=== PATIENT | female | born 1955 | race Caucasian/White ===

== ENCOUNTER 2017-09-29 14:19 | Emergency (ER) | payer MEDICARE, MEDICAID, SELFPAY ==
[2017-09-29 14:20] VITALS: BP 158/109; PULSE 110; RESP 26; TEMP 36.3; O2SAT 96; BMI 26.9
[2017-09-29 14:25] VITALS: O2SAT 93
--- NOTE | 2017-09-29 14:42 | RAD_ITS ---
STUDY: X-RAY CHEST REASON FOR EXAM: Female, 61 years old. 3 day history of worsening shortness of breath and fever and chills. TECHNIQUE: PA and lateral views of the chest. COMPARISON: None. FINDINGS: EKG electrodes are seen. Increased markings are seen in the right lower lobe suggestive of a right lower lobe infiltrate superimposed on scarring. Hyperinflation. There is no demonstrated pleural abnormality. Normal size heart. Normal mediastinum and magui. Normal visualized pulmonary arteries. There is atherosclerotic calcification of the aortic arch with tortuosity. There are diffuse degenerative changes of the visualized thoracic spine. Normal visualized ribs, clavicles, and shoulders. There is no demonstrated abnormality of the visualized soft tissue structures of the upper abdomen. RAD/Chest PA and Lateral IMPRESSION: Increased markings in the right lower lobe suggestive of early right lower lobe infiltrate superimposed on bibasilar scarring. Electronically Signed: Wilfred De La Cruz MD at 15:29 EST Tel [phone], Service support ,
--- NOTE | 2017-09-29 14:42 | EKG12_ITS ---
Test Reason : SOB Blood Pressure : / mmHG Vent. Rate : 099 BPM Atrial Rate : 099 BPM P-R Int : 130 ms QRS Dur : 076 ms QT Int : 320 ms P-R-T Axes : 066 057 056 degrees QTc Int : 410 ms Normal sinus rhythm Normal ECG Confirmed by DUKE POWERS, ROBE ([id number]), deputy editor in chief CLINT WISDOM ([id number]) on 10/03/2017 3:16:02 PM Referred By: JOSE DE JESUS Confirmed By:ROBE WALL MD
[2017-09-29] MEDS: 0.9% Normal Saline 1,000 ML 999 ML IV (14:51)
[2017-09-29 14:52] VITALS: PULSE 126; RESP 24
[2017-09-29] MEDS: Ipratropium/Albuterol Sulfate 3 ML AMPUL.NEB INHALATION (14:52)
[2017-09-29] MEDS: MethylPREDNISolone 125 MG/2 ML Vial IV (14:52)
[2017-09-29 14:59] LABS: Absolute Lymphocyte Count 0.54 X10^3/ul (0.83-4.51); Absolute Neutrophil Count 10.5 X10^3/uL (2.0-7.7); Basophil# 0.02 X10^3/uL; Basophil% 0.2 % (0-1); Differential Indicated SCAN CRITERIA MET; Hematocrit 49.5 % (37-47); Hemoglobin 17.3 g/dl (12.0-15.0); Lymphocyte # 0.54 X10^3/ul (4.0); Lymphocyte % 4.6 % (19-41); Mean Corp Hgb Conc 34.9 g/gl (32-36); Mean Corpuscular Hgb 31.1 pg (27.0-32.0); Mean Platelet Vol. 8.6 fl (6.2-12.0); Monocyte# 0.67 X10^3/uL; Monocyte% 5.7 % (0-10); Neutrophil # 10.53 X10^3/uL (2.7-7.7); Neutrophil % 89.2 % (47-70); POSITIVE COUNT NO; POSITIVE DIFFERENTIAL YES; POSITIVE MORPHOLOGY NO; Platelet Count 221 K/mm3 (150-450); RBC Distribution Width CV 14.9 % (11.6-14.6); RBC Distribution Width SD 48.7 fl (35.1-43.9); Red Blood Count 5.56 M/mm3 (4.2-5.4); White Blood Count 11.8 K/mm3 (4.4-11.0)
[2017-09-29 15:01] LABS: Anion Gap 10 (5-15); BUN 15 mg/dL (7-18); BUN/Creat Ratio 23.4 RATIO (10-20); Calcium,Total 8.5 mg/dL (8.5-10.1); Chloride 97 mmol/L (98-107); Creatinine, Serum 0.64 mg/dL (0.55-1.02); EST Glomerular Filtration Rate 99 mL/min (>60); Est Glom Filt Rate - Afr Amer 120 mL/min (>60); Estimated Creatinine Clearance 74.43 ml/min; Glucose 110 mg/dL (70-110); Sodium Level 131 mmol/L (136-145)
[2017-09-29 15:09] LABS: Lactic Acid 1.2 mmol/L (0.4-2.0)
[2017-09-29 15:13] LABS: Differential Comment SCANNED
--- NOTE | 2017-09-29 16:11 | ED.VISSUMM ---
- ER Visit Summary Date of Service: 09/29/17 Chief Complaint: Cough and shortness of breath History of Present Illness: The patient is a 61 F with no local primary care physician. She reports his cough and shortness of breath began 3 days ago. She reports her shortness of breath is mild at this time, but is severe at worst. Is worsened by walking or coughing. She reports that she has not had her inhaler for the past 3 weeks. She does smoke a pack per day. Patient complains of subjective fever and chills. She reports that she has constant chest tightness for the past 3 days. Physical Examination: Vitals: Stable. Afebrile. General: Well-nourished and well-developed. Head: Normocephalic atraumatic. Neck: Supple, no lymphadenopathy. No JVD. Nontender. Cardiovascular: Regular rate and rhythm. No murmurs. Respiratory: No respiratory distress. Moderate wheezing bilaterally with mildly decreased air movement. Abdominal: Soft, nontender, nondistended, normal bowel sounds. No guarding, rebound, or peritoneal signs. Back: Nontender. Extremities: Nontender, no edema. Skin: Normal color, no rash. Neurologic: Alert and oriented ?3. Cranial nerves II through XII are intact. Normal strength and sensation. Psych: Normal affect. Test Results: EKG is sinus at 99 with no acute changes. Chest x-ray shows an early right lower lobe infiltrate. CBC is marked for white count 11.8, H&H is 17.3 and 49.5, segmented neutrophils 89, monocytes of 5. Chem-7 is more for sodium 131 chloride of 97. Lactic acid is normal. Emergency Department Course and Treatment: She was treated albuterol and Atrovent aerosols. She was given Solu-Medrol IV. On repeat exam she feels much improved and would like to go home. Treatment Plan: She has a pneumonia severity index of 53 making her class II. She is treated with Levaquin here. She will be discharged with Levaquin, albuterol, and prednisone. Instructed follow-up Dr. Mas in 3-5 days for another exam. Return to the emergency department for any worsening symptoms. Disposition: To home in improved and stable condition. Impression: 1. Pneumonia, community-acquired. 2. COPD. This note was generated with [employer]moreation software. It may contain incorrect words, spelling, and punctuation that were not noted in review of the chart prior to signing ED Disposition - Plan for ED Patient: Disposition: Home or Assisted Living Chief Complaint: Shortness of Breath Instructions: ED Pneumonia Adult Prescriptions: Albuterol Inhaler [Ventolin Hfa] 1 - 2 puff INHALATION Q4H PRN PRN #1 inhaler PRN Reason: Wheezing Levofloxacin [Levaquin] 750 mg PO DAILY #7 tablet Prednisone 10 mg PO DAILY #63 tablet
[2017-09-29] MEDS: levoFLOXacin 750 MG Tablet PO (16:29)
[2017-09-29 16:30] VITALS: BP 152/92; PULSE 99; RESP 18; O2SAT 93
== END 2017-09-29 16:35 | disposition home or self-care (01) ==
PROVIDERS: Emergency Provider Emergency Medicine; Family Provider Nurse Practitioner Family; PCP Nurse Practitioner Family
DX: J44.0 Chronic obstructive pulmonary disease with (acute) lower respiratory infection (principal); J18.9 Pneumonia, unspecified organism; I10 Essential (primary) hypertension; R19.7 Diarrhea, unspecified; F43.10 Post-traumatic stress disorder, unspecified; X58.XXXA Exposure to other specified factors, initial encounter; Y93.9 Activity, unspecified; Y92.9 Unspecified place or not applicable; Y99.9 Unspecified external cause status; F17.200 Nicotine dependence, unspecified, uncomplicated; Z79.899 Other long term (current) drug therapy
CPT/HCPCS: 36415; 71046; 80048; 83605; 85025; 87040; 93005; 94640; 96361; 96374; 99285

== ENCOUNTER 2018-11-22 08:53 | Emergency (ER) | payer MEDICARE, SELFPAY ==
[2018-11-22 08:53] VITALS: BP 166/112; PULSE 93; RESP 26; TEMP 37; O2SAT 92; BMI 32.0
--- NOTE | 2018-11-22 09:03 | EKG12_ITS ---
Test Reason : Blood Pressure : / mmHG Vent. Rate : 080 BPM Atrial Rate : 080 BPM P-R Int : 144 ms QRS Dur : 082 ms QT Int : 384 ms P-R-T Axes : 071 049 026 degrees QTc Int : 442 ms Normal sinus rhythm Normal ECG Confirmed by ROBE WALL MD ([id number]), research editor KINGS SAAVEDRA ([id number]) on 11/23/2018 1:09:27 PM Referred By: ADAM Confirmed By:ROBE WALL MD
--- NOTE | 2018-11-22 09:06 | ED.VISSUMM ---
- ER Visit Summary Date of Service: 11/22/18 Chief Complaint: Shortness of breath History of Present Illness: The patient is a 63 F with history of COPD. She uses inhalers at home. She is not on home oxygen. Patient reports a one-week history of increasing shortness of breath, wheezing, and cough. She denies fever. She states she is using her inhalers more than normal. She has not been on steroids for her breathing since she had pneumonia last year. Physical Examination: Blood pressure is 166/112, temperature 98.6, heart rate 93, respiratory rate 26, pulse ox 92% on room air. Patient sitting upright in bed she is slightly tachypneic. She is able to speak full sentences. Head neck examination otherwise unremarkable. Heart is regular rate and rhythm. Lung sounds with tight expiratory wheezes throughout. Abdomen is soft nontender. Test Results: CBC significant for hemoglobin concentrated at 17.1. Chemistry studies normal. EKG is sinus 80 with no sign of acute ischemia. Portable chest x-ray shows hyperinflation with no acute abnormality. Emergency Department Course and Treatment: Patient was given Solu-Medrol along with DuoNeb and 2 albuterol treatments. On repeat evaluation she feels much improved. Respiratory rate is 18 and pulse ox is 100% on room air. Patient be treated with a course of Zithromax as well as prednisone at home. Test results are discussed with her and she will continue her albuterol as well. Treatment Plan: [] Disposition: Discharge Impression: COPD exacerbation This note was generated with [employer] dictation software. It may contain incorrect words, spelling, and punctuation that were not noted in review of the chart prior to signing ED Disposition - Plan for ED Patient: Referrals: Margarito Acevedo, CIRCLE SAW OPERATOR-C [NON-STAFF] -
--- NOTE | 2018-11-22 09:10 | RAD_ITS ---
STUDY: X-RAY CHEST REASON FOR EXAM: Female, 63 years old. 3 day history of shortness of breath. TECHNIQUE: Single AP portable view of the chest. COMPARISON: Comparison is made with prior study dated September 29, 2017. FINDINGS: EKG electrodes are seen. Hyperinflation. Mild increased linear markings at the lung bases suggestive of a mild scarring. No acute infiltrate is seen. Decreased bronchovascular markings in the upper lobes suggestive of emphysematous changes. There is no demonstrated pleural abnormality. Normal size heart. Normal mediastinum and magui. Normal visualized pulmonary arteries. There is atherosclerotic tortuosity of the aortic arch and descending thoracic aorta. There are degenerative changes of the visualized thoracic spine. Normal visualized ribs, clavicles, and shoulders. There is no demonstrated abnormality of the visualized soft tissue structures of the upper abdomen. RAD/Chest 1 View (Portable) IMPRESSION: Hyperinflation. No acute abnormality is seen. Electronically Signed: Wilfred De La Cruz, at 9:43 EDT , Service support ,
[2018-11-22 09:32] VITALS: PULSE 69; RESP 20
[2018-11-22 09:32] LABS: Absolute Lymphocyte Count 1.28 X10^3/ul (0.83-4.51); Absolute Neutrophil Count 4.4 X10^3/uL (2.0-7.7); Basophil# 0.03 X10^3/uL; Basophil% 0.5 % (0-1); Eosinophil# 0.22 X10^3/uL; Eosinophils% 3.4 % (0-5); Hematocrit 52.4 % (37-47); Hemoglobin 17.1 g/dl (12.0-15.0); Lymphocyte # 1.28 X10^3/ul (4.0); Mean Corp Hgb Conc 32.6 g/gl (32-36); Mean Corpuscular Hgb 28.2 pg (27.0-32.0); Mean Corpuscular Volume 86.3 fL (81-99); Mean Platelet Vol. 8.5 fl (6.2-12.0); Monocyte# 0.44 X10^3/uL; Monocyte% 6.9 % (0-10); Neutrophil # 4.41 X10^3/uL (2.7-7.7); Neutrophil % 68.9 % (47-70); Platelet Count 259 K/mm3 (150-450); RBC Distribution Width CV 15.3 % (11.6-14.6); Red Blood Count 6.07 M/mm3 (4.2-5.4); White Blood Count 6.4 K/mm3 (4.4-11.0)
[2018-11-22] MEDS: Albuterol 2.5 MG/3 ML VIAL.NEB. INHALATION ×2 (09:32)
[2018-11-22] MEDS: Ipratropium/Albuterol Sulfate 3 ML AMPUL.NEB INHALATION (09:32)
[2018-11-22 09:33] VITALS: TEMP 37; O2SAT 97
[2018-11-22 09:33] LABS: POSITIVE COUNT NO; POSITIVE DIFFERENTIAL NO; POSITIVE MORPHOLOGY NO
[2018-11-22 09:48] LABS: Anion Gap 9 (5-15); BUN 10 mg/dL (7-18); BUN/Creat Ratio 11.9 RATIO (10-20); Calcium,Total 9.1 mg/dL (8.5-10.1); Chloride 103 mmol/L (98-107); Creatinine, Serum 0.84 mg/dL (0.55-1.02); EST Glomerular Filtration Rate 72 mL/min (>60); Est Glom Filt Rate - Afr Amer 88 mL/min (>60); Estimated Creatinine Clearance 52.81 ml/min; Glucose 106 mg/dL (74-106); Potassium 3.8 mmol/L (3.5-5.1); Sodium Level 140 mmol/L (136-145)
[2018-11-22] MEDS: MethylPREDNISolone 125 MG/2 ML Vial IV (09:53)
[2018-11-22] MEDS: 0.9% Normal Saline 1,000 ML 150 ML IV (09:54)
[2018-11-22 10:14] VITALS: BP 160/80; PULSE 82; RESP 18; TEMP 36.5; O2SAT 97; O2SAT 99
--- NOTE | 2018-11-22 11:00 | ED.DEP ---
ED Disposition - Plan for ED Patient: Disposition: Home or Assisted Living Instructions: ED COPD Flare Prescriptions: Azithromycin [Zithromax] 250 mg PO DAILY #4 tablet Prednisone 10 mg PO UD #33 tablet Referrals: Margarito Acevedo NP-C [NON-STAFF] - 1 Week
[2018-11-22 11:34] VITALS: BP 152/86; PULSE 74; RESP 18; TEMP 36.2; O2SAT 97
[2018-11-22] MEDS: Azithromycin 250 MG Tablet 500 MG PO (11:36)
== END 2018-11-22 11:37 | disposition home or self-care (01) ==
PROVIDERS: Emergency Provider Emergency Medicine; Family Provider Family Medicine; PCP Family Medicine
DX: J44.1 Chronic obstructive pulmonary disease with (acute) exacerbation (principal); I10 Essential (primary) hypertension; Z72.0 Tobacco use; Z87.01 Personal history of pneumonia (recurrent); Z79.899 Other long term (current) drug therapy
CPT/HCPCS: 71045; 80048; 85025; 93005; 94640; 96361; 96374; 99285; J7030

== ENCOUNTER → 2019-06-18 08:33 | Outpatient (CLI) | payer MEDICARE, SELFPAY ==
--- NOTE | 2019-06-18 08:37 | RAD_ITS ---
STUDY: X-RAY - LUMBAR SPINE REASON FOR EXAM: Female, 63 years old. Low back pain TECHNIQUE: 3 view(s) of the lumbar spine were obtained. COMPARISON: None FINDINGS: Normal lumbar lordosis. There is no substantial scoliosis. There is a 5 mm anterolisthesis of L4 on L5, otherwise normal alignment of the vertebrae. No compression fractures. Moderate loss of disc height at L2-L3. Mild loss of disc height at L3-L4 and L4-L5. Multilevel facet joint degenerative disease. There is atherosclerotic calcification of the abdominal aorta without a demonstrated aneurysm. There is a right sacral stimulator. RAD/Lumbar Spine 2 or 3 Views IMPRESSION: No acute abnormality. Multilevel degenerative changes. Electronically Signed: Festus Durham MD at 22:26 EDT , Service support ,
--- NOTE | 2019-06-18 08:40 | RAD_ITS ---
STUDY: X-RAY - PELVIS AND BILATERAL HIPS REASON FOR EXAM: Female, 63 years old. Hip pain. TECHNIQUE: AP view of the pelvis.? 2 views of the right hip, and 2 views of the left hip were obtained. COMPARISON: None. FINDINGS: There is a non-specific bowel gas pattern. There is a right sacral stimulator. There is cortical sclerosis and osteophyte formation of the sacroiliac joint consistent with degenerative osteoarthritic changes. Normal bilateral superior and inferior pubic rami. Normal pubic symphysis. Normal bilateral ischial tuberosities. Normal visualized right femoral head. Normal right acetabulum. Normal right hip joint. Normal visualized left femoral head. Normal left acetabulum. Normal left hip joint. RAD/Hips B/L min 2 views w/ Pelvis IMPRESSION: Normal bilateral hips. No acute fractures or dislocations. Probable bilateral sacroiliac joint degenerative changes. Electronically Signed: Festus Durham MD at 22:42 EDT , Service support ,
== END ==
PROVIDERS: Family Provider Family Medicine; PCP Family Medicine; Referring Provider Anesthesiology Pain Medicine; Visit Provider Anesthesiology Pain Medicine
DX: M54.9 Dorsalgia, unspecified (principal); M25.559 Pain in unspecified hip
CPT/HCPCS: 72100; 73521

== ENCOUNTER → 2019-07-23 15:54 | Outpatient (CLI) | payer MEDICARE, SELFPAY ==
[2019-07-23 17:45] LABS: Amphetamine Urine VISTA NEGATIVE (<1000 ng/mL); Barbiturate Urine VISTA NEGATIVE (< 200 ng/mL); Benzodiazepine Urine VISTA NEGATIVE (< 200 ng/mL); Cocaine Urine VISTA NEGATIVE (< 300 ng/mL); Ecstacy Urine VISTA NEGATIVE (< 500 ng/mL); Methadone Urine VISTA NEGATIVE (< 300 ng/mL); PCP Urine VISTA NEGATIVE (< 25 ng/mL); THC Urine VISTA POSITIVE (< 50 ng/mL); Vista UDS pH Range 6
== END ==
PROVIDERS: Family Provider Family Medicine; PCP Family Medicine; Referring Provider Anesthesiology Pain Medicine; Visit Provider Anesthesiology Pain Medicine
DX: F11.20 Opioid dependence, uncomplicated (principal)
CPT/HCPCS: 80307

== ENCOUNTER → 2019-10-19 15:26 | Outpatient (CLI) | payer MEDICARE, MEDICAID, SELFPAY ==
--- NOTE | 2019-10-19 15:35 | CT_ITS ---
STUDY: CT LUMBAR SPINE WITHOUT CONTRAST REASON FOR EXAM: Female, 64 years old. Back pain and leg pain RADIATION DOSAGE (If Supplied By Facility): CTDIvol = ( 18.46 ) mGy, DLP = ( 536.36 ) mGycm TECHNIQUE: CT of the lumbar spine was performed without contrast. Sagittal and coronal images were reconstructed. Individualized dose optimization techniques were used for this CT. COMPARISON: None FINDINGS: Examination is moderately limited due to suboptimal technique related to suboptimally low radiation dose. Protocol modifications were not performed to allow for patient''s large body habitus. Osseous structures are diagnostic. Assessment of soft tissues is limited. Evaluation of canal contents is nondiagnostic as they cannot be resolved. Some diagnostic information is available. There is minor levoscoliosis of the lumbar spine with preserved lateral alignment. Vertebral bodies are intact without destructive lesions. There is grade 1 degenerative anterolisthesis of L4 on L5, less than 2 mm. Mineralization is normal. Paraspinous soft tissues and SI joints are normal. There is a right sacral stimulation wire. There is probable mild to moderate spondylotic thecal sac stenosis at L2-L3. There is probable severe thecal sac stenosis at L3-L4, L4-L5. There are probably moderate right L3-L4 and L4-L5 foraminal stenoses. CT/Spine Lumbar without Contrast IMPRESSION: 1. Technically limited exam, see above for description. If definitive treatment, such as surgery, is contemplated a repeat diagnostic examination is advised. 2. Probable severe thecal sac stenosis at L3-L4 and L4-L5. Electronically Signed: Carlos A Conner, at 16:43 EST Tel , Service support ,
== END ==
PROVIDERS: PCP Family Medicine; Referring Provider Anesthesiology Pain Medicine; Visit Provider Anesthesiology Pain Medicine
DX: M54.9 Dorsalgia, unspecified (principal); M79.606 Pain in leg, unspecified
CPT/HCPCS: 72131

== ENCOUNTER 2020-03-12 16:31 | Emergency (ER) | payer MEDICARE, MEDICAID, SELFPAY ==
[2020-03-12 16:31] VITALS: BP 120/73; PULSE 69; RESP 16; TEMP 36.3
[2020-03-12 16:32] VITALS: BP 120/73; PULSE 69; RESP 16; TEMP 36.3; BMI 28.9
--- NOTE | 2020-03-12 16:50 | ED.VIS.GEN ---
History of Present Illness Chief Complaint: Lower Extremity Injury Informant: Patient Onset: Today Current Severity: Moderate Maximum Severity: Moderate Narrative: Patient present secondary left ankle injury. She was coming down some steps, missed the last step and rolled her ankle causing her to fall to the ground. She is abrasions to her left knee. She states whenever she tries to weight-bear it feels like hot knives shooting up from her ankle. She denies any other injury. - Past Medical History (1) Hypertension Status: Chronic (2) COPD (chronic obstructive pulmonary disease) Status: Chronic (3) PTSD (post-traumatic stress disorder) Status: Chronic Past Medical History - Allergies and Home Meds Allergies/Adverse Reactions: Allergies Sulfa (Sulfonamide Antibiotics) Adverse Reaction (Verified 11/22/18 08:55) Nausea Primary Care Physician: Octaviano Adkins MD [Primary Care Provider] - Prior records reviewed: Yes Smoking Status: Former smoker Review of Systems General: Denies: Chills, Fever Eyes: Denies: Visual changes - bilaterally ENT: Denies: Bilateral ear pain Cardiovascular: Denies: Chest pain Respiratory: Denies: Dyspnea, Cough Gastrointestinal: Denies: Abdominal pain, Nausea, Vomiting, Diarrhea Genitourinary: Denies: Dysuria Musculoskeletal: Reports: Swelling, Extremity Pain. Denies: Neck pain, Back pain Skin: Reports: Abrasions Hematologic: Denies: Easy bruising, Easy bleeding Allergy: Denies: Uticaria Physical Exam Vital Signs/Narrative: Vital Signs Temp Pulse Resp BP 03/12/20 16:32 97.4 F L 69 16 120/73 03/12/20 16:31 97.4 F L 69 16 120/73 Inital Vital Signs reviewed: Yes General: Well nourished, Well developed Head: Normocephalic ENT: Moist mucous membranes Neck: Supple Cardiovascular: Regular rate, Regular rhythm Respiratory: No distress, CTA bilaterally Abdomen: Soft, Nontender Extremities: - - Lateral malleolar tenderness to palpation. Significant edema. No tenderness over the foot itself. No tenderness of the proximal fibula. Skin: - - Abrasion noted to the anterior knee without bony tenderness to this area. Neurological: Alert, Oriented x3 Psychological: Normal affect Diagnostic/Tx/Re-eval Impressions Ankle X-Ray 03/12/20 17:08 IMPRESSION: Possible nondisplaced fracture through the tip of the lateral malleolus. No other suspicion of fractures. Electronically Signed: Festus Durham MD at 17:34 EDT , Service support , 03/12/20 17:08 Ankle min 3 Views [RAD] Stat - Medical Decision Making Patient was given naproxen here. Ankle was iced and elevated. There is a possible nondisplaced fracture through the distal lateral malleolus. This was reviewed with the patient. Should be given a walking boot and crutches. She is referred to orthopedics for follow-up. ED Disposition - Plan for ED Patient: Disposition: Home or Assisted Living Diagnosis: Ankle fracture, lateral malleolus, closed Instructions: ED Ankle Fracture Prescriptions: Hydrocodone Bitart/Apap 5-325 [[place] 5MG-325MG] 1 tablet PO Q6H PRN PRN 3 Days #10 tablet PRN Reason: Pain Transmission Status: Sent to [facility] #30 Referrals: Berta Jackson DO [STAFF PHYSICIAN] - 5-7 Days
--- NOTE | 2020-03-12 17:08 | RAD_ITS ---
STUDY: X-RAY - LEFT ANKLE REASON FOR EXAM: Female, 64 years old. LEFT ANKLE PAIN AFTER FALL TECHNIQUE: 3 view(s) of the ankle. COMPARISON: None. FINDINGS: Possible nondisplaced fracture through the tip of the lateral malleolus. No other suspicion of fractures. No dislocations. Normal visualized distal tibia . Normal tibiotalar articulation and ankle mortise. Normal visualized talus and calcaneus. The visualized subtalar, talonavicular, calcaneocuboid and tarsal articulations are normal. Prominent lateral soft tissue swelling. RAD/Ankle min 3 Views IMPRESSION: Possible nondisplaced fracture through the tip of the lateral malleolus. No other suspicion of fractures. Electronically Signed: Festus Durham MD at 17:34 EDT , Service support ,
[2020-03-12] MEDS: Naproxen 500 MG Tablet PO (17:28)
[2020-03-12 18:36] VITALS: BP 122/71; PULSE 78; RESP 15; O2SAT 99
== END 2020-03-12 18:36 | disposition home or self-care (01) ==
PROVIDERS: Emergency Provider Emergency Medicine; PCP Family Medicine
DX: S82.65XA Nondisplaced fracture of lateral malleolus of left fibula, initial encounter for closed fracture (principal); S80.212A Abrasion, left knee, initial encounter; W10.9XXA Fall (on) (from) unspecified stairs and steps, initial encounter; Y93.9 Activity, unspecified; Y92.9 Unspecified place or not applicable; Y99.9 Unspecified external cause status; J44.9 Chronic obstructive pulmonary disease, unspecified; I10 Essential (primary) hypertension; F43.10 Post-traumatic stress disorder, unspecified; Z79.899 Other long term (current) drug therapy; Z87.891 Personal history of nicotine dependence
CPT/HCPCS: 73610; 99284

== ENCOUNTER 2020-03-28 17:02 | Emergency (ER) | payer MEDICARE, MEDICAID, SELFPAY ==
[2020-03-14 12:53] VITALS: BMI 28.9
[2020-03-28] VITALS (8 sets, daily range): BP systolic 118–135; BP diastolic 75–101; PULSE 83–112; RESP 13–22; TEMP 36.8–38.7; O2SAT 91–98; BMI 28.9
--- NOTE | 2020-03-28 17:21 | EKG12_ITS ---
Test Reason : ILLNESS Blood Pressure : / mmHG Vent. Rate : 101 BPM Atrial Rate : 101 BPM P-R Int : 140 ms QRS Dur : 082 ms QT Int : 330 ms P-R-T Axes : 056 031 049 degrees QTc Int : 427 ms Sinus tachycardia Otherwise normal ECG Confirmed by DUKE POWERS, ROBE ([id number]), editor publications KINGS SAAVEDRA ([id number]) on 04/01/2020 8:41:21 AM Referred By: CHEVY Confirmed By:ROBE WALL MD
[2020-03-28] MEDS: 0.9% Normal Saline 1,000 ML 250 ML IV (18:12)
[2020-03-28] MEDS: Ceftriaxone 1 GM/50 ML BAG IV (18:12)
--- NOTE | 2020-03-28 18:13 | ED.DCSUM_ITS ---
History of Present Illness Chief Complaint: Fever Informant: Patient, Family Onset: Today Context: Sudden Onset Timing: Continuous Quality: Documented temperature 101.0 ?F Location: Home Current Severity: Mild Maximum Severity: Mild Worsened by: Nothing Relieved by: Nothing Associated Symptoms: Frequency and urgency Narrative: Patient is a 64-year-old woman who presents with documented fever to 101.0 ?F. Patient's also complaining of frequency and urgency. She had a urinary tract infection 6 months ago. She denies headache, visual, ocular auditory symptoms. She reports runny nose due to chronic allergies. She denies any auditory or ear symptoms. She denies sore throat. She denies change in taste or smell. She denies cough or shortness of breath. She denies chest discomfort. She does report nausea without vomiting or diarrhea. She denies flank pain. She denies skin lesion or rash. She denies orthostatic symptoms. He denies allergy to penicillin or cephalosporin. Prior similar symptoms: Yes Recent Illness/Hospitalization: No - Past Medical History (1) COPD (chronic obstructive pulmonary disease) Status: Chronic (2) Hypertension Status: Chronic (3) PTSD (post-traumatic stress disorder) Status: Chronic Past Medical History - Allergies and Home Meds Allergies/Adverse Reactions: Allergies Sulfa (Sulfonamide Antibiotics) Adverse Reaction (Verified 03/28/20 17:02) Nausea Primary Care Physician: Octaviano Adkins MD [Primary Care Provider] - Prior records reviewed: Yes - Urinary tract infection 6 months ago Surgical History: noncontributory Lives: With Family Smoking Status: Former smoker Alcohol: None Drugs: None Review of Systems General: Reports: Chills, Fever, Malaise. Denies: Subjective, Sweats, Weight loss Eyes: Denies: Visual changes - bilaterally ENT: Reports: Rhinorrhea. Denies: Bilateral ear pain, Sore throat Cardiovascular: Denies: Chest pain, Palpitations Respiratory: Denies: Dyspnea, Cough, Dyspnea on exertion Gastrointestinal: Reports: Nausea. Denies: Abdominal pain, Vomiting, Diarrhea Genitourinary: Reports: Frequency. Denies: Dysuria, Hematuria Musculoskeletal: Denies: Myalgias, Arthralgias, Neck pain, Back pain, Swelling, Extremity Pain Skin: Denies: Rash, Wounds Neurological: Denies: Headache, Weakness, Parasthesia, Numbness, -, - Endocrine: Denies: Polyuria, Polydipsia Hematologic: Denies: Easy bruising, Easy bleeding Physical Exam Vital Signs/Narrative: Vital Signs Temp Pulse Resp BP Pulse Ox 03/28/20 17:51 101.6 F H 99 13 128/95 H 94 03/28/20 17:36 91 03/28/20 17:15 110 H 22 H 118/92 H 94 03/28/20 17:03 100.7 F H 112 H 18 135/101 H 92 Inital Vital Signs reviewed: Yes General: Well nourished, Well developed, No Acute Distress Head: Normocephalic, Atraumatic Eyes: Perrl, EOMI. Negative for: Pale conjunctiva, Scleral icterus ENT: Moist mucous membranes, No rhinorrhea, TM's clear Neck: Supple, Nontender, No lymphadenopathy, No JVD Cardiovascular: Regular rhythm, No murmurs, Normal S1, Normal S2, Tachycardia Respiratory: No distress, CTA bilaterally, Chest nontender, - - Patient is tachypneic and breathing greater than 20 times a minute not 18 is documented Abdomen: Soft, Nontender, Nondistended, Normal bowel sounds, No masses Rectal: Deferred Back: Nontender, Normal Inspection. Negative for: CVA tenderness Extremities: Nontender, No edema Skin: Normal color, No rash Neurological: Alert, Oriented x3, Cranial nerves II-XII grossly intact, Normal Strength, Normal Sensation, Normal DTR Psychological: Normal affect, Normal Mood Diagnostic/Tx/Re-eval Laboratory Results 03/28/20 03/28/20 03/28/20 17:48 17:48 17:48 WBC 16.6 H RBC 4.71 Hgb 13.2 Hct 39.3 MCV 83.4 MCH 28.0 MCHC 33.6 RDW Std Deviation 43.4 RDW Coeff of Ronny 14.2 Plt Count 338 MPV 8.6 Immature Gran % (Auto) 1.400 H Neut % (Auto) 84.5 H Lymph % (Auto) 6.3 L [place] % (Auto) 7.1 Eos % (Auto) 0.4 Baso % (Auto) 0.3 Absolute Neuts (auto) 14.0 H Absolute Lymphs (auto) 1.04 Nucleated RBC % 0 PT 13.8 INR 1.1 APTT 32.2 Sodium 131 L Potassium 4.5 Chloride 99 Carbon Dioxide 28.0 Anion Gap 4 L BUN 13 Creatinine 0.87 Estim Creat Clear Calc 50.31 Est GFR (MDRD) Af Amer 84 Est GFR (MDRD) Non-Af 69 BUN/Creatinine Ratio 14.9 Glucose 108 H Lactic Acid Calcium 9.1 Total Bilirubin 0.80 AST 44 H ALT 35 Alkaline Phosphatase 127 H Total Protein 7.6 Albumin 2.7 L Globulin 4.9 H Albumin/Globulin Ratio 0.6 L Urine Color Urine Clarity Urine pH Ur Specific [place] Urine Protein Urine Glucose (UA) Urine Ketones Urine Occult Blood Urine Nitrite Urine Bilirubin Urine Urobilinogen Ur Leukocyte Esterase Urine RBC Urine WBC Ur Squamous Epith Cells Urine Bacteria Urine Mucus 03/28/20 03/28/20 17:48 18:14 WBC RBC Hgb Hct MCV MCH MCHC RDW Std Deviation RDW Coeff of Ronny Plt Count MPV Immature Gran % (Auto) Neut % (Auto) Lymph % (Auto) [place] % (Auto) Eos % (Auto) Baso % (Auto) Absolute Neuts (auto) Absolute Lymphs (auto) Nucleated RBC % PT INR APTT Sodium Potassium Chloride Carbon Dioxide Anion Gap BUN Creatinine Estim Creat Clear Calc Est GFR (MDRD) Af Amer Est GFR (MDRD) Non-Af BUN/Creatinine Ratio Glucose Lactic Acid 0.8 Calcium Total Bilirubin AST ALT Alkaline Phosphatase Total Protein Albumin Globulin Albumin/Globulin Ratio Urine Color YELLOW Urine Clarity Turbid Urine pH 5.0 Ur Specific [place] 1.015 Urine Protein 100 H Urine Glucose (UA) Normal Urine Ketones 5 H Urine Occult Blood 250 H Urine Nitrite Positive H Urine Bilirubin Negative Urine Urobilinogen Normal Ur Leukocyte Esterase 500 H Urine RBC 10-25 SEEN Urine WBC >100 SEEN Ur Squamous Epith Cells 5-10 SEEN Urine Bacteria 3+ Urine Mucus 0 SEEN Does have sepsis. There is no evidence of severe sepsis. Patient states she feels well enough to go home. Patient does not meet criteria for full admission. Will discharge with prescription for antibiotics. She was given specific instructions to return. - EKG Initial EKG Interpretation: Sinus Tachycardia - Sinus tachycardia with a ventricular rate of 101. DE interval 140 ms. QRS duration 82 ms. QT duration 330 ms. [place] normal. The only abnormality is sinus tachycardia. - Medical Decision Making Patient with fever and urinary symptoms. Sepsis work-up was initiated to de termine if she does have a urinary tract infection. If urine is unremarkable will obtain chest x-ray and test for COVID. She did receive 1 g of Rocephin IV piggyback. ED Disposition - Plan for ED Patient: Disposition: Home or Assisted Living Diagnosis: Urinary tract infection, Sepsis, Sinus tachycardia by electrocardiogram Instructions: ED CYSTITIS Female Adult Prescriptions: Cephalexin [Keflex] 500 mg PO Q6 #30 cap Transmission Status: Pending to [facility] #30 Referrals: Octaviano Adkins MD [Primary Care Provider] - 3-5 Days
[2020-03-28 18:23] LABS: Mucous, Urine 0 SEEN /hpf (<or=2+)
[2020-03-28 18:23] LABS: Absolute Lymphocyte Count 1.04 X10^3/uL (0.83-4.51); Basophil# 0.05 X10^3/uL; Basophil% 0.3 % (0-1); Eosinophil# 0.06 X10^3/uL; Eosinophils% 0.4 % (0-5); Hematocrit 39.3 % (37-47); Hemoglobin 13.2 g/dL (12.0-15.0); Lymphocyte # 1.04 X10^3/ul (4.0); Lymphocyte % 6.3 % (19-41); Mean Corp Hgb Conc 33.6 g/dL (32-36); Mean Corpuscular Volume 83.4 fL (81-99); Mean Platelet Vol. 8.6 fl (6.2-12.0); Monocyte# 1.18 X10^3/uL; Monocyte% 7.1 % (0-10); NRBC Flagged by Analyzer 0 % (0-5); Neutrophil # 14.03 X10^3/uL (2.7-7.7); Neutrophil % 84.5 % (47-70); Platelet Count 338 K/mm3 (150-450); RBC Distribution Width CV 14.2 % (11.6-14.6); RBC Distribution Width SD 43.4 fl (35.1-43.9); Red Blood Count 4.71 M/mm3 (4.2-5.4); White Blood Count 16.6 K/mm3 (4.4-11.0)
[2020-03-28 18:24] LABS: ALB/GLOB Ratio 0.6 RATIO (0.9-2.4); AST(SGOT) 44 U/L (15-37); Alanine Aminotransfer ALT/SGPT 35 U/L (13-56); Albumin, Serum 2.7 g/dL (3.2-5.0); Alkaline Phosphatase 127 U/L (45-117); Anion Gap 4 (5-15); BUN 13 mg/dL (7-18); BUN/Creat Ratio 14.9 RATIO (10-20); Calcium,Total 9.1 mg/dL (8.5-10.1); Chloride 99 mmol/L (98-107); Creatinine, Serum 0.87 mg/dL (0.55-1.02); EST Glomerular Filtration Rate 69 mL/min (>60); Est Glom Filt Rate - Afr Amer 84 mL/min (>60); Estimated Creatinine Clearance 50.31 ml/min; Globulin 4.9 g/dL (2.2-4.2); Glucose 108 mg/dL (74-106); Potassium 4.5 mmol/L (3.5-5.1); Protein, Total 7.6 g/dL (6.4-8.2); Sodium Level 131 mmol/L (136-145)
[2020-03-28 18:27] LABS: Lactic Acid 0.8 mmol/L (0.4-1.9)
[2020-03-28 18:32] LABS: International Normalized Ratio 1.1; Prothrombin Time (Protime)PT. 13.8 SECONDS (11.7-14.9)
[2020-03-28 18:33] LABS: Partial Thromboplast Time 32.2 Seconds (24.1-36.2)
[2020-03-28 18:54] LABS: Glucose, Dipstick Normal (Normal); Ketone-Dipstick 5 mg/dl (Negative); Leukocyte Esterase-Dipstick 500 /ul (Negative); Nitrite-Dipstick Positive (Negative); Occult Blood-Urine 250 /ul (Negative); Protein-Dipstick 100 mg/dl (Negative); Specific Gravity, Urine 1.015 (1.002-1.030); Urine Bilirubin Dipstick Negative (Negative); Urine Urobilinogen Normal (Normal)
[2020-03-28 19:12] LABS: Color, Urine YELLOW (Yellow); Urine Clarity Turbid (Clear)
[2020-03-28 19:21] LABS: White Blood Cells >100 SEEN /hpf (0-5)
[2020-03-28 19:22] LABS: Bacteria 3+ /hpf (None Seen); Red Blood Cells-Urine 10-25 SEEN /hpf (0-5); Squamous Epithelial Cells - UA 5-10 SEEN /hpf (5-10)
[2020-03-28] MEDS: Acetaminophen 500 MG Tablet 1000 MG PO (19:22)
== END 2020-03-28 20:23 | disposition home or self-care (01) ==
PROVIDERS: Emergency Provider Emergency Medicine; PCP Family Medicine
DX: A41.9 Sepsis, unspecified organism (principal); N39.0 Urinary tract infection, site not specified; J44.9 Chronic obstructive pulmonary disease, unspecified; I10 Essential (primary) hypertension; F43.10 Post-traumatic stress disorder, unspecified; Z79.899 Other long term (current) drug therapy; Z87.891 Personal history of nicotine dependence; Z87.440 Personal history of urinary (tract) infections; Z88.2 Allergy status to sulfonamides
CPT/HCPCS: 80053; 81001; 83605; 85025; 85610; 85730; 87040; 87077; 87086; 87088; 87186; 93005; 96361; 96365; 99284; J7030

== ENCOUNTER → 2020-04-11 13:08 | Outpatient (CLI) | payer MEDICARE, MEDICAID, SELFPAY ==
[2020-03-28 17:03] VITALS: BMI 28.9
--- NOTE | 2020-04-11 13:10 | RAD_ITS ---
STUDY: X-RAY - LEFT ANKLE REASON FOR EXAM: Female, 64 years old. 1 MONTH FX F/U, PAIN TECHNIQUE: 3 view(s) of the ankle. COMPARISON: Prior study of 03/12/2020 FINDINGS: Normal visualized distal tibia and fibula. There has been interval healing of previously noted nondisplaced transverse lateral malleolar fracture seen previously. Normal tibiotalar articulation and ankle mortise. Normal visualized talus and calcaneus. The visualized subtalar, talonavicular, calcaneocuboid and tarsal articulations are normal. The soft tissue structures are unremarkable. RAD/Ankle min 3 Views IMPRESSION: Interval healing of previously noted nondisplaced lateral malleolar fracture. Electronically Signed: Cedrick Sandy MD at 16:54 EDT , Service support ,
== END ==
PROVIDERS: PCP Family Medicine; Referring Provider Physician Assistant; Visit Provider Physician Assistant
DX: S82.65XA Nondisplaced fracture of lateral malleolus of left fibula, initial encounter for closed fracture (principal); X58.XXXA Exposure to other specified factors, initial encounter; Y93.9 Activity, unspecified; Y92.9 Unspecified place or not applicable; Y99.9 Unspecified external cause status
CPT/HCPCS: 73610

== ENCOUNTER 2020-09-13 18:53 | Inpatient (IN) | payer MEDICARE, MEDICAID, SELFPAY ==
[2020-04-11 13:10] VITALS: BMI 28.9
[2020-09-13] VITALS (8 sets, daily range): BP systolic 86–113; BP diastolic 58–79; PULSE 72–110; RESP 15–24; TEMP 35.6–36.7; O2SAT 90–99; BMI 32.0
--- NOTE | 2020-09-13 19:07 | EKG12_ITS ---
Test Reason : SOB Blood Pressure : / mmHG Vent. Rate : 100 BPM Atrial Rate : 100 BPM P-R Int : 128 ms QRS Dur : 076 ms QT Int : 324 ms P-R-T Axes : 063 049 026 degrees QTc Int : 417 ms Normal sinus rhythm Nonspecific ST abnormality Abnormal ECG Confirmed by DUKE POWERS, ROBE ([id number]), technical editor CLINT WISDOM ([id number]) on 09/17/2020 6:51:45 AM Referred By: ADAM Confirmed By:ROBE WALL MD
--- NOTE | 2020-09-13 19:09 | ED.DCSUM_ITS ---
History of Present Illness Chief Complaint: Weakness Detail of Chief Complaint: Weak, dizzy, short of breath, sweats Informant: Patient Onset: Weeks Context: Gradual Onset Current Severity: Moderate Maximum Severity: Moderate Narrative: Patient presents secondary to shortness of breath, weakness, dizziness. Patient states that she has had shortness of breath and weakness for the past 3 weeks. She has been seen by her PCP twice. She was first placed on antibiotic and steroid taper as she does have a history of COPD. She reported no improvement when she went back she was placed on a 28-day steroid taper. She is still on this currently. Patient states she is just not getting any better. Tonight she had a temperature up to 100.0 and did take ibuprofen prior to arrival. She states that she has sweats tonight. - Past Medical History (1) COPD (chronic obstructive pulmonary disease) Status: Chronic (2) Hypertension Status: Chronic (3) PTSD (post-traumatic stress disorder) Status: Chronic Past Medical History - Allergies and Home Meds Allergies/Adverse Reactions: Allergies Sulfa (Sulfonamide Antibiotics) Adverse Reaction (Verified 09/13/20 18:53) Nausea Primary Care Physician: Octaviano Adkins MD [Primary Care Provider] - Prior records reviewed: Yes Surgical History: noncontributory Smoking Status: Former smoker Review of Systems General: Reports: Fever, Sweats Eyes: Denies: Visual changes - bilaterally ENT: Denies: Bilateral ear pain Cardiovascular: Denies: Chest pain Respiratory: Reports: Dyspnea, Cough, Sputum Gastrointestinal: Denies: Abdominal pain, Vomiting, Diarrhea Genitourinary: Denies: Dysuria Musculoskeletal: Denies: Swelling, Extremity Pain Skin: Denies: Rash Neurological: Reports: Weakness. Denies: Headache Hematologic: Denies: Easy bruising, Easy bleeding Allergy: Denies: Uticaria Physical Exam Vital Signs/Narrative: Vital Signs Temp Pulse Resp BP Pulse Ox 09/13/20 18:54 96.0 F L 110 H 24 H 111/69 94 Inital Vital Signs reviewed: Yes General: Well nourished, Well developed Head: Normocephalic Neck: Supple Cardiovascular: Regular rate, Regular rhythm Respiratory: No distress, Decreased Air Movement, - - Mild tachypnea Abdomen: Soft, Nontender, Hypoactive bowel sounds Extremities: Nontender, No edema Skin: Normal color Neurological: Alert, Oriented x3 Psychological: Normal affect Diagnostic/Tx/Re-eval Chest X-Ray - ED: 1 View, Read by ED Physician, Normal, Heart, Lungs, Mediastinum Impressions Chest X-Ray 09/13/20 19:50 IMPRESSION: No acute findings. Electronically Signed: Christin Jhaveri MD at 20:26 EST Tel , Service support , Chest CTA 09/13/20 20:22 IMPRESSION: 1. No pulmonary embolism or arterial dissection. 2. COPD. Electronically Signed: Christin Jhaveri MD at 21:53 EST Tel , Service support , 09/13/20 19:50 Chest 1 View (Portable) [RAD] Stat 09/13/20 20:22 CTA Chest W/WO Contrast [CT] Stat Laboratory Results 09/13/20 09/13/20 09/13/20 19:20 19:25 19:25 WBC 21.9 H RBC 5.91 H Hgb 16.2 H Hct 47.8 H MCV 80.9 L MCH 27.4 MCHC 33.9 RDW Std Deviation 47.6 H RDW Coeff of Ronny 17.2 H Plt Count 323 MPV 8.2 Immature Gran % (Auto) 1.900 H Neut % (Auto) 92.5 H Lymph % (Auto) 2.1 L [place] % (Auto) 3.0 Eos % (Auto) 0.1 Baso % (Auto) 0.4 Absolute Neuts (auto) 20.3 H Absolute Lymphs (auto) 0.46 L Nucleated RBC % 0 D-Dimer Quant (PE/DVT) 1.44 H* Sodium Potassium Chloride Carbon Dioxide Anion Gap BUN Creatinine Estim Creat Clear Calc Est GFR (MDRD) Af Amer Est GFR (MDRD) Non-Af BUN/Creatinine Ratio Glucose Lactic Acid Calcium Troponin I Urine Color Urine Clarity Urine pH Ur Specific [place] Urine Protein Urine Glucose (UA) Urine Ketones Urine Occult Blood Urine Nitrite Urine Bilirubin Urine Urobilinogen Ur Leukocyte Esterase Urine RBC Urine WBC Ur Squamous Epith Cells Urine Bacteria Urine Mucus COVID-19 ([facility]) Not Detected 0109/13/20 09/13/20 19:25 19:25 21:45 WBC RBC Hgb Hct MCV MCH MCHC RDW Std Deviation RDW Coeff of Ronny Plt Count MPV Immature Gran % (Auto) Neut % (Auto) Lymph % (Auto) [place] % (Auto) Eos % (Auto) Baso % (Auto) Absolute Neuts (auto) Absolute Lymphs (auto) Nucleated RBC % D-Dimer Quant (PE/DVT) Sodium 130 L Potassium 4.0 Chloride 99 Carbon Dioxide 24.0 Anion Gap 7 BUN 28 H Creatinine 1.40 H Estim Creat Clear Calc 31.26 Est GFR (MDRD) Af Amer 48 L Est GFR (MDRD) Non-Af 40 L BUN/Creatinine Ratio 20.0 Glucose 151 H Lactic Acid 1.3 Calcium 9.5 Troponin I < 0.015 Urine Color Yellow Urine Clarity Clear Urine pH 5.0 Ur Specific [place] 1.010 Urine Protein 30 H Urine Glucose (UA) Normal Urine Ketones Negative Urine Occult Blood 150 H Urine Nitrite Positive H Urine Bilirubin Negative Urine Urobilinogen Normal Ur Leukocyte Esterase 25 H Urine RBC 0-5 SEEN Urine WBC 5-10 SEEN Ur Squamous Epith Cells 0-5 SEEN Urine Bacteria 1+ Urine Mucus 0 SEEN COVID-19 ([facility]) - EKG Initial EKG Interpretation: Sinus Rhythm - Sinus at 100 bpm with no significant ST change. - Medical Decision Making Patient was given a DuoNeb treatment. Nursing staff did advise that the patient's O2 sat was between 89 and 90% on room air and she was placed on 2 L nasal cannula. They also note the patient's blood pressure did drop into the high 80s systolic. She is currently receiving IV fluids and most recent pressure was 103 systolic. Patient states she does feel improved with oxygen in place. Chest x-ray is unremarkable. Blood work is significant for elevated white count, however she has been on steroids for the last 3 weeks as well. Lactic acid is normal. D-dimer is elevated however CTA does not reveal evidence of PE. Covid PCR is negative. Urinalysis does return with sign of infection. Urine culture will be sent and she is given a dose of IV Rocephin. Patient be admitted for further treatment. ED Disposition - Plan for ED Patient: Disposition: Acute Care Hospital [facility] Diagnosis: Sepsis, UTI (urinary tract infection), COPD exacerbation Referrals: Octaviano Adkins MD [Primary Care Provider] -
[2020-09-13] MEDS: Ipratropium/Albuterol Sulfate 3 ML AMPUL.NEB INHALATION (19:29)
[2020-09-13 19:37] LABS: Absolute Lymphocyte Count 0.46 X10^3/uL (0.83-4.51); Absolute Neutrophil Count 20.3 X10^3/uL (2.0-7.7); Basophil# 0.08 X10^3/uL; Basophil% 0.4 % (0-1); Eosinophil# 0.03 X10^3/uL; Eosinophils% 0.1 % (0-5); Hematocrit 47.8 % (37-47); Hemoglobin 16.2 g/dL (12.0-15.0); Lymphocyte # 0.46 X10^3/ul (4.0); Lymphocyte % 2.1 % (19-41); Mean Corp Hgb Conc 33.9 g/dL (32-36); Mean Corpuscular Hgb 27.4 pg (27.0-32.0); Mean Corpuscular Volume 80.9 fL (81-99); Mean Platelet Vol. 8.2 fl (6.2-12.0); Monocyte# 0.66 X10^3/uL; NRBC Flagged by Analyzer 0 % (0-5); Neutrophil # 20.27 X10^3/uL (2.7-7.7); Neutrophil % 92.5 % (47-70); POSITIVE DIFFERENTIAL YES; Platelet Count 323 K/mm3 (150-450); RBC Distribution Width CV 17.2 % (11.6-14.6); RBC Distribution Width SD 47.6 fl (35.1-43.9); Red Blood Count 5.91 M/mm3 (4.2-5.4); White Blood Count 21.9 K/mm3 (4.4-11.0)
[2020-09-13 19:49] LABS: D-Dimer Quantitative (DVT/PE) 1.44 FEU/ug/m (0.27-0.49); Differential Indicated SCAN CRITERIA MET
--- NOTE | 2020-09-13 19:50 | RAD_ITS ---
STUDY: X-RAY CHEST REASON FOR EXAM: Female, 64 years old. SOB, WEAKNESS, DIZZINESS. TECHNIQUE: Single AP portable view of the chest. COMPARISON: 11/22/2018. FINDINGS: No pleural effusion, vascular congestion or acute pulmonary inflammatory change. Mild chronic interstitial fibrosis. Normal size heart. Normal mediastinum and magui. Normal visualized pulmonary arteries. Normal visualized aortic arch and descending thoracic aorta. Normal visualized thoracic spine. Normal visualized ribs, clavicles, and shoulders. There is no demonstrated abnormality of the visualized soft tissue structures of the upper abdomen. RAD/Chest 1 View (Portable) IMPRESSION: No acute findings. Electronically Signed: Christin Jhaveri MD at 20:26 EST Tel , Service support ,
[2020-09-13 20:19] LABS: Anion Gap 7 (5-15); BUN 28 mg/dL (7-18); Calcium,Total 9.5 mg/dL (8.5-10.1); Chloride 99 mmol/L (98-107); EST Glomerular Filtration Rate 40 mL/min (>60); Est Glom Filt Rate - Afr Amer 48 mL/min (>60); Estimated Creatinine Clearance 31.26 ml/min; Glucose 151 mg/dL (74-106); Lactic Acid 1.3 mmol/L (0.4-1.9); Sodium Level 130 mmol/L (136-145)
--- NOTE | 2020-09-13 20:21 | ED.RN ---
PT'S BP 88/58, O2% 89-90% ROOM AIR. PATIENT PLACED ON 2L O2 VIA NC. DR. ADAM DOE.
--- NOTE | 2020-09-13 20:22 | CT_ITS ---
STUDY: CTA CHEST REASON FOR EXAM: Female, 64 years old. SOB/WEAK/DIZZY. Hx of COPD, emphysema and HTN RADIATION DOSAGE (If Supplied By Facility): CTDIvol = ( 10.74 ) mGy, DLP = ( 393.35 ) mGycm TECHNIQUE: The examination was performed with the intravenous administration of IV 75mL [id number]-370. Post-processing of the angiographic images was performed, with multiplanar reformation and 3D reconstruction. Individualized dose optimization techniques were used for this CT. COMPARISON: None. FINDINGS: The heart and pericardium are normal. The aorta is normal in caliber. No aneurysm or dissection. There is no mediastinal mass or adenopathy. There is no hilar or axillary adenopathy. There is no evidence of pulmonary embolus. There is no pleural effusion. There is no pulmonary consolidation. Moderate centrilobular emphysema. Visualized abdomen is unremarkable. There is no osseous abnormality. CT/CTA Chest W/WO Contrast IMPRESSION: 1. No pulmonary embolism or arterial dissection. 2. COPD. Electronically Signed: Christin Jhaveri MD at 21:53 EST Tel , Service support ,
[2020-09-13] MEDS: 0.9% Normal Saline 1,000 ML 999 ML IV ×2 (20:32→22:05)
[2020-09-13 21:52] LABS: Mucous, Urine 0 SEEN /hpf (<or=2+)
[2020-09-13 22:11] LABS: Color, Urine Yellow (Yellow); Glucose, Dipstick Normal (Normal); Ketone-Dipstick Negative (Negative); Leukocyte Esterase-Dipstick 25 /ul (Negative); Nitrite-Dipstick Positive (Negative); Occult Blood-Urine 150 /ul (Negative); Protein-Dipstick 30 mg/dl (Negative); Urine Bilirubin Dipstick Negative (Negative); Urine Clarity Clear (Clear); Urine Urobilinogen Normal (Normal)
[2020-09-13 22:18] LABS: White Blood Cells 5-10 SEEN /hpf (0-5)
[2020-09-13 22:19] LABS: Bacteria 1+ /hpf (None Seen); Red Blood Cells-Urine 0-5 SEEN /hpf (0-5); Squamous Epithelial Cells - UA 0-5 SEEN /hpf (5-10)
--- NOTE | 2020-09-13 22:38 | HP.PCM_ITS ---
Problem List (1) Hypertension Status: Chronic (2) COPD (chronic obstructive pulmonary disease) Status: Chronic (3) PTSD (post-traumatic stress disorder) Status: Chronic (4) Sepsis Status: Acute (5) UTI (urinary tract infection) Status: Acute (6) COPD exacerbation Status: Chronic History of Present Illness Date of Admission: 09/13/20 Chief Complaint: light headedness The patient is a 64 year old F with a significant history of PTSD; and COPD who presents to the emergency department with a 2-week history of lightheadedness. Associated with her symptoms is shortness of breath and fatigue. Patient has been on two of steroids with the last steroid prescribed for a 28days taper. Reportedly she saw Dr. Adkins her PCP and was told that she has lung infection. She has completed a course of antibiotics. At the emergency department her Covid PCR was negative. Past Medical History Past Medical History (Chronic Problems): Chronic Problems Hypertension (Chronic) COPD (chronic obstructive pulmonary disease) (Chronic) PTSD (post-traumatic stress disorder) (Chronic) COPD exacerbation (Chronic) Allergies Sulfa (Sulfonamide Antibiotics) Adverse Reaction (Verified 09/13/20 18:53) Nausea Home Medications: Ambulatory Orders Medication Instructions Recorded Albuterol Inhaler [Ventolin Hfa] 1 - 2 puff INHALATION Q4H PRN PRN 09/29/17 #1 inhaler Aripiprazole [Abilify] 15 mg PO DAILY 09/29/17 Prazosin HCl [Minipress] 1 mg PO DAILY 09/29/17 Sertraline HCl [Zoloft] 100 mg PO DAILY 09/29/17 busPIRone [Buspar] 1 mg PO Q6H 09/13/20 Surgical History: - - Multiple D&Cs; ; hysterectomy Smoking Status: Former smoker - She quit smoking cigarettes about 3 weeks ago. - *Family History Maternal History Items: Cancer Paternal History Items: Heart Disease, - - Clotting disorder Review of Systems Constitutional: Reports: Weakness, Fatigue. Denies: Chills, Fever, Weight Change HEENT: Denies: Head Aches, Sinus Congestion, Sinus Drainage Cardiovascular: Denies: Chest Pain, Palpitations Respiratory: Reports: Shortness of Breath. Denies: Cough, Shortness of breath at rest, Sputum production Gastrointestinal: Denies: Abdominal Pain, Nausea, Vomiting Genitourinary: Denies: Dysuria Musculoskeletal: Denies: Joint Pain, Joint Tenderness Skin: Denies: Rash, Wounds Neurological: Denies: Numbness, Tingling, Focal weakness Psychiatric: Denies: Anxiety, Depression, Homicidal Ideations, Suicidal Ideations Hematologic/ Lymphatic: Denies: Easy Bruising, Easy Bleeding VTE Information - Inpt Only VTE Present on Admission: No VTE Mechan Device Prophylaxis: None VTE Pharm Prophylaxis ordered?: Yes Patient Problems: Active and Suspected Problems Sepsis (Acute) UTI (urinary tract infection) (Acute) - Physical Exam Vitals/I&O's: Vital Signs Temp Pulse Resp BP Pulse Ox 98.0 F 78 16 103/59 L 96 09/13/20 22:08 09/13/20 22:08 09/13/20 22:08 09/13/20 22:08 09/13/20 22:08 Oxygen Flow Rate (L/min) 2 Oxygen Delivery Method Nasal Cannula Weight: 79.379 kg Body Mass Index (BMI) 32.0 Intake and Output for Last 24 Hours 09/11/20 09/12/20 09/13/20 23:59 23:59 23:59 Intake Total 1000 / 1000 Balance 1000 / 1000 General: Alert, Oriented x3, Cooperative HEENT: Atraumatic, PERRLA, EOMI, Normocephalic Neck: Supple, No JVD, Negative Carotid Bruits Lungs: Rhonchi, Wheezes Cardiovascular: Regular rate, Normal S1, Normal S2, No murmurs Abdomen: Bowel Sounds Present, Soft, Non Tender Extremities: No edema, Capillary Refill Less than 3 Seconds Skin: No rashes, No breakdown Musculoskeletal: No Tenderness to Palpation of Joints or Extremities Neurological: Cranial nerves II-XII grossly intact Psych/Mental Status: Normal Affect, Appropriate Laboratory Results 09/13/20 19:20: COVID-19 ([facility]) Not Detected 09/13/20 19:25: WBC 21.9 H, RBC 5.91 H, Hgb 16.2 H, Hct 47.8 H, MCV 80.9 L, MCH 27.4, MCHC 33.9, RDW Std Deviation 47.6 H, RDW Coeff of Ronny 17.2 H, Plt Count 323, MPV 8.2, Immature Gran % (Auto) 1.900 H, Neut % (Auto) 92.5 H, Lymph % (Auto) 2.1 L, [place] % (Auto) 3.0, Eos % (Auto) 0.1, Baso % (Auto) 0.4, Absolute Neuts (auto) 20.3 H, Absolute Lymphs (auto) 0.46 L, Nucleated RBC % 0 09/13/20 19:25: D-Dimer Quant (PE/DVT) 1.44 H* 09/13/20 19:25: Sodium 130 L, Potassium 4.0, Chloride 99, Carbon Dioxide 24.0, Anion Gap 7, BUN 28 H, Creatinine 1.40 H, Estim Creat Clear Calc 31.26, Est GFR (MDRD) Af Amer 48 L, Est GFR (MDRD) Non-Af 40 L, BUN/Creatinine Ratio 20.0, Glucose 151 H, Calcium 9.5, Troponin I < 0.015 09/13/20 19:25: Lactic Acid 1.3 09/13/20 21:45: Urine Color Yellow, Urine Clarity Clear, Urine pH 5.0, Ur Specific [place] 1.010, Urine Protein 30 H, Urine Glucose (UA) Normal, Urine Ketones Negative, Urine Occult Blood 150 H, Urine Nitrite Positive H, Urine Bilirubin Negative, Urine Urobilinogen Normal, Ur Leukocyte Esterase 25 H, Urine RBC 0-5 SEEN, Urine WBC 5-10 SEEN, Ur Squamous Epith Cells 0-5 SEEN, Urine Bacteria 1+, Urine Mucus 0 SEEN Current Medications Ceftriaxone Sodium (Rocephin) 1 gm in 50 mls @ 100 mls/hr IV X1 ONE Stop: 09/13/20 22:50 Assessment/Plan All Active Problems Sepsis (Acute) UTI (urinary tract infection) (Acute) The patient is a 64 year old F with a significant history of PTSD; COPD who presents emergency department with a 2-week history of lightheadedness; shortness of breath and fatigue; and found to have hypotension; leukocytosis and abnormal urinalysis as well as elevation of creatinine above her baseline. Severe sepsis. White count on presentation was 21.9. But this could secondary to demargination from steroid use. Also noted to have bandemia with immature granulocyte of 1.9%.D-dimer was positive but follow-up chest CT a did not show any pulmonary embolism or acute dissection. Likewise chest x-ray did not show any acute findings. Patient initially with blood pressure of 111/69 but later found to have hypotension requiring normal saline bolus. Review of medical department labs showed abnormal urinalysis. Although patient's urinalysis is abnormal patient denies urinary symptoms. With hypotension will treat as severe sepsis. Received ceftriaxone emergency department. Ceftriaxone continued. Urine culture and blood culture was obtained emergency department follow. Lactic acid is 1.3. Blood culture urine culture was obtained in the emergency department; follow. Acute cystitis Treatment as an severe sepsis. Shortness of breath and lightheadedness We will get an echocardiogram. FADUMO On presentation was 1.40 baseline creatinine is less than 1. BUN over creatinine is 20. Received IV fluid bolus at emergency department. Continue patient on gentle IV hydration. Trend BMP. Hyponatremia Sodium of 130 likely secondary to hypovolemia. IV hydration as above Trend BMP. COPD Patient with moderate rhonchi and wheezes. Unclear whether she is in the exacerbation. On home prednisone. Will start patient on prednisone 40 mg daily. See DuoNeb at emergency department. Will start patient on scheduled DuoNeb. As needed albuterol continued. DVT prophylaxis Subcutaneous Lovenox Inpatient E&M: [id number] Init Hosp L3
[2020-09-13] MEDS: Ceftriaxone 1 GM/50 ML BAG IV (22:45)
--- NOTE | 2020-09-13 23:38 | ECHOD_ITS ---
Version 2 Reason For Study: DYSPNEA/SOB Procedure This was a 2D Doppler, Color Flow transthoracic echocardiogram. The study was technically difficult. PT was uncomfortable and SOB. Exam performed portable in patient room. Left Ventricle Normal LV size. Left ventricular systolic function is normal. The estimated ejection fraction is 60 %. Stage 2 diastolic dysfunction. No regional wall motion abnormalities noted. Right Ventricle Normal RV size. Normal systolic function. Atria Normal left atrium. Normal right atrium. Mitral Valve Normal mitral valve. Tricuspid Valve Normal tricuspid valve. Aortic Valve Trisinus/trileaflet aortic valve. Mild (1+) aortic valve insufficiency. Great Vessels Normal aortic root. The pulmonary artery is normal size. Normal inferior vena cava. Pericardium/Pleural No pericardial effusion. MMode/2D Measurements & Calculations LVIDd: 4.7 cm IVSd: 0.99 cm Ao root diam: 3.2 cm LVIDs: 3.1 cm LVPWd: 0.87 cm RVDd: 2.7 cm FS: 33.8 % LAV(MOD-bp): 36.0 ml LA A4 area: 13.2 cm2 LA dimension(2D): 3.4 cm LAV(MOD-bp) Indexed: 20.0 ml/m2 LAV(MOD-sp2): 38.1 ml LAV(MOD-sp4): 33.6 ml RA A4 area: 12.6 cm2 Time Measurements MV dec time: 0.19 sec Doppler Measurements & Calculations MV E max josé miguel: 102.6 cm/sec Lat Peak E' José Miguel: 9.1 cm/sec Med Peak E' José Miguel: 10.4 cm/sec MV A max josé miguel: 79.4 cm/sec E/E' lat: 11.2 E/E' med: 9.8 MV E/A: 1.3 Ao V2 max: 165.6 cm/sec AI max josé miguel: 368.6 cm/sec LV V1 max: 122.8 cm/sec Ao max P.0 mmHg AI max P.3 mmHg LV V1 max P.0 mmHg Ao V2 mean: 113.2 cm/sec AI dec slope: 201.6 cm/sec2 LV V1 mean P.8 mmHg Ao mean P.8 mmHg AI P1/2t: 535.4 msec LV V1 mean: 92.9 cm/sec Ao V2 VTI: 28.4 cm LV V1 VTI: 24.2 cm PA V2 max: 95.7 cm/sec Interpretation Summary Normal LV size. Left ventricular systolic function is normal. The estimated ejection fraction is 60 %. Mild (1+) aortic valve insufficiency. Stage 2 diastolic dysfunction. Ordering Physician: Chang De Souza Referring Physician: Octaviano Adkins Performed By: Gwendolyn Holt, RDCS, RVT
--- NOTE | 2020-09-13 23:55 | PCS.PANDOC ---
PANDEMIC DOCUMENTATION INITIATED: Date: 09/13/20 Time: 23:55
[2020-09-14] VITALS (16 sets, daily range): BP systolic 98–143; BP diastolic 54–71; PULSE 69–103; RESP 16–22; TEMP 36.5–38.1; O2SAT 91–98; BMI 30.9
[2020-09-14] MEDS: 0.9% Normal Saline 1,000 ML 100 ML IV ×3 (00:20→20:36)
[2020-09-14] MEDS: busPIRone 5 MG Tablet 10 MG PO ×3 (05:00→17:28)
[2020-09-14] MEDS: Ipratropium/Albuterol Sulfate 3 ML AMPUL.NEB INHALATION ×3 (07:11→20:01)
[2020-09-14 07:34] LABS: Absolute Lymphocyte Count 0.66 X10^3/uL (0.83-4.51); Absolute Neutrophil Count 15.2 X10^3/uL (2.0-7.7); Basophil# 0.02 X10^3/uL; Basophil% 0.1 % (0-1); Eosinophil# 0.01 X10^3/uL; Eosinophils% 0.1 % (0-5); Hemoglobin 14.6 g/dL (12.0-15.0); Lymphocyte # 0.66 X10^3/ul (4.0); Lymphocyte % 3.9 % (19-41); Mean Corp Hgb Conc 31.7 g/dL (32-36); Mean Corpuscular Hgb 26.4 pg (27.0-32.0); Mean Corpuscular Volume 83.3 fL (81-99); Mean Platelet Vol. 8.2 fl (6.2-12.0); Monocyte# 0.98 X10^3/uL; Monocyte% 5.7 % (0-10); NRBC Flagged by Analyzer 0 % (0-5); Neutrophil # 15.24 X10^3/uL (2.7-7.7); Neutrophil % 89.1 % (47-70); Platelet Count 271 K/mm3 (150-450); RBC Distribution Width CV 16.6 % (11.6-14.6); RBC Distribution Width SD 50.5 fl (35.1-43.9); Red Blood Count 5.52 M/mm3 (4.2-5.4); White Blood Count 17.1 K/mm3 (4.4-11.0)
[2020-09-14 07:54] LABS: Anion Gap 6 (5-15); BUN 20 mg/dL (7-18); BUN/Creat Ratio 16.8 RATIO (10-20); Calcium,Total 8.4 mg/dL (8.5-10.1); Chloride 104 mmol/L (98-107); Creatinine, Serum 1.19 mg/dL (0.55-1.02); EST Glomerular Filtration Rate 48 mL/min (>60); Est Glom Filt Rate - Afr Amer 58 mL/min (>60); Estimated Creatinine Clearance 36.78 ml/min; Glucose 102 mg/dL (74-106); Potassium 4.6 mmol/L (3.5-5.1); Sodium Level 136 mmol/L (136-145)
[2020-09-14] MEDS: Acetaminophen 325 MG Tablet 650 MG PO (07:55)
[2020-09-14] MEDS: predniSONE 20 MG Tablet 40 MG PO (07:56)
[2020-09-14] MEDS: Sertraline 100 MG Tablet PO (10:35)
[2020-09-14] MEDS: Doxazosin 1 MG Tablet PO (10:35)
[2020-09-14] MEDS: Enoxaparin 40 MG/0.4 ML Syringe SC (10:35)
[2020-09-14] MEDS: ARIPiprazole 10 MG Tablet 15 MG PO (10:35)
[2020-09-14] MEDS: Ceftriaxone 1 GM/50 ML BAG IV ×2 (10:43→21:22)
--- NOTE | 2020-09-14 13:00 | PN_ITS ---
<[facility] ATTENDANT - Last Filed: 09/14/20 13:17> Patient Problems: Active and Suspected Problems Sepsis (Acute) UTI (urinary tract infection) (Acute) Subjective: Patient seen and examined. Reports improvement in fever, chills. Denies urinary symptoms. States shortness of breath has improved. - Physical Exam Vitals/I&O's: Vital Signs Temp Pulse Resp BP Pulse Ox 98.6 F 80 21 H 102/64 96 09/14/20 10:35 09/14/20 11:28 09/14/20 11:28 09/14/20 10:36 09/14/20 11:28 Oxygen Flow Rate (L/min) 2 Oxygen Delivery Method Nasal Cannula Weight: 169 lb 1.513 oz Body Mass Index (BMI) 30.9 Intake and Output for Last 24 Hours 09/12/20 09/13/20 09/14/20 23:59 23:59 23:59 Intake Total 2049 1036.67 / 1036.67 Balance 2049 1036.67 / 1036.67 General: Alert, Oriented x3, Cooperative HEENT: Atraumatic, PERRLA, EOMI, Normocephalic Neck: Supple, No JVD, Negative Carotid Bruits Lungs: Clear to auscultation, Diminished Cardiovascular: Regular Rhythm, No murmurs, Tachycardic Abdomen: Bowel Sounds Present, Soft, Non Tender Extremities: No clubbing, No cyanosis, No edema, Capillary Refill Less than 3 Seconds Skin: No rashes, No breakdown Musculoskeletal: No Tenderness to Palpation of Joints or Extremities Neurological: Cranial nerves II-XII grossly intact, Neuro grossly intact Psych/Mental Status: Normal Affect, Appropriate Microbiology Past 72 Hours 09/13/20 19:25 Blood Culture (Wb) - Anticubital Left Blood Culture - Preliminary Laboratory Results 09/13/20 19:20: COVID-19 ([facility]) Not Detected 09/13/20 19:25: WBC 21.9 H, RBC 5.91 H, Hgb 16.2 H, Hct 47.8 H, MCV 80.9 L, MCH 27.4, MCHC 33.9, RDW Std Deviation 47.6 H, RDW Coeff of Ronny 17.2 H, Plt Count 323, MPV 8.2, Immature Gran % (Auto) 1.900 H, Neut % (Auto) 92.5 H, Lymph % (Auto) 2.1 L, [place] % (Auto) 3.0, Eos % (Auto) 0.1, Baso % (Auto) 0.4, Absolute Neuts (auto) 20.3 H, Absolute Lymphs (auto) 0.46 L, Nucleated RBC % 0 09/13/20 19:25: D-Dimer Quant (PE/DVT) 1.44 H* 09/13/20 19:25: Sodium 130 L, Potassium 4.0, Chloride 99, Carbon Dioxide 24.0, Anion Gap 7, BUN 28 H, Creatinine 1.40 H, Estim Creat Clear Calc 31.26, Est GFR (MDRD) Af Amer 48 L, Est GFR (MDRD) Non-Af 40 L, BUN/Creatinine Ratio 20.0, Glucose 151 H, Calcium 9.5, Troponin I < 0.015 09/13/20 19:25: Lactic Acid 1.3 09/13/20 21:45: Urine Color Yellow, Urine Clarity Clear, Urine pH 5.0, Ur Specific [place] 1.010, Urine Protein 30 H, Urine Glucose (UA) Normal, Urine Ketones Negative, Urine Occult Blood 150 H, Urine Nitrite Positive H, Urine Bilirubin Negative, Urine Urobilinogen Normal, Ur Leukocyte Esterase 25 H, Urine RBC 0-5 SEEN, Urine WBC 5-10 SEEN, Ur Squamous Epith Cells 0-5 SEEN, Urine Bacteria 1+, Urine Mucus 0 SEEN 09/14/20 07:15: WBC 17.1 H, RBC 5.52 H, Hgb 14.6, Hct 46.0, MCV 83.3, MCH 26.4 L , MCHC 31.7 L D, RDW Std Deviation 50.5 H, RDW Coeff of Ronny 16.6 H, Plt Count 271, MPV 8.2, Immature Gran % (Auto) 1.100 H, Neut % (Auto) 89.1 H, Lymph % (Auto) 3.9 L, [place] % (Auto) 5.7, Eos % (Auto) 0.1, Baso % (Auto) 0.1, Absolute Neuts (auto) 15.2 H, Absolute Lymphs (auto) 0.66 L, Nucleated RBC % 0 09/14/20 07:15: Sodium 136, Potassium 4.6, Chloride 104, Carbon Dioxide 26.0, Anion Gap 6, BUN 20 H, Creatinine 1.19 H, Estim Creat Clear Calc 36.78, Est GFR (MDRD) Af Amer 58 L, Est GFR (MDRD) Non-Af 48 L, BUN/Creatinine Ratio 16.8, Glucose 102, Calcium 8.4 L Current Medications Acetaminophen (Acetaminophen 325 Mg Tablet) 650 mg PO Q6H PRN PRN PRN Reason: Pain Score 1-10/Temp > 100.7 F Last Admin: 09/14/20 07:55 Dose: 650 mg Documented by: Albuterol/Ipratropium (Ipratropium/Albuterol Sulfate 3 Ml Ampul.Neb) 3 ml INHALATION Q6HWA.RT [facility] Last Admin: 09/14/20 11:28 Dose: 3 ml Documented by: Aripiprazole (Aripiprazole 10 Mg Tablet) 15 mg PO DAILY [facility] Last Admin: 09/14/20 10:35 Dose: 15 mg Documented by: Buspirone HCl (Buspirone 5 Mg Tablet) 10 mg PO Q6 [facility] Last Admin: 09/14/20 05:00 Dose: 10 mg Documented by: Doxazosin Mesylate (Doxazosin 1 Mg Tablet) 1 mg PO DAILY [facility] Last Admin: 09/14/20 10:35 Dose: 1 mg Documented by: Enoxaparin Sodium (Enoxaparin 40 Mg/0.4 Ml Syringe) 40 mg SC DAILY [facility] Last Admin: 09/14/20 10:35 Dose: 40 mg Documented by: Sodium Chloride () 250 mls @ 15 mls/hr IV .[id number] PRN PRN Reason: Saline Flush Sodium Chloride () 250 mls @ 15 mls/hr IV .[id number] PRN PRN Reason: Additional IVPB Infusion Sodium Chloride () 1,000 mls @ 100 mls/hr IV .Q10H [facility] Last Infusion: 09/14/20 11:13 Dose: 100 mls/hr Documented by: Ceftriaxone Sodium (Rocephin) 1 gm in 50 mls @ 100 mls/hr IV Q12 [facility] Last Infusion: 09/14/20 11:13 Dose: Infused Documented by: Melatonin (Melatonin 3 Mg Tablet) 3 mg PO QHS PRN PRN PRN Reason: INSOMNIA Ondansetron HCl (Ondansetron 4 Mg/2 Ml Vial) 4 mg IV Q8H PRN PRN PRN Reason: NAUSEA/VOMITING Prednisone (Prednisone 20 Mg Tablet) 40 mg PO DAILY@0800 [facility] Last Admin: 09/14/20 07:56 Dose: 40 mg Documented by: Senna/Docusate Sodium (Senna/Docusate Sodium 1 Tablet) 2 tablet PO BID PRN PRN PRN Reason: Constipation Sertraline HCl (Sertraline 100 Mg Tablet) 100 mg PO DAILY [facility] Last Admin: 09/14/20 10:35 Dose: 100 mg Documented by: Sodium Chloride (0.9% Saline Lock 10 Ml Syringe) 10 - 40 ml IV UD PRN PRN Reason: SALINE FLUSH Medical Necessity - Tobacco Use Smoking Status: Former smoker Assessment/Plan All Active Problems Sepsis (Acute) UTI (urinary tract infection) (Acute) 1. Severe sepsis secondary to acute cystitis with associated GNR bacteremia-IV Rocephin. Urine culture pending. 1 out of 2 blood cultures growing GNR. Leukocytosis improving. Fever improved. Follow final cultures. 2. Acute kidney injury-improved with IV fluids, trend BMP. 3. Hypovolemic hyponatremia-resolved with IV fluids. 4. COPD with mild exacerbation-on prednisone 40 mg daily. Albuterol DuoNeb aerosols. Patient has not been documented to be hypoxic however on 2 L nasal cannula. Continue supplemental oxygen to maintain O2 at or above 90%, wean as tolerated. Ambulatory pulse ox prior to discharge. Echocardiogram ordered as well for further evaluation of ongoing shortness of breath. 5. Anxiety/depression/PTSD-on Abilify, BuSpar, Zoloft. 6. Hypertension-on prazosin. DVT prophylaxis-Lovenox subcu This patient was seen by CHRISSIE Valdovinos under the supervision of Dr. Cobb. <Saad Cobb - Last Filed: 09/14/20 13:26> - Physical Exam Vitals/I&O's: Vital Signs Temp Pulse Resp BP Pulse Ox 98.6 F 80 21 H 102/64 96 09/14/20 10:35 09/14/20 11:28 09/14/20 11:28 09/14/20 10:36 09/14/20 11:28 Oxygen Flow Rate (L/min) 2 Oxygen Delivery Method Nasal Cannula Weight: 76.7 kg Body Mass Index (BMI) 30.9 Intake and Output for Last 24 Hours 09/12/20 09/13/20 09/14/20 23:59 23:59 23:59 Intake Total 2049 1036.67 / 1036.67 Balance 2049 1036.67 / 1036.67 Microbiology Past 72 Hours 09/13/20 19:25 Blood Culture (Wb) - Anticubital Left Blood Culture - Preliminary Laboratory Results 09/13/20 19:20: COVID-19 ([facility]) Not Detected 09/13/20 19:25: WBC 21.9 H, RBC 5.91 H, Hgb 16.2 H, Hct 47.8 H, MCV 80.9 L, MCH 27.4, MCHC 33.9, RDW Std Deviation 47.6 H, RDW Coeff of Ronny 17.2 H, Plt Count 323, MPV 8.2, Immature Gran % (Auto) 1.900 H, Neut % (Auto) 92.5 H, Lymph % (Auto) 2.1 L, [place] % (Auto) 3.0, Eos % (Auto) 0.1, Baso % (Auto) 0.4, Absolute Neuts (auto) 20.3 H, Absolute Lymphs (auto) 0.46 L, Nucleated RBC % 0 09/13/20 19:25: D-Dimer Quant (PE/DVT) 1.44 H* 09/13/20 19:25: Sodium 130 L, Potassium 4.0, Chloride 99, Carbon Dioxide 24.0, Anion Gap 7, BUN 28 H, Creatinine 1.40 H, Estim Creat Clear Calc 31.26, Est GFR (MDRD) Af Amer 48 L, Est GFR (MDRD) Non-Af 40 L, BUN/Creatinine Ratio 20.0, Glucose 151 H, Calcium 9.5, Troponin I < 0.015 09/13/20 19:25: Lactic Acid 1.3 09/13/20 21:45: Urine Color Yellow, Urine Clarity Clear, Urine pH 5.0, Ur Specific [place] 1.010, Urine Protein 30 H, Urine Glucose (UA) Normal, Urine Ketones Negative, Urine Occult Blood 150 H, Urine Nitrite Positive H, Urine Bilirubin Negative, Urine Urobilinogen Normal, Ur Leukocyte Esterase 25 H, Urine RBC 0-5 SEEN, Urine WBC 5-10 SEEN, Ur Squamous Epith Cells 0-5 SEEN, Urine Bacteria 1+, Urine Mucus 0 SEEN 09/14/20 07:15: WBC 17.1 H, RBC 5.52 H, Hgb 14.6, Hct 46.0, MCV 83.3, MCH 26.4 L , MCHC 31.7 L D, RDW Std Deviation 50.5 H, RDW Coeff of Ronny 16.6 H, Plt Count 271, MPV 8.2, Immature Gran % (Auto) 1.100 H, Neut % (Auto) 89.1 H, Lymph % (Auto) 3.9 L, [place] % (Auto) 5.7, Eos % (Auto) 0.1, Baso % (Auto) 0.1, Absolute Neuts (auto) 15.2 H, Absolute Lymphs (auto) 0.66 L, Nucleated RBC % 0 09/14/20 07:15: Sodium 136, Potassium 4.6, Chloride 104, Carbon Dioxide 26.0, Anion Gap 6, BUN 20 H, Creatinine 1.19 H, Estim Creat Clear Calc 36.78, Est GFR (MDRD) Af Amer 58 L, Est GFR (MDRD) Non-Af 48 L, BUN/Creatinine Ratio 16.8, Glucose 102, Calcium 8.4 L Current Medications Acetaminophen (Acetaminophen 325 Mg Tablet) 650 mg PO Q6H PRN PRN PRN Reason: Pain Score 1-10/Temp > 100.7 F Last Admin: 09/14/20 07:55 Dose: 650 mg Documented by: Albuterol/Ipratropium (Ipratropium/Albuterol Sulfate 3 Ml Ampul.Neb) 3 ml INHALATION Q6HWA.RT [facility] Last Admin: 09/14/20 11:28 Dose: 3 ml Documented by: Aripiprazole (Aripiprazole 10 Mg Tablet) 15 mg PO DAILY [facility] Last Admin: 09/14/20 10:35 Dose: 15 mg Documented by: Buspirone HCl (Buspirone 5 Mg Tablet) 10 mg PO Q6 [facility] Last Admin: 09/14/20 05:00 Dose: 10 mg Documented by: Doxazosin Mesylate (Doxazosin 1 Mg Tablet) 1 mg PO DAILY [facility] Last Admin: 09/14/20 10:35 Dose: 1 mg Documented by: Enoxaparin Sodium (Enoxaparin 40 Mg/0.4 Ml Syringe) 40 mg SC DAILY [facility] Last Admin: 09/14/20 10:35 Dose: 40 mg Documented by: Sodium Chloride () 250 mls @ 15 mls/hr IV .[id number] PRN PRN Reason: Saline Flush Sodium Chloride () 250 mls @ 15 mls/hr IV .[id number] PRN PRN Reason: Additional IVPB Infusion Sodium Chloride () 1,000 mls @ 100 mls/hr IV .Q10H [facility] Last Infusion: 09/14/20 11:13 Dose: 100 mls/hr Documented by: Ceftriaxone Sodium (Rocephin) 1 gm in 50 mls @ 100 mls/hr IV Q12 [facility] Last Infusion: 09/14/20 11:13 Dose: Infused Documented by: Melatonin (Melatonin 3 Mg Tablet) 3 mg PO QHS PRN PRN PRN Reason: INSOMNIA Ondansetron HCl (Ondansetron 4 Mg/2 Ml Vial) 4 mg IV Q8H PRN PRN PRN Reason: NAUSEA/VOMITING Prednisone (Prednisone 20 Mg Tablet) 40 mg PO DAILY@0800 [facility] Last Admin: 09/14/20 07:56 Dose: 40 mg Documented by: Senna/Docusate Sodium (Senna/Docusate Sodium 1 Tablet) 2 tablet PO BID PRN PRN PRN Reason: Constipation Sertraline HCl (Sertraline 100 Mg Tablet) 100 mg PO DAILY [facility] Last Admin: 09/14/20 10:35 Dose: 100 mg Documented by: Sodium Chloride (0.9% Saline Lock 10 Ml Syringe) 10 - 40 ml IV UD PRN PRN Reason: SALINE FLUSH Assessment/Plan This patient was seen in conjunction with CHRISSIE Valdovinos . I have independently interviewed and examined the patient and reviewed pertinent historical, laboratory, and other data. Please refer to CHRISSIE Valdovinos note for details of this patient's presentation, findings, and recommendations. I have reviewed CHRISSIE Valdovinos note and concur with documented findings. In brief, patient is a 64-year-old lady admitted with progressive generalized weakness. An assessment of severe sepsis secondary to acute cystitis made admitted to a monitored bed for further management. Blood cultures obtained on admission so far positive for gram-negative rods final identification and sensitivities pending Physical Examination: GENERAL: cooperative HEENT: Atraumatic; EYES; Anicteric, Normal Conjunctiva NECK; supple, normal thyroid, RESPIRATORY: Diminished to auscultation CARDIOVASCULAR: Regular S1 S2, GI: soft, normoactive bowel sounds, : No Renal angle tenderness; EXTREMITIES: No edema, no clubbing, MUSCULOSKELETAL: no muscle waisting NEURO: Awake; no lateralizing signs. SKIN: No Rash PSYCH; Flat affect Assessment: 1. Severe sepsis 2. Acute cystitis 3. Gram-negative bacteremia 4. Acute kidney injury 5. Hypovolemic hyponatremia 6. COPD 7. Depression with anxiety 8. PTSD 10. Essential hypertension 11. DVT prophylaxis Recommendations: 1. I have discussed the results of my overview and impressions with the patient 2. Options for management were reviewed Inpatient E&M: [id number] [facility] Hosp L3
[2020-09-14] MEDS: Albuterol 2.5 MG/3 ML VIAL.NEB. INHALATION (13:58)
[2020-09-15] VITALS (12 sets, daily range): BP systolic 118–138; BP diastolic 72–83; PULSE 77–93; RESP 15–20; TEMP 36.2–36.6; O2SAT 94–98
[2020-09-15] MEDS: busPIRone 5 MG Tablet 10 MG PO ×5 (00:06→23:46)
[2020-09-15] MEDS: 0.9% Normal Saline 1,000 ML 100 ML IV (06:07)
[2020-09-15 06:39] LABS: Hematocrit 38.3 % (37-47); Hemoglobin 12.8 g/dL (12.0-15.0); Mean Corp Hgb Conc 33.4 g/dL (32-36); Mean Corpuscular Hgb 27.2 pg (27.0-32.0); Mean Corpuscular Volume 81.5 fL (81-99); Mean Platelet Vol. 8.3 fl (6.2-12.0); Platelet Count 263 K/mm3 (150-450); RBC Distribution Width CV 16.2 % (11.6-14.6); RBC Distribution Width SD 48.2 fl (35.1-43.9); White Blood Count 14.1 K/mm3 (4.4-11.0)
[2020-09-15 07:00] LABS: BUN 16 mg/dL (7-18); Creatinine, Serum 0.69 mg/dL (0.55-1.02); Estimated Creatinine Clearance 43.77 ml/min; Glucose 87 mg/dL (74-106)
[2020-09-15 07:01] LABS: Anion Gap 4 (5-15); BUN/Creat Ratio 23.2 RATIO (10-20); Calcium,Total 8.1 mg/dL (8.5-10.1); Chloride 106 mmol/L (98-107); EST Glomerular Filtration Rate 90 mL/min (>60); Est Glom Filt Rate - Afr Amer 109 mL/min (>60); Potassium 3.6 mmol/L (3.5-5.1); Sodium Level 136 mmol/L (136-145)
[2020-09-15] MEDS: Ipratropium/Albuterol Sulfate 3 ML AMPUL.NEB INHALATION ×2 (07:06→19:13)
--- NOTE | 2020-09-15 08:26 | PCM.PROGNOTE ---
Patient Problems: Active and Suspected Problems Sepsis (Acute) UTI (urinary tract infection) (Acute) Subjective: Chief complaint: Follow-up after admission for sepsis secondary to acute cystitis and bacteremia. Patient seen and examined. No acute events overnight. Today, she denies any significant complaints. Denied fever or chills. Denied urinary symptoms. She is afebrile, blood pressure and heart rate are stable, pulse ox is 95% on 2 L. - Physical Exam Vitals/I&O's: Vital Signs Temp Pulse Resp BP Pulse Ox 97.8 F 86 15 130/79 H 94 09/15/20 03:15 09/15/20 07:06 09/15/20 07:06 09/15/20 03:15 09/15/20 07:06 Oxygen Flow Rate (L/min) 2 Oxygen Delivery Method Nasal Cannula Weight: 169 lb 1.513 oz Body Mass Index (BMI) 30.9 Intake and Output for Last 24 Hours 09/13/20 09/14/20 09/15/20 23:59 23:59 23:59 Intake Total 2049 2865.00 / 3115.00 1120 / 1120 Balance 2049 2865.00 / 3115.00 1120 / 1120 General: Alert, Oriented x3, Cooperative, No apparent distress HEENT: Atraumatic, PERRLA, EOMI, Normocephalic Oral: Moist Mucosa, No Gingival or Mucosal Lesions/ Ulcerations Neck: Supple, No JVD, Negative Carotid Bruits, Trachea Midline, Thyroid Normal Size and Texture Lungs: Clear to auscultation, Normal air movement, No rhonchi, No wheeze, No rales, Diminished Cardiovascular: Regular rate, Regular Rhythm, Normal S1, Normal S2, PMI Normal Abdomen: Bowel Sounds Present, Soft, Non Tender, Non-Distended, No Hepato-splenomegaly Extremities: No clubbing, No cyanosis, No edema Skin: No rashes, No breakdown Lymphatic: No Cervical, Supraclavicular, or Inguinal Adenopathy Neurological: Cranial nerves II-XII grossly intact, Motor Exam 5/5 strength throughout Psych/Mental Status: Normal Affect, Appropriate, Alert and oriented to time, place, person, mood and affect Microbiology Past 72 Hours 09/13/20 19:25 Blood Culture (Wb) - Anticubital Left Blood Culture - Preliminary Gram negative nehemiah Laboratory Results 09/15/20 06:20: WBC 14.1 H, RBC 4.70, Hgb 12.8, Hct 38.3, MCV 81.5, MCH 27.2, MCHC 33.4 D, RDW Std Deviation 48.2 H, RDW Coeff of Ronny 16.2 H, Plt Count 263, MPV 8.3 09/15/20 06:20: Sodium 136, Potassium 3.6, Chloride 106, Carbon Dioxide 26.0, Anion Gap 4 L, BUN 16, Creatinine 0.69, Estim Creat Clear Calc 43.77, Est GFR (MDRD) Af Amer 109, Est GFR (MDRD) Non-Af 90, BUN/Creatinine Ratio 23.2 H, Glucose 87, Calcium 8.1 L Microbiology 09/13/20 19:25 Blood Culture (Wb) - Anticubital Left Blood Culture - Preliminary Gram negative nehemiah Current Medications Acetaminophen (Acetaminophen 325 Mg Tablet) 650 mg PO Q6H PRN PRN PRN Reason: Pain Score 1-10/Temp > 100.7 F Last Admin: 09/14/20 07:55 Dose: 650 mg Documented by: Albuterol Sulfate (Albuterol 2.5 Mg/3 Ml Vial.Neb.) 2.5 mg INHALATION Q2H PRN PRN PRN Reason: SOB &/OR WHEEZING Last Admin: 09/14/20 13:58 Dose: 2.5 mg Documented by: Albuterol/Ipratropium (Ipratropium/Albuterol Sulfate 3 Ml Ampul.Neb) 3 ml INHALATION Q6HWA.RT REPLACED BY [facility] Last Admin: 09/15/20 07:06 Dose: 3 ml Documented by: Aripiprazole (Aripiprazole 10 Mg Tablet) 15 mg PO DAILY REPLACED BY [facility] Last Admin: 09/14/20 10:35 Dose: 15 mg Documented by: Buspirone HCl (Buspirone 5 Mg Tablet) 10 mg PO Q6 REPLACED BY [facility] Last Admin: 09/15/20 06:04 Dose: 10 mg Documented by: Doxazosin Mesylate (Doxazosin 1 Mg Tablet) 1 mg PO DAILY REPLACED BY [facility] Last Admin: 09/14/20 10:35 Dose: 1 mg Documented by: Enoxaparin Sodium (Enoxaparin 40 Mg/0.4 Ml Syringe) 40 mg SC DAILY REPLACED BY [facility] Last Admin: 09/14/20 10:35 Dose: 40 mg Documented by: Sodium Chloride () 250 mls @ 15 mls/hr IV .[id number] PRN PRN Reason: Saline Flush Sodium Chloride () 250 mls @ 15 mls/hr IV .[id number] PRN PRN Reason: Additional IVPB Infusion Ceftriaxone Sodium (Rocephin) 1 gm in 50 mls @ 100 mls/hr IV Q12 REPLACED BY [facility] Last Infusion: 09/14/20 22:36 Dose: Infused Documented by: Melatonin (Melatonin 3 Mg Tablet) 3 mg PO QHS PRN PRN PRN Reason: INSOMNIA Ondansetron HCl (Ondansetron 4 Mg/2 Ml Vial) 4 mg IV Q8H PRN PRN PRN Reason: NAUSEA/VOMITING Prednisone (Prednisone 20 Mg Tablet) 40 mg PO DAILY@0800 REPLACED BY [facility] Last Admin: 09/14/20 07:56 Dose: 40 mg Documented by: Senna/Docusate Sodium (Senna/Docusate Sodium 1 Tablet) 2 tablet PO BID PRN PRN PRN Reason: Constipation Sertraline HCl (Sertraline 100 Mg Tablet) 100 mg PO DAILY REPLACED BY [facility] Last Admin: 09/14/20 10:35 Dose: 100 mg Documented by: Sodium Chloride (0.9% Saline Lock 10 Ml Syringe) 10 - 40 ml IV UD PRN PRN Reason: SALINE FLUSH Medical Necessity - Tobacco Use Smoking Status: Former smoker Assessment/Plan All Active Problems Sepsis (Acute) UTI (urinary tract infection) (Acute) This is a 64 years old female patient presented to the emergency room because of weakness, dizziness and sweats, found to have acute cystitis with severe sepsis and also found to have gram-negative bacteremia and acute kidney injury. #1 acute cystitis/severe sepsis: She is on IV Rocephin. Her vitals has been stable, afebrile overnight. WBC is trending down. Blood culture revealed gram-negative rods, final is pending. Urine cultures pending. Plan to continue same treatment. #2 gram-negative bacteremia: Probable source is the UTI. She is on IV Rocephin as above. Blood culture reviewed. Plan for repeat blood culture today. #3 acute kidney injury/hyponatremia: Due to infection and sepsis. Baseline kidney function is normal. She has been on IV fluids. Admission creatinine was 1.4, it is 0.69 today, improved. Sodium is back to normal. #4 mild COPD exacerbation: She is on p.o. prednisone, DuoNeb every 6 hours and albuterol as needed. She is feeling better, she is on 2 L of oxygen. Plan to continue same treatment, wean off oxygen as tolerated. #5 hypertension: Blood pressure stable, continue Cardura. #6 anxiety/depression/PTSD: Stable, continue Abilify, BuSpar and Zoloft. #7 DVT prophylaxis: Subcu Lovenox. This note was generated with [employer] dictation software. It may contain incorrect words, spelling, and punctuation that were not noted in checking the note before signing. Inpatient E&M: [id number] Subs Hosp L2
[2020-09-15] MEDS: Ceftriaxone 1 GM/50 ML BAG IV ×2 (10:13→21:07)
[2020-09-15] MEDS: Doxazosin 1 MG Tablet PO (10:16)
[2020-09-15] MEDS: ARIPiprazole 10 MG Tablet 15 MG PO (10:16)
[2020-09-15] MEDS: predniSONE 20 MG Tablet 40 MG PO (10:16)
[2020-09-15] MEDS: Sertraline 100 MG Tablet PO (10:16)
[2020-09-15] MEDS: Enoxaparin 40 MG/0.4 ML Syringe SC (10:18)
--- NOTE | 2020-09-15 10:47 | CASEMGMT ---
SYDNI VALDIVIA assessment: Face to Face with patient for initial transition planning/care coordination assessment. SYDNI VALDIVIA introduced self and role at [facility], pt voices understanding and consents to assessment at this time. Pt is lying in bed in no distress at this time. Pt is A/Ox4 at this time and answers all questions appropriately at this time. Care providers, pharmacy, and demographics verified at this time. Presentation: SOB, weakness, dizziness, currently being treated for 'a lung infection' by PCP Admitting dx: Severe sepsis PCP: Jed Specialists: Pt states no current specialists. Preferred [facility]acy: [facility] Insurance: [employer] Prescription Benefit: [employer] Living Will/HPOA: Pt states does not have LW/HPOA and declines AD info at this time. Pt states I already have all that at home, I just need to do it. LNOK: Kayleen Maguire, friend Living Arrangements: Pt states lives alone in 1 story apartment and states no concerns at home at this time. Pt states is independent with ADL's. Transportation: Pt states her friend, Kayleen, drives and states no transportation concerns at this time. DME/HHC: Pt states has grab bars and a shower chair and states no need for any further DME at this time. Pt states no hx of HHC or SNF in the past. Pt states no concerns with going home at time of discharge. Pt states is disabled. Pt states quit smoking cigarettes about 3 weeks ago and does not drink ETOH. Pt states no further concerns/needs at this time. CM to follow PT/OT evals, home oxygen need, and for any further discharge planning/needs. Advised pt to ask for CM if any further questions/concerns/needs arise, voices understanding. Pt Goal: Home Plan: Home [place] SYDNI VALDIVIA
[2020-09-15] MEDS: 0.9% Saline Lock 10 ML Syringe IV (21:08)
[2020-09-16] VITALS (8 sets, daily range): BP systolic 127–141; BP diastolic 86–89; PULSE 65–84; RESP 16–19; TEMP 36.4–36.8; O2SAT 92–95
[2020-09-16] MEDS: busPIRone 5 MG Tablet 10 MG PO (05:06)
[2020-09-16 06:38] LABS: Absolute Lymphocyte Count 2.13 X10^3/uL (0.83-4.51); Absolute Neutrophil Count 9.4 X10^3/uL (2.0-7.7); Basophil# 0.04 X10^3/uL; Basophil% 0.3 % (0-1); Eosinophil# 0.15 X10^3/uL; Eosinophils% 1.2 % (0-5); Hematocrit 40.9 % (37-47); Hemoglobin 13.6 g/dL (12.0-15.0); Lymphocyte # 2.13 X10^3/ul (4.0); Lymphocyte % 16.7 % (19-41); Mean Corp Hgb Conc 33.3 g/dL (32-36); Mean Corpuscular Hgb 26.8 pg (27.0-32.0); Mean Corpuscular Volume 80.7 fL (81-99); Mean Platelet Vol. 8.1 fl (6.2-12.0); Monocyte# 0.83 X10^3/uL; Monocyte% 6.5 % (0-10); NRBC Flagged by Analyzer 0 % (0-5); Neutrophil # 9.42 X10^3/uL (2.7-7.7); Neutrophil % 73.8 % (47-70); Platelet Count 310 K/mm3 (150-450); RBC Distribution Width CV 16.2 % (11.6-14.6); RBC Distribution Width SD 47.4 fl (35.1-43.9); Red Blood Count 5.07 M/mm3 (4.2-5.4); White Blood Count 12.8 K/mm3 (4.4-11.0)
[2020-09-16] MEDS: Ipratropium/Albuterol Sulfate 3 ML AMPUL.NEB INHALATION (07:10)
[2020-09-16] MEDS: Doxazosin 1 MG Tablet PO (10:03)
[2020-09-16] MEDS: ARIPiprazole 10 MG Tablet 15 MG PO (10:03)
[2020-09-16] MEDS: Enoxaparin 40 MG/0.4 ML Syringe SC (10:03)
[2020-09-16] MEDS: Sertraline 100 MG Tablet PO (10:03)
[2020-09-16] MEDS: predniSONE 20 MG Tablet 40 MG PO (10:03)
[2020-09-16] MEDS: Ceftriaxone 1 GM/50 ML BAG IV (10:07)
[2020-09-16] MEDS: 0.9% Saline Lock 10 ML Syringe IV (10:10)
--- NOTE | 2020-09-16 11:07 | DCINST_ITS ---
- Discharge Diagnoses Current Active Problems: Current Active and Chronic Problems Hypertension (Chronic) COPD (chronic obstructive pulmonary disease) (Chronic) PTSD (post-traumatic stress disorder) (Chronic) Sepsis (Acute) UTI (urinary tract infection) (Acute) COPD exacerbation (Chronic) You will use the following diet at home:: Regular Your food should be the consistency of: Regular Discharge Activity: Return to Normal Activity Weight Bearing Status: Weight bearing as tolerated Call your doctor if you observe: Fever of 101 or Higher, Shortness of breath, Dizziness, Fainting spells, Chest pain, Increased palpitations (irregular heartbeat), Uncontrolled pain Allergies/Adverse Reactions: Allergies Sulfa (Sulfonamide Antibiotics) Adverse Reaction (Verified 09/13/20 18:53) Nausea Medications to take at Discharge Albuterol Inhaler [Ventolin Hfa] 1 - 2 puff INHALATION Q4H PRN PRN #1 inhaler 09/29/17 Aripiprazole [Abilify] 15 mg PO DAILY 09/29/17 Prazosin HCl [Minipress] 1 mg PO DAILY 09/29/17 Sertraline HCl [Zoloft] 100 mg PO DAILY 09/29/17 busPIRone [Buspar] 1 mg PO Q6H 09/13/20 Cephalexin [Keflex] 500 mg PO Q8 #21 cap 09/16/20 Prednisone 30 mg PO DAILY #18 tab 09/16/20 The following prescriptions were given: Cephalexin [Keflex] 500 mg PO Q8 #21 cap Transmission Status: Pending to [facility] Prednisone 30 mg PO DAILY #18 tab Transmission Status: Pending to [facility] Primary Care Physician: Octaviano Adkins MD [Primary Care Provider] - Please follow up with your Primary Care Physician in: 1 week. Test Results: Test results from this visit will be discussed in further detail at your follow-up appointment, if applicable. Please Follow Up With: Octaviano Adkins MD
--- NOTE | 2020-09-16 11:22 | CASEMGMT ---
This RN CM to room to discuss discharge plan with pt at this time. Pt is up in room ad bert at this time and states no need for any further therapy at this time. Pt does request list of [facility] PCP's as she would like someone associated with [facility] at this time. Pt provided with list of [facility][1] PCP's per request at this time. Pt voices no further questions/concerns/needs at this time. [place] SYDNI CM
--- NOTE | 2020-09-16 11:24 | DS.PCM_ITS ---
Discharge Date and Diagnosis - Problem List Patient Problems: Active and Suspected Problems Sepsis (Acute) UTI (urinary tract infection) (Acute) Date of Admission: 09/13/20 Date of Discharge: 09/16/20 - Primary Discharge Diagnosis Acute Problems: Active Problems #1 E. coli acute cystitis. #2 severe sepsis. #3 E. coli bacteremia. #4 acute kidney injury/hyponatremia. #5 mild COPD exacerbation. - Secondary Discharge Diagnosis Chronic Problems: Chronic Problems Hypertension (Chronic) COPD (chronic obstructive pulmonary disease) (Chronic) PTSD (post-traumatic stress disorder) (Chronic) COPD exacerbation (Chronic) Hospital Course and Treatment Imaging Results: Clinical Impression(s) from Imaging Studies Chest X-Ray 09/13/20 19:50 IMPRESSION: No acute findings. Electronically Signed: Christin Jhaveri MD at 20:26 EST Tel , Service support , Chest CTA 09/13/20 20:22 IMPRESSION: 1. No pulmonary embolism or arterial dissection. 2. COPD. Electronically Signed: Christin Jhaveri MD at 21:53 EST Tel , Service support , Operations: None Procedures: None Summary of Care Provided: Patient seen and examined on the day of discharge and appeared to be stable to be discharged home. She felt significantly better, has been off oxygen, no more shortness of breath or cough. She has been afebrile, vital signs are stable. This is a 64 years old female patient presented to the emergency room because of weakness, dizziness and sweats, found to have acute cystitis with severe sepsis and also found to have E. coli bacteremia, mild COPD exacerbation and acute kidney injury. #1 E. coli acute cystitis/severe sepsis: Treated with IV Rocephin. She did have significant leukocytosis, was tachycardic and tachypneic and had spikes of low-grade fever as well. She was treated with IV Rocephin and IV fluids. WBC significantly dropped down almost back to normal. Patient remained afebrile for more than 24 hours. Urine culture revealed presumptive E. coli, was pansensitive. 1 bottle of blood culture revealed E. coli bacteremia. Patient discharged home in a stable condition, discharged on Keflex 500 mg p.o. every 8 hours for 7 days of treatment to complete total of 10 days of treatment. #2 E. coli bacteremia: Attributed to E. coli acute cystitis. Treated with IV Rocephin as above. Blood culture revealed E. coli. Repeat blood culture was pending at the time of discharge. Patient was discharged on Keflex to complete total of 10 days of treatment as above. #3 acute kidney injury/hyponatremia: Due to infection and sepsis. Baseline kidney function is normal. Treated with IV fluids. Both serum sodium and kidney function returned back to normal. #4 mild COPD exacerbation: Treated with p.o. prednisone, DuoNeb every 6 hours and albuterol as needed. Chest x-ray showed no acute findings. Patient did require some oxygen of up to 2 L. Symptoms improved and she was able to come off oxygen. Patient discharged on short taper of prednisone and continued on her home inhalers. #5 hypertension: Blood pressure stable, continued on Cardura. #6 anxiety/depression/PTSD: Stable, continued on Abilify, BuSpar and Zoloft. Patient discharged home in a stable condition, discharged on Keflex 500 mg p.o. 3 times daily for 7 days of treatment to complete total of 10 days of treatment for acute cystitis and bacteremia, discharged on short taper of prednisone for mild COPD exacerbation, continued on her other previous home medications, recommended from with PCP in 1 week. This note was generated with [employer] dictation software. It may contain incorrect words, spelling, and punctuation that were not noted in checking the note before signing. Patient Problems: Active and Suspected Problems Sepsis (Acute) UTI (urinary tract infection) (Acute) - Physical Exam Vitals/I&O's: Vital Signs Temp Pulse Resp BP Pulse Ox 97.6 F L 84 16 127/89 H 92 09/16/20 10:09/16/20 10:09/16/20 10:09/16/20 10:09/16/20 10:01 Oxygen Flow Rate (L/min) 2 Oxygen Delivery Method Room Air Weight: 169 lb 1.513 oz Body Mass Index (BMI) 30.9 Intake and Output for Last 24 Hours 09/14/20 09/15/20 09/16/20 23:59 23:59 23:59 Intake Total 2865.00 / 3115.00 2451.67 / 2451.67 175 / 175 Balance 2865.00 / 3115.00 2451.67 / 2451.67 175 / 175 General: Alert, Oriented x3, Cooperative, No apparent distress HEENT: Atraumatic, PERRLA, EOMI, Normocephalic Oral: Moist Mucosa, No Gingival or Mucosal Lesions/ Ulcerations Neck: Supple, No JVD, Negative Carotid Bruits, Trachea Midline, Thyroid Normal Size and Texture Lungs: Clear to auscultation, Normal air movement, No rhonchi, No wheeze, No rales Cardiovascular: Regular rate, Regular Rhythm, Normal S1, Normal S2, PMI Normal Abdomen: Bowel Sounds Present, Soft, Non Tender, Non-Distended, No Hepato- splenomegaly Extremities: No clubbing, No cyanosis, No edema Skin: No rashes, No breakdown Lymphatic: No Cervical, Supraclavicular, or Inguinal Adenopathy Neurological: Cranial nerves II-XII grossly intact, Neuro grossly intact Psych/Mental Status: Normal Affect, Appropriate Microbiology Past 72 Hours 09/13/20 19:27 Blood Culture (Wb) - Left Wrist Blood Culture - Preliminary No growth in 48 hours. 09/13/20 19:25 Blood Culture (Wb) - Anticubital Left Blood Culture - Preliminary Escherichia coli 09/13/20 21:45 Urine Catheter - Catheter Urine Culture - Final Presumptive E. coli Laboratory Results 09/16/20 06:20: WBC 12.8 H, RBC 5.07, Hgb 13.6, Hct 40.9, MCV 80.7 L, MCH 26.8 L , MCHC 33.3, RDW Std Deviation 47.4 H, RDW Coeff of Ronny 16.2 H, Plt Count 310, MPV 8.1, Immature Gran % (Auto) 1.500 H, Neut % (Auto) 73.8 H, Lymph % (Auto) 16.7 L, [place] % (Auto) 6.5, Eos % (Auto) 1.2, Baso % (Auto) 0.3, Absolute Neuts (auto) 9.4 H, Absolute Lymphs (auto) 2.13, Nucleated RBC % 0 Current Medications Acetaminophen (Acetaminophen 325 Mg Tablet) 650 mg PO Q6H PRN PRN PRN Reason: Pain Score 1-10/Temp > 100.7 F Last Admin: 09/14/20 07:55 Dose: 650 mg Documented by: Albuterol Sulfate (Albuterol 2.5 Mg/3 Ml Vial.Neb.) 2.5 mg INHALATION Q2H PRN PRN PRN Reason: SOB &/OR WHEEZING Last Admin: 09/14/20 13:58 Dose: 2.5 mg Documented by: Albuterol/Ipratropium (Ipratropium/Albuterol Sulfate 3 Ml Ampul.Neb) 3 ml INHALATION Q6HWA.RT [facility] Last Admin: 09/16/20 07:10 Dose: 3 ml Documented by: Aripiprazole (Aripiprazole 10 Mg Tablet) 15 mg PO DAILY [facility] Last Admin: 09/16/20 10:03 Dose: 15 mg Documented by: Buspirone HCl (Buspirone 5 Mg Tablet) 10 mg PO Q6 [facility] Last Admin: 09/16/20 05:06 Dose: 10 mg Documented by: Doxazosin Mesylate (Doxazosin 1 Mg Tablet) 1 mg PO DAILY [facility] Last Admin: 09/16/20 10:03 Dose: 1 mg Documented by: Enoxaparin Sodium (Enoxaparin 40 Mg/0.4 Ml Syringe) 40 mg SC DAILY [facility] Last Admin: 09/16/20 10:03 Dose: 40 mg Documented by: Sodium Chloride () 250 mls @ 15 mls/hr IV .[id number] PRN PRN Reason: Saline Flush Sodium Chloride () 250 mls @ 15 mls/hr IV .[id number] PRN PRN Reason: Additional IVPB Infusion Ceftriaxone Sodium (Rocephin) 1 gm in 50 mls @ 100 mls/hr IV Q12 [facility] Last Infusion: 09/16/20 10:56 Dose: Infused Documented by: Melatonin (Melatonin 3 Mg Tablet) 3 mg PO QHS PRN PRN PRN Reason: INSOMNIA Ondansetron HCl (Ondansetron 4 Mg/2 Ml Vial) 4 mg IV Q8H PRN PRN PRN Reason: NAUSEA/VOMITING Prednisone (Prednisone 20 Mg Tablet) 40 mg PO DAILY@0800 [facility] Last Admin: 09/16/20 10:03 Dose: 40 mg Documented by: Senna/Docusate Sodium (Senna/Docusate Sodium 1 Tablet) 2 tablet PO BID PRN PRN PRN Reason: Constipation Sertraline HCl (Sertraline 100 Mg Tablet) 100 mg PO DAILY [facility] Last Admin: 09/16/20 10:03 Dose: 100 mg Documented by: Sodium Chloride (0.9% Saline Lock 10 Ml Syringe) 10 - 40 ml IV UD PRN PRN Reason: SALINE FLUSH Last Admin: 09/16/20 10:10 Dose: 10 ml Documented by: Discharge Activity: Return to Normal Activity Weight Bearing Status: Weight bearing as tolerated Call your doctor if you observe: Fever of 101 or Higher, Shortness of breath, Dizziness, Fainting spells, Chest pain, Increased palpitations (irregular heartbeat), Uncontrolled pain Home Medications: Medications to take at Discharge Albuterol Inhaler [Ventolin Hfa] 1 - 2 puff INHALATION Q4H PRN PRN #1 inhaler 09/29/17 Aripiprazole [Abilify] 15 mg PO DAILY 09/29/17 Prazosin HCl [Minipress] 1 mg PO DAILY 09/29/17 Sertraline HCl [Zoloft] 100 mg PO DAILY 09/29/17 busPIRone [Buspar] 1 mg PO Q6H 09/13/20 Cephalexin [Keflex] 500 mg PO Q8 #21 cap 09/16/20 Prednisone 30 mg PO DAILY #18 tab 09/16/20 Following Prescriptions Were Given to Patient: Cephalexin [Keflex] 500 mg PO Q8 #21 cap Transmission Status: Received by [facility] Prednisone 30 mg PO DAILY #18 tab Transmission Status: Received by [facility] Primary Care Physician: Octaviano Adkins MD [Primary Care Provider] - Please follow up with your Primary Care Physician in: 1 week. Please Follow Up With: Octaviano Adkins MD Disposition: Home Minutes spent on discharge:: 32 Patient Condition:: Stable Medical Necessity - Tobacco Use Smoking Status: Former smoker Meaningful Use Info Meaningful Use Diagnoses (Choose all that apply): None applicable Inpatient E&M: 88114 Disch Hosp
--- NOTE | 2020-09-17 13:59 | CASEMGMT ---
RN CM Discharge F/U Phone Call LACE: 12 Strata: 3 Discharge date: 09/16/20 Call date: 09/17/20 Call time: 1400 Attempted to reach pt without success at this time, message left for pt to call this RN CM back if/when able. [place] RN CM Admission dx: Severe sepsis
== END 2020-09-16 12:01 | disposition home or self-care (01) | DRG 872 ==
LOC: ED 22:24 → PCU 22:54
PROVIDERS: Nurse Practitioner Family; Admitting Provider Hospitalist; Emergency Provider Emergency Medicine; PCP Family Medicine; Visit Provider Hospitalist
DX: A41.51 Sepsis due to Escherichia coli [E. coli] (principal); R65.20 Severe sepsis without septic shock; N30.00 Acute cystitis without hematuria; N17.9 Acute kidney failure, unspecified; J44.1 Chronic obstructive pulmonary disease with (acute) exacerbation; E86.1 Hypovolemia; E87.1 Hypo-osmolality and hyponatremia; B96.20 Unspecified Escherichia coli [E. coli] as the cause of diseases classified elsewhere; Z20.822 Contact with and (suspected) exposure to COVID-19; I10 Essential (primary) hypertension; F32.9 Major depressive disorder, single episode, unspecified; F41.9 Anxiety disorder, unspecified; F43.12 Post-traumatic stress disorder, chronic; X58.XXXA Exposure to other specified factors, initial encounter; Y93.9 Activity, unspecified; Y92.9 Unspecified place or not applicable; Y99.9 Unspecified external cause status; Z79.899 Other long term (current) drug therapy; Z87.891 Personal history of nicotine dependence
CPT/HCPCS: 36415; 71045; 71275; 80048; 81001; 83605; 84484; 85025; 85027; 85379; 87040; 87077; 87086; 87088; 87186; 87635; 93005; 93306; 94640; 99285; J7030; P9612; Q9967; A4216; U0002

== ENCOUNTER → 2020-10-02 13:55 | Outpatient (CLI) | payer MEDICARE, MEDICAID, SELFPAY ==
[2020-09-23 13:32] VITALS: BMI 32.6
--- NOTE | 2020-10-02 13:57 | CT_ITS ---
STUDY: CT ABDOMEN AND PELVIS WITH CONTRAST REASON FOR EXAM: Female, 64 years old. RECURRENT UTI/E COLI SEPSIS RADIATION DOSAGE (If Supplied By Facility): CTDIvol = ( 13.05 ) mGy, DLP = ( 897.60 ) mGycm TECHNIQUE: Transaxial images were obtained from the dome of the diaphragm to the symphysis pubis with oral contrast. Oral and amp; IV Readi-CAT and amp; 100mL Isovue-300 was administered. Sagittal and coronal images were reconstructed. Individualized dose optimization techniques were used for this CT. COMPARISON: None. FINDINGS: Minimal increased linear markings are seen in the medial aspect of the right middle lobe. The visualized portions of the heart are within normal limits. Normal liver. Normal gallbladder and extrahepatic biliary system. Normal spleen. Normal pancreas. Normal bilateral adrenal glands. Normal right kidney. There is fullness of the left renal pelvis most likely representing an extrarenal pelvis. Normal visualized stomach. Normal small intestine. Normal colon. The appendix is visualized and appears normal. There is diffuse atherosclerotic calcification of the abdominal aorta, without a demonstrated aneurysm. Normal inferior vena cava. Normal retroperitoneum. The urinary bladder is empty at the time of the examination. There is absence of the uterus consistent with a prior hysterectomy. Normal abdominal wall. Normal osseous structures. CT/Abdomen/Pelvis WITH Contrast IMPRESSION: Minimal fullness of the left renal pelvis suggestive of an extrarenal pelvis Electronically Signed: Wilfred De La Cruz MD at 15:05 EST , Service support ,
--- NOTE | 2020-10-02 13:57 | US_ITS ---
STUDY: RENAL ULTRASOUND - COMPLETE REASON FOR EXAM: Female, 64 years old. Recurring uti''s TECHNIQUE: Ultrasound evaluation of the kidneys was performed with real-time and static hood-scale imaging. COMPARISON: None. FINDINGS: RIGHT KIDNEY: Normal location of the right kidney, which is normal in size. The right kidney measures 10.2 cm x 5.4 cm x 4.2 cm. There is a normal cortex of the right kidney. The renal cortex measures 1.2 cm. There is no right renal mass or cyst. There are no right renal calculi. There is no right hydronephrosis. DISTAL RIGHT URETER: There is non-visualization of the distal right ureter. There is no demonstrated right ureterovesical junction calculus. There is a visualized right ureteral jet. LEFT KIDNEY: Normal location of the left kidney, which is normal in size. The left kidney measures 10 cm x 3.9 cm x 3.5 cm. There is a normal cortex of the left kidney. The renal cortex measures 1.0 cm. There is no left renal mass or cyst. There are no left renal calculi. There is an extra-renal pelvis of the left kidney. There is no distention of the renal calyces. DISTAL LEFT URETER: There is non-visualization of the distal left ureter. There is no demonstrated left ureterovesical junction calculus. There is a visualized left ureteral jet. BLADDER: The distended urinary bladder has a volume of 65 ml. Low level echoes are seen along the dependent portion of the urinary bladder. US/Kidney and Bladder IMPRESSION: Normal ultrasound of the kidneys and urinary bladder. Electronically Signed: Wilfred De La Cruz MD at 15:02 EST , Service support ,
== END ==
PROVIDERS: PCP Internal Medicine; Referring Provider Internal Medicine; Visit Provider Internal Medicine
DX: A41.51 Sepsis due to Escherichia coli [E. coli] (principal); N39.0 Urinary tract infection, site not specified
CPT/HCPCS: 74177; 76770; Q9967

== ENCOUNTER 2020-11-04 16:09 | Outpatient (RCR) | payer MEDICARE, MEDICAID, SELFPAY ==
[2020-10-17 08:12] VITALS: BMI 32.6
[2020-11-04] MEDS: COVID-19 VACC, MRNA(PFIZER)/PF 30 MCG/0.3 ML SYRINGE IM (09:29)
[2020-11-25] MEDS: COVID-19 VACC, MRNA(PFIZER)/PF 30 MCG/0.3 ML SYRINGE IM (09:10)
== END 2021-02-03 23:59 ==
LOC: IMMUN 16:09
PROVIDERS: PCP Internal Medicine; Visit Provider Family Medicine
DX: Z23 Encounter for immunization (principal)
CPT/HCPCS: 0001A; 0002A; 91300

== ENCOUNTER 2021-01-06 09:25 | Observation (INO) | payer MEDICARE, MEDICAID, SELFPAY ==
[2021-01-05 15:00] VITALS: BMI 32.6
[2021-01-06] VITALS (14 sets, daily range): BP systolic 117–137; BP diastolic 71–81; PULSE 67–87; RESP 17–24; TEMP 36.4–37.1; O2SAT 89–98; BMI 33.6; BMI 30.4
--- NOTE | 2021-01-06 09:39 | EKG12_ITS ---
Test Reason : SOB Blood Pressure : / mmHG Vent. Rate : 075 BPM Atrial Rate : 075 BPM P-R Int : 148 ms QRS Dur : 084 ms QT Int : 402 ms P-R-T Axes : 061 050 020 degrees QTc Int : 448 ms Sinus rhythm with occasional Premature ventricular complexes Low voltage QRS (Limb Leads) Confirmed by MARYANNE POWERS, NURIA ([id number]), scientific publications editor KINGS SAAVEDRA ([id number]) on 01/08/2021 1:54:47 PM Referred By: DUNIA Confirmed By:NURIA MADDEN MD
--- NOTE | 2021-01-06 09:41 | EX.ED.DYSGE1 ---
HPI History of Present Illness Chief Complaint: Shortness of Breath Informant: patient Narrative Narrative: 65-year-old female with a history of COPD presents to the emergency department for the evaluation of shortness of breath. She states that she went saw her primary care physician yesterday Dr. Velazquez. An EKG and chest x-ray was ordered and that is why she came to the hospital today. However she notes that she is significantly more dyspneic today than yesterday.The patient states that about 1 month ago her shortness of breath worsened. She notes it particularly worse with exertion. When that happens she gets a tightness around her chest. Her symptoms dissipate with rest. She has cut back significantly on her smoking. No reported fevers. She notes a cough but no sputum production.She denies any prior history of stress test or heart catheterization. [facility] Medical History Anxiety and depression Arthritis COPD (chronic obstructive pulmonary disease) Cough due to bronchospasm Dyspnea on exertion GERD (gastroesophageal reflux disease) Hypertension Kidney stones PTSD (post-traumatic stress disorder) Home Medications albuterol sulfate 1 - 2 puff INHALATION Q4H PRN PRN #1 inhaler 09/29/17 [Rx Last Taken Unknown] aripiprazole 15 mg PO DAILY 09/29/17 [History Last Taken Unknown] prazosin 1 mg PO DAILY 09/29/17 [History Last Taken Unknown] buspirone 1 mg PO Q6H 09/13/20 [History Last Taken Unknown] lisinopril 20 mg-hydrochlorothiazide 25 mg tablet 1 tab PO DAILY 09/23/20 [History Last Taken Unknown] omeprazole 20 mg tablet,delayed release 20 mg PO DAILY 09/23/20 [History Last Taken Unknown] ascorbate calcium (vitamin C) 500 mg tablet 500 mg PO DAILY #1 tab 10/14/20 [Rx Last Taken Unknown] sertraline 100 mg tablet 200 mg PO DAILY tab 10/23/20 [History Last Taken Unknown] levofloxacin 500 mg tablet 500 mg PO DAILY #7 tab 01/05/21 [Rx Last Taken Unknown] prednisone 10 mg tablet 10 mg PO DAILY #21 tab 01/05/21 [Rx Last Taken Unknown] fluticasone propion-salmeterol [Advair HFA] 2 puff INHALATION BID 01/06/21 [History Last Taken Unknown] Allergy/AdvReac Type Severity Reaction Status Date / Time Sulfa (Sulfonamide AdvReac Nausea Verified 01/06/21 09:28 Antibiotics) Family History Mother Diabetes Hypertension Breast cancer Father Heart disease Hypertension Myocardial infarction, Onset Age: 46 Surgical History History of History of D&C History of hand surgery History of hysterectomy Social History Smoking Status: Former smoker quit date: 01/03/21 Tobacco: How many years used: 36 alcohol intake: never substance use type: does not use what type of physical activity do you participate in: none ROS ROS ED Constitutional Constitutional ED: Denies chills or weight loss Eyes Eyes: Denies change in vision or diplopia ENT ENT ED: Denies ear pain, rhinorrhea or sore throat Cardiovascular Cardiovascular: Reports chest pain; Denies orthopnea, palpitations or racing heartbeat Respiratory/Chest Respiratory/Chest: Reports cough, dyspnea and dyspnea on exertion; Denies orthopnea Gastrointestinal Gastrointestinal: Denies abdominal pain, diarrhea, nausea or vomiting Genitourinary Genitourinary ED: Denies dysuria, hematuria or urinary frequency Musculoskeletal Musculoskeletal: Denies arthralgias or myalgias Integumentary Denies abscess or rash Neurologic Neurologic: Denies headache(s) or weakness Psychiatric Psychiatric: Denies anxiety, depression, suicidal ideation or suicidal thoughts Endocrine Endocrinology: Denies polydipsia, polyphagia or polyuria Allergic/Immunologic Allergic/Immunologic ED: Denies mouth swelling, tongue swelling or urticaria EXAM Physical Exam Const Vital Signs: 01/06/21 09:26 01/06/21 09:47 01/06/21 09:48 Temperature 98.3 F Temperature Source Temporal Pulse Rate 74 Respiratory Rate 24 H Respiratory Effort Respiratory Depth Respiratory Pattern Blood Pressure 137/81 H Blood Pressure Mean 99 Pulse Ox 91 89 97 Oxygen Delivery Method Room Air Room Air Nasal Cannula Oxygen Flow Rate (L/min) 2 01/06/21 10:08 01/06/21 10:37 01/06/21 10:41 Temperature 98.3 F Temperature Source Temporal Pulse Rate 68 68 Respiratory Rate 21 H 19 H Respiratory Effort Short of Breath Respiratory Depth Normal Respiratory Pattern Normal Blood Pressure 128/73 H Blood Pressure Mean 91 Pulse Ox 96 91 Oxygen Delivery Method Nasal Cannula Nasal Cannula Nasal Cannula Oxygen Flow Rate (L/min) 1 2 2 01/06/21 10:55 01/06/21 11:46 Temperature Temperature Source Pulse Rate 70 87 Respiratory Rate 22 H 20 H Respiratory Effort Short of Breath Labored Respiratory Depth Respiratory Pattern Blood Pressure Blood Pressure Mean Pulse Ox 92 Oxygen Delivery Method Nasal Cannula Oxygen Flow Rate (L/min) 1 Positive well nourished and well developed General Appearance ED: well developed HEENT Reports normocephalic, head/scalp atraumatic and moist mucous membranes Eyes PERRL and EOMs intact bilaterally Neck no lymphadenopathy, supple and no JVD Resp Resp Narrative: Patient is tachypneic. Ambulating from the doorway to the bed the patient is 86% on room air. There is scattered rhonchi and wheeze. She feels better leaning forward. Cardio regular rate, regular rhythm and no murmurs GI normal to inspection, nondistended, normoactive bowel sounds and non-tender Palpation: soft Back/Spine no CVA tenderness and normal ROM Extremity normal to inspection General Extremety ED: Negative for edema General Extremity: Negative for edema Neuro oriented x3 and CN's II-XII intact bilaterally Sensorium / Orientation: alert Motor Exam: strength 5/5 throughout Psych mental status grossly normal Mood & Affect: Negative for depressed or tearful Skin no rashes or lesions noted and no wounds MDM MDM MDM Narrative Medical decision making narrative: Patient received breathing treatments and Solu-Medrol. Chest x-ray shows no definitive infiltrate CTA does not demonstrate infiltrate or pulmonary embolism. Troponin negative. Patient now has wheezing extensively while I listen to her. Though she is resting much more comfortably. I think the patient could benefit from inpatient stay and optimization of medical therapy. Lab Data Attestation: I reviewed the patient's lab results. Labs: Laboratory Results - last 24 hr 01/06/21 01/06/21 01/06/21 10:15 10:15 10:15 WBC 9.6 RBC 6.32 H Hgb 17.0 H Hct 51.8 H MCV 82.0 MCH 26.9 L MCHC 32.8 RDW Std Deviation 47.2 H RDW Coeff of Ronny 16.7 H Plt Count 309 MPV 8.0 Immature Gran % (Auto) 0.600 Neut % (Auto) 81.1 H Lymph % (Auto) 9.7 L [place] % (Auto) 5.8 Eos % (Auto) 2.4 Baso % (Auto) 0.4 Absolute Neuts (auto) 7.8 H Absolute Lymphs (auto) 0.93 Nucleated RBC % 0 PT 11.9 INR 0.9 APTT 26.1 D-Dimer Quant (PE/DVT) 1.20 H* Sodium 132 L Potassium 3.5 Chloride 98 Carbon Dioxide 31.0 Anion Gap 3 L BUN 12 Creatinine 0.71 Estim Creat Clear Calc 47.14 Est GFR (MDRD) Af Amer 105 Est GFR (MDRD) Non-Af 87 BUN/Creatinine Ratio 16.8 Glucose 111 H Lactic Acid Calcium 9.7 Total Bilirubin 0.30 AST 10 L ALT 14 Alkaline Phosphatase 124 H Troponin I < 0.015 B-Natriuretic Peptide Total Protein 7.5 Albumin 3.4 Globulin 4.1 Albumin/Globulin Ratio 0.8 L 01/06/21 01/06/21 10:15 10:15 WBC RBC Hgb Hct MCV MCH MCHC RDW Std Deviation RDW Coeff of Ronny Plt Count MPV Immature Gran % (Auto) Neut % (Auto) Lymph % (Auto) [place] % (Auto) Eos % (Auto) Baso % (Auto) Absolute Neuts (auto) Absolute Lymphs (auto) Nucleated RBC % PT INR APTT D-Dimer Quant (PE/DVT) Sodium Potassium Chloride Carbon Dioxide Anion Gap BUN Creatinine Estim Creat Clear Calc Est GFR (MDRD) Af Amer Est GFR (MDRD) Non-Af BUN/Creatinine Ratio Glucose Lactic Acid 1.0 Calcium Total Bilirubin AST ALT Alkaline Phosphatase Troponin I B-Natriuretic Peptide 13.5 Total Protein Albumin Globulin Albumin/Globulin Ratio Radiography Diagnostic Testing: Radiology Impression Chest X-Ray 01/06/21 10:45 IMPRESSION: Mild increased markings at the lung bases suggest some mild basilar scarring. There has been no change. Electronically Signed: Wilfred De La Cruz MD at 10:59 EDT , Service support , Chest CTA 01/06/21 11:35 IMPRESSION: No evidence of pulmonary embolism. Stable mild linear scarring at the lung bases. Focal area of scarring and/or atelectasis along the anterior medial aspect of the right middle lobe. Emphysematous changes. Electronically Signed: Wilfred De La Cruz MD at 11:55 EDT , Service support , EKG Initial EKG: Attestation: I personally reviewed and interpreted this EKG as follows: Comments: EKG demonstrates a sinus rhythm at a rate of 75 with PVC noted. Discharge Plan Dx/Rx/DC Orders Clinical Impression: Acute exacerbation of chronic obstructive pulmonary disease, Acute on chronic respiratory failure with hypoxemia Disposition Disposition: Acute Care Hospital [facility]
[2021-01-06] MEDS: Albuterol 2.5 MG/3 ML VIAL.NEB. INHALATION ×3 (10:04→11:44)
[2021-01-06] MEDS: Ipratropium/Albuterol Sulfate 3 ML AMPUL.NEB INHALATION ×3 (10:04→22:19)
[2021-01-06] MEDS: MethylPREDNISolone 125 MG/2 ML Vial IV (10:19)
[2021-01-06 10:29] LABS: Absolute Lymphocyte Count 0.93 X10^3/uL (0.83-4.51); Absolute Neutrophil Count 7.8 X10^3/uL (2.0-7.7); Basophil# 0.04 X10^3/uL; Basophil% 0.4 % (0-1); Eosinophil# 0.23 X10^3/uL; Eosinophils% 2.4 % (0-5); Hematocrit 51.8 % (37-47); Lymphocyte # 0.93 X10^3/ul (0.83-4.51); Lymphocyte % 9.7 % (19-41); Mean Corp Hgb Conc 32.8 g/dL (32-36); Mean Corpuscular Hgb 26.9 pg (27.0-32.0); Monocyte# 0.56 X10^3/uL; Monocyte% 5.8 % (0-10); NRBC Flagged by Analyzer 0 % (0-5); Neutrophil # 7.77 X10^3/uL (2.7-7.7); Neutrophil % 81.1 % (47-70); Platelet Count 309 K/mm3 (150-450); RBC Distribution Width CV 16.7 % (11.6-14.6); RBC Distribution Width SD 47.2 fl (35.1-43.9); Red Blood Count 6.32 M/mm3 (4.2-5.4); White Blood Count 9.6 K/mm3 (4.4-11.0)
[2021-01-06 10:36] LABS: International Normalized Ratio 0.9; Prothrombin Time (Protime)PT. 11.9 SECONDS (11.7-14.9)
[2021-01-06 10:37] LABS: Partial Thromboplast Time 26.1 Seconds (24.1-36.2)
--- NOTE | 2021-01-06 10:42 | ED.RN ---
Lab called D-Dimer of 1.20. Dr romano
--- NOTE | 2021-01-06 10:45 | RAD_ITS ---
STUDY: X-RAY CHEST REASON FOR EXAM: Female, 65 years old. Dyspnea TECHNIQUE: Single AP portable view of the chest. COMPARISON: Comparison is made with prior study dated 09/13/2020. FINDINGS: EKG electrode are seen. Mild increased markings at the lung bases more prominent on the left side suggestive of linear scarring. There is no demonstrated pleural abnormality. Normal size heart. Normal mediastinum and magui. Normal visualized pulmonary arteries. There is atherosclerotic calcification of the aortic arch with tortuosity. There are diffuse degenerative changes of the visualized thoracic spine. Normal visualized ribs, clavicles, and shoulders. There is no demonstrated abnormality of the visualized soft tissue structures of the upper abdomen. RAD/Chest 1 View (Portable) IMPRESSION: Mild increased markings at the lung bases suggest some mild basilar scarring. There has been no change. Electronically Signed: Wilfred De La Cruz MD at 10:59 EDT , Service support ,
[2021-01-06 10:47] LABS: ALB/GLOB Ratio 0.8 RATIO (0.9-2.4); AST(SGOT) 10 U/L (15-37); Alanine Aminotransfer ALT/SGPT 14 U/L (13-56); Albumin, Serum 3.4 g/dL (3.2-5.0); Alkaline Phosphatase 124 U/L (45-117); Anion Gap 3 (5-15); BUN 12 mg/dL (7-18); BUN/Creat Ratio 16.8 RATIO (10-20); Calcium,Total 9.7 mg/dL (8.5-10.1); Chloride 98 mmol/L (98-107); Creatinine, Serum 0.71 mg/dL (0.55-1.02); EST Glomerular Filtration Rate 87 mL/min (>60); Est Glom Filt Rate - Afr Amer 105 mL/min (>60); Estimated Creatinine Clearance 47.14 ml/min; Globulin 4.1 g/dL (2.2-4.2); Glucose 111 mg/dL (74-106); Potassium 3.5 mmol/L (3.5-5.1); Protein, Total 7.5 g/dL (6.4-8.2); Sodium Level 132 mmol/L (136-145)
[2021-01-06 10:48] LABS: BNP,B-Type NATRIURETIC PEPTIDE 13.5 pg/mL (0-100)
--- NOTE | 2021-01-06 11:35 | CT_ITS ---
STUDY: CTA CHEST REASON FOR EXAM: Female, 65 years old. Dyspnea high pre test probability RADIATION DOSAGE (If Supplied By Facility): CTDIvol = ( 10.52 ) mGy, DLP = ( 375.90 ) mGycm TECHNIQUE: The examination was performed with the intravenous administration of IV 100mL Isovue-370. Post-processing of the angiographic images was performed, with multiplanar reformation and 3D reconstruction. Individualized dose optimization techniques were used for this CT. COMPARISON: Comparison is made with prior study dated 09/13/2020. FINDINGS: Normal enhancement of the main pulmonary artery and right and left pulmonary arteries. Normal enhancement of the bilateral peripheral pulmonary arteries. There is no demonstrated pulmonary embolism. Normal thoracic aorta and visualized great vessels. There is no demonstrated aortic dissection. Normal heart and pericardium. Normal mediastinum. Normal hilar regions. Normal visualized trachea and bronchi. Hyperinflation Emphysematous changes with centrilobular emphysema in the upper lobes. There is a 2.8 signed by 1.5 cm linear density along the anterior medial aspect of the right middle lobe. This may represent either a focal area of scarring or atelectasis. Increased linear markings at the lung bases likely more pronounced on the left side suggestive of a bibasilar scarring. Normal pleura. Normal chest wall structures. There are degenerative changes of thoracic spine. Normal visualized upper abdomen. CT/CTA Chest W/WO Contrast IMPRESSION: No evidence of pulmonary embolism. Stable mild linear scarring at the lung bases. Focal area of scarring and/or atelectasis along the anterior medial aspect of the right middle lobe. Emphysematous changes. Electronically Signed: Wilfred De La Cruz MD at 11:55 EDT , Service support ,
--- NOTE | 2021-01-06 12:51 | PCM.HP.STD ---
[facility] - [facility] Date of Admission: 01/06/21 Chief Complaint: Progressive shortness of breath ongoing for 2-4 weeks [facility] Narrative MAX TOM, is a 65 F who presents shortness of breath ongoing for 2 weeks. Patient admits to quitting smoking a couple of days ago. She had complained of progressive shortness of breath that was ongoing for 2 to 4 weeks. Shortness of breath was worse with exertion and resolved rest. She had associated chest tightness. She admits to having a cough productive of clear sputum she had difficulty completing her activities of basic living. Patient saw her primary care doctor on 01/05/21. Intact visit she was referred to the hospital for an EKG and chest x-ray. Was having the testing done in the office, she complained of shortness of breath. He denied any fever or chills or any sick contact. She is vaccinated, received both vaccines. [facility] Medical History Anxiety and depression Arthritis COPD (chronic obstructive pulmonary disease) Cough due to bronchospasm Dyspnea on exertion GERD (gastroesophageal reflux disease) Hypertension Kidney stones PTSD (post-traumatic stress disorder) Home Medications albuterol sulfate 1 - 2 puff INHALATION Q4H PRN PRN #1 inhaler 09/29/17 [Rx Last Taken 01/05/21] prazosin 1 mg PO DAILY 09/29/17 [History Last Taken 01/05/21] buspirone 1 mg PO Q6H 09/13/20 [History Last Taken 01/05/21] lisinopril 20 mg-hydrochlorothiazide 25 mg tablet 1 tab PO DAILY 09/23/20 [History Last Taken 01/05/21] ascorbate calcium (vitamin C) 500 mg tablet 500 mg PO DAILY #1 tab 10/14/20 [Rx Last Taken 01/05/21] sertraline 100 mg tablet 200 mg PO DAILY tab 10/23/20 [History Last Taken 01/05/21] amlodipine 5 mg PO DAILY 01/06/21 [History Last Taken Unknown] aripiprazole 20 mg PO DAILY 01/06/21 [History Last Taken 01/05/21] budesonide-formoterol [Symbicort] 1 - 2 puff INHALATION DAILY 01/06/21 [History Last Taken Unknown] bupropion HCl 150 mg PO DAILY 01/06/21 [History Last Taken Unknown] esomeprazole magnesium 20 mg PO DAILY 01/06/21 [History Last Taken 01/05/21] fluticasone propion-salmeterol [Advair HFA] 2 puff INHALATION BID 01/06/21 [History Last Taken 01/05/21] prazosin 2 mg PO DAILY 01/06/21 [History Last Taken Unknown] Allergy/AdvReac Type Severity Reaction Status Date / Time Sulfa (Sulfonamide AdvReac Nausea Verified 01/06/21 09:28 Antibiotics) Family History Mother Diabetes Hypertension Breast cancer Father Heart disease Hypertension Myocardial infarction, Onset Age: 46 Surgical History History of History of D&C History of hand surgery History of hysterectomy Social History Smoking Status: Former smoker quit date: 01/03/21 Tobacco: How many years used: 36 alcohol intake: never substance use type: does not use what type of physical activity do you participate in: none ROS ROS Narrative Constitutional: Reports: Malaise, Weakness, Fatigue. Denies: Anorexia, Chills, Fever, Night Sweats, Weight Change Eyes: Denies: Blurred vision, Cataracts, Conjunctivae Inflammation, Pain, Redness, Vision Change HEENT: Denies: Difficulty Hearing, Difficulty Swallowing, Head Aches, Hearing Changes, Sinus Congestion, Sinus Drainage Cardiovascular: Denies: Chest Pain, Orthopnea, Palpitations Respiratory: admits to Cough, Shortness of breath at rest, Sputum production Gastrointestinal: Denies: Abdominal Pain, Nausea, Vomiting Genitourinary: Denies: Dysuria Musculoskeletal: Denies: Joint Pain, Joint stiffness, Joint swelling, Joint Tenderness Skin: Denies: Rash, Wounds Neurological: Denies: Numbness, Tingling, Focal weakness Vital Signs Vital Signs Vital Signs: 01/06/21 09:26 01/06/21 09:47 01/06/21 09:48 Temperature 98.3 F Temperature Source Temporal Pulse Rate 74 Respiratory Rate 24 H Respiratory Effort Respiratory Depth Respiratory Pattern Blood Pressure 137/81 H Blood Pressure Mean 99 Pulse Ox 91 89 97 Oxygen Delivery Method Room Air Room Air Nasal Cannula Oxygen Flow Rate (L/min) 2 01/06/21 10:08 01/06/21 10:37 01/06/21 10:41 Temperature 98.3 F Temperature Source Temporal Pulse Rate 68 68 Respiratory Rate 21 H 19 H Respiratory Effort Short of Breath Respiratory Depth Normal Respiratory Pattern Normal Blood Pressure 128/73 H Blood Pressure Mean 91 Pulse Ox 96 91 Oxygen Delivery Method Nasal Cannula Nasal Cannula Nasal Cannula Oxygen Flow Rate (L/min) 1 2 2 01/06/21 10:55 01/06/21 11:46 Temperature Temperature Source Pulse Rate 70 87 Respiratory Rate 22 H 20 H Respiratory Effort Short of Breath Labored Respiratory Depth Respiratory Pattern Blood Pressure Blood Pressure Mean Pulse Ox 92 Oxygen Delivery Method Nasal Cannula Oxygen Flow Rate (L/min) 1 Physical Exam Narrative Physical exam: General: Alert, Oriented x3, Cooperative, No apparent distress, Well developed, HEENT: Atraumatic Oral: Moist Mucosa Neck: Supple Lungs: Clear to auscultation Cardiovascular: HS I+II, regular, no murmurs Abdomen: Bowel Sounds Present, Soft, Non Tender Extremities: No edema Skin: No rashes, No breakdown Neurological: Grossly intact Psych/Mental Status: Appropriate Lab / Micro Data Result Diagrams: 01/06/21 10:15 01/06/21 10:15 Labs: Laboratory Results - last 24 hr 01/06/21 01/06/21 01/06/21 10:15 10:15 10:15 WBC 9.6 RBC 6.32 H Hgb 17.0 H Hct 51.8 H MCV 82.0 MCH 26.9 L MCHC 32.8 RDW Std Deviation 47.2 H RDW Coeff of Ronny 16.7 H Plt Count 309 MPV 8.0 Immature Gran % (Auto) 0.600 Neut % (Auto) 81.1 H Lymph % (Auto) 9.7 L [place] % (Auto) 5.8 Eos % (Auto) 2.4 Baso % (Auto) 0.4 Absolute Neuts (auto) 7.8 H Absolute Lymphs (auto) 0.93 Nucleated RBC % 0 PT 11.9 INR 0.9 APTT 26.1 D-Dimer Quant (PE/DVT) 1.20 H* Sodium 132 L Potassium 3.5 Chloride 98 Carbon Dioxide 31.0 Anion Gap 3 L BUN 12 Creatinine 0.71 Estim Creat Clear Calc 47.14 Est GFR (MDRD) Af Amer 105 Est GFR (MDRD) Non-Af 87 BUN/Creatinine Ratio 16.8 Glucose 111 H Lactic Acid Calcium 9.7 Total Bilirubin 0.30 AST 10 L ALT 14 Alkaline Phosphatase 124 H Troponin I < 0.015 B-Natriuretic Peptide Total Protein 7.5 Albumin 3.4 Globulin 4.1 Albumin/Globulin Ratio 0.8 L 01/06/21 01/06/21 10:15 10:15 WBC RBC Hgb Hct MCV MCH MCHC RDW Std Deviation RDW Coeff of Ronny Plt Count MPV Immature Gran % (Auto) Neut % (Auto) Lymph % (Auto) [place] % (Auto) Eos % (Auto) Baso % (Auto) Absolute Neuts (auto) Absolute Lymphs (auto) Nucleated RBC % PT INR APTT D-Dimer Quant (PE/DVT) Sodium Potassium Chloride Carbon Dioxide Anion Gap BUN Creatinine Estim Creat Clear Calc Est GFR (MDRD) Af Amer Est GFR (MDRD) Non-Af BUN/Creatinine Ratio Glucose Lactic Acid 1.0 Calcium Total Bilirubin AST ALT Alkaline Phosphatase Troponin I B-Natriuretic Peptide 13.5 Total Protein Albumin Globulin Albumin/Globulin Ratio Micro: Microbiology 01/06/21 10:22 SARS-CoV-2 Antigen (Rapid) - Final Nasal Secretion Radiology Impression Chest X-Ray 01/06/21 10:45 IMPRESSION: Mild increased markings at the lung bases suggest some mild basilar scarring. There has been no change. Electronically Signed: Wilfred De La Cruz MD at 10:59 EDT , Service support , Chest CTA 01/06/21 11:35 IMPRESSION: No evidence of pulmonary embolism. Stable mild linear scarring at the lung bases. Focal area of scarring and/or atelectasis along the anterior medial aspect of the right middle lobe. Emphysematous changes. Electronically Signed: Wilfred De La Cruz MD at 11:55 EDT , Service support , Assessment & Plan Assessment/Plan (1) Acute exacerbation of chronic obstructive pulmonary disease: (2) Hypoxia: PLAN: 1. Acute COPD exacerbation patient with underlying COPD, not on oxygen at home. Currently on 3 L of oxygen Chest x-ray and CTA of the chest showed no acute cardiopulmonary abnormality Patient has wheezes on exam Respiratory panel Breathing treatments, IV Solu-Medrol Continue to wean off oxygen 2. Rest of chronic medical conditions including hypertension, anxiety/depression/bipolar, history of recurrent UTIs all remained stable Home medications continued Visit Charges Inpatient E&M: 86525 Init Hosp L3
--- NOTE | 2021-01-06 13:21 | NURSING ---
MED SURG OBS NAUMAH COPD EXAC
[2021-01-06] MEDS: 0.9% Saline Lock 10 ML Syringe IV ×2 (16:52→21:32)
[2021-01-06] MEDS: busPIRone 5 MG Tablet 10 MG PO ×2 (19:21→23:36)
[2021-01-07] VITALS (10 sets, daily range): BP systolic 109–127; BP diastolic 69–80; PULSE 71–95; RESP 12–20; TEMP 36.6–36.8; O2SAT 93–96
[2021-01-07] MEDS: Ipratropium/Albuterol Sulfate 3 ML AMPUL.NEB INHALATION ×6 (02:42→23:40)
[2021-01-07] MEDS: busPIRone 5 MG Tablet 10 MG PO ×3 (05:33→17:54)
[2021-01-07] MEDS: 0.9% Saline Lock 10 ML Syringe IV ×2 (05:34→13:24)
[2021-01-07 05:47] LABS: Absolute Lymphocyte Count 0.48 X10^3/uL (0.83-4.51); Absolute Neutrophil Count 7.8 X10^3/uL (2.0-7.7); Basophil# 0.01 X10^3/uL; Basophil% 0.1 % (0-1); Hematocrit 50.5 % (37-47); Hemoglobin 15.9 g/dL (12.0-15.0); Lymphocyte # 0.48 X10^3/ul (0.83-4.51); Lymphocyte % 5.5 % (19-41); Mean Corp Hgb Conc 31.5 g/dL (32-36); Mean Corpuscular Volume 82.5 fL (81-99); Mean Platelet Vol. 8.2 fl (6.2-12.0); Monocyte# 0.34 X10^3/uL; Monocyte% 3.9 % (0-10); NRBC Flagged by Analyzer 0 % (0-5); Neutrophil # 7.76 X10^3/uL (2.7-7.7); Neutrophil % 89.6 % (47-70); POSITIVE DIFFERENTIAL YES; Platelet Count 298 K/mm3 (150-450); RBC Distribution Width CV 16.4 % (11.6-14.6); RBC Distribution Width SD 47.6 fl (35.1-43.9); Red Blood Count 6.12 M/mm3 (4.2-5.4); White Blood Count 8.7 K/mm3 (4.4-11.0)
[2021-01-07 05:55] LABS: Differential Indicated SCAN CRITERIA MET
[2021-01-07 06:15] LABS: ALB/GLOB Ratio 0.8 RATIO (0.9-2.4); AST(SGOT) 19 U/L (15-37); Alanine Aminotransfer ALT/SGPT 13 U/L (13-56); Albumin, Serum 3.2 g/dL (3.2-5.0); Alkaline Phosphatase 114 U/L (45-117); Anion Gap 8 (5-15); BUN 20 mg/dL (7-18); BUN/Creat Ratio 25.3 RATIO (10-20); Calcium,Total 9.1 mg/dL (8.5-10.1); Chloride 97 mmol/L (98-107); Creatinine, Serum 0.79 mg/dL (0.55-1.02); EST Glomerular Filtration Rate 77 mL/min (>60); Est Glom Filt Rate - Afr Amer 93 mL/min (>60); Estimated Creatinine Clearance 43.18 ml/min; Globulin 4.1 g/dL (2.2-4.2); Glucose 141 mg/dL (74-106); Potassium 3.9 mmol/L (3.5-5.1); Protein, Total 7.3 g/dL (6.4-8.2); Sodium Level 133 mmol/L (136-145)
[2021-01-07 06:37] LABS: Differential Comment SCANNED
[2021-01-07] MEDS: Sertraline 100 MG Tablet 200 MG PO (08:26)
[2021-01-07] MEDS: Ascorbic Acid 500 MG Tablet PO (08:26)
[2021-01-07] MEDS: Pantoprazole Sodium 20 MG Tablet PO (08:26)
[2021-01-07] MEDS: Lisinopril 20 MG Tablet PO (08:26)
[2021-01-07] MEDS: hydroCHLOROthiazide 25 MG Tablet PO (08:26)
[2021-01-07] MEDS: Doxazosin 1 MG Tablet PO (08:27)
[2021-01-07] MEDS: ARIPiprazole 5 MG Tablet 15 MG PO (08:27)
[2021-01-07] MEDS: Enoxaparin 40 MG/0.4 ML Syringe SC (08:27)
--- NOTE | 2021-01-07 11:33 | PCM.PN.HOSP ---
Subjective Subjective Patient was seen and examined. She feels improved for complaints of nasal congestion and wheezes. No fevers. No acute events overnight. Objective Data Objective Data Vital Signs: Vital Signs Temp Pulse Resp BP Pulse Ox 97.9 F 95 12 125/72 H 93 01/07/21 08:30 01/07/21 11:12 01/07/21 11:12 01/07/21 08:30 01/07/21 08:30 Oxygen Flow Rate (L/min) 3 Oxygen Delivery Method Nasal Cannula Weight: 75.5 kg Body Mass Index (BMI) 30.4 Intake & Output: Intake and Output for Last 24 Hours 01/05/21 01/06/21 01/07/21 23:59 23:59 23:59 Intake Total 500 / 500 Balance 500 / 500 Lab / Micro Data Result Diagrams: 01/07/21 05:34 01/07/21 05:34 Labs: Laboratory Results - last 24 hr 01/07/21 01/07/21 05:34 05:34 WBC 8.7 RBC 6.12 H Hgb 15.9 H Hct 50.5 H MCV 82.5 MCH 26.0 L MCHC 31.5 L RDW Std Deviation 47.6 H RDW Coeff of Ronny 16.4 H Plt Count 298 MPV 8.2 Immature Gran % (Auto) 0.900 Neut % (Auto) 89.6 H Lymph % (Auto) 5.5 L [place] % (Auto) 3.9 Eos % (Auto) 0.0 Baso % (Auto) 0.1 Absolute Neuts (auto) 7.8 H Absolute Lymphs (auto) 0.48 L Nucleated RBC % 0 Differential Comment SCANNED Sodium 133 L Potassium 3.9 Chloride 97 L Carbon Dioxide 28.0 Anion Gap 8 BUN 20 H Creatinine 0.79 Estim Creat Clear Calc 43.18 Est GFR (MDRD) Af Amer 93 Est GFR (MDRD) Non-Af 77 BUN/Creatinine Ratio 25.3 H Glucose 141 H Calcium 9.1 Total Bilirubin 0.30 AST 19 ALT 13 Alkaline Phosphatase 114 Total Protein 7.3 Albumin 3.2 Globulin 4.1 Albumin/Globulin Ratio 0.8 L Micro: Microbiology 01/06/21 14:08 Mucosa - Nasopharyngeal Respiratory Panel (PCR) - Final 01/06/21 10:22 Nasal Secretion SARS-CoV-2 Antigen (Rapid) - Final Radiography Diagnostic Testing: Radiology Impression Chest CTA 01/06/21 11:35 IMPRESSION: No evidence of pulmonary embolism. Stable mild linear scarring at the lung bases. Focal area of scarring and/or atelectasis along the anterior medial aspect of the right middle lobe. Emphysematous changes. Electronically Signed: Wilfred De La Cruz MD at 11:55 EDT , Service support , Physical Exam Narrative Physical exam: General: Alert, Oriented x3, Cooperative, appears unwell, Well developed, remains on 3 L of oxygen HEENT: Atraumatic Oral: Moist Mucosa Neck: Supple Lungs: Diminished, scattered wheezes Cardiovascular: HS I+II, regular, no murmurs Abdomen: Bowel Sounds Present, Soft, Non Tender Extremities: No edema Skin: No rashes, No breakdown Neurological: Grossly intact Psych/Mental Status: Appropriate Assessment & Plan Assessment/Plan (1) Acute exacerbation of chronic obstructive pulmonary disease: (2) Hypoxia: PLAN: 1. Acute COPD exacerbation with hypoxia, very minimal improvement Patient with underlying COPD, not on oxygen at home. Remains on 3 L of oxygen Chest x-ray and CTA of the chest showed no acute cardiopulmonary abnormality COVID-19 rapid antigen negative, Respiratory panel unremarkable Continue on breathing treatments, IV Solu-Medrol Continue to wean off oxygen 2. Rest of chronic medical conditions including hypertension, anxiety/depression/bipolar, history of recurrent UTIs all remained stable. Continue rest of home medications Visit Charges Inpatient E&M: 80464 [facility] Hosp L2
--- NOTE | 2021-01-07 11:50 | CASEMGMT ---
Addendum entered by Denis Andres 01/07/21 16:31: 1150: Discussed CCN with pt and given Rac card w/contact info. Pt voices interest in CCN and agreeable to referral. Order placed. VM left w/Chato @ CCN re: referral. Addendum entered by Denis Andres 01/07/21 16:31: 1150: [employer]OPE[employer] form explained re: Observation status for treatment of acute COPD exacerbation. Explained hospitalization will be paid per her insurance policy for Outpatient billing and condition will continue to be evaluated for Inpt necessity. Also let pt know that [facility] sends paper in the billing packet with their phone number if questions arise. Discussed Pharmacy section of LOPEZ form and self administered medication guideline. Pt verbalizes understanding and does not have further questions. Form signed, copy made and placed in chart, and original given to pt. Original Note: RN CM BOATBUILDER SUPERVISOR CM to room to meet with patient for initial transition planning/care coordination assessment. RN SHEA introduced self and role at [facility]. Pt voices understanding and consents to assessment at this time. Pt sitting up in recliner chair in no distress at this time. Pt is A/O at this time and answers all questions appropriately. Care providers, pharmacy, and demographics verified/updated at this time. PCP: Dr Bragg Specialists: none Preferred Pharmacy: [facility] Insurance: [employer] Prescription Benefit: Yes Living Will/HPOA: does not have LW or HCPOA . Interested in more information and would like to talk with SW to complete paperwork. SW, Esperanza Mitch, notified. Pt states she would like to list her friend, Kayleen, as her POA, and possibly a niece as alternative POA. LNOK: States she has a sister, but her sister has cancer and she is not doing well. Pt's only listed contact is her friend, Kayleen. Living Arrangements: Lives alone in one-story apt. No steps to enter. Independent w/ADL's and IADL's, but pt states it is getting difficult to go grocery shopping and and manage home tasks. Pt inquired about getting an aide for assistance in the home w/these tasks. She was made aware SW can come in to talk w/her re: same and she voices appreciation. Transportation: FriendKayleen DME: [facility] has the following DME: shower chair, rails/grab bars, hand held shower, medical alert button. Pt does not have home O2. Pt aware she may need O2 @ discharge. She denies need for other DME. Pt was provided with list of DME providers consistent with the patient's preferred geographic region, medical needs, and insurance network. [facility] . HHC/SNF: No history of either. Pt denies need for HHC. Pt wishes to return home and [facility] has no concerns with going home at time of discharge. CM to follow for home oxygen needs and any further discharge planning/needs. Pt voices no further concerns/needs at this time. Advised pt to ask for CM if any further questions/concerns/needs arise. Voices understanding. PLAN: Home PT/OT evals pending. CM to follow for any Home O2 needs @ discharge. SW to see for AD and info on Passport/Direction Home. Jacquelyn SENIOR RN CM
--- NOTE | 2021-01-07 15:21 | CASEMGMT ---
Social Work SW met with pt and introduced self and role of SW. Pt requesting to complete advance directives. SW assisted pt in completing Living Kevin and HCPOA naming her friend Kayleen Maguire. Copy placed in chart and original given to pt. Pt requesting assistance in the home. SW provided written information on the Passport program and explained available services through [facility]. Pt would like a referral to be made. Phone call to [facility] and referral made for Passport program. Information will be forwarded to the [facility] Program and they will contact pt directly for assessment once she returns home. Pt made aware. TAVON Martin
--- NOTE | 2021-01-07 15:27 | CHAPLAIN ---
Type of Pastoral Visit _x__ Initial Visit ___ Follow-up Visit ___ On-call Visit ___ General Patient Visit ___ Spiritual Assessment ___ Family Conference ___ Bereavement ___ Rapid Response ___ Code Blue ___ Other (describe below) Pastoral Care Referral From _x__ Patient ___ Family ___ Nurse ___ Physician ___ Archaeology Professor ___ Backup Operator ___ Other (describe below) Sacrament/Intervention _x__ Active listening ___ Anointing ___ Caodaism ___ Bereavement ___ Communion _x__ Iliana exploration ___ _x__ Life review _x__ Prayer ___ Reconciliation ___ Sacrament of Sick _x__ Supportive presence ___ Wedding ___ Other (describe below) Pastoral Comments patient seeks spiritual care support and prayer
[2021-01-08] VITALS (10 sets, daily range): BP systolic 121–137; BP diastolic 74–83; PULSE 74–91; RESP 17–22; TEMP 36.5–36.8; O2SAT 86–97
[2021-01-08] MEDS: busPIRone 5 MG Tablet 10 MG PO ×3 (00:30→12:10)
[2021-01-08] MEDS: Ipratropium/Albuterol Sulfate 3 ML AMPUL.NEB INHALATION ×3 (03:01→11:57)
[2021-01-08] MEDS: 0.9% Saline Lock 10 ML Syringe IV (06:53)
[2021-01-08] MEDS: Ascorbic Acid 500 MG Tablet PO (07:46)
[2021-01-08] MEDS: Pantoprazole Sodium 20 MG Tablet PO (09:32)
[2021-01-08] MEDS: hydroCHLOROthiazide 25 MG Tablet PO (09:32)
[2021-01-08] MEDS: Lisinopril 20 MG Tablet PO (09:32)
[2021-01-08] MEDS: ARIPiprazole 5 MG Tablet 15 MG PO (09:32)
[2021-01-08] MEDS: Doxazosin 1 MG Tablet PO (09:32)
[2021-01-08] MEDS: Sertraline 100 MG Tablet 200 MG PO (09:33)
[2021-01-08] MEDS: Enoxaparin 40 MG/0.4 ML Syringe SC (09:33)
--- NOTE | 2021-01-08 09:47 | NURSING ---
AMBULATED ON ROOM AIR - 86%, ADDED OXYGEN, SATS SLOWLY CAME UP TO 90%. SAT AT EDGE OF BED TO RECOVER & TOOK SEVERAL MINUTES TO COME UP TO 93% ON 3L/NC OXYGEN.
--- NOTE | 2021-01-08 11:10 | CASEMGMT ---
Addendum entered by Denis Andres 01/08/21 13:39: Pt inquiring about portable concentrator. SYDNI VALDIVIA informed her to f/u with PCP re: this. Original Note: SYDNI VALDIVIA NOTE: Ambulatory pulse ox has been completed. Pt qualifies for Home O2 @ 3 L/M w/exertion. Script for O2 obtained from Dr Mccallum and faxed to [facility]. TC to Aleshia @ [facility] and she was made aware pt will need O2 delivered to her room prior to discharge today. Jacquelyn SENIOR RN CM
--- NOTE | 2021-01-08 12:21 | PCM.DC ---
Discharge Instructions Diet Discharge Diet: 2000 mg Sodium Diet Activity Discharge Activity: Return to Normal Activity Follow Up Care Test Results: Test results from this visit will be discussed in further detail at your follow-up appointment, if applicable. Discharge Plan Admission Admit Date/Time: 01/06/21 12:51 Primary Reason for Your Visit: Acute COPD exacerbation Attending Provider: Salome Mccallum Primary Care Provider: Rosa Bragg Consulting Providers: Neil Durham ; Jorje Yao ; Ginetet Arreguin NP Instructions Patient Instructions: Care for COPD, COPD: Using Inhalers Additional Instructions / Restrictions: Complete your prednisone taper. Continue to keep yourself hydrated. Follow-up with your primary care doctor within 1 to 2 weeks. You have been discharged on oxygen. You are strongly advised to avoid smoking was on oxygen. Discharge Orders/Prescriptions Prescriptions: Continued lisinopril-hydrochlorothiazide 20-25 mg tablet 1 tab PO DAILY RF: 0 prazosin 1 MG capsule 1 mg PO DAILY RF: 0 albuterol sulfate 1 INHALER inhaler 1 - 2 puff INHALATION Q4H PRN PRN (Reason: Wheezing) Qty: 1 RF: 0 sertraline 100 mg tablet 200 mg PO DAILY RF: 0 buspirone 5 MG tablet 1 mg PO Q6H RF: 0 Advair HFA 115-21 mcg/actuation HFA aerosol inhaler 2 puff inhalation BID RF: 0 amlodipine 5 mg tablet 5 mg PO DAILY RF: 0 prazosin 2 mg capsule 2 mg PO DAILY RF: 0 esomeprazole magnesium 20 mg capsule,delayed release(DR/EC) 20 mg PO DAILY RF: 0 aripiprazole 20 mg tablet 20 mg PO DAILY RF: 0 bupropion HCl 150 mg tablet extended release 24 hr 150 mg PO DAILY RF: 0 budesonide-formoterol [Symbicort] 80-4.5 mcg/actuation HFA aerosol inhaler 1 - 2 puff INHALATION DAILY RF: 0 ascorbate calcium (vitamin C) 500 mg tablet 500 mg PO DAILY Qty: 1 RF: 0 Referrals / Follow Up: Rosa Bragg MD [Primary Care Provider] - Ginette Arreguin NP, PEG-C [Nurse Practitioner] - Within 2 Weeks Disposition Disposition (needs filled in before D/C Order can be placed): Home, self care
--- NOTE | 2021-01-08 13:41 | CON.PCM.CC_ITS ---
Assessment & Plan Assessment/Plan (1) Acute exacerbation of chronic obstructive pulmonary disease: (2) Hypoxia: (3) GERD (gastroesophageal reflux disease): (4) Anxiety and depression: (5) PTSD (post-traumatic stress disorder): PLAN: RECOMMENDATIONS: 1. Continue bronchodilators on discharge 2. Supplemental oxygen as indicated on discharge. Wean prednisone over the next 12 to 14 days 3. Follow-up with nurse practitioner 2 weeks after discharge 4. Education on proper use of supplemental oxygen 5. Encouraged smoking cessation. IMPRESSIONS: 1. Acute hypoxic respiratory failure secondary to presumed COPD exacerbation Patient with extensive emphysematous changes noted on CT scan of the chest. Patient also had significantly elevated hemoglobin on presentation. This is suggestive the patient may have had an oxygen requirement previously that was not recognized. Patient appears to have responded appropriately to c urrent therapy. Transition to prednisone therapy and weaning over the next 12 to 14 days would be appropriate. Patient needs to see nurse practitioner in our office in 2 weeks. Pulmonary function test, walking oximetry and possible sleep work-up will be indicated. Patient was educated on the necessity of smoking cessation and the proper use of supplemental oxygen. Patient's baseline inhalers can be used until she follows up as an outpatient. 2. Hypertension/anxiety/depression/bipolar disorder/recurrent UTIs/obesity/advanced age Complicates care, management, recovery and prognosis. Patient is currently living independently. Okay to continue with baseline medications from my perspective. HPI Consult Data Date of Consult: 01/08/21 HPI Narrative HPI Narrative: MAX TOM is a 65-year-old female who presented to [facility] on 01/06/2021 secondary to progressive shortness of breath. King smith had reportedly been seen by her PCP on the day prior to presentation and had an EKG and chest x-ray. Patient reported that she had significantly decompensated over the last 24 hours and came to the ER for evaluation. Patient had been worsening from shortness of breath standpoint for approximately a month prior to seeing her PCP. Patient stated this was worse with exertion and improved with resting. Patient had reported a tightness around her chest. Patient did have a cough but no sputum was reported. In the ER, patient was afebrile, but tachypneic at 24 breaths/min. Patient was noted to be 91% on room air. Patient required 2 L to maintain appropriate saturations. Laboratory work-up showed a leukocytosis of 9.6 with hemoglobin of 17, slightly elevated D-dimer at 1.2 and relatively normal CMP. Given elevated D-dimer, a CTA of the chest was obtained showing no acute PE. Patient was admitted to the floor for further evaluation. Over the last 3 days, patient reports that she has improved from a respiratory standpoint. The hospitalist is concerned that the patient will require close follow-up with pulmonary, so a consult was obtained. Patient states that she lives alone. Patient has not required supplemental oxygen previously. Patient does have an extensive smoking history and states I am done smoking now. Patient denies any history of PE or DVT. Patient denies ever seeing a animal doctor or having pulmonary function test previously. Review of systems otherwise negative from a constitutional, HEENT, respiratory, cardiovascular, GI, genitourinary, musculoskeletal, skin, neurologic, psychiatric and hematologic system unless stated above. [facility] Medical History Anxiety and depression Arthritis COPD (chronic obstructive pulmonary disease) Cough due to bronchospasm Dyspnea on exertion GERD (gastroesophageal reflux disease) Hypertension Kidney stones PTSD (post-traumatic stress disorder) Home Medications albuterol sulfate 1 - 2 puff INHALATION Q4H PRN PRN #1 inhaler 09/29/17 [Rx Last Taken 01/05/21] prazosin 1 mg PO DAILY 09/29/17 [History Last Taken 01/05/21] buspirone 1 mg PO Q6H 09/13/20 [History Last Taken 01/05/21] lisinopril 20 mg-hydrochlorothiazide 25 mg tablet 1 tab PO DAILY 09/23/20 [History Last Taken 01/05/21] ascorbate calcium (vitamin C) 500 mg tablet 500 mg PO DAILY #1 tab 10/14/20 [Rx Last Taken 01/05/21] sertraline 100 mg tablet 200 mg PO DAILY tab 10/23/20 [History Last Taken 01/05/21] Advair HFA 2 puff INHALATION BID 01/06/21 [History Last Taken 01/05/21] amlodipine 5 mg PO DAILY 01/06/21 [History Last Taken Unknown] aripiprazole 20 mg PO DAILY 01/06/21 [History Last Taken 01/05/21] budesonide-formoterol [Symbicort] 1 - 2 puff INHALATION DAILY 01/06/21 [History Last Taken Unknown] bupropion HCl 150 mg PO DAILY 01/06/21 [History Last Taken Unknown] esomeprazole magnesium 20 mg PO DAILY 01/06/21 [History Last Taken 01/05/21] prazosin 2 mg PO DAILY 01/06/21 [History Last Taken Unknown] prednisone 10 mg PO DAILY #30 tab 01/08/21 [Rx Last Taken Unknown] Allergy/AdvReac Type Severity Reaction Status Date / Time Sulfa (Sulfonamide AdvReac Nausea Verified 01/06/21 09:28 Antibiotics) Family History Mother Diabetes Hypertension Breast cancer Father Heart disease Hypertension Myocardial infarction, Onset Age: 46 Surgical History History of History of D&C History of hand surgery History of hysterectomy Social History Smoking Status: Former smoker quit date: 01/03/21 Tobacco: How many years used: 36 alcohol intake: never substance use type: does not use what type of physical activity do you participate in: none ROS ROS Narrative See HPI Physical Exam Const alert and oriented x3 General Appearance: cooperative HEENT normocephalic Head and Scalp: atraumatic Eyes PERRL and EOMs intact bilaterally Neck supple, no JVD and no carotid bruits Resp Effort and Inspection: able to speak in complete sentences, symmetric chest movement and audible wheezes Auscultation: wheezes expiratory wheezes and throughout; Negative for rales, rhonchi, egophony or rub present Cardio regular rate and no murmurs Rate: regular rate Heart Sounds: S1 normal and S2 normal; Negative for gallop, murmur or rub Peripheral Pulses: pulses 2+ throughout GI normal to inspection, nondistended, normoactive bowel sounds and soft to palpation Extremity normal capillary refill General Extremity: Negative for edema Skin no rashes or lesions noted Neuro CN's II-XII intact bilaterally Psych cooperative and affect normal Lab / Micro Data Result Diagrams: 01/07/21 05:34 01/07/21 05:34 Micro: Microbiology 01/06/21 10:15 Blood Culture - Preliminary Blood Culture (Wb) #2 - Left Forearm No growth in 48 hours. 01/06/21 10:32 Blood Culture - Preliminary Blood Culture (Wb) - Anticubital Right No growth in 48 hours. Charges/Coding Visit Charges Inpatient E&M: 49542 Init Hosp L2
--- NOTE | 2021-01-08 14:36 | PHA.DC.MR ---
Pharmacy Service has performed discharge medication reconciliation for this patient. Dc counseling paperwork prepared, but pt had already left by the time pharmacy came to pt's room. Medication reconciliation was completed. Home Medications albuterol sulfate 1 - 2 puff INHALATION Q4H PRN PRN #1 inhaler 09/29/17 prazosin 1 mg PO DAILY 09/29/17 buspirone 1 mg PO Q6H 09/13/20 lisinopril 20 mg-hydrochlorothiazide 25 mg tablet 1 tab PO DAILY 09/23/20 ascorbate calcium (vitamin C) 500 mg tablet 500 mg PO DAILY #1 tab 10/14/20 sertraline 100 mg tablet 200 mg PO DAILY tab 10/23/20 Advair HFA 2 puff INHALATION BID 01/06/21 amlodipine 5 mg PO DAILY 01/06/21 aripiprazole 20 mg PO DAILY 01/06/21 budesonide-formoterol [Symbicort] 1 - 2 puff INHALATION DAILY 01/06/21 bupropion HCl 150 mg PO DAILY 01/06/21 esomeprazole magnesium 20 mg PO DAILY 01/06/21 prazosin 2 mg PO DAILY 01/06/21 prednisone 10 mg PO DAILY #30 tab 01/08/21 The patient's discharge medication list was reviewed for discrepancies and discrepancies were resolved.
--- NOTE | 2021-01-08 15:13 | CASEMGMT ---
SYDNI VALDIVIA NOTE: Discharge instructions faxed to Laly Amado at [phone] at this time. Jacquelyn SENIOR RN, CM
--- NOTE | 2021-01-08 17:17 | DS.PCM_ITS ---
Providers Date of Admission: 01/06/21 Date of Discharge: 01/08/21 Primary Care Physician: Dr. Rosa Bragg MD Consultations 01/08/21 11:57 Consult: [employer] Equipment [employer] / Pulmonary Medicine Routine Consulting Provider: Pulmonary Medicine matthew [place] Reason for Consult: COPD exacerbation EMERGENT Consult: Yes MD Notified: Yes Date Notified:: 01/08/21 Time Notified: 11:58 Method of Notification: Verbal Method of Consult:: In-Person Reason For Visit: ACUTE COPD EXACERBATION Diagnosis Discharge Diagnosis (1) Acute exacerbation of chronic obstructive pulmonary disease: Status: Chronic Code(s): J44.1 - Chronic obstructive pulmonary disease with (acute) exacerbation (2) Hypoxia: Status: Acute Code(s): R09.02 - Hypoxemia (3) GERD (gastroesophageal reflux disease): Status: Chronic Code(s): K21.9 - Gastro-esophageal reflux disease without esophagitis (4) Anxiety and depression: Status: Chronic Code(s): F41.9 - Anxiety disorder, unspecified; F32.9 - Major depressive disorder, single episode, unspecified (5) PTSD (post-traumatic stress disorder): Status: Chronic Code(s): F43.10 - Post-traumatic stress disorder, unspecified Medications at Discharge Home Medications albuterol sulfate 1 - 2 puff INHALATION Q4H PRN PRN #1 inhaler 09/29/17 prazosin 1 mg PO DAILY 09/29/17 buspirone 1 mg PO Q6H 09/13/20 lisinopril 20 mg-hydrochlorothiazide 25 mg tablet 1 tab PO DAILY 09/23/20 ascorbate calcium (vitamin C) 500 mg tablet 500 mg PO DAILY #1 tab 10/14/20 sertraline 100 mg tablet 200 mg PO DAILY tab 10/23/20 Advair HFA 2 puff INHALATION BID 01/06/21 amlodipine 5 mg PO DAILY 01/06/21 aripiprazole 20 mg PO DAILY 01/06/21 budesonide-formoterol [Symbicort] 1 - 2 puff INHALATION DAILY 01/06/21 bupropion HCl 150 mg PO DAILY 01/06/21 esomeprazole magnesium 20 mg PO DAILY 01/06/21 prazosin 2 mg PO DAILY 01/06/21 prednisone 10 mg PO DAILY #30 tab 01/08/21 Hospital Course Operations None Procedures None Summary of Care Provided Minutes Spent on Discharge: 45 Hospital Course: 65-year-old female with past medical history of COPD, not on oxygen who presented with shortness of breath ongoing for more than 2 weeks. Patient was recently seen in the primary care office 2 days before admission and was recommended to have an EKG and chest x-ray. Whilst in the hospital having the testing done, patient was noted to be progressively short of breath. She was seen in the emergency room. She had received her Covid vaccines in October. Her rapid Covid antigen test was negative. Chest x-ray and CTA of the chest were negative for acute PE or infiltrates. Patient was found to be hypoxic requiring use of oxygen. She was admitted to the [facility] floor and managed as acute COPD exacerbation. Patient continued to improve. She was kept on breathing treatments, IV Solu-Medrol. Pulmonology was consulted in this admission. Patient did qualify for discharge with oxygen. She will follow up with pulmonology in the outpatient. Physical Exam Narrative General: Alert, Oriented x3, Cooperative, appears unwell, Well developed, remains on 3 L of oxygen HEENT: Atraumatic Oral: Moist Mucosa Neck: Supple Lungs: Diminished, scattered wheezes Cardiovascular: HS I+II, regular, no murmurs Abdomen: Bowel Sounds Present, Soft, Non Tender Extremities: No edema Skin: No rashes, No breakdown Neurological: Grossly intact Psych/Mental Status: Appropriate ABG / Lab / Microbiology Data Result Diagrams: 01/07/21 05:34 01/07/21 05:34 Microbiology: Microbiology 01/06/21 10:15 Blood Culture - Preliminary Blood Culture (Wb) #2 - Left Forearm No growth in 48 hours. 01/06/21 10:32 Blood Culture - Preliminary Blood Culture (Wb) - Anticubital Right No growth in 48 hours. Microbiology 01/06/21 10:15 Blood Culture (Wb) #2 - Left Forearm Blood Culture - Preliminary No growth in 48 hours. 01/06/21 10:32 Blood Culture (Wb) - Anticubital Right Blood Culture - Preliminary No growth in 48 hours. 01/06/21 14:08 Mucosa - Nasopharyngeal Respiratory Panel (PCR) - Final 01/06/21 10:22 Nasal Secretion SARS-CoV-2 Antigen (Rapid) - Final D/C Instructions Discharge Diet: 2000 mg Sodium Diet Discharge Activity: Return to Normal Activity Meaningful Use Info Meaningful Use Diagnoses (Choose all that apply): None applicable Discharge Plan Admission Admit Date/Time: 01/06/21 12:51 Primary Reason for Your Visit: Acute COPD exacerbation Attending Provider: Salome Mccallum Primary Care Provider: Rosa Bragg Consulting Providers: Neil Durham ; Jorje Yao ; Ginette Arreguin NP Instructions Patient Instructions: Care for COPD, COPD: Using Inhalers Additional Instructions / Restrictions: Complete your prednisone taper. Continue to keep yourself hydrated. Follow-up with your primary care doctor within 1 to 2 weeks. You have been discharged on oxygen. You are strongly advised to avoid smoking was on oxygen. Discharge Orders/Prescriptions Prescriptions: New prednisone 10 mg tablet 10 mg PO DAILY Qty: 30 RF: 0 Continued lisinopril-hydrochlorothiazide 20-25 mg tablet 1 tab PO DAILY RF: 0 prazosin 1 MG capsule 1 mg PO DAILY RF: 0 albuterol sulfate 1 INHALER inhaler 1 - 2 puff INHALATION Q4H PRN PRN (Reason: Wheezing) Qty: 1 RF: 0 sertraline 100 mg tablet 200 mg PO DAILY RF: 0 buspirone 5 MG tablet 1 mg PO Q6H RF: 0 Advair HFA 115-21 mcg/actuation HFA aerosol inhaler 2 puff inhalation BID RF: 0 amlodipine 5 mg tablet 5 mg PO DAILY RF: 0 prazosin 2 mg capsule 2 mg PO DAILY RF: 0 esomeprazole magnesium 20 mg capsule,delayed release(DR/EC) 20 mg PO DAILY RF: 0 aripiprazole 20 mg tablet 20 mg PO DAILY RF: 0 bupropion HCl 150 mg tablet extended release 24 hr 150 mg PO DAILY RF: 0 budesonide-formoterol [Symbicort] 80-4.5 mcg/actuation HFA aerosol inhaler 1 - 2 puff INHALATION DAILY RF: 0 ascorbate calcium (vitamin C) 500 mg tablet 500 mg PO DAILY Qty: 1 RF: 0 Referrals / Follow Up: Rosa Bragg MD [Primary Care Provider] - Ginette Arreguin NP, PEG-C [Nurse Practitioner] - Within 2 Weeks Disposition Disposition (needs filled in before D/C Order can be placed): Home, self care Visit Charges Inpatient E&M: 52824 Disch Hosp
== END 2021-01-08 14:19 | disposition home or self-care (01) ==
LOC: ED 12:47 → MS3 14:10
PROVIDERS: Admitting Provider Internal Medicine; Emergency Provider Emergency Medicine; PCP Internal Medicine; Visit Provider Internal Medicine
DX: J44.1 Chronic obstructive pulmonary disease with (acute) exacerbation (principal); K21.9 Gastro-esophageal reflux disease without esophagitis; J96.01 Acute respiratory failure with hypoxia; F43.10 Post-traumatic stress disorder, unspecified; M19.90 Unspecified osteoarthritis, unspecified site; I10 Essential (primary) hypertension; Z79.899 Other long term (current) drug therapy; Z79.51 Long term (current) use of inhaled steroids; Z87.891 Personal history of nicotine dependence; F31.9 Bipolar disorder, unspecified
CPT/HCPCS: 36415; 71045; 71275; 80053; 83605; 83880; 84484; 85025; 85379; 85610; 85730; 87040; 87426; 87633; 93005; 94640; 97110; 97166; 97535; 97802; 99251; 99285; Q9967; A4216; G0463

== ENCOUNTER 2021-01-09 03:59 | Inpatient (IN) | payer MEDICARE, MEDICAID, SELFPAY ==
[2021-01-06 15:50] VITALS: BMI 30.4
[2021-01-09] VITALS (21 sets, daily range): BP systolic 94–158; BP diastolic 50–108; PULSE 65–90; RESP 16–36; TEMP 35.8–37.1; O2SAT 88–100; BMI 33.0; BMI 30.3
--- NOTE | 2021-01-09 04:30 | EDS_ITS ---
HPI <Dr. Andry Fernandez MD - Last Filed: 01/09/21 08:09> History of Present Illness Informant: patient Onset/Context/Timing Onset: Hours (1-2) Context: sudden and sleep Timing: Continuous Quality: Positive for Wheezing (and tight) Current Severity: Mild Maximum Severity: Severe Associated Symptoms Chest Pain: Positive for Tightness Narrative Narrative: Patient has a history of COPD, she was just an inpatient in the hospital for 2 days for a flareup and discharged yesterday, she woke up in the middle of the night short of breath again with the same symptoms that she had when she was admitted. Chest tightness, wheezing, shortness of breath. She received oxygen for home use when she was discharged. She does not know of any heart problems or sleep apnea that she knows of. She received a duo nebulizer treatment on the way here by EMS which helped a lot. She last took prednisone yesterday afternoon before leaving the hospital, she has not yet received her prescription for it. She states it is supposed to be mail ordered. [facility] <Dr. Andry Fernandez MD - Last Filed: 01/09/21 08:09> [facility] Medical History Anxiety and depression Arthritis COPD (chronic obstructive pulmonary disease) Cough due to bronchospasm Dyspnea on exertion GERD (gastroesophageal reflux disease) Hypertension Kidney stones PTSD (post-traumatic stress disorder) Home Medications albuterol sulfate 1 - 2 puff INHALATION Q4H PRN PRN #1 inhaler 09/29/17 [Rx Last Taken 01/08/21] prazosin 1 mg PO DAILY 09/29/17 [History Last Taken 01/08/21] buspirone 10 mg PO Q6H 09/13/20 [History Last Taken 01/08/21] lisinopril 20 mg-hydrochlorothiazide 25 mg tablet 1 tab PO DAILY 09/23/20 [History Last Taken 01/08/21] ascorbate calcium (vitamin C) 500 mg tablet 500 mg PO DAILY #1 tab 10/14/20 [Rx Last Taken 01/08/21] sertraline 100 mg tablet 200 mg PO DAILY tab 10/23/20 [History Last Taken 01/08/21] Advair HFA 2 puff INHALATION BID 01/06/21 [History Last Taken 01/08/21] amlodipine 5 mg PO DAILY 01/06/21 [History Last Taken 01/08/21] aripiprazole 20 mg PO DAILY 01/06/21 [History Last Taken 01/08/21] budesonide-formoterol [Symbicort] 1 - 2 puff INHALATION DAILY 01/06/21 [History Last Taken 01/08/21] bupropion HCl 150 mg PO DAILY 01/06/21 [History Last Taken 01/08/21] esomeprazole magnesium 20 mg PO DAILY 01/06/21 [History Last Taken 01/08/21] prazosin 2 mg PO QHS 01/06/21 [History Last Taken 01/08/21] prednisone 10 mg PO DAILY #30 tab 01/08/21 [Rx Last Taken 01/08/21] Allergy/AdvReac Type Severity Reaction Status Date / Time Sulfa (Sulfonamide AdvReac Nausea Verified 01/09/21 04:00 Antibiotics) Family History Mother Diabetes Hypertension Breast cancer Father Heart disease Hypertension Myocardial infarction, Onset Age: 46 Surgical History History of History of D&C History of hand surgery History of hysterectomy Social History Smoking Status: Former smoker quit date: 01/03/21 Tobacco: How many years used: 36 alcohol intake: never substance use type: does not use what type of physical activity do you participate in: none ROS <Dr. Andry Fernandez MD - Last Filed: 01/09/21 08:09> ROS ED Constitutional Constitutional ED: Denies chills or fever(s) Eyes Eyes: Denies change in vision or diplopia ENT ENT ED: Denies rhinorrhea or sore throat Cardiovascular Cardiovascular: Denies palpitations Respiratory/Chest Respiratory/Chest: Reports cough and dyspnea Gastrointestinal Gastrointestinal: Denies abdominal pain, diarrhea, nausea or vomiting Genitourinary Genitourinary ED: Denies dysuria or hematuria Musculoskeletal Musculoskeletal: Denies back pain or neck pain Integumentary Denies abscess or rash Neurologic Neurologic: Denies headache(s), paresthesias or weakness Psychiatric Psychiatric: Denies anxiety or suicidal thoughts EXAM <Dr. Andry Fernandez MD - Last Filed: 01/09/21 08:09> Physical Exam Const Vital Signs: 01/09/21 04:00 01/09/21 04:07 01/09/21 04:15 Temperature 96.5 F L Temperature Source Temporal Pulse Rate 75 Respiratory Rate 36 H Respiratory Effort Labored Respiratory Depth Shallow Respiratory Pattern Tachypnea Blood Pressure 128/87 H Blood Pressure Mean 100 Pulse Ox 100 Oxygen Delivery Method Non-Rebreather Oxygen Flow Rate (L/min) 01/09/21 04:57 01/09/21 05:00 01/09/21 06:12 Temperature Temperature Source Pulse Rate 72 73 78 Respiratory Rate 20 H 20 H 18 Respiratory Effort Respiratory Depth Respiratory Pattern Tachypnea Blood Pressure 120/84 H 115/73 Blood Pressure Mean 96 87 Pulse Ox 91 96 Oxygen Delivery Method Nasal Cannula Oxygen Flow Rate (L/min) 6 01/09/21 06:57 01/09/21 07:19 Temperature Temperature Source Pulse Rate 73 81 Respiratory Rate 20 H 17 Respiratory Effort Respiratory Depth Respiratory Pattern Blood Pressure 158/108 H Blood Pressure Mean 124 Pulse Ox 88 91 Oxygen Delivery Method Nasal Cannula Nasal Cannula Oxygen Flow Rate (L/min) 3 4 Positive well nourished, well developed and obese General Appearance ED: well developed and NAD Nutritional Appearance: obese HEENT Reports moist mucous membranes normocephalic and atraumatic Eyes PERRL and EOMs intact bilaterally Neck full ROM, no lymphadenopathy, supple and no JVD Resp Resp Narrative: Tachypneic but not in respiratory distress Auscultation: wheezes expiratory wheezes and throughout Cardio regular rate, regular rhythm and no murmurs GI non-tender and non-distended Auscultation: normoactive bowel sounds Palpation: soft Back/Spine no CVA tenderness General Back: other FROM Extremity normal to inspection General Extremety ED: Negative for edema, pulses abnormal or tenderness General Extremity: Negative for edema or pulses abnormal Neuro oriented x3, CN's II-XII intact bilaterally and no sensory deficits noted Sensorium / Orientation: awake and alert Motor Exam: strength 5/5 throughout Skin no rashes or lesions noted and no wounds <Dr. Salome Mccallum MD - Last Filed: 01/09/21 12:21> Physical Exam Const Vital Signs: 01/09/21 04:00 01/09/21 04:07 01/09/21 04:15 Temperature 96.5 F L Temperature Source Temporal Pulse Rate 75 Respiratory Rate 36 H Respiratory Effort Labored Respiratory Depth Shallow Respiratory Pattern Tachypnea Blood Pressure 128/87 H Blood Pressure Mean 100 Pulse Ox 100 Oxygen Delivery Method Non-Rebreather Oxygen Flow Rate (L/min) 01/09/21 04:57 01/09/21 05:00 01/09/21 06:12 Temperature Temperature Source Pulse Rate 72 73 78 Respiratory Rate 20 H 20 H 18 Respiratory Effort Respiratory Depth Respiratory Pattern Tachypnea Blood Pressure 120/84 H 115/73 Blood Pressure Mean 96 87 Pulse Ox 91 96 Oxygen Delivery Method Nasal Cannula Oxygen Flow Rate (L/min) 6 01/09/21 06:57 01/09/21 07:19 Temperature Temperature Source Pulse Rate 73 81 Respiratory Rate 20 H 17 Respiratory Effort Respiratory Depth Respiratory Pattern Blood Pressure 158/108 H Blood Pressure Mean 124 Pulse Ox 88 91 Oxygen Delivery Method Nasal Cannula Nasal Cannula Oxygen Flow Rate (L/min) 3 4 MDM <Dr. Andry Fernandez MD - Last Filed: 01/09/21 08:09> [facility] MDM Narrative Medical decision making narrative: Patient is feeling much better after a couple more albuterol treatments. She is not hypoxic on her home oxygen. We ambulated her and she did okay without hypoxemia. I gave her a dose of prednisone here for the coming day, and we talked about using the inhalers that she has at home when she starts to get wheezy; tonight when this occurred, she tried none of her home treatments prior to calling EMS. She was given more treatments here which did help some, but she remained at 87-88% on her home 3 L nasal cannula, we had to turn her up to 5 L in order to get her into the 90s. She is still very wheezy. I have concerns about sending her home on 5L and having this much dyspnea with very little exertion, so hospitalist consulted to evaluate for readmission. Lab Data Attestation: I reviewed the patient's lab results. Labs: Laboratory Results - last 24 hr 01/09/21 01/09/21 07:33 07:33 WBC 11.9 H RBC 5.91 H Hgb 15.6 H Hct 49.7 H MCV 84.1 MCH 26.4 L MCHC 31.4 L RDW Std Deviation 49.3 H RDW Coeff of Ronny 16.0 H Plt Count 267 MPV 8.0 Immature Gran % (Auto) 0.400 Neut % (Auto) 74.8 H Lymph % (Auto) 15.3 L Refugio % (Auto) 8.5 Eos % (Auto) 0.7 Baso % (Auto) 0.3 Absolute Neuts (auto) 8.9 H Absolute Lymphs (auto) 1.82 Nucleated RBC % 0 Sodium 134 L Potassium 4.0 Chloride 99 Carbon Dioxide 35.0 H Anion Gap 0 L BUN 19 H Creatinine 0.83 Estim Creat Clear Calc 52.02 Est GFR (MDRD) Af Amer 88 Est GFR (MDRD) Non-Af 73 BUN/Creatinine Ratio 22.9 H Glucose 97 Calcium 9.0 Troponin I 0.100 H Radiography Chest X-Ray - ED: 1 View, Read by ED Physician, No Acute Disease and Chronic Changes Diagnostic Testing: Radiology Impression Chest X-Ray 01/09/21 04:48 IMPRESSION: Hypoinflated lungs with subtle interstitial prominence in the lung bases Electronically Signed: Zeb Mcclellan DO at 5:09 EDT Tel , Service support , EKG Initial EKG: Attestation: I personally reviewed and interpreted this EKG as follows: Interpretation: Sinus Rhythm and No Acute Injury Pattern (normal EKG) Prior EKG tracings: available for review Prior: Unchanged <Dr. Salome Mccallum MD - Last Filed: 01/09/21 12:21> [facility] Lab Data Labs: Laboratory Results - last 24 hr 01/09/21 01/09/21 07:33 07:33 WBC 11.9 H RBC 5.91 H Hgb 15.6 H Hct 49.7 H MCV 84.1 MCH 26.4 L MCHC 31.4 L RDW Std Deviation 49.3 H RDW Coeff of Ronny 16.0 H Plt Count 267 MPV 8.0 Immature Gran % (Auto) 0.400 Neut % (Auto) 74.8 H Lymph % (Auto) 15.3 L Refugio % (Auto) 8.5 Eos % (Auto) 0.7 Baso % (Auto) 0.3 Absolute Neuts (auto) 8.9 H Absolute Lymphs (auto) 1.82 Nucleated RBC % 0 Sodium 134 L Potassium 4.0 Chloride 99 Carbon Dioxide 35.0 H Anion Gap 0 L BUN 19 H Creatinine 0.83 Estim Creat Clear Calc 52.02 Est GFR (MDRD) Af Amer 88 Est GFR (MDRD) Non-Af 73 BUN/Creatinine Ratio 22.9 H Glucose 97 Calcium 9.0 Troponin I 0.100 H Radiography Diagnostic Testing: Radiology Impression Chest X-Ray 01/09/21 04:48 IMPRESSION: Hypoinflated lungs with subtle interstitial prominence in the lung bases Electronically Signed: Zeb Mcclellan DO at 5:09 EDT Tel , Service support , Discharge Plan Dx/Rx/DC Orders Clinical Impression: COPD exacerbation, Acute on chronic respiratory failure with hypoxemia Disposition Disposition: Acute Care Hospital [facility] Discharge Date/Time: 01/09/21 07:57
--- NOTE | 2021-01-09 04:48 | RAD_ITS ---
STUDY: X-RAY CHEST REASON FOR EXAM: Female, 65 years old. sob, hx of COPD. TECHNIQUE: Single AP portable view of the chest. COMPARISON: 01/06/2021 FINDINGS: Lungs are hypoinflated with subtle interstitial prominence in the lung bases. Subtle pulmonary edema cannot be excluded. There is no demonstrated pleural abnormality. Normal size heart. Normal mediastinum and magui. Normal visualized pulmonary arteries. Normal visualized aortic arch and descending thoracic aorta. Normal visualized thoracic spine. Normal visualized ribs, clavicles, and shoulders. There is no demonstrated abnormality of the visualized soft tissue structures of the upper abdomen. RAD/Chest 1 View (Portable) IMPRESSION: Hypoinflated lungs with subtle interstitial prominence in the lung bases Electronically Signed: Zeb Mcclellan DO at 5:09 EDT Tel , Service support ,
[2021-01-09] MEDS: Albuterol 2.5 MG/3 ML VIAL.NEB. INHALATION ×3 (04:54→06:55)
[2021-01-09] MEDS: predniSONE 20 MG Tablet 40 MG PO (06:41)
--- NOTE | 2021-01-09 06:52 | ED.RN ---
md made aware that the pt's pulse ox was 87-88%.order for rt treatments.
--- NOTE | 2021-01-09 07:19 | EKG12_ITS ---
Test Reason : SOB Blood Pressure : / mmHG Vent. Rate : 064 BPM Atrial Rate : 064 BPM P-R Int : 136 ms QRS Dur : 082 ms QT Int : 384 ms P-R-T Axes : 066 050 034 degrees QTc Int : 396 ms Normal sinus rhythm Normal ECG Confirmed by MARYANNE POWERS, NURIA ([id number]), story editor KINGS SAAVEDRA ([id number]) on 01/12/2021 2:56:45 PM Referred By: NAJMA Confirmed By:NURIA MADDEN MD
--- NOTE | 2021-01-09 07:20 | HP.PCM.HOS_ITS ---
HPI - General General Date of Admission: 01/09/21 Chief Complaint: Progressive SOB HPI Narrative MAX TOM, is a 65 F who presents progressive shortness of breath. She was discharged yesterday on 2 L of oxygen. She stated that she woke up this morning unable to breathe. She did not go back to smoking. She denied doing anything new. In the emergency department, she required 5 L of oxygen and appeared to be in mild distress. [facility] Medical History Anxiety and depression Arthritis COPD (chronic obstructive pulmonary disease) Cough due to bronchospasm Dyspnea on exertion GERD (gastroesophageal reflux disease) Hypertension Kidney stones PTSD (post-traumatic stress disorder) Home Medications albuterol sulfate 1 - 2 puff INHALATION Q4H PRN PRN #1 inhaler 09/29/17 [Rx Last Taken 01/08/21] prazosin 1 mg PO DAILY 09/29/17 [History Last Taken 01/08/21] buspirone 10 mg PO Q6H 09/13/20 [History Last Taken 01/08/21] lisinopril 20 mg-hydrochlorothiazide 25 mg tablet 1 tab PO DAILY 09/23/20 [History Last Taken 01/08/21] ascorbate calcium (vitamin C) 500 mg tablet 500 mg PO DAILY #1 tab 10/14/20 [Rx Last Taken 01/08/21] sertraline 100 mg tablet 200 mg PO DAILY tab 10/23/20 [History Last Taken 0 01/08/21] Advair HFA 2 puff INHALATION BID 01/06/21 [History Last Taken 01/08/21] amlodipine 5 mg PO DAILY 01/06/21 [History Last Taken 01/08/21] aripiprazole 20 mg PO DAILY 01/06/21 [History Last Taken 01/08/21] budesonide-formoterol [Symbicort] 1 - 2 puff INHALATION DAILY 01/06/21 [History Last Taken 01/08/21] bupropion HCl 150 mg PO DAILY 01/06/21 [History Last Taken 01/08/21] esomeprazole magnesium 20 mg PO DAILY 01/06/21 [History Last Taken 01/08/21] prazosin 2 mg PO QHS 01/06/21 [History Last Taken 01/08/21] prednisone 10 mg PO DAILY #30 tab 01/08/21 [Rx Last Taken 01/08/21] Allergy/AdvReac Type Severity Reaction Status Date / Time Sulfa (Sulfonamide AdvReac Nausea Verified 01/09/21 04:00 Antibiotics) Family History Mother Diabetes Hypertension Breast cancer Father Heart disease Hypertension Myocardial infarction, Onset Age: 46 Surgical History History of History of D&C History of hand surgery History of hysterectomy Social History Smoking Status: Former smoker quit date: 01/03/21 Tobacco: How many years used: 36 alcohol intake: never substance use type: does not use what type of physical activity do you participate in: none ROS Constitutional Constitutional: Denies chills or fever(s) Eyes Eyes: Denies change in vision or diplopia ENT HEENT: Denies rhinorrhea or sore throat Cardiovascular Cardiovascular: Denies palpitations Respiratory/Chest Respiratory/Chest: Reports cough and dyspnea Gastrointestinal Gastrointestinal: Denies abdominal pain, diarrhea, nausea or vomiting Genitourinary Genitourinary: Denies dysuria or hematuria Musculoskeletal Musculoskeletal: Denies back pain or neck pain Integumentary Integumentary: Denies rash Neurologic Neurologic: Denies headache(s), paresthesias or weakness Psychiatric Psychiatric: Denies anxiety or suicidal thoughts Vital Signs Vital Signs Vital Signs: 01/09/21 04:00 01/09/21 04:07 01/09/21 04:15 Temperature 96.5 F L Temperature Source Temporal Pulse Rate 75 Respiratory Rate 36 H Respiratory Effort Labored Respiratory Depth Shallow Respiratory Pattern Tachypnea Blood Pressure 128/87 H Blood Pressure Mean 100 Pulse Ox 100 Oxygen Delivery Method Non-Rebreather Oxygen Flow Rate (L/min) 01/09/21 04:57 01/09/21 05:00 01/09/21 06:12 Temperature Temperature Source Pulse Rate 72 73 78 Respiratory Rate 20 H 20 H 18 Respiratory Effort Respiratory Depth Respiratory Pattern Tachypnea Blood Pressure 120/84 H 115/73 Blood Pressure Mean 96 87 Pulse Ox 91 96 Oxygen Delivery Method Nasal Cannula Oxygen Flow Rate (L/min) 6 01/09/21 06:57 Temperature Temperature Source Pulse Rate 73 Respiratory Rate 20 H Respiratory Effort Respiratory Depth Respiratory Pattern Blood Pressure Blood Pressure Mean Pulse Ox 88 Oxygen Delivery Method Nasal Cannula Oxygen Flow Rate (L/min) 3 Physical Exam Narrative General: Alert, Oriented x3, Cooperative, No apparent distress, Well developed, HEENT: Atraumatic Oral: Moist Mucosa Neck: Supple Lungs: Clear to auscultation Cardiovascular: HS I+II, regular, no murmurs Abdomen: Bowel Sounds Present, Soft, Non Tender Extremities: No edema Skin: No rashes, No breakdown Neurological: Grossly intact Psych/Mental Status: Appropriate Lab / Micro Data Result Diagrams: 01/09/21 07:33 01/09/21 07:33 Radiology Impression Chest X-Ray 01/09/21 04:48 IMPRESSION: Hypoinflated lungs with subtle interstitial prominence in the lung bases Electronically Signed: Zeb Mcclellan DO at 5:09 EDT Tel , Service support , Assessment & Plan Assessment/Plan (1) COPD exacerbation: (2) Hypoxia: PLAN: 1. Acute COPD exacerbation, persistent History of COPD, discharge on 3 L of oxygen Chest x-ray and CTA of the chest showed no acute cardiopulmonary abnormality Continue on Breathing treatments, IV Solu-Medrol, add IV azithromycin Continue to wean off oxygen 2. Rest of chronic medical conditions including hypertension, anxiety/depression/bipolar, history of recurrent UTIs all remained stable. Home medications continued Visit Charges Inpatient E&M: 35824 Init Hosp L2
[2021-01-09 07:41] LABS: Absolute Lymphocyte Count 1.82 X10^3/uL (0.83-4.51); Absolute Neutrophil Count 8.9 X10^3/uL (2.0-7.7); Basophil# 0.03 X10^3/uL; Basophil% 0.3 % (0-1); Eosinophil# 0.08 X10^3/uL; Eosinophils% 0.7 % (0-5); Hematocrit 49.7 % (37-47); Hemoglobin 15.6 g/dL (12.0-15.0); Lymphocyte # 1.82 X10^3/ul (0.83-4.51); Lymphocyte % 15.3 % (19-41); Mean Corp Hgb Conc 31.4 g/dL (32-36); Mean Corpuscular Hgb 26.4 pg (27.0-32.0); Mean Corpuscular Volume 84.1 fL (81-99); Monocyte# 1.01 X10^3/uL; Monocyte% 8.5 % (0-10); NRBC Flagged by Analyzer 0 % (0-5); Neutrophil # 8.94 X10^3/uL (2.7-7.7); Neutrophil % 74.8 % (47-70); Platelet Count 267 K/mm3 (150-450); RBC Distribution Width SD 49.3 fl (35.1-43.9); Red Blood Count 5.91 M/mm3 (4.2-5.4); White Blood Count 11.9 K/mm3 (4.4-11.0)
[2021-01-09 08:00] LABS: Anion Gap 0 (5-15); BUN 19 mg/dL (7-18); BUN/Creat Ratio 22.9 RATIO (10-20); Chloride 99 mmol/L (98-107); Creatinine, Serum 0.83 mg/dL (0.55-1.02); EST Glomerular Filtration Rate 73 mL/min (>60); Est Glom Filt Rate - Afr Amer 88 mL/min (>60); Estimated Creatinine Clearance 52.02 ml/min; Glucose 97 mg/dL (74-106); Sodium Level 134 mmol/L (136-145)
[2021-01-09] MEDS: ARIPiprazole 10 MG Tablet 20 MG PO (09:50)
[2021-01-09] MEDS: busPIRone 5 MG Tablet 10 MG PO ×2 (09:50→16:59)
[2021-01-09] MEDS: amLODIPine 5 MG Tablet PO (09:50)
[2021-01-09] MEDS: Sertraline 100 MG Tablet 200 MG PO (09:50)
[2021-01-09] MEDS: buPROPion (XL) 150 MG TABLET.XL PO (09:50)
[2021-01-09] MEDS: Pantoprazole Sodium 20 MG Tablet PO (09:50)
[2021-01-09] MEDS: Doxazosin 1 MG Tablet PO (09:59)
[2021-01-09] MEDS: hydroCHLOROthiazide 25 MG Tablet PO (09:59)
[2021-01-09] MEDS: Lisinopril 20 MG Tablet PO (09:59)
[2021-01-09] MEDS: Ipratropium/Albuterol Sulfate 3 ML AMPUL.NEB INHALATION ×4 (11:11→22:41)
--- NOTE | 2021-01-09 13:18 | CASEMGMT ---
SYDNI VALDIVIA NOTE: Pt w/Hx COPD and was just OBS admission from 01/06-01/08/21 w/acute exac of COPD. Pt was discharged home 01/08/21 on O2 @ 3 L/M w/exertion only and a referral to [facility] was made. Pt lives alone and friend, Kayleen, is primary support person, who provides transportation and helps her as needed. See SYDNI Barrios CM, assessment on 01/07/21. Pt returned to [facility] ED on 01/09/21 w/SOB and admitted w/COPD exac and hypoxic resp failure. SYDNI VALDIVIA to room at this time to talk w/pt. Pt states Dasga did deliver the concentrator and portable tanks to her home yesterday. She states she wishes to return home @ discharge and denies having any concerns w/going home @ d/c. She denies need for HHC. She states she attempted to make a f/u appt w/Dr Bragg yesterday but had dificulty getting through and states would appreciate if f/u appt with him could be made for her prior to discharge. PCU hospital secretary made aware. Call placed to [facility] VALDIV[facility] and spoke w/Ingris @ [phone]. She was made aware pt has been re-admitted to [facility]. Discharge instructions and summary to be faxed to her @ discharge to [phone] per her request. Pt qualifies for Palliative referral for COPD and is oxygen dependent. Dr Mccallum made aware pt qualifies for referral but is not agreeable to referral at this time. Chato from [facility] notified that pt has been re-admitted to [facility]. D/C plan: Home Pt may qualify for more than current home O2 of 3 L/M w/exertion. If pt needs O2 continuously or more than 3 L/M w/exertion, new script for O2 to be faxed to [facility]. Green sheet placed on pt's Pt states she thinks her friend, Kayleen, can bring in portable O2 tank for her @ discharge to go home on, but she is not sure. If Kayleen is unable to bring in pt's portable O2 tank, then [facility] will need notified for need of delivery of O2 tank to pt's room prior to discharge. Jacquelyn SENIOR RN, CM
[2021-01-09] MEDS: 0.9% Saline Lock 10 ML Syringe IV ×2 (14:10→20:40)
--- NOTE | 2021-01-09 16:16 | ECHOCS_ITS ---
Reason For Study: SOB Procedure This was a 2D Doppler, Color Flow transthoracic echocardiogram. The study was technically difficult. Contrast injection was performed. Exam performed portable in patient room. Left Ventricle Normal left ventricle. The estimated ejection fraction is EF calculated 73% %. Right Ventricle Normal right ventricle. The right ventricular wall motion is normal. Atria Normal left atrium. Normal right atrium. Mitral Valve The mitral valve is structurally normal. No prolapse or stenosis seen. Trivial mitral valve insufficiency. Tricuspid Valve Normal tricuspid valve. No tricuspid valve insufficiency. Aortic Valve Normal aortic valve. Mild (1+) eccentric aortic valve insufficiency. Pulmonic Valve The pulmonic valve is not well visualized. Great Vessels Normal aortic root. Pericardium/Pleural No pericardial effusion. Medication Diluted definity 3ml given slow IV push to enhance endocardial definition. MMode/2D Measurements & Calculations LVIDd: 4.8 cm IVSd: 1.1 cm Ao root diam: 3.7 cm LVIDs: 3.2 cm LVPWd: 1.0 cm RVDd: 3.8 cm FS: 33.5 % LAV(MOD-bp): 41.8 ml LVAd ap4: 26.2 cm2 LVAd ap2: 21.3 cm2 LAV(MOD-bp) Indexed: 23.7 ml/m2 LVLd ap4: 6.8 cm LVLd ap2: 6.4 cm LAV(MOD-sp2): 38.6 ml EDV(MOD-sp4): 82.3 ml EDV(MOD-sp2): 62.0 ml LAV(MOD-sp4): 41.9 ml EDV(sp4-el): 85.6 ml EDV(sp2-el): 62.9 ml LVAs ap4: 11.7 cm2 LVLs ap4: 5.1 cm ESV(MOD-sp4): 22.7 ml ESV(sp4-el): 22.8 ml EF(MOD-sp4): 72.4 % EF(sp4-el): 73.4 % SV(MOD-sp4): 59.6 ml SV(sp4-el): 62.8 ml LA A4 area: 15.5 cm2 LA dimension(2D): 3.7 cm RA A4 area: 12.5 cm2 Time Measurements MV dec time: 0.20 sec Doppler Measurements & Calculations MV E max josé miguel: 85.0 cm/sec Lat Peak E' José Miguel: 7.0 cm/sec Med Peak E' José Miguel: 6.5 cm/sec MV A max josé miguel: 67.6 cm/sec E/E' lat: 12.1 E/E' med: 13.0 MV E/A: 1.3 Ao V2 max: 151.6 cm/sec AI max josé miguel: 363.2 cm/sec LV V1 max: 110.6 cm/sec Ao max P.2 mmHg AI max P.8 mmHg LV V1 max P.9 mmHg AI dec slope: 172.5 cm/sec2 AI P1/2t: 616.5 msec PA V2 max: 100.0 cm/sec TR max josé miguel: 307.9 cm/sec TR max P.8 mmHg ECHO/Echo Complete W/ Contrast Interpretation Summary The estimated ejection fraction is EF calculated 73% %. MIld AR Ordering Physician: Salome Mccallum Referring Physician: DALTON DONATO Performed By: Ernestina Walker, DALJIT, RVT
[2021-01-09 16:30] LABS: Bedside Glucose 154 mg/dL (70-110)
[2021-01-09] MEDS: Insulin Lispro 100 UNIT/ML INSULN.PEN SC (16:59)
[2021-01-09] MEDS: Doxazosin 1 MG Tablet 1.5 MG PO (20:39)
[2021-01-09 22:11] LABS: Bedside Glucose 130 mg/dL (70-110)
[2021-01-10] VITALS (17 sets, daily range): BP systolic 96–123; BP diastolic 62–75; PULSE 66–93; RESP 17–26; TEMP 36.4–36.9; O2SAT 88–95
[2021-01-10] MEDS: busPIRone 5 MG Tablet 10 MG PO ×5 (00:29→23:49)
[2021-01-10] MEDS: Ipratropium/Albuterol Sulfate 3 ML AMPUL.NEB INHALATION ×6 (02:56→23:20)
[2021-01-10 05:51] LABS: Absolute Lymphocyte Count 0.79 X10^3/uL (0.83-4.51); Absolute Neutrophil Count 12.4 X10^3/uL (2.0-7.7); Basophil# 0.01 X10^3/uL; Basophil% 0.1 % (0-1); Eosinophil# 0.02 X10^3/uL; Eosinophils% 0.1 % (0-5); Hematocrit 49.3 % (37-47); Lymphocyte # 0.79 X10^3/ul (0.83-4.51); Lymphocyte % 5.7 % (19-41); Mean Corp Hgb Conc 32.5 g/dL (32-36); Mean Corpuscular Hgb 26.8 pg (27.0-32.0); Mean Corpuscular Volume 82.7 fL (81-99); Mean Platelet Vol. 8.4 fl (6.2-12.0); Monocyte# 0.65 X10^3/uL; Monocyte% 4.7 % (0-10); NRBC Flagged by Analyzer 0 % (0-5); Neutrophil # 12.41 X10^3/uL (2.7-7.7); Platelet Count 285 K/mm3 (150-450); RBC Distribution Width CV 16.6 % (11.6-14.6); Red Blood Count 5.96 M/mm3 (4.2-5.4); White Blood Count 13.9 K/mm3 (4.4-11.0)
[2021-01-10] MEDS: 0.9% Saline Lock 10 ML Syringe IV ×4 (06:28→20:47)
[2021-01-10 06:30] LABS: Bedside Glucose 128 mg/dL (70-110)
[2021-01-10 06:36] LABS: ALB/GLOB Ratio 0.9 RATIO (0.9-2.4); AST(SGOT) 47 U/L (15-37); Alanine Aminotransfer ALT/SGPT 61 U/L (13-56); Albumin, Serum 3.1 g/dL (3.2-5.0); Alkaline Phosphatase 106 U/L (45-117); Anion Gap 5 (5-15); BUN 27 mg/dL (7-18); BUN/Creat Ratio 34.3 RATIO (10-20); Calcium,Total 9.3 mg/dL (8.5-10.1); Chloride 97 mmol/L (98-107); Creatinine, Serum 0.79 mg/dL (0.55-1.02); EST Glomerular Filtration Rate 77 mL/min (>60); Est Glom Filt Rate - Afr Amer 94 mL/min (>60); Estimated Creatinine Clearance 43.18 ml/min; Globulin 3.6 g/dL (2.2-4.2); Glucose 121 mg/dL (74-106); Potassium 4.5 mmol/L (3.5-5.1); Protein, Total 6.7 g/dL (6.4-8.2); Sodium Level 133 mmol/L (136-145)
[2021-01-10] MEDS: Pantoprazole Sodium 20 MG Tablet PO (09:37)
[2021-01-10] MEDS: Enoxaparin 40 MG/0.4 ML Syringe SC (09:37)
[2021-01-10] MEDS: ARIPiprazole 10 MG Tablet 20 MG PO (09:37)
[2021-01-10] MEDS: Doxazosin 1 MG Tablet PO (09:37)
[2021-01-10] MEDS: Sertraline 100 MG Tablet 200 MG PO (09:37)
[2021-01-10] MEDS: Lisinopril 20 MG Tablet PO (09:38)
[2021-01-10] MEDS: hydroCHLOROthiazide 25 MG Tablet PO (09:38)
[2021-01-10] MEDS: amLODIPine 5 MG Tablet PO (09:38)
[2021-01-10] MEDS: Insulin Lispro 100 UNIT/ML INSULN.PEN SC ×3 (11:32→20:47)
[2021-01-10 12:00] LABS: Bedside Glucose 168 mg/dL (70-110)
[2021-01-10] MEDS: buPROPion (XL) 150 MG TABLET.XL PO (13:40)
--- NOTE | 2021-01-10 13:56 | PN.HOSP_ITS ---
Subjective Subjective Patient was seen and examined. She is still wheezy. Remains on 5 L of oxygen. Objective Data Objective Data Vital Signs: Vital Signs Temp Pulse Resp BP Pulse Ox 97.9 F 93 26 H 115/75 93 01/10/21 09:32 01/10/21 12:16 01/10/21 11:12 01/10/21 09:32 01/10/21 09:32 Oxygen Flow Rate (L/min) 5 Oxygen Delivery Method Nasal Cannula Weight: 75.2 kg Body Mass Index (BMI) 30.3 Intake & Output: Intake and Output for Last 24 Hours 01/08/21 01/09/21 01/10/21 23:59 23:59 23:59 Intake Total 575 / 575 1255 / 1255 Output Total 300 / 300 700 / 700 Balance 275 / 275 555 / 555 Lab / Micro Data Result Diagrams: 01/10/21 05:14 01/10/21 05:14 Labs: Laboratory Results - last 24 hr 01/09/21 01/09/21 01/09/21 16:18 16:33 19:41 WBC RBC Hgb Hct MCV MCH MCHC RDW Std Deviation RDW Coeff of Ronny Plt Count MPV Immature Gran % (Auto) Neut % (Auto) Lymph % (Auto) Knott % (Auto) Eos % (Auto) Baso % (Auto) Absolute Neuts (auto) Absolute Lymphs (auto) Nucleated RBC % Sodium Potassium Chloride Carbon Dioxide Anion Gap BUN Creatinine Estim Creat Clear Calc Est GFR (MDRD) Af Amer Est GFR (MDRD) Non-Af BUN/Creatinine Ratio Glucose Calcium Total Bilirubin AST ALT Alkaline Phosphatase Troponin I 0.054 H 0.021 Total Protein Albumin Globulin Albumin/Globulin Ratio POC Glucose 154 H 01/09/21 01/09/21 01/10/21 20:31 21:55 05:14 WBC 13.9 H RBC 5.96 H Hgb 16.0 H Hct 49.3 H MCV 82.7 MCH 26.8 L MCHC 32.5 RDW Std Deviation 48.0 H RDW Coeff of Ronny 16.6 H Plt Count 285 MPV 8.4 Immature Gran % (Auto) 0.400 Neut % (Auto) 89.0 H Lymph % (Auto) 5.7 L Knott % (Auto) 4.7 Eos % (Auto) 0.1 Baso % (Auto) 0.1 Absolute Neuts (auto) 12.4 H Absolute Lymphs (auto) 0.79 L Nucleated RBC % 0 Sodium Potassium Chloride Carbon Dioxide Anion Gap BUN Creatinine Estim Creat Clear Calc Est GFR (MDRD) Af Amer Est GFR (MDRD) Non-Af BUN/Creatinine Ratio Glucose Calcium Total Bilirubin AST ALT Alkaline Phosphatase Troponin I 0.024 Total Protein Albumin Globulin Albumin/Globulin Ratio POC Glucose 130 H 01/10/21 01/10/21 01/10/21 05:14 06:24 11:30 WBC RBC Hgb Hct MCV MCH MCHC RDW Std Deviation RDW Coeff of Ronny Plt Count MPV Immature Gran % (Auto) Neut % (Auto) Lymph % (Auto) Knott % (Auto) Eos % (Auto) Baso % (Auto) Absolute Neuts (auto) Absolute Lymphs (auto) Nucleated RBC % Sodium 133 L Potassium 4.5 Chloride 97 L Carbon Dioxide 31.0 Anion Gap 5 BUN 27 H Creatinine 0.79 Estim Creat Clear Calc 43.18 Est GFR (MDRD) Af Amer 94 Est GFR (MDRD) Non-Af 77 BUN/Creatinine Ratio 34.3 H Glucose 121 H Calcium 9.3 Total Bilirubin 0.20 AST 47 H ALT 61 H Alkaline Phosphatase 106 Troponin I Total Protein 6.7 Albumin 3.1 L Globulin 3.6 Albumin/Globulin Ratio 0.9 POC Glucose 128 H 168 H Radiography Diagnostic Testing: Radiology Impression Echocardiogram 01/09/21 16:16 Interpretation Summary The estimated ejection fraction is EF calculated 73% %. MIld AR Ordering Physician: Salome Mccallum Referring Physician: DALTON DONATO Performed By: Ernestina Walker, RDCS, RVT Physical Exam Narrative General: Alert, Oriented x3, Cooperative, No apparent distress, Well developed, HEENT: Atraumatic Oral: Moist Mucosa Neck: Supple Lungs: Diminished, wheezes ++ Cardiovascular: HS I+II, regular, no murmurs Abdomen: Bowel Sounds Present, Soft, Non Tender Extremities: No edema Skin: No rashes, No breakdown Neurological: Grossly intact Psych/Mental Status: Appropriate Assessment & Plan Assessment/Plan (1) COPD exacerbation: (2) Hypoxia: PLAN: 1. Acute COPD exacerbation, persistent, currently on 5 L of oxygen History of COPD, recently discharged on 3 L of oxygen Chest x-ray and CTA of the chest showed no acute cardiopulmonary abnormality Continue on Breathing treatments, IV Solu-Medrol, IV azithromycin Continue to wean off oxygen 2. Rest of chronic medical conditions including hypertension, anxiety/depression/bipolar, history of recurrent UTIs all remained stable. Home medications continued Visit Charges Inpatient E&M: 10735 Subs Hosp L2
[2021-01-10 17:15] LABS: Bedside Glucose 200 mg/dL (70-110)
[2021-01-10] MEDS: guaiFENesin 1,200 MG Tablet 1200 MG PO (18:06)
[2021-01-10] MEDS: Doxazosin 1 MG Tablet 1.5 MG PO (20:46)
[2021-01-10 21:11] LABS: Bedside Glucose 179 mg/dL (70-110)
[2021-01-11] VITALS (16 sets, daily range): BP systolic 105–115; BP diastolic 48–73; PULSE 65–91; RESP 16–20; TEMP 36.2–36.7; O2SAT 94–96
[2021-01-11] MEDS: Ipratropium/Albuterol Sulfate 3 ML AMPUL.NEB INHALATION ×6 (03:00→23:34)
[2021-01-11] MEDS: busPIRone 5 MG Tablet 10 MG PO ×4 (05:31→23:25)
[2021-01-11] MEDS: 0.9% Saline Lock 10 ML Syringe IV ×2 (05:31→09:32)
[2021-01-11] MEDS: Insulin Lispro 100 UNIT/ML INSULN.PEN SC ×2 (06:42→21:05)
[2021-01-11 06:51] LABS: Bedside Glucose 156 mg/dL (70-110)
[2021-01-11] MEDS: ARIPiprazole 10 MG Tablet 20 MG PO (09:24)
[2021-01-11] MEDS: Doxazosin 1 MG Tablet PO (09:25)
[2021-01-11] MEDS: hydroCHLOROthiazide 25 MG Tablet PO (09:26)
[2021-01-11] MEDS: Enoxaparin 40 MG/0.4 ML Syringe SC (09:27)
[2021-01-11] MEDS: guaiFENesin 1,200 MG Tablet 1200 MG PO ×2 (09:27→21:04)
[2021-01-11] MEDS: amLODIPine 5 MG Tablet PO (09:27)
[2021-01-11] MEDS: Pantoprazole Sodium 20 MG Tablet PO (09:27)
[2021-01-11] MEDS: Lisinopril 20 MG Tablet PO (09:28)
[2021-01-11] MEDS: Sertraline 100 MG Tablet 200 MG PO (09:28)
[2021-01-11] MEDS: buPROPion (XL) 150 MG TABLET.XL PO (09:28)
[2021-01-11 13:00] LABS: Bedside Glucose 133 mg/dL (70-110)
--- NOTE | 2021-01-11 13:31 | PN.HOSP_ITS ---
Subjective Subjective Patient was seen and examined. Complains of congestion. Still wheezing. Objective Data Objective Data Vital Signs: Vital Signs Temp Pulse Resp BP Pulse Ox 97.5 F L 85 16 105/60 94 01/11/21 09:12 01/11/21 09:12 01/11/21 09:12 01/11/21 09:12 01/11/21 09:12 Oxygen Flow Rate (L/min) 4 Oxygen Delivery Method Nasal Cannula Weight: 75.2 kg Body Mass Index (BMI) 30.3 Intake & Output: Intake and Output for Last 24 Hours 01/09/21 01/10/21 01/11/21 23:59 23:59 23:59 Intake Total 575 / 575 1655 / 1705 540 / 540 Output Total 300 / 300 1250 / 1450 700 / 700 Balance 275 / 275 405 / 255 -160 / -160 Lab / Micro Data Result Diagrams: 01/10/21 05:14 01/10/21 05:14 Labs: Laboratory Results - last 24 hr 01/10/21 01/10/21 01/11/21 16:57 20:43 06:42 POC Glucose 200 H 179 H 156 H 01/11/21 11:27 POC Glucose 133 H Physical Exam Narrative General: Alert, Oriented x3, Cooperative, No apparent distress, Well developed, HEENT: Atraumatic Oral: Moist Mucosa Neck: Supple Lungs: Diminished, wheezes ++ Cardiovascular: HS I+II, regular, no murmurs Abdomen: Bowel Sounds Present, Soft, Non Tender Extremities: No edema Skin: No rashes, No breakdown Neurological: Grossly intact Psych/Mental Status: Appropriate Assessment & Plan Assessment/Plan (1) COPD exacerbation: (2) Hypoxia: PLAN: 68-year-old female with past medical history of COPD, not on oxygen at home, recently admitted on 01/06/21 with acute COPD exacerbation. She was found to be requiring oxygen was discharged on 3 L of oxygen. Patient return b ack in 24 hours. 1. Acute COPD exacerbation, persistent, currently on 4-5 L of oxygen History of COPD, recently discharged on 3 L of oxygen Chest x-ray and CTA of the chest showed no acute cardiopulmonary abnormality Continue on Breathing treatments, IV Solu-Medrol, IV azithromycin Would add loratadine daily Continue to wean off oxygen 2. Rest of chronic medical conditions including hypertension, anxiety/depression/bipolar, history of recurrent UTIs all remained stable. Home medications continued Visit Charges Inpatient E&M: 07416 Subs Hosp L2
[2021-01-11] MEDS: Loratadine 10 MG Tablet PO (15:16)
[2021-01-11 17:26] LABS: Bedside Glucose 142 mg/dL (70-110)
[2021-01-11] MEDS: Doxazosin 1 MG Tablet 1.5 MG PO (21:04)
[2021-01-11 21:41] LABS: Bedside Glucose 154 mg/dL (70-110)
[2021-01-12 03:31] VITALS: PULSE 68
[2021-01-12 03:58] VITALS: BP 101/69; PULSE 64; RESP 18; TEMP 36.8; O2SAT 96
[2021-01-12 04:40] LABS: Absolute Lymphocyte Count 0.69 X10^3/uL (0.83-4.51); Absolute Neutrophil Count 12.5 X10^3/uL (2.0-7.7); Basophil# 0.02 X10^3/uL; Basophil% 0.1 % (0-1); Hemoglobin 16.3 g/dL (12.0-15.0); Lymphocyte # 0.69 X10^3/ul (0.83-4.51); Mean Corpuscular Volume 81.5 fL (81-99); Mean Platelet Vol. 8.5 fl (6.2-12.0); Monocyte# 0.51 X10^3/uL; Monocyte% 3.7 % (0-10); NRBC Flagged by Analyzer 0 % (0-5); Neutrophil # 12.51 X10^3/uL (2.7-7.7); Neutrophil % 90.7 % (47-70); Platelet Count 268 K/mm3 (150-450); RBC Distribution Width CV 16.7 % (11.6-14.6); RBC Distribution Width SD 47.8 fl (35.1-43.9); Red Blood Count 6.26 M/mm3 (4.2-5.4); White Blood Count 13.8 K/mm3 (4.4-11.0)
[2021-01-12 05:00] LABS: ALB/GLOB Ratio 0.8 RATIO (0.9-2.4); AST(SGOT) 16 U/L (15-37); Alanine Aminotransfer ALT/SGPT 50 U/L (13-56); Albumin, Serum 3.2 g/dL (3.2-5.0); Alkaline Phosphatase 99 U/L (45-117); Anion Gap 5 (5-15); BUN 26 mg/dL (7-18); BUN/Creat Ratio 30.8 RATIO (10-20); Chloride 91 mmol/L (98-107); Creatinine, Serum 0.84 mg/dL (0.55-1.02); EST Glomerular Filtration Rate 72 mL/min (>60); Est Glom Filt Rate - Afr Amer 87 mL/min (>60); Globulin 3.8 g/dL (2.2-4.2); Glucose 135 mg/dL (74-106); Potassium 4.9 mmol/L (3.5-5.1); Sodium Level 131 mmol/L (136-145)
[2021-01-12] MEDS: busPIRone 5 MG Tablet 10 MG PO (06:30)
[2021-01-12 06:50] LABS: Bedside Glucose 123 mg/dL (70-110)
[2021-01-12 07:00] VITALS: PULSE 67
[2021-01-12] MEDS: ARIPiprazole 10 MG Tablet 20 MG PO (09:28)
[2021-01-12] MEDS: Sertraline 100 MG Tablet 200 MG PO (09:29)
[2021-01-12] MEDS: buPROPion (XL) 150 MG TABLET.XL PO (09:29)
[2021-01-12] MEDS: Pantoprazole Sodium 20 MG Tablet PO (09:29)
[2021-01-12] MEDS: Lisinopril 20 MG Tablet PO (09:29)
[2021-01-12] MEDS: Doxazosin 1 MG Tablet PO (09:30)
[2021-01-12] MEDS: hydroCHLOROthiazide 25 MG Tablet PO (09:30)
[2021-01-12] MEDS: guaiFENesin 1,200 MG Tablet 1200 MG PO (09:30)
[2021-01-12] MEDS: Loratadine 10 MG Tablet PO (09:31)
[2021-01-12] MEDS: Enoxaparin 40 MG/0.4 ML Syringe SC (09:31)
[2021-01-12] MEDS: amLODIPine 5 MG Tablet PO (09:33)
[2021-01-12] MEDS: 0.9% Saline Lock 10 ML Syringe IV (09:34)
--- NOTE | 2021-01-12 09:37 | PCM.DC ---
Discharge Instructions Diet Discharge Diet: No restrictions Activity Discharge Activity: Return to Normal Activity Follow Up Care Test Results: Test results from this visit will be discussed in further detail at your follow-up appointment, if applicable. Discharge Plan Admission Admit Date/Time: 01/09/21 12:55 Primary Reason for Your Visit: COPD Attending Provider: Saad Cobb Primary Care Provider: Rosa Bragg Instructions Patient Instructions: ED COPD Flare Discharge Orders/Prescriptions Prescriptions: New Mucus Relief ER 1,200 mg Tablet Extended Release 12hr 1,200 mg PO BID Qty: 14 RF: 0 Continued lisinopril-hydrochlorothiazide 20-25 mg tablet 1 tab PO DAILY RF: 0 prazosin 1 MG capsule 1 mg PO DAILY RF: 0 albuterol sulfate 1 INHALER inhaler 1 - 2 puff INHALATION Q4H PRN PRN (Reason: Wheezing) Qty: 1 RF: 0 sertraline 100 mg tablet 200 mg PO DAILY RF: 0 buspirone 5 MG tablet 10 mg PO Q6H RF: 0 Advair HFA 115-21 mcg/actuation HFA aerosol inhaler 2 puff inhalation BID RF: 0 amlodipine 5 mg tablet 5 mg PO DAILY RF: 0 prazosin 2 mg capsule 2 mg PO QHS RF: 0 esomeprazole magnesium 20 mg capsule,delayed release(DR/EC) 20 mg PO DAILY RF: 0 aripiprazole 20 mg tablet 20 mg PO DAILY RF: 0 bupropion HCl 150 mg tablet extended release 24 hr 150 mg PO DAILY RF: 0 budesonide-formoterol [Symbicort] 80-4.5 mcg/actuation HFA aerosol inhaler 1 - 2 puff INHALATION DAILY RF: 0 prednisone 10 mg tablet 10 mg PO DAILY Qty: 30 RF: 0 ascorbate calcium (vitamin C) 500 mg tablet 500 mg PO DAILY Qty: 1 RF: 0 Referrals / Follow Up: Neil Durham MD [STAFF PHYSICIAN] - 3-5 Days Rosa Bragg MD [Primary Care Provider] - In 1 Week Disposition Disposition (needs filled in before D/C Order can be placed): Home, self care
[2021-01-12 09:41] VITALS: BP 121/70; PULSE 76; RESP 18; TEMP 36.6; O2SAT 95
--- NOTE | 2021-01-12 09:45 | PCM.DC.SUM ---
Providers Date of Admission: 01/09/21 Primary Care Physician: Dr. Rosa Bragg MD Reason For Visit: COPD EXAC., HYPOXIC RESP FAILURE Diagnosis Discharge Diagnosis (1) COPD exacerbation: Status: Chronic Code(s): J44.1 - Chronic obstructive pulmonary disease with (acute) exacerbation (2) Hypoxia: Status: Acute Code(s): R09.02 - Hypoxemia Medications at Discharge Home Medications albuterol sulfate 1 - 2 puff INHALATION Q4H PRN PRN #1 inhaler 09/29/17 prazosin 1 mg PO DAILY 09/29/17 buspirone 10 mg PO Q6H 09/13/20 lisinopril 20 mg-hydrochlorothiazide 25 mg tablet 1 tab PO DAILY 09/23/20 ascorbate calcium (vitamin C) 500 mg tablet 500 mg PO DAILY #1 tab 10/14/20 sertraline 100 mg tablet 200 mg PO DAILY tab 10/23/20 Advair HFA 2 puff INHALATION BID 01/06/21 amlodipine 5 mg PO DAILY 01/06/21 aripiprazole 20 mg PO DAILY 01/06/21 budesonide-formoterol [Symbicort] 1 - 2 puff INHALATION DAILY 01/06/21 bupropion HCl 150 mg PO DAILY 01/06/21 esomeprazole magnesium 20 mg PO DAILY 01/06/21 prazosin 2 mg PO QHS 01/06/21 guaifenesin [Mucus Relief ER] 1,200 mg PO BID #14 tab 01/12/21 prednisone 10 mg PO DAILY #30 tab 01/12/21 Hospital Course Summary of Care Provided Minutes Spent on Discharge: 35 Hospital Course: Patient is a 65-year-old lady with past medical history segment for COPD admitted with progressive shortness of breath and assessment of COPD with acute exacerbation was made. 1. Assessment COPD exacerbation ?Patient was admitted to regular nursing floor managed with systemic steroids, bronchodilator treatment as well as antibiotic therapy with Zithromax. Patient condition did improve. Was discharged 3 days after her admission on her baseline home oxygen 2. Acute on chronic hypoxic respiratory failure ?Secondary to COPD patient is on baseline home oxygen did continue 3. Hypertension - Blood pressure controlled, home medications continued with dose adjustment as needed 4. GERD ?Patient on PPI did continue 5. Depression ?Patient is on SSRI did continue Physical Exam Narrative GENERAL: cooperative HEENT: Atraumatic; EYES; Anicteric, Normal Conjunctiva NECK; supple, normal thyroid, RESPIRATORY: Diminished to auscultation CARDIOVASCULAR: Regular S1 S2, NEURO: Awake; no lateralizing signs. SKIN: No Rash PSYCH; Flat affect ABG / Lab / Microbiology Data Result Diagrams: 01/12/21 04:25 01/12/21 04:25 Laboratory: Laboratory Results - last 24 hr 01/11/21 01/11/21 01/11/21 11:27 17:13 21:01 WBC RBC Hgb Hct MCV MCH MCHC RDW Std Deviation RDW Coeff of Ronny Plt Count MPV Immature Gran % (Auto) Neut % (Auto) Lymph % (Auto) Scurry % (Auto) Eos % (Auto) Baso % (Auto) Absolute Neuts (auto) Absolute Lymphs (auto) Nucleated RBC % Sodium Potassium Chloride Carbon Dioxide Anion Gap BUN Creatinine Estim Creat Clear Calc Est GFR (MDRD) Af Amer Est GFR (MDRD) Non-Af BUN/Creatinine Ratio Glucose Calcium Total Bilirubin AST ALT Alkaline Phosphatase Total Protein Albumin Globulin Albumin/Globulin Ratio POC Glucose 133 H 142 H 154 H 01/12/21 01/12/21 01/12/21 04:25 04:25 06:30 WBC 13.8 H RBC 6.26 H Hgb 16.3 H Hct 51.0 H MCV 81.5 MCH 26.0 L MCHC 32.0 RDW Std Deviation 47.8 H RDW Coeff of Ronny 16.7 H Plt Count 268 MPV 8.5 Immature Gran % (Auto) 0.500 Neut % (Auto) 90.7 H Lymph % (Auto) 5.0 L Scurry % (Auto) 3.7 Eos % (Auto) 0.0 Baso % (Auto) 0.1 Absolute Neuts (auto) 12.5 H Absolute Lymphs (auto) 0.69 L Nucleated RBC % 0 Sodium 131 L Potassium 4.9 Chloride 91 L Carbon Dioxide 35.0 H Anion Gap 5 BUN 26 H Creatinine 0.84 Estim Creat Clear Calc 51.40 Est GFR (MDRD) Af Amer 87 Est GFR (MDRD) Non-Af 72 BUN/Creatinine Ratio 30.8 H Glucose 135 H Calcium 10.0 Total Bilirubin 0.30 AST 16 ALT 50 Alkaline Phosphatase 99 Total Protein 7.0 Albumin 3.2 Globulin 3.8 Albumin/Globulin Ratio 0.8 L POC Glucose 123 H D/C Instructions Discharge Diet: No restrictions Discharge Activity: Return to Normal Activity Meaningful Use Info Meaningful Use Diagnoses (Choose all that apply): None applicable Discharge Plan Admission Admit Date/Time: 01/09/21 12:55 Primary Reason for Your Visit: COPD Attending Provider: Saad Cobb Primary Care Provider: Rosa Bragg Instructions Patient Instructions: ED COPD Flare Discharge Orders/Prescriptions Prescriptions: New Mucus Relief ER 1,200 mg Tablet Extended Release 12hr 1,200 mg PO BID Qty: 14 RF: 0 Continued lisinopril-hydrochlorothiazide 20-25 mg tablet 1 tab PO DAILY RF: 0 prazosin 1 MG capsule 1 mg PO DAILY RF: 0 albuterol sulfate 1 INHALER inhaler 1 - 2 puff INHALATION Q4H PRN PRN (Reason: Wheezing) Qty: 1 RF: 0 sertraline 100 mg tablet 200 mg PO DAILY RF: 0 buspirone 5 MG tablet 10 mg PO Q6H RF: 0 Advair HFA 115-21 mcg/actuation HFA aerosol inhaler 2 puff inhalation BID RF: 0 amlodipine 5 mg tablet 5 mg PO DAILY RF: 0 prazosin 2 mg capsule 2 mg PO QHS RF: 0 esomeprazole magnesium 20 mg capsule,delayed release(DR/EC) 20 mg PO DAILY RF: 0 aripiprazole 20 mg tablet 20 mg PO DAILY RF: 0 bupropion HCl 150 mg tablet extended release 24 hr 150 mg PO DAILY RF: 0 budesonide-formoterol [Symbicort] 80-4.5 mcg/actuation HFA aerosol inhaler 1 - 2 puff INHALATION DAILY RF: 0 prednisone 10 mg tablet 10 mg PO DAILY Qty: 30 RF: 0 ascorbate calcium (vitamin C) 500 mg tablet 500 mg PO DAILY Qty: 1 RF: 0 Referrals / Follow Up: Neil Durham MD [STAFF PHYSICIAN] - 3-5 Days Rosa Bragg MD [Primary Care Provider] - In 1 Week Disposition Disposition (needs filled in before D/C Order can be placed): Home, self care Visit Charges Inpatient E&M: 25909 Disch Hosp
--- NOTE | 2021-01-12 10:18 | PHA.DC.MC ---
Pharmacy Service has performed discharge medication reconciliation and counseling for this patient. 1. GUAIFENESIN 1200MG PO BID The patient's discharge medication list was reviewed for discrepancies and discrepancies were resolved. Home Medications albuterol sulfate 1 - 2 puff INHALATION Q4H PRN PRN #1 inhaler 09/29/17 prazosin 1 mg PO DAILY 09/29/17 buspirone 10 mg PO Q6H 09/13/20 lisinopril 20 mg-hydrochlorothiazide 25 mg tablet 1 tab PO DAILY 09/23/20 ascorbate calcium (vitamin C) 500 mg tablet 500 mg PO DAILY #1 tab 10/14/20 sertraline 100 mg tablet 200 mg PO DAILY tab 10/23/20 Advair HFA 2 puff INHALATION BID 01/06/21 amlodipine 5 mg PO DAILY 01/06/21 aripiprazole 20 mg PO DAILY 01/06/21 budesonide-formoterol [Symbicort] 1 - 2 puff INHALATION DAILY 01/06/21 bupropion HCl 150 mg PO DAILY 01/06/21 esomeprazole magnesium 20 mg PO DAILY 01/06/21 prazosin 2 mg PO QHS 01/06/21 guaifenesin [Mucus Relief ER] 1,200 mg PO BID #14 tab 01/12/21 prednisone 10 mg PO DAILY #30 tab 01/12/21 The patient was counseled on the following discharge medications and changes in medications for homegoing were reviewed. The Reason for Use, instructions for use, and potential side effects were reviewed for all new medications. The patient's questions regarding all of their medications were answered. The patient was able to verbally demonstrate an understanding of their discharge medications. Patient counseled by director of student services
[2021-01-12 10:33] VITALS: O2SAT 84; O2SAT 87; O2SAT 89; O2SAT 92; O2SAT 94
[2021-01-12 10:36] VITALS: PULSE 82; RESP 24; O2SAT 96
[2021-01-12] MEDS: Ipratropium/Albuterol Sulfate 3 ML AMPUL.NEB INHALATION (10:36)
--- NOTE | 2021-01-12 11:07 | CASEMGMT ---
RN CM in to pt room. Pt aware that she will need O2 continuous now. She states Kayleen will bring in her portable O2 to go home with. She is aware that CCN will follow up with her once home. Chato in [facility] made aware. Faxed [employer] the updated O2 script. Confirmed receipt with [facility]. Faxed DC instructions and summary to [facility] case supervisor.
[2021-01-12 11:30] LABS: Bedside Glucose 145 mg/dL (70-110)
--- NOTE | 2021-01-13 15:08 | CASEMGMT ---
SYDNI VALDIVIA Discharge Follow-up Phone Call: JUVENAL: 12 Strata: 3 Call Date: 01/13/21 Discharge Date: 01/12/21 Time of Call: 1505 Duration: 3min Admitting Diagnosis: Acute COPD SYDNI VALDIVIA completed follow-up phone call after recent hospitalization. Patient states she is doing well and the CCN has been out to see patient. Patient states she was able to fill prescriptions without any issues. Patient has follow-up appts scheduled. Patient had no further questions or concerns at this time.
== END 2021-01-12 13:25 | disposition home or self-care (01) | DRG 190 ==
LOC: ED 07:11 → PCU 07:48
PROVIDERS: Admitting Provider Internal Medicine; Emergency Provider Emergency Medicine; PCP Internal Medicine; Visit Provider Internal Medicine
DX: J44.1 Chronic obstructive pulmonary disease with (acute) exacerbation (principal); J96.21 Acute and chronic respiratory failure with hypoxia; I10 Essential (primary) hypertension; M19.90 Unspecified osteoarthritis, unspecified site; K21.9 Gastro-esophageal reflux disease without esophagitis; F43.10 Post-traumatic stress disorder, unspecified; F31.9 Bipolar disorder, unspecified; Z79.51 Long term (current) use of inhaled steroids; Z79.899 Other long term (current) drug therapy; Z87.891 Personal history of nicotine dependence
CPT/HCPCS: 36415; 71045; 71275; 80048; 80053; 82962; 83605; 83880; 84484; 85025; 85379; 85610; 85730; 87040; 87426; 87633; 93005; 93306; 94640; 94667; 96372; 96374; 96376; 97110; 97166; 97535; 97802; 99218; 99251; 99285; Q9957; Q9967; A4216; C8929; G0378; G0463

== ENCOUNTER → 2021-02-03 11:02 | Outpatient (CLI) | payer MEDICARE, MEDICAID, SELFPAY ==
[2021-01-16 11:07] VITALS: BMI 31.2
[2021-01-19 13:12] VITALS: BMI 31.2
[2021-02-03 11:47] VITALS: PULSE 100; PULSE 79; PULSE 85; PULSE 94; PULSE 96; PULSE 99; O2SAT 92; O2SAT 93; O2SAT 98
--- NOTE | 2021-02-03 11:51 | CPS ---
Pt was placed on 3 lpm pulse dose with her own tank at 1 minute. Remainder of walk on 3 lpm pulse dose.
--- NOTE | 2021-02-03 14:27 | PCM.PSN.6M ---
PSN 6 Minute Walk Test 6 Minute Walk Test 6 Minute Walk Test: 6 Minute Walk Test PSN:6-Minute Walk Test Start: 02/03/21 11:47 Freq: Status: Active Protocol: [id number] Document 02/03/21 11:47 [facility] (Rec: 02/03/21 11:54 [facility] [id number]) 6 Minute Walk Test Date Performed 02/03/21 Time Performed 11:15 Height 5 ft 2 in Weight: 78.925 kg Weight in Pounds 174.[address]: Dr Yao Assistive device used: Walker Pre-test Oxygen Delivery Method Room Air Pulse Ox (%) 93 Pulse Rate (60-100 beats/min) 79 Dyspnea Aj Scale (0-10) 0.5 Exertion Aj Scale (6-20) 6 1st minute Oxygen Delivery Method Room Air Pulse Ox (%) 98 Pulse Rate (60-100 beats/min) 96 Dyspnea Aj Scale (0-10) 0.5 Reported Symptoms Increased Work of Breathing 2nd minute Oxygen Flow Rate (L/min) (L/min) 3 Oxygen Delivery Method Nasal Cannula Pulse Ox (%) 93 Pulse Rate (60-100 beats/min) 94 3rd minute Oxygen Flow Rate (L/min) (L/min) 3 Oxygen Delivery Method Nasal Cannula Pulse Ox (%) 92 Pulse Rate (60-100 beats/min) 96 4th minute Oxygen Flow Rate (L/min) (L/min) 3 Oxygen Delivery Method Nasal Cannula Pulse Ox (%) 92 Pulse Rate (60-100 beats/min) 96 5th minute Oxygen Flow Rate (L/min) (L/min) 3 Oxygen Delivery Method Nasal Cannula Pulse Ox (%) 92 Pulse Rate (60-100 beats/min) 100 6th minute Oxygen Flow Rate (L/min) (L/min) 3 Oxygen Delivery Method Nasal Cannula Pulse Ox (%) 93 Pulse Rate (60-100 beats/min) 99 Dyspnea Aj Scale (0-10) 2 Exertion Aj Scale (6-20) 11 Post-test Oxygen Flow Rate (L/min) (L/min) 3 Oxygen Delivery Method Nasal Cannula Pulse Ox (%) 93 Pulse Rate (60-100 beats/min) 85 Full Laps Walked 12 Partial Lap, Number of Tiles Walked 32 Total Distance Walked (ft) 740 02/03/21 11:51 Cardiopulmonary Services by Chio Myles Pt was placed on 3 lpm pulse dose with her own tank at 1 minute. Remainder of walk on 3 lpm pulse dose. Initialized on 02/03/21 11:51 - END OF NOTE Interpretation Interpretation: The patient was noted to be 93% on room air, but desaturated in the first minute to 88% requiring placement of 3 L nasal cannula. Saturations improved to 98% the patient was able to finish her walk. In total, the patient ambulated 740 feet over the course of 6 minutes on room air with the assistance of a walker. Recommendations Recommendations: The patient requires no supplemental oxygen at rest, but should be using 3 L pulse dose with ambulation.
== END ==
PROVIDERS: PCP Internal Medicine; Referring Provider Internal Medicine Critical Care Medicine; Visit Provider Internal Medicine Critical Care Medicine
DX: J44.9 Chronic obstructive pulmonary disease, unspecified (principal); F17.211 Nicotine dependence, cigarettes, in remission
CPT/HCPCS: 94618

== ENCOUNTER → 2021-02-25 09:56 | Outpatient (CLI) | payer MEDICARE, MEDICAID, SELFPAY ==
[2021-01-16 11:07] VITALS: BMI 31.2
[2021-01-19 13:12] VITALS: BMI 31.2
--- NOTE | 2021-02-26 10:04 | PFT ---
INTRODUCTION: The patient is a 65-year-old female that presents for pulmonary function studies secondary to a diagnosis of tobacco dependency. Respiratory therapy reports good patient effort. Bronchodilators were used during testing. INTERPRETATION: Forced expiration spirometry demonstrates the presence of a moderately severe large airways obstructive ventilatory defect. There was no significant response to aerosolized bronchodilators. Spirograms are of good quality but do not plateau indicating slow emptying of the lungs. Body plethysmography was performed and revealed a decreased TLC to 3.31 L, 75% of predicted, indicative of a mild restrictive ventilatory impairment. Diffusing capacity by single breath CO is reduced at 38% of predicted. IMPRESSION: Irreversible moderately severe mixed ventilatory defect with symmetric reduction in diffusing capacity.
== END ==
PROVIDERS: PCP Internal Medicine; Referring Provider Internal Medicine Critical Care Medicine; Visit Provider Internal Medicine Critical Care Medicine
DX: J44.9 Chronic obstructive pulmonary disease, unspecified (principal); F17.211 Nicotine dependence, cigarettes, in remission
CPT/HCPCS: 94060; 94726; 94729

== ENCOUNTER → 2021-03-16 10:46 | Outpatient (CLI) | payer MEDICARE, MEDICAID, SELFPAY ==
[2021-02-27 14:19] VITALS: BMI 31.2
--- NOTE | 2021-03-16 10:49 | RAD_ITS ---
STUDY: X-RAY - LUMBAR SPINE REASON FOR EXAM: Female, 65 years old. Low back pain TECHNIQUE: 3 view(s) of the lumbar spine were obtained. COMPARISON: None FINDINGS: Normal lumbar lordosis. There is a mild levoscoliosis of the lumbar spine. Minimal anterior listhesis of L4 on L5. Mild anterior listhesis of the L2-L3 level. There is multi-level degenerative disc disease with multi-level disc space narrowing. Facet joint osteoarthritis. An InterStim device is seen in the right hemipelvis. RAD/Lumbar Spine 2 or 3 Views IMPRESSION: Degenerative changes of the spine, as detailed above. Electronically Signed: Wilfred De La Cruz MD at 11:12 EDT , Service support ,
== END ==
PROVIDERS: PCP Internal Medicine; Referring Provider Physician Assistant; Visit Provider Physician Assistant
DX: M54.5 Low back pain (principal); G89.29 Other chronic pain; M54.2 Cervicalgia
CPT/HCPCS: 72100

== ENCOUNTER → 2021-05-18 11:45 | Outpatient (CLI) | payer MEDICARE, MEDICAID, SELFPAY ==
--- NOTE | 2021-05-18 11:48 | CT_ITS ---
STUDY: CT LUMBAR SPINE WITH INTRATHECAL CONTRAST (LUMBAR CT MYELOGRAM) REASON FOR EXAM: Female, [address] myelogram RADIATION DOSAGE (If Supplied By Facility): CTDIvol = ( 18.57 ) mGy, DLP = ( 469.94 ) mGycm TECHNIQUE: Transaxial images were obtained from the L1 vertebra through the S1 vertebrae, following intrathecal administration of 10 ml of ISOVUE-M 200 contrast material, performed by Dr. Dorothy POWERS. Please refer to this physicians technical notes for procedural details. Coronal and sagittal reconstructions were obtained. Individualized dose optimization techniques were used for this CT. COMPARISON: Comparison is made with prior myelogram done earlier today as well as prior CT scan lumbar spine dated 10/19/2019. FINDINGS: Normal lumbar lordosis. There is no substantial scoliosis. Normal vertebrae of the lumbar spine. There is dependent layering of contrast material in the distal thecal sac. The conus medullaris terminates in a normal position at the L1-L2 level. There is no demonstrated cauda equina nerve root abnormality or intraspinal mass. L1-2: Normal endplates. Normal disc height and morphology. Normal bilateral facet joints. Normal central canal and bilateral lateral recesses. Normal bilateral intervertebral neural foramina. L2-3: Marked degree of disc space narrowing and disc degeneration. Moderate degree of central canal stenosis due to central disc bulge. There is evidence of facet joint osteoarthritis and hypertrophy and hypertrophy of the ligamentum flavum. Mild degree of central canal stenosis and bilateral neural foraminal stenosis. L3-4: Mild degree of disc space narrowing. Moderate degree of central canal stenosis due to central diffuse posterior disc bulge as well as hypertrophy of the ligamenta flava and facet joint. No significant neural foraminal stenosis is seen. L4-5: Minimal degree of anterior listhesis of L4 on L5. Marked degree of disc space narrowing and disc degeneration. Moderate to marked degree of central canal stenosis due to a combination of the diffuse posterior disc bulge and hypertrophy of the ligamenta flava and anterior listhesis. L5-S1: Normal endplates. Normal disc height and morphology. Normal bilateral facet joints. Normal central canal and bilateral lateral recesses. Normal bilateral intervertebral neural foramina. Normal visualized sacroiliac joints. Normal visualized paraspinous soft tissue structures. CT/Spine Lumbar WITH Contrast IMPRESSION: Multiple areas of spinal stenosis as described. Electronically Signed: Wilfred De La Cruz MD at 14:45 EDT , Service support ,
[2021-05-18 12:30] VITALS: BP 124/85; PULSE 57; RESP 18; TEMP 37; O2SAT 96; BMI 32.5
--- NOTE | 2021-05-18 12:50 | RAD_ITS ---
PROCEDURE: LUMBAR MYELOGRAM DATE OF EXAMINATION: 05/18/2021. INDICATION: Female, 65 years old. Low back pain. PHYSICIAN: Wilfred De La Cruz M.D. CONSENT: The patient''s history and physical findings were reviewed. The lumbar myelogram procedure was discussed with the patient including possible complications such as infection and bleeding as well as benefits prior to signing a consent. SEDATION: Local anesthesia with 3 mL of 1% lidocaine was used. FLUOROSCOPY TIME (if supplied): (1:29) minutes/seconds Injection Information: 10 cc''s of M2 100 Number of images obtained: 5 TECHNIQUE: Digital fluoroscopy was used to identify a safe approach for the lumbar myelogram. The back was prepped and draped in usual fashion. Local anesthesia was utilized. Under fluoroscopic guidance a 22-gauge spinal needle was inserted into the spinal canal at the L3-L4 level. Clear spinal fluid was seen. 10 mL of Isovue 200 M was injected into the spinal canal. Multilevel disc space narrowing and multilevel marked degree of spinal stenosis. A CT scan will follow. RAD/Lumbar Myelogram IMPRESSION: Lumbar myelogram demonstrating multilevel extradural defects and spinal stenosis. The patient tolerated the procedure well. A CT scan will follow. Electronically Signed: Wilfred De La Cruz MD at 15:20 EDT , Service support ,
[2021-05-18] MEDS: Lidocaine 2% (5ml sdv) 5 ML VIAL.MPF INFILT (12:53)
[2021-05-18 14:11] VITALS: BP 143/93; PULSE 84; RESP 18; O2SAT 97
== END | disposition home or self-care (01) ==
PROVIDERS: PCP Internal Medicine; Referring Provider Orthopaedic Surgery; Visit Provider Orthopaedic Surgery
DX: M48.061 Spinal stenosis, lumbar region without neurogenic claudication (principal)
CPT/HCPCS: 62304; 72132; Q9965

== ENCOUNTER 2021-05-23 15:48 | Inpatient (IN) | payer MEDICARE, MEDICAID, SELFPAY ==
[2021-05-23] VITALS (9 sets, daily range): BP systolic 133–177; BP diastolic 78–88; PULSE 81–97; RESP 18–24; TEMP 36.6–37.1; O2SAT 91–98; BMI 32.5; BMI 30.9
--- NOTE | 2021-05-23 16:13 | EKG12_ITS ---
Test Reason : SOB Blood Pressure : / mmHG Vent. Rate : 098 BPM Atrial Rate : 098 BPM P-R Int : 140 ms QRS Dur : 076 ms QT Int : 326 ms P-R-T Axes : 073 060 058 degrees QTc Int : 416 ms Normal sinus rhythm Low voltage QRS (Limb Leads) Confirmed by MARYANNE POWERS, NURIA ([id number]), book editor KINGS SAAVEDRA ([id number]) on 05/25/2021 1:23:30 PM Referred By: Jake Arce Confirmed By:NURIA MADDEN MD
--- NOTE | 2021-05-23 16:14 | EDS_ITS ---
HPI History of Present Illness Chief Complaint: Shortness of Breath Informant: patient Narrative Narrative: 65-year-old female presenting with shortness of breath which started yesterday. She complains of shortness of breath and cough. Shortness of breath is worsened with exertion. She complains of chest tightness. She has a history of COPD and wears 3 L home O2 oxygen. She is vaccinated for Covid. She denies sick contacts. Prior similar symptoms: Yes PFSH PFS Medical History Anxiety and depression Arthritis COPD (chronic obstructive pulmonary disease) Cough due to bronchospasm Degenerative lumbar spinal stenosis Dyspnea on exertion GERD (gastroesophageal reflux disease) Hypertension Kidney stones Oral thrush PTSD (post-traumatic stress disorder) Home Medications albuterol sulfate 1 - 2 puff INHALATION Q4H PRN PRN #1 inhaler 09/29/17 [Rx Last Taken 01/08/21] prazosin 1 mg PO DAILY 09/29/17 [History Last Taken 01/08/21] lisinopril 20 mg-hydrochlorothiazide 25 mg tablet 1 tab PO DAILY 09/23/20 [History Last Taken 01/08/21] sertraline 100 mg tablet 200 mg PO DAILY tab 10/23/20 [History Last Taken 01/08/21] amlodipine 5 mg PO DAILY 01/06/21 [History Last Taken 01/08/21] aripiprazole 20 mg PO DAILY 01/06/21 [History Last Taken 01/08/21] esomeprazole magnesium 20 mg PO DAILY 01/06/21 [History Last Taken 01/08/21] prazosin 2 mg PO QHS 01/06/21 [History Last Taken 01/08/21] Pulse oximeter #1 ea 02/05/21 [Rx Last Taken Unknown] blood pressure monitor #1 ea 02/05/21 [Rx Last Taken Unknown] walker #1 ea 03/24/21 [Rx Last Taken Unknown] azelastine-fluticasone 137 mcg-50 mcg/spray nasal spray 1 spray INTRANASAL BID #23 g 05/05/21 [Rx Last Taken Unknown] bupropion HCl 150 mg 24 hr tablet, extended release 300 mg PO DAILY tab 05/05/21 [History Last Taken Unknown] fluticasone propionate 115 mcg-salmeterol 21 mcg/actuation HFA inhaler 2 inh INHALATION BID #12 g 05/05/21 [Rx Last Taken Unknown] Allergy/AdvReac Type Severity Reaction Status Date / Time Sulfa (Sulfonamide AdvReac Nausea Verified 05/05/21 08:49 Antibiotics) Family History Mother Diabetes Hypertension Breast cancer Father Heart disease Hypertension Myocardial infarction, Onset Age: 46 Surgical History History of History of D&C History of hand surgery History of hysterectomy Social History Smoking Status: Former smoker quit date: 01/03/21 Tobacco: How many years used: 36 alcohol intake: never substance use type: does not use what type of physical activity do you participate in: none ROS ROS ED Constitutional Constitutional ED: Denies fever(s) Eyes Eyes: Denies change in vision ENT ENT ED: Denies rhinorrhea or sore throat Cardiovascular Cardiovascular: Denies chest pain or palpitations Respiratory/Chest Respiratory/Chest: Reports cough, dyspnea and dyspnea on exertion Gastrointestinal Gastrointestinal: Denies abdominal pain, diarrhea, nausea or vomiting Genitourinary Genitourinary ED: Denies dysuria Musculoskeletal Musculoskeletal: Denies myalgias Integumentary Denies rash Neurologic Neurologic: Denies headache(s) Psychiatric Psychiatric: Denies suicidal thoughts EXAM Physical Exam Const Vital Signs: 05/23/21 15:48 05/23/21 16:33 05/23/21 16:40 Temperature 98 F Temperature Source Temporal Pulse Rate 97 Respiratory Rate 24 H Respiratory Effort Short of Breath Respiratory Depth Normal Respiratory Pattern Blood Pressure 177/78 H Blood Pressure Mean 111 Pulse Ox 91 Oxygen Delivery Method Nasal Cannula Nasal Cannula Oxygen Flow Rate (L/min) 3 3 05/23/21 17:19 05/23/21 18:08 Temperature Temperature Source Pulse Rate 89 92 Respiratory Rate 21 H 24 H Respiratory Effort Respiratory Depth Respiratory Pattern Tachypnea Blood Pressure 133/84 H Blood Pressure Mean 100 Pulse Ox 95 Oxygen Delivery Method Nasal Cannula Oxygen Flow Rate (L/min) 3 Positive well nourished and well developed General Appearance ED: well developed HEENT Reports normocephalic and head/scalp atraumatic Eyes PERRL and EOMs intact bilaterally Neck supple General: Negative for tenderness Chest Wall inspection of chest normal Resp Auscultation: wheezes and diminished lung sounds Cardio regular rate and regular rhythm GI non-tender and non-distended Palpation: soft; Negative for guarding or rebound tenderness present no CVA tenderness Extremity normal to inspection General Extremety ED: Negative for edema General Extremity: Negative for edema Neuro oriented x3 Sensorium / Orientation: alert Psych mental status grossly normal MDM MDM MDM Narrative Medical decision making narrative: Patient was given albuterol, Atrovent aerosols. Covid is negative. Chest x-ray read by myself and radiologist shows no acute process. EKG is sinus rhythm rate of 98 with no acute ischemic changes. On reevaluation patient has some improvement of her symptoms, she continues to have wheezing bilaterally. With ambulation her pulse ox drops to 85% on 3 L. She was given Solu-Medrol IV. Discussed with hospitalist for admission. Lab Data Attestation: I reviewed the patient's lab results. Labs: Laboratory Results - last 24 hr 05/23/21 05/23/21 16:27 16:27 WBC 11.8 H RBC 6.02 H Hgb 17.3 H Hct 52.9 H MCV 87.9 MCH 28.7 MCHC 32.7 RDW Std Deviation 47.9 H RDW Coeff of Ronny 14.8 H Plt Count 328 MPV 8.2 Immature Gran % (Auto) 0.400 Neut % (Auto) 84.7 H Lymph % (Auto) 7.6 L [place] % (Auto) 5.8 Eos % (Auto) 1.2 Baso % (Auto) 0.3 Absolute Neuts (auto) 10.0 H Absolute Lymphs (auto) 0.90 Nucleated RBC % 0 Sodium 132 L Potassium 3.7 Chloride 99 Carbon Dioxide 27.0 Anion Gap 6 BUN 14 Creatinine 0.88 Estim Creat Clear Calc 49.06 Est GFR (MDRD) Af Amer 82 Est GFR (MDRD) Non-Af 68 BUN/Creatinine Ratio 15.9 Glucose 103 Calcium 9.8 Troponin I High Sens 9 Radiography Chest X-Ray - ED: 1 View, Read by ED Physician and Read by Radiologist Diagnostic Testing: Radiology Impression Chest X-Ray 05/23/21 16:36 IMPRESSION: Stable, nonacute portable x-ray examination of the chest. Electronically Signed: Rocky Medrano MD (Brooks) at 17:02 EDT , Service support , EKG Initial EKG: Attestation: I personally reviewed and interpreted this EKG as follows: Interpretation: Sinus Rhythm and No Acute Injury Pattern Discharge Plan Dx/Rx/DC Orders Clinical Impression: COPD exacerbation Disposition Disposition: Acute Care Hospital [facility]
--- NOTE | 2021-05-23 16:36 | RAD_ITS ---
STUDY: X-RAY CHEST REASON FOR EXAM: Female, 65 years old. sob TECHNIQUE: AP COMPARISON: 01/09/2021 FINDINGS: EKG leads project over the chest. There are interstitial fibrotic changes of the lungs. No airspace consolidation. There is no demonstrated pleural abnormality. Normal size heart. Normal mediastinum and magui. Normal visualized pulmonary arteries. There is atherosclerotic calcification of the aortic arch with tortuosity. No acute bony process. There is no demonstrated abnormality of the visualized soft tissue structures of the upper abdomen. RAD/Chest 1 View (Portable) IMPRESSION: Stable, nonacute portable x-ray examination of the chest. Electronically Signed: Rocky Medrano MD (Brooks) at 17:02 EDT , Service support ,
[2021-05-23 16:38] LABS: Basophil# 0.03 X10^3/uL; Basophil% 0.3 % (0-1); Eosinophil# 0.14 X10^3/uL; Eosinophils% 1.2 % (0-5); Hematocrit 52.9 % (37-47); Hemoglobin 17.3 g/dL (12.0-15.0); Lymphocyte % 7.6 % (19-41); Mean Corp Hgb Conc 32.7 g/dL (32-36); Mean Corpuscular Hgb 28.7 pg (27.0-32.0); Mean Corpuscular Volume 87.9 fL (81-99); Mean Platelet Vol. 8.2 fl (6.2-12.0); Monocyte# 0.68 X10^3/uL; Monocyte% 5.8 % (0-10); NRBC Flagged by Analyzer 0 % (0-5); Neutrophil # 9.98 X10^3/uL (2.7-7.7); Neutrophil % 84.7 % (47-70); Platelet Count 328 K/mm3 (150-450); RBC Distribution Width CV 14.8 % (11.6-14.6); RBC Distribution Width SD 47.9 fl (35.1-43.9); Red Blood Count 6.02 M/mm3 (4.2-5.4); White Blood Count 11.8 K/mm3 (4.4-11.0)
[2021-05-23] MEDS: Ipratropium/Albuterol Sulfate 3 ML AMPUL.NEB INHALATION ×2 (16:55→22:15)
[2021-05-23] MEDS: Albuterol 2.5 MG/3 ML VIAL.NEB. INHALATION ×3 (16:55)
[2021-05-23 17:08] LABS: Anion Gap 6 (5-15); BUN 14 mg/dL (7-18); BUN/Creat Ratio 15.9 RATIO (10-20); Calcium,Total 9.8 mg/dL (8.5-10.1); Chloride 99 mmol/L (98-107); Creatinine, Serum 0.88 mg/dL (0.55-1.02); EST Glomerular Filtration Rate 68 mL/min (>60); Est Glom Filt Rate - Afr Amer 82 mL/min (>60); Estimated Creatinine Clearance 49.06 ml/min; Glucose 103 mg/dL (74-106); Potassium 3.7 mmol/L (3.5-5.1); Sodium Level 132 mmol/L (136-145); Troponin-I HS 9 pg/mL (3.0-54.0)
[2021-05-23] MEDS: MethylPREDNISolone 125 MG/2 ML Vial IV (18:33)
--- NOTE | 2021-05-23 18:43 | PCM.HP.STD ---
HPI - General General Date of Admission: 05/23/21 HPI Narrative MAX TOM, is a 65 F with multiple comorbidities including COPD on 3 L of home oxygen came to ER with shortness of breath wheezing for 1 week. Her symptoms really got worse for past 2 days along with severe cough, chest tightness and wheezing. Denies radiation of the chest tightness or pressure. Denies fever or chills. Troponin high-sensitivity negative. Chest x-ray shows nonacute. Twelve-lead EKG shows normal sinus rhythm at [address]-T changes suggestive of ischemia. Previous EKG of December 2020 shows normal sinus rhythm similar. Patient did not had improvement with IV Solu-Medrol and bronchodilator therefore admitted The patient is vaccinated with Pfizer in the month of December. [facility] Medical History Anxiety and depression Arthritis COPD (chronic obstructive pulmonary disease) Cough due to bronchospasm Degenerative lumbar spinal stenosis Dyspnea on exertion GERD (gastroesophageal reflux disease) Hypertension Kidney stones Oral thrush PTSD (post-traumatic stress disorder) Home Medications albuterol sulfate 1 - 2 puff INHALATION Q4H PRN PRN #1 inhaler 09/29/17 [Rx Last Taken 01/08/21] prazosin 1 mg PO DAILY 09/29/17 [History Last Taken 01/08/21] lisinopril 20 mg-hydrochlorothiazide 25 mg tablet 1 tab PO DAILY 09/23/20 [History Last Taken 01/08/21] sertraline 100 mg tablet 200 mg PO DAILY tab 10/23/20 [History Last Taken 01/08/21] amlodipine 5 mg PO DAILY 01/06/21 [History Last Taken 01/08/21] aripiprazole 20 mg PO DAILY 01/06/21 [History Last Taken 01/08/21] esomeprazole magnesium 20 mg PO DAILY 01/06/21 [History Last Taken 01/08/21] prazosin 2 mg PO QHS 01/06/21 [History Last Taken 01/08/21] Pulse oximeter #1 ea 02/05/21 [Rx Last Taken Unknown] blood pressure monitor #1 ea 02/05/21 [Rx Last Taken Unknown] walker #1 ea 03/24/21 [Rx Last Taken Unknown] azelastine-fluticasone 137 mcg-50 mcg/spray nasal spray 1 spray INTRANASAL BID #23 g 05/05/21 [Rx Last Taken Unknown] bupropion HCl 150 mg 24 hr tablet, extended release 300 mg PO DAILY tab 05/05/21 [History Last Taken Unknown] fluticasone propionate 115 mcg-salmeterol 21 mcg/actuation HFA inhaler 2 inh INHALATION BID #12 g 05/05/21 [Rx Last Taken Unknown] Allergy/AdvReac Type Severity Reaction Status Date / Time Sulfa (Sulfonamide AdvReac Nausea Verified 05/05/21 08:49 Antibiotics) Family History Mother Diabetes Hypertension Breast cancer Father Heart disease Hypertension Myocardial infarction, Onset Age: 46 Surgical History History of History of D&C History of hand surgery History of hysterectomy Social History Smoking Status: Former smoker quit date: 01/03/21 Tobacco: How many years used: 36 alcohol intake: never substance use type: does not use what type of physical activity do you participate in: none ROS ROS Narrative Constitutional: Reports fatigue and weakness, shortness of breath and cough HEENT: Reports systems reviewed and no addt'l complaints, except as documented Respiratory/Chest: As mentioned in HPI. Has chronic heart murmur Gastrointestinal: Denies coffee ground emesis, hematemesis or vomiting Genitourinary: Denies burning urination or new urinary tract symptoms Musculoskeletal: Reports joint pain and limited range of motion Neurologic: Denies seizure-like activity skin: No ulcer. No rash Endocrinology: Reports systems reviewed and no addt'l complaints, except as documented Hematologic/Lymphatic: Reports systems reviewed and no addt'l complaints, except as documented Psychiatric: PTSD, anxiety Rest 12 ROS are negative except as mentioned in HPI Vital Signs Vital Signs Vital Signs: 05/23/21 15:48 05/23/21 16:33 05/23/21 16:40 Temperature 98 F Temperature Source Temporal Pulse Rate 97 Respiratory Rate 24 H Respiratory Effort Short of Breath Respiratory Depth Normal Respiratory Pattern Blood Pressure 177/78 H Blood Pressure Mean 111 Pulse Ox 91 Oxygen Delivery Method Nasal Cannula Nasal Cannula Oxygen Flow Rate (L/min) 3 3 05/23/21 17:19 05/23/21 18:08 05/23/21 18:32 Temperature 98.7 F Temperature Source Temporal Pulse Rate 89 92 87 Respiratory Rate 21 H 24 H 18 Respiratory Effort Respiratory Depth Respiratory Pattern Tachypnea Blood Pressure 133/84 H 147/86 H Blood Pressure Mean 100 106 Pulse Ox 95 95 Oxygen Delivery Method Nasal Cannula Nasal Cannula Oxygen Flow Rate (L/min) 3 3 Weight Weight: 178 lb Body Mass Index (BMI) 32.5 Physical Exam Narrative General: Alert, Oriented x3, Cooperative, short of breath HEENT: Atraumatic, PERRLA, EOMI, Normocephalic Oral: No Gingival or Mucosal Lesions/ Ulcerations Neck: Supple, No JVD, Negative Carotid Bruits Lungs: Air entry diminished in bilateral lung bases. Bilateral coarse wheezing and bronchial breath sound. Cardiovascular: Sinus rhythm, normal S1, Normal S2, LLSB systolic murmur Abdomen: Bowel Sounds Present, Soft, Non Tender, Non-Distended : No renal angle tenderness. No suprapubic tenderness. Extremities: No edema, Capillary Refill Less than 3 Seconds Skin: No rashes, No breakdown Musculoskeletal: No Tenderness to Palpation of Joints or Extremities Neurological: Cranial nerves II-XII grossly intact, DTR 2+/4 and Symmetrical, Neuro grossly intact Psych/Mental Status: Appropriate. Results Lab / Micro Data Result Diagrams: 05/23/21 16:27 05/23/21 16:27 Labs: Laboratory Results - last 24 hr 05/23/21 16:27: WBC 11.8 H, RBC 6.02 H, Hgb 17.3 H, Hct 52.9 H, MCV 87.9, MCH 28.7, MCHC 32.7, RDW Std Deviation 47.9 H, RDW Coeff of Ronny 14.8 H, Plt Count 328, MPV 8.2, Immature Gran % (Auto) 0.400, Neut % (Auto) 84.7 H, Lymph % (Auto) 7.6 L, [place] % (Auto) 5.8, Eos % (Auto) 1.2, Baso % (Auto) 0.3, Absolute Neuts (auto) 10.0 H, Absolute Lymphs (auto) 0.90, Nucleated RBC % 0 05/23/21 16:27: Sodium 132 L, Potassium 3.7, Chloride 99, Carbon Dioxide 27.0, Anion Gap 6, BUN 14, Creatinine 0.88, Estim Creat Clear Calc 49.06, Est GFR (MDRD) Af Amer 82, Est GFR (MDRD) Non-Af 68, BUN/Creatinine Ratio 15.9, Glucose 103, Calcium 9.8, Troponin I High Sens 9 Micro: Microbiology 05/23/21 16:20 Nasal Secretion SARS-CoV-2 Antigen (Rapid) - Final Radiology Impression Chest X-Ray 05/23/21 16:36 IMPRESSION: Stable, nonacute portable x-ray examination of the chest. Electronically Signed: Rocky Medrano MD (Brooks) at 17:02 EDT , Service support , Assessment & Plan Assessment/Plan (1) COPD exacerbation: PLAN: 1. COPD exacerbation: Patient is admitted on MedSur on telemetry. Started on DuoNeb bronchodilator, IV Solu-Medrol, Mucinex, incentive spirometry, chest physiotherapy. COVID-19 rapid antigen negative. Sputum culture and respiratory panel ordered. Chest x-ray no acute infiltrates. Patient had last pulmonary clinic visit in May 05, 2021. She is on Advair and oxygen 3 L/min at home. Last PFT on February 26, 2021 shows a reversible moderately severe mixed ventilatory defect with symmetrical reduction in DLCO 38% of predicted. TLC 75% of predicted, indicating mild restrictive ventilatory impairment. She was last admitted in December 2020 for COPD exacerbation 2. Chronic hypoxic respiratory failure: She is still on 3 L but she is very short of breath and dyspneic 3. Hypertension: Blood pressure is controlled. Home medications continued with holding parameters. 4. GERD: On PPI 5. Depression: Patient on omeprazole bupropion VTE prophylaxis: Lovenox 40 subcu daily Living will/advanced directive/end of life care: Patient does not have living will or advanced directive. After discussion of benefits/risks procedures involved with full code, DNR CC arrest and DNR CC, the patient patient is very certain for no intubation, ventilator or CPR. DNR CCA with no intubation Patient does not want artificial life support including intubation, tube feed, ventilator and/chest compression, central venous catheter, vasopressor and DC shock if needed Total time spent in [id number] encounter in discussion of advanced directive 16 minutes. Charges/Coding Visit Charges Inpatient E&M: 15381 Init Hosp L3 Procedures Hospitalists Procedures: 55452 Advncd Care Plan 30 Min
[2021-05-23 18:59] LABS: Magnesium 1.7 mg/dL (1.6-2.6)
[2021-05-23] MEDS: 0.9% Normal Saline 1,000 ML 100 ML IV (21:32)
[2021-05-23] MEDS: Enoxaparin 40 MG/0.4 ML Syringe SC (21:32)
[2021-05-23] MEDS: guaiFENesin/D-Methorphan TAB.SR.12H 1 TABLET PO (21:33)
[2021-05-23] MEDS: Doxazosin 1 MG Tablet 1.5 MG PO (21:33)
[2021-05-23] MEDS: Doxycycline 100 MG CAPSULE PO (21:33)
[2021-05-24 02:25] VITALS: BP 118/85; PULSE 64; RESP 20; TEMP 36.6; O2SAT 96
[2021-05-24] MEDS: Ipratropium/Albuterol Sulfate 3 ML AMPUL.NEB INHALATION ×2 (03:19→07:51)
[2021-05-24 03:22] VITALS: PULSE 95; RESP 18
[2021-05-24 06:51] LABS: Absolute Lymphocyte Count 0.33 X10^3/uL (0.83-4.51); Absolute Neutrophil Count 7.8 X10^3/uL (2.0-7.7); Basophil# 0.02 X10^3/uL; Basophil% 0.2 % (0-1); Hematocrit 50.7 % (37-47); Hemoglobin 16.2 g/dL (12.0-15.0); Lymphocyte # 0.33 X10^3/ul (0.83-4.51); Mean Corpuscular Hgb 28.1 pg (27.0-32.0); Mean Platelet Vol. 8.3 fl (6.2-12.0); Monocyte# 0.06 X10^3/uL; Monocyte% 0.7 % (0-10); NRBC Flagged by Analyzer 0 % (0-5); Neutrophil # 7.84 X10^3/uL (2.7-7.7); Neutrophil % 94.5 % (47-70); POSITIVE DIFFERENTIAL YES; Platelet Count 265 K/mm3 (150-450); RBC Distribution Width CV 14.6 % (11.6-14.6); RBC Distribution Width SD 46.7 fl (35.1-43.9); Red Blood Count 5.76 M/mm3 (4.2-5.4); White Blood Count 8.3 K/mm3 (4.4-11.0)
[2021-05-24 07:04] LABS: Differential Indicated SCAN CRITERIA MET
[2021-05-24 07:22] LABS: Anion Gap 7 (5-15); BUN 16 mg/dL (7-18); BUN/Creat Ratio 19.6 RATIO (10-20); Calcium,Total 8.8 mg/dL (8.5-10.1); Chloride 98 mmol/L (98-107); Creatinine, Serum 0.82 mg/dL (0.55-1.02); EST Glomerular Filtration Rate 74 mL/min (>60); Est Glom Filt Rate - Afr Amer 90 mL/min (>60); Estimated Creatinine Clearance 52.65 ml/min; Glucose 169 mg/dL (74-106); Sodium Level 133 mmol/L (136-145)
--- NOTE | 2021-05-24 07:30 | PN.HOSP_ITS ---
Subjective Subjective Patient is a 65-year-old lady with underlying history of COPD admitted with progressive shortness of b Objective Data Objective Data Vital Signs: Vital Signs Temp Pulse Resp BP Pulse Ox 97.9 F 95 18 118/85 H 96 05/24/21 02:25 05/24/21 03:22 05/24/21 03:22 05/24/21 02:25 05/24/21 02:25 Oxygen Flow Rate (L/min) 3 Oxygen Delivery Method Nasal Cannula Weight: 76.8 kg Body Mass Index (BMI) 30.9 Lab / Micro Data Result Diagrams: 05/24/21 06:30 05/24/21 06:30 Labs: Laboratory Results - last 24 hr 05/23/21 16:27: WBC 11.8 H, RBC 6.02 H, Hgb 17.3 H, Hct 52.9 H, MCV 87.9, MCH 28.7, MCHC 32.7, RDW Std Deviation 47.9 H, RDW Coeff of Ronny 14.8 H, Plt Count 328, MPV 8.2, Immature Gran % (Auto) 0.400, Neut % (Auto) 84.7 H, Lymph % (Auto) 7.6 L, [place] % (Auto) 5.8, Eos % (Auto) 1.2, Baso % (Auto) 0.3, Absolute Neuts (auto) 10.0 H, Absolute Lymphs (auto) 0.90, Nucleated RBC % 0 05/23/21 16:27: Sodium 132 L, Potassium 3.7, Chloride 99, Carbon Dioxide 27.0, Anion Gap 6, BUN 14, Creatinine 0.88, Estim Creat Clear Calc 49.06, Est GFR (MDRD) Af Amer 82, Est GFR (MDRD) Non-Af 68, BUN/Creatinine Ratio 15.9, Glucose 103, Calcium 9.8, Troponin I High Sens 9 05/23/21 18:04: Magnesium 1.7 05/24/21 06:30: WBC 8.3, RBC 5.76 H, Hgb 16.2 H, Hct 50.7 H, MCV 88.0, MCH 28.1, MCHC 32.0, RDW Std Deviation 46.7 H, RDW Coeff of Ronny 14.6, Plt Count 265, MPV 8.3, Immature Gran % (Auto) 0.600, Neut % (Auto) 94.5 H, Lymph % (Auto) 4.0 L, [place] % (Auto) 0.7, Eos % (Auto) 0.0, Baso % (Auto) 0.2, Absolute Neuts (auto) 7.8 H, Absolute Lymphs (auto) 0.33 L, Nucleated RBC % 0 05/24/21 06:30: Sodium 133 L, Potassium 4.0, Chloride 98, Carbon Dioxide 28.0, Anion Gap 7, BUN 16, Creatinine 0.82, Estim Creat Clear Calc 52.65, Est GFR (MDRD) Af Amer 90, Est GFR (MDRD) Non-Af 74, BUN/Creatinine Ratio 19.6, Glucose 169 H, Calcium 8.8 Micro: Microbiology 05/23/21 22:30 Mucosa - Nasopharyngeal Respiratory Panel (PCR) - Final 05/23/21 16:20 Nasal Secretion SARS-CoV-2 Antigen (Rapid) - Final Radiography Diagnostic Testing: Radiology Impression Chest X-Ray 05/23/21 16:36 IMPRESSION: Stable, nonacute portable x-ray examination of the chest. Electronically Signed: Rocky Medrano MD (Brooks) at 17:02 EDT , Service support , Physical Exam Narrative GENERAL: cooperative HEENT: Atraumatic; EYES; Anicteric, Normal Conjunctiva NECK; supple, normal thyroid, RESPIRATORY: Diminished to auscultation CARDIOVASCULAR: Regular S1 S2, GI: soft, normoactive bowel sounds, : No Renal angle tenderness; EXTREMITIES: No edema, no clubbing, MUSCULOSKELETAL: no muscle waisting NEURO: Awake; no lateralizing signs. SKIN: No Rash PSYCH; Flat affect Assessment & Plan Assessment/Plan (1) COPD exacerbation: PLAN: Patient is a 65-year-old lady with underlying history of COPD admitted with progressive shortness of breath 1. Acute COPD exacerbation ?Admitted to regular nursing floor managed with supplemental oxygen, bronchodilator treatments and systemic steroids 2. Chronic hypoxic respiratory failure ?Patient is on baseline home oxygen 3. Hypertension - Blood pressure controlled, home medications continued with dose adjustment as needed 4. GERD ?On PPI 5. DVT prophylaxis ?SC Lovenox
[2021-05-24] MEDS: guaiFENesin/D-Methorphan TAB.SR.12H 1 TABLET PO (07:41)
[2021-05-24] MEDS: Enoxaparin 40 MG/0.4 ML Syringe SC (07:41)
[2021-05-24] MEDS: Doxazosin 1 MG Tablet PO (07:41)
[2021-05-24] MEDS: buPROPion (XL) 300 MG TABLET.XL PO (07:41)
[2021-05-24] MEDS: Lisinopril 20 MG Tablet PO (07:42)
[2021-05-24] MEDS: ARIPiprazole 10 MG Tablet 20 MG PO (07:42)
[2021-05-24] MEDS: Doxycycline 100 MG CAPSULE PO (07:42)
[2021-05-24] MEDS: Pantoprazole Sodium 20 MG Tablet PO (07:42)
[2021-05-24] MEDS: Sertraline 100 MG Tablet 200 MG PO (07:43)
[2021-05-24] MEDS: hydroCHLOROthiazide 25 MG Tablet PO (07:44)
[2021-05-24] MEDS: amLODIPine 5 MG Tablet PO (07:44)
[2021-05-24 07:51] VITALS: PULSE 93; RESP 18; O2SAT 90
[2021-05-24 08:27] VITALS: BP 105/60; PULSE 78; RESP 20; TEMP 36.5; O2SAT 96
--- NOTE | 2021-05-24 08:47 | DS.PCM_ITS ---
Providers Date of Admission: 05/23/21 Primary Care Physician: Dr. Rosa Bragg MD Reason For Visit: COPD EXACERBATION Diagnosis Discharge Diagnosis (1) COPD exacerbation: Status: Chronic Code(s): J44.1 - Chronic obstructive pulmonary disease with (acute) exacerbation Medications at Discharge Home Medications albuterol sulfate 1 - 2 puff INHALATION Q4H PRN PRN #1 inhaler 09/29/17 prazosin 1 mg PO DAILY 09/29/17 lisinopril 20 mg-hydrochlorothiazide 25 mg tablet 1 tab PO DAILY 09/23/20 sertraline 100 mg tablet 200 mg PO DAILY tab 10/23/20 amlodipine 5 mg PO DAILY 01/06/21 aripiprazole 20 mg PO DAILY 01/06/21 esomeprazole magnesium 20 mg PO DAILY 01/06/21 prazosin 2 mg PO QHS 01/06/21 Pulse oximeter #1 ea 02/05/21 blood pressure monitor #1 ea 02/05/21 walker #1 ea 03/24/21 azelastine-fluticasone 137 mcg-50 mcg/spray nasal spray 1 spray INTRANASAL BID #23 g 05/05/21 bupropion HCl 150 mg 24 hr tablet, extended release 300 mg PO DAILY tab 05/05/21 fluticasone propionate 115 mcg-salmeterol 21 mcg/actuation HFA inhaler 2 inh INHALATION BID #12 g 05/05/21 azithromycin [Zithromax] 500 mg PO DAILY 3 Days #3 tab 05/24/21 prednisone 40 mg PO DAILY #10 tab 05/24/21 Hospital Course Summary of Care Provided Minutes Spent on Discharge: 35 Hospital Course: Patient is a 65-year-old lady with underlying history of COPD admitted with progressive shortness of breath 1. Acute COPD exacerbation ?Admitted to regular nursing floor managed with supplemental oxygen, bronchodilator treatments and systemic steroids 2. Chronic hypoxic respiratory failure ?Patient is on baseline home oxygen 3. Hypertension - Blood pressure controlled, home medications continued with dose adjustment as needed 4. GERD ?On PPI 5. DVT prophylaxis ?SC Lovenox Physical Exam Narrative GENERAL: cooperative HEENT: Atraumatic; EYES; Anicteric, Normal Conjunctiva NECK; supple, normal thyroid, RESPIRATORY: Diminished to auscultation with occasional wheezes CARDIOVASCULAR: Regular S1 S2, GI: soft, normoactive bowel sounds, : No Renal angle tenderness; EXTREMITIES: No edema, no clubbing, MUSCULOSKELETAL: no muscle waisting NEURO: Awake; no lateralizing signs. SKIN: No Rash PSYCH; Flat affect Weight / BMI Weight Weight: 76.8 kg Body Mass Index (BMI) 30.9 ABG / Lab / Microbiology Data Result Diagrams: 05/24/21 06:30 05/24/21 06:30 Laboratory: Laboratory Results - last 24 hr 05/23/21 16:27: WBC 11.8 H, RBC 6.02 H, Hgb 17.3 H, Hct 52.9 H, MCV 87.9, MCH 28.7, MCHC 32.7, RDW Std Deviation 47.9 H, RDW Coeff of Ronny 14.8 H, Plt Count 328, MPV 8.2, Immature Gran % (Auto) 0.400, Neut % (Auto) 84.7 H, Lymph % (Auto) 7.6 L, [place] % (Auto) 5.8, Eos % (Auto) 1.2, Baso % (Auto) 0.3, Absolute Neuts (auto) 10.0 H, Absolute Lymphs (auto) 0.90, Nucleated RBC % 0 05/23/21 16:27: Sodium 132 L, Potassium 3.7, Chloride 99, Carbon Dioxide 27.0, Anion Gap 6, BUN 14, Creatinine 0.88, Estim Creat Clear Calc 49.06, Est GFR (MDRD) Af Amer 82, Est GFR (MDRD) Non-Af 68, BUN/Creatinine Ratio 15.9, Glucose 103, Calcium 9.8, Troponin I High Sens 9 05/23/21 18:04: Magnesium 1.7 05/24/21 06:30: WBC 8.3, RBC 5.76 H, Hgb 16.2 H, Hct 50.7 H, MCV 88.0, MCH 28.1, MCHC 32.0, RDW Std Deviation 46.7 H, RDW Coeff of Ronny 14.6, Plt Count 265, MPV 8.3, Immature Gran % (Auto) 0.600, Neut % (Auto) 94.5 H, Lymph % (Auto) 4.0 L, [place] % (Auto) 0.7, Eos % (Auto) 0.0, Baso % (Auto) 0.2, Absolute Neuts (auto) 7.8 H, Absolute Lymphs (auto) 0.33 L, Nucleated RBC % 0 05/24/21 06:30: Sodium 133 L, Potassium 4.0, Chloride 98, Carbon Dioxide 28.0, Anion Gap 7, BUN 16, Creatinine 0.82, Estim Creat Clear Calc 52.65, Est GFR (MDRD) Af Amer 90, Est GFR (MDRD) Non-Af 74, BUN/Creatinine Ratio 19.6, Glucose 169 H, Calcium 8.8 Microbiology: Microbiology 05/23/21 22:30 Mucosa - Nasopharyngeal Respiratory Panel (PCR) - Final 05/23/21 16:20 Nasal Secretion SARS-CoV-2 Antigen (Rapid) - Final Radiography Diagnostic Testing: Radiology Impression Chest X-Ray 05/23/21 16:36 IMPRESSION: Stable, nonacute portable x-ray examination of the chest. Electronically Signed: Rocky Medrano MD ([place]) at 17:02 EDT , Service support , D/C Instructions Discharge Diet: No restrictions Discharge Activity: Return to Normal Activity Call your doctor if you observe: Fever of 101 or Higher, Shortness of breath, Fainting spells and Chest pain Meaningful Use Info Meaningful Use Diagnoses (Choose all that apply): None applicable Discharge Plan Admission Admit Date/Time: 05/23/21 18:24 Attending Provider: Saad Cobb Primary Care Provider: Rosa Bragg Instructions Patient Instructions: Discharge Instructions: COPD Discharge Orders/Prescriptions Prescriptions: New prednisone 20 mg tablet 40 mg PO DAILY Qty: 10 RF: 0 azithromycin [Zithromax] 500 mg tablet 500 mg PO DAILY 3 Days Qty: 3 RF: 0 Continued lisinopril-hydrochlorothiazide 20-25 mg tablet 1 tab PO DAILY RF: 0 azelastine-fluticasone 137-50 mcg/spray spray,non-aerosol 1 spray intranasal BID Qty: 23 RF: 6 Advair HFA 115-21 mcg/actuation HFA aerosol inhaler 2 inh inhalation BID Qty: 12 RF: 6 prazosin 1 MG capsule 1 mg PO DAILY RF: 0 albuterol sulfate 1 INHALER inhaler 1 - 2 puff INHALATION Q4H PRN PRN (Reason: Wheezing) Qty: 1 RF: 0 sertraline 100 mg tablet 200 mg PO DAILY RF: 0 amlodipine 5 mg tablet 5 mg PO DAILY RF: 0 prazosin 2 mg capsule 2 mg PO QHS RF: 0 esomeprazole magnesium 20 mg capsule,delayed release(DR/EC) 20 mg PO DAILY RF: 0 aripiprazole 20 mg tablet 20 mg PO DAILY RF: 0 bupropion HCl 150 mg tablet extended release 24 hr 300 mg PO DAILY RF: 0 (DME) blood pressure monitor [Blood Pressure Kit] Kit See Rx Instructions .ROUTE .MEDSUPPLY Qty: 1 RF: 0 (DME) Pulse oximeter See Rx Instructions .Route .MEDSUPPLY Qty: 1 RF: 0 (DME) Ultra-Light Rollator Misc See Rx Instructions .ROUTE .MEDSUPPLY Qty: 1 RF: 0 Referrals / Follow Up: Rosa Bragg MD [Primary Care Provider] - In 1 Week Disposition Disposition (needs filled in before D/C Order can be placed): Home, Self Care Charges/Coding Visit Charges Inpatient E&M: [id number] Disch Hosp
--- NOTE | 2021-05-24 09:33 | PCM.DC ---
Discharge Instructions Diet Discharge Diet: No restrictions Dressing / Incision Call your doctor if you observe: Fever of 101 or Higher, Shortness of breath, Fainting spells and Chest pain Follow Up Care Test Results: Test results from this visit will be discussed in further detail at your follow-up appointment, if applicable. Discharge Plan Admission Admit Date/Time: 05/23/21 18:24 Attending Provider: Saad Cobb Primary Care Provider: Rosa Bragg Instructions Patient Instructions: Discharge Instructions: COPD Discharge Orders/Prescriptions Prescriptions: New prednisone 20 mg tablet 40 mg PO DAILY Qty: 10 RF: 0 azithromycin [Zithromax] 500 mg tablet 500 mg PO DAILY 3 Days Qty: 3 RF: 0 Continued lisinopril-hydrochlorothiazide 20-25 mg tablet 1 tab PO DAILY RF: 0 azelastine-fluticasone 137-50 mcg/spray spray,non-aerosol 1 spray intranasal BID Qty: 23 RF: 6 Advair HFA 115-21 mcg/actuation HFA aerosol inhaler 2 inh inhalation BID Qty: 12 RF: 6 prazosin 1 MG capsule 1 mg PO DAILY RF: 0 albuterol sulfate 1 INHALER inhaler 1 - 2 puff INHALATION Q4H PRN PRN (Reason: Wheezing) Qty: 1 RF: 0 sertraline 100 mg tablet 200 mg PO DAILY RF: 0 amlodipine 5 mg tablet 5 mg PO DAILY RF: 0 prazosin 2 mg capsule 2 mg PO QHS RF: 0 esomeprazole magnesium 20 mg capsule,delayed release(DR/EC) 20 mg PO DAILY RF: 0 aripiprazole 20 mg tablet 20 mg PO DAILY RF: 0 bupropion HCl 150 mg tablet extended release 24 hr 300 mg PO DAILY RF: 0 (DME) blood pressure monitor [Blood Pressure Kit] Kit See Rx Instructions .ROUTE .MEDSUPPLY Qty: 1 RF: 0 (DME) Pulse oximeter See Rx Instructions .Route .MEDSUPPLY Qty: 1 RF: 0 (DME) Ultra-Light Rollator Misc See Rx Instructions .ROUTE .MEDSUPPLY Qty: 1 RF: 0 Referrals / Follow Up: Rosa Bragg MD [Primary Care Provider] - In 1 Week Disposition Disposition (needs filled in before D/C Order can be placed): Home, Self Care
--- NOTE | 2021-05-25 14:42 | CASEMGMT ---
SYDNI VALDIVIA Discharge Follow-up Phone Call: JUVENAL: Korey Strata: 3 Call Date: 05/25/21 Discharge Date: 05/24/21 Time of Call: 1442 Duration: 3 min Admitting Diagnosis: COPD Exacerbation SYDNI VALDIVIA completed follow-up phone call after recent hospitalization. Patient states she is doing ok but having some SOB with ambulation. Patient states that her medications were delivered today and that she has taken them. Patient states she as call PCP office 3 times to schedule follow. SYDNI VALDIVIA encouraged patient to leave message with PCP for follow-up. Patient voiced understanding and had no further questions or concerns.
== END 2021-05-24 10:13 | disposition home or self-care (01) | DRG 191 ==
LOC: ED 18:49 → MS2 18:50
PROVIDERS: Admitting Provider Internal Medicine; Emergency Provider Emergency Medicine; PCP Internal Medicine; Referring Provider Internal Medicine; Visit Provider Internal Medicine
DX: J44.1 Chronic obstructive pulmonary disease with (acute) exacerbation (principal); J96.11 Chronic respiratory failure with hypoxia; Z20.822 Contact with and (suspected) exposure to COVID-19; I10 Essential (primary) hypertension; M19.90 Unspecified osteoarthritis, unspecified site; M48.061 Spinal stenosis, lumbar region without neurogenic claudication; K21.9 Gastro-esophageal reflux disease without esophagitis; F43.10 Post-traumatic stress disorder, unspecified; F32.9 Major depressive disorder, single episode, unspecified; F41.9 Anxiety disorder, unspecified; Z79.899 Other long term (current) drug therapy; Z87.891 Personal history of nicotine dependence
CPT/HCPCS: 36415; 71045; 80048; 83735; 84484; 85025; 87070; 87205; 87426; 87633; 93005; 94640; 94667; 94668; 99285; J7030; A4216

== ENCOUNTER 2021-11-09 21:57 | Outpatient (CLI) | payer MEDICARE, MEDICAID, SELFPAY | END 2021-11-09 23:59 | disposition home or self-care (01) | PROVIDERS: PCP Internal Medicine; Visit Provider Internal Medicine | DX: G47.30 Sleep apnea, unspecified (principal); I10 Essential (primary) hypertension; R06.83 Snoring | CPT/HCPCS: 95810 ==

== ENCOUNTER 2021-11-12 07:57 | Outpatient (CLI) | payer MEDICARE, MEDICAID, SELFPAY ==
[2021-11-12 12:09] LABS: Absolute Lymphocyte Count 1.53 X10^3/uL (0.83-4.51); Absolute Neutrophil Count 10.9 X10^3/uL (2.0-7.7); Basophil# 0.05 X10^3/uL; Basophil% 0.4 % (0-1); Eosinophil# 0.36 X10^3/uL; Eosinophils% 2.6 % (0-5); Hemoglobin 13.4 g/dL (12.0-15.0); Lymphocyte # 1.53 X10^3/ul (0.83-4.51); Lymphocyte % 11.2 % (19-41); Mean Corp Hgb Conc 31.9 g/dL (32-36); Mean Corpuscular Volume 87.7 fL (81-99); Mean Platelet Vol. 8.3 fl (6.2-12.0); Monocyte# 0.66 X10^3/uL; Monocyte% 4.8 % (0-10); NRBC Flagged by Analyzer 0 % (0-5); Neutrophil # 10.89 X10^3/uL (2.7-7.7); Platelet Count 334 K/mm3 (150-450); RBC Distribution Width CV 14.6 % (11.6-14.6); RBC Distribution Width SD 46.8 fl (35.1-43.9); Red Blood Count 4.79 M/mm3 (4.2-5.4); White Blood Count 13.6 K/mm3 (4.4-11.0)
[2021-11-12 12:37] LABS: Vitamin D,25 Hydroxy 12.6 ng/mL
[2021-11-12 12:55] LABS: AST(SGOT) 19 U/L (15-37); Alanine Aminotransfer ALT/SGPT 30 U/L (13-56); Albumin, Serum 3.8 g/dL (3.2-5.0); Alkaline Phosphatase 140 U/L (45-117); Anion Gap 9 (5-15); BUN 23 mg/dL (7-18); BUN/Creat Ratio 21.5 RATIO (10-20); Calcium,Total 9.7 mg/dL (8.5-10.1); Chloride 101 mmol/L (98-107); Cholesterol 208 mg/dL (200); Creatinine, Serum 1.07 mg/dL (0.55-1.02); EST Glomerular Filtration Rate 54 mL/min (>60); Est Glom Filt Rate - Afr Amer 66 mL/min (>60); Glucose 98 mg/dL (74-106); High Density Lipoprotein 95 mg/dL; Potassium 4.5 mmol/L (3.5-5.1); Protein, Total 7.8 g/dL (6.4-8.2); Sodium Level 134 mmol/L (136-145); Thyroid Stim Hormone (TSH) 4.62 uIU/mL (0.358-3.74); Triglycerides 72 mg/dL; Very Low Density Lipoprotein 14 mg/dL (5-40)
[2021-11-12 13:39] LABS: Free T3 2.5 pg/mL (2.18-3.98); T4 Free Direct 1.05 ng/dL (0.76-1.46)
== END 2021-11-12 23:59 | disposition home or self-care (01) ==
LOC: BIMLAB 07:59
PROVIDERS: PCP Internal Medicine; Referring Provider Internal Medicine; Visit Provider Internal Medicine
DX: E55.9 Vitamin D deficiency, unspecified (principal); J43.9 Emphysema, unspecified; J96.11 Chronic respiratory failure with hypoxia; M48.061 Spinal stenosis, lumbar region without neurogenic claudication; K21.9 Gastro-esophageal reflux disease without esophagitis; I10 Essential (primary) hypertension; F41.9 Anxiety disorder, unspecified; F32.9 Major depressive disorder, single episode, unspecified; R79.89 Other specified abnormal findings of blood chemistry; G47.30 Sleep apnea, unspecified
CPT/HCPCS: 36415; 80053; 80061; 82306; 83735; 84439; 84443; 84481; 85025

== ENCOUNTER 2021-12-07 13:46 | Outpatient (CLI) | payer MEDICARE, MEDICAID, SELFPAY ==
--- NOTE | 2021-12-07 14:50 | RAD_ITS ---
STUDY: X-RAY CHEST REASON FOR EXAM: Female, 66 years old. COPD. Chest pain. TECHNIQUE: Frontal and lateral views of the chest. COMPARISON: 05/23/2021. FINDINGS: Stable mild hyperinflation. Atelectasis/scarring at the left base unchanged. There is no demonstrated pleural abnormality. Normal size heart. Normal mediastinum and magui. Normal visualized pulmonary arteries. Aortic tortuosity with calcification unchanged. Stable diffuse mild thoracic spondylosis. Normal visualized ribs, clavicles, and shoulders. There is no demonstrated abnormality of the visualized soft tissue structures of the upper abdomen. RAD/Chest PA and Lateral IMPRESSION: Stable hyperexpansion with no acute or active cardiopulmonary disease. Electronically Signed: Jose Manuel Kaur MD at 10:25 EDT ,
--- NOTE | 2021-12-10 12:33 | EKG12_ITS ---
Test Reason : ROUTINE Blood Pressure : / mmHG Vent. Rate : 085 BPM Atrial Rate : 085 BPM P-R Int : 146 ms QRS Dur : 090 ms QT Int : 358 ms P-R-T Axes : 070 057 071 degrees QTc Int : 426 ms Normal sinus rhythm Septal infarct , age undetermined Abnormal ECG Confirmed by DUKE POWERS, ROBE ([id number]), editor department KINGS SAAVEDRA ([id number]) on 12/10/2021 12:41:36 PM Referred By: JOO Confirmed By:ROBE WALL MD
== END 2021-12-07 23:59 | disposition home or self-care (01) ==
PROVIDERS: PCP Internal Medicine; Visit Provider Physician Assistant
DX: R07.9 Chest pain, unspecified (principal); J43.9 Emphysema, unspecified
CPT/HCPCS: 71046; 93005

== ENCOUNTER 2022-01-03 14:35 | Emergency (ER) | payer MEDICARE, MEDICAID, SELFPAY ==
[2022-01-03 14:37] VITALS: BP 136/86; PULSE 91; RESP 20; TEMP 35.8; O2SAT 89; BMI 33.8
--- NOTE | 2022-01-03 15:40 | RAD_ITS ---
STUDY: X-RAY - LUMBAR SPINE REASON FOR EXAM: Female, 66 years old. back pain TECHNIQUE: 3 view(s) of the lumbar spine were obtained. COMPARISON: 03/16/2021 FINDINGS: Normal lumbar lordosis. There is a levoscoliosis of the lumbar spine. Grade 1 spondylolisthesis L4-L5. There is diffuse demineralization with multi-level endplate spondylosis. There is multi-level degenerative disc disease with multi-level disc space narrowing. There is no demonstrated fracture. Moderate multilevel facet arthropathy. There is atherosclerotic calcification of the abdominal aorta without a demonstrated aneurysm. Neurostimulator device overlies the sacrum. RAD/Lumbar Spine 2 or 3 Views IMPRESSION: Multilevel degenerative disc disease and facet arthropathy. Electronically Signed: Rocky Medrano MD (Brooks) at 16:45 EDT ,
--- NOTE | 2022-01-03 15:42 | ED.VIS.BACK ---
HPI History of Present Illness Chief Complaint: Back Narrative Narrative: 66-year-old female with acute on chronic back pain. Patient states she sees Dr. Vazquez and Dr. Vu. She states that she has had some cortisone injections with pain management but these do not seem to be effective. She saw Dr. Vu on Tuesday who started her on [place]. He apparently called pain management to arrange a follow-up appointment for tomorrow. Patient states that she was doing okay until last night when she started to have acute pain in her lower back. She states this radiates down the back of her legs bilaterally. She denies any new trauma and this occurred when she was laying in bed. She states she has chronic urinary incontinence and she sees urology for this. There is no new component to it. She is having bowel movements. No saddle anesthesia. She did state that Dr. Vu does not want to do surgery on her back due to her COPD. She states she was told that she would never come off the ventilator. [facility] Medical History Anxiety and depression Arthritis COPD (chronic obstructive pulmonary disease) Cough due to bronchospasm Degenerative lumbar spinal stenosis Dyspnea on exertion GERD (gastroesophageal reflux disease) Hypertension Kidney stones Oral thrush PTSD (post-traumatic stress disorder) Home Medications prazosin 1 mg PO DAILY 09/29/17 [History Last Taken 01/08/21] lisinopril 20 mg-hydrochlorothiazide 25 mg tablet 1 tab PO DAILY 09/23/20 [History Last Taken 01/08/21] sertraline 100 mg tablet 200 mg PO DAILY tab 10/23/20 [History Last Taken 01/08/21] amlodipine 5 mg PO DAILY 01/06/21 [History Last Taken 01/08/21] aripiprazole 20 mg PO DAILY 01/06/21 [History Last Taken 01/08/21] esomeprazole magnesium 20 mg PO DAILY 01/06/21 [History Last Taken 01/08/21] prazosin 2 mg PO QHS 01/06/21 [History Last Taken 01/08/21] Pulse oximeter #1 ea 02/05/21 [Rx Last Taken Unknown] blood pressure monitor #1 ea 02/05/21 [Rx Last Taken Unknown] walker #1 ea 03/24/21 [Rx Last Taken Unknown] azelastine-fluticasone 137 mcg-50 mcg/spray nasal spray 1 spray INTRANASAL BID #23 g 05/05/21 [Rx Last Taken Unknown] bupropion HCl 150 mg 24 hr tablet, extended release 300 mg PO DAILY tab 05/05/21 [History Last Taken Unknown] hydrocodone-acetaminophen 5-325mg 5mg-325mg 1 tab PO BID PRN 07/16/21 [History Last Taken Unknown] meloxicam 15 mg tablet 7.5 mg PO DAILY tab 07/16/21 [History Last Taken Unknown] albuterol sulfate 90 mcg/actuation aerosol inhaler 1 - 2 puff INHALATION Q4H PRN PRN #1 inhaler 11/20/21 [Rx Last Taken Unknown] budesonide 160 mcg-glycopyr 9 mcg-formot 4.8 mcg/actuation HFA inhaler 2 inh INHALATION BID 12/07/21 [History Last Taken Unknown] guaifenesin 600 mg tablet, extended release 12 hr 600 mg PO BID 12/07/21 [History Last Taken Unknown] prednisone 10 mg tablet 10 mg PO DAILY #21 tab 12/09/21 [Rx Last Taken Unknown] hydrocodone-acetaminophen 5-325mg 5mg-325mg 1 tab PO Q6H PRN 15 Days #60 tab 01/01/22 [Rx Last Taken Unknown] Allergy/AdvReac Type Severity Reaction Status Date / Time Sulfa (Sulfonamide AdvReac Nausea Verified 01/03/22 14:37 Antibiotics) Family History Mother Diabetes Hypertension Breast cancer Father Heart disease Hypertension Myocardial infarction, Onset Age: 46 Surgical History History of History of D&C History of hand surgery History of hysterectomy Social History Smoking Status: Former smoker quit date: 01/03/21 Tobacco: How many years used: 36 alcohol intake: never substance use type: does not use what type of physical activity do you participate in: none EXAM Physical Exam Const Vital Signs: 01/03/22 14:37 Temperature 96.5 F L Temperature Source Temporal Pulse Rate 91 Respiratory Rate 20 H Blood Pressure 136/86 H Blood Pressure Mean 102 Pulse Ox 89 Oxygen Delivery Method Room Air Positive well nourished and obese General Appearance ED: NAD; Negative for pallor Nutritional Appearance: obese HEENT Reports moist mucous membranes Negative for trauma Eyes PERRL and EOMs intact bilaterally Cardio regular rate and regular rhythm GI normal to inspection, nondistended, normoactive bowel sounds Back/Spine Back/Spine Narrative: Generalized tenderness over the bilateral lumbar paraspinal musculature including the midline. No obvious deformity. Neuro oriented x3 Sensorium / Orientation: alert Motor Exam: strength 5/5 throughout Psych mental status grossly normal Skin no rashes or lesions noted General Skin Exam: Negative for jaundice or pallor MDM MDM MDM Narrative Medical decision making narrative: Patient with acute on chronic back pain. Patient was medicated with Toradol, morphine, Lidoderm patch. I will obtain images of the lumbar spine. No signs of cauda equina syndrome or infectious etiology. Patient pain is improved on reevaluation at 1700. X-ray of the lumbar spine on my interpretation shows degenerative changes without acute fracture or acute pathology. Radiologist agree. Patient has appointment for pain management tomorrow. She is encouraged to make this follow-up. I believe she safe for discharge at this time. Impression: 1. Acute exacerbation of chronic back pain Radiography Diagnostic Testing: Clinical Impression(s) from Imaging Studies Lumbar Spine X-Ray 01/03/22 15:40 IMPRESSION: Multilevel degenerative disc disease and facet arthropathy. Electronically Signed: Rocky Medrano MD (Brooks) at 16:45 EDT Reading Location ID and State: [facility] / [place] , Service support , Discharge Plan Triage Chief Complaint: Back ED Provider: Bill Longo Dx/Rx/DC Orders Prescriptions: No Action lisinopril-hydrochlorothiazide 20-25 mg tablet 1 tab PO DAILY RF: 0 meloxicam 15 mg tablet 7.5 mg PO DAILY RF: 0 hydrocodone-acetaminophen 5-325 mg tablet 1 tab PO BID PRNRF: 0 azelastine-fluticasone 137-50 mcg/spray spray,non-aerosol 1 spray intranasal BID Qty: 23 RF: 6 guaifenesin [Mucinex] 600 mg tablet extended release 12hr 600 mg PO BID RF: 0 Breztri Aerosphere 160-9-4.8 mcg/actuation HFA aerosol inhaler 2 inh inhalation BID RF: 0 hydrocodone-acetaminophen 5-325 mg tablet 1 tab PO Q6H PRN (Reason: pain) 15 Days Qty: 60 RF: 0 prazosin 1 MG capsule 1 mg PO DAILY RF: 0 sertraline 100 mg tablet 200 mg PO DAILY RF: 0 amlodipine 5 mg tablet 5 mg PO DAILY RF: 0 prazosin 2 mg capsule 2 mg PO QHS RF: 0 esomeprazole magnesium 20 mg capsule,delayed release(DR/EC) 20 mg PO DAILY RF: 0 aripiprazole 20 mg tablet 20 mg PO DAILY RF: 0 bupropion HCl 150 mg tablet extended release 24 hr 300 mg PO DAILY RF: 0 (DME) blood pressure monitor [Blood Pressure Kit] Kit See Rx Instructions .ROUTE .MEDSUPPLY Qty: 1 RF: 0 (DME) Pulse oximeter See Rx Instructions .Route .MEDSUPPLY Qty: 1 RF: 0 (DME) Ultra-Light Rollator Misc See Rx Instructions .ROUTE .MEDSUPPLY Qty: 1 RF: 0 albuterol sulfate 90 mcg/actuation HFA aerosol inhaler 1 - 2 puff INHALATION Q4H PRN PRN (Reason: Wheezing) Qty: 1 RF: 0 prednisone 10 mg tablet 10 mg PO DAILY Qty: 21 RF: 0 Primary Care Provider: Rosa Bragg
[2022-01-03] MEDS: Lidocaine 5% Patch 1 PATCH TOPICAL (15:49)
[2022-01-03] MEDS: Ketorolac 15 MG/ML Vial IM (15:49)
[2022-01-03] MEDS: Morphine 4 MG/ML Syringe IM (15:49)
[2022-01-03 17:04] VITALS: BP 141/85
== END 2022-01-03 17:08 | disposition home or self-care (01) ==
PROVIDERS: Emergency Provider Student in an Organized Health Care Education/Training Program; PCP Internal Medicine; Visit Provider Student in an Organized Health Care Education/Training Program
DX: M54.9 Dorsalgia, unspecified (principal); J44.9 Chronic obstructive pulmonary disease, unspecified; G89.29 Other chronic pain; I10 Essential (primary) hypertension; R32 Unspecified urinary incontinence; Z79.52 Long term (current) use of systemic steroids; Z87.891 Personal history of nicotine dependence
CPT/HCPCS: 72100; 96372; 99282

== ENCOUNTER → 2022-01-05 | Outpatient (CLI) | payer MEDICARE, MEDICAID, SELFPAY ==
--- NOTE | 2022-01-05 14:41 | ECHOD_ITS ---
Reason For Study: CHEST PAIN Procedure This was a 2D Doppler, Color Flow transthoracic echocardiogram. The study was technically difficult. Exam performed in department. Left Ventricle Normal LV size. Left ventricular systolic function is normal. The estimated ejection fraction is 70 %. No evidence for diastolic dysfunction. No regional wall motion abnormalities noted. Right Ventricle Normal RV size. Normal systolic function. Atria Normal left atrium. Normal right atrium. No doppler evidence for ASD. Mitral Valve There is no mitral annular calcification. Normal mitral valve. The mitral valve chordae are thickened and/or calcified. Trivial mitral valve insufficiency. Tricuspid Valve Normal tricuspid valve. Trivial tricuspid valve insufficiency. Right ventricular systolic pressure estimated to be 31 mmHg. Aortic Valve Trisinus/trileaflet aortic valve. Mild focal aortic valve thickening. Trivial aortic valve insufficiency. Pulmonic Valve The pulmonic valve is not well visualized. Great Vessels Normal sized aortic root. Pericardium/Pleural No pericardial effusion. MMode/2D Measurements & Calculations LVIDd: 4.0 cm IVSd: 1.0 cm Ao root diam: 3.1 cm LVIDs: 2.8 cm LVPWd: 1.0 cm RVDd: 2.8 cm FS: 30.5 % LAV(MOD-bp): 29.1 ml LVAd ap4: 25.8 cm2 SV(MOD-sp4): 47.2 ml LAV(MOD-bp) Indexed: 15.2 ml/m2 LVLd ap4: 7.0 cm LAV(MOD-sp2): 29.4 ml EDV(MOD-sp4): 76.3 ml LAV(MOD-sp4): 26.5 ml EDV(sp4-el): 80.7 ml LVAs ap4: 14.0 cm2 LVLs ap4: 5.7 cm ESV(MOD-sp4): 29.1 ml ESV(sp4-el): 29.4 ml EF(MOD-sp4): 61.9 % EF(sp4-el): 63.6 % SV(sp4-el): 51.3 ml LA A4 area: 11.8 cm2 LA dimension(2D): 2.9 cm RA A4 area: 11.1 cm2 Time Measurements MV dec time: 0.21 sec Doppler Measurements & Calculations MV E max josé miguel: 68.6 cm/sec Lat Peak E' José Miguel: 7.7 cm/sec Med Peak E' José Miguel: 6.9 cm/sec MV A max josé miguel: 97.3 cm/sec E/E' lat: 8.9 E/E' med: 10.0 MV E/A: 0.70 Ao V2 max: 163.4 cm/sec AI max josé miguel: 407.1 cm/sec LV V1 max: 124.7 cm/sec Ao max P.7 mmHg AI max P.3 mmHg LV V1 max P.2 mmHg AI dec slope: 174.4 cm/sec2 AI P1/2t: 683.8 msec PA V2 max: 96.9 cm/sec TR max josé miguel: 265.4 cm/sec TR max P.2 mmHg ECHO/Echo Complete Interpretation Summary The study was technically difficult. Left ventricular systolic function is normal. The estimated ejection fraction is 70 %. The mitral valve chordae are thickened and/or calcified. Trivial mitral valve insufficiency. Trivial tricuspid valve insufficiency. Mild focal aortic valve thickening. Trivial aortic valve insufficiency. Right ventricular systolic pressure estimated to be 31 mmHg. No evidence for diastolic dysfunction. Ordering Physician: Sultana Walker Referring Physician: DALTON DONATO Performed By: Ruma Pierre RDCS
== END | disposition home or self-care (01) ==
LOC: CVS 14:39
PROVIDERS: PCP Internal Medicine; Referring Provider Physician Assistant; Visit Provider Physician Assistant
DX: R07.9 Chest pain, unspecified (principal)
CPT/HCPCS: 93306

== ENCOUNTER 2022-02-17 12:00 | Outpatient (RCR) | payer MEDICARE, MEDICAID, SELFPAY ==
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
--- NOTE | 2022-02-23 12:52 | HP.PTDCSUM ---
It has been my pleasure to treat MAX PRIETOYMER referred by Dr. Chan Vazquez MD, with the diagnosis of Back Pain for a total of 6 visit(s). Discharge Date: Please see the following information for a summary of their discharge status. Subjective: Patient reports that the pain medication cream is helping a lot- she is not taking any pills. She still can't stand or walk very far- if she goes to [facility] she needs to take a cart. She has pain when sitting in jehovah's witness due to the shape of the pew. Back and RLE Pain Intensity (Out of 10): 3 % Improvement: 0 Objective/Function: Posture: poor- FH, RS- can correct to neutral with verbal and tactile cues but is unable to maintain and reports significant low back and right leg pain. Gait: poor posture- slow blaise and requires 60 seconds to obtain upright posture prior to first steps- uses rollator and 3L of O2 . HR/TR: unable standing due to pain but can perform seated. S ROM: Lumbar: flexion: hands to knees, Extn: neutral, SB: WFL bilateral Rot: diminished by 50% bilaterally- all with significant pains. Strength: Core: poor Hip: Left: 4-/5, Right: 4/5, Knee: 4/5, Ankle:5/5. Goal 1:: Patient will be I with HEP and progression Goal 2:: Patient will maintain proper posture t/o tx session to demo increased core s/s Goal 3:: Patient will report no radicular s/s down either LE Goal 4:: Patient will report 80% improvement. Plan: 02/23/22: Discharge to home exercise program-printed off all exercises for sitting and standing. Focus on LE and core strength/stabilization and functional mobility. HEP Given IE: postural correction and moving more (every commercial)! If there are questions or concerns regarding this patient's physical therapy, please feel free to call me at [phone]. Thank you for the referral of this patient. Sincerely, Madelyn Ward, DPT Balance/Gait/Functional tests - Balance/Special Test Scores Oswestry Low Back Score: 24
== END 2022-02-17 19:00 | disposition home or self-care (01) ==
LOC: PT 12:00
PROVIDERS: PCP Internal Medicine; Referring Provider Anesthesiology Pain Medicine; Visit Provider Anesthesiology Pain Medicine
DX: M54.9 Dorsalgia, unspecified (principal)
CPT/HCPCS: 97110; 97162; 97530

== ENCOUNTER → 2022-05-25 | Outpatient (CLI) | payer MEDICARE, MEDICAID, SELFPAY ==
--- NOTE | 2022-05-25 13:57 | CT_ITS ---
STUDY: LOW DOSE CT LUNG CANCER SCREENING REASON FOR EXAM: Female, 66 years old. Lung cancer screening -- 80 pk yr hx;current smoker;asymptomatic RADIATION DOSAGE (If Supplied By Facility): CTDIvol = ( 4.02 ) mGy, DLP = ( 120.84 ) mGycm TECHNIQUE: No contrast was administered. Low dose technique was utilized (average mAS-38 and kVp 120). 1.25 mm axial source images with a slice interval of 1.25-mm were reconstructed in lung windows. 2.5 mm axial source images with a slice interval of 2.5-mm were reconstructed in lung windows. 5.0 mm axial source images with a slice interval of 5.0-mm were reconstructed in soft tissue windows. COMPARISON: Comparison is made with prior examination dated 01/06/2021. NODULES: No suspicious nodules are seen. Emphysema: Hyperinflation. Emphysematous changes worse in the upper lobes. Scarring at the lung bases more prominent at the right lung base. There is a 1.9 cm pleural-based bleb in the peripheral lateral aspect of the left lower lobe. Increased linear markings in the anterior aspect of the right lower lobe suggestive of scarring. Endobronchial lesion: None Aorta: Atherosclerotic plaque formation of the aortic arch. CORONARY ARTERIES: Coronary artery calcification is seen. Heart: Unremarkable. Pulmonary artery: Unremarkable. Mediastinal nodes: Benign appearing mediastinal lymph nodes. Other chest and abdominal findings: CT/Low Dose CT Lung Screening IMPRESSION: Lung-RADS category 2 - Continue annual screening with LDCT in 12 months. IMPORTANT NOTES FOR USE: ACR Lung-RADS Version 1.1 Assessment Categories Release Date: 2018 Category: Coded 0-4 bases on nodule(s) with highest degree of suspicion. Negative screen is defined as categories 1 and 2; a positive screen is defined as categories 3 and 4. Category 3 and 4A nodules that are unchanged on interval CT should be coded as category 2, and individuals returned to screening in 12 months. Category 4X: Category 3 or 4 nodules with additional imaging findings that increase the suspicion of lung cancer, such as spiculation, GGN that doubles in size in 1 year, enlarged lymph notes, etc. Category Modifiers: S (significant finding unrelated to lung cancer) Electronically Signed: Wilfred De La Cruz MD at 14:30 EDT ,
== END | disposition home or self-care (01) ==
LOC: CT 13:55
PROVIDERS: PCP Internal Medicine; Referring Provider Nurse Practitioner Family; Visit Provider Nurse Practitioner Family
DX: Z87.891 Personal history of nicotine dependence (principal)
CPT/HCPCS: 71271

== ENCOUNTER → 2022-07-15 | Outpatient (CLI) | payer MEDICARE, MEDICAID, SELFPAY ==
[2022-07-15 12:18] LABS: Absolute Lymphocyte Count 1.18 X10^3/uL (0.83-4.51); Absolute Neutrophil Count 9.2 X10^3/uL (2.0-7.7); Basophil# 0.04 X10^3/uL; Basophil% 0.3 % (0-1); Eosinophil# 0.34 X10^3/uL; Hematocrit 43.2 % (37-47); Hemoglobin 13.7 g/dL (12.0-15.0); Lymphocyte # 1.18 X10^3/ul (0.83-4.51); Lymphocyte % 10.3 % (19-41); Mean Corp Hgb Conc 31.7 g/dL (32-36); Mean Corpuscular Hgb 27.8 pg (27.0-32.0); Mean Corpuscular Volume 87.6 fL (81-99); Mean Platelet Vol. 8.8 fl (6.2-12.0); Monocyte# 0.65 X10^3/uL; Monocyte% 5.7 % (0-10); NRBC Flagged by Analyzer 0 % (0-5); Neutrophil # 9.17 X10^3/uL (2.7-7.7); Neutrophil % 79.9 % (47-70); Platelet Count 295 K/mm3 (150-450); RBC Distribution Width CV 15.9 % (11.6-14.6); RBC Distribution Width SD 50.6 fl (35.1-43.9); Red Blood Count 4.93 M/mm3 (4.2-5.4); White Blood Count 11.5 K/mm3 (4.4-11.0)
[2022-07-15 12:38] LABS: Vitamin D,25 Hydroxy 18.8 ng/mL
[2022-07-15 12:55] LABS: ALB/GLOB Ratio 0.8 RATIO (0.9-2.4); AST(SGOT) 20 U/L (15-37); Alanine Aminotransfer ALT/SGPT 26 U/L (13-56); Albumin, Serum 3.3 g/dL (3.2-5.0); Alkaline Phosphatase 111 U/L (45-117); Anion Gap 6 (5-15); BUN 17 mg/dL (7-18); BUN/Creat Ratio 20.8 RATIO (10-20); Calcium,Total 9.6 mg/dL (8.5-10.1); Chloride 97 mmol/L (98-107); Creatinine, Serum 0.82 mg/dL (0.55-1.02); EST Glomerular Filtration Rate 74 mL/min (>60); Est Glom Filt Rate - Afr Amer 89 mL/min (>60); Free T3 2.1 pg/mL (2.18-3.98); Glucose 101 mg/dL (74-106); Potassium 3.8 mmol/L (3.5-5.1); Protein, Total 7.3 g/dL (6.4-8.2); Sodium Level 137 mmol/L (136-145); T4 Free Direct 0.94 ng/dL (0.76-1.46); Thyroid Stim Hormone (TSH) 2.03 uIU/mL (0.358-3.74)
== END | disposition home or self-care (01) ==
LOC: MTLAB 10:05
PROVIDERS: PCP Internal Medicine; Referring Provider Internal Medicine; Visit Provider Internal Medicine
DX: N39.0 Urinary tract infection, site not specified (principal); E55.9 Vitamin D deficiency, unspecified; R79.89 Other specified abnormal findings of blood chemistry; M48.061 Spinal stenosis, lumbar region without neurogenic claudication; F41.9 Anxiety disorder, unspecified; F32.9 Major depressive disorder, single episode, unspecified; I10 Essential (primary) hypertension
CPT/HCPCS: 36415; 80053; 82306; 84439; 84443; 84481; 85025; 87077; 87086; 87088; 87186

== ENCOUNTER → 2022-10-21 | Outpatient (CLI) | payer MEDICARE, MEDICAID, SELFPAY | END | disposition home or self-care (01) | LOC: MTLAB 14:48 | PROVIDERS: PCP Internal Medicine; Referring Provider Urology; Visit Provider Urology | DX: N39.0 Urinary tract infection, site not specified (principal) | CPT/HCPCS: 87077; 87086; 87088; 87186 ==

== ENCOUNTER 2022-10-26 10:20 | Emergency (ER) | payer MEDICARE, MEDICAID, SELFPAY ==
[2022-10-26 10:20] VITALS: BP 159/81; PULSE 86; RESP 18; TEMP 35.7; O2SAT 93
[2022-10-26 11:30] LABS: Absolute Neutrophil Count 8.9 X10^3/uL (2.0-7.7); Basophil# 0.07 X10^3/uL; Basophil% 0.6 % (0-1); Eosinophil# 0.23 X10^3/uL; Hematocrit 40.7 % (37-47); Hemoglobin 12.6 g/dL (12.0-15.0); Lymphocyte % 12.4 % (19-41); Mean Corpuscular Hgb 27.1 pg (27.0-32.0); Mean Corpuscular Volume 87.5 fL (81-99); Mean Platelet Vol. 8.6 fl (6.2-12.0); Monocyte# 0.63 X10^3/uL; Monocyte% 5.6 % (0-10); NRBC Flagged by Analyzer 0 % (0-5); Neutrophil # 8.91 X10^3/uL (2.7-7.7); Neutrophil % 78.6 % (47-70); Platelet Count 278 K/mm3 (150-450); RBC Distribution Width CV 14.6 % (11.6-14.6); RBC Distribution Width SD 46.7 fl (35.1-43.9); Red Blood Count 4.65 M/mm3 (4.2-5.4); White Blood Count 11.3 K/mm3 (4.4-11.0)
[2022-10-26 11:42] LABS: Anion Gap 7 (5-15); BUN 17 mg/dL (7-18); Calcium,Total 9.2 mg/dL (8.5-10.1); Chloride 103 mmol/L (98-107); EST Glomerular Filtration Rate 58 mL/min (>60); Est Glom Filt Rate - Afr Amer 71 mL/min (>60); Glucose 127 mg/dL (74-106); Potassium 3.9 mmol/L (3.5-5.1); Sodium Level 139 mmol/L (136-145)
--- NOTE | 2022-10-26 12:00 | RAD_ITS ---
EXAM: XR CHEST, 1 VIEW CLINICAL INDICATION: SOB TECHNIQUE: Frontal view of the chest. This report was created using [employer] report generation technology. COMPARISON: XR Chest dated 12/07/2021 FINDINGS: LUNGS AND PLEURAL SPACES: Interstitial thickening of the lungs again noted suggestive of chronic inflammatory process. No pneumothorax. No effusion. HEART: Normal heart size. MEDIASTINUM: No mediastinal or hilar mass. BONES/JOINTS: No acute abnormality. SOFT TISSUES: Normal. RAD/Chest 1 View (Portable) IMPRESSION: Chronic interstitial lung disease. Electronically Signed: Tello Saldana MD at 12:29 EST ,
--- NOTE | 2022-10-26 12:46 | EKG12_ITS ---
Test Reason : SOB Blood Pressure : / mmHG Vent. Rate : 071 BPM Atrial Rate : 071 BPM P-R Int : 146 ms QRS Dur : 080 ms QT Int : 390 ms P-R-T Axes : 052 018 045 degrees QTc Int : 423 ms Normal sinus rhythm Normal ECG Confirmed by MARYANNE POWERS, NURIA ([id number]), news videotape editor KINGS SAAVEDRA ([id number]) on 10/28/2022 9:44:13 AM Referred By: Confirmed By:NURIA MADDEN MD
[2022-10-26] MEDS: Ipratropium/Albuterol Sulfate 3 ML AMPUL.NEB INHALATION (12:54)
[2022-10-26 12:55] VITALS: PULSE 77; RESP 16
[2022-10-26 12:59] VITALS: O2SAT 99
[2022-10-26 13:04] VITALS: BP 167/95; PULSE 72; RESP 18; TEMP 36.5; O2SAT 97; O2SAT 99; BMI 40.6
[2022-10-26 13:09] VITALS: BP 167/95; PULSE 71; O2SAT 99
--- NOTE | 2022-10-26 14:39 | EDS_ITS ---
HPI History of Present Illness Chief Complaint: Shortness of Breath Informant: patient Onset/Context/Timing Onset: Yesterday Context: gradual Timing: Continuous Quality: Positive for - (Tightness, burning) Worsened by: Nothing Relieved by: Nothing Associated Symptoms cough and clear sputum; Negative for rhinorrhea, post nasal drip, ear pain, fever, sore throat, chills or sweats Chest Pain: Positive for None Narrative Narrative: Patient presents with shortness of breath that has been getting worse since yesterday. Patient states it is gradually getting worse. Patient describes it as tightness and burning. Patient states nothing makes it worse and nothing makes it better. Patient states she has had a cough with some clear sputum. Patient denies any chest pain. Patient denies any fevers or chills. Patient states she checked her pulse oximeter this morning and noted it was 86% on her normal oxygen. Patient denies any recent travel or recent surgery. Patient denies any history of blood clots or cancer of any kind. Patient denies any hemoptysis. PE Risk Factors: Negative for Cancer, OCP + Smoking + > 35, Prior DVT or PE, Recent immobilization, Recent surgery or Recent travel [facility] Medical History Anxiety and depression Arthritis COPD (chronic obstructive pulmonary disease) Cough due to bronchospasm Degenerative lumbar spinal stenosis Dyspnea on exertion Encounter for screening for malignant neoplasm of lung in current smoker with 30 pack year history or greater GERD (gastroesophageal reflux disease) Hypertension Kidney stones Oral thrush PTSD (post-traumatic stress disorder) Tobacco use disorder, continuous Home Medications prazosin 1 mg capsule 1 mg PO DAILY blood pressure 09/29/17 [History Last Taken 01/08/21] sertraline 100 mg tablet 200 mg PO DAILY depression 10/23/20 [History Last Taken 01/08/21] aripiprazole 20 mg tablet 20 mg PO DAILY mood 01/06/21 [History Last Taken 01/08/21] prazosin 2 mg capsule 2 mg PO QHS blood pressure 01/06/21 [History Last Taken 01/08/21] Pulse oximeter #1 ea 02/05/21 [Rx Last Taken Unknown] blood pressure monitor (Blood Pressure Kit) #1 ea 02/05/21 [Rx Last Taken Unknown] walker (Ultra-Light Rollator misc) #1 ea 03/24/21 [Rx Last Taken Unknown] bupropion HCl 150 mg 24 hr tablet, extended release 300 mg PO DAILY mood 05/05/21 [History Last Taken Unknown] albuterol sulfate 90 mcg/actuation aerosol inhaler 1 - 2 puff inhalation Q4H PRN PRN Wheezing ##1 11/20/21 [Rx Last Taken Unknown] budesonide 160 mcg-glycopyr 9 mcg-formot 4.8 mcg/actuation HFA inhaler (Breztri Aerosphere) 2 inh inhalation BID 12/07/21 [History Last Taken Unknown] guaifenesin 600 mg tablet, extended release 12 hr (Mucinex) 600 mg PO BID 12/07/21 [History Last Taken Unknown] amlodipine 5 mg tablet 5 mg PO DAILY blood pressure #90 tabs 01/14/22 [Rx Last Taken Unknown] azelastine-fluticasone 137 mcg-50 mcg/spray nasal spray 1 spray intranasal BID #23 grams 01/26/22 [Rx Last Taken Unknown] underpads (Bed Underpads) #40 ea 02/16/22 [Rx Last Taken Unknown] celecoxib 200 mg capsule 200 mg PO DAILY #60 caps 06/28/22 [Rx Last Taken Unknown] nicotine 7 mg/24 hr daily transdermal patch 1 patch transdermal Q24H #14 ea 07/08/22 [Rx Last Taken Unknown] vibegron 75 mg tablet (Gemtesa) 75 mg PO DAILY 07/14/22 [History Last Taken Unknown] cholecalciferol (vitamin D3) 25 mcg (1,000 unit) capsule 25 mcg PO DAILY 07/15/22 [History Last Taken Unknown] esomeprazole magnesium 20 mg capsule,delayed release 20 mg PO DAILY gerd #90 caps 08/12/22 [Rx Last Taken Unknown] lisinopril 20 mg-hydrochlorothiazide 25 mg tablet 1 tab PO DAILY blood pressure #90 tabs 08/12/22 [Rx Last Taken Unknown] prednisone 20 mg tablet 60 mg PO DAILY #15 TABLETS 10/26/22 [Rx Last Taken Unknown] Allergy/AdvReac Type Severity Reaction Status Date / Time Sulfa (Sulfonamide AdvReac Nausea Verified 10/26/22 10:22 Antibiotics) Family History Mother Diabetes Hypertension Breast cancer Father Heart disease Hypertension Myocardial infarction, Onset Age: 46 Surgical History History of History of D&C History of hand surgery History of hysterectomy Social History Smoking Status: Current every day smoker tobacco type: cigarettes Tobacco: How many years used: 36 alcohol intake: never substance use type: does not use what type of physical activity do you participate in: none ROS ROS ED Constitutional Constitutional ED: Denies chills or fever(s) Eyes Eyes: Denies blurry vision or change in vision ENT ENT ED: Denies rhinorrhea or sore throat Cardiovascular Cardiovascular: Denies chest pain or palpitations Respiratory/Chest Respiratory/Chest: Reports cough and dyspnea Gastrointestinal Gastrointestinal: Denies nausea or vomiting Genitourinary Genitourinary ED: Denies dysuria or hematuria Musculoskeletal Musculoskeletal: Denies back pain or neck pain Integumentary Denies abscess or rash Neurologic Neurologic: Denies headache(s) or weakness Allergic/Immunologic Allergic/Immunologic ED: Denies mouth swelling or urticaria EXAM Physical Exam Const Vital Signs: 10/26/22 10:20 10/26/22 12:55 10/26/22 12:59 Temperature 96.3 F L Temperature Source Temporal Pulse Rate 86 77 Respiratory Rate 18 16 Respiratory Effort Blood Pressure 159/81 H Blood Pressure Mean 107 Pulse Ox 93 99 Oxygen Delivery Method Nasal Cannula Nasal Cannula Oxygen Flow Rate (L/min) 3 3 10/26/22 13:04 10/26/22 13:04 10/26/22 13:04 Temperature 97.7 F L Temperature Source Temporal Pulse Rate 72 Respiratory Rate 18 18 Respiratory Effort Blood Pressure 167/95 H Blood Pressure Mean 119 Pulse Ox 97 99 Oxygen Delivery Method Nasal Cannula Nasal Cannula Nasal Cannula Oxygen Flow Rate (L/min) 3 3 3 10/26/22 13:09 10/26/22 13:09 Temperature Temperature Source Pulse Rate 71 Respiratory Rate Respiratory Effort Normal Non-Labored Blood Pressure 167/95 H Blood Pressure Mean 119 Pulse Ox Oxygen Delivery Method Nasal Cannula Oxygen Flow Rate (L/min) 3 Positive well nourished, well developed and obese General Appearance ED: well developed and NAD Nutritional Appearance: obese HEENT Reports moist mucous membranes Neck supple and no JVD Resp normal respiratory effort Auscultation: wheezes Cardio regular rate and regular rhythm GI normal to inspection, nondistended, normoactive bowel sounds and non-tender Palpation: soft Extremity normal to inspection General Extremety ED: Negative for edema or tenderness General Extremity: Negative for edema Neuro oriented x3, CN's II-XII intact bilaterally and no sensory deficits noted Sensorium / Orientation: alert Motor Exam: strength 5/5 throughout Psych mental status grossly normal Skin no rashes or lesions noted MDM MDM MDM Narrative Medical decision making narrative: Differential diagnosis includes pneumonia, COPD exacerbation, viral infection, COVID infection, influenza infection, pneumothorax, cardiac ischemia, cardiac dysrhythmia, and congestive heart failure. EKG will be obtained to assess for cardiac ischemia and cardiac dysrhythmia. Chest x-ray will be obtained to assess for pneumonia, pneumothorax, and congestive heart failure. CBC will be obtained to assess for leukocytosis and anemia. Basic metabolic profile will be obtained to assess for electrolyte abnormality and renal function. COVID-19 rapid antigen was obtained to assess for COVID infection. Influenza A and influenza B antigens will be obtained to assess for influenza infection. Lab Data Attestation: I reviewed the patient's lab results. Lab results narrative: CBC was reviewed and showed a slight leukocytosis of 11.3 but was otherwise within normal limits. Basic metabolic profile was reviewed and was within normal limits. COVID-19 rapid antigen was reviewed and was negative. Influenza A and influenza B rapid antigens were reviewed and were negative. Labs: Laboratory Results - last 24 hr 10/26/22 10/26/22 11:24 11:24 WBC 11.3 H RBC 4.65 Hgb 12.6 Hct 40.7 MCV 87.5 MCH 27.1 MCHC 31.0 L RDW Std Deviation 46.7 H RDW Coeff of Ronny 14.6 Plt Count 278 MPV 8.6 Immature Gran % (Auto) 0.800 Neut % (Auto) 78.6 H Lymph % (Auto) 12.4 L [place] % (Auto) 5.6 Eos % (Auto) 2.0 Baso % (Auto) 0.6 Absolute Neuts (auto) 8.9 H Absolute Lymphs (auto) 1.40 Nucleated RBC % 0 Sodium 139 Potassium 3.9 Chloride 103 Carbon Dioxide 29.0 Anion Gap 7 BUN 17 Creatinine 1.00 Est GFR (MDRD) Af Amer 71 Est GFR (MDRD) Non-Af 58 L BUN/Creatinine Ratio 17.0 Glucose 127 H Calcium 9.2 Radiography Chest X-Ray - ED: 1 View, Read by ED Physician, Read by Radiologist and Chronic Changes Diagnostic Testing: Clinical Impression(s) from Imaging Studies Chest X-Ray 10/26/22 12:00 IMPRESSION: Chronic interstitial lung disease. Electronically Signed: Tello Saldana MD at 12:29 EST , Portable 1 view chest x-ray was obtained. On my independent interpretation, lung ng show chronic changes. There is normal cardiac silhouette. Bony thorax is normal. There is no acute process noted. Radiologist also inte rpreted the x-ray and agrees. EKG Initial EKG: Attestation: I personally reviewed and interpreted this EKG as follows: Interpretation: Sinus Rhythm (71) and No Acute Injury Pattern Comments: EKG was obtained. On my independent interpretation, it showed a normal sinus rhythm with a rate of 71. WA interval, QRS interval, and QTc intervals were all normal. [place] was normal. There are no acute ST or T wave changes. Prior EKG tracings: available for review Prior: Unchanged (12/07/2021) Treatment and Re-Evaluation Narrative: Patient was given a DuoNeb aerosol here. Patient feels better and wants to go home. Patient was given a dose of prednisone here. Patient was given a prescription for prednisone. Patient will be ambulated her normal oxygen at 3 L nasal cannula. If she is able to maintain her oxygen saturations ambulating on her normal oxygen, I feel safe discharging her home. Patient was instructed to follow-up with her primary care physician in 5 to 7 days. Patient understood and was agreeable with the plan. All questions were answered. Discharge Plan Triage Chief Complaint: Shortness of Breath ED Provider: Kevin Gates Dx/Rx/DC Orders Clinical Impression: COPD exacerbation, Morbid obesity with BMI of 40.0-44.9, adult Instructions: ED COPD Flare Prescriptions: New prednisone 20 mg tablet 60 mg PO DAILY Qty: 15 0RF No Action azelastine-fluticasone 137-50 mcg/spray spray,non-aerosol 1 spray intranasal BID Qty: 23 6RF Rx Instructions: administer into each nostril guaifenesin [Mucinex] 600 mg tablet extended release 12hr 600 mg PO BID Breztri Aerosphere 160-9-4.8 mcg/actuation HFA aerosol inhaler 2 inh inhalation BID Gemtesa 75 mg tablet 75 mg PO DAILY cholecalciferol (vitamin D3) 25 mcg (1,000 unit) capsule 25 mcg PO DAILY prazosin 1 MG capsule 1 mg PO DAILY sertraline 100 mg tablet 200 mg PO DAILY prazosin 2 mg capsule 2 mg PO QHS aripiprazole 20 mg tablet 20 mg PO DAILY bupropion HCl 150 mg tablet extended release 24 hr 300 mg PO DAILY (DME) blood pressure monitor [Blood Pressure Kit] Kit See Rx Instructions .ROUTE .MEDSUPPLY Qty: 1 0RF Rx Instructions: Check daily and as needed (DME) Pulse oximeter See Rx Instructions .Route .MEDSUPPLY Qty: 1 0RF Rx Instructions: Monitor daily or as needed (DME) Ultra-Light Rollator Misc See Rx Instructions .ROUTE .MEDSUPPLY Qty: 1 0RF Rx Instructions: As directed albuterol sulfate 90 mcg/actuation HFA aerosol inhaler 1 - 2 puff INHALATION Q4H PRN PRN (Reason: Wheezing) Qty: 1 0RF amlodipine 5 mg tablet 5 mg PO DAILY Qty: 90 3RF (DME) underpads [Bed Underpads] Pad See Rx Instructions .Route Qty: 40 6RF Rx Instructions: R32. celecoxib 200 mg capsule 200 mg PO DAILY Qty: 60 0RF nicotine 7 mg/24 hr patch 24 hour 1 patch transdermal Q24H Qty: 14 1RF esomeprazole magnesium 20 mg capsule,delayed release(DR/EC) 20 mg PO DAILY Qty: 90 3RF lisinopril-hydrochlorothiazide 20-25 mg tablet 1 tab PO DAILY Qty: 90 3RF Primary Care Provider: Rosa Bragg Referrals: Rosa Bragg MD [Primary Care Provider] - 3-5 Days Disposition Disposition: Home, Self Care
[2022-10-26 14:49] VITALS: O2SAT 97
--- NOTE | 2022-10-26 15:43 | ED.RN ---
pt left without PO med or discharge paperwork. attempted to call pt and left voicemail about perception at her pharmacy.
== END 2022-10-26 15:51 | disposition home or self-care (01) ==
PROVIDERS: Emergency Provider Emergency Medicine; PCP Internal Medicine; Visit Provider Emergency Medicine
DX: J44.1 Chronic obstructive pulmonary disease with (acute) exacerbation (principal); E66.01 Morbid (severe) obesity due to excess calories; I10 Essential (primary) hypertension; F17.210 Nicotine dependence, cigarettes, uncomplicated; Z79.52 Long term (current) use of systemic steroids; Z20.822 Contact with and (suspected) exposure to COVID-19
CPT/HCPCS: 71045; 80048; 85025; 87428; 93005; 94640; 94760; 99283; A4216

== ENCOUNTER 2022-11-27 02:53 | Emergency (ER) | payer MEDICARE, MEDICAID, SELFPAY ==
[2022-11-27 02:57] VITALS: BP 170/82; PULSE 91; RESP 18; TEMP 37.3; O2SAT 97
[2022-11-27 03:01] VITALS: BMI 37.7
[2022-11-27 03:03] VITALS: BP 170/82; PULSE 94; RESP 18; TEMP 37.3; O2SAT 97
--- NOTE | 2022-11-27 03:28 | EKG12_ITS ---
Test Reason : DYSRHYTHMIA Blood Pressure : / mmHG Vent. Rate : 093 BPM Atrial Rate : 093 BPM P-R Int : 130 ms QRS Dur : 082 ms QT Int : 350 ms P-R-T Axes : 046 019 050 degrees QTc Int : 435 ms Normal sinus rhythm Septal infarct , age undetermined Abnormal ECG Confirmed by ANSELMO POWERS, CHINO ([id number]), linux administrator NOAH CHAPA ([id number]) on 11/29/2022 11:12:13 AM Referred By: ALEKSANDR Confirmed By:RAVI BRIONES MD
[2022-11-27 03:36] VITALS: PULSE 97; RESP 26; O2SAT 94
[2022-11-27] MEDS: Ipratropium/Albuterol Sulfate 3 ML AMPUL.NEB INHALATION (03:36)
[2022-11-27] MEDS: dexAMETHasone 10 MG/ML Vial IV (03:38)
[2022-11-27 03:43] LABS: Hematocrit 42.3 % (37-47); Hemoglobin 13.5 g/dL (12.0-15.0); Mean Corp Hgb Conc 31.9 g/dL (32-36); Mean Corpuscular Hgb 26.7 pg (27.0-32.0); Mean Corpuscular Volume 83.8 fL (81-99); Mean Platelet Vol. 8.4 fl (6.2-12.0); POSITIVE COUNT YES; POSITIVE MORPHOLOGY YES; Platelet Count 278 K/mm3 (150-450); RBC Distribution Width CV 15.2 % (11.6-14.6); RBC Distribution Width SD 45.9 fl (35.1-43.9); Red Blood Count 5.05 M/mm3 (4.2-5.4); White Blood Count 12.6 K/mm3 (4.4-11.0)
[2022-11-27 03:44] LABS: Differential Indicated MANUAL DIFF
[2022-11-27 04:01] LABS: Anion Gap 5 (5-15); BUN 17 mg/dL (7-18); BUN/Creat Ratio 17.3 RATIO (10-20); Calcium,Total 8.7 mg/dL (8.5-10.1); Chloride 94 mmol/L (98-107); Creatinine, Serum 0.98 mg/dL (0.55-1.02); EST Glomerular Filtration Rate 60 mL/min (>60); Est Glom Filt Rate - Afr Amer 72 mL/min (>60); Estimated Creatinine Clearance 42.85 ml/min; Glucose 141 mg/dL (74-106); Magnesium 1.8 mg/dL (1.6-2.6); Potassium 3.7 mmol/L (3.5-5.1); Sodium Level 131 mmol/L (136-145); Troponin-I HS 16 pg/mL (3.0-54.0)
[2022-11-27 04:16] LABS: Lymphocyte 7 % (19-41); Metamyelocyte 3 % (0-1); Monocyte 6 % (0-10); Neutrophil-Band 8 % (0-5); Neutrophil-Segmented 76 % (47-70); Platelet Estimate ADEQUATE (ADEQ); Total Cells Counted 100 (MANUAL DIFF)
[2022-11-27 04:17] LABS: Absolute Lymphocyte Count 0.88 X10^3/uL (0.83-4.51); Absolute Neutrophil Count 10.6 X10^3/uL (2.0-7.7); Lymphocyte # 0.88 X10^3/ul (0.83-4.51); Neutrophil # 10.57 X10^3/uL (2.7-7.7); Red Cell Morphology NORM C+C NORMAL (NORM C&C)
--- NOTE | 2022-11-27 04:20 | RAD_ITS ---
INDICATION: cough EXAMINATION/TECHNIQUE: X-RAY - XR Chest 1 View COMPARISON: None. FINDINGS: LUNGS AND PLEURAL SPACES: Interstitial thickening of the lungs again noted suggestive of chronic inflammatory process. No pneumothorax. No effusion. HEART: Normal heart size. MEDIASTINUM: No mediastinal or hilar mass. BONES/JOINTS: No acute abnormality. SOFT TISSUES: Normal. RAD/Chest 1 View (Portable) IMPRESSION: Chronic interstitial lung disease. Electronically Signed: Radha Pathak MD at 4:42 EDT ,
[2022-11-27 05:25] VITALS: BP 129/83; PULSE 89; RESP 18; O2SAT 96
--- NOTE | 2022-11-27 05:34 | EDS_ITS ---
HPI History of Present Illness Chief Complaint: Shortness of Breath Narrative Narrative: Patient is a 67-year-old female with history of hypertension and COPD. She wears 3 L of nasal cannula oxygen 21/03. She states that she began feeling ill roughly 5 days ago and then 2 days after feeling ill took a COVID test which was positive. Patient states that she is currently on Paxlovid. She states that this evening she had increased shortness of breath which concerned her especially with her recent COVID diagnosis and therefore called EMS to bring her in for evaluation [facility] Medical History Anxiety and depression Arthritis COPD (chronic obstructive pulmonary disease) Cough due to bronchospasm Degenerative lumbar spinal stenosis Dyspnea on exertion Encounter for screening for malignant neoplasm of lung in current smoker with 30 pack year history or greater GERD (gastroesophageal reflux disease) Hypertension Kidney stones Oral thrush PTSD (post-traumatic stress disorder) Tobacco use disorder, continuous Home Medications prazosin 1 mg capsule 1 mg PO DAILY blood pressure 09/29/17 [History Last Taken 01/08/21] sertraline 100 mg tablet 200 mg PO DAILY depression 10/23/20 [History Last Taken 01/08/21] aripiprazole 20 mg tablet 20 mg PO DAILY mood 01/06/21 [History Last Taken 01/08/21] prazosin 2 mg capsule 2 mg PO QHS blood pressure 01/06/21 [History Last Taken 01/08/21] Pulse oximeter #1 ea 02/05/21 [Rx Last Taken Unknown] blood pressure monitor (Blood Pressure Kit) #1 ea 02/05/21 [Rx Last Taken Unknown] deepak (Ultra-Light Rollator [facility] [place]) #1 ea 03/24/21 [Rx Last Taken Unknown] bupropion HCl 150 mg 24 hr tablet, extended release 300 mg PO DAILY mood 05/05/21 [History Last Taken Unknown] albuterol sulfate 90 mcg/actuation aerosol inhaler 1 - 2 puff inhalation Q4H PRN PRN Wheezing ##1 11/20/21 [Rx Last Taken Unknown] budesonide 160 mcg-glycopyr 9 mcg-formot 4.8 mcg/actuation HFA inhaler (Breztri Aerosphere) 2 inh inhalation BID 12/07/21 [History Last Taken Unknown] guaifenesin 600 mg tablet, extended release 12 hr (Mucinex) 600 mg PO BID 12/07/21 [History Last Taken Unknown] amlodipine 5 mg tablet 5 mg PO DAILY blood pressure #90 tabs 01/14/22 [Rx Last Taken Unknown] azelastine-fluticasone 137 mcg-50 mcg/spray nasal spray 1 spray intranasal BID #23 grams 01/26/22 [Rx Last Taken Unknown] underpads (Bed Underpads) #40 ea 02/16/22 [Rx Last Taken Unknown] celecoxib 200 mg capsule 200 mg PO DAILY #60 caps 06/28/22 [Rx Last Taken Unknown] nicotine 7 mg/24 hr daily transdermal patch 1 patch transdermal Q24H #14 ea 07/08/22 [Rx Last Taken Unknown] vibegron 75 mg tablet (Gemtesa) 75 mg PO DAILY 07/14/22 [History Last Taken Unknown] cholecalciferol (vitamin D3) 25 mcg (1,000 unit) capsule 25 mcg PO DAILY 07/15/22 [History Last Taken Unknown] esomeprazole magnesium 20 mg capsule,delayed release 20 mg PO DAILY gerd #90 caps 08/12/22 [Rx Last Taken Unknown] lisinopril 20 mg-hydrochlorothiazide 25 mg tablet 1 tab PO DAILY blood pressure #90 tabs 08/12/22 [Rx Last Taken Unknown] prednisone 20 mg tablet 60 mg PO DAILY #15 TABLETS 10/26/22 [Rx Last Taken Unknown] nirmatrelvir 300 mg (150 mg x2)-ritonavir 100 mg tablet,dose pack(EUA) (Paxlovid) See Rx Instructions PO .COMPLEX #30 tabs 11/25/22 [Rx Last Taken Unknown] Allergy/AdvReac Type Severity Reaction Status Date / Time prednisone AdvReac Other Verified 11/27/22 03:02 Sulfa (Sulfonamide AdvReac Nausea Verified 10/26/22 10:22 Antibiotics) Family History Mother Diabetes Hypertension Breast cancer Father Heart disease Hypertension Myocardial infarction, Onset Age: 46 Surgical History History of History of D&C History of hand surgery History of hysterectomy Social History Smoking Status: Current every day smoker tobacco type: cigarettes Tobacco: How many years used: 36 alcohol intake: never substance use type: does not use what type of physical activity do you participate in: none ROS ROS ED Constitutional Constitutional ED: Denies chills or fever(s) ENT ENT ED: Reports rhinorrhea; Denies sore throat Cardiovascular Cardiovascular: Denies chest pain Respiratory/Chest Respiratory/Chest: Reports cough and dyspnea Gastrointestinal Gastrointestinal: Denies abdominal pain, diarrhea, nausea or vomiting Genitourinary Genitourinary ED: Denies dysuria Musculoskeletal Musculoskeletal: Reports myalgias Integumentary Denies rash Neurologic Neurologic: Reports headache(s) and weakness Psychiatric Psychiatric: Reports anxiety Hematologic/Lymphatic Hematologic/Lymphatic: Denies easy bleeding or easy bruising EXAM Physical Exam Const Vital Signs: 11/27/22 05:25 Pulse Rate 89 Respiratory Rate 18 Blood Pressure 129/83 H Blood Pressure Mean 98 Pulse Ox 96 Oxygen Delivery Method Venturi Mask Oxygen Flow Rate (L/min) 3 Positive well nourished, well developed and obese General Appearance ED: well developed Nutritional Appearance: obese HEENT HEENT Narrative: Nasal mucosa is hyperemic and boggy and there is cobblestoning the posterior pharynx consistent with sinus drainage without airway edema or compromise. No tongue or lip swelling noted Eyes PERRL and EOMs intact bilaterally Neck supple and no JVD Neck Narrative: No nuchal rigidity or meningeal signs present Chest Wall palpation of chest normal Chest Narrative: No bony deformity or crepitus Resp Resp Narrative: Patient is in mild respiratory distress with tachypnea and accessory muscle use. Breath sounds are diminished throughout with faint expiratory wheezing diffusely Cardio regular rate and regular rhythm Rate: other Other Details: Radial pulses are plus 2 out of 4 bilaterally are equal and symmetric GI normal to inspection, nondistended, normoactive bowel sounds, non-tender, non- distended and no masses GI Narrative: No voluntary guarding or rigidity no pulsatile mass or fluid wave Auscultation: normoactive bowel sounds Palpation: soft Extremity normal to inspection Extremity Narrative: No asymmetric edema no pitting edema negative Homans' sign bilaterally Neuro oriented x3 and CN's II-XII intact bilaterally Sensorium / Orientation: alert Psych Psych Narrative: Patient has a nervous/anxious affect Skin no rashes or lesions noted MDM MDM MDM Narrative Medical decision making narrative: Patient presented to the ER and is mild respiratory distress with tachypnea and accessory muscle use but was satting in the mid to high 90s on her normal 3 L. Secondary to her recent COVID diagnosis I did elect to perform a basic work-up. As her increased shortness of breath could be related to development of pneumonia pleural effusion congestive heart failure exacerbation anemia or COPD exacerbation or pneumothorax. Chest x-ray revealed chronic changes without acute infiltrate pneumothorax or pleural effusion and labs revealed no clinically significant findings. Patient was ambulated in the ER on her normal oxygen and her sats did not drop below 92%. Therefore at this time patient has not developed COVID-pneumonia she does not have need for blood transfusion she has no signs of congestive heart failure and she is not requiring a significant increase from her baseline oxygen and she is not desatting with ambulation and is therefore safe to return home and does not need placed in the hospital. This plan of care was discussed with patient and family and both are agreeable to it History & Record Review Discussion w/independent historian: EMS personnel, Patient and Family Lab Data Attestation: I reviewed the patient's lab results. Labs: Laboratory Results - last 24 hr 11/27/22 03:05 Absolute Neuts (auto) 10.6 H Absolute Lymphs (auto) 0.88 Total Counted 100 Neutrophils % (Manual) 76 H Band Neutrophils % 8 H Lymphocytes % (Manual) 7 L Monocytes % (Manual) 6 Metamyelocytes % 3 H Diff Path Review May foll Platelet Estimate ADEQUATE RBC Morphology NORM C+C Radiography Diagnostic Testing: Clinical Impression(s) from Imaging Studies Chest X-Ray 11/27/22 04:20 IMPRESSION: Chronic interstitial lung disease. Electronically Signed: Radha Pathak MD at 4:42 EDT , Chest x-ray as interpreted by the emergency medicine physician reveals chronic interstitial lung changes without acute infiltrate pneumothorax or pleural effusion Discharge Plan Triage Chief Complaint: Shortness of Breath ED Provider: Kris Napier Dx/Rx/DC Orders Clinical Impression: COVID-19, Hypertension, COPD (chronic obstructive pulmonary disease) Instructions: Coronavirus Disease 2019 (COVID-19): Caring for Yourself or Others Prescriptions: No Action azelastine-fluticasone 137-50 mcg/spray spray,non-aerosol 1 spray intranasal BID Qty: 23 6RF Rx Instructions: administer into each nostril guaifenesin [Mucinex] 600 mg tablet extended release 12hr 600 mg PO BID Alantri Aerosphere 160-9-4.8 mcg/actuation HFA aerosol inhaler 2 inh inhalation BID Gemtesa 75 mg tablet 75 mg PO DAILY cholecalciferol (vitamin D3) 25 mcg (1,000 unit) capsule 25 mcg PO DAILY prazosin 1 MG capsule 1 mg PO DAILY sertraline 100 mg tablet 200 mg PO DAILY prazosin 2 mg capsule 2 mg PO QHS aripiprazole 20 mg tablet 20 mg PO DAILY bupropion HCl 150 mg tablet extended release 24 hr 300 mg PO DAILY prednisone 20 mg tablet 60 mg PO DAILY Qty: 15 0RF (DME) blood pressure monitor [Blood Pressure Kit] Kit See Rx Instructions .ROUTE .MEDSUPPLY Qty: 1 0RF Rx Instructions: Check daily and as needed (DME) Pulse oximeter See Rx Instructions .Route .MEDSUPPLY Qty: 1 0RF Rx Instructions: Monitor daily or as needed (DME) Ultra-Light Rollator Misc See Rx Instructions .ROUTE .MEDSUPPLY Qty: 1 0RF Rx Instructions: As directed albuterol sulfate 90 mcg/actuation HFA aerosol inhaler 1 - 2 puff INHALATION Q4H PRN PRN (Reason: Wheezing) Qty: 1 0RF amlodipine 5 mg tablet 5 mg PO DAILY Qty: 90 3RF (DME) underpads [Bed Underpads] Pad See Rx Instructions .Route Qty: 40 6RF Rx Instructions: R32. celecoxib 200 mg capsule 200 mg PO DAILY Qty: 60 0RF nicotine 7 mg/24 hr patch 24 hour 1 patch transdermal Q24H Qty: 14 1RF esomeprazole magnesium 20 mg capsule,delayed release(DR/EC) 20 mg PO DAILY Qty: 90 3RF lisinopril-hydrochlorothiazide 20-25 mg tablet 1 tab PO DAILY Qty: 90 3RF Paxlovid (EUA) 300 mg (150 mg x 2)-100 mg tablets,dose pack See Rx Instructions PO .COMPLEX Qty: 30 0RF Rx Instructions: take TWO 150 mg tablets of nirmatrelvir with ONE 100 mg tablet of ritonavir twice daily for 5 days PO Primary Care Provider: Rosa Bragg Referrals: Rosa Bragg MD [Primary Care Provider] - Activity Restrictions/Additional Instructions: Please continue your Paxlovid and use your nebulizers as previously directed. It is okay to turn your oxygen up by a few liters from 3-5 or 6 if needed. However if you are requiring large amounts of oxygen above 10 L or your symptoms are worsening in any way please return for repeat evaluation. Disposition Disposition: Home, Self Care Discharge Date/Time: 11/27/22 05:54
[2022-11-29 13:07] LABS: Pathologist Review Reviewed
== END 2022-11-27 05:54 | disposition home or self-care (01) ==
PROVIDERS: Emergency Provider Emergency Medicine; PCP Internal Medicine; Visit Provider Emergency Medicine
DX: U07.1 COVID-19 (principal); J44.9 Chronic obstructive pulmonary disease, unspecified; I10 Essential (primary) hypertension; F17.210 Nicotine dependence, cigarettes, uncomplicated; Z99.81 Dependence on supplemental oxygen; R51.9 Headache, unspecified; E66.9 Obesity, unspecified
CPT/HCPCS: 71045; 80048; 83735; 83880; 84484; 85025; 93005; 94640; 96374; 99252; 99284; A4216; G0463

== ENCOUNTER 2023-02-11 19:01 | Emergency (ER) | payer MEDICARE, MEDICAID, SELFPAY ==
[2023-02-11 19:02] VITALS: BP 192/100; PULSE 85; RESP 16; TEMP 36.6; O2SAT 95
[2023-02-11 19:10] VITALS: BMI 40.9
--- NOTE | 2023-02-11 19:16 | EKG12_ITS ---
Test Reason : BACK Blood Pressure : / mmHG Vent. Rate : 078 BPM Atrial Rate : 078 BPM P-R Int : 150 ms QRS Dur : 084 ms QT Int : 376 ms P-R-T Axes : 063 025 056 degrees QTc Int : 428 ms Normal sinus rhythm Normal ECG Confirmed by ANSELMO POWERS, CHINO ([id number]), fashion editor KINGS SAAVEDRA ([id number]) on 02/14/2023 10:53:19 A M Referred By: Confirmed By:RAVI BRIONES MD
--- NOTE | 2023-02-11 19:19 | EDS_ITS ---
HPI <NITO Paige - Last Filed: 02/11/23 21:16> History of Present Illness Chief Complaint: Back Narrative Narrative: Patient presenting today with chronic back pain and left-sided chest pain. She reports that she has had spinal stenosis in her lumbar spine for the past several years and at one point was in pain management, however, she did not feel that the pain medication was working and was told that she is not a candidate for surgery so she stopped going to pain management. The pain has become more severe in her lower back. She denies any fever, chills, saddle paresthesia. She reports that she does have urinary incontinence and that is normal for her. This evening, she began to have left-sided sharp and constant chest pain that radiates to her left arm, prompting her to come in. She reports she no longer has the chest pain. She has a history of COPD and uses supplemental oxygen at baseline. She does not feel any more short of breath than usual. She denies any history of blood clots. [facility] <NITO Paige - Last Filed: 02/11/23 21:16> [facility] Medical History Anxiety and depression Arthritis COPD (chronic obstructive pulmonary disease) Cough due to bronchospasm Degenerative lumbar spinal stenosis Dyspnea on exertion Encounter for screening for malignant neoplasm of lung in current smoker with 30 pack year history or greater GERD (gastroesophageal reflux disease) Hypertension Kidney stones Oral thrush PTSD (post-traumatic stress disorder) Spinal stenosis Tobacco use disorder, continuous Home Medications prazosin 1 mg capsule 1 mg PO DAILY blood pressure 09/29/17 [History Last Taken 01/08/21] sertraline 100 mg tablet 200 mg PO DAILY depression 10/23/20 [History Last Taken 01/08/21] aripiprazole 20 mg tablet 20 mg PO DAILY mood 01/06/21 [History Last Taken 01/08/21] prazosin 2 mg capsule 2 mg PO QHS blood pressure 01/06/21 [History Last Taken 01/08/21] Pulse oximeter #1 ea 02/05/21 [Rx Last Taken Unknown] blood pressure monitor (Blood Pressure Kit) #1 ea 02/05/21 [Rx Last Taken Unknown] walker (Ultra-Light Rollator misc) #1 ea 07/27/21 [Rx Last Taken Unknown] bupropion HCl 150 mg 24 hr tablet, extended release 300 mg PO DAILY mood 05/05/21 [History Last Taken Unknown] budesonide 160 mcg-glycopyr 9 mcg-formot 4.8 mcg/actuation HFA inhaler (Breztri Aerosphere) 2 inh inhalation BID 12/07/21 [History Last Taken Unknown] amlodipine 5 mg tablet 5 mg PO DAILY blood pressure #90 tabs 01/14/22 [Rx Last Taken Unknown] azelastine-fluticasone 137 mcg-50 mcg/spray nasal spray 1 spray intranasal BID #23 grams 01/26/22 [Rx Last Taken Unknown] underpads (Bed Underpads) #40 ea 02/16/22 [Rx Last Taken Unknown] celecoxib 200 mg capsule 200 mg PO DAILY #60 caps 06/28/22 [Rx Last Taken Unknown] vibegron 75 mg tablet (Gemtesa) 75 mg PO DAILY 07/14/22 [History Last Taken Unknown] cholecalciferol (vitamin D3) 25 mcg (1,000 unit) capsule 25 mcg PO DAILY 07/15/22 [History Last Taken Unknown] esomeprazole magnesium 20 mg capsule,delayed release 20 mg PO DAILY gerd #90 caps 08/12/22 [Rx Last Taken Unknown] lisinopril 20 mg-hydrochlorothiazide 25 mg tablet 1 tab PO DAILY blood pressure #90 tabs 08/12/22 [Rx Last Taken Unknown] nebulizer inhalation 3XD 12/08/22 [History Last Taken Unknown] lidocaine 5 % patch and menthol 6 % gel topical kit See Rx Instructions topical .COMPLEX #1 ea 02/11/23 [Rx Last Taken Unknown] Allergy/AdvReac Type Severity Reaction Status Date / Time prednisone AdvReac Other Verified 02/11/23 19:02 Sulfa (Sulfonamide AdvReac Nausea Verified 02/11/23 19:02 Antibiotics) Family History Mother Diabetes Hypertension Breast cancer Father Heart disease Hypertension Myocardial infarction, Onset Age: 46 Surgical History History of History of D&C History of hand surgery History of hysterectomy Social History Smoking Status: Current every day smoker tobacco type: cigarettes Tobacco: How many years used: 36 alcohol intake: never substance use type: does not use what type of physical activity do you participate in: none ROS <NITO Paige - Last Filed: 02/11/23 21:16> ROS ED Constitutional Constitutional ED: Denies chills or fever(s) Cardiovascular Cardiovascular: Reports chest pain; Denies palpitations Respiratory/Chest Respiratory/Chest: Denies cough or dyspnea Gastrointestinal Gastrointestinal: Denies abdominal pain, nausea or vomiting Genitourinary Genitourinary ED: Denies dysuria, hematuria or urinary urgency Musculoskeletal Musculoskeletal: Reports back pain; Denies arthralgias or myalgias Integumentary Denies abscess, Abrasions or rash Neurologic Neurologic: Denies paresthesias or weakness EXAM <NITO Paige - Last Filed: 02/11/23 21:16> Physical Exam Const Vital Signs: 02/11/23 19:02 Temperature 97.8 F Temperature Source Temporal Pulse Rate 85 Respiratory Rate 16 Blood Pressure 192/100 H Blood Pressure Mean 130 Pulse Ox 95 Oxygen Delivery Method Nasal Cannula Positive well nourished, well developed and no apparent distress General Appearance ED: well developed HEENT Reports normocephalic and head/scalp atraumatic Mouth ED: Yes moist mucous membranes normal Eyes PERRL and EOMs intact bilaterally Neck full ROM and supple Chest Wall inspection of chest normal Resp normal respiratory effort and clear to auscultation bilaterally Cardio regular rate and regular rhythm GI soft to palpation, non-tender, non-distended and no masses Back/Spine normal ROM and normal to inspection Extremity normal to inspection and full ROM Neuro oriented x3, CN's II-XII intact bilaterally, moves all extremities, no focal motor deficits and no sensory deficits noted Sensorium / Orientation: awake and alert Motor Exam: strength 5/5 throughout Psych mental status grossly normal and thought process normal Skin no rashes or lesions noted and no wounds <Marcellus Hadley MD - Last Filed: 02/11/23 22:10> Physical Exam Const Vital Signs: 02/11/23 19:02 Temperature 97.8 F Temperature Source Temporal Pulse Rate 85 Respiratory Rate 16 Blood Pressure 192/100 H Blood Pressure Mean 130 Pulse Ox 95 Oxygen Delivery Method Nasal Cannula MDM <NITO Paige - Last Filed: 02/11/23 21:16> MDM MDM Narrative Medical decision making narrative: Patient presenting today due to an exacerbation of her chronic lower back pain and left-sided chest pain that started this evening. She denies any significant past cardiac history. History of COPD on supplemental O2 chronically. She is not feeling short of breath. Labs to be obtained for leukocytosis, anemia, electrolyte abnormality, ACS. EKG is normal sinus rhythm, initial troponin WNL. Chest x-ray negative for any acute cardiopulmonary findings she has been given a lidocaine patch and Toradol for her back. She reports that she was in pain management for her back pain but did not get any relief of her symptoms so she stopped going. On reexamination she reports her back pain has improved. I encouraged her to follow-up with her PCP as she may benefit from going to pain management again. She has been given return instructions and will be discharged home in stable condition. She is comfortable with plan. Lab Data Attestation: I reviewed the patient's lab results. Labs: Laboratory Results - last 24 hr 02/11/23 02/11/23 02/11/23 19:20 19:20 21:37 WBC 11.9 H RBC 5.33 Hgb 13.8 Hct 43.9 MCV 82.4 MCH 25.9 L MCHC 31.4 L RDW Std Deviation 44.8 H RDW Coeff of Ronny 15.1 H Plt Count 355 MPV 8.6 Immature Gran % (Auto) 0.600 Neut % (Auto) 75.3 H Lymph % (Auto) 14.7 L Baldwin % (Auto) 6.1 Eos % (Auto) 2.9 Baso % (Auto) 0.4 Absolute Neuts (auto) 9.0 H Absolute Lymphs (auto) 1.74 Nucleated RBC % 0 Sodium 135 L Potassium 3.9 Chloride 98 Carbon Dioxide 31.0 Anion Gap 6 BUN 13 Creatinine 0.92 Estim Creat Clear Calc 45.65 Est GFR (MDRD) Af Amer 78 Est GFR (MDRD) Non-Af 64 BUN/Creatinine Ratio 14.1 Glucose 120 H Calcium 10.0 Troponin I High Sens 12 13 Radiography X-Ray: Read by ED Physician and Read by Radiologist Diagnostic Testing: Clinical Impression(s) from Imaging Studies Chest X-Ray 02/11/23 19:50 IMPRESSION: Normal x-ray examination of the chest. Electronically Signed: Festus Durham MD at 20:07 EDT , EKG Initial EKG: Comments: 70 bpm, normal sinus rhythm, no ST elevation, no signs of cardiac ischemia, reviewed and interpreted by attending ED physician <Marcellus Hadley MD - Last Filed: 02/11/23 22:10> [facility] Narrative Medical decision making narrative: Patient presenting today due to an exacerbation of her chronic lower back pain and left-sided chest pain that started this evening. She denies any significant past cardiac history. History of COPD on supplemental O2 chronically. She is not feeling short of breath. Labs to be obtained for leukocytosis, anemia, electrolyte abnormality, ACS. EKG is normal sinus rhythm, initial troponin WNL. Chest x-ray negative for any acute cardiopulmonary findings she has been given a lidocaine patch and Toradol for her back. She reports that she was in pain management for her back pain but did not get any relief of her symptoms so she stopped going. On reexamination she reports her back pain has improved. I encouraged her to follow-up with her PCP as she may benefit from going to pain management again. She has been given return instructions and will be discharged home in stable condition. She is comfortable with plan. I have personally performed a face to face assessment of the patient and have reviewed the JOSÉ MIGUEL Note. I performed a substantive portion of the visit including all aspects of the following. My hollingsworth findings include: History is chronic back pain, chest pain with history of COPD Exam is afebrile. Vital signs noted. Regular rate and rhythm. Diminished breath sounds bilateral bases. Medical Decision Making I reviewed and interpreted her chest x-ray and see no evidence of acute process, I do not feel antibiotics are indicated. She was given medications for her back pain and feels improved. She states she is already seen pain management and a spine surgeon. Check delta troponins. I reviewed her laboratory work and her delta troponins are negative. Discharge. I interpreted her EKG as normal sinus rhythm without acute ST changes, no STEMI. Other additions or changes: [None] Lab Data Labs: Laboratory Results - last 24 hr 02/11/23 02/11/23 02/11/23 19:20 19:20 21:37 WBC 11.9 H RBC 5.33 Hgb 13.8 Hct 43.9 MCV 82.4 MCH 25.9 L MCHC 31.4 L RDW Std Deviation 44.8 H RDW Coeff of Ronny 15.1 H Plt Count 355 MPV 8.6 Immature Gran % (Auto) 0.600 Neut % (Auto) 75.3 H Lymph % (Auto) 14.7 L Baldwin % (Auto) 6.1 Eos % (Auto) 2.9 Baso % (Auto) 0.4 Absolute Neuts (auto) 9.0 H Absolute Lymphs (auto) 1.74 Nucleated RBC % 0 Sodium 135 L Potassium 3.9 Chloride 98 Carbon Dioxide 31.0 Anion Gap 6 BUN 13 Creatinine 0.92 Estim Creat Clear Calc 45.65 Est GFR (MDRD) Af Amer 78 Est GFR (MDRD) Non-Af 64 BUN/Creatinine Ratio 14.1 Glucose 120 H Calcium 10.0 Troponin I High Sens 12 13 Radiography Diagnostic Testing: Clinical Impression(s) from Imaging Studies Chest X-Ray 02/11/23 19:50 IMPRESSION: Normal x-ray examination of the chest. Electronically Signed: Festus Durham MD at 20:07 EDT , Discharge Plan Triage Chief Complaint: Back ED Midlevel Provider: Megha Live ED Provider: Marcellus Hadley Dx/Rx/DC Orders Clinical Impression: Acute exacerbation of chronic low back pain, Chest pain Instructions: ED Back Pain (Acute or Chronic), ED Chest Pain, Uncertain Cause Prescriptions: New lidocaine-menthol 5-6 % kit See Rx Instructions .ROUTE .COMPLEX Qty: 1 0RF Rx Instructions: apply LIDIOCAINE PATCH once a day/may leave on for up to 12 hrs; apply MENTHOL GEL 1 - 4 times/day as needed for pain. No Action azelastine-fluticasone 137-50 mcg/spray spray,non-aerosol 1 spray intranasal BID Qty: 23 6RF Rx Instructions: administer into each nostril Breztri Aerosphere 160-9-4.8 mcg/actuation HFA aerosol inhaler 2 inh inhalation BID nebulizer inhalation 3XD Gemtesa 75 mg tablet 75 mg PO DAILY cholecalciferol (vitamin D3) 25 mcg (1,000 unit) capsule 25 mcg PO DAILY prazosin 1 MG capsule 1 mg PO DAILY sertraline 100 mg tablet 200 mg PO DAILY prazosin 2 mg capsule 2 mg PO QHS aripiprazole 20 mg tablet 20 mg PO DAILY bupropion HCl 150 mg tablet extended release 24 hr 300 mg PO DAILY (DME) blood pressure monitor [Blood Pressure Kit] Kit See Rx Instructions .ROUTE .MEDSUPPLY Qty: 1 0RF Rx Instructions: Check daily and as needed (DME) Pulse oximeter See Rx Instructions .Route .MEDSUPPLY Qty: 1 0RF Rx Instructions: Monitor daily or as needed (DME) Ultra-Light Rollator Misc See Rx Instructions .ROUTE .MEDSUPPLY Qty: 1 0RF Rx Instructions: As directed amlodipine 5 mg tablet 5 mg PO DAILY Qty: 90 3RF (DME) underpads [Bed Underpads] Pad See Rx Instructions .Route Qty: 40 6RF Rx Instructions: R32. celecoxib 200 mg capsule 200 mg PO DAILY Qty: 60 0RF esomeprazole magnesium 20 mg capsule,delayed release(DR/EC) 20 mg PO DAILY Qty: 90 3RF lisinopril-hydrochlorothiazide 20-25 mg tablet 1 tab PO DAILY Qty: 90 3RF Primary Care Provider: Rosa Bragg Referrals: Rosa Bragg MD [Primary Care Provider] - 3-5 Days Activity Restrictions/Additional Instructions: Please follow-up with your PCP, please return for any worsening of symptoms. Disposition Disposition: Home, Self Care
[2023-02-11 19:39] LABS: Absolute Lymphocyte Count 1.74 X10^3/uL (0.83-4.51); Basophil# 0.05 X10^3/uL; Basophil% 0.4 % (0-1); Eosinophil# 0.34 X10^3/uL; Eosinophils% 2.9 % (0-5); Hematocrit 43.9 % (37-47); Hemoglobin 13.8 g/dL (12.0-15.0); Lymphocyte # 1.74 X10^3/ul (0.83-4.51); Lymphocyte % 14.7 % (19-41); Mean Corp Hgb Conc 31.4 g/dL (32-36); Mean Corpuscular Hgb 25.9 pg (27.0-32.0); Mean Corpuscular Volume 82.4 fL (81-99); Mean Platelet Vol. 8.6 fl (6.2-12.0); Monocyte# 0.72 X10^3/uL; Monocyte% 6.1 % (0-10); NRBC Flagged by Analyzer 0 % (0-5); Neutrophil # 8.95 X10^3/uL (2.7-7.7); Neutrophil % 75.3 % (47-70); Platelet Count 355 K/mm3 (150-450); RBC Distribution Width CV 15.1 % (11.6-14.6); RBC Distribution Width SD 44.8 fl (35.1-43.9); Red Blood Count 5.33 M/mm3 (4.2-5.4); White Blood Count 11.9 K/mm3 (4.4-11.0)
[2023-02-11] MEDS: Lidocaine 5% Patch 1 PATCH TOPICAL (19:47)
--- NOTE | 2023-02-11 19:50 | RAD_ITS ---
STUDY: X-RAY CHEST REASON FOR EXAM: Female, 67 years old. chest pain TECHNIQUE: Single AP portable view of the chest. COMPARISON: 11/27/2022. FINDINGS: The lungs are clear and expanded. There is no demonstrated pleural abnormality. Normal size heart. Normal mediastinum and magui. Normal visualized pulmonary arteries. Normal visualized aortic arch and descending thoracic aorta. Normal visualized thoracic spine. Normal visualized ribs, clavicles, and shoulders. There is no demonstrated abnormality of the visualized soft tissue structures of the upper abdomen. RAD/Chest 1 View (Portable) IMPRESSION: Normal x-ray examination of the chest. Electronically Signed: Festus Durham MD at 20:07 EDT ,
[2023-02-11 19:52] LABS: Anion Gap 6 (5-15); BUN 13 mg/dL (7-18); BUN/Creat Ratio 14.1 RATIO (10-20); Chloride 98 mmol/L (98-107); Creatinine, Serum 0.92 mg/dL (0.55-1.02); EST Glomerular Filtration Rate 64 mL/min (>60); Est Glom Filt Rate - Afr Amer 78 mL/min (>60); Estimated Creatinine Clearance 45.65 ml/min; Glucose 120 mg/dL (74-106); Potassium 3.9 mmol/L (3.5-5.1); Sodium Level 135 mmol/L (136-145); Troponin-I HS 12 pg/mL (3.0-54.0)
[2023-02-11] MEDS: Ketorolac 15 MG/ML Vial IV (21:22)
[2023-02-11 21:59] LABS: Troponin-I HS 13 pg/mL (3.0-54.0)
[2023-02-11 22:26] VITALS: BP 139/69; PULSE 78; RESP 17
== END 2023-02-11 22:45 | disposition home or self-care (01) ==
PROVIDERS: Physician Assistant; Emergency Provider Emergency Medicine; PCP Internal Medicine; Visit Provider Emergency Medicine
DX: M54.50 Low back pain, unspecified (principal); J44.9 Chronic obstructive pulmonary disease, unspecified; G89.29 Other chronic pain; M48.061 Spinal stenosis, lumbar region without neurogenic claudication; R07.9 Chest pain, unspecified; K21.9 Gastro-esophageal reflux disease without esophagitis; R32 Unspecified urinary incontinence; I10 Essential (primary) hypertension; F17.210 Nicotine dependence, cigarettes, uncomplicated; Z99.81 Dependence on supplemental oxygen; Z79.899 Other long term (current) drug therapy
CPT/HCPCS: 71045; 80048; 84484; 85025; 93005; 96374; 99283; A4216

== ENCOUNTER 2023-02-14 00:50 | Emergency (ER) | payer MEDICARE, MEDICAID, SELFPAY ==
[2023-02-14 00:51] VITALS: BP 192/107; PULSE 84; RESP 18; TEMP 36.6; O2SAT 96; BMI 40.6
[2023-02-14 01:08] VITALS: BP 169/89; PULSE 78
--- NOTE | 2023-02-14 01:10 | CT_ITS ---
EXAM: CT HEAD WITHOUT INTRAVENOUS CONTRAST CLINICAL INDICATION: headache headache TECHNIQUE: Multiple axial images were obtained of the head without intravenous contrast. This CT exam was performed using one or more of the following dose reduction techniques: automated exposure control, adjustment of the mA and/or kV according to patient size, and/or use of iterative reconstruction technique. RADIATION DOSE: CTDIvol = 44.99 mGy, DLP = 846.73 mGy-cm COMPARISON: No relevant prior studies available. FINDINGS: BRAIN AND EXTRA-AXIAL SPACES: There are microvascular changes in supratentorial white matter. No intra- or extra-axial hemorrhage. No evidence of acute infarct. No intracranial mass or mass effect. There is preservation of the figueredo/white matter interface. Posterior fossa structures are unremarkable. Ventricles are appropriate for age. No hydrocephalus. Basal cisterns are patent. BONES/JOINTS: Unremarkable. No discrete lytic or blastic abnormalities. VASCULATURE: There is mild atherosclerotic calcification of the vertebral and cavernous carotid arteries. SINUSES: Unremarkable as visualized. Clear. MASTOID AIR CELLS: Unremarkable. Clear. ORBITS: Visualized globes, extraocular muscles, optic nerves and retrobulbar fat appear unremarkable. CT/Brain/Head without Contrast IMPRESSION: 1. Mild chronic involutional changes of the brain. 2. No demonstrated acute intracranial process. Electronically Signed: Dhruv Bocanegra MD at 3:02 EDT Reading Location ID and State: [facility] / [place] , Service support ,
--- NOTE | 2023-02-14 01:15 | EDS_ITS ---
HPI History of Present Illness Chief Complaint: Hypertension Informant: patient Narrative Narrative: Presents by private vehicle after roommate checked her blood pressure this evening 212/125. She reported headache and nausea. No chest pains or shortness of breath. Chronic 3 L oxygen with COPD history. No vomiting or diarrhea. She states she has been compliant with her blood pressure medicines. Amlodipine 5 mg, lisinopril and hydrochlorothiazide. She takes prazosin 1 mg at night. She had 2 mg prazosin in her records for nighttime use she states she takes this for nightmares. She has not taken her nighttime prazosin. Of note seen 3 days ago in ED for back pain and blood pressure systolic 190s over 100. Previous blood pressure 150s to 160s systolic for which she states is more of her baseline. [facility] Medical History Anxiety and depression Arthritis COPD (chronic obstructive pulmonary disease) Cough due to bronchospasm Degenerative lumbar spinal stenosis Dyspnea on exertion Encounter for screening for malignant neoplasm of lung in current smoker with 30 pack year history or greater GERD (gastroesophageal reflux disease) Hypertension Kidney stones Oral thrush PTSD (post-traumatic stress disorder) Spinal stenosis Tobacco use disorder, continuous Home Medications prazosin 1 mg capsule 1 mg PO DAILY blood pressure 09/29/17 [History Last Taken 01/08/21] sertraline 100 mg tablet 200 mg PO DAILY depression 10/23/20 [History Last Taken 01/08/21] aripiprazole 20 mg tablet 20 mg PO DAILY mood 01/06/21 [History Last Taken 01/08/21] prazosin 2 mg capsule 2 mg PO QHS blood pressure 01/06/21 [History Last Taken 01/08/21] Pulse oximeter #1 ea 02/05/21 [Rx Last Taken Unknown] blood pressure monitor (Blood Pressure Kit) #1 ea 02/05/21 [Rx Last Taken Unknown] walker (Ultra-Light Rollator misc) #1 ea 03/24/21 [Rx Last Taken Unknown] bupropion HCl 150 mg 24 hr tablet, extended release 300 mg PO DAILY mood 05/05/21 [History Last Taken Unknown] budesonide 160 mcg-glycopyr 9 mcg-formot 4.8 mcg/actuation HFA inhaler (Breztri Aerosphere) 2 inh inhalation BID 12/07/21 [History Last Taken Unknown] amlodipine 5 mg tablet 5 mg PO DAILY blood pressure #90 tabs 01/14/22 [Rx Last Taken Unknown] azelastine-fluticasone 137 mcg-50 mcg/spray nasal spray 1 spray intranasal BID #23 grams 01/26/22 [Rx Last Taken Unknown] underpads (Bed Underpads) #40 ea 02/16/22 [Rx Last Taken Unknown] celecoxib 200 mg capsule 200 mg PO DAILY #60 caps 06/28/22 [Rx Last Taken Unknown] vibegron 75 mg tablet (Gemtesa) 75 mg PO DAILY 07/14/22 [History Last Taken Unknown] cholecalciferol (vitamin D3) 25 mcg (1,000 unit) capsule 25 mcg PO DAILY 07/15/22 [History Last Taken Unknown] esomeprazole magnesium 20 mg capsule,delayed release 20 mg PO DAILY gerd #90 caps 08/12/22 [Rx Last Taken Unknown] lisinopril 20 mg-hydrochlorothiazide 25 mg tablet 1 tab PO DAILY blood pressure #90 tabs 08/12/22 [Rx Last Taken Unknown] nebulizer inhalation 3XD 12/08/22 [History Last Taken Unknown] lidocaine 5 % patch and menthol 6 % gel topical kit See Rx Instructions topical .COMPLEX #1 ea 02/11/23 [Rx Last Taken Unknown] Allergy/AdvReac Type Severity Reaction Status Date / Time prednisone AdvReac Other Verified 02/14/23 00:54 Sulfa (Sulfonamide AdvReac Nausea Verified 02/14/23 00:54 Antibiotics) Family History Mother Diabetes Hypertension Breast cancer Father Heart disease Hypertension Myocardial infarction, Onset Age: 46 Surgical History History of History of D&C History of hand surgery History of hysterectomy Social History Smoking Status: Current every day smoker tobacco type: cigarettes Tobacco: How many years used: 36 alcohol intake: never substance use type: does not use what type of physical activity do you participate in: none ROS ROS ED Constitutional Constitutional ED: Denies chills, fever(s) or sweats Eyes Eyes: Denies change in vision ENT ENT ED: Denies dysphagia or sore throat Cardiovascular Cardiovascular: Denies chest pain, leg edema, palpitations or racing heartbeat Respiratory/Chest Respiratory/Chest: Denies cough, dyspnea or dyspnea on exertion Gastrointestinal Gastrointestinal: Reports nausea; Denies abdominal pain, diarrhea or vomiting Genitourinary Genitourinary ED: Denies dysuria, hematuria or urinary frequency Musculoskeletal Musculoskeletal: Denies back pain, extremity pain or neck pain Integumentary Denies rash or wounds Neurologic Neurologic: Reports headache(s); Denies paresthesias or weakness EXAM Physical Exam Const Vital Signs: 02/14/23 00:51 02/14/23 00:55 02/14/23 01:08 Temperature 97.8 F Temperature Source Temporal Pulse Rate 84 78 Respiratory Rate 18 Respiratory Pattern Normal Blood Pressure 192/107 H 169/89 H Blood Pressure Mean 135 115 Pulse Ox 96 Oxygen Delivery Method Nasal Cannula Oxygen Flow Rate (L/min) 3 02/14/23 01:30 02/14/23 02:46 02/14/23 03:06 Temperature Temperature Source Pulse Rate 76 73 73 Respiratory Rate 17 19 H 17 Respiratory Pattern Blood Pressure 169/89 H 174/85 H 169/89 H Blood Pressure Mean 115 114 Pulse Ox 96 95 95 Oxygen Delivery Method Nasal Cannula Nasal Cannula Oxygen Flow Rate (L/min) 3 3 Positive well nourished and well developed Constitutional Narrative: 3 L nasal cannula no respiratory distress. General Appearance ED: well developed and NAD HEENT Reports moist mucous membranes normocephalic and atraumatic Eyes PERRL, EOMs intact bilaterally and conjunctivae normal General Eye ED: Yes normal appearance of both eyes Neck no lymphadenopathy and supple Neck Narrative: No meningismus General: Negative for tenderness Chest Wall Chest: Negative for tenderness Resp normal respiratory effort and normal air movement Effort and Inspection: symmetric chest movement; Negative for respiratory distress Cardio regular rate, regular rhythm and no murmurs Peripheral Pulses: pulses 2+ throughout GI normal to inspection, nondistended, normoactive bowel sounds and non-tender Palpation: Negative for guarding or rebound tenderness present Back/Spine no CVA tenderness and no thoracic nor lumbar tenderness Extremity normal to inspection General Extremety ED: Negative for edema or tenderness General Extremity: Negative for edema Neuro oriented x3, CN's II-XII intact bilaterally and no sensory deficits noted Sensorium / Orientation: awake and alert Skin no rashes or lesions noted and no wounds MDM MDM MDM Narrative Medical decision making narrative: Interventions / MDM: Differential diagnosis: Accelerated hypertension, headache Diagnosis considered but do not suspect: No clinical aortic dissection symptoms or pulmonary edema symptoms. My EKG interpretation: N/A Imaging independently reviewed and interpreted by myself: CT brain: No acute process, no intracranial hemorrhage. External documents reviewed: N/A Test considered but not ordered:N/A ED course: Arrival blood pressure 192/107, during my eval she was 116/89 without any intervention. She reported mild headache however improving with nausea. CT scan be ordered, IV established we will check basic labs. Will give Zofran. Re-evaluation: 0205: Nausea improved still has headache. My review of CT scan negative. Will order Tylenol. Blood pressure 160/90 on reevaluation. More of her baseline. She for prazosin however not in the formulary. She will take when she goes home. Pending final read on CT at this time. Final read per radiology also negative for any acute process. Discharged with outpatient follow-up. Disposition discussed with patient/family/significant other: Patient Case discussed with consulting clinician: N/A Lab Data Attestation: I reviewed the patient's lab results. Labs: Laboratory Results - last 24 hr 02/14/23 02/14/23 01:25 01:25 WBC 9.9 RBC 4.98 Hgb 13.1 Hct 41.3 MCV 82.9 MCH 26.3 L MCHC 31.7 L RDW Std Deviation 45.8 H RDW Coeff of Ronny 15.2 H Plt Count 324 MPV 8.6 Immature Gran % (Auto) 0.600 Neut % (Auto) 75.1 H Lymph % (Auto) 14.7 L Payne % (Auto) 6.0 Eos % (Auto) 3.1 Baso % (Auto) 0.5 Absolute Neuts (auto) 7.4 Absolute Lymphs (auto) 1.46 Nucleated RBC % 0 Sodium 136 Potassium 3.8 Chloride 100 Carbon Dioxide 27.0 Anion Gap 9 BUN 15 Creatinine 0.94 Estim Creat Clear Calc 44.67 Est GFR (MDRD) Af Amer 76 Est GFR (MDRD) Non-Af 63 BUN/Creatinine Ratio 16.0 Glucose 132 H Calcium 10.3 H Radiography Diagnostic Testing: Clinical Impression(s) from Imaging Studies Brain CT 02/14/23 01:10 IMPRESSION: 1. Mild chronic involutional changes of the brain. 2. No demonstrated acute intracranial process. Electronically Signed: Dhruv Bocanegra MD at 3:02 EDT , Discharge Plan Triage Chief Complaint: Hypertension ED Provider: Juan Daniel Woo Dx/Rx/DC Orders Clinical Impression: Hypertension, COPD (chronic obstructive pulmonary disease), Headache Instructions: ED High Blood Pressure Hypertension Prescriptions: No Action azelastine-fluticasone 137-50 mcg/spray spray,non-aerosol 1 spray intranasal BID Qty: 23 6RF Rx Instructions: administer into each nostril Breztri Aerosphere 160-9-4.8 mcg/actuation HFA aerosol inhaler 2 inh inhalation BID nebulizer inhalation 3XD Gemtesa 75 mg tablet 75 mg PO DAILY cholecalciferol (vitamin D3) 25 mcg (1,000 unit) capsule 25 mcg PO DAILY prazosin 1 MG capsule 1 mg PO DAILY sertraline 100 mg tablet 200 mg PO DAILY prazosin 2 mg capsule 2 mg PO QHS aripiprazole 20 mg tablet 20 mg PO DAILY bupropion HCl 150 mg tablet extended release 24 hr 300 mg PO DAILY lidocaine-menthol 5-6 % kit See Rx Instructions .ROUTE .COMPLEX Qty: 1 0RF Rx Instructions: apply LIDIOCAINE PATCH once a day/may leave on for up to 12 hrs; apply MENTHOL GEL 1 - 4 times/day as needed for pain. (DME) blood pressure monitor [Blood Pressure Kit] Kit See Rx Instructions .ROUTE .MEDSUPPLY Qty: 1 0RF Rx Instructions: Check daily and as needed (DME) Pulse oximeter See Rx Instructions .Route .MEDSUPPLY Qty: 1 0RF Rx Instructions: Monitor daily or as needed (DME) Ultra-Light Rollator Misc See Rx Instructions .ROUTE .MEDSUPPLY Qty: 1 0RF Rx Instructions: As directed amlodipine 5 mg tablet 5 mg PO DAILY Qty: 90 3RF (DME) underpads [Bed Underpads] Pad See Rx Instructions .Route Qty: 40 6RF Rx Instructions: R32. celecoxib 200 mg capsule 200 mg PO DAILY Qty: 60 0RF esomeprazole magnesium 20 mg capsule,delayed release(DR/EC) 20 mg PO DAILY Qty: 90 3RF lisinopril-hydrochlorothiazide 20-25 mg tablet 1 tab PO DAILY Qty: 90 3RF Primary Care Provider: Rosa Bragg Referrals: Rosa Bragg MD [Primary Care Provider] - Activity Restrictions/Additional Instructions: Take your prazosin when you get home. Continue home medications. Blood pressure improved without any intervention. CT brain negative. Labs are stable. Disposition Disposition: Home, Self Care Discharge Date/Time: 02/14/23 03:26
[2023-02-14 01:30] VITALS: BP 169/89; PULSE 76; RESP 17; O2SAT 96
[2023-02-14] MEDS: Ondansetron 4 MG/2 ML Vial IV (01:30)
[2023-02-14 01:44] LABS: Absolute Lymphocyte Count 1.46 X10^3/uL (0.83-4.51); Absolute Neutrophil Count 7.4 X10^3/uL (2.0-7.7); Basophil# 0.05 X10^3/uL; Basophil% 0.5 % (0-1); Eosinophil# 0.31 X10^3/uL; Eosinophils% 3.1 % (0-5); Hematocrit 41.3 % (37-47); Hemoglobin 13.1 g/dL (12.0-15.0); Lymphocyte # 1.46 X10^3/ul (0.83-4.51); Lymphocyte % 14.7 % (19-41); Mean Corp Hgb Conc 31.7 g/dL (32-36); Mean Corpuscular Hgb 26.3 pg (27.0-32.0); Mean Corpuscular Volume 82.9 fL (81-99); Mean Platelet Vol. 8.6 fl (6.2-12.0); NRBC Flagged by Analyzer 0 % (0-5); Neutrophil # 7.44 X10^3/uL (2.7-7.7); Neutrophil % 75.1 % (47-70); Platelet Count 324 K/mm3 (150-450); RBC Distribution Width CV 15.2 % (11.6-14.6); RBC Distribution Width SD 45.8 fl (35.1-43.9); Red Blood Count 4.98 M/mm3 (4.2-5.4); White Blood Count 9.9 K/mm3 (4.4-11.0)
[2023-02-14 01:54] LABS: Anion Gap 9 (5-15); BUN 15 mg/dL (7-18); Calcium,Total 10.3 mg/dL (8.5-10.1); Chloride 100 mmol/L (98-107); Creatinine, Serum 0.94 mg/dL (0.55-1.02); EST Glomerular Filtration Rate 63 mL/min (>60); Est Glom Filt Rate - Afr Amer 76 mL/min (>60); Estimated Creatinine Clearance 44.67 ml/min; Glucose 132 mg/dL (74-106); Potassium 3.8 mmol/L (3.5-5.1); Sodium Level 136 mmol/L (136-145)
[2023-02-14] MEDS: Acetaminophen 500 MG Tablet 1000 MG PO (02:20)
[2023-02-14 02:46] VITALS: BP 174/85; PULSE 73; RESP 19; O2SAT 95
[2023-02-14 03:06] VITALS: BP 169/89; PULSE 73; RESP 17; O2SAT 95
== END 2023-02-14 03:26 | disposition home or self-care (01) ==
PROVIDERS: Emergency Provider Emergency Medicine; PCP Internal Medicine; Visit Provider Emergency Medicine
DX: I10 Essential (primary) hypertension (principal); J44.9 Chronic obstructive pulmonary disease, unspecified; R51.9 Headache, unspecified; F17.210 Nicotine dependence, cigarettes, uncomplicated; Z99.81 Dependence on supplemental oxygen; Z79.899 Other long term (current) drug therapy
CPT/HCPCS: 70450; 80048; 85025; 96374; 99284; A4216; J2405

== ENCOUNTER → 2023-02-21 | Outpatient (CLI) | payer MEDICARE, MEDICAID, SELFPAY ==
[2023-02-21 17:41] LABS: Amphetamine Urine VISTA NEGATIVE (<1000 ng/mL); Barbiturate Urine VISTA NEGATIVE (< 200 ng/mL); Benzodiazepine Urine VISTA NEGATIVE (< 200 ng/mL); Cocaine Urine VISTA NEGATIVE (< 300 ng/mL); Ecstacy Urine VISTA NEGATIVE (< 500 ng/mL); Methadone Urine VISTA NEGATIVE (< 300 ng/mL); PCP Urine VISTA NEGATIVE (< 25 ng/mL); THC Urine VISTA POSITIVE (< 50 ng/mL); Vista UDS pH Range 5
== END | disposition home or self-care (01) ==
LOC: LAB 16:29
PROVIDERS: PCP Internal Medicine; Referring Provider Anesthesiology Pain Medicine; Visit Provider Anesthesiology Pain Medicine
DX: F11.20 Opioid dependence, uncomplicated (principal)
CPT/HCPCS: 80307

== ENCOUNTER → 2023-03-24 | Outpatient (CLI) | payer MEDICARE, MEDICAID, SELFPAY ==
--- NOTE | 2023-03-24 09:55 | PR.HP_ITS ---
History of Present Illness General Arrival date:: 03/24/23 Arrival time:: 09:55 Date of Referral:: 02/03/23 Date of Evaluation: 03/24/23 Referring Physician: Dr. Grace Yao @ [facility] Primary Diagnosis: COPD Gold Classification III: severe History of Present Pulmonary Event mMRC Breathless Scale: When is the patient short of breath? Y/N Grade: Description of Breathlessness: 0 I only get breathless with strenuous exercise. 1 I get short of breath when hurrying on level ground or walking up a slight hill. 2 On level ground, I walk slower than people of the same age because of breathless, or have to stop for breath when walking at my own pace. y 3 I stop for breath after walking 100 yards or after a few minutes on level ground. y 4 I am too breathless to leave the house or I am breathless when dressing. Medications Home Medications prazosin 1 mg capsule 1 mg PO DAILY blood pressure 09/29/17 sertraline 100 mg tablet 200 mg PO DAILY depression 10/23/20 aripiprazole 20 mg tablet 20 mg PO DAILY mood 01/06/21 prazosin 2 mg capsule 2 mg PO QHS blood pressure 01/06/21 Pulse oximeter #1 ea 02/05/21 blood pressure monitor (Blood Pressure Kit) #1 ea 02/05/21 walker (Ultra-Light Rollator [facility] [place]) #1 ea 03/24/21 bupropion HCl 150 mg 24 hr tablet, extended release 300 mg PO DAILY mood 05/05/21 budesonide 160 mcg-glycopyr 9 mcg-formot 4.8 mcg/actuation HFA inhaler (Breztri Aerosphere) 2 inh inhalation BID 12/07/21 amlodipine 5 mg tablet 5 mg PO DAILY blood pressure #90 tabs 01/14/22 azelastine-fluticasone 137 mcg-50 mcg/spray nasal spray 1 spray intranasal BID #23 grams 01/26/22 underpads (Bed Underpads) #40 ea 02/16/22 celecoxib 200 mg capsule 200 mg PO DAILY #60 caps 06/28/22 vibegron 75 mg tablet (Gemtesa) 75 mg PO DAILY 07/14/22 cholecalciferol (vitamin D3) 25 mcg (1,000 unit) capsule 25 mcg PO DAILY 07/15/22 esomeprazole magnesium 20 mg capsule,delayed release 20 mg PO DAILY gerd #90 caps 08/12/22 lisinopril 20 mg-hydrochlorothiazide 25 mg tablet 1 tab PO DAILY blood pressure #90 tabs 08/12/22 nebulizer inhalation 3XD 12/08/22 lidocaine 5 % patch and menthol 6 % gel topical kit See Rx Instructions topical .COMPLEX #1 ea 02/11/23 budesonide 160 mcg-glycopyr 9 mcg-formot 4.8 mcg/actuation HFA inhaler (Breztri Aerosphere) 2 inh inhalation BID 03/24/23 prednisone 10 mg tablet 10 mg PO DAILY 03/24/23 Allergies Allergies prednisone Adverse Reaction (Verified 02/14/23 00:54) Other Sulfa (Sulfonamide Antibiotics) Adverse Reaction (Verified 02/14/23 00:54) Nausea Secretions Thick:: Yes Thin:: No Amount/Day:: 1 TSP Cough:: Yes AM: Yes Sleep Disorder Evaluation Hx of Sleep Apnea: No Do you snore loudly (louder than talking or can be heard through closed doors)?: Yes (Had sleep study completed and was negative) Do you often feel tired/ fatigued/ sleepy during daytime?: Yes Has anyone observed you stop breathing during sleep?: No History of Hypertension (for STOP score): Yes STOP Results: Positive Medical Utilization Medical Devices Do you use a peak flow meter at home?: No Do you use a spacer device with your inhalers?: No Medical Utilization Number of hospital visits in the last year?: 0 Number of emergency room visits in the last year?: 3 Do you see your physician on a regular schedule?: Yes How often?: PCP every 3 month; Pulmonary 3 months Advanced Directives Advanced Directives 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 Living Will: Yes Advance Directives Information Provided: No Advance Directives on File: Yes DNR Order?:: No MOLST See MOLST form: No Past Medical History Covid-19 Screening Physicial Symptoms Fever: No Unexplained muscle aches: No Current respiratory symptoms: Yes (shortness of breath due to COPD) Upper respiratory infections symptoms: No Gastro-intestinal symptoms: Yes (recently having periods of nausea from ulcer) [id number] symptoms: No Other Clinical Concerns Has tested positive for COVID-19 in last 30 days: No Date of testin03/24/23 (fully vaccinated) Exposure Risk Had contact w/person w/symptoms or Covid-19 (+) last 14 days: No Has High Risk Exposures ID'd by Health dept/Inf Control team: No Pertinent Comorbidities 65 years or older:: Yes Lives in Assisted Living facility:: No Has a chronic lung disease or moderate to severe asthma:: Yes Has a serious heart condition:: No Immunocompromised:: No Severely obese (Body Mass Index of 40 or higher):: No Diabetic:: No Has chronic kidney disease undergoing dialysis:: No Has liver disease:: No Medical History Medical History Anxiety and depression Arthritis COPD (chronic obstructive pulmonary disease) Cough due to bronchospasm Degenerative lumbar spinal stenosis Dyspnea on exertion Encounter for screening for malignant neoplasm of lung in current smoker with 30 pack year history or greater GERD (gastroesophageal reflux disease) Hypertension Kidney stones Oral thrush PTSD (post-traumatic stress disorder) Spinal stenosis Tobacco use disorder, continuous Surgical History Surgical History History of History of D&C History of hand surgery History of hysterectomy Significant Family History Family History Mother Diabetes Hypertension Breast cancer Father Heart disease Hypertension Myocardial infarction, Onset Age: 46 Current/ Previous Services Pulmonary Rehab:: No Social History Smoking History Smoking Status: Former smoker (quit 1 year ago) Hx Tobacco Use: Yes Hx Smoking Exposure: Yes Alcohol Use Alcohol Usage: No Substance Abuse Hx Substance Use: No Occupation Occupation (List type of work in comments):: Retired Hobbies, Recreation, Social Activities Hobbies: Other Recreational Activities: I am able to engage in a few activities Functioning ADL/IADL Current Ability Current Ability: Independent: Self-Care (e.g.,grooming, dressing, & bathing), Independent: Ambulation, Independent: Transfer and Independent: Household tasks (e.g., light meal prep, laundry, shopping) Pt Functioning Prior to Problem Prior Functioning: Self-Care (e.g.,grooming, dressing, & bathing): Independent, Ambulation: Independent, Transfer: Independent and Household tasks (e.g., light meal prep, laundry, shopping): Independent Social Environment Status Marital Status: Current Living Arrangements Living Environment:: Family Children How many children do you have?: 2 (1-) Do any of your children live nearby?: Yes (lives with daughter) Safety Do you feel safe in your surroundings?: Yes Review of Systems Review of Systems Review of Systems Respiratory: Reports Cough, SOB at Rest (when supine in bed.), SOB upon Exertion, Sputum production (thick productive cough in the morning, sometimes hard to cough up.), Wheezing, Appetite, Normal, Dizziness/Lightheadedness (lightheadedness form time to time), Fatigue and Sleep, Normal (sleeps a few hours at a time and awakens but is able to go back to sleep) Pain Is Patient Pain Free?: No Pain Location: none Pain Level: 0/10 Risk Factor Assessment Vital Signs Temperature: 97.9 F Pulse Rate: 120 Respiratory Rate: 18 Pulse Ox: 93 Blood Pressure: 144/90 Diabetes Nutrition Referral for Diabetes: No Obesity Height: 5 ft 1 in Weight:: 224 lb Weight in Pounds: 224.0 lbs Weight Source: Estimated by Patient Body Mass Index (BMI): 42.3 Nutritional Referral for Obesity: Yes Physical Activity Physical Inactivity: None Risk Stratification Risk Guidelines: Lowest Risk: Risk Factor for Smoking, Risk Factor for Dyslipidemia and Risk Factor for Diabetes and Highest Risk: Risk Factor for Obesity (40+), Risk Factor for Hypertension (144/90) and Risk Factor for Sedentary Lifestyle For Smoking Smoking Risk Guidelines For Dyslipidemia Dyslipidemia Risk Guidelines For Diabetes Mellitus Diabetes Risk Guidelines For Obesity/Overweight Obesity/Overweight Risk Guidelines For Hypertension Hypertension Risk Guidelines For Sedentary Lifestyle Sedentary Lifestyle Risk Guidelines For Depression Depression Risk Guidelines Motivation Motivation to Participate On a scale of 1 to 10, how prepared are you to commit to attending program?: 10 What do you see as barriers to successfully being able to complete the program?: none What do you see as the benefits of succesfully completing the program? In other words, what do you hope to get out of participating in the program?: increase walking, healthier Are there issues you are dealing with that will interfere with completing the program?: none (except scheduled doctors appointments) Do you have a spouse or signficant other, family or friends who will help support you to complete the program?: yes
--- NOTE | 2023-03-24 09:55 | PCM.PR.TP ---
General Information2 General Information Admitting Diagnosis: COPD GOLD III: severe Secondary Diagnosis: HTN, Obesity Gold Classification:: GOLD 3: Severe PFT FEV1:: 0.91 FVC:: 1.74 FEV1/FVC%:: 52 Personal Learning Style/Barriers Personal Learning Style:: Audio/Visual and Written Barriers to Learning: Vision impaired Stage of change r/t lifestyle modifications: Prepared Educational Classes [place]: Living with Chronic Lung Disease: Initial Assessment, Breathing Retraining: Initial Assessment, Exercise: Initial Assessment, Energy Conservation: Initial Assessment, Preventing infection: Initial Assessment, Nutrition: Initial Assessment (referral to [facility] program), Airway clearance: Initial Assessment (Acapella device instruction) and Oxygen therapy: Initial Assessment Education/Goals Individual Counseling: Initial Assessment: Overweight/Obesity ([facility] program) [place] Patient Goals: Increase muscle strength: Initial Assessment, Experience less dyspnea: Initial Assessment, Improve energy level: Initial Assessment, Participate in home exercise: Initial Assessment, Improve the ability to cope with ADLs: Initial Assessment and Improve my quality of life: Initial Assessment Exercise - Initial Assessment Visit Date of Eval: 03/24/23 Session Number:: 0 (Pre-program evaluation) Problem/Goals Problems: Deconditioning, No regular exercise, Knowledge deficit exercise guidelines and Knowledge deficit exercise safety Goals:: Aerobic exercise 30-60 mins x 12 weeks [36 sessions] Functional Capacity Test Number of feet walked: 260 Lowest SPO2 %: 88 O2 L/M: 3 (wears 3 liters 24/7 at home) Physician Prescribed Exercise Modalities: Treadmill, NuStep and SciFit Frequency (days/week): 3 Duration (Minutes):: 30-45 Intensity: 60-80% of age predicted maximum heart rate reserve Current METSs:: 2.0 Target HR:: 113 Resting Blood Pressure: 144/90 Minimum SpO2 with exercise: 93 EKG Type: sinus rhythm Plan Plan and Plan to Review:: Benefits of exercise, Core components of exercise, How to measure dyspnea level, How to monitor dyspnea level, Exercise intensity, Home exercise guidelines and Aj: 3-4/11-13 Nutrition/Wt Mgmt - Initial Visit Date of Eval: 03/24/23 Session Number:: 0 (Pre-program evaluation) Problems/Goals Problems: Overweight Weight Management Knowledge Deficit Management of:: Overweight Admit Height:: 5 ft 1 in Admit Weight:: 224 lb Admit BMI:: 42.3 Intervention Referral to dietitian:: Yes Will attend diet classes:: Yes Intervention/Plan: Instruct on ideal BMI & set weight loss goal w/patient, Assist pt to ID & incorporate diet changes for weight loss by S9, Refer to Struct[facility] Weight Loss program as appropriate and Encourage goal of using 250-300dcal per session for weight loss Plan Nutrition Plan: Yes: Review BMI or WC & identify target wt & strategies for wt control, Yes: Nutrition education class: and Yes: Weight control education class: Nutrition/Wt Mgmt - 30-Day Visit Session Number:: 0 (Pre-program evaluation) Weight Management Height: 5 ft 1 in Weight:: 224 lb BMI: 42.3 Nutrition/Wt Mgmt - 60-Day Visit Session Number:: 0 (Pre-program evaluation) Weight Management Height: 5 ft 1 in Weight:: 224 lb BMI: 42.3 Nutrition/Wt Mgmt - 90-Day Visit Session Number:: 0 (Pre-program evaluation) Weight Management Height: 5 ft 1 in Weight:: 224 lb BMI: 42.3 Nutrition/Wt Mgmt - Final Visit Session Number:: 0 (Pre-program evaluation) Weight Management Height: 5 ft 1 in Weight:: 224 lb BMI: 42.3 Psychosocial - Initial Assess Visit Date of Eval: 03/24/23 Session Number:: 0 (Pre-program evaluation) Psychosocial Test Tool Used:: Pulmonary QOL and PHQ-9 Questionnaire Referral to Behavioral Health PS - Interventions: Yes: Attend Stress Management Classes and No: Referral to Behavioral Health if PHQ-9 score >9: and No: Referral to [facility] Intervention/Plan: See List Interventions/Plan:: Assess stressors,coping strategies & signs of derpression on admission, Instruct/assist pt to develop coping & personal stress Mgt strategies, Instruct patient to recognize signs & symptoms of depression and Instruct patient to recog Psychosocial - 30-Day Visit Session Number:: 0 (Pre-program evaluation) Psychosocial Test Tool Used:: Pulmonary QOL and PHQ-9 Questionnaire Referral to Behavioral Health PS - Interventions: Yes: Attend Stress Management Classes and No: Referral to Behavioral Health if PHQ-9 score >9: and No: Referral to [facility] Plan Interventions/Plan:: Assess stressors,coping strategies & signs of derpression on admission, Instruct/assist pt to develop coping & personal stress Mgt strategies, Instruct patient to recognize signs & symptoms of depression and Instruct patient to recog Psychosocial - 60-Day Visit Session Number:: 0 (Pre-program evaluation) Psychosocial Test Tool Used:: Pulmonary QOL and PHQ-9 Questionnaire Referral to Behavioral Health PS - Interventions: Yes: Attend Stress Management Classes and No: Referral to Behavioral Health if PHQ-9 score >9: and No: Referral to [facility] Plan Interventions/Plan:: Assess stressors,coping strategies & signs of derpression on admission, Instruct/assist pt to develop coping & personal stress Mgt strategies, Instruct patient to recognize signs & symptoms of depression and Instruct patient to recog Psychosocial - 90-Day Visit Session Number:: 0 (Pre-program evaluation) Psychosocial Test Tool Used:: Pulmonary QOL and PHQ-9 Questionnaire Referral to Behavioral Health PS - Interventions: Yes: Attend Stress Management Classes and No: Referral to Behavioral Health if PHQ-9 score >9: and No: Referral to [facility] Plan Interventions/Plan:: Assess stressors,coping strategies & signs of derpression on admission, Instruct/assist pt to develop coping & personal stress Mgt strategies, Instruct patient to recognize signs & symptoms of depression and Instruct patient to recog Psychosocial - Final Assess Visit Session Number:: 0 (Pre-program evaluation) Psychosocial Test Tool Used:: Pulmonary QOL and PHQ-9 Questionnaire Referral to Behavioral Health PS - Interventions: Yes: Attend Stress Management Classes and No: Referral to Behavioral Health if PHQ-9 score >9: and No: Referral to [facility] Plan Interventions/Plan:: Assess stressors,coping strategies & signs of derpression on admission, Instruct/assist pt to develop coping & personal stress Mgt strategies, Instruct patient to recognize signs & symptoms of depression and Instruct patient to recog Oxygen & Oxygen Titration Init Visit Date of Eval: 03/24/23 Session Number:: 0 (Pre-program evaluation) Initial Assessment Oxygen on Admission: Continuous home use SpO2:: 93 Port O2:: 2 Patient Reports:: Prod cough daily <1 Tbsp Goal Oxygen & Oxygen Tritration Goals: Effective hypoxemia control and Uses O2 as Rx'd/safely Plans Plan: Monitor SpO2 rest & with exercise, Train appropriate O2 use at rest, Train appropriate O2 use with exercise and Train O2 safety & systems Reviewed prescribed medications:: Purpose, Schedule and Importance of compliance Instruct correct technique/timing & care:: MDI, DPI, Nebulizer and Return demo use of inhaler Bronchial Hygiene Plan: Controlled cough, Hydration, Hand hygiene and Signs/symptoms to report: Oxygen & Oxygen Titration 30D Visit Session Number:: 0 (Pre-program evaluation) Reassessment SpO2:: 93 Oxygen & Oxygen Titration 60D Visit Session Number:: 0 (Pre-program evaluation) Reassessment SpO2:: 93 Oxygen & Oxygen Titration 90D Visit Session Number:: 0 (Pre-program evaluation) Reassessment SpO2:: 93 Oxygen & Oxygen Titration MARGARET Visit Session Number:: 0 (Pre-program evaluation) Reassessment SpO2:: 93 Core Components - Initial Visit Date of Eval: 03/24/23 Session Number:: 0 (Pre-program evaluation) Hypertension Hypertension Diagnosis:: Hypertension ICD-10 I10 BP: 144/90 [place] [employer] Hypertension Guidelines Outcomes/Goals: Able to verbalize/achieve optimal blood pressure <130/80 Tobacco - Initial Assessment Tobacco Program Goals Stages of Change:: Action Do you use smokeless tobacco?: No Smoking Cessation Referral:: No Individual Education/Counseling:: No Education Schedule Given:: Yes Gave Education Materials For:: Pulmonary Disease, Risk Factors, Breathing Techniques, Medical Compliance, Pulmonary A&P, Exacerbation Signs & Symptoms and Stress & Relaxation Exacerbation Mgmt & Airway Clearance Problems:: Hypoxemia Hypoxemia Goals:: Hypoxemia managed, Port system and Using O2 as Rx's safely Bronchial Hygiene Problems:: Ineffective secretion clearance Goals: Pt demonstrates effective cough, effective secretion clearance. and Pt describes signs and symptoms of infection. Patient Reports:: Prod cough daily <1 Tbsp Plan: Monitor SpO2 rest & with exercise, Train appropriate O2 use at rest, Train appropriate O2 use with exercise and Train O2 safety & systems Instruct correct technique/timing & care:: MDI, DPI, Nebulizer and Return demo use of inhaler Bronchial Hygiene Plan: Controlled cough, Hydration, Hand hygiene and Signs/symptoms to report: Medication Medication Problems: Incorrect inahled Rx use, technique Interventions/plans: Review medication list w/patient every two weeks and Instruct importance of taking meds as ordered & assist problem solving Medication Goals: Correct technique/timing & care of MDI, DPI, nebulizer, and spacer. Medications: Yes: MDI, Yes: DPI and Yes: NEB and No: Spacer Reviewed prescribed medications:: Purpose, Schedule and Importance of compliance Diabetes Diabetes:: No Referral to dietitian:: Yes Referral to Diabetic Clinic:: No Will attend diet classes:: Yes Core Components - 30 DAYS Visit Session Number:: 0 (Pre-program evaluation) Hypertension Hypertension Diagnosis:: Hypertension ICD-10 I10 Resting Blood Pressure:: 144/90 [place] [employer] Hypertension Guidelines Outcomes/Goals: Able to verbalize/achieve optimal blood pressure <130/80 Tobacco - 30-Day Tobacco Program Goals Stages of Change:: Action Do you use smokeless tobacco?: No Smoking Cessation Referral:: No Education Schedule Given:: Yes Gave Education Materials For:: Pulmonary Disease, Risk Factors, Breathing Techniques, Medical Compliance, Pulmonary A&P, Exacerbation Signs & Symptoms and Stress & Relaxation Diabetes Diabetes:: No Core Components - 60 DAYS Visit Session Number:: 0 (Pre-program evaluation) Hypertension Hypertension Diagnosis:: Hypertension ICD-10 I10 Resting Blood Pressure:: 144/90 [place] [employer] Hypertension Guidelines Outcomes/Goals: Able to verbalize/achieve optimal blood pressure <130/80 Tobacco - 60-Day Tobacco Program Goals Stages of Change:: Action Do you use smokeless tobacco?: No Smoking Cessation Referral:: No Individual Education/Counseling:: No Education Schedule Given:: Yes Gave Education Materials For:: Pulmonary Disease, Risk Factors, Breathing Techniques, Medical Compliance, Pulmonary A&P, Exacerbation Signs & Symptoms and Stress & Relaxation Diabetes Diabetes:: No Core Components - 90 DAYS Visit Session Number:: 0 (Pre-program evaluation) Hypertension Hypertension Diagnosis:: Hypertension ICD-10 I10 Resting Blood Pressure:: 144/90 [place] [employer] Hypertension Guidelines Outcomes/Goals: Able to verbalize/achieve optimal blood pressure <130/80 Tobacco - 90-Day Tobacco Program Goals Stages of Change:: Action Do you use smokeless tobacco?: No Smoking Cessation Referral:: No Individual Education/Counseling:: No Education Schedule Given:: Yes Gave Education Materials For:: Pulmonary Disease, Risk Factors, Breathing Techniques, Medical Compliance, Pulmonary A&P, Exacerbation Signs & Symptoms and Stress & Relaxation Diabetes Diabetes:: No Core Components - Final Visit Session Number:: 0 (Pre-program evaluation) Hypertension Hypertension Diagnosis:: Hypertension ICD-10 I10 Resting Blood Pressure:: 144/90 [place] [employer] Hypertension Guidelines Outcomes/Goals: Able to verbalize/achieve optimal blood pressure <130/80 Tobacco - Final Tobacco Program Goals Stages of Change:: Action Do you use smokeless tobacco?: No Smoking Cessation Referral:: No Individual Education/Counseling:: No Education Schedule Given:: Yes Diabetes Diabetes:: No Patient Health Questionnaire PHQ-9 Screening Initial Assessment: 1. Little interest or pleasure in doing things: Not at all 2. Feeling down, depressed, or hopeless: Not at all 3. Trouble falling or staying asleep, or sleeping too much: Several days 4. Feeling tired or having little energy: Not at all 5. Poor appetite or overeating: Not at all 6. Feeling bad about yourself -- or that you are a failure or have let yourself or your family down: Not at all 7. Trouble concentrating on things, such as reading the newspaper or watching television: Not at all 8. Moving or speaking so slowly that other people could have noticed. Or the opposite - being so fidgety or restless that you have been moving around a lot more than usual: Not at all 9. Thoughts that you would be better off , or of hurting yourself in some way: Not at all How difficult have these problems made it for you to do your work, take care of things at home, or get along with other people?: Somewhat difficult Total Score: 1 Knowledge Questionaire (BCKQ) Information Information: [place] COPD Knowledge Questionnaire (BCKQ) This questionnaire is designed to find out what you know about your lung problem. It should be completed without help form anyone else. This usually takes between 10 and 20 minutes. Your answers will help us to find out what information you need to help you to understand and manage your lung condition. Octaviano the hughes which you think is the correct answer. Questions 1. In COPD: a. In COPD the word chronic means it is severe: False b. COPD can only be confirmed by breathing tests: False c. In COPD ther is usually gradual worsening over time: True d. In COPD oxygen levels in the blood are always low: False e. COPD is usually in people less than 40 years old: False 2. COPD: Jose Angel than 80% of COPD cases are caused by cigarette smoking: True b. COPD can be caused by occupational dust exposure: True c. Longstanding asthma can develop into COPD: True d. COPD is commonly an inherited disease: False e. Women are less vunerable to the effects of cigarette than men: False 3. The following symptoms are Common in COPD: a. Swelling of the ankles is common in COPD:: False b. Fatigue [tiredness] is common in COPD: True c. Wheezing is common in COPD: True d. Crushing chest pain is common in COPD: False e. Rapid weight loss is common in COPD: False 4. Breathlessness in COPD: a. Severe breathlessness prevents travel by air: False b. Breathlessness can be worsened by eating large meals: False c. Breathlessness means that your oxygen levels are low: True d. Breathlessness is a normal response to exercise: True e. Breathlessness is primarily caused by a narrowing of the bronchial tubes: True 5. Phlegm (sputum): a. Coughing phlegm is a common symptom in COPD: True b. Clearing phlegm is more difficult if you get dehydrated: True c. Bronchodilator inhalers can help clear phlegm: True d. Phlegm causes harm if swallowed: False e. Clearing phlegm can be assisted by breathing exercises: False 6. Chest infections / exacerbations: a. Chest infections often cause coughing of blood: False b. Chest infection phlegm usually becomes coloured (ylw/grn): True cExerbations (episodes of worsening) can occur in the absence of chest infection: True d. Chest infections are always accompanied by a high temperature: False e. Steroid tablets should be taken whenever there is an exacerbation: False 7. Excercise in COPD: aWalking excercises better than breathing to improve fitness: False b. Exercise should be avoided as it strains the lungs: False c. Exercise can help maintain your bone density: True d. Exercise helps relieve depression: True e. Exercise should be stopped if it makes you breathless: True 8. Smoking: a. Stopping smoking will reduce the risk of heart disease: True b. Stopping smoking will slow down further lung damage: True c. Stopping smoking is pointless as the damage is done: False d.Stopping smoking usually results in improved lung function: True eNicotine replacement therapy only available on prescription: False 9. Vaccination: a. A flu jab is recommended every year: True b. You can get flu from having a flu jab: False c. You can only have a flu jab if you are 65 or over: False d. A pneumonia jab protects against all forms of pneumonia: False e.You can have a pneumonia jab and a flu job on the same day: True 10. Inhaled bronchodilators: a. Bronchodilators act quickly (within 10 minutes): True b. Both short & long acting bronchodilators can be taken on the same day: True c. Spacers (volumatic,nebuhaler,serochamber)should be dried w/atowel after washing: False d. A spacer device increases the medication to the lungs: True e. Tremor may be a side effect of bronchodilators: True 11. Antibiotic treatment in COPD: a. To be effective, the course should last at least 10 days: False b. Excessive use of antibiotics can cause resistant bacteria (germs): True c. Antibiotics will clear all chest infections: False d. Antibiotic treatment is necessary for an exacerbation (worsening) however mild: False e. Seek advice if antibiotics cause severe diarrhoea: True 12. Steroid tablets given for COPD (eg Prednisolone): a. Steroid tablets help strengthen muscles: True b. Steroid tablets should be avoided if there is a chest infection: False c. The risk of long-term side effects due to steroids is less w/short courses then w/continous treatment: True dIndigestion is common side effect from using steroid tablet: False e. Steroid tablets can increase your appetite: True 13. Inhaled steroids (brown, red or orange): a. Inhaled steroids should be stopped if you are given steroid tablets: False bSteroid inhalers can be used for rapid relief breathlessnes: True c. Spacer devices reduce the risk of getting thrush in the mouth: False d.Steroid inhaler should be taken before your bronchodilator: False e. Inhaled steroids improve lung function in COPD: True COPD Knowledge Test Total Score:: 51 COPD Assessment Test [CAT] Questions Never cough = 0, Cough all the time = 5: 3 No phlegm = 0, Chest full of phlegm = 5: 3 No chest tightness = 0, Chest very tight = 5: 3 No breathless w/exertion = 0, Very breathless w/exertion = 5: 5 No limitations w/activity = 0, Very limited w/activity = 5: 3 Confident leaving home = 0, Not at all confident = 5: 3 Sleep soundly = 0, Don't sleep soundly = 5: 5 Lots of energy = 0, No energy at all = 5: 3 Total CAT score:: 28 Self-Efficacy 6-Item Scale Initial Assessment: We would like to know how confident you are in doing certain activities. Please select your confidence level for: Fatigue Select Number: 1 Physical Discomfort or Pain Select Number: 1 Emotional Distress Select Number: 5 Other Symptoms or Health Problems Select Number: 3 Different Tasks and Activities Select Number: 4 Medication Select Number: 10 Total Score:: 4 Nutrition Survey Nutrition Survey Instructions Scoring Instructions Nutrition Survey Initial: Have you lost >10 lbs over the past 2 months without trying?: No Are you following a special diet at home for diabetes, low fat, or low salt?: No Are you interested in meeting with a dietitian for help understanding your diet?: No Do you eat less than 3 meals a day?: No Do you eat fatty meats (morrell, sausage, ribs, etc), fried foods, desserts, large amounts of salad dressings, margarine, butter, or cheese most days?: Yes Do you have food allergies? [Enter types in comment field]: No Do you eat in restaurants more than 3 times a week?: No Do you season food with salt, seasoning salt, or garlic salt?: Yes Do you used canned, boxed, frozen meals, or soups, seasoning packets?: Yes Total Score:: 3
[2023-03-24 10:11] VITALS: BP 144/90; PULSE 120; RESP 18; TEMP 36.6; O2SAT 93; BMI 42.3
[2023-03-24 10:33] VITALS: BP 144/90; O2SAT 93; BMI 42.3
== END | disposition home or self-care (01) ==
LOC: PR 09:52
PROVIDERS: PCP Internal Medicine
DX: J44.9 Chronic obstructive pulmonary disease, unspecified (principal)

== ENCOUNTER 2023-03-28 11:28 | Outpatient (RCR) | payer MEDICARE, MEDICAID, SELFPAY ==
[2023-03-24 10:33] VITALS: BMI 42.3
== END 2023-03-28 23:59 ==
LOC: PR 11:28
PROVIDERS: PCP Internal Medicine
DX: J44.9 Chronic obstructive pulmonary disease, unspecified (principal)
CPT/HCPCS: 97150; 94626

== ENCOUNTER 2023-04-25 10:15 | Outpatient (RCR) | payer MEDICARE, MEDICAID, SELFPAY ==
[2023-03-24 10:33] VITALS: BMI 42.3
--- NOTE | 2023-04-18 07:24 | PCM.PR.TP ---
Exercise - Initial Assessment Visit Session Number:: 9 Physician Prescribed Exercise Current METSs:: 3.0 increase from 2.0 Target HR:: 113 (THRR 98-113) Current RPD:: 12-13 Maximum Exercise HR:: 116 Resting Blood Pressure: 144/86 (see [employer] [place] Monthly Report for KAYY trends) Minimum SpO2 with exercise: 92 (with 4 liters oxygen) EKG Type: NSR to sinus tach w/rare PAC. Nutrition/Wt Mgmt - Initial Visit Session Number:: 9 Weight Management Admit Height:: 5 ft 1 in Admit Weight:: 217 lb (Down from her previous starting weight of 224.) Admit BMI:: 41.0 Nutrition/Wt Mgmt - 30-Day Visit Date of Eval: 04/18/23 Session Number:: 9 Weight Management Height: 5 ft 1 in Weight:: 217 lb (Down from her previous starting weight of 224.) BMI: 41.0 Weight Goals Progress:: Progressing Nutrition/Wt Mgmt - 60-Day Visit Session Number:: 9 Weight Management Height: 5 ft 1 in Weight:: 217 lb (Down from her previous starting weight of 224.) BMI: 41.0 Nutrition/Wt Mgmt - 90-Day Visit Session Number:: 9 Weight Management Height: 5 ft 1 in Weight:: 217 lb (Down from her previous starting weight of 224.) BMI: 41.0 Nutrition/Wt Mgmt - Final Visit Session Number:: 9 Weight Management Height: 5 ft 1 in Weight:: 217 lb (Down from her previous starting weight of 224.) BMI: 41.0 Psychosocial - Initial Assess Visit Session Number:: 9 Problems/Goals History of Emotional Disorders: H/O Mental disease (History of PTSD) Psychosocial Goals: 1. Patient is free from overwhelming symtoms of depression (or anxiety, 2. Identifies personal stressors & states the strategies for managing, 3. Identifies activities to decrease isolation and/or symptoms of, 4. Improved psychosocial coping skills., 5. Verbalizes coping strategies. and 7. Improved Q.O.L. Psychosocial Test Tool Used:: PHQ-9 Questionnaire Referred to MD for counseling:: No Referral to Behavioral Health PS - Interventions: Yes: Attend Stress Management Classes and No: Referral to Behavioral Health if PHQ-9 score >9:, No: Referral to [facility] and No: Referral to Physician if PHQ-9 if score is 5-9: (Patient currently under treatment) Intervention/Plan: See List Interventions/Plan:: Assess stressors,coping strategies & signs of derpression on admission, Instruct/assist pt to develop coping & personal stress Mgt strategies, Instruct patient to recognize signs & symptoms of depression and Instruct patient to recog Comments:: Patient has had stress management and relaxation techniques education and is practicing relaxation-meditation at home. Psychosocial - 30-Day Visit Date of Eval: 04/18/23 Session Number:: 9 Problems/Goals History of Emotional Disorders: H/O Mental disease (History of PTSD) Psychosocial Goals: 1. Patient is free from overwhelming symtoms of depression (or anxiety, 2. Identifies personal stressors & states the strategies for managing, 3. Identifies activities to decrease isolation and/or symptoms of, 4. Improved psychosocial coping skills., 5. Verbalizes coping strategies. and 7. Improved Q.O.L. Psychosocial Test Tool Used:: PHQ-9 Questionnaire Referred to MD for counseling:: No Referral to Behavioral Health PS - Interventions: Yes: Attend Stress Management Classes and No: Referral to Behavioral Health if PHQ-9 score >9:, No: Referral to [facility] and No: Referral to Physician if PHQ-9 if score is 5-9: (Patient currently under treatment) Plan Interventions/Plan:: Assess stressors,coping strategies & signs of derpression on admission, Instruct/assist pt to develop coping & personal stress Mgt strategies, Instruct patient to recognize signs & symptoms of depression and Instruct patient to recog Comments:: Patient has had stress management and relaxation techniques education and is practicing relaxation-meditation at home. Psychosocial - 60-Day Visit Session Number:: 9 Problems/Goals History of Emotional Disorders: H/O Mental disease (History of PTSD) Psychosocial Goals: 1. Patient is free from overwhelming symtoms of depression (or anxiety, 2. Identifies personal stressors & states the strategies for managing, 3. Identifies activities to decrease isolation and/or symptoms of, 4. Improved psychosocial coping skills., 5. Verbalizes coping strategies. and 7. Improved Q.O.L. Psychosocial Test Tool Used:: PHQ-9 Questionnaire Referred to MD for counseling:: No Referral to Behavioral Health PS - Interventions: Yes: Attend Stress Management Classes and No: Referral to Behavioral Health if PHQ-9 score >9:, No: Referral to [facility] and No: Referral to Physician if PHQ-9 if score is 5-9: (Patient currently under treatment) Plan Interventions/Plan:: Assess stressors,coping strategies & signs of derpression on admission, Instruct/assist pt to develop coping & personal stress Mgt strategies, Instruct patient to recognize signs & symptoms of depression and Instruct patient to recog Comments:: Patient has had stress management and relaxation techniques education and is practicing relaxation-meditation at home. Psychosocial - 90-Day Visit Session Number:: 9 Problems/Goals History of Emotional Disorders: H/O Mental disease (History of PTSD) Psychosocial Goals: 1. Patient is free from overwhelming symtoms of depression (or anxiety, 2. Identifies personal stressors & states the strategies for managing, 3. Identifies activities to decrease isolation and/or symptoms of, 4. Improved psychosocial coping skills., 5. Verbalizes coping strategies. and 7. Improved Q.O.L. Psychosocial Test Tool Used:: PHQ-9 Questionnaire Referred to MD for counseling:: No Referral to Behavioral Health PS - Interventions: Yes: Attend Stress Management Classes and No: Referral to Behavioral Health if PHQ-9 score >9:, No: Referral to [facility] and No: Referral to Physician if PHQ-9 if score is 5-9: (Patient currently under treatment) Plan Interventions/Plan:: Assess stressors,coping strategies & signs of derpression on admission, Instruct/assist pt to develop coping & personal stress Mgt strategies, Instruct patient to recognize signs & symptoms of depression and Instruct patient to recog Comments:: Patient has had stress management and relaxation techniques education and is practicing relaxation-meditation at home. Psychosocial - Final Assess Visit Session Number:: 9 Problems/Goals History of Emotional Disorders: H/O Mental disease (History of PTSD) Psychosocial Goals: 1. Patient is free from overwhelming symtoms of depression (or anxiety, 2. Identifies personal stressors & states the strategies for managing, 3. Identifies activities to decrease isolation and/or symptoms of, 4. Improved psychosocial coping skills., 5. Verbalizes coping strategies. and 7. Improved Q.O.L. Psychosocial Test Tool Used:: PHQ-9 Questionnaire Referred to MD for counseling:: No Referral to Behavioral Health PS - Interventions: Yes: Attend Stress Management Classes and No: Referral to Behavioral Health if PHQ-9 score >9:, No: Referral to [facility] and No: Referral to Physician if PHQ-9 if score is 5-9: (Patient currently under treatment) Plan Interventions/Plan:: Assess stressors,coping strategies & signs of derpression on admission, Instruct/assist pt to develop coping & personal stress Mgt strategies, Instruct patient to recognize signs & symptoms of depression and Instruct patient to recog Comments:: Patient has had stress management and relaxation techniques education and is practicing relaxation-meditation at home. Oxygen & Oxygen Titration Init Visit Session Number:: 9 Initial Assessment SpO2:: 92 (with 4 liters oxygen) Oxygen & Oxygen Titration 30D Visit Date of Eval: 04/18/23 Session Number:: 9 Reassessment Reassessment- 30 Days: Demonstrate knowledge of O2 Rx at rest & w/exercise, Using O2 as Rx'd, Has home O2 as Rx'd and Uses port O2 as Rx'd Breath Sounds:: Diminished and Insp. & Exp. Wheezing SpO2:: 92 (with 4 liters oxygen) Oxygen & Oxygen Titration 60D Visit Date of Eval: 04/18/23 Session Number:: 9 Reassessment Breath Sounds:: Diminished and Insp. & Exp. Wheezing SpO2:: 92 (with 4 liters oxygen) Oxygen & Oxygen Titration 90D Visit Date of Eval: 04/18/23 Session Number:: 9 Reassessment Breath Sounds:: Diminished and Insp. & Exp. Wheezing SpO2:: 92 (with 4 liters oxygen) Oxygen & Oxygen Titration MARGARET Visit Date of Eval: 04/18/23 Session Number:: 9 Reassessment Breath Sounds:: Diminished and Insp. & Exp. Wheezing SpO2:: 92 (with 4 liters oxygen) Core Components - Initial Visit Session Number:: 9 Hypertension BP: 144/86 [place] Hypertension Guidelines Outcomes/Goals: Able to verbalize/achieve optimal blood pressure <130/80 Diabetes Diabetes:: No Heart Failure Documenting weight daily for CHF: No Core Components - 30 DAYS Visit Date of Eval: 04/18/23 Session Number:: 9 Hypertension Resting Blood Pressure:: 144/86 [place] [employer] Hypertension Guidelines Change in medication: No Outcomes/Goals: Able to verbalize/achieve optimal blood pressure <130/80 Interventions/plan: Instruct on optimal blood pressure, hypertension & medications and Instruct on effects of sodium, alcohol, stress, exercise &hypertension 30 day Reassessments:: Progressing Exacerbation Mgmt & Airway Clearance Reassessment: Demonstrates knowledge of O2 Rx at rest, Demonstrates knowledge of O2 Rx with exercise, Using O2 as prescribed, Has home O2 as prescribed and Uses port O2 as prescribed Bronchial Hygiene Plan: Yes: Pt demo correct for device (Patient instructed on SMI and PEP therapy devices), Yes: Pt demo correct for improved hydration and Yes: Pt demo correct for hand hygiene Medication Medication list reviewed:: Yes Taking medications 100% of the time:: Met Medication reassessment: No: Pt demonstrates correct technique timing for MDI, No: Pt demonstrates correct technique timing for DPI, No: Pt demonstrates correct technique timing for NEB and No: Pt demonstrates correct technique timing for spacer (Patient instructed & given a spacer device) Diabetes Diabetes:: No Heart Failure Documenting weight sonal: No Core Components - 60 DAYS Visit Session Number:: 9 Hypertension Resting Blood Pressure:: 144/86 [place] [employer] Hypertension Guidelines Change in medication: No Outcomes/Goals: Able to verbalize/achieve optimal blood pressure <130/80 Interventions/plan: Instruct on optimal blood pressure, hypertension & medications and Instruct on effects of sodium, alcohol, stress, exercise &hypertension 60 day Reassessments:: Progressing Exacerbation Mgmt & Airway Clearance Reassessment: Demonstrates knowledge of O2 Rx at rest, Demonstrates knowledge of O2 Rx with exercise, Using O2 as prescribed, Has home O2 as prescribed and Uses port O2 as prescribed Bronchial Hygiene Plan: Yes: Pt demo correct for device (Patient instructed on SMI and PEP therapy devices), Yes: Pt demo correct for improved hydration and Yes: Pt demo correct for hand hygiene Medication Taking medications 100% of the time:: Met Medication reassessment: No: Pt demonstrates correct technique timing for MDI, No: Pt demonstrates correct technique timing for DPI, No: Pt demonstrates correct technique timing for NEB and No: Pt demonstrates correct technique timing for spacer (Patient instructed & given a spacer device) Diabetes Diabetes:: No Heart Failure Documenting weight sonal: No Core Components - 90 DAYS Visit Session Number:: 9 Hypertension Resting Blood Pressure:: 144/86 [place] Hypertension Guidelines Outcomes/Goals: Able to verbalize/achieve optimal blood pressure <130/80 Interventions/plan: Instruct on optimal blood pressure, hypertension & medications and Instruct on effects of sodium, alcohol, stress, exercise &hypertension 90 day Reassessments:: Progressing Exacerbation Mgmt & Airway Clearance Bronchial Hygiene Plan: Yes: Pt demo correct for device (Patient instructed on SMI and PEP therapy devices), Yes: Pt demo correct for improved hydration and Yes: Pt demo correct for hand hygiene Medication Medication reassessment: No: Pt demonstrates correct technique timing for MDI, No: Pt demonstrates correct technique timing for DPI, No: Pt demonstrates correct technique timing for NEB and No: Pt demonstrates correct technique timing for spacer (Patient instructed & given a spacer device) Diabetes Diabetes:: No Core Components - Final Visit Session Number:: 9 Hypertension Resting Blood Pressure:: 144/86 [place] [employer] Hypertension Guidelines Outcomes/Goals: Able to verbalize/achieve optimal blood pressure <130/80 Exacerbation Mgmt & Airway Clearance Bronchial Hygiene Plan: Yes: Pt demo correct for device (Patient instructed on SMI and PEP therapy devices), Yes: Pt demo correct for improved hydration and Yes: Pt demo correct for hand hygiene Medication Medication reassessment: No: Pt demonstrates correct technique timing for MDI, No: Pt demonstrates correct technique timing for DPI, No: Pt demonstrates correct technique timing for NEB and No: Pt demonstrates correct technique timing for spacer (Patient instructed & given a spacer device) Diabetes Diabetes:: No Patient Health Questionnaire PHQ-9 Screening 30-Day Re-eval Assessment: 1. Little interest or pleasure in doing things: Not at all 2. Feeling down, depressed, or hopeless: Not at all 3. Trouble falling or staying asleep, or sleeping too much: Several days 4. Feeling tired or having little energy: Not at all 5. Poor appetite or overeating: Not at all 6. Feeling bad about yourself -- or that you are a failure or have let yourself or your family down: Not at all 7. Trouble concentrating on things, such as reading the newspaper or watching television: Not at all 8. Moving or speaking so slowly that other people could have noticed. Or the opposite - being so fidgety or restless that you have been moving around a lot more than usual: Not at all 9. Thoughts that you would be better off , or of hurting yourself in some way: Not at all How difficult have these problems made it for you to do your work, take care of things at home, or get along with other people?: Somewhat difficult Total Score: 1 Knowledge Questionaire (BCKQ) Information Information: [place] COPD Knowledge Questionnaire (BCKQ) This questionnaire is designed to find out what you know about your lung problem. It should be completed without help form anyone else. This usually takes between 10 and 20 minutes. Your answers will help us to find out what information you need to help you to understand and manage your lung condition. [place] [employer] [place] which you think is the correct answer. COPD Assessment Test [CAT] Questions Never cough = 0, Cough all the time = 5: 2 No phlegm = 0, Chest full of phlegm = 5: 2 No chest tightness = 0, Chest very tight = 5: 2 No limitations w/activity = 0, Very limited w/activity = 5: 3 Confident leaving home = 0, Not at all confident = 5: 3 Sleep soundly = 0, Don't sleep soundly = 5: 4 Lots of energy = 0, No energy at all = 5: 2 Self-Efficacy 6-Item Scale 30-Day Re-eval Assessment: We would like to know how confident you are in doing certain activities. Please select your confidence level for: Fatigue Select Number: 4 Physical Discomfort or Pain Select Number: 4 Emotional Distress Select Number: 7 Other Symptoms or Health Problems Select Number: 4 Different Tasks and Activities Select Number: 6 Medication Select Number: 10 Total Score:: 5 Nutrition Survey Nutrition Survey Instructions Scoring Instructions
[2023-04-18 07:37] VITALS: BP 144/86; O2SAT 92; BMI 41.0
== END 2023-04-28 23:59 ==
LOC: PR 10:15
PROVIDERS: PCP Internal Medicine
DX: J44.9 Chronic obstructive pulmonary disease, unspecified (principal)
CPT/HCPCS: 97150; 94626

== ENCOUNTER 2023-04-29 07:22 | Outpatient (RCR) | payer MEDICARE, MEDICAID, SELFPAY ==
[2023-04-18 07:37] VITALS: BMI 41.0
[2023-04-29 00:39] VITALS: BP 144/86; BMI 41.0
== END 2023-05-28 23:59 ==
LOC: PR 07:22
PROVIDERS: PCP Internal Medicine
DX: J44.9 Chronic obstructive pulmonary disease, unspecified (principal)
CPT/HCPCS: 97150; 94626

== ENCOUNTER → 2023-05-17 | Outpatient (CLI) | payer MEDICARE, MEDICAID, SELFPAY ==
[2023-04-18 07:37] VITALS: BMI 41.0
== END | disposition home or self-care (01) ==
LOC: LABSPEC 10:55
PROVIDERS: PCP Internal Medicine; Referring Provider Nurse Practitioner Family; Visit Provider Nurse Practitioner Family
DX: R53.83 Other fatigue (principal)
CPT/HCPCS: 84443

== ENCOUNTER → 2023-05-19 | Outpatient (CLI) | payer MEDICARE, MEDICAID, SELFPAY ==
[2023-04-18 07:37] VITALS: BMI 41.0
[2023-05-19 13:18] LABS: Absolute Lymphocyte Count 1.27 X10^3/uL (0.83-4.51); Absolute Neutrophil Count 8.3 X10^3/uL (2.0-7.7); Basophil# 0.06 X10^3/uL; Basophil% 0.6 % (0-1); Eosinophil# 0.33 X10^3/uL; Eosinophils% 3.1 % (0-5); Hematocrit 43.8 % (37-47); Hemoglobin 13.9 g/dL (12.0-15.0); Lymphocyte # 1.27 X10^3/ul (0.83-4.51); Mean Corp Hgb Conc 31.7 g/dL (32-36); Mean Corpuscular Hgb 25.9 pg (27.0-32.0); Mean Corpuscular Volume 81.7 fL (81-99); Mean Platelet Vol. 8.3 fl (6.2-12.0); Monocyte# 0.61 X10^3/uL; Monocyte% 5.7 % (0-10); NRBC Flagged by Analyzer 0 % (0-5); Neutrophil # 8.28 X10^3/uL (2.7-7.7); Neutrophil % 77.9 % (47-70); Platelet Count 303 K/mm3 (150-450); RBC Distribution Width SD 47.8 fl (35.1-43.9); Red Blood Count 5.36 M/mm3 (4.2-5.4); White Blood Count 10.6 K/mm3 (4.4-11.0)
[2023-05-19 13:19] LABS: Erythrocyte Sedimentation Rate 35 mm/hr (0-30)
[2023-05-19 13:43] LABS: Vitamin B12 381 pg/mL (211-911)
[2023-05-19 13:49] LABS: ALB/GLOB Ratio 0.9 RATIO (0.9-2.4); AST(SGOT) 21 U/L (15-37); Alanine Aminotransfer ALT/SGPT 34 U/L (13-56); Albumin, Serum 3.5 g/dL (3.2-5.0); Alkaline Phosphatase 138 U/L (45-117); Anion Gap 3 (5-15); BUN 23 mg/dL (7-18); BUN/Creat Ratio 22.3 RATIO (10-20); Calcium,Total 9.5 mg/dL (8.5-10.1); Chloride 98 mmol/L (98-107); Creatinine, Serum 1.03 mg/dL (0.55-1.02); EST Glomerular Filtration Rate 56 mL/min (>60); Est Glom Filt Rate - Afr Amer 68 mL/min (>60); Free T3 1.9 pg/mL (2.18-3.98); Globulin 3.7 g/dL (2.2-4.2); Glucose 111 mg/dL (74-106); Potassium 4.4 mmol/L (3.5-5.1); Protein, Total 7.2 g/dL (6.4-8.2); Sodium Level 132 mmol/L (136-145); T4 Free Direct 0.89 ng/dL (0.76-1.46); Thyroid Stim Hormone (TSH) 6.18 uIU/mL (0.358-3.74)
== END | disposition home or self-care (01) ==
LOC: LAB 12:33
PROVIDERS: PCP Internal Medicine; Referring Provider Internal Medicine; Visit Provider Internal Medicine
DX: R79.89 Other specified abnormal findings of blood chemistry (principal); R53.83 Other fatigue; I10 Essential (primary) hypertension; E55.9 Vitamin D deficiency, unspecified
CPT/HCPCS: 36415; 80053; 82306; 82607; 84439; 84443; 84481; 85025; 85652; 86140

== ENCOUNTER → 2023-05-20 | Outpatient (CLI) | payer MEDICARE, MEDICAID, SELFPAY ==
[2023-04-18 07:37] VITALS: BMI 41.0
--- NOTE | 2023-05-20 10:09 | US_ITS ---
INDICATION: Elevated alkaline phosphatase EXAMINATION: Ultrasound US Abdomen Limited (quadrant) TECHNIQUE: Rodriguez scale and color doppler imaging was performed of the right upper quadrant. COMPARISON: Hours CT abdomen and pelvis of 10/02/2020. FINDINGS: LIVER: There is marked increased echogenicity. The liver measures about 17.8 cm in length. The portal vein is patent with normal hepatopedal flow. No focal hepatic lesion. There is no free fluid. GALLBLADDER AND BILIARY TREE: Multiple gallstones are seen within the gallbladder. The gallbladder wall is not thickened. The proximal common bile duct measures 4, which is within normal limits for the patient''s age. Sonographic Arango''s sign: Negative. PANCREAS: No focal abnormality is demonstrated in the visualized portions of the pancreas. No pancreatic ductal dilatation. RIGHT KIDNEY: The right kidney measures 11.5 cm in length. The renal cortex measures 1.6 cm. No evidence of hydronephrosis. US/Gallbladder IMPRESSION: 1. Cholelithiasis. 2. Echogenic liver which may reflect fatty infiltration or hepatocellular disease. Electronically Signed: Luciano Corral MD at 11:53 EDT ,
== END | disposition home or self-care (01) ==
LOC: US 10:06
PROVIDERS: PCP Internal Medicine; Referring Provider Internal Medicine; Visit Provider Internal Medicine
DX: R74.8 Abnormal levels of other serum enzymes (principal)
CPT/HCPCS: 76705

== ENCOUNTER → 2023-05-30 | Outpatient (CLI) | payer MEDICARE, MEDICAID, SELFPAY ==
[2023-04-18 07:37] VITALS: BMI 41.0
--- NOTE | 2023-05-30 09:35 | NM_ITS ---
INDICATION: nausea, fatigue, cholelithiasis EXAMINATION: NUCLEAR MEDICINE HEPATOBILIARY SCAN - NM Hepatobiliary Imaging Quantitive TECHNIQUE: 5.4 mCi technetium 99m choletec was intravenously administered and static images were obtained. COMPARISON: Ultrasound 05/20/2023 FINDINGS: There is homogeneous uptake and excretion of the radiopharmaceutical by the liver. There is no abnormal hyperemia along the gallbladder fossa. Biliary activity is noted at 15 minutes. Bowel activity is noted at 30 minutes. Gallbladder activity is NOT seen at 2 hours. NM/Hepatobilliary Img w/Pharm Int IMPRESSION: Nonvisualization of the gallbladder at 2 hours suggesting acute cholecystitis/cystic duct obstruction. Electronically Signed: Rocky Medrano MD ([place]) at 13:08 EDT ,
== END | disposition home or self-care (01) ==
LOC: NM 09:35
PROVIDERS: PCP Internal Medicine; Referring Provider Internal Medicine; Visit Provider Internal Medicine
DX: R11.2 Nausea with vomiting, unspecified (principal)
CPT/HCPCS: 78227; A9537

== ENCOUNTER 2023-06-01 09:32 | Emergency (ER) | payer MEDICARE, MEDICAID, SELFPAY ==
[2023-04-18 07:37] VITALS: BMI 41.0
[2023-06-01 09:33] VITALS: BP 123/87; PULSE 118; RESP 16; TEMP 36.3; O2SAT 94; BMI 37.5
--- NOTE | 2023-06-01 09:47 | EKG12_ITS ---
Test Reason : Blood Pressure : / mmHG Vent. Rate : 088 BPM Atrial Rate : 088 BPM P-R Int : 144 ms QRS Dur : 076 ms QT Int : 358 ms P-R-T Axes : 040 015 049 degrees QTc Int : 433 ms Normal sinus rhythm Normal ECG Confirmed by DUKE POWERS, ROBE ([id number]), publishing editor NOAH CHAPA ([id number]) on 06/07/2023 7:02:39 AM Referred By: Confirmed By:ROBE WALL MD
--- NOTE | 2023-06-01 09:48 | EX.ED.DYSGE1 ---
HPI History of Present Illness Chief Complaint: Abd Pain Informant: patient Onset/Context/Timing Onset: Weeks Context: Gradual Onset Timing: Waxes and wanes Narrative Narrative: Patient presents secondary to blocked bile duct. Patient states she developed right-sided pain about a month ago and states a lot of her pain was actually in her right upper arm. She had some nausea. She had blood work done as well as a HIDA scan and right upper quadrant ultrasound. Right upper quadrant ultrasound was performed on 05/20/2023 and revealed cholelithiasis with no gallbladder wall thickening. HIDA scan was performed on 05/30/2023 and revealed nonvisualization of the gallbladder at 2 hours suggesting acute cholecystitis/cystic duct obstruction. Patient was to have an MRCP last night, however she has a bladder stimulator and this could not be performed. Patient reportedly called her PCP this morning and was advised to come to the emergency room. Patient has reportedly been referred to Dr. De Souza but has not yet seen him. [facility] Medical History Anxiety and depression Arthritis BMI 40.0-44.9, adult COPD (chronic obstructive pulmonary disease) Cough due to bronchospasm Degenerative lumbar spinal stenosis Dyspnea on exertion Encounter for screening for malignant neoplasm of lung in current smoker with 30 pack year history or greater GERD (gastroesophageal reflux disease) Hypertension Kidney stones Oral thrush PTSD (post-traumatic stress disorder) Spinal stenosis Tobacco use disorder, continuous Home Medications prazosin 1 mg capsule 1 mg PO DAILY blood pressure 09/29/17 [History Last Taken 01/08/21] sertraline 100 mg tablet 200 mg PO DAILY depression 10/23/20 [History Last Taken 01/08/21] aripiprazole 20 mg tablet 20 mg PO DAILY mood 01/06/21 [History Last Taken 01/08/21] prazosin 2 mg capsule 2 mg PO QHS blood pressure 01/06/21 [History Last Taken 01/08/21] Pulse oximeter #1 ea 02/05/21 [Rx Last Taken Unknown] blood pressure monitor (Blood Pressure Kit) #1 ea 02/05/21 [Rx Last Taken Unknown] walker (Ultra-Light Rollator misc) #1 ea 03/24/21 [Rx Last Taken Unknown] bupropion HCl 150 mg 24 hr tablet, extended release 300 mg PO DAILY mood 05/05/21 [History Last Taken Unknown] budesonide 160 mcg-glycopyr 9 mcg-formot 4.8 mcg/actuation HFA inhaler (Breztri Aerosphere) 2 inh inhalation BID 12/07/21 [History Last Taken Unknown] amlodipine 5 mg tablet 5 mg PO DAILY blood pressure #90 tabs 01/14/22 [Rx Last Taken Unknown] azelastine-fluticasone 137 mcg-50 mcg/spray nasal spray 1 spray intranasal BID #23 grams 01/26/22 [Rx Last Taken Unknown] underpads (Bed Underpads) #40 ea 02/16/22 [Rx Last Taken Unknown] celecoxib 200 mg capsule 200 mg PO DAILY #60 caps 06/28/22 [Rx Last Taken Unknown] vibegron 75 mg tablet (Gemtesa) 75 mg PO DAILY 07/14/22 [History Last Taken Unknown] esomeprazole magnesium 20 mg capsule,delayed release 20 mg PO DAILY gerd #90 caps 08/12/22 [Rx Last Taken Unknown] lisinopril 20 mg-hydrochlorothiazide 25 mg tablet 1 tab PO DAILY blood pressure #90 tabs 08/12/22 [Rx Last Taken Unknown] nebulizer inhalation 3XD 12/08/22 [History Last Taken Unknown] lidocaine 5 % patch and menthol 6 % gel topical kit See Rx Instructions topical .COMPLEX #1 ea 02/11/23 [Rx Last Taken Unknown] budesonide 160 mcg-glycopyr 9 mcg-formot 4.8 mcg/actuation HFA inhaler (Breztri Aerosphere) 2 inh inhalation BID 03/24/23 [History Last Taken Unknown] prednisone 10 mg tablet 10 mg PO DAILY 03/24/23 [History Last Taken Unknown] buprenorphine 5 mcg/hour weekly transdermal patch 1 patch transdermal QWEEK 05/19/23 [History Last Taken Unknown] cholecalciferol (vitamin D3) 1,250 mcg (50,000 unit) capsule 1,250 mcg PO QWEEK #12 caps 05/19/23 [Rx Last Taken Unknown] levothyroxine 50 mcg tablet 50 mcg PO DAILY #30 tabs 05/19/23 [Rx Last Taken Unknown] ondansetron 4 mg disintegrating tablet 4 mg PO Q8H PRN PRN Nausea #10 tabs 06/01/23 [Rx Last Taken Unknown] Allergy/AdvReac Type Severity Reaction Status Date / Time prednisone AdvReac Other Verified 06/01/23 09:34 Sulfa (Sulfonamide AdvReac Nausea Verified 06/01/23 09:34 Antibiotics) Family History Mother Diabetes Hypertension Breast cancer Father Heart disease Hypertension Myocardial infarction, Onset Age: 46 Surgical History History of History of D&C History of hand surgery History of hysterectomy Social History Smoking Status: Former smoker quit date: 01/03/21 Tobacco: How many years used: 36 alcohol intake: never substance use type: does not use what type of physical activity do you participate in: none ROS ROS ED Constitutional Constitutional ED: Denies chills or fever(s) Eyes Eyes: Denies change in vision ENT ENT ED: Denies rhinorrhea or sore throat Cardiovascular Cardiovascular: Denies chest pain or palpitations Respiratory/Chest Respiratory/Chest: Denies cough or dyspnea Gastrointestinal Gastrointestinal: Reports abdominal pain and nausea; Denies diarrhea or vomiting Genitourinary Genitourinary ED: Denies dysuria Musculoskeletal Musculoskeletal: Reports extremity pain; Denies back pain Integumentary Denies Abrasions or rash Neurologic Neurologic: Denies headache(s) or weakness Psychiatric Psychiatric: Denies anxiety or depression Allergic/Immunologic Allergic/Immunologic ED: Denies lip swelling or urticaria EXAM Physical Exam Const Vital Signs: 06/01/23 09:33 06/01/23 13:25 Temperature 97.4 F L Temperature Source Temporal Pulse Rate 118 H 80 Respiratory Rate 16 Blood Pressure 123/87 H 148/78 H Blood Pressure Mean 99 101 Pulse Ox 94 Oxygen Delivery Method Nasal Cannula Oxygen Flow Rate (L/min) 3 Positive well nourished and well developed General Appearance ED: well developed HEENT Reports normocephalic and head/scalp atraumatic Eyes PERRL and EOMs intact bilaterally Neck supple Chest Wall inspection of chest normal and palpation of chest normal Resp normal respiratory effort and clear to auscultation bilaterally Cardio regular rate and regular rhythm GI GI Narrative: Soft with mild right-sided tenderness. No guarding or rebound. Hypoactive bowel sounds. Palpation: soft Extremity normal to inspection Neuro oriented x3 and no sensory deficits noted Sensorium / Orientation: alert Motor Exam: strength 5/5 throughout Psych mental status grossly normal Skin no rashes or lesions noted MDM MDM MDM Narrative Medical decision making narrative: Patient had lab work last on May 19. Labwork will be repeated today to evaluate for leukocytosis, electrolyte derangement. Lab Data Attestation: I reviewed the patient's lab results. Labs: Laboratory Results - last 24 hr 06/01/23 10:04 WBC 9.2 RBC 5.18 Hgb 13.4 Hct 42.8 MCV 82.6 MCH 25.9 L MCHC 31.3 L RDW Std Deviation 48.1 H RDW Coeff of Ronny 15.9 H Plt Count 245 MPV 8.5 Immature Gran % (Auto) 0.800 Neut % (Auto) 82.4 H Lymph % (Auto) 8.6 L Taylor % (Auto) 5.0 Eos % (Auto) 2.8 Baso % (Auto) 0.4 Absolute Neuts (auto) 7.6 Absolute Lymphs (auto) 0.79 L Nucleated RBC % 0 Sodium 133 L Potassium 3.8 Chloride 102 Carbon Dioxide 26.0 Anion Gap 5 BUN 13 Creatinine 1.13 H Estim Creat Clear Calc 37.16 Est GFR (MDRD) Af Amer 61 Est GFR (MDRD) Non-Af 51 L BUN/Creatinine Ratio 11.5 Glucose 117 H Calcium 9.0 Total Bilirubin 0.30 Direct Bilirubin 0.12 AST 28 ALT 36 Alkaline Phosphatase 128 H Total Protein 7.1 Albumin 3.3 Globulin 3.8 Lipase 35 Radiography Diagnostic Testing: Clinical Impression(s) from Imaging Studies Abdomen/Pelvis CT 06/01/23 10:47 IMPRESSION: Moderate-sized umbilical hernia containing a portion of the transverse colon. Diffuse fatty infiltration of the liver. Electronically Signed: Wilfred De La Cruz MD at 11:30 EDT , Treatment and Re-Evaluation :: CBC was normal white count normal hemoglobin at 13.4. 82% neutrophils are noted. Chemistry studies significantly for a creatinine 1.13. Glucose is 117. LFTs reveal slightly elevated alk phos at 128, otherwise values normal. Lipase is normal at 35. Patient has had recent upper quadrant ultrasound as well as HIDA scan. I spoke with Dr. Ghosh, on-call for GI. He requested a CT scan with IV contrast. The scan reveals a periumbilical hernia, but normal-appearing gallbladder and ducts. This was reviewed with Dr. Ghosh. I will check and examine the patient. She has no tenderness over the umbilical hernia or in the right upper quadrant at this time. I spoke Dr. Hardwick, on-call for surgery. At this time it does not appear the patient needs to be taken urgently for a cholecystectomy as she is not having any pain. She will call the office for follow-up with either Dr. Hardwick or Dr. De Souza. I will send a prescription for Zofran to the pharmacy to help with her nausea. Return instructions are given. Discharge Plan Triage Chief Complaint: Abd Pain ED Provider: Sahara Montoya Dx/Rx/DC Orders Clinical Impression: Nausea Instructions: ED Vomiting (Adult) Prescriptions: New ondansetron 4 mg tablet,disintegrating 4 mg PO Q8H PRN PRN (Reason: Nausea) Qty: 10 0RF No Action azelastine-fluticasone 137-50 mcg/spray spray,non-aerosol 1 spray intranasal BID Qty: 23 6RF Rx Instructions: administer into each nostril Breztri Aerosphere 160-9-4.8 mcg/actuation HFA aerosol inhaler 2 inh inhalation BID nebulizer inhalation 3XD Gemtesa 75 mg tablet 75 mg PO DAILY buprenorphine 5 mcg/hour patch weekly 1 patch transdermal QWEEK cholecalciferol (vitamin D3) 1,250 mcg (50,000 unit) capsule 1,250 mcg PO QWEEK Qty: 12 3RF prazosin 1 MG capsule 1 mg PO DAILY sertraline 100 mg tablet 200 mg PO DAILY prazosin 2 mg capsule 2 mg PO QHS aripiprazole 20 mg tablet 20 mg PO DAILY bupropion HCl 150 mg tablet extended release 24 hr 300 mg PO DAILY prednisone 10 mg tablet 10 mg PO DAILY Breztri Aerosphere 160-9-4.8 mcg/actuation HFA aerosol inhaler 2 inh inhalation BID lidocaine-menthol 5-6 % kit See Rx Instructions .ROUTE .COMPLEX Qty: 1 0RF Rx Instructions: apply LIDIOCAINE PATCH once a day/may leave on for up to 12 hrs; apply MENTHOL GEL 1 - 4 times/day as needed for pain. (DME) blood pressure monitor [Blood Pressure Kit] Kit See Rx Instructions .ROUTE .MEDSUPPLY Qty: 1 0RF Rx Instructions: Check daily and as needed (DME) Pulse oximeter See Rx Instructions .Route .MEDSUPPLY Qty: 1 0RF Rx Instructions: Monitor daily or as needed (DME) Ultra-Light Rollator Misc See Rx Instructions .ROUTE .MEDSUPPLY Qty: 1 0RF Rx Instructions: As directed amlodipine 5 mg tablet 5 mg PO DAILY Qty: 90 3RF (DME) underpads [Bed Underpads] Pad See Rx Instructions .Route Qty: 40 6RF Rx Instructions: R32. celecoxib 200 mg capsule 200 mg PO DAILY Qty: 60 0RF esomeprazole magnesium 20 mg capsule,delayed release(DR/EC) 20 mg PO DAILY Qty: 90 3RF lisinopril-hydrochlorothiazide 20-25 mg tablet 1 tab PO DAILY Qty: 90 3RF levothyroxine 50 mcg tablet 50 mcg PO DAILY Qty: 30 2RF Primary Care Provider: Rosa Bragg Referrals: Jose De Souza MD [Med Staff - Active Staff] - As soon as possible Rosa Bragg MD [Primary Care Provider] - Disposition Disposition: Home, Self Care Discharge Date/Time: 06/01/23 13:26
[2023-06-01 10:15] LABS: Absolute Lymphocyte Count 0.79 X10^3/uL (0.83-4.51); Absolute Neutrophil Count 7.6 X10^3/uL (2.0-7.7); Basophil# 0.04 X10^3/uL; Basophil% 0.4 % (0-1); Eosinophil# 0.26 X10^3/uL; Eosinophils% 2.8 % (0-5); Hematocrit 42.8 % (37-47); Hemoglobin 13.4 g/dL (12.0-15.0); Lymphocyte # 0.79 X10^3/ul (0.83-4.51); Lymphocyte % 8.6 % (19-41); Mean Corp Hgb Conc 31.3 g/dL (32-36); Mean Corpuscular Hgb 25.9 pg (27.0-32.0); Mean Corpuscular Volume 82.6 fL (81-99); Mean Platelet Vol. 8.5 fl (6.2-12.0); Monocyte# 0.46 X10^3/uL; NRBC Flagged by Analyzer 0 % (0-5); Neutrophil # 7.56 X10^3/uL (2.7-7.7); Neutrophil % 82.4 % (47-70); Platelet Count 245 K/mm3 (150-450); RBC Distribution Width CV 15.9 % (11.6-14.6); RBC Distribution Width SD 48.1 fl (35.1-43.9); Red Blood Count 5.18 M/mm3 (4.2-5.4); White Blood Count 9.2 K/mm3 (4.4-11.0)
[2023-06-01 10:28] LABS: AST(SGOT) 28 U/L (15-37); Alanine Aminotransfer ALT/SGPT 36 U/L (13-56); Albumin, Serum 3.3 g/dL (3.2-5.0); Alkaline Phosphatase 128 U/L (45-117); Anion Gap 5 (5-15); BUN 13 mg/dL (7-18); BUN/Creat Ratio 11.5 RATIO (10-20); Bilirubin, Direct 0.12 mg/dL (0.00-0.30); Chloride 102 mmol/L (98-107); Creatinine, Serum 1.13 mg/dL (0.55-1.02); EST Glomerular Filtration Rate 51 mL/min (>60); Est Glom Filt Rate - Afr Amer 61 mL/min (>60); Estimated Creatinine Clearance 37.16 ml/min; Globulin 3.8 g/dL (2.2-4.2); Glucose 117 mg/dL (74-106); Lipase 35 U/L (13-75); Potassium 3.8 mmol/L (3.5-5.1); Protein, Total 7.1 g/dL (6.4-8.2); Sodium Level 133 mmol/L (136-145)
--- NOTE | 2023-06-01 10:47 | CT_ITS ---
STUDY: CT ABDOMEN AND PELVIS WITH CONTRAST REASON FOR EXAM: Female, 67 years old. RUQ pain. RADIATION DOSAGE (If Supplied By Facility): CTDIvol = ( 18.29 ) mGy, DLP = ( 1207.65 ) mGycm TECHNIQUE: Transaxial images were obtained from the dome of the diaphragm to the symphysis pubis without oral contrast. IV 100mL Isovue-300 was administered. Sagittal and coronal images were reconstructed. Individualized dose optimization techniques were used for this CT. COMPARISON: Comparison is made with prior study dated October 02, 2020. FINDINGS: Mild linear scarring at the lung bases. Coronary artery calcification. There is decreased attenuation of the liver consistent with steatosis. Normal gallbladder and extrahepatic biliary system. Normal spleen. Normal pancreas. Normal bilateral adrenal glands. Normal right kidney. Normal left kidney. Stable mild fullness of the left renal pelvis. Normal visualized stomach. Normal small intestine. There are scattered colonic diverticula consistent with diverticulosis. The appendix is visualized and appears normal. There is diffuse atherosclerotic calcification of the abdominal aorta and its major visceral branches, without a demonstrated aneurysm. Normal inferior vena cava. Normal retroperitoneum. Normal urinary bladder. There is absence of the uterus consistent with a prior hysterectomy. Moderate-sized umbilical hernia containing a portion of nondilated transverse colon. The neck of the hernia measures 6 cm. There are diffuse degenerative changes of the visualized lumbar spine. CT/Abdomen/Pelvis W IV Cont ONLY IMPRESSION: Moderate-sized umbilical hernia containing a portion of the transverse colon. Diffuse fatty infiltration of the liver. Electronically Signed: Wilfred De aL Cruz MD at 11:30 EDT ,
[2023-06-01 13:25] VITALS: BP 148/78; PULSE 80
== END 2023-06-01 13:26 | disposition home or self-care (01) ==
PROVIDERS: Emergency Provider Emergency Medicine; PCP Internal Medicine; Visit Provider Emergency Medicine
DX: R11.0 Nausea (principal); I10 Essential (primary) hypertension; Z79.899 Other long term (current) drug therapy; Z87.891 Personal history of nicotine dependence
CPT/HCPCS: 74177; 80048; 80076; 83690; 85025; 93005; 99283; Q9967; A4216

== ENCOUNTER 2023-06-05 14:27 | Emergency (ER) | payer MEDICARE, MEDICAID, SELFPAY ==
[2023-04-18 07:37] VITALS: BMI 41.0
[2023-06-05 14:28] VITALS: BP 175/105; PULSE 73; RESP 18; TEMP 36.2; O2SAT 99
--- NOTE | 2023-06-05 14:40 | EDS_ITS ---
HPI History of Present Illness Chief Complaint: Nausea/Vomiting Informant: patient Onset/Context/Timing Onset: Days Context: Gradual Onset Timing: Waxes and wanes Narrative Narrative: Presents secondary to continued nausea and vomiting. Patient was seen by myself in the ER last week. She had seen her primary care physician as an outpatient in late April secondary to right-sided pain, worse in her right upper arm as well as nausea. She was found to have gallstones on an ultrasound. She was then sent in for a HIDA scan in early May and they found abnormal findings concerning for cholecystitis/duct obstruction. When I saw the patient last week her lab work was unremarkable. She was not complaining of any pain but was having nausea. After discussion with surgery in GI a CT scan was performed that did not show any acute abnormalities. Patient was instructed to follow-up with surgery as an outpatient was given a prescription for Zofran. She presents back today stating that Zofran is not helping and she continues to have nausea and vomiting. She also reports some urinary incontinence. She is me she is on an antibiotic for UTI but does not remember the name. The last antibiotic I can find in the computer was filled on May 13 for a 5-day course of Keflex. [facility] Medical History Anxiety and depression Arthritis BMI 40.0-44.9, adult COPD (chronic obstructive pulmonary disease) Cough due to bronchospasm Degenerative lumbar spinal stenosis Dyspnea on exertion Encounter for screening for malignant neoplasm of lung in current smoker with 30 pack year history or greater GERD (gastroesophageal reflux disease) Hypertension Kidney stones Oral thrush PTSD (post-traumatic stress disorder) Spinal stenosis Tobacco use disorder, continuous Home Medications prazosin 1 mg capsule 1 mg PO DAILY blood pressure 09/29/17 [History Last Taken 01/08/21] sertraline 100 mg tablet 200 mg PO DAILY depression 10/23/20 [History Last Taken 01/08/21] aripiprazole 20 mg tablet 20 mg PO DAILY mood 01/06/21 [History Last Taken 01/08/21] prazosin 2 mg capsule 2 mg PO QHS blood pressure 01/06/21 [History Last Taken 01/08/21] Pulse oximeter #1 ea 02/05/21 [Rx Last Taken Unknown] blood pressure monitor (Blood Pressure Kit) #1 ea 02/05/21 [Rx Last Taken Unknown] walker (Ultra-Light Rollator misc) #1 ea 03/24/21 [Rx Last Taken Unknown] bupropion HCl 150 mg 24 hr tablet, extended release 300 mg PO DAILY mood 05/05/21 [History Last Taken Unknown] budesonide 160 mcg-glycopyr 9 mcg-formot 4.8 mcg/actuation HFA inhaler (Breztri Aerosphere) 2 inh inhalation BID 12/07/21 [History Last Taken Unknown] amlodipine 5 mg tablet 5 mg PO DAILY blood pressure #90 tabs 01/14/22 [Rx Last Taken Unknown] azelastine-fluticasone 137 mcg-50 mcg/spray nasal spray 1 spray intranasal BID #23 grams 01/26/22 [Rx Last Taken Unknown] underpads (Bed Underpads) #40 ea 02/16/22 [Rx Last Taken Unknown] celecoxib 200 mg capsule 200 mg PO DAILY #60 caps 06/28/22 [Rx Last Taken Unknown] vibegron 75 mg tablet (Gemtesa) 75 mg PO DAILY 07/14/22 [History Last Taken Unknown] esomeprazole magnesium 20 mg capsule,delayed release 20 mg PO DAILY gerd #90 caps 08/12/22 [Rx Last Taken Unknown] lisinopril 20 mg-hydrochlorothiazide 25 mg tablet 1 tab PO DAILY blood pressure #90 tabs 08/12/22 [Rx Last Taken Unknown] nebulizer inhalation 3XD 12/08/22 [History Last Taken Unknown] lidocaine 5 % patch and menthol 6 % gel topical kit See Rx Instructions topical .COMPLEX #1 ea 02/11/23 [Rx Last Taken Unknown] budesonide 160 mcg-glycopyr 9 mcg-formot 4.8 mcg/actuation HFA inhaler (Breztri Aerosphere) 2 inh inhalation BID 03/24/23 [History Last Taken Unknown] prednisone 10 mg tablet 10 mg PO DAILY 03/24/23 [History Last Taken Unknown] buprenorphine 5 mcg/hour weekly transdermal patch 1 patch transdermal QWEEK 05/19/23 [History Last Taken Unknown] cholecalciferol (vitamin D3) 1,250 mcg (50,000 unit) capsule 1,250 mcg PO QWEEK #12 caps 05/19/23 [Rx Last Taken Unknown] levothyroxine 50 mcg tablet 50 mcg PO DAILY #30 tabs 05/19/23 [Rx Last Taken Unknown] nitrofurantoin monohydrate/macrocrystals 100 mg capsule (Macrobid) 100 mg PO Q12H 5 days #10 caps 06/05/23 [Rx Last Taken Unknown] ondansetron 4 mg disintegrating tablet 4 mg PO Q8H PRN PRN Nausea #30 tabs 06/05/23 [Rx Last Taken Unknown] promethazine 25 mg tablet 25 mg PO TID PRN nausea and vomiting #14 tabs 06/05/23 [Rx Last Taken Unknown] Allergy/AdvReac Type Severity Reaction Status Date / Time prednisone AdvReac Other Verified 06/05/23 14:28 Sulfa (Sulfonamide AdvReac Nausea Verified 06/05/23 14:28 Antibiotics) Family History Mother Diabetes Hypertension Breast cancer Father Heart disease Hypertension Myocardial infarction, Onset Age: 46 Surgical History History of History of D&C History of hand surgery History of hysterectomy Social History Smoking Status: Former smoker quit date: 01/03/21 Tobacco: How many years used: 36 alcohol intake: never substance use type: does not use what type of physical activity do you participate in: none ROS ROS ED Constitutional Constitutional ED: Denies chills or fever(s) Eyes Eyes: Denies discharge from eye(s) ENT ENT ED: Denies discharge from eye(s), rhinorrhea or sore throat Cardiovascular Cardiovascular: Denies chest pain or palpitations Respiratory/Chest Respiratory/Chest: Denies cough or dyspnea Gastrointestinal Gastrointestinal: Reports abdominal pain, nausea and vomiting; Denies diarrhea Genitourinary Genitourinary ED: Denies dysuria Musculoskeletal Musculoskeletal: Denies back pain or extremity pain Integumentary Denies Abrasions or rash Neurologic Neurologic: Denies headache(s) or weakness Psychiatric Psychiatric: Denies anxiety or depression Allergic/Immunologic Allergic/Immunologic ED: Denies lip swelling or urticaria EXAM Physical Exam Const Vital Signs: 06/05/23 14:28 Temperature 97.2 F L Temperature Source Temporal Pulse Rate 73 Respiratory Rate 18 Blood Pressure 175/105 H Blood Pressure Mean 128 Pulse Ox 99 Oxygen Delivery Method Nasal Cannula Oxygen Flow Rate (L/min) 2 Positive well nourished and well developed General Appearance ED: well developed HEENT Reports normocephalic and head/scalp atraumatic Eyes PERRL and EOMs intact bilaterally Neck supple Chest Wall inspection of chest normal and palpation of chest normal Resp normal respiratory effort and clear to auscultation bilaterally Cardio regular rate and regular rhythm GI GI Narrative: Focal tenderness in the epigastrium. No tenderness in the right upper quadrant. Hypoactive but present bowel sounds are noted. Palpation: soft Extremity normal to inspection Neuro oriented x3 and no sensory deficits noted Sensorium / Orientation: alert Motor Exam: strength 5/5 throughout Psych mental status grossly normal Skin no rashes or lesions noted MDM MDM MDM Narrative Medical decision making narrative: Patient was given Phenergan for nausea. Lab work rechecked to evaluate any change in her LFTs. Urinalysis obtained to evaluate for infection/hematuria. Lab Data Attestation: I reviewed the patient's lab results. Labs: Laboratory Results - last 24 hr 06/05/23 06/05/23 15:05 15:55 WBC 8.6 RBC 5.38 Hgb 13.9 Hct 45.0 MCV 83.6 MCH 25.8 L MCHC 30.9 L RDW Std Deviation 49.0 H RDW Coeff of Ronny 16.2 H Plt Count 238 MPV 8.6 Immature Gran % (Auto) 0.700 Neut % (Auto) 74.1 H Lymph % (Auto) 15.8 L [place] % (Auto) 6.3 Eos % (Auto) 2.9 Baso % (Auto) 0.2 Absolute Neuts (auto) 6.4 Absolute Lymphs (auto) 1.36 Nucleated RBC % 0 Sodium 134 L Potassium 3.8 Chloride 100 Carbon Dioxide 29.0 Anion Gap 5 BUN 14 Creatinine 1.10 H Est GFR (MDRD) Af Amer 63 Est GFR (MDRD) Non-Af 52 L BUN/Creatinine Ratio 12.7 Glucose 122 H Calcium 8.7 Total Bilirubin 0.20 Direct Bilirubin 0.11 AST 23 ALT 36 Alkaline Phosphatase 136 H Total Protein 6.9 Albumin 3.4 Globulin 3.5 Lipase 56 Urine Color Yellow Urine Clarity Clear Urine pH 7.0 Ur Specific [place] 1.010 Urine Protein 15 H Urine Glucose (UA) Normal Urine Ketones Negative Urine Occult Blood 25 H Urine Nitrite Positive H Urine Bilirubin Negative Urine Urobilinogen Normal Ur Leukocyte Esterase 100 H Urine RBC 0 SEEN Urine WBC 5-10 SEEN Ur Squamous Epith Cells 0 SEEN Urine Bacteria 2+ Urine Mucus 0 SEEN Treatment and Re-Evaluation :: CBC reveals normal white count 8.6 with 74% neutrophils. Hemoglobin is 13.9. Chemistry studies reveal a sodium of 134 with a BUN of 14 and creatinine 1.10. Glucose is 122. LFTs normal other than an alk phos of 136. This is consistent with her prior values. Urinalysis does reveal infection with positive nitrites, 5-10 white cells, 2+ bacteria. Urine has been sent for culture. Patient will be given a dose of Rocephin. Patient tells me that she has a medicine at home that she can take whenever she feels like she is getting an infection. I talked to the pharmacy and they last filled a prescription for her on May 13 for a 5-day course of Keflex. Given that I do not know what antibiotic she has at home, she will be given a prescription for Macrobid as well as a prescription for Phenergan. She does report significant improvement in her nausea. Discharge Plan Triage Chief Complaint: Nausea/Vomiting ED Provider: Sahraa Montoya Dx/Rx/DC Orders Clinical Impression: UTI (urinary tract infection), Nausea Instructions: ED Cystitis Female Adult, ED Vomiting (Adult) Prescriptions: New nitrofurantoin monohyd/m-cryst [Macrobid] 100 mg capsule 100 mg PO Q12H 5 Days Qty: 10 0RF Rx Instructions: must administer with a meal/food promethazine 25 mg tablet 25 mg PO TID PRN (Reason: nausea and vomiting) Qty: 14 0RF No Action azelastine-fluticasone 137-50 mcg/spray spray,non-aerosol 1 spray intranasal BID Qty: 23 6RF Rx Instructions: administer into each nostril Breztri Aerosphere 160-9-4.8 mcg/actuation HFA aerosol inhaler 2 inh inhalation BID nebulizer inhalation 3XD Gemtesa 75 mg tablet 75 mg PO DAILY buprenorphine 5 mcg/hour patch weekly 1 patch transdermal QWEEK cholecalciferol (vitamin D3) 1,250 mcg (50,000 unit) capsule 1,250 mcg PO QWEEK Qty: 12 3RF prazosin 1 MG capsule 1 mg PO DAILY sertraline 100 mg tablet 200 mg PO DAILY prazosin 2 mg capsule 2 mg PO QHS aripiprazole 20 mg tablet 20 mg PO DAILY bupropion HCl 150 mg tablet extended release 24 hr 300 mg PO DAILY prednisone 10 mg tablet 10 mg PO DAILY Kait Aerosphere 160-9-4.8 mcg/actuation HFA aerosol inhaler 2 inh inhalation BID lidocaine-menthol 5-6 % kit See Rx Instructions .ROUTE .COMPLEX Qty: 1 0RF Rx Instructions: apply LIDIOCAINE PATCH once a day/may leave on for up to 12 hrs; apply MENTHOL GEL 1 - 4 times/day as needed for pain. (DME) blood pressure monitor [Blood Pressure Kit] Kit See Rx Instructions .ROUTE .MEDSUPPLY Qty: 1 0RF Rx Instructions: Check daily and as needed (DME) Pulse oximeter See Rx Instructions .Route .MEDSUPPLY Qty: 1 0RF Rx Instructions: Monitor daily or as needed (DME) Ultra-Light Rollator Misc See Rx Instructions .ROUTE .MEDSUPPLY Qty: 1 0RF Rx Instructions: As directed amlodipine 5 mg tablet 5 mg PO DAILY Qty: 90 3RF (DME) underpads [Bed Underpads] Pad See Rx Instructions .Route Qty: 40 6RF Rx Instructions: R32. celecoxib 200 mg capsule 200 mg PO DAILY Qty: 60 0RF esomeprazole magnesium 20 mg capsule,delayed release(DR/EC) 20 mg PO DAILY Qty: 90 3RF lisinopril-hydrochlorothiazide 20-25 mg tablet 1 tab PO DAILY Qty: 90 3RF levothyroxine 50 mcg tablet 50 mcg PO DAILY Qty: 30 2RF ondansetron 4 mg tablet,disintegrating 4 mg PO Q8H PRN PRN (Reason: Nausea) Qty: 30 0RF Primary Care Provider: Rosa Bragg Referrals: Zahra Smith MD [Med Staff - Active Staff] - 1-2 Weeks Rosa Bragg MD [Primary Care Provider] - Disposition Disposition: Home, Self Care
[2023-06-05 15:15] LABS: Absolute Lymphocyte Count 1.36 X10^3/uL (0.83-4.51); Absolute Neutrophil Count 6.4 X10^3/uL (2.0-7.7); Basophil# 0.02 X10^3/uL; Basophil% 0.2 % (0-1); Eosinophil# 0.25 X10^3/uL; Eosinophils% 2.9 % (0-5); Hemoglobin 13.9 g/dL (12.0-15.0); Lymphocyte # 1.36 X10^3/ul (0.83-4.51); Lymphocyte % 15.8 % (19-41); Mean Corp Hgb Conc 30.9 g/dL (32-36); Mean Corpuscular Hgb 25.8 pg (27.0-32.0); Mean Corpuscular Volume 83.6 fL (81-99); Mean Platelet Vol. 8.6 fl (6.2-12.0); Monocyte# 0.54 X10^3/uL; Monocyte% 6.3 % (0-10); NRBC Flagged by Analyzer 0 % (0-5); Neutrophil # 6.37 X10^3/uL (2.7-7.7); Neutrophil % 74.1 % (47-70); Platelet Count 238 K/mm3 (150-450); RBC Distribution Width CV 16.2 % (11.6-14.6); Red Blood Count 5.38 M/mm3 (4.2-5.4); White Blood Count 8.6 K/mm3 (4.4-11.0)
[2023-06-05] MEDS: proMETHazine 25 MG/ML Syringe 12.5 MG IM (15:21)
[2023-06-05 15:33] LABS: AST(SGOT) 23 U/L (15-37); Alanine Aminotransfer ALT/SGPT 36 U/L (13-56); Albumin, Serum 3.4 g/dL (3.2-5.0); Alkaline Phosphatase 136 U/L (45-117); Anion Gap 5 (5-15); BUN 14 mg/dL (7-18); BUN/Creat Ratio 12.7 RATIO (10-20); Bilirubin, Direct 0.11 mg/dL (0.00-0.30); Calcium,Total 8.7 mg/dL (8.5-10.1); Chloride 100 mmol/L (98-107); EST Glomerular Filtration Rate 52 mL/min (>60); Est Glom Filt Rate - Afr Amer 63 mL/min (>60); Globulin 3.5 g/dL (2.2-4.2); Glucose 122 mg/dL (74-106); Lipase 56 U/L (13-75); Potassium 3.8 mmol/L (3.5-5.1); Protein, Total 6.9 g/dL (6.4-8.2); Sodium Level 134 mmol/L (136-145)
[2023-06-05 15:58] LABS: Mucous, Urine 0 SEEN /hpf (<or=2+); Red Blood Cells-Urine 0 SEEN /hpf (0-5); Squamous Epithelial Cells - UA 0 SEEN /hpf (5-10)
[2023-06-05 16:27] VITALS: RESP 18
[2023-06-05 16:32] LABS: Color, Urine Yellow (Yellow); Glucose, Dipstick Normal (Normal); Ketone-Dipstick Negative (Negative); Leukocyte Esterase-Dipstick 100 /ul (Negative); Nitrite-Dipstick Positive (Negative); Occult Blood-Urine 25 /ul (Negative); Protein-Dipstick 15 mg/dl (Negative); Urine Bilirubin Dipstick Negative (Negative); Urine Clarity Clear (Clear); Urine Urobilinogen Normal (Normal)
[2023-06-05 16:39] LABS: Bacteria 2+ /hpf (None Seen); White Blood Cells 5-10 SEEN /hpf (0-5)
[2023-06-05] MEDS: Ceftriaxone 1 GM/50 ML BAG IV (17:02)
== END 2023-06-05 17:51 | disposition home or self-care (01) ==
PROVIDERS: Emergency Provider Emergency Medicine; PCP Internal Medicine; Visit Provider Emergency Medicine
DX: N39.0 Urinary tract infection, site not specified (principal); J44.9 Chronic obstructive pulmonary disease, unspecified; Z87.891 Personal history of nicotine dependence; I10 Essential (primary) hypertension
CPT/HCPCS: 80048; 80076; 81001; 83690; 85025; 87077; 87086; 87088; 87186; 96365; 96372; 99284; J7030; A4216

== ENCOUNTER 2023-06-25 19:53 | Emergency (ER) | payer MEDICARE, MEDICAID, SELFPAY ==
[2023-04-18 07:37] VITALS: BMI 41.0
[2023-06-25 19:55] VITALS: BP 104/68; BP 99/67; PULSE 68; PULSE 75; RESP 16; TEMP 36.6; O2SAT 96; O2SAT 97; BMI 40.2
--- NOTE | 2023-06-25 20:11 | EDS_ITS ---
[facility] <Dr. Elio James, DO - Last Filed: 06/25/23 22:05> History of Present Illness Chief Complaint: Other, Pain/Inj Detail of Chief Complaint: Not feeling well and syncope Informant: patient Narrative Narrative: Patient presents to the emergency department via EMS from home. Patient states that she has not been feeling well and has been ill for about a month. Patient states that she was diagnosed with gallstones at our hospital and a hernia and she has seen one of our local surgeons Dr. De Souza who referred her to another surgeon in [place]. Patient states that 3 days ago she was having pain in her arms and abdomen and went to [place] emergency department where she had another ultrasound and a CAT scan and was medicated for pain and ultimately discharged home and told to follow-up with her surgeon as she has an appointment on July 04. Tonight she has been having pain in her right upper arm. Patient states that she felt like she was going to have diarrhea as she has had diarrhea for about a week and so she went to the bathroom. While on the commode patient started feeling lightheaded and dizzy and sweaty and thinks she may have passed out for short time as she called for her housemate. Patient was helped off the commode and to the bedroom by her friend who then called EMS. Patient just feels generally weak. Per EMS she was hypotensive with systolic of 80s. Patient denies recent travel or antibiotic usage. She denies chest pain or shortness of breath. [facility] <Dr. Elio James, DO - Last Filed: 06/25/23 22:05> [facility] Medical History (Updated 06/26/23 @ 00:[address] Andry Fernandez MD) Anxiety and depression Arthritis BMI 40.0-44.9, adult COPD (chronic obstructive pulmonary disease) Cough due to bronchospasm Degenerative lumbar spinal stenosis Dyspnea on exertion Encounter for screening for malignant neoplasm of lung in current smoker with 30 pack year history or greater Gallstones GERD (gastroesophageal reflux disease) Hypertension Kidney stones Oral thrush PTSD (post-traumatic stress disorder) Spinal stenosis Tobacco use disorder, continuous Home Medications prazosin 1 mg capsule 1 mg PO DAILY blood pressure 09/29/17 [History Last Taken 01/08/21] sertraline 100 mg tablet 200 mg PO DAILY depression 10/23/20 [History Last Taken 01/08/21] aripiprazole 20 mg tablet 20 mg PO DAILY mood 01/06/21 [History Last Taken 01/08/21] prazosin 2 mg capsule 2 mg PO QHS blood pressure 01/06/21 [History Last Taken 01/08/21] Pulse oximeter #1 ea 02/05/21 [Rx Last Taken Unknown] blood pressure monitor (Blood Pressure Kit) #1 ea 02/05/21 [Rx Last Taken Unknown] deepak (Ultra-Light Rollator misc) #1 ea 03/24/21 [Rx Last Taken Unknown] bupropion HCl 150 mg 24 hr tablet, extended release 300 mg PO DAILY mood 05/05/21 [History Last Taken Unknown] budesonide 160 mcg-glycopyr 9 mcg-formot 4.8 mcg/actuation HFA inhaler (Breztri Aerosphere) 2 inh inhalation BID 12/07/21 [History Last Taken Unknown] amlodipine 5 mg tablet 5 mg PO DAILY blood pressure #90 tabs 01/14/22 [Rx Last Taken Unknown] azelastine-fluticasone 137 mcg-50 mcg/spray nasal spray 1 spray intranasal BID #23 grams 01/26/22 [Rx Last Taken Unknown] underpads (Bed Underpads) #40 ea 02/16/22 [Rx Last Taken Unknown] celecoxib 200 mg capsule 200 mg PO DAILY #60 caps 06/28/22 [Rx Last Taken Unknown] vibegron 75 mg tablet (Gemtesa) 75 mg PO DAILY 07/14/22 [History Last Taken Unknown] esomeprazole magnesium 20 mg capsule,delayed release 20 mg PO DAILY gerd #90 caps 08/12/22 [Rx Last Taken Unknown] lisinopril 20 mg-hydrochlorothiazide 25 mg tablet 1 tab PO DAILY blood pressure #90 tabs 08/12/22 [Rx Last Taken Unknown] nebulizer inhalation 3XD 12/08/22 [History Last Taken Unknown] lidocaine 5 % patch and menthol 6 % gel topical kit See Rx Instructions topical .COMPLEX #1 ea 02/11/23 [Rx Last Taken Unknown] budesonide 160 mcg-glycopyr 9 mcg-formot 4.8 mcg/actuation HFA inhaler (Breztri Aerosphere) 2 inh inhalation BID 03/24/23 [History Last Taken Unknown] prednisone 10 mg tablet 10 mg PO DAILY 03/24/23 [History Last Taken Unknown] buprenorphine 5 mcg/hour weekly transdermal patch 1 patch transdermal QWEEK 05/19/23 [History Last Taken Unknown] cholecalciferol (vitamin D3) 1,250 mcg (50,000 unit) capsule 1,250 mcg PO QWEEK #12 caps 05/19/23 [Rx Last Taken Unknown] levothyroxine 50 mcg tablet 50 mcg PO DAILY #30 tabs 05/19/23 [Rx Last Taken Unknown] nitrofurantoin monohydrate/macrocrystals 100 mg capsule (Macrobid) 100 mg PO Q12H 5 days #10 caps 06/05/23 [Rx Last Taken Unknown] ondansetron 4 mg disintegrating tablet 4 mg PO Q8H PRN PRN Nausea #30 tabs 06/05/23 [Rx Last Taken Unknown] promethazine 25 mg tablet 25 mg PO TID PRN nausea and vomiting #14 tabs 06/05/23 [Rx Last Taken Unknown] Allergy/AdvReac Type Severity Reaction Status Date / Time prednisone AdvReac Other Verified 06/25/23 20:01 Sulfa (Sulfonamide AdvReac Nausea Verified 06/25/23 20:01 Antibiotics) Family History Mother Diabetes Hypertension Breast cancer Father Heart disease Hypertension Myocardial infarction, Onset Age: 46 Surgical History History of History of D&C History of hand surgery History of hysterectomy Social History Smoking Status: Former smoker quit date: 01/03/21 Tobacco: How many years used: 36 alcohol intake: never substance use type: does not use what type of physical activity do you participate in: none ROS <Dr. Elio James, DO - Last Filed: 06/25/23 22:05> ROS ED Review of Systems ROS Unobtainable: other Constitutional Constitutional ED: Reports lethargy; Denies chills, fever(s), sweats or weight loss Eyes Eyes: Denies blurry vision, change in vision or diplopia ENT ENT ED: Denies rhinorrhea or sore throat Cardiovascular Cardiovascular: Denies chest pain, orthopnea or racing heartbeat Respiratory/Chest Respiratory/Chest: Denies cough, dyspnea, dyspnea on exertion, orthopnea or sputum Gastrointestinal Gastrointestinal: Reports abdominal pain and diarrhea; Denies nausea or vomiting Genitourinary Genitourinary ED: Denies dysuria, hematuria or urinary frequency Musculoskeletal Musculoskeletal: Denies arthralgias, back pain, myalgias or neck pain Integumentary Denies abscess, Abrasions or rash Neurologic Neurologic: Denies headache(s) or weakness Psychiatric Psychiatric: Denies anxiety, depression or suicidal thoughts Endocrine Endocrinology: Denies polydipsia, polyphagia or polyuria Hematologic/Lymphatic Hematologic/Lymphatic: Denies easy bleeding, easy bruising or lymphadenopathy Allergic/Immunologic Allergic/Immunologic ED: Denies mouth swelling, tongue swelling or urticaria EXAM <Dr. Elio James, DO - Last Filed: 06/25/23 22:05> Physical Exam Const Vital Signs: 06/25/23 19:55 06/25/23 19:55 06/25/23 22:07 Temperature 97.8 F Temperature Source Oral Pulse Rate 75 68 Pulse Rate [Lying] Pulse Rate [Sitting (for 1 minute prior to obtaining)] Pulse Rate [Standing (for 1 minute prior to obtaining)] Respiratory Rate 16 16 Respiratory Pattern Normal Blood Pressure 104/68 99/67 Blood Pressure [Lying] Blood Pressure [Sitting (for 1 minute prior to obtaining)] Blood Pressure [Standing (for 1 minute prior to obtaining)] Blood Pressure Mean 80 77 Blood Pressure Mean [Lying] Blood Pressure Mean [Sitting (for 1 minute prior to obtaining)] Blood Pressure Mean [Standing (for 1 minute prior to obtaining)] Pulse Ox 97 96 Oxygen Delivery Method Nasal Cannula Nasal Cannula Oxygen Flow Rate (L/min) 3 3 06/25/23 21:30 06/25/23 21:27 06/25/23 23:11 Temperature Temperature Source Pulse Rate 70 85 Pulse Rate [Lying] 79 Pulse Rate [Sitting (for 1 minute prior to obtaining)] 71 Pulse Rate [Standing (for 1 minute prior to obtaining)] 82 Respiratory Rate 20 H 18 Respiratory Pattern Blood Pressure 113/65 108/84 H Blood Pressure [Lying] 101/70 Blood Pressure [Sitting (for 1 minute prior to obtaining)] 104/54 L Blood Pressure [Standing (for 1 minute prior to obtaining)] 118/66 Blood Pressure Mean 81 92 Blood Pressure Mean [Lying] 80 Blood Pressure Mean [Sitting (for 1 minute prior to obtaining)] 70 Blood Pressure Mean [Standing (for 1 minute prior to obtaining)] 83 Pulse Ox 92 99 Oxygen Delivery Method Nasal Cannula Nasal Cannula Oxygen Flow Rate (L/min) 2 3 Positive well nourished and well developed General Appearance ED: well developed and NAD HEENT Reports TM's clear and moist mucous membranes normocephalic and atraumatic; Negative for trauma or tenderness Tympanic Membrane ED: Yes TM's clear Eyes PERRL and EOMs intact bilaterally General Eye ED: Negative for pale conjunctiva or scleral icterus Neck no lymphadenopathy, supple and no JVD General: Negative for tenderness Chest Wall inspection of chest normal and palpation of chest normal Chest: Negative for tenderness Resp normal respiratory effort and clear to auscultation bilaterally Effort and Inspection: Negative for respiratory distress or pain with movement Auscultation: Negative for rhonchi, wheezes or diminished lung sounds Cardio regular rate, regular rhythm, S1 normal heart sound, S2 normal heart sound and no murmurs Peripheral Pulses: pulses 2+ throughout GI normal to inspection, nondistended, normoactive bowel sounds, soft to palpation, non-distended and no masses GI Narrative: Patient morbidly obese. Mild diffuse tenderness. There is no rebound, rigidity, or penial signs. No mass palpated. Back/Spine no CVA tenderness and no thoracic nor lumbar tenderness Extremity normal to inspection General Extremety ED: Negative for edema General Extremity: Negative for edema Neuro oriented x3, CN's II-XII intact bilaterally, no sensory deficits noted and gait normal Sensorium / Orientation: awake, alert, oriented to person, oriented to place and oriented to time Motor Exam: strength 5/5 throughout and strength abnormal Psych mental status grossly normal Skin no rashes or lesions noted and no wounds <Dr. Andry Fernandez MD - Last Filed: 06/26/23 00:20> Physical Exam Const Vital Signs: 06/25/23 19:55 06/25/23 19:55 06/25/23 22:07 Temperature 97.8 F Temperature Source Oral Pulse Rate 75 68 Pulse Rate [Lying] Pulse Rate [Sitting (for 1 minute prior to obtaining)] Pulse Rate [Standing (for 1 minute prior to obtaining)] Respiratory Rate 16 16 Respiratory Pattern Normal Blood Pressure 104/68 99/67 Blood Pressure [Lying] Blood Pressure [Sitting (for 1 minute prior to obtaining)] Blood Pressure [Standing (for 1 minute prior to obtaining)] Blood Pressure Mean 80 77 Blood Pressure Mean [Lying] Blood Pressure Mean [Sitting (for 1 minute prior to obtaining)] Blood Pressure Mean [Standing (for 1 minute prior to obtaining)] Pulse Ox 97 96 Oxygen Delivery Method Nasal Cannula Nasal Cannula Oxygen Flow Rate (L/min) 3 3 06/25/23 21:30 06/25/23 21:27 06/25/23 23:11 Temperature Temperature Source Pulse Rate 70 85 Pulse Rate [Lying] 79 Pulse Rate [Sitting (for 1 minute prior to obtaining)] 71 Pulse Rate [Standing (for 1 minute prior to obtaining)] 82 Respiratory Rate 20 H 18 Respiratory Pattern Blood Pressure 113/65 108/84 H Blood Pressure [Lying] 101/70 Blood Pressure [Sitting (for 1 minute prior to obtaining)] 104/54 L Blood Pressure [Standing (for 1 minute prior to obtaining)] 118/66 Blood Pressure Mean 81 92 Blood Pressure Mean [Lying] 80 Blood Pressure Mean [Sitting (for 1 minute prior to obtaining)] 70 Blood Pressure Mean [Standing (for 1 minute prior to obtaining)] 83 Pulse Ox 92 99 Oxygen Delivery Method Nasal Cannula Nasal Cannula Oxygen Flow Rate (L/min) 2 3 [facility] <Dr. Elio James, DO - Last Filed: 06/25/23 22:05> [facility] Narrative Medical decision making narrative: Patient presents with complaint of feeling lightheaded and dizzy after being on commode. Patient also has been having abdominal pain and history of gallstones and a known hernia for which she is to follow-up with a surgeon. Had recent work-up in [place] and had CT scan and ultrasound 3 days ago that apparently warrant significant enough to warrant admission. Patient complaining of just feeling generally weak. IV line established. Patient was given a liter Sparkle fluid bolus. CBC with differential white count 9.6 with hemoglobin of 12 and platelet count of 209. Chemistries unremarkable. LFTs unremarkable. Lactate pending. Lipase normal at 42. Troponin was normal at 12. EKG obtained arrival showed a sinus rhythm with a rate of [address] changes. I did order a repeat CT scan of the abdomen pelvis this patient's blood pressures been somewhat soft at times dropping into the 90s systolic and per EMS she had a systolic in the 80s. She received a second liter of fluid. Urinalysis pending. Case turned over to evening physician awaiting urinalysis, CT results, and final disposition. Lab Data Attestation: I reviewed the patient's lab results. Labs: Laboratory Results - last 24 hr 06/25/23 06/25/23 06/25/23 20:32 21:50 22:00 WBC 9.6 RBC 4.52 Hgb 11.9 L Hct 38.3 MCV 84.7 MCH 26.3 L MCHC 31.1 L RDW Std Deviation 50.2 H RDW Coeff of Ronny 16.2 H Plt Count 209 MPV 8.7 Immature Gran % (Auto) 0.700 Neut % (Auto) 78.2 H Lymph % (Auto) 12.8 L Wilkes % (Auto) 6.1 Eos % (Auto) 1.9 Baso % (Auto) 0.3 Absolute Neuts (auto) 7.5 Absolute Lymphs (auto) 1.23 Nucleated RBC % 0 Sodium 137 Potassium 3.5 Chloride 108 H Carbon Dioxide 28.0 Anion Gap 1 L BUN 18 Creatinine 1.26 H Estim Creat Clear Calc 33.33 Est GFR (MDRD) Af Amer 54 L Est GFR (MDRD) Non-Af 45 L BUN/Creatinine Ratio 14.3 Glucose 105 Lactic Acid Cancelled 1.6 Calcium 8.5 Total Bilirubin 0.30 AST 27 ALT 38 Alkaline Phosphatase 108 Troponin I High Sens 12 Total Protein 6.1 L Albumin 2.8 L Globulin 3.3 Albumin/Globulin Ratio 0.8 L Lipase 42 Urine Color Yellow Urine Clarity Sl. Cloudy Urine pH 5.0 Ur Specific Gardiner 1.020 Urine Protein 15 H Urine Glucose (UA) Normal Urine Ketones 5 H Urine Occult Blood 10 H Urine Nitrite Positive H Urine Bilirubin 1 H Urine Urobilinogen 1 H Ur Leukocyte Esterase 25 H Urine RBC 0 SEEN Urine WBC 0-5 SEEN Ur Squamous Epith Cells 0-5 SEEN Urine Bacteria 1+ Hyaline Casts 10-25 SEEN Urine Mucus 0 SEEN Radiography Diagnostic Testing: Clinical Impression(s) from Imaging Studies Abdomen/Pelvis CT 06/25/23 21:47 IMPRESSION: 1. Similar findings. Supraumbilical hernia containing fat, vessels and a 6 cm segment of nonobstructed transverse colon. No evidence of strangulation. The hernia neck is measured at slightly larger. Similar hernia sac and contents. 2. Hypodense left adrenal nodule stable from December 2020, most consistent with benign adenoma. 3. Degenerative spine changes. Electronically Signed: Vilma Mcdonnell MD at 23:39 EDT , <Dr. Andry Fernandez MD - Last Filed: 06/26/23 00:20> [facility] Lab Data Labs: Laboratory Results - last 24 hr 06/25/23 06/25/23 06/25/23 20:32 21:50 22:00 WBC 9.6 RBC 4.52 Hgb 11.9 L Hct 38.3 MCV 84.7 MCH 26.3 L MCHC 31.1 L RDW Std Deviation 50.2 H RDW Coeff of Ronny 16.2 H Plt Count 209 MPV 8.7 Immature Gran % (Auto) 0.700 Neut % (Auto) 78.2 H Lymph % (Auto) 12.8 L Wilkes % (Auto) 6.1 Eos % (Auto) 1.9 Baso % (Auto) 0.3 Absolute Neuts (auto) 7.5 Absolute Lymphs (auto) 1.23 Nucleated RBC % 0 Sodium 137 Potassium 3.5 Chloride 108 H Carbon Dioxide 28.0 Anion Gap 1 L BUN 18 Creatinine 1.26 H Estim Creat Clear Calc 33.33 Est GFR (MDRD) Af Amer 54 L Est GFR (MDRD) Non-Af 45 L BUN/Creatinine Ratio 14.3 Glucose 105 Lactic Acid Cancelled 1.6 Calcium 8.5 Total Bilirubin 0.30 AST 27 ALT 38 Alkaline Phosphatase 108 Troponin I High Sens 12 Total Protein 6.1 L Albumin 2.8 L Globulin 3.3 Albumin/Globulin Ratio 0.8 L Lipase 42 Urine Color Yellow Urine Clarity Sl. Cloudy Urine pH 5.0 Ur Specific Gardiner 1.020 Urine Protein 15 H Urine Glucose (UA) Normal Urine Ketones 5 H Urine Occult Blood 10 H Urine Nitrite Positive H Urine Bilirubin 1 H Urine Urobilinogen 1 H Ur Leukocyte Esterase 25 H Urine RBC 0 SEEN Urine WBC 0-5 SEEN Ur Squamous Epith Cells 0-5 SEEN Urine Bacteria 1+ Hyaline Casts 10-25 SEEN Urine Mucus 0 SEEN Radiography Diagnostic Testing: Clinical Impression(s) from Imaging Studies Abdomen/Pelvis CT 06/25/23 21:47 IMPRESSION: 1. Similar findings. Supraumbilical hernia containing fat, vessels and a 6 cm segment of nonobstructed transverse colon. No evidence of strangulation. The hernia neck is measured at slightly larger. Similar hernia sac and contents. 2. Hypodense left adrenal nodule stable from December 2020, most consistent with benign adenoma. 3. Degenerative spine changes. Electronically Signed: Vilma Mcdonnell MD at 23:39 EDT Reading Location ID and State: [facility] / [place] Tel , Service support , Rhythm Strip Rhythm Strip: Sinus Rhythm Rate: 75 Ectopy: None EKG Initial EKG: Attestation: I personally reviewed and interpreted this EKG as follows: Interpretation: Sinus Rhythm, No Acute Injury Pattern and Non-Specific ST Changes Treatment and Re-Evaluation Comments:: Patient checked out to me. Urinalysis returns showing positive nitrite but she always has positive nitrite, and the rest of the urinalysis is normal in my interpretation of it given the fact that she has no urinary symptoms is that she has no acute urinary infection especially with the lack of pyuria/bacteria. Her lactate is within normal limits. Her blood pressure has remained stable and normal even with getting her up out of bed and ambulating her. I reviewed the CT images and the report which I agree with, basically shows that everything is stable and nothing new/acute. Patient is feeling well. I think based on the available history that she probably had a vasovagal episode associated with a large bowel movement and amount of diarrhea. Less likely to be severe dehydration that caused the transient hypotension. Patient is comfortable going home, we discussed reasons to return. Discharge Plan Triage Chief Complaint: Other, Pain/Inj ED Provider: Elio James Dx/Rx/DC Orders Clinical Impression: Near syncope, Diarrhea, Abdominal pain, Transient hypotension Instructions: ED Near-Fainting- Vagal Reaction Prescriptions: No Action azelastine-fluticasone 137-50 mcg/spray spray,non-aerosol 1 spray intranasal BID Qty: 23 6RF Rx Instructions: administer into each nostril Breztri Aerosphere 160-9-4.8 mcg/actuation HFA aerosol inhaler 2 inh inhalation BID nebulizer inhalation 3XD Gemtesa 75 mg tablet 75 mg PO DAILY buprenorphine 5 mcg/hour patch weekly 1 patch transdermal QWEEK cholecalciferol (vitamin D3) 1,250 mcg (50,000 unit) capsule 1,250 mcg PO QWEEK Qty: 12 3RF prazosin 1 MG capsule 1 mg PO DAILY sertraline 100 mg tablet 200 mg PO DAILY prazosin 2 mg capsule 2 mg PO QHS aripiprazole 20 mg tablet 20 mg PO DAILY bupropion HCl 150 mg tablet extended release 24 hr 300 mg PO DAILY prednisone 10 mg tablet 10 mg PO DAILY Breztri Aerosphere 160-9-4.8 mcg/actuation HFA aerosol inhaler 2 inh inhalation BID lidocaine-menthol 5-6 % kit See Rx Instructions .ROUTE .COMPLEX Qty: 1 0RF Rx Instructions: apply LIDIOCAINE PATCH once a day/may leave on for up to 12 hrs; apply MENTHOL GEL 1 - 4 times/day as needed for pain. nitrofurantoin monohyd/m-cryst [Macrobid] 100 mg capsule 100 mg PO Q12H 5 Days Qty: 10 0RF Rx Instructions: must administer with a meal/food promethazine 25 mg tablet 25 mg PO TID PRN (Reason: nausea and vomiting) Qty: 14 0RF (DME) blood pressure monitor [Blood Pressure Kit] Kit See Rx Instructions .ROUTE .MEDSUPPLY Qty: 1 0RF Rx Instructions: Check daily and as needed (DME) Pulse oximeter See Rx Instructions .Route .MEDSUPPLY Qty: 1 0RF Rx Instructions: Monitor daily or as needed (DME) Ultra-Light Rollator Misc See Rx Instructions .ROUTE .MEDSUPPLY Qty: 1 0RF Rx Instructions: As directed amlodipine 5 mg tablet 5 mg PO DAILY Qty: 90 3RF (DME) underpads [Bed Underpads] Pad See Rx Instructions .Route Qty: 40 6RF Rx Instructions: R32. celecoxib 200 mg capsule 200 mg PO DAILY Qty: 60 0RF esomeprazole magnesium 20 mg capsule,delayed release(DR/EC) 20 mg PO DAILY Qty: 90 3RF lisinopril-hydrochlorothiazide 20-25 mg tablet 1 tab PO DAILY Qty: 90 3RF levothyroxine 50 mcg tablet 50 mcg PO DAILY Qty: 30 2RF ondansetron 4 mg tablet,disintegrating 4 mg PO Q8H PRN PRN (Reason: Nausea) Qty: 30 0RF Primary Care Provider: Rosa Bragg Referrals: Rosa Bragg MD [Primary Care Provider] - As soon as possible Disposition Disposition: Home, Self Care
[2023-06-25 20:58] LABS: Absolute Lymphocyte Count 1.23 X10^3/uL (0.83-4.51); Absolute Neutrophil Count 7.5 X10^3/uL (2.0-7.7); Basophil# 0.03 X10^3/uL; Basophil% 0.3 % (0-1); Eosinophil# 0.18 X10^3/uL; Eosinophils% 1.9 % (0-5); Hematocrit 38.3 % (37-47); Hemoglobin 11.9 g/dL (12.0-15.0); Lymphocyte # 1.23 X10^3/ul (0.83-4.51); Lymphocyte % 12.8 % (19-41); Mean Corp Hgb Conc 31.1 g/dL (32-36); Mean Corpuscular Hgb 26.3 pg (27.0-32.0); Mean Corpuscular Volume 84.7 fL (81-99); Mean Platelet Vol. 8.7 fl (6.2-12.0); Monocyte# 0.58 X10^3/uL; Monocyte% 6.1 % (0-10); NRBC Flagged by Analyzer 0 % (0-5); Neutrophil # 7.49 X10^3/uL (2.7-7.7); Neutrophil % 78.2 % (47-70); Platelet Count 209 K/mm3 (150-450); RBC Distribution Width CV 16.2 % (11.6-14.6); RBC Distribution Width SD 50.2 fl (35.1-43.9); Red Blood Count 4.52 M/mm3 (4.2-5.4); White Blood Count 9.6 K/mm3 (4.4-11.0)
[2023-06-25 21:25] LABS: ALB/GLOB Ratio 0.8 RATIO (0.9-2.4); AST(SGOT) 27 U/L (15-37); Alanine Aminotransfer ALT/SGPT 38 U/L (13-56); Albumin, Serum 2.8 g/dL (3.2-5.0); Alkaline Phosphatase 108 U/L (45-117); Anion Gap 1 (5-15); BUN 18 mg/dL (7-18); BUN/Creat Ratio 14.3 RATIO (10-20); Calcium,Total 8.5 mg/dL (8.5-10.1); Chloride 108 mmol/L (98-107); Creatinine, Serum 1.26 mg/dL (0.55-1.02); EST Glomerular Filtration Rate 45 mL/min (>60); Est Glom Filt Rate - Afr Amer 54 mL/min (>60); Estimated Creatinine Clearance 33.33 ml/min; Globulin 3.3 g/dL (2.2-4.2); Glucose 105 mg/dL (74-106); Lipase 42 U/L (13-75); Potassium 3.5 mmol/L (3.5-5.1); Protein, Total 6.1 g/dL (6.4-8.2); Sodium Level 137 mmol/L (136-145); Troponin-I HS 12 pg/mL (3.0-54.0)
[2023-06-25 21:27] VITALS: BP 101/70; BP 104/54; BP 118/66; PULSE 71; PULSE 79; PULSE 82
[2023-06-25 21:30] VITALS: BP 113/65; PULSE 70; RESP 20; O2SAT 92
[2023-06-25] MEDS: 0.9% Normal Saline (1000mL) 1,000 ML 1000 ML IV (21:30)
--- NOTE | 2023-06-25 21:47 | CT_ITS ---
EXAM: CT ABDOMEN AND PELVIS WITH INTRAVENOUS CONTRAST CLINICAL INDICATION: abdominal pain TECHNIQUE: Helically acquired images were obtained of the abdomen and pelvis with intravenous contrast. This CT exam was performed using one or more of the following dose reduction techniques: automated exposure control, adjustment of the mA and/or kV according to patient size, and/or use of iterative reconstruction technique. CONTRAST: IV 100mL [id number]-370 RADIATION DOSE: CTDIvol = 23.64 mGy, DLP = 1249.85 mGy-cm. COMPARISON: June 01, 2023. FINDINGS: LOWER THORAX: Mild bands of atelectasis in the lung bases and small cyst again noted in the left juxtapleural lung. No cardiomegaly. No significant pericardial effusion. ABDOMEN: LIVER: The liver is upper limits of normal at 17.6 cm in length with mild low-attenuation fatty infiltrated appearance. GALLBLADDER AND BILE DUCTS: Mildly distended gallbladder, 4 cm transverse, but no obvious stones or wall thickening. No intra- or extrahepatic biliary ductal dilation. PANCREAS: Unremarkable. No focal cystic or solid mass. SPLEEN: Upper limits of normal spleen, 12 cm craniocaudal. ADRENALS: There is a small left hypodense adrenal nodule, Hounsfield units -19, roughly 1.4 cm x 1.2 cm, it was present on comparison to chest CTA January 06, 2021. KIDNEYS AND URETERS: Small nonobstructing stone again noted in the lower pole left kidney, and similar mildly prominent left renal pelvis. STOMACH AND BOWEL: Similar appearance of large supraumbilical hernia containing fat, vessels, and a short segment of transverse colon. The hernia is roughly 8 cm superior to the umbilicus. Hernia neck is slightly larger, roughly 2.6 cm craniocaudal and 4.8 cm transverse, it was 2.4 cm x 4.4 cm. The hernia sac is 7.6 cm x 5 cm, not significantly changed. There is a roughly 6 cm long segment of herniated transverse colon in the right hernia sac but only mildly distended more proximal transverse colon and there is stool and gas in the distal transverse colon, mild gas in the left colon and rectosigmoid. No focal inflammatory change. PELVIS: APPENDIX: Normal appendix is seen inferior to the cecum. BLADDER: Unremarkable. REPRODUCTIVE: Slight gas in the posterior vagina. Hysterectomy. ABDOMEN and PELVIS: INTRAPERITONEAL SPACE: Unremarkable. No ascites or other fluid collection. No free air. BONES/JOINTS: Moderate multilevel degenerative spine changes, fusion of T8-9, multilevel vacuum discs and disc space narrowing. Modic type endplate degenerative changes at L2-3. No evidence of significant spinal canal stenosis. No suspicious lytic or blastic abnormality. SOFT TISSUES: See above. VASCULATURE: Atherosclerotic calcifications of aortoiliac vessels and mild calcifications at the origins of the intra-abdominal vessels without high-grade stenosis. Tortuosity of the distal aorta, no roni aneurysm or dissection. LYMPH NODES: Unremarkable. No enlarged lymph nodes. CT/Abdomen/Pelvis W IV Cont ONLY IMPRESSION: 1. Similar findings. Supraumbilical hernia containing fat, vessels and a 6 cm segment of nonobstructed transverse colon. No evidence of strangulation. The hernia neck is measured at slightly larger. Similar hernia sac and contents. 2. Hypodense left adrenal nodule stable from December 2020, most consistent with benign adenoma. 3. Degenerative spine changes. Electronically Signed: Vilma Mcdonnell MD at 23:39 EDT ,
[2023-06-25 22:09] LABS: Mucous, Urine 0 SEEN /hpf (<or=2+); Red Blood Cells-Urine 0 SEEN /hpf (0-5)
[2023-06-25 22:17] LABS: Color, Urine Yellow (Yellow); Glucose, Dipstick Normal (Normal); Ketone-Dipstick 5 mg/dl (Negative); Leukocyte Esterase-Dipstick 25 /ul (Negative); Nitrite-Dipstick Positive (Negative); Occult Blood-Urine 10 /ul (Negative); Protein-Dipstick 15 mg/dl (Negative); Urine Clarity Sl. Cloudy (Clear); Urine Urobilinogen 1 mg/dl (Normal)
[2023-06-25 22:20] LABS: Urine Bilirubin Dipstick 1 mg/dL (Negative)
[2023-06-25 22:30] LABS: Squamous Epithelial Cells - UA 0-5 SEEN /hpf (5-10)
[2023-06-25] MEDS: 0.9% Normal Saline (1000mL) 1,000 ML 999 ML IV (22:30)
[2023-06-25 22:31] LABS: Bacteria 1+ /hpf (None Seen); White Blood Cells 0-5 SEEN /hpf (0-5)
[2023-06-25 22:32] LABS: Hyaline Cast 10-25 SEEN /lpf (0-5)
[2023-06-25 22:34] LABS: Lactic Acid 1.6 mmol/L (0.4-1.9)
[2023-06-25] MEDS: 0.9% Normal Saline (1000mL) 1,000 ML 150 ML IV (23:00)
[2023-06-25 23:11] VITALS: BP 108/84; PULSE 85; RESP 18; O2SAT 99
[2023-06-26 00:20] VITALS: BP 234/104; PULSE 81; O2SAT 96
== END 2023-06-26 00:31 | disposition home or self-care (01) ==
PROVIDERS: Emergency Provider Emergency Medicine; PCP Internal Medicine; Visit Provider Emergency Medicine
DX: R55 Syncope and collapse (principal); J44.9 Chronic obstructive pulmonary disease, unspecified; R10.9 Unspecified abdominal pain; Z87.891 Personal history of nicotine dependence; I10 Essential (primary) hypertension; M79.602 Pain in left arm; R19.7 Diarrhea, unspecified; M79.621 Pain in right upper arm; I95.89 Other hypotension
CPT/HCPCS: 74177; 80053; 81001; 83605; 83690; 84484; 85025; 87428; 93005; 96360; 96361; 99285; J7030; P9612; Q9967; A4216

== ENCOUNTER 2023-07-08 08:16 | Emergency (ER) | payer MEDICARE, MEDICAID, SELFPAY ==
[2023-04-18 07:37] VITALS: BMI 41.0
[2023-07-08 08:18] VITALS: BP 173/99; PULSE 90; RESP 26; TEMP 36.7; O2SAT 96; BMI 38.8
[2023-07-08 08:21] VITALS: BP 173/99; PULSE 86; RESP 24; TEMP 36.7; O2SAT 95
--- NOTE | 2023-07-08 08:28 | CT_ITS ---
STUDY: CT ABDOMEN AND PELVIS WITH CONTRAST REASON FOR EXAM: Female, 67 years old. Peritonitis. One month history of abdominal pain and nausea and vomiting. RADIATION DOSAGE (If Supplied By Facility): CTDIvol = ( 18.73 ) mGy, DLP = ( 1145.02 ) mGycm TECHNIQUE: Transaxial images were obtained from the dome of the diaphragm to the symphysis pubis without oral contrast. IV 100mL Isovue-370 was administered. Sagittal and coronal images were reconstructed. Individualized dose optimization techniques were used for this CT. COMPARISON: Comparison is made with prior study dated June 25, 2023. FINDINGS: Increased markings at the lung bases suggestive of bibasilar atelectasis and scarring. This has progressed slightly since prior study. Subpleural bleb is seen at the left lung base. The visualized portions of the heart are within normal limits. There is decreased attenuation of the liver consistent with steatosis. Normal gallbladder and extrahepatic biliary system. Normal spleen. Normal pancreas. Stable small left adrenal adenoma. Normal right kidney. Prominence of the left renal pelvis with no roni hydronephrosis. Stable punctate calcification in the lower pole calyx of the left kidney. There is a small hiatal hernia. Normal small intestine. Normal colon. The appendix is visualized and appears normal. There is diffuse atherosclerotic calcification of the abdominal aorta, without a demonstrated aneurysm. Normal inferior vena cava. Normal retroperitoneum. Normal urinary bladder. There is absence of the uterus consistent with a prior hysterectomy. Anterior ventral hernia containing nondilated transverse colon. The neck of the hernia measures 5.9 cm. There are degenerative changes of the visualized lumbar spine. CT/Abdomen/Pelvis W IV Cont ONLY IMPRESSION: Large anterior ventral hernia containing nondilated small bowel loop. Diffuse fatty infiltration of liver. Stable small left adrenal adenoma. Electronically Signed: Wilfred De La Cruz MD at 10:46 EST ,
--- NOTE | 2023-07-08 08:35 | EDS_ITS ---
HPI History of Present Illness Chief Complaint: Abd Pain Detail of Chief Complaint: Abdominal pain, hernia, dark black emesis and shortness of breath Informant: patient and EMS Onset/Context/Timing Onset: Today (Nausea and vomiting today) and Weeks (Abdominal pain for 3 to 4 weeks, worse today) Context: - (Not applicable) Timing: Continuous (Per patient abdominal pain has been constant x1 month.) Quality: Pain, crampy Location: Central abdomen Current Severity: Moderate Maximum Severity: Severe Worsened by: Movement, palpation Relieved by: Nothing Associated Symptoms Associated Symptoms: Nausea and vomiting x3 today. 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 Emesis is black in color per squad. She reports abdominal pain x1 month. She has a known ventral hernia. The pain has gotten worse. She states no one will operate on her. She is scheduled to see Dr. Yao to assess her lung function. She denies fever or chills. She denies night sweats. She does endorse exercise intolerance. Patient complains of central abdominal pain that has a colicky component. She has not had a bowel movement in 24 hours. She has had decreased p.o. intake. She does endorse thirst and dry mouth. She is not on an anticoagulant or antithrombotic. She denies headache, visual, ocular auditory symptoms. She denies chest pain, pressure or tightness. She does endorse shortness of breath with wheezing. She is on chronic oxygen. She denies leg pain, swelling discoloration. She denies history of VTE. Prior similar symptoms: No Recent Illness/Hospitalization: Yes (Lab work from the end of May was reviewed. Patient's creatinine is sli) [facility] Medical History Anxiety and depression Arthritis BMI 40.0-44.9, adult COPD (chronic obstructive pulmonary disease) Cough due to bronchospasm Degenerative lumbar spinal stenosis Dyspnea on exertion Encounter for screening for malignant neoplasm of lung in current smoker with 30 pack year history or greater Gallstones GERD (gastroesophageal reflux disease) Hypertension Kidney stones Oral thrush PTSD (post-traumatic stress disorder) Spinal stenosis Tobacco use disorder, continuous Home Medications prazosin 1 mg capsule 1 mg PO DAILY blood pressure 09/29/17 [History Last Taken 01/08/21] sertraline 100 mg tablet 200 mg PO DAILY depression 10/23/20 [History Last Taken 01/08/21] aripiprazole 20 mg tablet 20 mg PO DAILY mood 01/06/21 [History Last Taken 01/08/21] prazosin 2 mg capsule 2 mg PO QHS blood pressure 01/06/21 [History Last Taken 01/08/21] Pulse oximeter #1 ea 02/05/21 [Rx Last Taken Unknown] blood pressure monitor (Blood Pressure Kit) #1 ea 02/05/21 [Rx Last Taken Unknown] walker (Ultra-Light Rollator misc) #1 ea 03/24/21 [Rx Last Taken Unknown] bupropion HCl 150 mg 24 hr tablet, extended release 300 mg PO DAILY mood 05/05/21 [History Last Taken Unknown] budesonide 160 mcg-glycopyr 9 mcg-formot 4.8 mcg/actuation HFA inhaler (Breztri Aerosphere) 2 inh inhalation BID 12/07/21 [History Last Taken Unknown] amlodipine 5 mg tablet 5 mg PO DAILY blood pressure #90 tabs 01/14/22 [Rx Last Taken Unknown] azelastine-fluticasone 137 mcg-50 mcg/spray nasal spray 1 spray intranasal BID #23 grams 01/26/22 [Rx Last Taken Unknown] underpads (Bed Underpads) #40 ea 02/16/22 [Rx Last Taken Unknown] celecoxib 200 mg capsule 200 mg PO DAILY #60 caps 06/28/22 [Rx Last Taken Unknown] vibegron 75 mg tablet (Gemtesa) 75 mg PO DAILY 07/14/22 [History Last Taken Unknown] esomeprazole magnesium 20 mg capsule,delayed release 20 mg PO DAILY gerd #90 caps 08/12/22 [Rx Last Taken Unknown] lisinopril 20 mg-hydrochlorothiazide 25 mg tablet 1 tab PO DAILY blood pressure #90 tabs 08/12/22 [Rx Last Taken Unknown] nebulizer inhalation 3XD 12/08/22 [History Last Taken Unknown] lidocaine 5 % patch and menthol 6 % gel topical kit See Rx Instructions topical .COMPLEX #1 ea 02/11/23 [Rx Last Taken Unknown] budesonide 160 mcg-glycopyr 9 mcg-formot 4.8 mcg/actuation HFA inhaler (Breztri Aerosphere) 2 inh inhalation BID 03/24/23 [History Last Taken Unknown] prednisone 10 mg tablet 10 mg PO DAILY 03/24/23 [History Last Taken Unknown] buprenorphine 5 mcg/hour weekly transdermal patch 1 patch transdermal QWEEK 05/19/23 [History Last Taken Unknown] cholecalciferol (vitamin D3) 1,250 mcg (50,000 unit) capsule 1,250 mcg PO QWEEK #12 caps 05/19/23 [Rx Last Taken Unknown] levothyroxine 50 mcg tablet 50 mcg PO DAILY #30 tabs 05/19/23 [Rx Last Taken Unknown] nitrofurantoin monohydrate/macrocrystals 100 mg capsule (Macrobid) 100 mg PO Q12H 5 days #10 caps 06/05/23 [Rx Last Taken Unknown] ondansetron 4 mg disintegrating tablet 4 mg PO Q8H PRN PRN Nausea #30 tabs 06/05/23 [Rx Last Taken Unknown] promethazine 25 mg tablet 25 mg PO TID PRN nausea and vomiting #14 tabs 06/05/23 [Rx Last Taken Unknown] ondansetron 4 mg disintegrating tablet 4 mg PO Q8H PRN PRN Nausea #10 tabs 07/08/23 [Rx Last Taken Unknown] prednisone 20 mg tablet 60 mg (3 x 20 mg) PO DAILY #15 TABLETS 07/08/23 [Rx Last Taken Unknown] Allergy/AdvReac Type Severity Reaction Status Date / Time prednisone AdvReac Other Verified 07/08/23 08:21 Sulfa (Sulfonamide AdvReac Nausea Verified 07/08/23 08:21 Antibiotics) Family History Mother Diabetes Hypertension Breast cancer Father Heart disease Hypertension Myocardial infarction, Onset Age: 46 Surgical History History of History of D&C History of hand surgery History of hysterectomy Social History (Updated 07/08/23 @ 08:[address] Delfino Salmeron MD) household members: none Smoking Status: Former smoker quit date: 01/03/21 Tobacco: How many years used: 36 alcohol intake: never substance use type: does not use what type of physical activity do you participate in: none ROS ROS ED Constitutional Constitutional ED: Denies chills, fever(s), subjective, sweats or weight loss Eyes Eyes: Denies blurry vision or change in vision ENT ENT ED: Denies rhinorrhea or sore throat Cardiovascular Cardiovascular: Denies chest pain, orthopnea, palpitations, paroxysmal nocturnal dyspnea or racing heartbeat Respiratory/Chest Respiratory/Chest: Reports cough, dyspnea and dyspnea on exertion; Denies orthopnea or paroxysmal nocturnal dyspnea Gastrointestinal Gastrointestinal: Reports abdominal pain, nausea, vomiting and other Details: Hematemesis/black tarry emesis ; Denies constipation, diarrhea or melena Genitourinary Genitourinary ED: Reports other Details: Decreased urine output ; Denies dysuria, hematuria or urinary frequency Musculoskeletal Musculoskeletal: Denies arthralgias or myalgias Integumentary Denies rash Neurologic Neurologic: Reports weakness; Denies headache(s) or paresthesias Psychiatric Psychiatric: Reports anxiety Endocrine Endocrinology: Denies cold intolerance or heat intolerance Hematologic/Lymphatic Hematologic/Lymphatic: Reports systems reviewed and no addt'l complaints, except as documented and other Details: Patient has bruises on her forearm. She was unaware of these bruises. Allergic/Immunologic Allergic/Immunologic ED: Denies mouth swelling or tongue swelling EXAM Physical Exam Const Vital Signs: 07/08/23 08:18 07/08/23 08:21 07/08/23 09:00 Temperature 98.1 F 98.1 F Temperature Source Oral Oral Pulse Rate 90 86 Respiratory Rate 26 H 24 H Respiratory Pattern Blood Pressure 173/99 H 173/99 H Blood Pressure Mean 123 123 Pulse Ox 96 95 98 Oxygen Delivery Method Nasal Cannula Nasal Cannula Nasal Cannula Oxygen Flow Rate (L/min) 3 3 3 07/08/23 09:00 07/08/23 10:12 07/08/23 10:22 Temperature 100.1 F H Temperature Source Oral Pulse Rate 88 110 H 123 H Respiratory Rate 34 H 18 22 H Respiratory Pattern Tachypnea Blood Pressure 158/73 H 156/94 H Blood Pressure Mean 101 114 Pulse Ox 98 90 Oxygen Delivery Method Nasal Cannula Nasal Cannula Oxygen Flow Rate (L/min) 3 3 Positive well nourished, well developed, obese and unkempt Constitutional Narrative: Patient appears uncomfortable. Vital signs are noted for tachypnea, elevated blood pressure. She is saturating 95 to 96% on 3 L. She is on her baseline oxygen supplementation. General Appearance ED: unkempt, well developed and pallor; Negative for cyanotic, diaphoretic or NAD Nutritional Appearance: obese HEENT Reports dry mucous membranes Mouth ED: Yes dry mucous membranes Mouth: dry mucous membranes Chest Wall inspection of chest normal and palpation of chest normal Resp No normal respiratory effort and No clear to auscultation bilaterally Auscultation: wheezes expiratory wheezes and throughout Cardio regular rate, regular rhythm, S1 normal heart sound, S2 normal heart sound and no murmurs GI hepatosplenomegaly; Negative for normal to inspection, nondistended, normoactive bowel sounds, non-tender or non-distended GI Narrative: Patient has a significant ventral hernia. This was reduced with minimal effort. Took approximately 15 to 30 seconds. Patient did complain of pain. She does have percussion tenderness. Bowel sounds are markedly diminished. Back/Spine no CVA tenderness Back/Spine Narrative: Inspection of the back is remarkable for dry skin. There is no CVA tenderness. Extremity Extremity Narrative: There is bruising noted upper extremity. General Extremety ED: Yes other findings; Negative for tenderness General Extremity: other findings Neuro oriented x3, CN's II-XII intact bilaterally and no sensory deficits noted Sensorium / Orientation: alert Psych Appearance: unkempt Mood & Affect: depressed Skin no rashes or lesions noted and No skin turgor normal General Skin Exam: pallor; Negative for elasticity normal or jaundice MDM MDM MDM Narrative Medical decision making narrative: Concern patient may have a partial bowel obstruction with GI bleed. Since she has peritoneal findings will obtain CT of the abdomen with IV contrast. Lactate was obtained as well as CBC and comprehensive metabolic panel. Because patient has wheezing throughout with increased x-ray phase albuterol and DuoNeb were ordered. Patient was medicated with Reglan for her nausea since she received Zofran prior to presentation with no improvement. She also received IV morphine. Prior records were reviewed. Patient does have renal insufficiency. Will obtain BUN and creatinine prior to IV contrast. NG was placed to decompress as well as determine if she is still bleeding since squad and patient reported black tarry emesis. This also may be fecal matter due to a obstruction secondary to ventral hernia that was reduced. History & Record Review Additional record(s) reviewed:: Prior outpatient record, Prior ED visit and Prior labs Lab Data Attestation: I reviewed the patient's lab results. Lab results narrative: White count is elevated 16.8 thousand with shift. H&H is normal. This may represent infection. This also could be due to pain and stress reaction. In light of patient's medical problems concerned this may represent intra-abdominal infection. Lactate is normal at 1.7. CO2 is elevated at 33. Creatinine is slight elevated at 1.23 with a GFR of 46. Alkaline phosphatase is elevated 135. Alkaline phosphatase been elevated in the past. Labs: Laboratory Results - last 24 hr 07/08/23 07/08/23 08:25 08:37 WBC 16.8 H RBC 5.05 Hgb 13.1 Hct 42.4 MCV 84.0 MCH 25.9 L MCHC 30.9 L RDW Std Deviation 49.3 H RDW Coeff of Ronny 16.0 H Plt Count 253 MPV 8.6 Immature Gran % (Auto) 1.000 H Neut % (Auto) 88.6 H Lymph % (Auto) 3.6 L Giles % (Auto) 6.1 Eos % (Auto) 0.4 Baso % (Auto) 0.3 Absolute Neuts (auto) 14.9 H Absolute Lymphs (auto) 0.61 L Nucleated RBC % 0 Sodium 135 L Potassium 3.5 Chloride 97 L Carbon Dioxide 33.0 H Anion Gap 5 BUN 16 Creatinine 1.23 H Estim Creat Clear Calc 34.14 Est GFR (MDRD) Af Amer 56 L Est GFR (MDRD) Non-Af 46 L BUN/Creatinine Ratio 13.0 Glucose 151 H Lactic Acid 1.7 Calcium 9.3 Total Bilirubin 0.60 AST 35 ALT 37 Alkaline Phosphatase 135 H Total Protein 7.3 Albumin 3.0 L Globulin 4.3 H Albumin/Globulin Ratio 0.7 L Radiography Chest X-Ray - ED: 1 View (KUB was performed even that was not ordered. The nasogastric tube is noted to be in proper position. Suspected this was the case since patient had bilious return. This is infinitely reviewed and interpreted by me at11:38) Diagnostic Testing: Clinical Impression(s) from Imaging Studies Abdomen/Pelvis CT 07/08/23 08:28 IMPRESSION: Large anterior ventral hernia containing nondilated small bowel loop. Diffuse fatty infiltration of liver. Stable small left adrenal adenoma. Electronically Signed: Wilfred De La Cruz MD at 10:46 EST , KUB X-Ray 07/08/23 10:40 IMPRESSION: Large anterior ventral hernia containing nondilated small bowel loop. Diffuse fatty infiltration of liver. Stable small left adrenal adenoma. Electronically Signed: Wilfred De La Cruz MD at 10:46 EST , Treatment and Re-Evaluation :: NG was placed. Patient was noted to have bile. There is no blood or coffee- ground emesis. Patient was reassessed at 1122. There is no blood or coffee grounds or abnormal appearing gastric contents. There is bile. This would rule out an upper GI bleed. Plan is to discharge to home. She was instructed to keep her appoint with Dr. Yao. She was instructed that she needs to have her ventral hernia repaired. Furthermore, lungs were auscultated and there is no wheezing. Patient was discharged with burst of prednisone. Discharge Plan Triage Chief Complaint: Abd Pain ED Provider: Delfino Salmeron Dx/Rx/DC Orders Clinical Impression: Ventral hernia, recurrent, COPD exacerbation, Nausea & vomiting, Abdominal pain, Acute bronchospasm, Anxiety and depression, GERD (gastroesophageal reflux disease), Mixed obstructive and restrictive ventilatory defect, History of hypertension Instructions: ED COPD Flare, ED Hernia (Adult) Prescriptions: New prednisone 20 mg tablet 60 mg PO DAILY Qty: 15 0RF ondansetron [ondansetron] 4 mg tablet,disintegrating 4 mg PO Q8H PRN PRN (Reason: Nausea) Qty: 10 0RF No Action azelastine-fluticasone 137-50 mcg/spray spray,non-aerosol 1 spray intranasal BID Qty: 23 6RF Rx Instructions: administer into each nostril Breztri Aerosphere 160-9-4.8 mcg/actuation HFA aerosol inhaler 2 inh inhalation BID nebulizer inhalation 3XD Gemtesa 75 mg tablet 75 mg PO DAILY buprenorphine 5 mcg/hour patch weekly 1 patch transdermal QWEEK cholecalciferol (vitamin D3) 1,250 mcg (50,000 unit) capsule 1,250 mcg PO QWEEK Qty: 12 3RF prazosin 1 MG capsule 1 mg PO DAILY sertraline 100 mg tablet 200 mg PO DAILY prazosin 2 mg capsule 2 mg PO QHS aripiprazole 20 mg tablet 20 mg PO DAILY bupropion HCl 150 mg tablet extended release 24 hr 300 mg PO DAILY prednisone 10 mg tablet 10 mg PO DAILY Breztri Aerosphere 160-9-4.8 mcg/actuation HFA aerosol inhaler 2 inh inhalation BID lidocaine-menthol 5-6 % kit See Rx Instructions .ROUTE .COMPLEX Qty: 1 0RF Rx Instructions: apply LIDIOCAINE PATCH once a day/may leave on for up to 12 hrs; apply MEN THOL GEL 1 - 4 times/day as needed for pain. nitrofurantoin monohyd/m-cryst [Macrobid] 100 mg capsule 100 mg PO Q12H 5 Days Qty: 10 0RF Rx Instructions: must administer with a meal/food promethazine 25 mg tablet 25 mg PO TID PRN (Reason: nausea and vomiting) Qty: 14 0RF (DME) blood pressure monitor [Blood Pressure Kit] Kit See Rx Instructions .ROUTE .MEDSUPPLY Qty: 1 0RF Rx Instructions: Check daily and as needed (DME) Pulse oximeter See Rx Instructions .Route .MEDSUPPLY Qty: 1 0RF Rx Instructions: Monitor daily or as needed (DME) Ultra-Light Rollator Misc See Rx Instructions .ROUTE .MEDSUPPLY Qty: 1 0RF Rx Instructions: As directed amlodipine 5 mg tablet 5 mg PO DAILY Qty: 90 3RF (DME) underpads [Bed Underpads] Pad See Rx Instructions .Route Qty: 40 6RF Rx Instructions: R32. celecoxib 200 mg capsule 200 mg PO DAILY Qty: 60 0RF esomeprazole magnesium 20 mg capsule,delayed release(DR/EC) 20 mg PO DAILY Qty: 90 3RF lisinopril-hydrochlorothiazide 20-25 mg tablet 1 tab PO DAILY Qty: 90 3RF levothyroxine 50 mcg tablet 50 mcg PO DAILY Qty: 30 2RF ondansetron 4 mg tablet,disintegrating 4 mg PO Q8H PRN PRN (Reason: Nausea) Qty: 30 0RF Primary Care Provider: Care Physician,No Primary Referrals: Rosa Bragg MD [Med Staff - Traffic Operations Manager] - Disposition Disposition: Home, Self Care
[2023-07-08] MEDS: Morphine 4 MG/ML Syringe IV ×2 (08:38→09:46)
[2023-07-08] MEDS: Oxymetazoline 0.05% 1 SPRAY SPRAY.BTL 2 SPRAY NASAL (08:39)
[2023-07-08] MEDS: 0.9% Normal Saline (1000mL) 1,000 ML 1000 ML IV (08:40)
[2023-07-08 08:44] LABS: Absolute Lymphocyte Count 0.61 X10^3/uL (0.83-4.51); Absolute Neutrophil Count 14.9 X10^3/uL (2.0-7.7); Basophil# 0.05 X10^3/uL; Basophil% 0.3 % (0-1); Eosinophil# 0.06 X10^3/uL; Eosinophils% 0.4 % (0-5); Hematocrit 42.4 % (37-47); Hemoglobin 13.1 g/dL (12.0-15.0); Lymphocyte # 0.61 X10^3/ul (0.83-4.51); Lymphocyte % 3.6 % (19-41); Mean Corp Hgb Conc 30.9 g/dL (32-36); Mean Corpuscular Hgb 25.9 pg (27.0-32.0); Mean Platelet Vol. 8.6 fl (6.2-12.0); Monocyte# 1.03 X10^3/uL; Monocyte% 6.1 % (0-10); NRBC Flagged by Analyzer 0 % (0-5); Neutrophil # 14.88 X10^3/uL (2.7-7.7); Neutrophil % 88.6 % (47-70); Platelet Count 253 K/mm3 (150-450); RBC Distribution Width SD 49.3 fl (35.1-43.9); Red Blood Count 5.05 M/mm3 (4.2-5.4); White Blood Count 16.8 K/mm3 (4.4-11.0)
[2023-07-08] MEDS: Metoclopramide 10 MG/2 ML Vial 5 MG IV (08:49)
[2023-07-08] MEDS: Albuterol 2.5 MG/3 ML VIAL.NEB. INHALATION ×3 (08:58→09:04)
[2023-07-08] MEDS: Ipratropium/Albuterol Sulfate 3 ML AMPUL.NEB INHALATION (08:58)
[2023-07-08 09:00] VITALS: PULSE 88; RESP 34; O2SAT 98
[2023-07-08 09:11] LABS: ALB/GLOB Ratio 0.7 RATIO (0.9-2.4); AST(SGOT) 35 U/L (15-37); Alanine Aminotransfer ALT/SGPT 37 U/L (13-56); Alkaline Phosphatase 135 U/L (45-117); Anion Gap 5 (5-15); BUN 16 mg/dL (7-18); Calcium,Total 9.3 mg/dL (8.5-10.1); Chloride 97 mmol/L (98-107); Creatinine, Serum 1.23 mg/dL (0.55-1.02); EST Glomerular Filtration Rate 46 mL/min (>60); Est Glom Filt Rate - Afr Amer 56 mL/min (>60); Estimated Creatinine Clearance 34.14 ml/min; Globulin 4.3 g/dL (2.2-4.2); Glucose 151 mg/dL (74-106); Potassium 3.5 mmol/L (3.5-5.1); Protein, Total 7.3 g/dL (6.4-8.2); Sodium Level 135 mmol/L (136-145)
[2023-07-08 09:14] LABS: Lactic Acid 1.7 mmol/L (0.4-1.9)
[2023-07-08 10:12] VITALS: BP 158/73; PULSE 110; RESP 18; TEMP 37.8; O2SAT 98
[2023-07-08 10:22] VITALS: BP 156/94; PULSE 123; RESP 22; O2SAT 90
--- NOTE | 2023-07-08 10:40 | RAD_ITS ---
STUDY: X-RAY - ABDOMEN/PELVIS REASON FOR EXAM: Female, 67 years old. NG insertion TECHNIQUE: Single AP view of the abdomen / pelvis. COMPARISON: None. FINDINGS: The tip of the nasogastric tube is in the first portion of the duodenum. RAD/Abdomen Single View (Portable) IMPRESSION: The tip of the nasogastric tube is in the first portion of the duodenum. Electronically Signed: Wilfred De La Cruz MD at 11:36 EST ,
[2023-07-08 11:59] VITALS: PULSE 100; RESP 18; O2SAT 98
--- NOTE | 2023-07-08 12:00 | ED.RN ---
PT WEAR HOME O2 BUT IT IS NOT PRESENT UPOIN DISCHARGED.
--- NOTE | 2023-07-08 12:01 | ED.RN ---
PT WEAR HOME O2, NO PORTABLE OXYGEN PRESENT. PT REPORTS SHE WILL GO HOME WITHOUT IT DESPITE OFFERS TO WAIT FOR FAMILY TO BRING HOME O2. PT REFUSES TO WAIT AND WANTS TO LEAVE WITHOUT O2.
== END 2023-07-08 12:23 | disposition home or self-care (01) ==
PROVIDERS: Emergency Provider Emergency Medicine; Visit Provider Emergency Medicine
DX: J44.1 Chronic obstructive pulmonary disease with (acute) exacerbation (principal); N28.9 Disorder of kidney and ureter, unspecified; I10 Essential (primary) hypertension; F32.A Depression, unspecified; F41.9 Anxiety disorder, unspecified; K21.9 Gastro-esophageal reflux disease without esophagitis; J98.01 Acute bronchospasm; K43.9 Ventral hernia without obstruction or gangrene; Z87.891 Personal history of nicotine dependence; E66.9 Obesity, unspecified; Z99.81 Dependence on supplemental oxygen
CPT/HCPCS: 74018; 74177; 80053; 83605; 85025; 94640; 96361; 96374; 96375; 96376; 99285; J7030; Q9967; A4216

== ENCOUNTER 2023-07-29 10:02 | Emergency (ER) | payer MEDICARE, MEDICAID, SELFPAY ==
[2023-04-18 07:37] VITALS: BMI 41.0
[2023-07-29 10:04] VITALS: BP 91/61; PULSE 82; RESP 17; TEMP 36.6; O2SAT 94
[2023-07-29 10:10] VITALS: BP 91/61; PULSE 79; RESP 14; TEMP 36.6; O2SAT 94
[2023-07-29 10:25] VITALS: BP 102/69; PULSE 81; RESP 15; O2SAT 95
--- NOTE | 2023-07-29 10:39 | EDS_ITS ---
HPI HPI - GI History of Present Illness Chief Complaint: Abd Pain Informant: patient Abdominal Pain/Flank Pain Onset: Today Context: Gradual Onset Timing: Continuous Quality: Sharp Location: Epigastric, RUQ and LUQ Worsened by: Food Relieved by: Nothing Nausea/Vomiting/Emesis GI Symptom: Positive for Nausea and Vomiting Quality: Positive for Nonbilious; Negative for Blood streaks, Coffee ground or Hematemesis Diarrhea/Melena/Hematochezia GI Symptom: Negative for Diarrhea, Melena or Hematochezia Associated Symptoms Associated Symptoms: Negative for Dysuria, Frequency or Hematuria Narrative Narrative: Patient presents with abdominal pain that became worse today. Patient has a history of cholelithiasis and a ventral abdominal hernia. Patient is on palliative care for this. Patient states her pain became worse today. Patient states she cannot tolerate the oxycodone that was prescribed by palliative care because it makes her constipated. Patient admits to pain over the upper abdomen. Patient describes her pain as sharp. Patient states it is worse after eating. Patient admits to some nausea and vomiting. Patient denies any hematemesis or coffee-ground emesis. Patient denies any diarrhea, melena, or hematochezia. Patient denies any dysuria, frequency, or hematuria. Family states patient had a near syncopal episode this morning and was feeling somewhat confused at that time. Patient states her blood pressure was noted to be low at that time. [facility] Medical History Anxiety and depression Arthritis BMI 40.0-44.9, adult COPD (chronic obstructive pulmonary disease) Cough due to bronchospasm Degenerative lumbar spinal stenosis Dyspnea on exertion Encounter for screening for malignant neoplasm of lung in current smoker with 30 pack year history or greater Gallstones GERD (gastroesophageal reflux disease) Hypertension Kidney stones Oral thrush PTSD (post-traumatic stress disorder) Spinal stenosis Tobacco use disorder, continuous Home Medications prazosin 1 mg capsule 1 mg PO DAILY blood pressure 09/29/17 [History Last Taken 01/08/21] sertraline 100 mg tablet 200 mg PO DAILY depression 10/23/20 [History Last Taken 01/08/21] aripiprazole 20 mg tablet 20 mg PO DAILY mood 01/06/21 [History Last Taken 01/08/21] prazosin 2 mg capsule 2 mg PO QHS blood pressure 01/06/21 [History Last Taken 01/08/21] Pulse oximeter #1 ea 02/05/21 [Rx Last Taken Unknown] blood pressure monitor (Blood Pressure Kit) #1 ea 02/05/21 [Rx Last Taken Unknown] deepak (Ultra-Light Rollator misc) #1 ea 03/24/21 [Rx Last Taken Unknown] bupropion HCl 150 mg 24 hr tablet, extended release 300 mg PO DAILY mood 05/05/21 [History Last Taken Unknown] budesonide 160 mcg-glycopyr 9 mcg-formot 4.8 mcg/actuation HFA inhaler (Breztri Aerosphere) 2 inh inhalation BID 12/07/21 [History Last Taken Unknown] amlodipine 5 mg tablet 5 mg PO DAILY blood pressure #90 tabs 01/14/22 [Rx Last Taken Unknown] azelastine-fluticasone 137 mcg-50 mcg/spray nasal spray 1 spray intranasal BID #23 grams 01/26/22 [Rx Last Taken Unknown] underpads (Bed Underpads) #40 ea 02/16/22 [Rx Last Taken Unknown] celecoxib 200 mg capsule 200 mg PO DAILY #60 caps 06/28/22 [Rx Last Taken Unknown] vibegron 75 mg tablet (Gemtesa) 75 mg PO DAILY 07/14/22 [History Last Taken Unknown] esomeprazole magnesium 20 mg capsule,delayed release 20 mg PO DAILY gerd #90 caps 08/12/22 [Rx Last Taken Unknown] lisinopril 20 mg-hydrochlorothiazide 25 mg tablet 1 tab PO DAILY blood pressure #90 tabs 08/12/22 [Rx Last Taken Unknown] nebulizer inhalation 3XD 12/08/22 [History Last Taken Unknown] lidocaine 5 % patch and menthol 6 % gel topical kit See Rx Instructions topical .COMPLEX #1 ea 02/11/23 [Rx Last Taken Unknown] budesonide 160 mcg-glycopyr 9 mcg-formot 4.8 mcg/actuation HFA inhaler (Breztri Aerosphere) 2 inh inhalation BID 03/24/23 [History Last Taken Unknown] prednisone 10 mg tablet 10 mg PO DAILY 03/24/23 [History Last Taken Unknown] buprenorphine 5 mcg/hour weekly transdermal patch 1 patch transdermal QWEEK 05/19/23 [History Last Taken Unknown] cholecalciferol (vitamin D3) 1,250 mcg (50,000 unit) capsule 1,250 mcg PO QWEEK #12 caps 05/19/23 [Rx Last Taken Unknown] levothyroxine 50 mcg tablet 50 mcg PO DAILY #30 tabs 05/19/23 [Rx Last Taken Unknown] nitrofurantoin monohydrate/macrocrystals 100 mg capsule (Macrobid) 100 mg PO Q12H 5 days #10 caps 06/05/23 [Rx Last Taken Unknown] ondansetron 4 mg disintegrating tablet 4 mg PO Q8H PRN PRN Nausea #30 tabs 06/05/23 [Rx Last Taken Unknown] promethazine 25 mg tablet 25 mg PO TID PRN nausea and vomiting #14 tabs 06/05/23 [Rx Last Taken Unknown] ondansetron 4 mg disintegrating tablet 4 mg PO Q8H PRN PRN Nausea #10 tabs 07/08/23 [Rx Last Taken Unknown] prednisone 20 mg tablet 60 mg (3 x 20 mg) PO DAILY #15 TABLETS 07/08/23 [Rx Last Taken Unknown] sucralfate 1 gram tablet (Carafate) 1 g PO QACHS #30 tabs 07/11/23 [Rx Last Taken Unknown] food supplemt, lactose-reduced 0.04 gram-1.05 kcal/mL oral liquid (Ensure Original) See Rx Instructions PO .COMPLEX #5,688 mL 07/25/23 [Rx Last Taken Unknown] cephalexin 500 mg capsule 500 mg PO Q6 #12 CAPSULES 07/29/23 [Rx Last Taken Unknown] Allergy/AdvReac Type Severity Reaction Status Date / Time prednisone AdvReac Other Verified 07/29/23 10:08 Sulfa (Sulfonamide AdvReac Nausea Verified 07/29/23 10:08 Antibiotics) Family History Mother Diabetes Hypertension Breast cancer Father Heart disease Hypertension Myocardial infarction, Onset Age: 46 Surgical History History of History of D&C History of hand surgery History of hysterectomy Social History household members: none Smoking Status: Former smoker quit date: 01/03/21 Tobacco: How many years used: 36 alcohol intake: never substance use type: does not use what type of physical activity do you participate in: none ROS ROS ED Constitutional Constitutional ED: Reports sweats Eyes Eyes: Reports blurry vision ENT ENT ED: Denies rhinorrhea or sore throat Cardiovascular Cardiovascular: Denies chest pain or palpitations Respiratory/Chest Respiratory/Chest: Reports dyspnea; Denies cough Gastrointestinal Gastrointestinal: Reports abdominal pain, nausea and vomiting Genitourinary Genitourinary ED: Denies dysuria or hematuria Musculoskeletal Musculoskeletal: Reports neck pain; Denies back pain Integumentary Denies abscess or rash Neurologic Neurologic: Reports headache(s); Denies weakness Allergic/Immunologic Allergic/Immunologic ED: Denies mouth swelling or urticaria EXAM Physical Exam Const Vital Signs: 07/29/23 10:04 07/29/23 10:10 07/29/23 10:25 Temperature 97.8 F 97.8 F Temperature Source Oral Oral Pulse Rate 82 79 81 Respiratory Rate 17 14 15 Blood Pressure 91/61 91/61 102/69 Blood Pressure Mean 71 71 80 Pulse Ox 94 94 95 Oxygen Delivery Method Nasal Cannula Nasal Cannula Room Air Oxygen Flow Rate (L/min) 3 3 07/29/23 12:02 07/29/23 14:00 Temperature Temperature Source Pulse Rate 78 82 Respiratory Rate 17 16 Blood Pressure 129/68 H 116/85 H Blood Pressure Mean 88 95 Pulse Ox 96 96 Oxygen Delivery Method Nasal Cannula Nasal Cannula Oxygen Flow Rate (L/min) 2 2 Positive well nourished, well developed and obese General Appearance ED: well developed and NAD Nutritional Appearance: obese HEENT Reports moist mucous membranes Neck supple and no JVD Resp normal respiratory effort and clear to auscultation bilaterally Cardio regular rate and regular rhythm GI GI Narrative: Abdomen was somewhat distended. There is a ventral hernia noted. There is tenderness over this area. There is also diffuse tenderness. There is no rebound or guarding noted. Palpation: soft and tender epigastric, LLQ, RLQ, LUQ, RUQ, periumbilical and suprapubic; Negative for rebound tenderness present Extremity full ROM Neuro CN's II-XII intact bilaterally, moves all extremities and no sensory deficits noted Sensorium / Orientation: alert Motor Exam: strength 5/5 throughout Psych mental status grossly normal and thought process normal MDM MDM MDM Narrative Medical decision making narrative: Differential diagnosis includes cholecystitis, cholelithiasis, bowel obstruction, perforation, gastroenteritis, electrolyte abnormality, acute kidney injury, hepatic encephalopathy, intracranial bleeding, pancreatitis, cardiac dysrhythmia, and cardiac ischemia. EKG will be obtained to assess for cardiac dysrhythmia and cardiac ischemia. Acute abdominal x-rays will be obtained to assess for bowel obstruction and perforation. CBC will be obtained to assess for leukocytosis and anemia. Comprehensive metabolic profile will be obtained to assess for hepatic function, renal function, and electrolyte abnormality. Lipase will be obtained to assess for pancreatitis. Urinalysis will be obtained to assess for urinary tract infection and hematuria. High-sensitivity troponin will be obtained to assess for cardiac ischemia. CT scan of the brain will be obtained to assess for intracranial bleeding. Lab Data Attestation: I reviewed the patient's lab results. Lab results narrative: CBC was reviewed and was within normal limits. Comprehensive metabolic profile was reviewed and was essentially within normal limits. High-sensitivity troponin was reviewed and was normal at 10. Lipase was reviewed and was normal at 79. Urinalysis was reviewed. There are positive nitrites. Leukocyte esterase was 500. There are 25-50 white blood cells. There is 1+ bacteria. Labs: Laboratory Results - last 24 hr 07/29/23 07/29/23 10:57 11:59 WBC 6.8 RBC 4.57 Hgb 11.9 L Hct 38.1 MCV 83.4 MCH 26.0 L MCHC 31.2 L RDW Std Deviation 48.9 H RDW Coeff of Ronny 16.5 H Plt Count 278 MPV 8.6 Immature Gran % (Auto) 0.900 Neut % (Auto) 70.3 H Lymph % (Auto) 18.6 L Frio % (Auto) 6.7 Eos % (Auto) 3.1 Baso % (Auto) 0.4 Absolute Neuts (auto) 4.8 Absolute Lymphs (auto) 1.27 Nucleated RBC % 0 Sodium 140 Potassium 4.1 Chloride 107 Carbon Dioxide 25.0 Anion Gap 8 BUN 17 Creatinine 1.11 H Est GFR (MDRD) Af Amer 63 Est GFR (MDRD) Non-Af 52 L BUN/Creatinine Ratio 15.3 Glucose 158 H Calcium 9.4 Total Bilirubin 0.20 AST 33 ALT 46 Alkaline Phosphatase 118 H Troponin I High Sens 10 Total Protein 6.7 Albumin 2.9 L Globulin 3.8 Albumin/Globulin Ratio 0.8 L Lipase 79 H Urine Color Yellow Urine Clarity Sl. Cloudy Urine pH 5.0 Ur Specific [place] 1.020 Urine Protein 30 H Urine Glucose (UA) Normal Urine Ketones Negative Urine Occult Blood 25 H Urine Nitrite Positive H Urine Bilirubin Negative Urine Urobilinogen Normal Ur Leukocyte Esterase 500 H Urine RBC 0 SEEN Urine WBC 25-50 SEEN Ur Squamous Epith Cells 0 SEEN Urine Bacteria 1+ Urine Mucus 0 SEEN Radiography Diagnostic Testing: Clinical Impression(s) from Imaging Studies Acute Abdomen Series 07/29/23 11:25 IMPRESSION: Moderate amount of fecal material is seen in the colon. Electronically Signed: Wilfred De La Cruz MD at 12:07 EST , Acute abdominal x-rays were obtained. There are 6 views. On my independent interpretation, there is no evidence of obstruction or perforation. There is moderate amount of stool throughout the colon. Radiologist also interpreted the x-rays and agrees. EKG Initial EKG: Attestation: I personally reviewed and interpreted this EKG as follows: Interpretation: Sinus Rhythm (84) and No Acute Injury Pattern Comments: EKG was obtained. On my independent interpretation, it showed a normal sinus rhythm with a rate of 84. [place] interval, QRS interval, and QTc intervals were all normal. [place] was normal. There are no acute ST or T wave changes. Prior EKG tracings: available for review Prior: Unchanged (06/25/2023) Additional Tests and Interventions Additional Tests or Interventions: Urine culture was ordered. Treatment and Re-Evaluation :: Patient was given IV fluids, morphine, and Zofran. Patient requested Tylenol for headache. This was given. Patient was advised of her findings. Patient was given a soapsuds enema here. Patient had good results with this. Patient was feeling somewhat better on reevaluation. Patient was given a dose of Keflex here. Patient was given a prescription for Keflex. Patient was instructed to follow-up with her primary care physician in 3 to 5 days. Patient understood and was agreeable with the plan. All questions were answered. Discharge Plan Triage Chief Complaint: Abd Pain ED Provider: Kevin Gates Dx/Rx/DC Orders Clinical Impression: Urinary tract infection, Abdominal pain, Constipation Instructions: ED Constipation (Adult), ED Cystitis Female Adult Prescriptions: New cephalexin [cephalexin] 500 mg capsule 500 mg PO Q6 Qty: 12 0RF No Action azelastine-fluticasone 137-50 mcg/spray spray,non-aerosol 1 spray intranasal BID Qty: 23 6RF Rx Instructions: administer into each nostril Breztri Aerosphere 160-9-4.8 mcg/actuation HFA aerosol inhaler 2 inh inhalation BID nebulizer inhalation 3XD Gemtesa 75 mg tablet 75 mg PO DAILY buprenorphine 5 mcg/hour patch weekly 1 patch transdermal QWEEK cholecalciferol (vitamin D3) 1,250 mcg (50,000 unit) capsule 1,250 mcg PO QWEEK Qty: 12 3RF prazosin 1 MG capsule 1 mg PO DAILY sertraline 100 mg tablet 200 mg PO DAILY prazosin 2 mg capsule 2 mg PO QHS aripiprazole 20 mg tablet 20 mg PO DAILY bupropion HCl 150 mg tablet extended release 24 hr 300 mg PO DAILY prednisone 10 mg tablet 10 mg PO DAILY Breztri Aerosphere 160-9-4.8 mcg/actuation HFA aerosol inhaler 2 inh inhalation BID lidocaine-menthol 5-6 % kit See Rx Instructions .ROUTE .COMPLEX Qty: 1 0RF Rx Instructions: apply LIDIOCAINE PATCH once a day/may leave on for up to 12 hrs; apply MENTHOL GEL 1 - 4 times/day as needed for pain. nitrofurantoin monohyd/m-cryst [Macrobid] 100 mg capsule 100 mg PO Q12H 5 Days Qty: 10 0RF Rx Instructions: must administer with a meal/food promethazine 25 mg tablet 25 mg PO TID PRN (Reason: nausea and vomiting) Qty: 14 0RF prednisone 20 mg tablet 60 mg PO DAILY Qty: 15 0RF ondansetron [ondansetron] 4 mg tablet,disintegrating 4 mg PO Q8H PRN PRN (Reason: Nausea) Qty: 10 0RF (DME) blood pressure monitor [Blood Pressure Kit] Kit See Rx Instructions .ROUTE .MEDSUPPLY Qty: 1 0RF Rx Instructions: Check daily and as needed (DME) Pulse oximeter See Rx Instructions .Route .MEDSUPPLY Qty: 1 0RF Rx Instructions: Monitor daily or as needed (DME) Ultra-Light Rollator Misc See Rx Instructions .ROUTE .MEDSUPPLY Qty: 1 0RF Rx Instructions: As directed amlodipine 5 mg tablet 5 mg PO DAILY Qty: 90 3RF (DME) underpads [Bed Underpads] Pad See Rx Instructions .Route Qty: 40 6RF Rx Instructions: R32. celecoxib 200 mg capsule 200 mg PO DAILY Qty: 60 0RF esomeprazole magnesium 20 mg capsule,delayed release(DR/EC) 20 mg PO DAILY Qty: 90 3RF lisinopril-hydrochlorothiazide 20-25 mg tablet 1 tab PO DAILY Qty: 90 3RF levothyroxine 50 mcg tablet 50 mcg PO DAILY Qty: 30 2RF ondansetron 4 mg tablet,disintegrating 4 mg PO Q8H PRN PRN (Reason: Nausea) Qty: 30 0RF sucralfate [Carafate] 1 gram tablet 1 g PO QACHS Qty: 30 0RF Ensure Original 0.04-1.05 gram-kcal/mL liquid See Rx Instructions PO .COMPLEX Qty: 5688 5RF Rx Instructions: 1 can twice daily orally; Primary Care Provider: Rosa Bragg Referrals: Rosa Bragg MD [Primary Care Provider] - 3-5 Days Activity Restrictions/Additional Instructions: You may use kafu-gah-yelulum laxatives as needed for constipation. Disposition Disposition: Home, Self Care
--- NOTE | 2023-07-29 10:46 | EKG12_ITS ---
Test Reason : ABD PAIN Blood Pressure : / mmHG Vent. Rate : 084 BPM Atrial Rate : 084 BPM P-R Int : 146 ms QRS Dur : 076 ms QT Int : 382 ms P-R-T Axes : 051 025 061 degrees QTc Int : 451 ms Normal sinus rhythm Normal ECG Confirmed by DUKE POWERS, ROBE ([id number]), digital editor NOAH CHAPA ([id number]) on 08/01/2023 10:15:53 AM Referred By: Confirmed By:ROBE WALL MD
[2023-07-29] MEDS: Ondansetron 4 MG/2 ML Vial IV (11:07)
[2023-07-29] MEDS: 0.9% Normal Saline (1000mL) 1,000 ML 1000 ML IV (11:07)
[2023-07-29] MEDS: Morphine 4 MG/ML Syringe IV (11:07)
[2023-07-29 11:08] LABS: Absolute Lymphocyte Count 1.27 X10^3/uL (0.83-4.51); Absolute Neutrophil Count 4.8 X10^3/uL (2.0-7.7); Basophil# 0.03 X10^3/uL; Basophil% 0.4 % (0-1); Eosinophil# 0.21 X10^3/uL; Eosinophils% 3.1 % (0-5); Hematocrit 38.1 % (37-47); Hemoglobin 11.9 g/dL (12.0-15.0); Lymphocyte # 1.27 X10^3/ul (0.83-4.51); Lymphocyte % 18.6 % (19-41); Mean Corp Hgb Conc 31.2 g/dL (32-36); Mean Corpuscular Volume 83.4 fL (81-99); Mean Platelet Vol. 8.6 fl (6.2-12.0); Monocyte# 0.46 X10^3/uL; Monocyte% 6.7 % (0-10); NRBC Flagged by Analyzer 0 % (0-5); Neutrophil # 4.81 X10^3/uL (2.7-7.7); Neutrophil % 70.3 % (47-70); Platelet Count 278 K/mm3 (150-450); RBC Distribution Width CV 16.5 % (11.6-14.6); RBC Distribution Width SD 48.9 fl (35.1-43.9); Red Blood Count 4.57 M/mm3 (4.2-5.4); White Blood Count 6.8 K/mm3 (4.4-11.0)
--- NOTE | 2023-07-29 11:25 | RAD_ITS ---
STUDY: X-RAY - ACUTE ABDOMINAL SERIES REASON FOR EXAM: Female, 67 years old. Abdominal pain. History of gallstones. TECHNIQUE: Single view of the chest. Supine, and decubitus view(s) of the abdomen were obtained. COMPARISON: Comparison is made with prior study July 08, 2023. FINDINGS: EKG electrodes are seen. Stable mild increased markings at the lung bases suggest lumbar mild basilar scarring. Normal size heart. Normal mediastinum and magui. Normal visualized pulmonary arteries. There is atherosclerotic calcification of the aortic arch with tortuosity. There is a moderate amount of colonic fecal material. The soft tissue structures of the abdomen and pelvis are unremarkable. There are diffuse degenerative changes of the visualized lumbar spine. The electrode is seen overlying the right side of the bladder. RAD/Acute Abdomen Inc Chest IMPRESSION: Moderate amount of fecal material is seen in the colon. Electronically Signed: Wilfred De La Cruz MD at 12:07 EST ,
[2023-07-29 11:30] LABS: ALB/GLOB Ratio 0.8 RATIO (0.9-2.4); AST(SGOT) 33 U/L (15-37); Alanine Aminotransfer ALT/SGPT 46 U/L (13-56); Albumin, Serum 2.9 g/dL (3.2-5.0); Alkaline Phosphatase 118 U/L (45-117); Anion Gap 8 (5-15); BUN 17 mg/dL (7-18); BUN/Creat Ratio 15.3 RATIO (10-20); Calcium,Total 9.4 mg/dL (8.5-10.1); Chloride 107 mmol/L (98-107); Creatinine, Serum 1.11 mg/dL (0.55-1.02); EST Glomerular Filtration Rate 52 mL/min (>60); Est Glom Filt Rate - Afr Amer 63 mL/min (>60); Globulin 3.8 g/dL (2.2-4.2); Glucose 158 mg/dL (74-106); Lipase 79 U/L (13-75); Potassium 4.1 mmol/L (3.5-5.1); Protein, Total 6.7 g/dL (6.4-8.2); Sodium Level 140 mmol/L (136-145); Troponin-I HS 10 pg/mL (3.0-54.0)
[2023-07-29 12:02] VITALS: BP 129/68; PULSE 78; RESP 17; O2SAT 96
[2023-07-29 12:05] LABS: Mucous, Urine 0 SEEN /hpf (<or=2+); Red Blood Cells-Urine 0 SEEN /hpf (0-5); Squamous Epithelial Cells - UA 0 SEEN /hpf (5-10)
[2023-07-29 12:10] LABS: Color, Urine Yellow (Yellow); Glucose, Dipstick Normal (Normal); Ketone-Dipstick Negative (Negative); Leukocyte Esterase-Dipstick 500 /ul (Negative); Nitrite-Dipstick Positive (Negative); Occult Blood-Urine 25 /ul (Negative); Protein-Dipstick 30 mg/dl (Negative); Urine Bilirubin Dipstick Negative (Negative); Urine Clarity Sl. Cloudy (Clear); Urine Urobilinogen Normal (Normal)
[2023-07-29 12:19] LABS: Bacteria 1+ /hpf (None Seen); White Blood Cells 25-50 SEEN /hpf (0-5)
[2023-07-29] MEDS: Acetaminophen 500 MG Tablet 1000 MG PO (12:26)
[2023-07-29 14:00] VITALS: BP 116/85; PULSE 82; RESP 16; O2SAT 96
[2023-07-29] MEDS: Cephalexin 500 MG Capsule PO (15:21)
[2023-07-29 15:23] VITALS: BP 106/72; PULSE 80; RESP 18; O2SAT 96
== END 2023-07-29 15:33 | disposition home or self-care (01) ==
PROVIDERS: Emergency Provider Emergency Medicine; PCP Internal Medicine; Visit Provider Emergency Medicine
DX: N39.0 Urinary tract infection, site not specified (principal); J44.9 Chronic obstructive pulmonary disease, unspecified; K59.00 Constipation, unspecified; R11.2 Nausea with vomiting, unspecified; M54.2 Cervicalgia; I10 Essential (primary) hypertension; R06.00 Dyspnea, unspecified; K21.9 Gastro-esophageal reflux disease without esophagitis; R10.9 Unspecified abdominal pain; Z79.899 Other long term (current) drug therapy; Z87.891 Personal history of nicotine dependence
CPT/HCPCS: 74022; 80053; 81001; 83690; 84484; 85025; 93005; 96361; 96374; 96375; 99285; J2405

== ENCOUNTER 2023-09-06 10:22 | Emergency (ER) | payer MEDICARE, MEDICAID, SELFPAY ==
[2023-04-18 07:37] VITALS: BMI 41.0
[2023-09-06] VITALS (18 sets, daily range): BP systolic 135–147; BP diastolic 67–78; PULSE 68–75; RESP 7–17; TEMP 36.2; O2SAT 93–97; BMI 38.7; BMI 39.5
--- NOTE | 2023-09-06 10:36 | CT_ITS ---
INDICATION: Abdominal pain. EXAMINATION: CT ABDOMEN AND PELVIS WITHOUT CONTRAST - CT Abdomen And Pelvis W/O Contrast Injection TECHNIQUE: Helically acquired images were obtained of the abdomen and pelvis without oral or IV contrast. A radiation dose optimization technique was used for this scan. IV Contrast dosage and agent: None. Oral contrast: None. RADIATION DOSAGE (If Supplied By Facility): CTDIvol = ( 21.86 ) mGy, DLP = ( 983.00 ) mGycm COMPARISON: Prior study dated: 06/01/2023. FINDINGS: LOWER CHEST: Atelectatic changes or scarring in the lower lungs. No cardiomegaly or pericardial effusion. LIVER: Hepatic steatosis. No focal mass. GALLBLADDER AND BILIARY TREE: No calcified gallstones. No gallbladder distension or wall edema. No intra- or extrahepatic biliary ductal dilation. PANCREAS: No focal cystic or solid mass. SPLEEN: Normal size without focal cystic or solid mass. ADRENAL GLANDS: No nodules. KIDNEYS AND URETERS: Normal renal size and position. 4 mm nonobstructing stone in the lower pole of the left kidney. No evidence of hydronephrosis. PERITONEUM: No ascites or free air. No other fluid collection. BOWEL: No evidence of acute appendicitis. No stomach or bowel distension. No focal inflammatory change. LYMPH NODES: No enlarged mesenteric or retroperitoneal lymph nodes. VESSELS: Atherosclerotic calcifications of the abdominal aorta with tortuosity without evidence of aneurysm. URINARY BLADDER: Unremarkable. REPRODUCTIVE ORGANS: No pelvic masses. ABDOMINAL WALL: Ventral hernia containing part of the transverse colon without evidence of obstruction at this time with the neck measuring about 6 cm unchanged. BONES: Degenerative changes of the spine. CT/Abdomen/Pelvis without Cont IMPRESSION: 1. No focal acute inflammatory process. 2. Small nonobstructing stone in the left kidney without evidence of hydronephrosis. 3. Moderate size ventral hernia containing part of the transverse colon without evidence of obstruction at this time. 4. Hepatic steatosis. Electronically Signed: Luciano Corral MD at 11:48 EST ,
[2023-09-06] MEDS: Morphine 4 MG/ML Syringe IV ×3 (10:53→14:52)
[2023-09-06] MEDS: 0.9% Normal Saline (1000mL) 1,000 ML 150 ML IV (10:53)
[2023-09-06] MEDS: Ondansetron 4 MG/2 ML Vial IV (10:53)
[2023-09-06 11:00] LABS: Absolute Lymphocyte Count 1.23 X10^3/uL (0.83-4.51); Absolute Neutrophil Count 8.3 X10^3/uL (2.0-7.7); Basophil# 0.05 X10^3/uL; Basophil% 0.5 % (0-1); Eosinophil# 0.37 X10^3/uL; Eosinophils% 3.5 % (0-5); Hematocrit 42.6 % (37-47); Hemoglobin 13.7 g/dL (12.0-15.0); Lymphocyte # 1.23 X10^3/ul (0.83-4.51); Lymphocyte % 11.5 % (19-41); Mean Corp Hgb Conc 32.2 g/dL (32-36); Mean Corpuscular Hgb 27.1 pg (27.0-32.0); Mean Corpuscular Volume 84.2 fL (81-99); Mean Platelet Vol. 8.6 fl (6.2-12.0); Monocyte# 0.66 X10^3/uL; Monocyte% 6.2 % (0-10); NRBC Flagged by Analyzer 0 % (0-5); Neutrophil # 8.34 X10^3/uL (2.7-7.7); Neutrophil % 77.6 % (47-70); Platelet Count 323 K/mm3 (150-450); RBC Distribution Width CV 16.3 % (11.6-14.6); RBC Distribution Width SD 50.1 fl (35.1-43.9); Red Blood Count 5.06 M/mm3 (4.2-5.4); White Blood Count 10.7 K/mm3 (4.4-11.0)
[2023-09-06 11:11] LABS: International Normalized Ratio 0.9; Prothrombin Time (Protime)PT. 12.3 SECONDS (11.7-14.9)
[2023-09-06 11:12] LABS: Partial Thromboplast Time 29.2 Seconds (24.1-36.2)
--- NOTE | 2023-09-06 11:37 | ED.VIS.GI ---
HPI HPI - GI History of Present Illness Chief Complaint: Abd Pain Informant: patient Narrative Narrative: Presents by EMS from home worsening abdominal pain since yesterday. Known ventral hernia. History of COPD on chronic oxygen. No anticoagulants. She has seen local surgeon Dr. De Souza she states 2 months ago due to her COPD history referred up to [facility]. She states she saw Dr. Rivas a month ago, reported that she would not survive surgery. History of x 2 in the past. No attempted ventral hernia repair in the past. Denies vomiting. Prior similar symptoms: Yes PFSH PFSH Medical History Anxiety and depression Arthritis BMI 40.0-44.9, adult COPD (chronic obstructive pulmonary disease) Cough due to bronchospasm Degenerative lumbar spinal stenosis Dyspnea on exertion Encounter for screening for malignant neoplasm of lung in current smoker with 30 pack year history or greater Gallstones GERD (gastroesophageal reflux disease) Hypertension Kidney stones Oral thrush PTSD (post-traumatic stress disorder) Spinal stenosis Tobacco use disorder, continuous Home Medications prazosin 1 mg capsule 1 mg PO DAILY blood pressure 09/29/17 [History Last Taken 01/08/21] sertraline 100 mg tablet 200 mg PO DAILY depression 10/23/20 [History Last Taken 01/08/21] aripiprazole 20 mg tablet 20 mg PO DAILY mood 01/06/21 [History Last Taken 01/08/21] prazosin 2 mg capsule 2 mg PO QHS blood pressure 01/06/21 [History Last Taken 01/08/21] Pulse oximeter #1 ea 02/05/21 [Rx Last Taken Unknown] blood pressure monitor (Blood Pressure Kit) #1 ea 02/05/21 [Rx Last Taken Unknown] walker (Ultra-Light Rollator misc) #1 ea 03/24/21 [Rx Last Taken Unknown] bupropion HCl 150 mg 24 hr tablet, extended release 300 mg PO DAILY mood 05/05/21 [History Last Taken Unknown] budesonide 160 mcg-glycopyr 9 mcg-formot 4.8 mcg/actuation HFA inhaler (Breztri Aerosphere) 2 inh inhalation BID 12/07/21 [History Last Taken Unknown] amlodipine 5 mg tablet 5 mg PO DAILY blood pressure #90 tabs 01/14/22 [Rx Last Taken Unknown] azelastine 137 mcg-fluticasone 50 mcg/spray nasal spray 1 spray intranasal BID #23 grams 01/26/22 [Rx Last Taken Unknown] underpads (Bed Underpads) #40 ea 02/16/22 [Rx Last Taken Unknown] celecoxib 200 mg capsule 200 mg PO DAILY #60 caps 06/28/22 [Rx Last Taken Unknown] vibegron 75 mg tablet (Gemtesa) 75 mg PO DAILY 07/14/22 [History Last Taken Unknown] esomeprazole magnesium 20 mg capsule,delayed release 20 mg PO DAILY gerd #90 caps 08/12/22 [Rx Last Taken Unknown] lisinopril 20 mg-hydrochlorothiazide 25 mg tablet 1 tab PO DAILY blood pressure #90 tabs 08/12/22 [Rx Last Taken Unknown] nebulizer inhalation 3XD 12/08/22 [History Last Taken Unknown] lidocaine 5 % patch and menthol 6 % gel topical kit See Rx Instructions topical .COMPLEX #1 ea 02/11/23 [Rx Last Taken Unknown] budesonide 160 mcg-glycopyr 9 mcg-formot 4.8 mcg/actuation HFA inhaler (Breztri Aerosphere) 2 inh inhalation BID 03/24/23 [History Last Taken Unknown] prednisone 10 mg tablet 10 mg PO DAILY 03/24/23 [History Last Taken Unknown] buprenorphine 5 mcg/hour weekly transdermal patch 1 patch transdermal QWEEK 05/19/23 [History Last Taken Unknown] cholecalciferol (vitamin D3) 1,250 mcg (50,000 unit) capsule 1,250 mcg PO QWEEK #12 caps 05/19/23 [Rx Last Taken Unknown] nitrofurantoin monohydrate/macrocrystals 100 mg capsule (Macrobid) 100 mg PO Q12H 5 days #10 caps 06/05/23 [Rx Last Taken Unknown] promethazine 25 mg tablet 25 mg PO TID PRN nausea and vomiting #14 tabs 06/05/23 [Rx Last Taken Unknown] ondansetron 4 mg disintegrating tablet 4 mg PO Q8H PRN PRN Nausea #10 tabs 07/08/23 [Rx Last Taken Unknown] prednisone 20 mg tablet 60 mg (3 x 20 mg) PO DAILY #15 TABLETS 07/08/23 [Rx Last Taken Unknown] sucralfate 1 gram tablet (Carafate) 1 g PO QACHS #30 tabs 07/11/23 [Rx Last Taken Unknown] food supplemt, lactose-reduced 0.04 gram-1.05 kcal/mL oral liquid (Ensure Original) See Rx Instructions PO .COMPLEX #5,688 mL 07/25/23 [Rx Last Taken Unknown] cephalexin 500 mg capsule 500 mg PO Q6 #12 CAPSULES 07/29/23 [Rx Last Taken Unknown] levothyroxine 50 mcg tablet 50 mcg PO DAILY #30 tabs 08/09/23 [Rx Last Taken Unknown] ondansetron 4 mg disintegrating tablet 4 mg PO Q8H PRN PRN Nausea #30 tabs 08/09/23 [Rx Last Taken Unknown] Allergy/AdvReac Type Severity Reaction Status Date / Time prednisone AdvReac Other Verified 07/29/23 10:08 Sulfa (Sulfonamide AdvReac Nausea Verified 07/29/23 10:08 Antibiotics) Family History Mother Diabetes Hypertension Breast cancer Father Heart disease Hypertension Myocardial infarction, Onset Age: 46 Surgical History History of History of D&C History of hand surgery History of hysterectomy Social History household members: none Smoking Status: Former smoker quit date: 01/03/21 Tobacco: How many years used: 36 alcohol intake: never substance use type: does not use what type of physical activity do you participate in: none EXAM Physical Exam Const Vital Signs: 09/06/23 10:23 09/06/23 10:28 09/06/23 13:20 Temperature 97.2 F L 97.2 F L Temperature Source Temporal Temporal Pulse Rate 74 75 70 Respiratory Rate 17 14 9 L Blood Pressure 142/78 H 142/78 H Blood Pressure Mean 99 99 Pulse Ox 94 95 96 Oxygen Delivery Method Nasal Cannula Venturi Mask Oxygen Flow Rate (L/min) 3 3 MDM MDM MDM Narrative Medical decision making narrative: Interventions / MDM: Differential diagnosis: Ventral hernia, strangulated hernia, incarcerated hernia Diagnosis considered but do not suspect: N/A My EKG interpretation: N/A Imaging independently reviewed and interpreted by myself: CT abdomen pelvis without contrast: Ventral hernia Containing transverse colon without evidence obstruction, neck is measuring 6 cm unchanged. No stranding noted. External documents reviewed: N/A Test considered but not ordered:N/A ED course: Patient pain around ventral hernia site. No vomiting. IV established abdominal labs, lactic acid, CT scan. IV morphine for pain control. Labs are all stable including lactic acid which was 0.8. White count 10.7. Patient continued pain requiring additional morphine. I did discuss with on-call surgeon who knows her, states with reported high mortality risk with surgery, he recommended transfer to a tertiary center. Initially discussed with [facility] for which she seen as a referral, they have no current availabilities. 1430: I spoke with [facility] transfer, on-call surgeon Dr. Valencia, discussed patient's history and findings. He accepts the patient to the ER for surgery evaluation for further treatment management. Patient required additional morphine that was given. Vitals remained stable. Discussed transfer to [facility] with patient and family. Will await transport. Re-evaluation: Guarded Disposition discussed with patient/family/significant other: Patient Case discussed with consulting clinician: General surgery, Dr. De Souza, [facility] surgery, Dr. Valencia This note was generated with [employer] dictation software. It may contain incorrect words, spelling, and punctuation that were not noted in checking the note before signing. Lab Data Attestation: I reviewed the patient's lab results. Labs: Laboratory Results - last 24 hr 09/06/23 10:30 WBC 10.7 RBC 5.06 Hgb 13.7 Hct 42.6 MCV 84.2 MCH 27.1 MCHC 32.2 RDW Std Deviation 50.1 H RDW Coeff of Ronny 16.3 H Plt Count 323 MPV 8.6 Immature Gran % (Auto) 0.700 Neut % (Auto) 77.6 H Lymph % (Auto) 11.5 L Montague % (Auto) 6.2 Eos % (Auto) 3.5 Baso % (Auto) 0.5 Absolute Neuts (auto) 8.3 H Absolute Lymphs (auto) 1.23 Nucleated RBC % 0 PT 12.3 INR 0.9 APTT 29.2 Sodium 132 L Potassium 5.1 Chloride 99 Carbon Dioxide 30.0 Anion Gap 3 L BUN 33 H Creatinine 0.97 Estim Creat Clear Calc 43.29 Est GFR (MDRD) Af Amer 73 Est GFR (MDRD) Non-Af 60 BUN/Creatinine Ratio 34.0 H Glucose 118 H Lactic Acid 0.8 Calcium 10.7 H Total Bilirubin 0.30 AST 45 H ALT 60 H Alkaline Phosphatase 131 H Total Protein 7.9 Albumin 3.5 Globulin 4.4 H Albumin/Globulin Ratio 0.8 L Lipase 69 Radiography Diagnostic Testing: Clinical Impression(s) from Imaging Studies Abdomen/Pelvis CT 09/06/23 10:36 IMPRESSION: 1. No focal acute inflammatory process. 2. Small nonobstructing stone in the left kidney without evidence of hydronephrosis. 3. Moderate size ventral hernia containing part of the transverse colon without evidence of obstruction at this time. 4. Hepatic steatosis. Electronically Signed: Luciano Corral MD at 11:48 EST , Discharge Plan Triage Chief Complaint: Abd Pain ED Provider: Juan Daniel Woo Dx/Rx/DC Orders Clinical Impression: Strangulated hernia of abdominal wall, Ventral hernia without obstruction or gangrene Prescriptions: No Action azelastine-fluticasone 137-50 mcg/spray spray,non-aerosol 1 spray intranasal BID Qty: 23 6RF Rx Instructions: administer into each nostril Breztri Aerosphere 160-9-4.8 mcg/actuation HFA aerosol inhaler 2 inh inhalation BID nebulizer inhalation 3XD Gemtesa 75 mg tablet 75 mg PO DAILY buprenorphine 5 mcg/hour patch weekly 1 patch transdermal QWEEK cholecalciferol (vitamin D3) 1,250 mcg (50,000 unit) capsule 1,250 mcg PO QWEEK Qty: 12 3RF prazosin 1 MG capsule 1 mg PO DAILY sertraline 100 mg tablet 200 mg PO DAILY prazosin 2 mg capsule 2 mg PO QHS aripiprazole 20 mg tablet 20 mg PO DAILY bupropion HCl 150 mg tablet extended release 24 hr 300 mg PO DAILY prednisone 10 mg tablet 10 mg PO DAILY Breztri Aerosphere 160-9-4.8 mcg/actuation HFA aerosol inhaler 2 inh inhalation BID lidocaine-menthol 5-6 % kit See Rx Instructions .ROUTE .COMPLEX Qty: 1 0RF Rx Instructions: apply LIDIOCAINE PATCH once a day/may leave on for up to 12 hrs; apply MENTHOL GEL 1 - 4 times/day as needed for pain. nitrofurantoin monohyd/m-cryst [Macrobid] 100 mg capsule 100 mg PO Q12H 5 Days Qty: 10 0RF Rx Instructions: must administer with a meal/food promethazine 25 mg tablet 25 mg PO TID PRN (Reason: nausea and vomiting) Qty: 14 0RF prednisone 20 mg tablet 60 mg PO DAILY Qty: 15 0RF ondansetron [ondansetron] 4 mg tablet,disintegrating 4 mg PO Q8H PRN PRN (Reason: Nausea) Qty: 10 0RF cephalexin [cephalexin] 500 mg capsule 500 mg PO Q6 Qty: 12 0RF (DME) blood pressure monitor [Blood Pressure Kit] Kit See Rx Instructions .ROUTE .MEDSUPPLY Qty: 1 0RF Rx Instructions: Check daily and as needed (DME) Pulse oximeter See Rx Instructions .Route .MEDSUPPLY Qty: 1 0RF Rx Instructions: Monitor daily or as needed (DME) Ultra-Light Rollator Misc See Rx Instructions .ROUTE .MEDSUPPLY Qty: 1 0RF Rx Instructions: As directed amlodipine 5 mg tablet 5 mg PO DAILY Qty: 90 3RF (DME) underpads [Bed Underpads] Pad See Rx Instructions .Route Qty: 40 6RF Rx Instructions: R32. celecoxib 200 mg capsule 200 mg PO DAILY Qty: 60 0RF esomeprazole magnesium 20 mg capsule,delayed release(DR/EC) 20 mg PO DAILY Qty: 90 3RF lisinopril-hydrochlorothiazide 20-25 mg tablet 1 tab PO DAILY Qty: 90 3RF sucralfate [Carafate] 1 gram tablet 1 g PO QACHS Qty: 30 0RF Ensure Original 0.04-1.05 gram-kcal/mL liquid See Rx Instructions PO .COMPLEX Qty: 5688 5RF Rx Instructions: 1 can twice daily orally; levothyroxine 50 mcg tablet 50 mcg PO DAILY Qty: 30 2RF ondansetron 4 mg tablet,disintegrating 4 mg PO Q8H PRN PRN (Reason: Nausea) Qty: 30 0RF Primary Care Provider: Rosa Bragg Referrals: ROSALBA MARLEY [Other] Disposition Disposition: DC/Tx to Another Type of HCF
[2023-09-06 11:40] LABS: ALB/GLOB Ratio 0.8 RATIO (0.9-2.4); AST(SGOT) 45 U/L (15-37); Alanine Aminotransfer ALT/SGPT 60 U/L (13-56); Albumin, Serum 3.5 g/dL (3.2-5.0); Alkaline Phosphatase 131 U/L (45-117); Anion Gap 3 (5-15); BUN 33 mg/dL (7-18); Calcium,Total 10.7 mg/dL (8.5-10.1); Chloride 99 mmol/L (98-107); Creatinine, Serum 0.97 mg/dL (0.55-1.02); EST Glomerular Filtration Rate 60 mL/min (>60); Est Glom Filt Rate - Afr Amer 73 mL/min (>60); Estimated Creatinine Clearance 43.29 ml/min; Globulin 4.4 g/dL (2.2-4.2); Glucose 118 mg/dL (74-106); Lipase 69 U/L (13-75); Potassium 5.1 mmol/L (3.5-5.1); Protein, Total 7.9 g/dL (6.4-8.2); Sodium Level 132 mmol/L (136-145)
[2023-09-06 11:41] LABS: Lactic Acid 0.8 mmol/L (0.4-1.9)
== END 2023-09-06 16:48 | disposition other institution (70) ==
PROVIDERS: Emergency Provider Emergency Medicine; PCP Internal Medicine; Visit Provider Emergency Medicine
DX: K43.9 Ventral hernia without obstruction or gangrene (principal); J44.9 Chronic obstructive pulmonary disease, unspecified; Z87.891 Personal history of nicotine dependence; N20.0 Calculus of kidney; K76.0 Fatty (change of) liver, not elsewhere classified
CPT/HCPCS: 74176; 80053; 83605; 83690; 85025; 85610; 85730; 96361; 96374; 96375; 96376; 99284; J7030; A4216; J2405

== ENCOUNTER → 2023-10-17 | Outpatient (CLI) | payer MEDICARE, MEDICAID, SELFPAY ==
[2023-04-18 07:37] VITALS: BMI 41.0
[2023-10-17 10:31] LABS: Hematocrit 38.4 % (37-47); Hemoglobin 12.1 g/dL (12.0-15.0); Mean Corp Hgb Conc 31.5 g/dL (32-36); Mean Corpuscular Volume 82.6 fL (81-99); Mean Platelet Vol. 8.1 fl (6.2-12.0); Platelet Count 358 K/mm3 (150-450); RBC Distribution Width CV 15.5 % (11.6-14.6); RBC Distribution Width SD 46.8 fl (35.1-43.9); Red Blood Count 4.65 M/mm3 (4.2-5.4); White Blood Count 12.7 K/mm3 (4.4-11.0)
[2023-10-17 11:07] LABS: ALB/GLOB Ratio 0.7 RATIO (0.9-2.4); AST(SGOT) 26 U/L (15-37); Alanine Aminotransfer ALT/SGPT 26 U/L (13-56); Albumin, Serum 3.1 g/dL (3.2-5.0); Alkaline Phosphatase 148 U/L (45-117); Anion Gap 6 (5-15); BUN 11 mg/dL (7-18); BUN/Creat Ratio 11.2 RATIO (10-20); Chloride 101 mmol/L (98-107); Cholesterol 162 mg/dL (200); Creatinine, Serum 0.98 mg/dL (0.55-1.02); EST Glomerular Filtration Rate 60 mL/min (>60); Est Glom Filt Rate - Afr Amer 72 mL/min (>60); Free T3 2.3 pg/mL (2.18-3.98); Globulin 4.2 g/dL (2.2-4.2); Glucose 113 mg/dL (74-106); High Density Lipoprotein 61 mg/dL; Potassium 4.2 mmol/L (3.5-5.1); Protein, Total 7.3 g/dL (6.4-8.2); Sodium Level 133 mmol/L (136-145); T4 Free Direct 1.18 ng/dL (0.76-1.46); Thyroid Stim Hormone (TSH) 2.07 uIU/mL (0.358-3.74); Triglycerides 129 mg/dL; Very Low Density Lipoprotein 26 mg/dL (5-40)
== END | disposition home or self-care (01) ==
PROVIDERS: PCP Family Medicine; Referring Provider Family Medicine; Visit Provider Family Medicine
DX: I10 Essential (primary) hypertension (principal); E03.9 Hypothyroidism, unspecified; F43.10 Post-traumatic stress disorder, unspecified
CPT/HCPCS: 80053; 80061; 84439; 84443; 84481; 85027

== ENCOUNTER 2023-10-20 09:41 | Emergency (ER) | payer MEDICARE, MEDICAID, SELFPAY ==
[2023-04-18 07:37] VITALS: BMI 41.0
[2023-10-20 09:42] VITALS: BP 129/89; PULSE 97; RESP 18; TEMP 36.5; O2SAT 94
--- NOTE | 2023-10-20 10:20 | EDS_ITS ---
HPI History of Present Illness Chief Complaint: Wound Check Informant: patient Narrative Narrative: Patient presents secondary to wound dehiscence. She had abdominal surgery in August for gallbladder removal as well as hernia repair. Surgery was performed Dr. Valencia at [facility] in [place]. Patient states she went to get off the couch this morning and felt the lower aspect of her wound open. She had some mild bleeding. She is scheduled to see Dr. Valencia in 1 week. [facility] Medical History Anxiety and depression Arthritis BMI 40.0-44.9, adult COPD (chronic obstructive pulmonary disease) Cough due to bronchospasm Degenerative lumbar spinal stenosis Dyspnea on exertion Encounter for screening for malignant neoplasm of lung in current smoker with 30 pack year history or greater Gallstones GERD (gastroesophageal reflux disease) Hypertension Kidney stones Oral thrush PTSD (post-traumatic stress disorder) Spinal stenosis Tobacco use disorder, continuous Home Medications prazosin 1 mg capsule 1 mg PO DAILY blood pressure 09/29/17 [History Last Taken 01/08/21] sertraline 100 mg tablet 200 mg PO DAILY depression 10/23/20 [History Last Taken 01/08/21] aripiprazole 20 mg tablet 20 mg PO DAILY mood 01/06/21 [History Last Taken 01/08/21] prazosin 2 mg capsule 2 mg PO QHS blood pressure 01/06/21 [History Last Taken 01/08/21] Pulse oximeter #1 ea 02/05/21 [Rx Last Taken Unknown] blood pressure monitor (Blood Pressure Kit) #1 ea 02/05/21 [Rx Last Taken Unknown] walker (Ultra-Light Rollator [facility]) #1 ea 03/24/21 [Rx Last Taken Unknown] bupropion HCl 150 mg 24 hr tablet, extended release 300 mg PO DAILY mood 05/05/21 [History Last Taken Unknown] budesonide 160 mcg-glycopyr 9 mcg-formot 4.8 mcg/actuation HFA inhaler (Breztri Aerosphere) 2 inh inhalation BID 12/07/21 [History Last Taken Unknown] amlodipine 5 mg tablet 5 mg PO DAILY blood pressure #90 tabs 01/14/22 [Rx Last Taken Unknown] azelastine 137 mcg-fluticasone 50 mcg/spray nasal spray 1 spray intranasal BID #23 grams 01/26/22 [Rx Last Taken Unknown] underpads (Bed Underpads) #40 ea 02/16/22 [Rx Last Taken Unknown] celecoxib 200 mg capsule 200 mg PO DAILY #60 caps 06/28/22 [Rx Last Taken Unknown] vibegron 75 mg tablet (Gemtesa) 75 mg PO DAILY 07/14/22 [History Last Taken Unknown] esomeprazole magnesium 20 mg capsule,delayed release 20 mg PO DAILY gerd #90 caps 08/12/22 [Rx Last Taken Unknown] lisinopril 20 mg-hydrochlorothiazide 25 mg tablet 1 tab PO DAILY blood pressure #90 tabs 08/12/22 [Rx Last Taken Unknown] nebulizer inhalation 3XD 12/08/22 [History Last Taken Unknown] lidocaine 5 % patch and menthol 6 % gel topical kit See Rx Instructions topical .COMPLEX #1 ea 02/11/23 [Rx Last Taken Unknown] budesonide 160 mcg-glycopyr 9 mcg-formot 4.8 mcg/actuation HFA inhaler (Breztri [employer]) 2 inh inhalation BID 03/24/23 [History Last Taken Unknown] prednisone 10 mg tablet 10 mg PO DAILY 03/24/23 [History Last Taken Unknown] buprenorphine 5 mcg/hour weekly transdermal patch 1 patch transdermal QWEEK 05/19/23 [History Last Taken Unknown] cholecalciferol (vitamin D3) 1,250 mcg (50,000 unit) capsule 1,250 mcg PO QWEEK #12 caps 05/19/23 [Rx Last Taken Unknown] nitrofurantoin monohydrate/macrocrystals 100 mg capsule (Macrobid) 100 mg PO Q12H 5 days #10 caps 06/05/23 [Rx Last Taken Unknown] promethazine 25 mg tablet 25 mg PO TID PRN nausea and vomiting #14 tabs 06/05/23 [Rx Last Taken Unknown] ondansetron 4 mg disintegrating tablet 4 mg PO Q8H PRN PRN Nausea #10 tabs 07/08/23 [Rx Last Taken Unknown] prednisone 20 mg tablet 60 mg (3 x 20 mg) PO DAILY #15 TABLETS 07/08/23 [Rx Last Taken Unknown] sucralfate 1 gram tablet (Carafate) 1 g PO QACHS #30 tabs 07/11/23 [Rx Last Taken Unknown] food supplemt, lactose-reduced 0.04 gram-1.05 kcal/mL oral liquid (Ensure Original) See Rx Instructions PO .COMPLEX #5,688 mL 07/25/23 [Rx Last Taken Unknown] cephalexin 500 mg capsule 500 mg PO Q6 #12 CAPSULES 07/29/23 [Rx Last Taken Unknown] levothyroxine 50 mcg tablet 50 mcg PO DAILY #30 tabs 08/09/23 [Rx Last Taken Unknown] ondansetron 4 mg disintegrating tablet 4 mg PO Q8H PRN PRN Nausea #30 tabs 08/09/23 [Rx Last Taken Unknown] lorazepam 0.5 mg tablet 1 mg (2 x 0.5 mg) PO QHS PRN sleep #30 tabs 09/19/23 [Rx Last Taken Unknown] cephalexin 500 mg capsule 500 mg PO Q12 #14 CAPSULES 10/20/23 [Rx Last Taken Unknown] Allergy/AdvReac Type Severity Reaction Status Date / Time prednisone AdvReac Other Verified 10/20/23 09:45 Sulfa (Sulfonamide AdvReac Nausea Verified 10/20/23 09:45 Antibiotics) Family History Mother Diabetes Hypertension Breast cancer Father Heart disease Hypertension Myocardial infarction, Onset Age: 46 Surgical History History of History of D&C History of hand surgery History of hysterectomy Hx of cholecystectomy Hx of hernia repair Social History household members: none Smoking Status: Former smoker quit date: 01/03/21 Tobacco: How many years used: 36 alcohol intake: never substance use type: does not use what type of physical activity do you participate in: none ROS ROS ED Constitutional Constitutional ED: Denies chills or fever(s) Eyes Eyes: Denies discharge from eye(s) ENT ENT ED: Denies discharge from eye(s), rhinorrhea or sore throat Cardiovascular Cardiovascular: Denies chest pain or palpitations Respiratory/Chest Respiratory/Chest: Denies cough or dyspnea Gastrointestinal Gastrointestinal: Reports abdominal pain; Denies diarrhea, nausea or vomiting Genitourinary Genitourinary ED: Denies dysuria Musculoskeletal Musculoskeletal: Denies back pain or extremity pain Integumentary Denies Abrasions or rash Neurologic Neurologic: Denies headache(s) or weakness Psychiatric Psychiatric: Denies anxiety or depression Allergic/Immunologic Allergic/Immunologic ED: Denies lip swelling or urticaria EXAM Physical Exam Const Vital Signs: 10/20/23 09:42 Temperature 97.7 F L Temperature Source Temporal Pulse Rate 97 Respiratory Rate 18 Blood Pressure 129/89 H Blood Pressure Mean 102 Pulse Ox 94 Oxygen Delivery Method Room Air Positive well nourished and well developed General Appearance ED: well developed HEENT Reports moist mucous membranes Eyes EOMs intact bilaterally Chest Wall inspection of chest normal and palpation of chest normal Resp normal respiratory effort and clear to auscultation bilaterally Cardio regular rate and regular rhythm GI GI Narrative: Vertical abdominal incision well-healed, except for the lower 4 cm which are slightly dehisced. It does appear the internal sutures are still intact. No active bleeding at this time. Extremity normal to inspection Neuro oriented x3 and no sensory deficits noted Motor Exam: strength 5/5 throughout Psych mental status grossly normal MDM MDM MDM Narrative Medical decision making narrative: Wound will be cleansed and dressed. Abdominal binder will be provided. She will be covered with Keflex to help prevent infection. Daily wound care discussed and patient will follow-up with her surgeon next week as scheduled. Discharge Plan Triage Chief Complaint: Wound Check ED Provider: Sahara Montoya Dx/Rx/DC Orders Clinical Impression: Abdominal wound dehiscence Instructions: ED Post Op Wound Check, Bleeding, ED Wound Care Prescriptions: New cephalexin 500 mg capsule 500 mg PO Q12 Qty: 14 0RF No Action azelastine-fluticasone 137-50 mcg/spray spray,non-aerosol 1 spray intranasal BID Qty: 23 6RF Rx Instructions: administer into each nostril Breztri Aerosphere 160-9-4.8 mcg/actuation HFA aerosol inhaler 2 inh inhalation BID nebulizer inhalation 3XD Gemtesa 75 mg tablet 75 mg PO DAILY buprenorphine 5 mcg/hour patch weekly 1 patch transdermal QWEEK cholecalciferol (vitamin D3) 1,250 mcg (50,000 unit) capsule 1,250 mcg PO QWEEK Qty: 12 3RF prazosin 1 MG capsule 1 mg PO DAILY sertraline 100 mg tablet 200 mg PO DAILY prazosin 2 mg capsule 2 mg PO QHS aripiprazole 20 mg tablet 20 mg PO DAILY bupropion HCl 150 mg tablet extended release 24 hr 300 mg PO DAILY prednisone 10 mg tablet 10 mg PO DAILY Breztri Aerosphere 160-9-4.8 mcg/actuation HFA aerosol inhaler 2 inh inhalation BID lidocaine-menthol 5-6 % kit See Rx Instructions .ROUTE .COMPLEX Qty: 1 0RF Rx Instructions: apply LIDIOCAINE PATCH once a day/may leave on for up to 12 hrs; apply MENTHOL GEL 1 - 4 times/day as needed for pain. nitrofurantoin monohyd/m-cryst [Macrobid] 100 mg capsule 100 mg PO Q12H 5 Days Qty: 10 0RF Rx Instructions: must administer with a meal/food promethazine 25 mg tablet 25 mg PO TID PRN (Reason: nausea and vomiting) Qty: 14 0RF prednisone 20 mg tablet 60 mg PO DAILY Qty: 15 0RF ondansetron [ondansetron] 4 mg tablet,disintegrating 4 mg PO Q8H PRN PRN (Reason: Nausea) Qty: 10 0RF cephalexin [cephalexin] 500 mg capsule 500 mg PO Q6 Qty: 12 0RF (DME) blood pressure monitor [Blood Pressure Kit] Kit See Rx Instructions .ROUTE .MEDSUPPLY Qty: 1 0RF Rx Instructions: Check daily and as needed (DME) Pulse oximeter See Rx Instructions .Route .MEDSUPPLY Qty: 1 0RF Rx Instructions: Monitor daily or as needed (DME) Ultra-Light Rollator Misc See Rx Instructions .ROUTE .MEDSUPPLY Qty: 1 0RF Rx Instructions: As directed amlodipine 5 mg tablet 5 mg PO DAILY Qty: 90 3RF (DME) underpads [Bed Underpads] Pad See Rx Instructions .Route Qty: 40 6RF Rx Instructions: R32. celecoxib 200 mg capsule 200 mg PO DAILY Qty: 60 0RF esomeprazole magnesium 20 mg capsule,delayed release(DR/EC) 20 mg PO DAILY Qty: 90 3RF lisinopril-hydrochlorothiazide 20-25 mg tablet 1 tab PO DAILY Qty: 90 3RF sucralfate [Carafate] 1 gram tablet 1 g PO QACHS Qty: 30 0RF Ensure Original 0.04-1.05 gram-kcal/mL liquid See Rx Instructions PO .COMPLEX Qty: 5688 5RF Rx Instructions: 1 can twice daily orally; levothyroxine 50 mcg tablet 50 mcg PO DAILY Qty: 30 2RF ondansetron 4 mg tablet,disintegrating 4 mg PO Q8H PRN PRN (Reason: Nausea) Qty: 30 0RF lorazepam 0.5 mg tablet 1 mg PO QHS PRN (Reason: sleep) Qty: 30 0RF Primary Care Provider: Tre Weston Referrals: Tre Weston MD [Primary Care Provider] - Activity Restrictions/Additional Instructions: Follow-up with your surgeon next as scheduled. Gently clean the wound and replace the dressing daily. Wear the abdominal binder for extra support. Disposition Disposition: Home, Self Care
[2023-10-20] MEDS: Cephalexin 250 MG Capsule 500 MG PO (10:41)
== END 2023-10-20 10:54 | disposition home or self-care (01) ==
PROVIDERS: Emergency Provider Emergency Medicine; PCP Family Medicine; Visit Provider Emergency Medicine
DX: T81.31XA Disruption of external operation (surgical) wound, not elsewhere classified, initial encounter (principal); J44.9 Chronic obstructive pulmonary disease, unspecified; Y83.6 Removal of other organ (partial) (total) as the cause of abnormal reaction of the patient, or of later complication, without mention of misadventure at the time of the procedure; I10 Essential (primary) hypertension; Z79.899 Other long term (current) drug therapy; Z87.891 Personal history of nicotine dependence
CPT/HCPCS: 99282

== ENCOUNTER → 2023-11-08 | Outpatient (CLI) | payer MEDICARE, MEDICAID, SELFPAY ==
[2023-04-18 07:37] VITALS: BMI 41.0
--- NOTE | 2023-11-08 10:50 | RAD_ITS ---
EXAM: XR CERVICAL SPINE, 4 OR 5 VIEWS CLINICAL INDICATION: Neck pain TECHNIQUE: Frontal, lateral and bilateral oblique views of the cervical spine. COMPARISON: No relevant prior studies available. FINDINGS: VERTEBRAE: No acute fracture or subluxation. DISC SPACES: Multilevel disc space narrowing involving C3-C7 as well as multilevel facet arthropathy. SOFT TISSUES: Normal. No prevertebral soft tissue widening. VASCULATURE: Calcific plaquing of the right carotid artery noted. LUNG APICES: Clear. RAD/Cerv Spine 4 or 5 Views IMPRESSION: Prominent diffuse spondylosis. Electronically Signed: Tello Saldana MD at 10:06 EDT ,
== END | disposition home or self-care (01) ==
LOC: MTRAD 10:50
PROVIDERS: PCP Family Medicine; Referring Provider Family Medicine; Visit Provider Family Medicine
DX: M54.2 Cervicalgia (principal)
CPT/HCPCS: 72050

== ENCOUNTER 2023-11-23 15:27 | Emergency (ER) | payer MEDICARE, MEDICAID, SELFPAY ==
[2023-04-18 07:37] VITALS: BMI 41.0
[2023-11-23] VITALS (7 sets, daily range): BP systolic 116–133; BP diastolic 75–80; PULSE 97–110; RESP 14–26; TEMP 35.8–36.8; O2SAT 90–95; BMI 38.8
--- NOTE | 2023-11-23 15:41 | EKG12_ITS ---
Test Reason : SOB Blood Pressure : / mmHG Vent. Rate : 100 BPM Atrial Rate : 100 BPM P-R Int : 140 ms QRS Dur : 074 ms QT Int : 332 ms P-R-T Axes : 057 047 049 degrees QTc Int : 428 ms Normal sinus rhythm Nonspecific ST abnormality Abnormal ECG Confirmed by DUKE POWERS, ROBE ([id number]), photographic editor NOAH CHAPA ([id number]) on 11/24/2023 9:17:30 AM Referred By: MANA Confirmed By:ROBE WALL MD
[2023-11-23] MEDS: Ipratropium/Albuterol Sulfate 3 ML AMPUL.NEB INHALATION (15:50)
[2023-11-23] MEDS: Albuterol 2.5 MG/3 ML VIAL.NEB. INHALATION ×3 (15:51)
[2023-11-23] MEDS: MethylPREDNISolone 125 MG/2 ML Vial IV (15:53)
--- NOTE | 2023-11-23 15:53 | ED.VIS.DYS ---
HPI History of Present Illness Chief Complaint: Shortness of Breath Informant: patient Onset/Context/Timing Onset: Days (4 days) Narrative Narrative: Patient presents secondary to shortness of breath. She has a history of COPD and reports increased shortness of breath for the past 4 days. Increased cough with wheezing also noted. Nursing notes document that she was out of her portable oxygen. Patient states that she has her regular oxygen concentrator at home, but the portable tank was empty. They are delivering a new one tomorrow. She states she typically uses 2 L. She denies having fever. No significant chest pain. [facility] Medical History Anxiety and depression Arthritis BMI 40.0-44.9, adult COPD (chronic obstructive pulmonary disease) Cough due to bronchospasm Degenerative lumbar spinal stenosis Dyspnea on exertion Encounter for screening for malignant neoplasm of lung in current smoker with 30 pack year history or greater Gallstones GERD (gastroesophageal reflux disease) Hypertension Kidney stones Oral thrush PTSD (post-traumatic stress disorder) Spinal stenosis Tobacco use disorder, continuous Home Medications prazosin 1 mg capsule 1 mg PO DAILY blood pressure 09/29/17 [History Last Taken 01/08/21] sertraline 100 mg tablet 200 mg PO DAILY depression 10/23/20 [History Last Taken 01/08/21] aripiprazole 20 mg tablet 20 mg PO DAILY mood 01/06/21 [History Last Taken 01/08/21] prazosin 2 mg capsule 2 mg PO QHS blood pressure 01/06/21 [History Last Taken 01/08/21] Pulse oximeter #1 ea 02/05/21 [Rx Last Taken Unknown] blood pressure monitor (Blood Pressure Kit) #1 ea 02/05/21 [Rx Last Taken Unknown] walker (Ultra-Light Rollator misc) #1 ea 03/24/21 [Rx Last Taken Unknown] bupropion HCl 150 mg 24 hr tablet, extended release 300 mg PO DAILY mood 05/05/21 [History Last Taken Unknown] budesonide 160 mcg-glycopyr 9 mcg-formot 4.8 mcg/actuation HFA inhaler (Breztri Aerosphere) 2 inh inhalation BID 12/07/21 [History Last Taken Unknown] amlodipine 5 mg tablet 5 mg PO DAILY blood pressure #90 tabs 01/14/22 [Rx Last Taken Unknown] azelastine 137 mcg-fluticasone 50 mcg/spray nasal spray 1 spray intranasal BID #23 grams 01/26/22 [Rx Last Taken Unknown] underpads (Bed Underpads) #40 ea 02/16/22 [Rx Last Taken Unknown] celecoxib 200 mg capsule 200 mg PO DAILY #60 caps 06/28/22 [Rx Last Taken Unknown] vibegron 75 mg tablet (Gemtesa) 75 mg PO DAILY 07/14/22 [History Last Taken Unknown] esomeprazole magnesium 20 mg capsule,delayed release 20 mg PO DAILY gerd #90 caps 08/12/22 [Rx Last Taken Unknown] lisinopril 20 mg-hydrochlorothiazide 25 mg tablet 1 tab PO DAILY blood pressure #90 tabs 08/12/22 [Rx Last Taken Unknown] nebulizer inhalation 3XD 12/08/22 [History Last Taken Unknown] lidocaine 5 % patch and menthol 6 % gel topical kit See Rx Instructions topical .COMPLEX #1 ea 02/11/23 [Rx Last Taken Unknown] budesonide 160 mcg-glycopyr 9 mcg-formot 4.8 mcg/actuation HFA inhaler (Breztri Aerosphere) 2 inh inhalation BID 03/24/23 [History Last Taken Unknown] prednisone 10 mg tablet 10 mg PO DAILY 03/24/23 [History Last Taken Unknown] buprenorphine 5 mcg/hour weekly transdermal patch 1 patch transdermal QWEEK 05/19/23 [History Last Taken Unknown] cholecalciferol (vitamin D3) 1,250 mcg (50,000 unit) capsule 1,250 mcg PO QWEEK #12 caps 05/19/23 [Rx Last Taken Unknown] nitrofurantoin monohydrate/macrocrystals 100 mg capsule (Macrobid) 100 mg PO Q12H 5 days #10 caps 06/05/23 [Rx Last Taken Unknown] promethazine 25 mg tablet 25 mg PO TID PRN nausea and vomiting #14 tabs 06/05/23 [Rx Last Taken Unknown] ondansetron 4 mg disintegrating tablet 4 mg PO Q8H PRN PRN Nausea #10 tabs 07/08/23 [Rx Last Taken Unknown] prednisone 20 mg tablet 60 mg (3 x 20 mg) PO DAILY #15 TABLETS 07/08/23 [Rx Last Taken Unknown] sucralfate 1 gram tablet (Carafate) 1 g PO QACHS #30 tabs 07/11/23 [Rx Last Taken Unknown] food supplemt, lactose-reduced 0.04 gram-1.05 kcal/mL oral liquid (Ensure Original) See Rx Instructions PO .COMPLEX #5,688 mL 07/25/23 [Rx Last Taken Unknown] cephalexin 500 mg capsule 500 mg PO Q6 #12 CAPSULES 07/29/23 [Rx Last Taken Unknown] levothyroxine 50 mcg tablet 50 mcg PO DAILY #30 tabs 08/09/23 [Rx Last Taken Unknown] ondansetron 4 mg disintegrating tablet 4 mg PO Q8H PRN PRN Nausea #30 tabs 08/09/23 [Rx Last Taken Unknown] lorazepam 0.5 mg tablet 1 mg (2 x 0.5 mg) PO QHS PRN sleep #30 tabs 09/19/23 [Rx Last Taken Unknown] cephalexin 500 mg capsule 500 mg PO Q12 #14 CAPSULES 10/20/23 [Rx Last Taken Unknown] prednisone 20 mg tablet 40 mg (2 x 20 mg) PO DAILY #10 tabs 11/23/23 [Rx Last Taken Unknown] Allergy/AdvReac Type Severity Reaction Status Date / Time prednisone AdvReac Other Verified 11/23/23 15:58 Sulfa (Sulfonamide AdvReac Nausea Verified 11/23/23 15:58 Antibiotics) Family History Mother Diabetes Hypertension Breast cancer Father Heart disease Hypertension Myocardial infarction, Onset Age: 46 Surgical History History of History of D&C History of hand surgery History of hysterectomy Hx of cholecystectomy Hx of hernia repair Social History household members: none Smoking Status: Former smoker quit date: 01/03/21 Tobacco: How many years used: 36 alcohol intake: never substance use type: does not use what type of physical activity do you participate in: none ROS ROS ED Constitutional Constitutional ED: Denies chills or fever(s) Eyes Eyes: Denies discharge from eye(s) ENT ENT ED: Denies discharge from eye(s), rhinorrhea or sore throat Cardiovascular Cardiovascular: Denies chest pain or palpitations Respiratory/Chest Respiratory/Chest: Reports cough and dyspnea Gastrointestinal Gastrointestinal: Denies abdominal pain, nausea or vomiting Genitourinary Genitourinary ED: Denies dysuria Musculoskeletal Musculoskeletal: Denies back pain or extremity pain Integumentary Denies Abrasions or rash Neurologic Neurologic: Denies headache(s) or weakness Psychiatric Psychiatric: Denies anxiety or depression Allergic/Immunologic Allergic/Immunologic ED: Denies lip swelling or urticaria EXAM Physical Exam Const Vital Signs: 11/23/23 15:28 11/23/23 15:28 11/23/23 15:56 Temperature 96.5 F L Temperature Source Temporal Pulse Rate 104 H 104 H Respiratory Rate 26 H 26 H Respiratory Effort Short of Breath Labored Respiratory Pattern Tachypnea Blood Pressure 128/80 H 128/80 H Blood Pressure Mean 96 96 Pulse Ox 90 90 Oxygen Delivery Method Nasal Cannula Nasal Cannula Nasal Cannula Oxygen Flow Rate (L/min) 4 4 3.5 11/23/23 15:56 11/23/23 15:57 11/23/23 16:30 Temperature Temperature Source Pulse Rate 97 101 H Respiratory Rate 16 14 Respiratory Effort Respiratory Pattern Blood Pressure 133/79 H Blood Pressure Mean 97 Pulse Ox 95 93 Oxygen Delivery Method Nasal Cannula Oxygen Flow Rate (L/min) 4 11/23/23 16:30 11/23/23 17:00 Temperature 98.3 F 98.2 F Temperature Source Temporal Temporal Pulse Rate 101 H 103 H Respiratory Rate 14 14 Respiratory Effort Respiratory Pattern Blood Pressure 133/79 H 116/75 Blood Pressure Mean 97 88 Pulse Ox 93 92 Oxygen Delivery Method Nasal Cannula Nasal Cannula Oxygen Flow Rate (L/min) 3.5 3.5 Positive well nourished and well developed General Appearance ED: well developed HEENT Reports moist mucous membranes Eyes EOMs intact bilaterally Resp Resp Narrative: Patient mildly tachypneic with wheezes bilaterally. Cardio regular rate and regular rhythm GI non-tender Palpation: soft Extremity normal to inspection Neuro oriented x3 and no sensory deficits noted Sensorium / Orientation: alert Motor Exam: strength 5/5 throughout Psych mental status grossly normal MDM MDM MDM Narrative Medical decision making narrative: Patient placed on awake overnight monitor. IV line initiated. Labwork obtained to evaluate for leukocytosis, anemia, and electrolyte derangement. EKG obtained to evaluate for cardiac arrhythmia/ischemia. Chest x-ray obtained to evaluate for acute lung pathology, cardiac size, or mediastinal abnormality. Patient given Solu-Medrol along with aerosols. History & Record Review Discussion w/independent historian: Patient Additional record(s) reviewed:: Prior ED visit and Prior labs Lab Data Attestation: I reviewed the patient's lab results. Labs: Laboratory Results - last 24 hr 11/23/23 15:55 WBC 13.6 H RBC 5.29 Hgb 12.9 Hct 41.9 MCV 79.2 L MCH 24.4 L MCHC 30.8 L RDW Std Deviation 45.1 H RDW Coeff of Ronny 15.9 H Plt Count 304 MPV 8.0 Immature Gran % (Auto) 1.200 H Neut % (Auto) 81.5 H Lymph % (Auto) 9.5 L Schoolcraft % (Auto) 6.2 Eos % (Auto) 1.2 Baso % (Auto) 0.4 Absolute Neuts (auto) 11.1 H Absolute Lymphs (auto) 1.29 Nucleated RBC % 0 Sodium 132 L Potassium 3.9 Chloride 97 L Carbon Dioxide 29.0 Anion Gap 6 BUN 13 Creatinine 0.99 Estim Creat Clear Calc 55.06 Est GFR (MDRD) Af Amer 71 Est GFR (MDRD) Non-Af 59 L BUN/Creatinine Ratio 13.1 Glucose 106 Calcium 9.7 Radiography Chest X-Ray - ED: 1 View, Read by ED Physician, Chronic Changes and No Infiltrates Diagnostic Testing: Clinical Impression(s) from Imaging Studies Chest X-Ray 11/23/23 16:00 IMPRESSION: No radiographic evidence of acute cardiopulmonary disease. Electronically Signed: Hoang Osuna MD at 16:25 EDT , EKG Initial EKG: Attestation: I personally reviewed and interpreted this EKG as follows: Interpretation: Sinus Rhythm (Sinus at [address] changes. No acute ischemia.) Treatment and Re-Evaluation :: CBC reveals a white count of 13.6 with 81% neutrophils. Hemoglobin is 12.9. Chemistry studies reveal a sodium of 132 which is consistent with her baseline. Renal function is normal. Portable chest x-ray per my interpretation reveals no focal infiltrate with chronic changes. Radiology interpretation reviewed and agrees. Swab for COVID and influenza is negative, however RSV test is positive. On repeat evaluation she does have improved air movement bilaterally with slight wheezing noted on the left. Her sat is 93% on 3 to 4 L nasal cannula. She is comfortable with discharge to home and I will write her for prednisone. Her pulmonary doctor put her on amoxicillin a few days ago and I encouraged her to continue this given her underlying COPD. Discharge Plan Triage Chief Complaint: Shortness of Breath ED Provider: Sahara Montoya Dx/Rx/DC Orders Clinical Impression: RSV bronchitis Instructions: RSV (Respiratory Syncytial Virus) Prescriptions: New prednisone 20 mg tablet 40 mg PO DAILY Qty: 10 0RF No Action azelastine-fluticasone 137-50 mcg/spray spray,non-aerosol 1 spray intranasal BID Qty: 23 6RF Rx Instructions: administer into each nostril Breztri Aerosphere 160-9-4.8 mcg/actuation HFA aerosol inhaler 2 inh inhalation BID nebulizer inhalation 3XD Gemtesa 75 mg tablet 75 mg PO DAILY buprenorphine 5 mcg/hour patch weekly 1 patch transdermal QWEEK cholecalciferol (vitamin D3) 1,250 mcg (50,000 unit) capsule 1,250 mcg PO QWEEK Qty: 12 3RF prazosin 1 MG capsule 1 mg PO DAILY sertraline 100 mg tablet 200 mg PO DAILY prazosin 2 mg capsule 2 mg PO QHS aripiprazole 20 mg tablet 20 mg PO DAILY bupropion HCl 150 mg tablet extended release 24 hr 300 mg PO DAILY prednisone 10 mg tablet 10 mg PO DAILY Breztri Aerosphere 160-9-4.8 mcg/actuation HFA aerosol inhaler 2 inh inhalation BID lidocaine-menthol 5-6 % kit See Rx Instructions .ROUTE .COMPLEX Qty: 1 0RF Rx Instructions: apply LIDIOCAINE PATCH once a day/may leave on for up to 12 hrs; apply MENTHOL GEL 1 - 4 times/day as needed for pain. nitrofurantoin monohyd/m-cryst [Macrobid] 100 mg capsule 100 mg PO Q12H 5 Days Qty: 10 0RF Rx Instructions: must administer with a meal/food promethazine 25 mg tablet 25 mg PO TID PRN (Reason: nausea and vomiting) Qty: 14 0RF prednisone 20 mg tablet 60 mg PO DAILY Qty: 15 0RF ondansetron [ondansetron] 4 mg tablet,disintegrating 4 mg PO Q8H PRN PRN (Reason: Nausea) Qty: 10 0RF cephalexin [cephalexin] 500 mg capsule 500 mg PO Q6 Qty: 12 0RF cephalexin 500 mg capsule 500 mg PO Q12 Qty: 14 0RF (DME) blood pressure monitor [Blood Pressure Kit] Kit See Rx Instructions .ROUTE .MEDSUPPLY Qty: 1 0RF Rx Instructions: Check daily and as needed (DME) Pulse oximeter See Rx Instructions .Route .MEDSUPPLY Qty: 1 0RF Rx Instructions: Monitor daily or as needed (DME) Ultra-Light Rollator Misc See Rx Instructions .ROUTE .MEDSUPPLY Qty: 1 0RF Rx Instructions: As directed amlodipine 5 mg tablet 5 mg PO DAILY Qty: 90 3RF (DME) underpads [Bed Underpads] Pad See Rx Instructions .Route Qty: 40 6RF Rx Instructions: R32. celecoxib 200 mg capsule 200 mg PO DAILY Qty: 60 0RF esomeprazole magnesium 20 mg capsule,delayed release(DR/EC) 20 mg PO DAILY Qty: 90 3RF lisinopril-hydrochlorothiazide 20-25 mg tablet 1 tab PO DAILY Qty: 90 3RF sucralfate [Carafate] 1 gram tablet 1 g PO QACHS Qty: 30 0RF Ensure Original 0.04-1.05 gram-kcal/mL liquid See Rx Instructions PO .COMPLEX Qty: 5688 5RF Rx Instructions: 1 can twice daily orally; levothyroxine 50 mcg tablet 50 mcg PO DAILY Qty: 30 2RF ondansetron 4 mg tablet,disintegrating 4 mg PO Q8H PRN PRN (Reason: Nausea) Qty: 30 0RF lorazepam 0.5 mg tablet 1 mg PO QHS PRN (Reason: sleep) Qty: 30 0RF Primary Care Provider: Tre Weston Referrals: Tre Weston MD [Primary Care Provider] - 1 Week Disposition Disposition: Home, Self Care
[2023-11-23 16:00] LABS: Absolute Lymphocyte Count 1.29 X10^3/uL (0.83-4.51); Absolute Neutrophil Count 11.1 X10^3/uL (2.0-7.7); Basophil# 0.06 X10^3/uL; Basophil% 0.4 % (0-1); Eosinophil# 0.16 X10^3/uL; Eosinophils% 1.2 % (0-5); Hematocrit 41.9 % (37-47); Hemoglobin 12.9 g/dL (12.0-15.0); Lymphocyte # 1.29 X10^3/ul (0.83-4.51); Lymphocyte % 9.5 % (19-41); Mean Corp Hgb Conc 30.8 g/dL (32-36); Mean Corpuscular Hgb 24.4 pg (27.0-32.0); Mean Corpuscular Volume 79.2 fL (81-99); Monocyte# 0.85 X10^3/uL; Monocyte% 6.2 % (0-10); NRBC Flagged by Analyzer 0 % (0-5); Neutrophil # 11.11 X10^3/uL (2.7-7.7); Neutrophil % 81.5 % (47-70); Platelet Count 304 K/mm3 (150-450); RBC Distribution Width CV 15.9 % (11.6-14.6); RBC Distribution Width SD 45.1 fl (35.1-43.9); Red Blood Count 5.29 M/mm3 (4.2-5.4); White Blood Count 13.6 K/mm3 (4.4-11.0)
--- NOTE | 2023-11-23 16:00 | RAD_ITS ---
EXAM: XR CHEST, 1 VIEW CLINICAL INDICATION: sob TECHNIQUE: Frontal view of the chest. COMPARISON: No relevant prior studies available. FINDINGS: LUNGS AND PLEURAL SPACES: Unremarkable. No consolidation or edema. No pneumothorax. No effusion. HEART: Unremarkable. Cardiac silhouette not enlarged. MEDIASTINUM: Central airways and mediastinal contour are unremarkable. BONES/JOINTS: Unremarkable. No acute fracture. SOFT TISSUES: Unremarkable. RAD/Chest 1 View (Portable) IMPRESSION: No radiographic evidence of acute cardiopulmonary disease. Electronically Signed: Hoang Osuna MD at 16:25 EDT ,
[2023-11-23 16:15] LABS: Anion Gap 6 (5-15); BUN 13 mg/dL (7-18); BUN/Creat Ratio 13.1 RATIO (10-20); Calcium,Total 9.7 mg/dL (8.5-10.1); Chloride 97 mmol/L (98-107); Creatinine, Serum 0.99 mg/dL (0.55-1.02); EST Glomerular Filtration Rate 59 mL/min (>60); Est Glom Filt Rate - Afr Amer 71 mL/min (>60); Estimated Creatinine Clearance 55.06 ml/min; Glucose 106 mg/dL (74-106); Potassium 3.9 mmol/L (3.5-5.1); Sodium Level 132 mmol/L (136-145)
== END 2023-11-23 18:17 | disposition home or self-care (01) ==
PROVIDERS: Emergency Provider Emergency Medicine; PCP Family Medicine; Visit Provider Emergency Medicine
DX: J20.5 Acute bronchitis due to respiratory syncytial virus (principal); J44.0 Chronic obstructive pulmonary disease with (acute) lower respiratory infection; I10 Essential (primary) hypertension; K21.9 Gastro-esophageal reflux disease without esophagitis; Z87.891 Personal history of nicotine dependence
CPT/HCPCS: 71045; 80048; 85025; 87631; 93005; 94640; 96374; 99283; A4216

== ENCOUNTER → 2023-12-06 | Outpatient (CLI) | payer MEDICARE, MEDICAID, SELFPAY ==
[2023-11-25 12:42] VITALS: BMI 41.0
--- NOTE | 2023-12-06 12:44 | RAD_ITS ---
STUDY: X-RAY CHEST REASON FOR EXAM: Female, 68 years old. productive cough TECHNIQUE: PA and lateral views of the chest. COMPARISON: 11/23/2023 FINDINGS: There is hyperinflation of the lungs consistent with chronic obstructive lung disease (COPD). There is no demonstrated pleural abnormality. Normal size heart. Normal mediastinum and magui. Normal visualized pulmonary arteries. Normal visualized aortic arch and descending thoracic aorta. Normal visualized thoracic spine. Normal visualized ribs, clavicles, and shoulders. There is no demonstrated abnormality of the visualized soft tissue structures of the upper abdomen. RAD/Chest PA and Lateral IMPRESSION: Emphysema without pneumonia or atelectasis. Electronically Signed: Margarito Butts MD at 20:43 EDT ,
== END | disposition home or self-care (01) ==
LOC: MTRAD 12:44
PROVIDERS: PCP Family Medicine; Referring Provider Family Medicine; Visit Provider Family Medicine
DX: J21.0 Acute bronchiolitis due to respiratory syncytial virus (principal)
CPT/HCPCS: 71046

== ENCOUNTER 2024-02-05 21:02 | Emergency (ER) | payer MEDICARE, MEDICAID, SELFPAY ==
[2023-11-25 12:42] VITALS: BMI 41.0
[2024-02-05] VITALS (15 sets, daily range): BP systolic 119–128; BP diastolic 68–88; PULSE 86–94; RESP 9–20; TEMP 36.6–36.7; O2SAT 92–96; BMI 41.1
--- NOTE | 2024-02-05 21:33 | EKG12_ITS ---
Test Reason : SOB Blood Pressure : / mmHG Vent. Rate : 092 BPM Atrial Rate : 092 BPM P-R Int : 148 ms QRS Dur : 074 ms QT Int : 332 ms P-R-T Axes : 060 033 045 degrees QTc Int : 410 ms Normal sinus rhythm Normal ECG Confirmed by Denzel Celestin ([id number]), city editor KINGS SAAVEDRA ([id number]) on 02/06/2024 11:30:58 AM Referred By: Confirmed By:Denzel Celestin
[2024-02-05] MEDS: Albuterol 2.5 MG/3 ML VIAL.NEB. INHALATION (21:36)
[2024-02-05] MEDS: Ipratropium/Albuterol Sulfate 3 ML AMPUL.NEB INHALATION (21:36)
[2024-02-05 21:52] LABS: Absolute Lymphocyte Count 1.39 X10^3/uL (0.83-4.51); Absolute Neutrophil Count 12.1 X10^3/uL (2.0-7.7); Basophil# 0.04 X10^3/uL; Basophil% 0.3 % (0-1); Eosinophil# 0.22 X10^3/uL; Eosinophils% 1.5 % (0-5); Hematocrit 40.6 % (37-47); Hemoglobin 12.7 g/dL (12.0-15.0); Lymphocyte # 1.39 X10^3/ul (0.83-4.51); Lymphocyte % 9.6 % (19-41); Mean Corp Hgb Conc 31.3 g/dL (32-36); Mean Corpuscular Hgb 24.5 pg (27.0-32.0); Mean Corpuscular Volume 78.2 fL (81-99); Mean Platelet Vol. 8.1 fl (6.2-12.0); Monocyte# 0.73 X10^3/uL; NRBC Flagged by Analyzer 0 % (0-5); Neutrophil # 12.06 X10^3/uL (2.7-7.7); Platelet Count 283 K/mm3 (150-450); RBC Distribution Width SD 50.4 fl (35.1-43.9); Red Blood Count 5.19 M/mm3 (4.2-5.4); White Blood Count 14.5 K/mm3 (4.4-11.0)
--- NOTE | 2024-02-05 22:00 | RAD_ITS ---
INDICATION: SOB and lt; cough EXAMINATION/TECHNIQUE: X-RAY - XR Chest 2 Views COMPARISON: 12/06/2023 FINDINGS: LINES/DEVICES: None. LUNGS: Interstitial opacities greater at the lung bases, not significantly changed. No consolidation. No pneumothorax. MEDIASTINUM: Aorta is atherosclerotic. CARDIAC SILHOUETTE: Not enlarged. BONES AND SOFT TISSUES: No acute abnormalities. RAD/Chest PA and Lateral IMPRESSION: Mild chronic interstitial changes. No acute findings. Electronically Signed: Ernestina Meng MD at 22:14 EDT ,
[2024-02-05 22:11] LABS: Anion Gap 5 (5-15); BUN 12 mg/dL (7-18); BUN/Creat Ratio 11.7 RATIO (10-20); Calcium,Total 9.6 mg/dL (8.5-10.1); Chloride 97 mmol/L (98-107); Creatinine, Serum 1.03 mg/dL (0.55-1.02); EST Glomerular Filtration Rate 56 mL/min (>60); Est Glom Filt Rate - Afr Amer 68 mL/min (>60); Estimated Creatinine Clearance 52.55 ml/min; Glucose 112 mg/dL (74-106); Potassium 4.4 mmol/L (3.5-5.1); Sodium Level 133 mmol/L (136-145); Troponin-I HS 6 pg/mL (3.0-54.0)
[2024-02-05 22:23] LABS: BNP,B-Type NATRIURETIC PEPTIDE 3.3 pg/mL (0-100)
--- NOTE | 2024-02-05 23:26 | ED.VIS.DYS ---
HPI History of Present Illness Chief Complaint: Shortness of Breath Narrative Narrative: Patient is a 68-year-old female with history of COPD on 3 L of oxygen at baseline presenting with worsening respiratory symptoms for the past few days. She notes that she was previously on a course of steroids about 2 weeks ago and finished it last week. She feels that she is been worsening since. She has had a cough has been productive of frothy sputum which is different than her normal cough and sputum production. She denies any swelling of her legs, fever or chills. She is not on any blood thinners. Denies any abdominal pain, nausea or vomiting. She denies chest pain but is complaining of chest tightness over the left side of her chest that is more of a pressure. No other complaints or concerns reported at this time. Patient lives at home and uses a walker at baseline. [facility] Medical History Gallstones BMI 40.0-44.9, adult Spinal stenosis Encounter for screening for malignant neoplasm of lung in current smoker with 30 pack year history or greater Tobacco use disorder, continuous Degenerative lumbar spinal stenosis Oral thrush Cough due to bronchospasm Dyspnea on exertion Arthritis Kidney stones GERD (gastroesophageal reflux disease) Hypertension Anxiety and depression COPD (chronic obstructive pulmonary disease) PTSD (post-traumatic stress disorder) Home Medications ?Medication ?Instructions ?Recorded ?Last Taken ?Type sertraline 100 mg tablet 200 mg PO DAILY depression 10/23/20 01/08/21 History aripiprazole 20 mg tablet 20 mg PO DAILY mood 01/06/21 01/08/21 History Pulse oximeter #1 ea 02/05/21 Unknown Rx blood pressure monitor (Blood #1 ea 02/05/21 Unknown Rx Pressure Kit) walker (Ultra-Light Rollator misc) #1 ea 03/24/21 Unknown Rx bupropion HCl 150 mg 24 hr tablet, 300 mg PO DAILY mood 05/05/21 Unknown History extended release amlodipine 5 mg tablet 5 mg PO DAILY blood pressure #90 01/14/22 Unknown Rx tabs underpads (Bed Underpads) #40 ea 02/16/22 Unknown Rx celecoxib 200 mg capsule 200 mg PO DAILY #60 caps 06/28/22 Unknown Rx esomeprazole magnesium 20 mg 20 mg PO DAILY gerd #90 caps 08/12/22 Unknown Rx capsule,delayed release lisinopril 20 1 tab PO DAILY blood pressure #90 08/12/22 Unknown Rx mg-hydrochlorothiazide 25 mg tablet tabs nebulizer inhalation 3XD 12/08/22 Unknown History budesonide 160 mcg-glycopyr 9 2 inh inhalation BID 03/24/23 Unknown History mcg-formot 4.8 mcg/actuation HFA inhaler (Breztri Aerosphere) levothyroxine 50 mcg tablet 50 mcg PO DAILY #30 tabs 08/09/23 Unknown Rx albuterol sulfate 90 mcg/actuation 2 puff inhalation Q4-6H PRN 12/01/23 Unknown History aerosol inhaler azithromycin 250 mg tablet 250 mg PO DAILY #4 TABLETS 02/05/24 Unknown Rx prednisone 20 mg tablet 40 mg (2 x 20 mg) PO DAILY #8 tabs 02/05/24 Unknown Rx Allergy/AdvReac Type Severity Reaction Status Date / Time Sulfa (Sulfonamide Allergy Vomiting Verified 02/05/24 21:04 Antibiotics) prednisone AdvReac Other Verified 02/05/24 21:04 Family History Mother Diabetes Hypertension Breast cancer Father Heart disease Hypertension Myocardial infarction, Onset Age: 46 Surgical History Hx of hernia repair Hx of cholecystectomy History of hand surgery History of hysterectomy History of History of D&C Social History household members: none Smoking Status: Former smoker quit date: 01/03/21 Tobacco: How many years used: 36 alcohol intake: never substance use type: does not use what type of physical activity do you participate in: none ROS ROS ED Constitutional Constitutional ED: Denies chills, fever(s) or sweats Eyes Eyes: Denies change in vision ENT ENT ED: Denies sore throat Cardiovascular Cardiovascular: Reports chest pain Respiratory/Chest Respiratory/Chest: Reports cough, dyspnea, dyspnea on exertion and sputum Gastrointestinal Gastrointestinal: Denies nausea or vomiting Musculoskeletal Musculoskeletal: Denies arthralgias or myalgias Integumentary Denies rash Neurologic Neurologic: Denies headache(s) Hematologic/Lymphatic Hematologic/Lymphatic: Denies easy bleeding or easy bruising EXAM Physical Exam Const Vital Signs: 02/05/24 21:02 02/05/24 21:08 02/05/24 21:12 Temperature 97.9 F 98.0 F Temperature Source Temporal Oral Pulse Rate 88 93 Respiratory Rate 20 H 20 H Respiratory Effort Short of Breath Labored Respiratory Pattern Tachypnea Blood Pressure 119/84 H 122/81 H Blood Pressure Mean 95 94 Pulse Ox 94 95 Oxygen Delivery Method Nasal Cannula Nasal Cannula Nasal Cannula Oxygen Flow Rate (L/min) 3 3 3 02/05/24 21:37 02/05/24 21:37 02/05/24 21:38 Temperature Temperature Source Pulse Rate 89 91 Respiratory Rate 16 12 Respiratory Effort Respiratory Pattern Blood Pressure Blood Pressure Mean Pulse Ox 94 Oxygen Delivery Method Nasal Cannula Oxygen Flow Rate (L/min) 3 02/05/24 21:45 02/05/24 21:54 02/05/24 22:00 Temperature 97.9 F Temperature Source Temporal Pulse Rate 93 93 Respiratory Rate 14 10 L Respiratory Effort Respiratory Pattern Blood Pressure 125/87 H 125/87 H 126/75 H Blood Pressure Mean 98 99 88 Pulse Ox 92 Oxygen Delivery Method Nasal Cannula Oxygen Flow Rate (L/min) 3 02/05/24 22:05 02/05/24 22:07 02/05/24 22:15 Temperature 98.1 F Temperature Source Oral Pulse Rate 94 92 91 Respiratory Rate 20 H 14 14 Respiratory Effort Respiratory Pattern Blood Pressure 128/71 H 128/71 H Blood Pressure Mean 90 89 Pulse Ox 96 94 92 Oxygen Delivery Method Nasal Cannula Nasal Cannula Oxygen Flow Rate (L/min) 3 3 02/05/24 22:30 02/05/24 22:45 02/05/24 23:00 Temperature Temperature Source Pulse Rate 86 Respiratory Rate 9 L 14 12 Respiratory Effort Respiratory Pattern Blood Pressure 119/68 120/76 124/74 H Blood Pressure Mean 84 91 89 Pulse Ox 93 Oxygen Delivery Method Nasal Cannula Oxygen Flow Rate (L/min) 3 Positive well nourished and well developed Constitutional Narrative: Chronically ill-appearing General Appearance ED: well developed and NAD HEENT Reports moist mucous membranes atraumatic Eyes PERRL Neck supple and no JVD Chest Wall Chest Narrative: No chest wall tenderness to palpation Resp normal respiratory effort Auscultation: rhonchi, wheezes and diminished lung sounds Cardio regular rate and regular rhythm GI non-tender and non-distended Extremity normal to inspection General Extremety ED: Negative for edema General Extremity: Negative for edema Neuro oriented x3 Sensorium / Orientation: alert Motor Exam: general weakness Psych mental status grossly normal Skin no wounds MDM MDM MDM Narrative Medical decision making narrative: Patient evaluated for worsening respiratory symptoms and chest tightness. Presentation highly consistent with respiratory infection whether it is a viral or bacterial/COPD exacerbation. Lower suspicion for ACS. Patient is not tachypneic or tachycardic and does not have increased O2 demands at this time. She has a mild leukocytosis of 14.5 which is nonspecific it is near her baseline and she is often on steroids. Hemoglobin is normal. CMP largely unremarkable. High-sensitivity troponin is 6 and EKG does not show any ischemic changes. I do not think there is a primary ACS event. Her BNP is 3.3 and clinically she does not appear fluid overloaded. I do not think this is acute/decompensated heart failure. Patient is given DuoNeb and albuterol in the emergency room with improvement of her symptoms. Chest x-ray, 2 views, reviewed by myself as well as radiology does not show any acute infiltrate or other acute process. Suspect this is a COPD exacerbation. Given the patient's degree of COPD will be placed on a course of azithromycin in addition to a prednisone burst. Patient would like to go home. She is ambulated in the ER on her 3 L and does well. She has 1 transient episode of desaturation to 89% but comes up quickly while still walking. Given that she does not have increased O2 demands, is not in any respiratory distress and does not appear dehydrated I think she is a good candidate for outpatient treatment. Patient is given return precautions. She is given first dose of prednisone and azithromycin in the emergency room. Has a follow-up appoint with her primary care doctor later this week (). Lab Data Attestation: I reviewed the patient's lab results. Labs: Laboratory Results - last 24 hr 02/05/24 21:30 WBC 14.5 H RBC 5.19 Hgb 12.7 Hct 40.6 MCV 78.2 L MCH 24.5 L MCHC 31.3 L RDW Std Deviation 50.4 H RDW Coeff of Ronny 18.0 H Plt Count 283 MPV 8.1 Immature Gran % (Auto) 0.600 Neut % (Auto) 83.0 H Lymph % (Auto) 9.6 L Corson % (Auto) 5.0 Eos % (Auto) 1.5 Baso % (Auto) 0.3 Absolute Neuts (auto) 12.1 H Absolute Lymphs (auto) 1.39 Nucleated RBC % 0 Sodium 133 L Potassium 4.4 Chloride 97 L Carbon Dioxide 31.0 Anion Gap 5 BUN 12 Creatinine 1.03 H Estim Creat Clear Calc 52.55 Est GFR (MDRD) Af Amer 68 Est GFR (MDRD) Non-Af 56 L BUN/Creatinine Ratio 11.7 Glucose 112 H Calcium 9.6 Troponin I High Sens 6 B-Natriuretic Peptide 3.3 Radiography Chest X-Ray - ED: 2 View, Read by ED Physician, Read by Radiologist, No Acute Disease and No Infiltrates Diagnostic Testing: Clinical Impression(s) from Imaging Studies Chest X-Ray 02/05/24 22:00 IMPRESSION: Mild chronic interstitial changes. No acute findings. Electronically Signed: Ernestina Meng MD at 22:14 EDT Reading Location ID and State: [facility] / [place] Tel , Service support , Rhythm Strip Rhythm Strip: Sinus Rhythm Rate: 92 Ectopy: None EKG Initial EKG: Attestation: I personally reviewed and interpreted this EKG as follows: Interpretation: Sinus Rhythm Comments: Normal sinus rhythm at a rate of 92 bpm Normal axis Normal intervals Normal ST segments Prior EKG tracings: available for review Prior: Unchanged Discharge Plan Triage Chief Complaint: Shortness of Breath ED Provider: Jessica Reid Dx/Rx/DC Orders Clinical Impression: COPD exacerbation Instructions: ED COPD Flare Prescriptions: New prednisone 20 mg tablet 40 mg PO DAILY Qty: 8 0RF azithromycin 250 mg tablet 250 mg PO DAILY Qty: 4 0RF No Action nebulizer inhalation 3XD albuterol sulfate 90 mcg/actuation HFA aerosol inhaler 2 puff inhalation Q4-6H PRN sertraline 100 mg tablet 200 mg PO DAILY aripiprazole 20 mg tablet 20 mg PO DAILY bupropion HCl 150 mg tablet extended release 24 hr 300 mg PO DAILY Breztri Aerosphere 160-9-4.8 mcg/actuation HFA aerosol inhaler 2 inh inhalation BID (DME) blood pressure monitor [Blood Pressure Kit] Kit See Rx Instructions .ROUTE .MEDSUPPLY Qty: 1 0RF Rx Instructions: Check daily and as needed (DME) Pulse oximeter See Rx Instructions .Route .MEDSUPPLY Qty: 1 0RF Rx Instructions: Monitor daily or as needed (DME) Ultra-Light Rollator Misc See Rx Instructions .ROUTE .MEDSUPPLY Qty: 1 0RF Rx Instructions: As directed amlodipine 5 mg tablet 5 mg PO DAILY Qty: 90 3RF (DME) underpads [Bed Underpads] Pad See Rx Instructions .Route Qty: 40 6RF Rx Instructions: R32. celecoxib 200 mg capsule 200 mg PO DAILY Qty: 60 0RF esomeprazole magnesium 20 mg capsule,delayed release(DR/EC) 20 mg PO DAILY Qty: 90 3RF lisinopril-hydrochlorothiazide 20-25 mg tablet 1 tab PO DAILY Qty: 90 3RF levothyroxine 50 mcg tablet 50 mcg PO DAILY Qty: 30 2RF Primary Care Provider: Tre Weston Referrals: Tre Weston MD [Primary Care Provider] - Print Language: Tamazight Disposition Disposition: Home, Self Care
[2024-02-05] MEDS: predniSONE 20 MG Tablet 60 MG PO (23:41)
[2024-02-05] MEDS: Azithromycin 250 MG Tablet 500 MG PO (23:42)
== END 2024-02-06 00:02 | disposition home or self-care (01) ==
PROVIDERS: Emergency Provider Emergency Medicine; PCP Family Medicine; Visit Provider Emergency Medicine
DX: J44.1 Chronic obstructive pulmonary disease with (acute) exacerbation (principal); I10 Essential (primary) hypertension; K21.9 Gastro-esophageal reflux disease without esophagitis; Z99.81 Dependence on supplemental oxygen; Z79.899 Other long term (current) drug therapy; Z87.891 Personal history of nicotine dependence
CPT/HCPCS: 71046; 80048; 83880; 84484; 85025; 87631; 93005; 94640; 99285

== ENCOUNTER → 2024-03-09 | Outpatient (CLI) | payer MEDICARE, MEDICAID, SELFPAY ==
[2023-11-25 12:42] VITALS: BMI 41.0
--- NOTE | 2024-03-09 11:41 | RAD_ITS ---
STUDY: X-RAY - LUMBAR SPINE REASON FOR EXAM: Female, 68 years old. BACK PAIN TECHNIQUE: 4 view(s) of the lumbar spine were obtained. COMPARISON: 01/03/2022 FINDINGS: Normal lumbar lordosis. Mild levoscoliosis centered at L2. 8 mm of anterolisthesis of L4 and L5. There is multilevel endplate spondylosis of the lumbar vertebrae. There is multi-level degenerative disc disease with multi-level disc space narrowing. There is multilevel facet hypertrophy. The soft tissue structures are unremarkable. RAD/L/S Spine Min 4 Views IMPRESSION: Mild levoscoliosis with degenerative disc disease. MRI may be useful for Electronically Signed: Margarito Butts MD at 13:09 EDT ,
== END | disposition home or self-care (01) ==
LOC: MTRAD 11:40
PROVIDERS: PCP Family Medicine; Referring Provider Family Medicine; Visit Provider Family Medicine
DX: M54.9 Dorsalgia, unspecified (principal)
CPT/HCPCS: 72110

== ENCOUNTER → 2024-04-13 | Outpatient (CLI) | payer MEDICARE, MEDICAID, SELFPAY ==
[2023-11-25 12:42] VITALS: BMI 41.0
--- NOTE | 2024-04-13 17:26 | RAD_ITS ---
INDICATION: RIght hip injury EXAMINATION/TECHNIQUE: X-RAY - XR Hip Unilateral with Pelvis when performed; 2-3 Views COMPARISON: No relevant prior comparison study available FINDINGS: PELVIC BONES: No displaced fracture, destructive or sclerotic lesions. Note that overlapping bowel shadows may however obscure fine detail. Sacroiliac joints are unremarkable. No widening of the pubic symphysis. Pelvic stimulator is noted in normal position. HIPS: The articular structures are unremarkable. No displaced fracture seen in this frontal view. SOFT TISSUES: No soft tissue swelling or gas. RAD/HIP, UNI W/ Pelvis 2-3 Views IMPRESSION: 1. No evidence of displaced pelvic or hip fracture. 2. Pelvic ring is intact. 3. Pelvic stimulator is present. Electronically Signed: Margarito Wagner MD at 18:32 EDT ,
== END | disposition home or self-care (01) ==
LOC: MTRAD 17:25
PROVIDERS: PCP Family Medicine; Referring Provider Family Medicine; Visit Provider Family Medicine
DX: M25.559 Pain in unspecified hip (principal)
CPT/HCPCS: 73502

== ENCOUNTER → 2024-05-08 | Outpatient (CLI) | payer MEDICARE, MEDICAID, SELFPAY ==
[2024-04-16 11:16] VITALS: BMI 41.0
[2024-05-08 16:02] LABS: Vitamin D,25 Hydroxy 23.7 ng/mL
[2024-05-08 16:09] LABS: Thyroid Stim Hormone (TSH) 0.424 uIU/mL (0.358-3.740)
== END | disposition home or self-care (01) ==
LOC: MTLAB 11:14
PROVIDERS: PCP Family Medicine; Referring Provider Family Medicine; Visit Provider Family Medicine
DX: M25.559 Pain in unspecified hip (principal)
CPT/HCPCS: 36415; 82306; 84443

== ENCOUNTER → 2024-05-25 | Outpatient (CLI) | payer MEDICARE, MEDICAID, SELFPAY ==
[2024-04-16 11:16] VITALS: BMI 41.0
[2024-05-25 12:44] LABS: Hematocrit 39.7 % (37-47); Hemoglobin 12.1 g/dL (12.0-15.0); Mean Corp Hgb Conc 30.5 g/dL (32-36); Mean Corpuscular Hgb 24.9 pg (27.0-32.0); Mean Corpuscular Volume 81.9 fL (81-99); Mean Platelet Vol. 8.1 fl (6.2-12.0); Platelet Count 259 K/mm3 (150-450); RBC Distribution Width CV 16.4 % (11.6-14.6); RBC Distribution Width SD 49.1 fl (35.1-43.9); Red Blood Count 4.85 M/mm3 (4.2-5.4); White Blood Count 11.3 K/mm3 (4.4-11.0)
[2024-05-25 13:51] LABS: ALB/GLOB Ratio 0.9 RATIO (0.9-2.4); AST(SGOT) 21 U/L (15-37); Alanine Aminotransfer ALT/SGPT 38 U/L (13-56); Albumin, Serum 3.3 g/dL (3.2-5.0); Alkaline Phosphatase 142 U/L (45-117); Anion Gap 7 (5-15); BUN 15 mg/dL (7-18); BUN/Creat Ratio 15.1 RATIO (10-20); Calcium,Total 10.2 mg/dL (8.5-10.1); Chloride 97 mmol/L (98-107); EST Glomerular Filtration Rate 59 mL/min (>60); Est Glom Filt Rate - Afr Amer 71 mL/min (>60); Globulin 3.7 g/dL (2.2-4.2); Glucose 80 mg/dL (74-106); Potassium 4.9 mmol/L (3.5-5.1); Sodium Level 132 mmol/L (136-145)
== END | disposition home or self-care (01) ==
PROVIDERS: PCP Family Medicine; Visit Provider Family Medicine
DX: R25.2 Cramp and spasm (principal)
CPT/HCPCS: 36415; 80053; 84443; 85027

== ENCOUNTER → 2024-06-15 | Outpatient (CLI) | payer MEDICARE, MEDICAID, SELFPAY ==
[2024-04-16 11:16] VITALS: BMI 41.0
== END | disposition home or self-care (01) ==
LOC: PSN 08:06
PROVIDERS: PCP Family Medicine; Referring Provider Family Medicine; Visit Provider Family Medicine
DX: R25.1 Tremor, unspecified (principal)
CPT/HCPCS: 95819

== ENCOUNTER 2024-06-21 09:30 | Outpatient (RCR) | payer MEDICARE, MEDICAID, SELFPAY ==
[2024-04-16 11:16] VITALS: BMI 41.0
--- NOTE | 2024-04-27 15:23 | HP.PTEVAL ---
Patient's Visit Information Visit Information Visit Information: MAX TOM is a 68 year old F referred to Physical Therapy by Dr. Chang Perez DO with a diagnosis of ITB syndrome, bursitis. Date of Evaluation: 04/27/24 Physical Therapist: Kevin Muñoz, DPT, OCS, CSCS Visit Plan Frequency: 2-3x /Week Duration: 4-6 Weeks Plan: 2-3x/week x 3-6. US to R pirifomris area, rollout and stretch R piriformis and ITB and HS. strength of hips to tolerance and HEP progression. TENS if covered with ice. IE: Educae on HEP of: hip abd/add, hip flexion marching adn walking with wh walker 10-20 feet every hour or so. Consider water if not improving. Subjective Subjective: R sided hip pain from bursitis. Has hurt for a couple weeks 2-3. Back is bad to start with. Doctors with Dr. Weston and is on gabapentin for that. Started that 3 weeks ago. Has OA and crumbling discs. Walking makes it worse. Walks around house with rollator and it hurts. Sleep is interrupted. It wakes me up, sleeps on either side. Can't sleep on right side right now. Not employed. Activities:putzing around the house. Feels better sitting. basic ADLs getting done and they hurt. No regular exercise. Plays on phone adn watches TV, washes dishes, folds laundry. Pain r hip: Pain Intensity (Out of 10): 6 Pain Intensity Range: 4, 7 and 9 Objective Objective: Pushed back to PT in wheelchair, very stagnant and hard for her to move due to weakness and pain. Is ablke to transfer bed and chair I but labored and painful on R hip laterally. Tender to the touch moderately in R piriformis, GT and slightly in ITB. Not on L. walks with R antalgia and hesitancy with wh walker only 25 feet today requesting to stop due to pain. Hip AROM is limited in extension and abd due to pain, flexion also hurts. WFL ROM, no pain with PROM rotations. - ANDREA, - FADDIR. knee and ankle aROM stiff but funcitonal and not painful. reflexes 1/3 patella adn achilles Sensation is WNL to gross light toouch B LE. strength hips 3 abd and ext, 3 flexion R vs 3+ L, painful on R. knee flexion/ext 3+ B without pain. ankles 4-/5 B. Flexibility is max limited in HS at -35 90/90 test.quad not tested, ITB tight B. Balance/Special Test Scores Lower Extremity Functional Score: 2 Goals Goal 1:: stand and walk without pain >2/10 Goal Time Frame: 4-6 Weeks Goal 2:: Feel 75% better in overall mobility Goal Time Frame: 4-6 Weeks Goal 3:: LEFS score 25 Goal Time Frame: 4-6 Weeks Goal 4:: I appropriate management of sedentray lifestyle. Goal Time Frame: 4-6 Weeks Rehabilitation Potential Physical Therapy Diagnosis: pain limiting movement of hip limiting mobility and funciton Rehabilitation Potential: Fair Anticipated Interventions Patient/Client Instruction: Educate patient on: Condition and Plan of Care For the Purpose of:: To decrease pain, To increase ROM, To improve muscle performance and motor function, To increase tolerance to activity/condition/position, To improve ability of physical actions for home/community/work/leisure and To improve gait and locomotor functions Therapeutic Exercise to Include: Strength training, Postural training, Flexibilty training, Passive ROM and Active ROM For the Purpose of:: To decrease pain, To increase ROM, To improve nutrient delivery to tissue, To increase tolerance to activity/condition/position and To improve gait and locomotor functions Manual Therapy Techniques to Include: Mobilization, Passive ROM and Soft tissue mobilization For the Purpose of:: To decrease pain, To increase ROM, To improve nutrient delivery to tissue, To increase tolerance to activity/condition/position and To improve gait and locomotor functions Text: Thank you for the opportunity to evaluate your patient. For Medicare and Medicare HMO plans, please review the plan of care and approve it. It will need to be FAXED BACK to us at [phone] for Medicare purposes. For Medicare only, by signing this I certify the plan of care. Please let me know if there are questions or concerns regarding this plan of care. Physician Signature: Date:
--- NOTE | 2024-06-21 10:08 | HP.PTDCSUM ---
Discharge Summary D/C summary: It has been my pleasure to treat MAX TOM referred by Dr. Chang Perez DO, with the diagnosis of ITB syndrome, bursitis for a total of 10 visit(s). Discharge Date: 06/21/24 Please see the following information for a summary of their discharge status. Subjective Subjective: Today is a rough day b/c the weather has changed. Injection really helped. It is much better. Not much pain anymore. in hip or leg, knee can hurt at times. Feels good with the exercises and can continue at home standing and sitting. Walking a lot more(using wh walker). Cooked a whole meal yesterday. Ready to be done and work at it on her own. Will continue to do HEP and f/u with doctor regarding knee pain Pain r hip: Pain Intensity (Out of 10): 0 R knee: Pain Intensity (Out of 10): 3 Overall Improvement % Improvement: 80 Objective Objective/Function: 91% spo2 and 93 HR today at rest which is normal for her on 3 l/min o2 Walking with wh walker still hunched over slightly but no antalgia. Trasnfers I out of chair with UE. Happy with improvements and willing to continue via HEP Goals Goal 1:: stand and walk without pain >2/10 Goal Progress: Goal Met Goal 2:: Feel 75% better in overall mobility Goal Progress: Goal Met Goal 3:: LEFS score 25 Goal Progress: Not Progressing Goal 4:: I appropriate management of sedentray lifestyle. Goal Progress: Goal Met Plan Plan: d/c D/C Information d/c sentence: If there are questions or concerns regarding this patient's physical therapy, please feel free to call me at [phone]. Thank you for the referral of this patient. Sincerely, Kevin Muñoz, DPT, OCS, CSCS Balance/Gait/Functional tests Balance/Special Test Scores Lower Extremity Functional Score: 12 Improvement % Improvement: 80
== END 2024-06-21 19:00 | disposition home or self-care (01) ==
LOC: PT 09:30
PROVIDERS: PCP Family Medicine; Referring Provider Orthopaedic Surgery; Visit Provider Orthopaedic Surgery
DX: M76.30 Iliotibial band syndrome, unspecified leg (principal); M70.71 Other bursitis of hip, right hip
CPT/HCPCS: 97110; 97162; 97530

== ENCOUNTER 2024-06-21 18:16 | Emergency (ER) | payer MEDICARE, MEDICAID, SELFPAY ==
[2024-04-16 11:16] VITALS: BMI 41.0
[2024-06-21] VITALS (9 sets, daily range): BP systolic 132–140; BP diastolic 76–88; PULSE 86–97; RESP 15–40; TEMP 36.7; O2SAT 92–95; BMI 42.0
--- NOTE | 2024-06-21 18:21 | EKG12_ITS ---
Test Reason : DYSRHYTHMIA Blood Pressure : / mmHG Vent. Rate : 094 BPM Atrial Rate : 094 BPM P-R Int : 152 ms QRS Dur : 078 ms QT Int : 332 ms P-R-T Axes : 053 039 059 degrees QTc Int : 415 ms Normal sinus rhythm Normal ECG Confirmed by DUKE POWERS, ROBE ([id number]), technical editor NOAH CHAPA ([id number]) on 06/22/2024 9:59:34 AM Referred By: Confirmed By:ROBE WALL MD
[2024-06-21 18:31] LABS: Absolute Lymphocyte Count 0.65 X10^3/uL (0.83-4.51); Absolute Neutrophil Count 14.7 X10^3/uL (2.0-7.7); Basophil# 0.06 X10^3/uL; Basophil% 0.4 % (0-1); Eosinophil# 0.04 X10^3/uL; Eosinophils% 0.2 % (0-5); Hematocrit 36.8 % (37-47); Hemoglobin 11.8 g/dL (12.0-15.0); Lymphocyte # 0.65 X10^3/ul (0.83-4.51); Lymphocyte % 3.9 % (19-41); Mean Corp Hgb Conc 32.1 g/dL (32-36); Mean Corpuscular Hgb 25.8 pg (27.0-32.0); Mean Corpuscular Volume 80.3 fL (81-99); Mean Platelet Vol. 7.9 fl (6.2-12.0); Monocyte# 0.38 X10^3/uL; Monocyte% 2.3 % (0-10); NRBC Flagged by Analyzer 0 % (0-5); Neutrophil % 89.1 % (47-70); Platelet Count 225 K/mm3 (150-450); RBC Distribution Width CV 16.3 % (11.6-14.6); RBC Distribution Width SD 46.8 fl (35.1-43.9); Red Blood Count 4.58 M/mm3 (4.2-5.4); White Blood Count 16.5 K/mm3 (4.4-11.0)
[2024-06-21 18:51] LABS: Anion Gap 6 (5-15); BUN 20 mg/dL (7-18); Calcium,Total 9.1 mg/dL (8.5-10.1); Chloride 91 mmol/L (98-107); Creatinine, Serum 1.05 mg/dL (0.55-1.02); EST Glomerular Filtration Rate 55 mL/min (>60); Est Glom Filt Rate - Afr Amer 67 mL/min (>60); Glucose 206 mg/dL (74-106); Potassium 4.2 mmol/L (3.5-5.1); Sodium Level 127 mmol/L (136-145); Troponin-I HS (w/2H Reflex) 9 pg/mL (3.0-54.0)
--- NOTE | 2024-06-21 19:15 | RAD_ITS ---
EXAM: XR CHEST, 1 VIEW CLINICAL INDICATION: chest pain TECHNIQUE: Frontal view of the chest. COMPARISON: 02/05/2024 FINDINGS: LUNGS AND PLEURAL SPACES: There are interstitial opacities in the lower lobes. There is no focal consolidation or effusion. No pneumothorax. HEART: Unremarkable. Cardiac silhouette not enlarged. MEDIASTINUM: Central airways and mediastinal contour are unremarkable. BONES/JOINTS: See above. SOFT TISSUES: Unremarkable. RAD/Chest 1 View (Portable) IMPRESSION: Bilateral interstitial opacities which may represent scar. There is no acute pulmonary abnormality. Electronically Signed: Hoang Osuna MD at 19:58 EDT ,
--- NOTE | 2024-06-21 20:27 | ED.VIS.DYS ---
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 Yao at the beginning of this and has been put on antibiotics and prednisone, she has been on that for a week. She started tapering the prednisone maybe 3 days ago. Last night and today she has been more short of breath/wheezy than she had been, without any other new symptoms. She used her albuterol inhaler and nebulizer machine at home, it helped temporarily and partially, but she is still dyspneic and at physical therapy they told her her pulse ox was 89% while on her home oxygen, which is why she presents here to the ER tonight. She denies any new orthopnea or leg edema or focal leg pain. No chest pain. No fevers or chills. No hemoptysis. [facility] Medical History Gallstones BMI 40.0-44.9, adult Spinal stenosis Encounter for screening for malignant neoplasm of lung in current smoker with 30 pack year history or greater Tobacco use disorder, continuous Degenerative lumbar spinal stenosis Oral thrush Cough due to bronchospasm Dyspnea on exertion Arthritis Kidney stones GERD (gastroesophageal reflux disease) Hypertension Anxiety and depression COPD (chronic obstructive pulmonary disease) PTSD (post-traumatic stress disorder) Home Medications ?Medication ?Instructions ?Recorded ?Last Taken ?Type sertraline 100 mg tablet 200 mg PO DAILY depression 10/23/20 01/08/21 History aripiprazole 20 mg tablet 20 mg PO DAILY mood 01/06/21 01/08/21 History Pulse oximeter #1 ea 02/05/21 Unknown Rx blood pressure monitor (Blood #1 ea 02/05/21 Unknown Rx Pressure Kit) walker (Ultra-Light Rollator misc) #1 ea 03/24/21 Unknown Rx bupropion HCl 150 mg 24 hr tablet, 300 mg PO DAILY mood 05/05/21 Unknown History extended release amlodipine 5 mg tablet 5 mg PO DAILY blood pressure #90 01/14/22 Unknown Rx tabs underpads (Bed Underpads) #40 ea 02/16/22 Unknown Rx esomeprazole magnesium 20 mg 20 mg PO DAILY gerd #90 caps 08/12/22 Unknown Rx capsule,delayed release lisinopril 20 1 tab PO DAILY blood pressure #90 08/12/22 Unknown Rx mg-hydrochlorothiazide 25 mg tablet tabs nebulizer inhalation 3XD 12/08/22 Unknown History budesonide 160 mcg-glycopyr 9 2 inh inhalation BID 03/24/23 Unknown History mcg-formot 4.8 mcg/actuation HFA inhaler (Breztri Aerosphere) levothyroxine 50 mcg tablet 50 mcg PO DAILY #30 tabs 08/09/23 Unknown Rx albuterol sulfate 90 mcg/actuation 2 puff inhalation Q4-6H PRN 12/01/23 Unknown History aerosol inhaler azithromycin 250 mg tablet 250 mg PO DAILY #4 TABLETS 02/05/24 Unknown Rx gabapentin 600 mg tablet 600 mg PO TID 04/18/24 Unknown History pregabalin 150 mg capsule 150 mg PO BID 04/18/24 Unknown History prednisone 10 mg tablet 10 mg PO UD #30 tabs 06/21/24 Unknown Rx Allergy/AdvReac Type Severity Reaction Status Date / Time Sulfa (Sulfonamide Allergy Vomiting Verified 06/21/24 18:19 Antibiotics) prednisone AdvReac Other Verified 06/21/24 18:19 Family History Mother Diabetes Hypertension Breast cancer Father Heart disease Hypertension Myocardial infarction, Onset Age: 46 Surgical History Hx of hernia repair Hx of cholecystectomy History of hand surgery History of hysterectomy History of History of D&C Social History household members: none Smoking Status: Former smoker quit date: 01/03/21 Tobacco: How many years used: 36 alcohol intake: never substance use type: does not use what type of physical activity do you participate in: none ROS ROS ED Constitutional Constitutional ED: Denies chills or fever(s) Eyes Eyes: Denies change in vision or diplopia ENT ENT ED: Reports nasal congestion, rhinorrhea and sinus pressure; Denies sore throat Cardiovascular Cardiovascular: Denies chest pain, orthopnea or palpitations Respiratory/Chest Respiratory/Chest: Reports cough, dyspnea and dyspnea on exertion; Denies orthopnea or sputum Gastrointestinal Gastrointestinal: Denies abdominal pain, diarrhea, nausea or vomiting Genitourinary Genitourinary ED: Denies dysuria or hematuria Musculoskeletal Musculoskeletal: Denies back pain or neck pain Integumentary Denies abscess or rash Neurologic Neurologic: Denies headache(s), paresthesias or weakness Psychiatric Psychiatric: Denies anxiety or suicidal thoughts EXAM Physical Exam Const Vital Signs: 06/21/24 18:16 06/21/24 19:19 06/21/24 19:22 Temperature 98.1 F Temperature Source Oral Pulse Rate 97 94 Respiratory Rate 20 H 40 H Respiratory Effort Respiratory Pattern Blood Pressure 140/84 H 133/88 H Blood Pressure Mean 102 103 Pulse Ox 92 94 Oxygen Delivery Method Nasal Cannula Nasal Cannula Oxygen Flow Rate (L/min) 3 3 06/21/24 19:40 06/21/24 20:00 06/21/24 20:40 Temperature Temperature Source Pulse Rate 88 86 Respiratory Rate 15 15 Respiratory Effort Short of Breath Respiratory Pattern Tachypnea Normal Blood Pressure 133/78 H Blood Pressure Mean 96 Pulse Ox Oxygen Delivery Method Nasal Cannula Oxygen Flow Rate (L/min) 06/21/24 21:00 Temperature Temperature Source Pulse Rate 93 Respiratory Rate 18 Respiratory Effort Respiratory Pattern Blood Pressure 132/85 H Blood Pressure Mean 100 Pulse Ox 95 Oxygen Delivery Method Nasal Cannula Oxygen Flow Rate (L/min) 3 Positive well nourished, well developed and obese General Appearance ED: well developed and NAD Nutritional Appearance: obese HEENT Reports moist mucous membranes normocephalic and atraumatic Eyes PERRL and EOMs intact bilaterally Neck full ROM, supple and no JVD Chest Wall Chest Narrative: Nontender no subcutaneous emphysema Resp normal respiratory effort Resp Narrative: Diffuse expiratory wheezes, no rales or rhonchi. Breath sounds equal bilaterally. Effort and Inspection: able to speak in complete sentences Cardio regular rate, regular rhythm and no murmurs GI non-tender and non-distended Auscultation: normoactive bowel sounds Palpation: soft Back/Spine no CVA tenderness General Back: other FROM Extremity normal to inspection General Extremety ED: Negative for edema, pulses abnormal or tenderness General Extremity: Negative for edema or pulses abnormal Neuro oriented x3, CN's II-XII intact bilaterally and no sensory deficits noted Sensorium / Orientation: awake and alert Motor Exam: strength 5/5 throughout Psych mental status grossly normal Skin no rashes or lesions noted and no wounds MDM MDM MDM Narrative Medical decision making narrative: Symptoms compatible with an exacerbation of COPD. Her cardiopulmonary workup here is largely unremarkable including her EKG and 2 sequential troponin measurements. She has a leukocytosis but this is probably related to the fact she has been on prednisone for most a week. 1 view chest x-ray on my interpretation shows no acute infiltrates although she does have haziness in the bases. According to radiology this is chronic interstitial and similar to her old. I did not do a COVID swab since she has been ill for a week and really does not have a whole lot of coughing. She still on the antibiotic she thinks it is doxycycline. This is the third day of her decreased dose of prednisone 20 mg, she started on 40, she has 1 day of 20 mg left. We gave her some nebulizer treatments, and after that she was feeling much better and her pulse ox was better. Even with ambulation she did not go below 91% and she felt like she could walk better than she was before. I offered admission she declines and really wants to go home which I think is perfectly reasonable. She is sitting at the bedside drinking coffee on reevaluation thanking's because she is feeling better. I think bumping her prednisone back up to 40 mg is reasonable, and having her start to taper over, just extending her course of prednisone temporarily. She is comfortable with that plan, discussed follow-up with Dr. Yao if she needs or return to the ER if worse. She is comfortable with that as well. Lab Data Attestation: I reviewed the patient's lab results. Labs: Laboratory Results - last 24 hr 06/21/24 06/21/24 18:25 20:42 WBC 16.5 H RBC 4.58 Hgb 11.8 L Hct 36.8 L MCV 80.3 L MCH 25.8 L MCHC 32.1 RDW Std Deviation 46.8 H RDW Coeff of Ronny 16.3 H Plt Count 225 MPV 7.9 Immature Gran % (Auto) 4.100 H Neut % (Auto) 89.1 H Lymph % (Auto) 3.9 L [place] % (Auto) 2.3 Eos % (Auto) 0.2 Baso % (Auto) 0.4 Absolute Neuts (auto) 14.7 H Absolute Lymphs (auto) 0.65 L Nucleated RBC % 0 Sodium 127 L Potassium 4.2 Chloride 91 L Carbon Dioxide 30.0 Anion Gap 6 BUN 20 H Creatinine 1.05 H Est GFR (MDRD) Af Amer 67 Est GFR (MDRD) Non-Af 55 L BUN/Creatinine Ratio 19.0 Glucose 206 H Calcium 9.1 Troponin I High Sens 9 7 Radiography Diagnostic Testing: Clinical Impression(s) from Imaging Studies Chest X-Ray 06/21/24 19:15 IMPRESSION: Bilateral interstitial opacities which may represent scar. There is no acute pulmonary abnormality. Electronically Signed: Hoang Osuna MD at 19:58 EDT , Rhythm Strip Rhythm Strip: Sinus Rhythm Rate: 94 Ectopy: None EKG Initial EKG: Attestation: I personally reviewed and interpreted this EKG as follows: Interpretation: Sinus Rhythm and No Acute Injury Pattern Comments: Normal EKG Discharge Plan Triage Chief Complaint: Shortness of Breath ED Provider: Andry Fernandez Dx/Rx/DC Orders Clinical Impression: COPD exacerbation, Mixed obstructive and restrictive ventilatory defect Instructions: COPD Quit Smoking Prescriptions: New prednisone 10 mg tablet 10 mg PO UD Qty: 30 0RF Rx Instructions: Take 4 tablets daily for 3 days, then 3 daily for 3 days, then 2 daily for 3 days, then 1 a day for 3 days No Action nebulizer inhalation 3XD albuterol sulfate 90 mcg/actuation HFA aerosol inhaler 2 puff inhalation Q4-6H PRN gabapentin 600 mg tablet 600 mg PO TID pregabalin 150 mg capsule 150 mg PO BID sertraline 100 mg tablet 200 mg PO DAILY aripiprazole 20 mg tablet 20 mg PO DAILY bupropion HCl 150 mg tablet extended release 24 hr 300 mg PO DAILY Breztri Aerosphere 160-9-4.8 mcg/actuation HFA aerosol inhaler 2 inh inhalation BID azithromycin 250 mg tablet 250 mg PO DAILY Qty: 4 0RF (DME) blood pressure monitor [Blood Pressure Kit] Kit See Rx Instructions .ROUTE .MEDSUPPLY Qty: 1 0RF Rx Instructions: Check daily and as needed (DME) Pulse oximeter See Rx Instructions .Route .MEDSUPPLY Qty: 1 0RF Rx Instructions: Monitor daily or as needed (DME) Ultra-Light Rollator Misc See Rx Instructions .ROUTE .MEDSUPPLY Qty: 1 0RF Rx Instructions: As directed amlodipine 5 mg tablet 5 mg PO DAILY Qty: 90 3RF (DME) underpads [Bed Underpads] Pad See Rx Instructions .Route Qty: 40 6RF Rx Instructions: R32. esomeprazole magnesium 20 mg capsule,delayed release(DR/EC) 20 mg PO DAILY Qty: 90 3RF lisinopril-hydrochlorothiazide 20-25 mg tablet 1 tab PO DAILY Qty: 90 3RF levothyroxine 50 mcg tablet 50 mcg PO DAILY Qty: 30 2RF Primary Care Provider: Tre Weston Referrals: Tre Weston MD [Primary Care Provider] - Grace Yao MD [Non-Staff] - 3-5 Days if not improving Activity Restrictions/Additional Instructions: Start the new prednisone prescription tomorrow, and replace your other one with this one. Continue taking your antibiotic as prescribed until completed. Continue using your nebulizer treatments at home as needed for wheezing/shortness of breath. If you feel you are in respiratory distress and you are getting worse, you may return to the ER for reevaluation at any time. Print Language: Macedonian Disposition Disposition: Home, Self Care
[2024-06-21 20:28] LABS: Reflex Troponin-HS? (from REC) Y
[2024-06-21] MEDS: Ipratropium/Albuterol Sulfate 3 ML AMPUL.NEB INHALATION (20:38)
[2024-06-21] MEDS: Albuterol 2.5 MG/3 ML VIAL.NEB. INHALATION ×2 (20:39)
[2024-06-21 21:13] LABS: Troponin-I HS 7 pg/mL (3.0-54.0)
[2024-06-21] MEDS: predniSONE 20 MG Tablet PO (22:30)
== END 2024-06-21 22:36 | disposition home or self-care (01) ==
PROVIDERS: Emergency Provider Emergency Medicine; PCP Family Medicine; Visit Provider Emergency Medicine
DX: J44.1 Chronic obstructive pulmonary disease with (acute) exacerbation (principal); I10 Essential (primary) hypertension; J32.9 Chronic sinusitis, unspecified; F32.A Depression, unspecified; F41.9 Anxiety disorder, unspecified; Z99.81 Dependence on supplemental oxygen; Z87.891 Personal history of nicotine dependence
CPT/HCPCS: 71045; 80048; 84484; 85025; 93005; 94640; 99285; A4216

== ENCOUNTER 2024-07-02 14:13 | Emergency (ER) | payer MEDICARE, MEDICAID, SELFPAY ==
[2024-04-16 11:16] VITALS: BMI 41.0
[2024-07-02 14:14] VITALS: BP 100/63; PULSE 101; RESP 18; TEMP 36; O2SAT 98
[2024-07-02 14:16] VITALS: BMI 45.6
--- NOTE | 2024-07-02 14:30 | CT_ITS ---
STUDY: CT BRAIN WITHOUT CONTRAST REASON FOR EXAM: Female, 68 years old. History of a fall. RADIATION DOSAGE (If Supplied By Facility): CTDIvol = ( 44.99 ) mGy, DLP = ( 779.24 ) mGycm TECHNIQUE: Transaxial CT imaging of the brain was performed without administration of intravenous contrast material. Individualized dose optimization techniques were used for this CT. COMPARISON: Comparison is made with prior study dated 10/17/2022. FINDINGS: Normal soft tissue structures. There is hyperostosis frontalis internus. There is mild cerebral atrophy with widening of the extra-axial spaces and ventricular dilatation. There are areas of decreased attenuation within the white matter tracts of the supratentorial brain, consistent with microvascular disease changes. There are small punctate calcifications of the basal ganglia which are seen in the aging brain as a normal variant. Normal brainstem. Normal cerebellum. There is no intracranial hemorrhage. There are no findings of an acute ischemic infarction. Atherosclerotic calcification of the cavernous portions of the internal carotid arteries bilaterally. Normal visualized paranasal sinuses. CT/Brain/Head without Contrast IMPRESSION: Chronic involutional changes of the brain. Electronically Signed: Wilfred De La Cruz MD at 15:02 [facility] ,
--- NOTE | 2024-07-02 14:30 | RAD_ITS ---
STUDY: X-RAY - RIGHT KNEE REASON FOR EXAM: Female, 68 years old. Pain TECHNIQUE: 4 view(s) of the knee. COMPARISON: Comparison is made with prior study dated June 29, 2024. FINDINGS: Normal visualized distal femur. Normal visualized proximal tibia and fibula. Normal proximal tibiofibular articulation. There is severe degenerative arthrosis of the medial femorotibial compartment with severe joint space narrowing. Degenerative spurring seen along the distal right medial femoral condyle. Normal lateral femorotibial compartment. Normal patellofemoral articulation. Small joint effusion. Vascular calcification. RAD/Knee 4 or More Views IMPRESSION: Degenerative arthrosis. Small joint effusion. Electronically Signed: Wilfred De La Cruz MD at 15:13 EST ,
--- NOTE | 2024-07-02 14:31 | EDS_ITS ---
HPI <NITO Herring - Last Filed: 07/02/24 15:34> HPI - Fall History of Present Illness Chief Complaint: Fall Narrative Narrative: 68-year-old female went out on her porch to get some packages and was returning into her house going up 1 step into the home and fell forward striking her nose on the ground. She states she did catch herself with her hands but also landed on her right knee. It was a carpeted surface. She denies loss of consciousness. She was able to get up and has been ambulatory and walked to the car for family member to bring her in. She reports pain in her nose and right knee. She states she has severe osteoarthritis in the knee. She denies headache, visual changes, neck pain, or nausea or vomiting. She is not on blood thinners. [facility] <NITO Herring - Last Filed: 07/02/24 15:34> [facility] Medical History Gallstones BMI 40.0-44.9, adult Spinal stenosis Encounter for screening for malignant neoplasm of lung in current smoker with 30 pack year history or greater Tobacco use disorder, continuous Degenerative lumbar spinal stenosis Oral thrush Cough due to bronchospasm Dyspnea on exertion Arthritis Kidney stones GERD (gastroesophageal reflux disease) Hypertension Anxiety and depression COPD (chronic obstructive pulmonary disease) PTSD (post-traumatic stress disorder) Home Medications ?Medication ?Instructions ?Recorded ?Last Taken ?Type sertraline 100 mg tablet 200 mg PO DAILY depression 10/23/20 01/08/21 History aripiprazole 20 mg tablet 20 mg PO DAILY mood 01/06/21 01/08/21 History Pulse oximeter #1 ea 02/05/21 Unknown Rx blood pressure monitor (Blood #1 ea 02/05/21 Unknown Rx Pressure Kit) walker (Ultra-Light Rollator misc) #1 ea 03/24/21 Unknown Rx bupropion HCl 150 mg 24 hr tablet, 300 mg PO DAILY mood 05/05/21 Unknown History extended release amlodipine 5 mg tablet 5 mg PO DAILY blood pressure #90 01/14/22 Unknown Rx tabs underpads (Bed Underpads) #40 ea 02/16/22 Unknown Rx esomeprazole magnesium 20 mg 20 mg PO DAILY gerd #90 caps 08/12/22 Unknown Rx capsule,delayed release lisinopril 20 1 tab PO DAILY blood pressure #90 08/12/22 Unknown Rx mg-hydrochlorothiazide 25 mg tablet tabs nebulizer inhalation 3XD 12/08/22 Unknown History budesonide 160 mcg-glycopyr 9 2 inh inhalation BID 03/24/23 Unknown History mcg-formot 4.8 mcg/actuation HFA inhaler (Breztri Aerosphere) levothyroxine 50 mcg tablet 50 mcg PO DAILY #30 tabs 08/09/23 Unknown Rx albuterol sulfate 90 mcg/actuation 2 puff inhalation Q4-6H PRN 12/01/23 Unknown History aerosol inhaler shortness of breath or wheezing azithromycin 250 mg tablet 250 mg PO DAILY #4 TABLETS 02/05/24 Unknown Rx gabapentin 600 mg tablet 600 mg PO TID 04/18/24 Unknown History pregabalin 150 mg capsule 150 mg PO BID 04/18/24 Unknown History albuterol sulfate 2.5 mg/3 mL mg inhalation 06/21/24 Unknown History (0.083 %) solution for nebulization brinzolamide 1 % eye 1 drp ophthalmic (eye) BID 06/21/24 Unknown History drops,suspension bupropion HCl 300 mg 24 hr tablet, 300 mg PO 06/21/24 Unknown History extended release cefdinir 300 mg capsule 300 mg PO BID 06/21/24 Unknown History ergocalciferol (vitamin D2) 1,250 1,250 mcg PO QWEEK 06/21/24 Unknown History mcg (50,000 unit) capsule fesoterodine 4 mg tablet,extended 4 mg PO 06/21/24 Unknown History release 24 hr latanoprost 0.005 % eye drops 1 drp ophthalmic (eye) DAILY 06/21/24 Unknown History lisinopril 20 1 tab PO DAILY 06/21/24 Unknown History mg-hydrochlorothiazide 12.5 mg tablet prednisone 10 mg tablet 10 mg PO UD #30 tabs 06/21/24 Unknown Rx gabapentin 300 mg capsule 300 mg PO QHS 06/29/24 Unknown History Allergy/AdvReac Type Severity Reaction Status Date / Time Sulfa (Sulfonamide Allergy Vomiting Verified 07/02/24 14:14 Antibiotics) Family History Mother Diabetes Hypertension Breast cancer Father Heart disease Hypertension Myocardial infarction, Onset Age: 46 Surgical History Hx of hernia repair Hx of cholecystectomy History of hand surgery History of hysterectomy History of History of D&C Social History household members: none Smoking Status: Former smoker quit date: 01/03/21 Tobacco: How many years used: 36 alcohol intake: never substance use type: does not use what type of physical activity do you participate in: none ROS <NITO Herring - Last Filed: 07/02/24 15:34> ROS ED ROS Narrative Eyes: Negative for visual change. GI: Negative for nausea, vomiting. Neuro: Negative for headache. EXAM <NITO Herring - Last Filed: 07/02/24 15:34> Physical Exam Narrative Exam Narrative: CONST: Patient sitting in no acute distress. EYES: Normal inspection. PERRL, EOMI. ENT: No raccoon eyes or Newell sign, small red gomez along the bridge of the nose, no swelling or deformity or crepitus, no nasal septal hematoma, no epistaxis, no hemotympanum, no CSF otorrhea or rhinorrhea. NECK: Normal inspection. No midline tenderness or step-offs. RESP: No respiratory distress, CTAB. Chest wall nontender. Wears nasal cannula oxygen at baseline. CVS: Regular rate and rhythm, no murmur, no gallop. ABD: Soft and nontender, no guarding or rebound, nondistended. Back: Normal inspection, no midline tenderness. SKIN: Color normal, no rash, warm, dry, intact. EXTREMITIES: Normal appearance, full range of motion upper and lower extremities, 2+ radial and DP pulses. No tenderness of upper extremities. Tender over right medial knee, patella midline, normal extension. Negative anterior/posterior drawer and varus and valgus stress. NEURO: Alert and answering questions appropriately. PSYCH: Normal affect. Const Vital Signs: 07/02/24 14:13 07/02/24 14:14 Temperature 96.8 F L Temperature Source Temporal Pulse Rate 101 H Respiratory Rate 18 Respiratory Effort Short of Breath Respiratory Depth Normal Respiratory Pattern Normal Blood Pressure 100/63 Blood Pressure Mean 75 Pulse Ox 98 Oxygen Delivery Method Nasal Cannula Nasal Cannula Oxygen Flow Rate (L/min) 3 <Dr. Elio James DO - Last Filed: 07/02/24 15:12> Physical Exam Const Vital Signs: 07/02/24 14:13 07/02/24 14:14 Temperature 96.8 F L Temperature Source Temporal Pulse Rate 101 H Respiratory Rate 18 Respiratory Effort Short of Breath Respiratory Depth Normal Respiratory Pattern Normal Blood Pressure 100/63 Blood Pressure Mean 75 Pulse Ox 98 Oxygen Delivery Method Nasal Cannula Nasal Cannula Oxygen Flow Rate (L/min) 3 MDM <NITO Herring - Last Filed: 07/02/24 15:34> [facility] Narrative Medical decision making narrative: Differential includes nasal contusion versus fracture, knee contusion versus fracture or ligamentous injury I have personally performed a face to face assessment of the patient and have reviewed the JOSÉ MIGUEL Note. I performed a substantive portion of the visit including all aspects of the following. My hollingsworth findings include: History is [patient presents to the emergency department after sustaining a fall and injuring her right knee and her nose. Patient states that she had gone out to get some packages and when she was coming back into the house her right knee gave out and she fell. She states that she was able to get her hands out in front of her but states she still bumped her nose on the ground. No loss of consciousness. Her nose did not bleed. Mainly concerned about her nose. Also has some pain in the right knee but she says she has a bad knee. She has been ambulatory since the fall. Denies neck pain. She is not anticoagulated.] Exam is [HEENT-PERRLA, EOMI. Cranial nerves II through XII grossly intact. TMs clear. Mucous membranes moist. No adenopathy. Evaluation of the nose does reveal some tenderness over the nasal bridge. There is no obvious deformity. No septal hematomas or blood in the nasal vault noted. Mild bruising to the left lateral aspect of the nose approximately. No C-spine tenderness on exam. Cardiovascular-regular rate and rhythm without murmur or ectopy Lungs-clear to auscultation, chest wall stable without crepitus or subcu emphysema Abdomen-normoactive bowel sounds, soft, nontender, no rebound or rigidity, no peritoneal signs. Extremities-intact ?4, normal range of motion. Right knee-patient has some mild tenderness over the medial joint line. She has good range of motion flexion extension. No significant ecchymosis or bruising noted. There is no effusion. She is neurovascular intact distally. She is able to lift the leg up off the bed without difficulty. Medical Decison Making [CT scan of the brain without contrast was unremarkable. X-rays of the left knee obtained showed no fractures on my interpretation and did show degenerative changes of the medial compartment. Patient will be offered an Rob wrap. She does not want thing for pain. Advised to follow-up with primary care physician within next 3 to 5 days. Patient advised to follow- up with orthopedics regarding her knee.] Other additions or changes: [None] Radiography Diagnostic Testing: Clinical Impression(s) from Imaging Studies Brain CT 07/02/24 14:30 IMPRESSION: Chronic involutional changes of the brain. Electronically Signed: Wilfred De La Cruz MD at 15:02 EST , Knee X-Ray 07/02/24 14:30 IMPRESSION: Degenerative arthrosis. Small joint effusion. Electronically Signed: Wilfred De La Cruz MD at 15:13 EST , <Dr. Elio Jmaes, DO - Last Filed: 07/02/24 15:12> [facility] Narrative Medical decision making narrative: I have personally performed a face to face assessment of the patient and have reviewed the JOSÉ MIGUEL Note. I performed a substantive portion of the visit including all aspects of the following. My hollingsworth findings include: History is [patient presents to the emergency department after sustaining a fall and injuring her right knee and her nose. Patient states that she had gone out to get some packages and when she was coming back into the house her right knee gave out and she fell. She states that she was able to get her hands out in front of her but states she still bumped her nose on the ground. No loss of consciousness. Her nose did not bleed. Mainly concerned about her nose. Also has some pain in the right knee but she says she has a bad knee. She has been ambulatory since the fall. Denies neck pain. She is not anticoagulated.] Exam is [HEENT-PERRLA, EOMI. Cranial nerves II through XII grossly intact. TMs clear. Mucous membranes moist. No adenopathy. Evaluation of the nose does reveal some tenderness over the nasal bridge. There is no obvious deformity. No septal hematomas or blood in the nasal vault noted. Mild bruising to the left lateral aspect of the nose approximately. No C-spine tenderness on exam. Cardiovascular-regular rate and rhythm without murmur or ectopy Lungs-clear to auscultation, chest wall stable without crepitus or subcu emphysema Abdomen-normoactive bowel sounds, soft, nontender, no rebound or rigidity, no peritoneal signs. Extremities-intact ?4, normal range of motion. Right knee-patient has some mild tenderness over the medial joint line. She has good range of motion flexion extension. No significant ecchymosis or bruising noted. There is no effusion. She is neurovascular intact distally. She is able to lift the leg up off the bed without difficulty. Medical Decison Making [CT scan of the brain without contrast was unremarkable. X-rays of the left knee obtained showed no fractures on my interpretation and did show degenerative changes of the medial compartment. Patient will be offered an Rob wrap. She does not want thing for pain. Advised to follow-up with primary care physician within next 3 to 5 days. Patient advised to follow- up with orthopedics regarding her knee.] Other additions or changes: [None] Radiography Diagnostic Testing: Clinical Impression(s) from Imaging Studies Brain CT 07/02/24 14:30 IMPRESSION: Chronic involutional changes of the brain. Electronically Signed: Wilfred De La Cruz MD at 15:02 EST , Knee X-Ray 07/02/24 14:30 IMPRESSION: Degenerative arthrosis. Small joint effusion. Electronically Signed: Wilfred De La Cruz MD at 15:13 EST , 4 view x-rays of the left knee obtained interpreted by myself as no evidence of fracture. Patient has arthrosis of the medial compartment on my interpretation. Discharge Plan Triage Chief Complaint: Fall ED Midlevel Provider: Frances Augustin ED Provider: Elio James Dx/Rx/DC Orders Clinical Impression: Fall, Contusion of knee, right, Contusion of nose Instructions: Bruises (Contusions) Prescriptions: No Action nebulizer inhalation 3XD albuterol sulfate 90 mcg/actuation HFA aerosol inhaler 2 puff inhalation Q4-6H PRN (Reason: shortness of breath or wheezing) gabapentin 600 mg tablet 600 mg PO TID pregabalin 150 mg capsule 150 mg PO BID gabapentin 300 mg capsule 300 mg PO QHS sertraline 100 mg tablet 200 mg PO DAILY aripiprazole 20 mg tablet 20 mg PO DAILY bupropion HCl 150 mg tablet extended release 24 hr 300 mg PO DAILY Breztri Aerosphere 160-9-4.8 mcg/actuation HFA aerosol inhaler 2 inh inhalation BID azithromycin 250 mg tablet 250 mg PO DAILY Qty: 4 0RF prednisone 10 mg tablet 10 mg PO UD Qty: 30 0RF Rx Instructions: Take 4 tablets daily for 3 days, then 3 daily for 3 days, then 2 daily for 3 days, then 1 a day for 3 days latanoprost 0.005 % drops 1 drp ophthalmic (eye) DAILY albuterol sulfate 2.5 mg /3 mL (0.083 %) solution for nebulization inhalation lisinopril-hydrochlorothiazide 20-12.5 mg tablet 1 tab PO DAILY brinzolamide 1 % drops,suspension 1 drp ophthalmic (eye) BID ergocalciferol (vitamin D2) 1,250 mcg (50,000 unit) capsule 1,250 mcg PO QWEEK cefdinir 300 mg capsule 300 mg PO BID bupropion HCl 300 mg tablet extended release 24 hr 300 mg PO fesoterodine 4 mg tablet extended release 24 hr 4 mg PO (DME) blood pressure monitor [Blood Pressure Kit] Kit See Rx Instructions .ROUTE .MEDSUPPLY Qty: 1 0RF Rx Instructions: Check daily and as needed (DME) Pulse oximeter See Rx Instructions .Route .MEDSUPPLY Qty: 1 0RF Rx Instructions: Monitor daily or as needed (DME) Ultra-Light Rollator Misc See Rx Instructions .ROUTE .MEDSUPPLY Qty: 1 0RF Rx Instructions: As directed amlodipine 5 mg tablet 5 mg PO DAILY Qty: 90 3RF (DME) underpads [Bed Underpads] Pad See Rx Instructions .Route Qty: 40 6RF Rx Instructions: R32. esomeprazole magnesium 20 mg capsule,delayed release(DR/EC) 20 mg PO DAILY Qty: 90 3RF lisinopril-hydrochlorothiazide 20-25 mg tablet 1 tab PO DAILY Qty: 90 3RF levothyroxine 50 mcg tablet 50 mcg PO DAILY Qty: 30 2RF Primary Care Provider: Tre Weston Referrals: Tre Weston MD [Primary Care Provider] - Activity Restrictions/Additional Instructions: Ice, take Tylenol as needed and use your walker. Print Language: Senegalese Disposition Disposition: Home, Self Care
== END 2024-07-02 15:57 | disposition home or self-care (01) ==
PROVIDERS: Emergency Provider Emergency Medicine; PCP Family Medicine; Visit Provider Emergency Medicine
DX: S00.33XA Contusion of nose, initial encounter (principal); J44.9 Chronic obstructive pulmonary disease, unspecified; S80.01XA Contusion of right knee, initial encounter; W10.9XXA Fall (on) (from) unspecified stairs and steps, initial encounter; Y92.018 Other place in single-family (private) house as the place of occurrence of the external cause; M17.12 Unilateral primary osteoarthritis, left knee; I10 Essential (primary) hypertension; Z79.899 Other long term (current) drug therapy; Z87.891 Personal history of nicotine dependence
CPT/HCPCS: 70450; 73564; 99282

== ENCOUNTER 2024-07-10 15:53 | Emergency (ER) | payer MEDICARE, MEDICAID, SELFPAY ==
[2024-04-16 11:16] VITALS: BMI 41.0
[2024-07-10 15:53] VITALS: BP 148/81; PULSE 97; RESP 22; TEMP 36.8; O2SAT 94
[2024-07-10 15:56] VITALS: BMI 45.3
[2024-07-10 16:14] VITALS: O2SAT 97
[2024-07-10 16:30] VITALS: PULSE 99; RESP 18; O2SAT 97
[2024-07-10] MEDS: Ipratropium/Albuterol Sulfate 3 ML AMPUL.NEB INHALATION (16:30)
[2024-07-10 16:37] LABS: Absolute Lymphocyte Count 0.96 X10^3/uL (0.83-4.51); Absolute Neutrophil Count 9.4 X10^3/uL (2.0-7.7); Basophil# 0.04 X10^3/uL; Basophil% 0.3 % (0-1); Eosinophil# 0.29 X10^3/uL; Eosinophils% 2.5 % (0-5); Hemoglobin 11.4 g/dL (12.0-15.0); Lymphocyte # 0.96 X10^3/ul (0.83-4.51); Lymphocyte % 8.4 % (19-41); Mean Corp Hgb Conc 31.7 g/dL (32-36); Mean Corpuscular Hgb 25.7 pg (27.0-32.0); Mean Corpuscular Volume 81.1 fL (81-99); Mean Platelet Vol. 7.8 fl (6.2-12.0); Monocyte# 0.65 X10^3/uL; Monocyte% 5.7 % (0-10); NRBC Flagged by Analyzer 0 % (0-5); Neutrophil # 9.38 X10^3/uL (2.7-7.7); Platelet Count 231 K/mm3 (150-450); RBC Distribution Width CV 16.4 % (11.6-14.6); RBC Distribution Width SD 48.4 fl (35.1-43.9); Red Blood Count 4.44 M/mm3 (4.2-5.4); White Blood Count 11.5 K/mm3 (4.4-11.0)
[2024-07-10 16:53] LABS: Anion Gap 7 (5-15); BUN 7 mg/dL (7-18); BUN/Creat Ratio 8.2 RATIO (10-20); Chloride 95 mmol/L (98-107); Creatinine, Serum 0.86 mg/dL (0.55-1.02); EST Glomerular Filtration Rate 70 mL/min (>60); Est Glom Filt Rate - Afr Amer 84 mL/min (>60); Estimated Creatinine Clearance 66.71 ml/min; Glucose 103 mg/dL (74-106); Potassium 3.9 mmol/L (3.5-5.1); Sodium Level 133 mmol/L (136-145); Troponin-I HS 8 pg/mL (3.0-54.0)
[2024-07-10 17:46] VITALS: BP 160/95; PULSE 95; RESP 17; TEMP 36.9; O2SAT 97
== END 2024-07-10 17:59 | disposition home or self-care (01) ==
PROVIDERS: Emergency Provider Emergency Medicine; PCP Family Medicine; Visit Provider Emergency Medicine
DX: R06.02 Shortness of breath (principal); J44.9 Chronic obstructive pulmonary disease, unspecified; R60.0 Localized edema; E87.1 Hypo-osmolality and hyponatremia; I10 Essential (primary) hypertension; Z99.81 Dependence on supplemental oxygen; Z87.891 Personal history of nicotine dependence
CPT/HCPCS: 99284; 71045; 80048; 83880; 84484; 85025; 93005; 94640; A4216

== ENCOUNTER 2024-07-12 13:40 | Inpatient (IN) | payer MEDICARE, MEDICAID, SELFPAY ==
[2024-04-16 11:16] VITALS: BMI 41.0
[2024-07-12] VITALS (15 sets, daily range): BP systolic 132–171; BP diastolic 81–101; PULSE 88–118; RESP 17–26; TEMP 36.3–37.1; O2SAT 86–98; BMI 46.0; BMI 43.2
--- NOTE | 2024-07-12 14:02 | EKG12_ITS ---
Test Reason : SOB Blood Pressure : */* mmHG Vent. Rate : 95 BPM Atrial Rate : 95 BPM P-R Int : 144 ms QRS Dur : 80 ms QT Int : 318 ms P-R-T Axes : 58 16 46 degrees QTcB Int : 399 ms Normal sinus rhythm Normal ECG Confirmed by ANSELMO POWERS, CHINO ([id number]), pictures editor NOAH CHAPA ([id number]) on 07/17/2024 7:50:20 AM Referred By: Confirmed By: CHINO BRIONES MD
--- NOTE | 2024-07-12 14:11 | EX.ED.DYSGE1 ---
HPI History of Present Illness Chief Complaint: Hypertension Detail of Chief Complaint: Elevated blood pressure with dizziness Informant: patient and family Onset/Context/Timing Onset: Today (This morning blood pressure 217/110, dizziness upon awakening this morning) Context: - (Unknown) Timing: Continuous (Dizziness has been persistent since onset) Quality: My head feels like it is swimming Location: Head Current Severity: Mild Maximum Severity: Mild Worsened by: Nothing Relieved by: Nothing Associated Symptoms Associated Symptoms: Nausea Narrative Narrative: Patient is a 68-year-old woman who has end-stage COPD on oxygen by nasal cannula 3 L. Patient presents because she contacted her doctor Dr. Bryant because upon awakening she was dizzy. Because she was dizzy she took her blood pressure. Blood pressure was 217/110. She has known history of hypertension. She denies headache. She denies double vision, blurred vision loss of vision. She is status post bilateral cataract surgery. She did have ringing in her ears this morning. She denies decreased hearing. She denies trouble with speech or swallowing. She denies problems with balance or coordination. She denies paresthesia, anesthesia or motor weakness upper or lower extremities. She denies history of stroke. Patient was noted to be hypoxic in triage. Her oxygen was increased from 3 L to 5 L. She has had a significant cough for the past several days with productive sputum and white-colored. She does have history of productive cough of white-colored sputum. Sputum production is increased. Lucy is also noted that she has wheezing and she does endorse increased shortness of breath with walking compared to normal. She denies history of PE or DVT. She denies leg pain. She does have swelling due to lymphedema. She denies abdominal pain, vomiting, melena or hematochezia. She denies dysuria, frequency, urgency or hematuria. She is not on an anticoagulant. Patient was last known well 1800 on July 12. Patient awoke at 0300. She had dizziness at that time. She did not have a headache at that time however. Prior similar symptoms: No Recent Illness/Hospitalization: No [facility] Medical History Gallstones BMI 40.0-44.9, adult Spinal stenosis Encounter for screening for malignant neoplasm of lung in current smoker with 30 pack year history or greater Tobacco use disorder, continuous Degenerative lumbar spinal stenosis Oral thrush Cough due to bronchospasm Dyspnea on exertion Arthritis Kidney stones GERD (gastroesophageal reflux disease) Hypertension Anxiety and depression COPD (chronic obstructive pulmonary disease) PTSD (post-traumatic stress disorder) Home Medications ?Medication ?Instructions ?Recorded ?Last Taken ?Type sertraline 100 mg tablet 200 mg PO DAILY depression 10/23/20 01/08/21 History aripiprazole 20 mg tablet 20 mg PO DAILY mood 01/06/21 01/08/21 History Pulse oximeter #1 ea 02/05/21 Unknown Rx blood pressure monitor (Blood #1 ea 02/05/21 Unknown Rx Pressure Kit) walker (Ultra-Light Rollator misc) #1 ea 03/24/21 Unknown Rx amlodipine 5 mg tablet 5 mg PO DAILY blood pressure #90 01/14/22 Unknown Rx tabs underpads (Bed Underpads) #40 ea 02/16/22 Unknown Rx esomeprazole magnesium 20 mg 20 mg PO DAILY gerd #90 caps 08/12/22 Unknown Rx capsule,delayed release nebulizer 12/08/22 Unknown History budesonide 160 mcg-glycopyr 9 2 inh inhalation BID 03/24/23 Unknown History mcg-formot 4.8 mcg/actuation HFA inhaler (Breztri Aerosphere) levothyroxine 50 mcg tablet 50 mcg PO DAILY #30 tabs 08/09/23 Unknown Rx albuterol sulfate 90 mcg/actuation 2 puff inhalation Q4-6H PRN 12/01/23 Unknown History aerosol inhaler shortness of breath or wheezing gabapentin 600 mg tablet 600 mg PO TID 04/18/24 Unknown History pregabalin 150 mg capsule 150 mg PO BID 04/18/24 Unknown History albuterol sulfate 2.5 mg/3 mL 2.5 mg inhalation Q6H 06/21/24 Unknown History (0.083 %) solution for nebulization brinzolamide 1 % eye 1 drp ophthalmic (eye) BID 06/21/24 Unknown History drops,suspension bupropion HCl 300 mg 24 hr tablet, 300 mg PO DAILY 06/21/24 Unknown History extended release ergocalciferol (vitamin D2) 1,250 1,250 mcg PO QWEEK 06/21/24 Unknown History mcg (50,000 unit) capsule fesoterodine 4 mg tablet,extended 4 mg PO DAILY 06/21/24 Unknown History release 24 hr latanoprost 0.005 % eye drops 1 drp ophthalmic (eye) DAILY 06/21/24 Unknown History gabapentin 300 mg capsule 300 mg PO QHS 06/29/24 Unknown History Allergy/AdvReac Type Severity Reaction Status Date / Time Sulfa (Sulfonamide Allergy Vomiting Verified 07/12/24 13:44 Antibiotics) Family History Mother Diabetes Hypertension Breast cancer Father Heart disease Hypertension Myocardial infarction, Onset Age: 46 Surgical History Hx of hernia repair Hx of cholecystectomy History of hand surgery History of hysterectomy History of History of D&C Social History household members: none Smoking Status: Former smoker quit date: 01/03/21 Tobacco: How many years used: 36 alcohol intake: never substance use type: does not use what type of physical activity do you participate in: none ROS ROS ED Constitutional Constitutional ED: Denies chills, fever(s), subjective or sweats Eyes Eyes: Denies blurry vision, change in vision or diplopia ENT ENT ED: Reports rhinorrhea; Denies ear pain or sore throat Cardiovascular Cardiovascular: Denies chest pain, orthopnea, palpitations or paroxysmal nocturnal dyspnea Respiratory/Chest Respiratory/Chest: Reports cough, dyspnea, dyspnea on exertion and sputum; Denies orthopnea or paroxysmal nocturnal dyspnea Gastrointestinal Gastrointestinal: Reports nausea; Denies abdominal pain, diarrhea, melena or vomiting Genitourinary Genitourinary ED: Denies dysuria, hematuria or urinary frequency Musculoskeletal Musculoskeletal: Reports neck pain Integumentary Denies rash Neurologic Neurologic: Reports headache(s); Denies paresthesias or weakness Endocrine Endocrinology: Denies cold intolerance or heat intolerance Hematologic/Lymphatic Hematologic/Lymphatic: Reports systems reviewed and no addt'l complaints, except as documented Allergic/Immunologic Allergic/Immunologic ED: Denies mouth swelling or tongue swelling EXAM Physical Exam Const Vital Signs: 07/12/24 13:41 07/12/24 14:20 07/12/24 14:40 Temperature 98 F Temperature Source Oral Pulse Rate 92 94 95 Respiratory Rate 22 H 20 H Respiratory Effort Respiratory Pattern Blood Pressure 171/91 H 132/101 H Blood Pressure Mean 117 111 Pulse Ox 88 98 Oxygen Delivery Method Nasal Cannula Oxygen Flow Rate (L/min) 3 07/12/24 14:46 07/12/24 15:00 07/12/24 15:07 Temperature Temperature Source Pulse Rate 96 Respiratory Rate Respiratory Effort Normal Respiratory Pattern Normal Blood Pressure 152/91 H Blood Pressure Mean 111 Pulse Ox 98 97 Oxygen Delivery Method Nasal Cannula Oxygen Flow Rate (L/min) 3 07/12/24 16:00 07/12/24 17:00 07/12/24 18:11 Temperature 97.4 F L Temperature Source Oral Pulse Rate 102 H 95 118 H Respiratory Rate 17 19 H 26 H Respiratory Effort Respiratory Pattern Blood Pressure 147/81 H 147/86 H Blood Pressure Mean 100 103 Pulse Ox 96 86 Oxygen Delivery Method Nasal Cannula Oxygen Flow Rate (L/min) 3 07/12/24 18:22 07/12/24 18:24 Temperature 98.7 F 98.7 F Temperature Source Oral Pulse Rate 94 94 Respiratory Rate 19 H 19 H Respiratory Effort Respiratory Pattern Blood Pressure 157/91 H 157/91 H Blood Pressure Mean 113 113 Pulse Ox 98 98 Oxygen Delivery Method Room Air Oxygen Flow Rate (L/min) Positive well nourished and well developed Constitutional Narrative: BMI is greater than 40. Patient is in mild respiratory distress with audible wheezing and use of accessory muscles. General Appearance ED: well developed; Negative for pallor HEENT Reports dry mucous membranes HEENT Narrative: Ears normal. External auditory canal is occluded on the right. Able to see 50% of the left TM on the left. No discomfort pulling on the auricle portion of the tragus. Nares patent. There is no discharge noted. Posterior pharynx is normal. Mouth ED: Yes dry mucous membranes Mouth: dry mucous membranes Eyes PERRL and EOMs intact bilaterally Eyes Narrative: Patient is status post cataract surgery. General Eye ED: Negative for pale conjunctiva or scleral icterus Neck no lymphadenopathy, supple and no JVD Chest Wall inspection of chest normal and palpation of chest normal Resp No normal respiratory effort and No clear to auscultation bilaterally Resp Narrative: There is increased expiratory phase. Auscultation: wheezes expiratory wheezes and throughout Cardio regular rate, regular rhythm, S1 normal heart sound, S2 normal heart sound and no murmurs GI normal to inspection, nondistended, normoactive bowel sounds, non-tender, non-distended and no masses; Negative for hepatosplenomegaly Auscultation: hypoactive bowel sounds Palpation: soft Back/Spine no CVA tenderness Extremity Negative for normal to inspection General Extremety ED: Yes edema; Negative for tenderness General Extremity: edema Neuro oriented x3, CN's II-XII intact bilaterally and no sensory deficits noted Neuro Narrative: There is no dysmetria. Romberg with eyes open and close negative. The eye askew test and the hints test were both negative. Roland-Hallpike was negative. Gait was not tested since patient states she felt uncomfortable. Apparently she has been falling recently. Sensorium / Orientation: alert Motor Exam: strength 5/5 throughout Psych mental status grossly normal Skin no rashes or lesions noted and no wounds General Skin Exam: Negative for jaundice or pallor MDM MDM MDM Narrative Medical decision making narrative: The dizziness may be due to cerumen impaction on the right. Will Debrox ear. Patient's blood pressure is elevated. However it is not of concern to warrant an emergent CT especially with a normal neurologic exam. Since patient does have mild Rester distress with expiratory wheezing productive cough which is worse than normal will obtain chest x-ray to assess for pneumonia versus exacerbate COPD. She was treated with systemic steroids, Atrovent followed by albuterol treatments. She was placed on a monitor to assess her rhythm. History & Record Review Additional record(s) reviewed:: Prior inpatient record (Review of records back to 2018 indicates no admissions to the hospital.), Prior ED visit (Patient was seen 2 days ago for exacerbation of COPD. Seen July 02 for knee issue. June 21 for COPD and February 04 for COPD) and Prior labs Lab Data Attestation: I reviewed the patient's lab results. Lab results narrative: Compress metabolic panel is remarked for an elevated CO2 of 35. Glucose is 133 with a normal anion gap. Alkaline phosphatase slightly elevated 123. Labs: Laboratory Results - last 24 hr 07/12/24 14:22 WBC 10.0 RBC 4.61 Hgb 11.8 L Hct 37.1 MCV 80.5 L MCH 25.6 L MCHC 31.8 L RDW Std Deviation 47.0 H RDW Coeff of Ronny 16.1 H Plt Count 245 MPV 8.0 Immature Gran % (Auto) 1.200 H Neut % (Auto) 83.4 H Lymph % (Auto) 7.7 L Garland % (Auto) 5.2 Eos % (Auto) 2.1 Baso % (Auto) 0.4 Absolute Neuts (auto) 8.3 H Absolute Lymphs (auto) 0.77 L Nucleated RBC % 0 Sodium 135 L Potassium 3.9 Chloride 95 L Carbon Dioxide 35.0 H Anion Gap 5 BUN 9 Creatinine 0.87 Est GFR (MDRD) Af Amer 82 Est GFR (MDRD) Non-Af 68 BUN/Creatinine Ratio 10.3 Glucose 133 H Lactic Acid 0.8 Calcium 10.8 H Total Bilirubin 0.30 AST 14 L ALT 34 Alkaline Phosphatase 123 H Total Protein 7.0 Albumin 3.0 L Globulin 4.0 Albumin/Globulin Ratio 0.8 L Radiography Chest X-Ray - ED: 2 View, Read by ED Physician, Unchanged, Normal, Heart, Mediastinum, Bony Structures, No Acute Disease, Chronic Changes and - (X-ray was compared to 2 days ago which was interpreted as negative and in my opinion there is no change. I am in disagreement with the radiology read) Diagnostic Testing: Clinical Impression(s) from Imaging Studies Chest X-Ray 07/12/24 15:01 IMPRESSION: Findings suggestive of a chronic interstitial fibrosis and mild degree of superimposed CHF. Electronically Signed: Wilfred De La Cruz MD at 15:49 EST , EKG Initial EKG: Attestation: I personally reviewed and interpreted this EKG as follows: Interpretation: Sinus Rhythm (Normal with a rate of 95. NJ interval is 144 ms. QS duration 80 ms. QT duration 218 ms. Chambers is normal.) Treatment and Re-Evaluation :: I was informed that patient did not do well on ambulation. After walking 10 feet her O2 desaturated 86%. She was tachypneic tachycardic. She is not at baseline. Will contact hospitalist for admission. Of note her dizziness resolved with clearing of the cerumen from her right external auditory canal. Comments:: Since patient does have a productive cough will start on antibiotics. My opinion antibiotics to be started orally. Discharge Plan Dx/Rx/DC Orders Clinical Impression: Acute exacerbation of chronic obstructive pulmonary disease, Hypertension, Hypothyroidism (acquired), Acute bronchospasm, Impacted cerumen of right ear, Peripheral vertigo, Acute purulent bronchitis, Hypoxia Disposition Disposition: Acute Care [facility]
[2024-07-12] MEDS: predniSONE 20 MG Tablet 60 MG PO (14:16)
[2024-07-12] MEDS: Ipratropium/Albuterol Sulfate 3 ML AMPUL.NEB INHALATION ×2 (14:20→20:38)
[2024-07-12] MEDS: Albuterol 2.5 MG/3 ML VIAL.NEB. INHALATION ×3 (14:20)
[2024-07-12] MEDS: Carbamide Peroxide 15 ML Bottle 5 DRP OTIC (14:40)
[2024-07-12 14:44] LABS: ALB/GLOB Ratio 0.8 RATIO (0.9-2.4); AST(SGOT) 14 U/L (15-37); Alanine Aminotransfer ALT/SGPT 34 U/L (13-56); Alkaline Phosphatase 123 U/L (45-117); Anion Gap 5 (5-15); BUN 9 mg/dL (7-18); BUN/Creat Ratio 10.3 RATIO (10-20); Calcium,Total 10.8 mg/dL (8.5-10.1); Chloride 95 mmol/L (98-107); Creatinine, Serum 0.87 mg/dL (0.55-1.02); EST Glomerular Filtration Rate 68 mL/min (>60); Est Glom Filt Rate - Afr Amer 82 mL/min (>60); Glucose 133 mg/dL (74-106); Potassium 3.9 mmol/L (3.5-5.1); Sodium Level 135 mmol/L (136-145)
--- NOTE | 2024-07-12 15:01 | RAD_ITS ---
STUDY: X-RAY CHEST REASON FOR EXAM: Female, 68 years old. Respiratory distress, hypoxia, wheezing and produc TECHNIQUE: Single AP portable view of the chest. COMPARISON: Comparison is made with prior study dated July 10, 2024. FINDINGS: Stable increased bilateral interstitial markings suggestive of chronic interstitial fibrosis. There may be an element of superimposed mild CHF. There is no demonstrated pleural abnormality. Normal size heart. Normal mediastinum and magui. Normal visualized pulmonary arteries. There is atherosclerotic calcification of the aortic arch with tortuosity. There are diffuse degenerative changes of the visualized thoracic spine. Normal visualized ribs, clavicles, and shoulders. There is no demonstrated abnormality of the visualized soft tissue structures of the upper abdomen. RAD/Chest 1 View (Portable) IMPRESSION: Findings suggestive of a chronic interstitial fibrosis and mild degree of superimposed CHF. Electronically Signed: Wilfred De La Cruz MD at 15:49 EST ,
[2024-07-12 15:08] LABS: Lactic Acid 0.8 mmol/L (0.4-1.9)
[2024-07-12 16:09] LABS: Absolute Lymphocyte Count 0.77 X10^3/uL (0.83-4.51); Absolute Neutrophil Count 8.3 X10^3/uL (2.0-7.7); Basophil# 0.04 X10^3/uL; Basophil% 0.4 % (0-1); Eosinophil# 0.21 X10^3/uL; Eosinophils% 2.1 % (0-5); Hematocrit 37.1 % (37-47); Hemoglobin 11.8 g/dL (12.0-15.0); Lymphocyte # 0.77 X10^3/ul (0.83-4.51); Lymphocyte % 7.7 % (19-41); Mean Corp Hgb Conc 31.8 g/dL (32-36); Mean Corpuscular Hgb 25.6 pg (27.0-32.0); Mean Corpuscular Volume 80.5 fL (81-99); Monocyte# 0.52 X10^3/uL; Monocyte% 5.2 % (0-10); NRBC Flagged by Analyzer 0 % (0-5); Neutrophil % 83.4 % (47-70); Platelet Count 245 K/mm3 (150-450); RBC Distribution Width CV 16.1 % (11.6-14.6); Red Blood Count 4.61 M/mm3 (4.2-5.4)
[2024-07-12] MEDS: Doxycycline 100 MG CAPSULE PO (18:32)
--- NOTE | 2024-07-12 18:42 | HP.PCM.HOS_ITS ---
HPI - General General Date of Admission: 07/12/24 Date of Service: 07/12/24 Chief Complaint: Dizziness and elevated blood pressure HPI Narrative MAX TOM, is a 68 F who presented to [facility] ED on 07/12/2024 with dizziness and elevated blood pressure. Patient has history of hypertension. Per family her PCP has recently changed her medications and she is only on amlodipine 5 mg daily for her blood pressure. Patient woke up feeling dizzy this morning. She also reported having a ringing in her years. She took her blood pressure at home and it was 217/110. She reported mild headache then but denied any lightheadedness or dizziness. Because of the dizziness and high blood pressure, she came to the ED for further evaluation. On arrival here her blood pressure was 171/91. Dr. Salmeron noted that she had cerumen impaction in her right ear and Debrox the ear and patient reported significant improvement in her dizziness with this. However, patient was also found to be hypoxic on arrival here. She is normally on 3 L nasal cannula for end-stage COPD and was satting in the low to mid 80s on this. She was bumped up to 5 L nasal cannula with improvement. She attempted to ambulate but had significant shortness of breath with only mild exertion. She was noted to have wheezing bilaterally. Given these findings, hospitalist was contacted for admission. I saw the patient at bedside in the ED, daughter was present. Patient was mildly fatigued appearing but otherwise sitting up comfortably in bed and in no acute distress. She was breathing comfortably on 5 L nasal cannula. She did note having a mild cough over the last few days with whitish colored sputum production. Denies any fevers or chills. Denies any history of DVT or PE and denies any leg pain or swelling. Denies any upper or lower extremity weakness or numbness/tingling. Denies any vision changes. Chest x- ray showed chronic interstitial fibrosis with a mild degree of superimposed CHF. Patient otherwise denies any other acute concerns. Will be admitted for further management. [facility] Medical History Gallstones BMI 40.0-44.9, adult Spinal stenosis Encounter for screening for malignant neoplasm of lung in current smoker with 30 pack year history or greater Tobacco use disorder, continuous Degenerative lumbar spinal stenosis Oral thrush Cough due to bronchospasm Dyspnea on exertion Arthritis Kidney stones GERD (gastroesophageal reflux disease) Hypertension Anxiety and depression COPD (chronic obstructive pulmonary disease) PTSD (post-traumatic stress disorder) Home Medications ?Medication ?Instructions ?Recorded ?Last Taken ?Type sertraline 100 mg tablet 200 mg PO DAILY depression 10/23/20 01/08/21 History aripiprazole 20 mg tablet 20 mg PO DAILY mood 01/06/21 01/08/21 History Pulse oximeter #1 ea 02/05/21 Unknown Rx blood pressure monitor (Blood #1 ea 02/05/21 Unknown Rx Pressure Kit) walker (Ultra-Light Rollator misc) #1 ea 03/24/21 Unknown Rx amlodipine 5 mg tablet 5 mg PO DAILY blood pressure #90 01/14/22 Unknown Rx tabs underpads (Bed Underpads) #40 ea 02/16/22 Unknown Rx esomeprazole magnesium 20 mg 20 mg PO DAILY gerd #90 caps 08/12/22 Unknown Rx capsule,delayed release nebulizer 12/08/22 Unknown History budesonide 160 mcg-glycopyr 9 2 inh inhalation BID 03/24/23 Unknown History mcg-formot 4.8 mcg/actuation HFA inhaler (Breztri Aerosphere) levothyroxine 50 mcg tablet 50 mcg PO DAILY #30 tabs 08/09/23 Unknown Rx albuterol sulfate 90 mcg/actuation 2 puff inhalation Q4-6H PRN 12/01/23 Unknown History aerosol inhaler shortness of breath or wheezing gabapentin 600 mg tablet 600 mg PO TID 04/18/24 Unknown History pregabalin 150 mg capsule 150 mg PO BID 04/18/24 Unknown History albuterol sulfate 2.5 mg/3 mL 2.5 mg inhalation Q6H 06/21/24 Unknown History (0.083 %) solution for nebulization brinzolamide 1 % eye 1 drp ophthalmic (eye) BID 06/21/24 Unknown History drops,suspension bupropion HCl 300 mg 24 hr tablet, 300 mg PO DAILY 06/21/24 Unknown History extended release ergocalciferol (vitamin D2) 1,250 1,250 mcg PO QWEEK 06/21/24 Unknown History mcg (50,000 unit) capsule fesoterodine 4 mg tablet,extended 4 mg PO DAILY 06/21/24 Unknown History release 24 hr latanoprost 0.005 % eye drops 1 drp ophthalmic (eye) DAILY 06/21/24 Unknown History gabapentin 300 mg capsule 300 mg PO QHS 06/29/24 Unknown History Allergy/AdvReac Type Severity Reaction Status Date / Time Sulfa (Sulfonamide Allergy Vomiting Verified 07/12/24 13:44 Antibiotics) Family History Mother Diabetes Hypertension Breast cancer Father Heart disease Hypertension Myocardial infarction, Onset Age: 46 Surgical History Hx of hernia repair Hx of cholecystectomy History of hand surgery History of hysterectomy History of History of D&C Social History household members: none Smoking Status: Former smoker quit date: 01/03/21 Tobacco: How many years used: 36 alcohol intake: never substance use type: does not use what type of physical activity do you participate in: none ROS Constitutional Constitutional: Reports fatigue; Denies chills, fever(s) or weakness Eyes Eyes: Denies blurry vision or change in vision Cardiovascular Cardiovascular: Reports dyspnea on exertion; Denies chest pain, edema or lightheadedness Respiratory/Chest Respiratory/Chest: Reports cough, productive cough, shortness of breath with exertion and wheezing; Denies shortness of breath at rest Gastrointestinal Gastrointestinal: Denies abdominal pain Musculoskeletal Musculoskeletal: Denies arthralgias or myalgias Neurologic Neurologic: Denies dizziness, focal weakness, headache(s), numbness or paresthesias Vital Signs Vital Signs Vital Signs: 07/12/24 13:41 07/12/24 14:20 07/12/24 14:40 Temperature 98 F Temperature Source Oral Pulse Rate 92 94 95 Respiratory Rate 22 H 20 H Respiratory Effort Respiratory Pattern Blood Pressure 171/91 H 132/101 H Blood Pressure Mean 117 111 Pulse Ox 88 98 Oxygen Delivery Method Nasal Cannula Oxygen Flow Rate (L/min) 3 07/12/24 14:46 07/12/24 15:00 07/12/24 15:07 Temperature Temperature Source Pulse Rate 96 Respiratory Rate Respiratory Effort Normal Respiratory Pattern Normal Blood Pressure 152/91 H Blood Pressure Mean 111 Pulse Ox 98 97 Oxygen Delivery Method Nasal Cannula Oxygen Flow Rate (L/min) 3 07/12/24 16:00 07/12/24 17:00 07/12/24 18:11 Temperature 97.4 F L Temperature Source Oral Pulse Rate 102 H 95 118 H Respiratory Rate 17 19 H 26 H Respiratory Effort Respiratory Pattern Blood Pressure 147/81 H 147/86 H Blood Pressure Mean 100 103 Pulse Ox 96 86 Oxygen Delivery Method Nasal Cannula Oxygen Flow Rate (L/min) 3 07/12/24 18:22 07/12/24 18:24 Temperature 98.7 F 98.7 F Temperature Source Oral Pulse Rate 94 94 Respiratory Rate 19 H 19 H Respiratory Effort Respiratory Pattern Blood Pressure 157/91 H 157/91 H Blood Pressure Mean 113 113 Pulse Ox 98 98 Oxygen Delivery Method Room Air Oxygen Flow Rate (L/min) Weight Weight: 106.8 kg Body Mass Index (BMI) 46.0 Physical Exam Const alert, oriented x3 and no apparent distress Constitutional Narrative: Elderly female, morbidly obese, chronically ill-appearing, mildly fatigued appearing, otherwise sitting up comfortably in bed and answering questions appropriately, in no acute distress. General Appearance: cooperative and comfortable HEENT normocephalic, head/scalp atraumatic, hearing grossly normal bilaterally, nasal mucous membranes and turbinates normal and moist oral mucous membranes Eyes PERRL, EOMs intact bilaterally and conjunctivae normal Neck full ROM Chest inspection of chest normal Resp normal respiratory effort and no use of accessory muscles Resp Narrative: Mild wheezing noted in upper airways bilaterally with crackles noted in bilateral lung bases. Breathing comfortably on 5 L nasal cannula at rest. Cardio regular rate, regular rhythm, no murmurs and peripheral pulses 2+ throughout GI normal to inspection, nondistended, normoactive bowel sounds, soft to palpation, non-tender and non-distended Back/Spine normal ROM Extremity normal to inspection, full ROM and no pedal edema Skin no rashes or lesions noted Neuro moves all extremities and no focal motor deficits Motor Exam: strength 5/5 throughout Psych mental status grossly normal Psych Narrative: Flat affect. Results Lab / Micro Data 07/12/24 14:22 07/12/24 14:22 Labs: Laboratory Results - last 24 hr 07/12/24 14:22: WBC 10.0, RBC 4.61, Hgb 11.8 L, Hct 37.1, MCV 80.5 L, MCH 25.6 L , MCHC 31.8 L, RDW Std Deviation 47.0 H, RDW Coeff of Ronny 16.1 H, Plt Count 245, MPV 8.0, Immature Gran % (Auto) 1.200 H, Neut % (Auto) 83.4 H, Lymph % (Auto) 7.7 L, [place] % (Auto) 5.2, Eos % (Auto) 2.1, Baso % (Auto) 0.4, Absolute Neuts (auto) 8.3 H, Absolute Lymphs (auto) 0.77 L, Nucleated RBC % 0, Sodium 135 L, Potassium 3.9, Chloride 95 L, Carbon Dioxide 35.0 H, Anion Gap 5, BUN 9, Creatinine 0.87, Est GFR (MDRD) Af Amer 82, Est GFR (MDRD) Non-Af 68, BUN/Creatinine Ratio 10.3, Glucose 133 H, Lactic Acid 0.8, Calcium 10.8 H, Total Bilirubin 0.30, AST 14 L, ALT 34, Alkaline Phosphatase 123 H, Total Protein 7.0, Albumin 3.0 L, Globulin 4.0, Albumin/Globulin Ratio 0.8 L Imaging Radiology Impression Chest X-Ray 07/12/24 15:01 IMPRESSION: Findings suggestive of a chronic interstitial fibrosis and mild degree of superimposed CHF. Electronically Signed: Wilfred De La Cruz MD at 15:49 EST , Assessment & Plan Assessment/Plan (1) Hypoxia: (2) Hypertension: PLAN: Plan Patient is a 68-year-old female who presented [facility] ED on 07/12/2024 with dizziness and elevated blood pressure. 1. Acute hypoxia on chronic respiratory failure ? Admit under inpatient status to [facility]. Chest x-ray on admit showed mild volume overload in setting of chronic interstitial fibrosis. Has had cough with whitish sputum production as well. No history of CHF noted. Highest suspicion is for a mild degree of flash pulmonary edema due to poorly controlled hypertension as noted below. Noninfectious appearing, afebrile and normal WBC count so have lower concern for pneumonia or true COPD exacerbation. Suspect upper airway wheezing is due to pulmonary edema. Will give doses of IV Lasix 40 mg tonight and tomorrow morning. Scheduled DuoNebs ordered for now. Was given doses of prednisone and antibiotics in the ED, will hold on further doses of these for now. Wean supplemental oxygen as able. 2. Acute on chronic debility ? PT/OT/case management consulted. 3. Poorly controlled hypertension ? Currently only on amlodipine 5 mg daily. Has apparently had medication changes made by her PCP recently for her blood pressure. IV hydralazine as needed ordered while inpatient. Suspect patient will need an additional blood pressure medication added prior to discharge. 4. Right ear cerumen impaction ? Presented with dizziness and found in ED to have right ear cerumen impaction. This was treated with peroxide with significant improvement. 5. Mild chronic anemia ? Hemoglobin 11.8 on admit, at baseline. Chronic medical conditions: ? Morbid obesity: BMI 43 on admit. Complicates hospital course, care and prognosis. ? Neuropathy: Continue home gabapentin and pregabalin. ? Hypothyroidism: Continue home Synthroid. ? GERD: Continue home PPI. ? Mood disorder: Continue home meds. DVT prophylaxis: Lovenox CODE STATUS: DNR CCA, DNI Expected disposition: TBD Total clinical time spent by myself addressing the patient's medical issues, reviewing all the data, and collaborating with patient's care team: 75 minutes. Charges/Coding Visit Charges Inpatient E&M: 30757 Init Hosp L3
[2024-07-12] MEDS: Furosemide 40 MG/4 ML Vial IV (19:25)
[2024-07-12] MEDS: Budesonide Respules 0.5 MG/2 ML AMPUL.NEB. INHALATION (20:38)
[2024-07-12] MEDS: Gabapentin 600 MG Tablet PO (21:04)
[2024-07-12] MEDS: Pregabalin 75 MG Capsule 150 MG PO (21:04)
[2024-07-12] MEDS: Enoxaparin 40 MG/0.4 ML Syringe SC (21:04)
[2024-07-13] VITALS (8 sets, daily range): BP systolic 130–142; BP diastolic 81–98; PULSE 81–90; RESP 17–19; TEMP 36.6–36.8; O2SAT 85–99
[2024-07-13] MEDS: Acetaminophen 325 MG Tablet 650 MG PO (02:51)
[2024-07-13] MEDS: Levothyroxine 50 MCG Tablet PO (06:30)
[2024-07-13] MEDS: Gabapentin 600 MG Tablet PO ×2 (06:30→14:21)
[2024-07-13 06:38] LABS: Hematocrit 37.4 % (37-47); Hemoglobin 11.8 g/dL (12.0-15.0); Mean Corp Hgb Conc 31.6 g/dL (32-36); Mean Corpuscular Hgb 25.4 pg (27.0-32.0); Mean Corpuscular Volume 80.4 fL (81-99); Mean Platelet Vol. 7.9 fl (6.2-12.0); Platelet Count 247 K/mm3 (150-450); RBC Distribution Width SD 46.5 fl (35.1-43.9); Red Blood Count 4.65 M/mm3 (4.2-5.4); White Blood Count 11.7 K/mm3 (4.4-11.0)
[2024-07-13 07:00] LABS: Anion Gap 7 (5-15); BUN 14 mg/dL (7-18); BUN/Creat Ratio 13.6 RATIO (10-20); Calcium,Total 10.2 mg/dL (8.5-10.1); Chloride 94 mmol/L (98-107); Creatinine, Serum 1.03 mg/dL (0.55-1.02); EST Glomerular Filtration Rate 56 mL/min (>60); Est Glom Filt Rate - Afr Amer 68 mL/min (>60); Estimated Creatinine Clearance 54.13 ml/min; Glucose 125 mg/dL (74-106); Potassium 4.4 mmol/L (3.5-5.1); Sodium Level 134 mmol/L (136-145)
[2024-07-13] MEDS: Budesonide Respules 0.5 MG/2 ML AMPUL.NEB. INHALATION (07:02)
[2024-07-13] MEDS: Ipratropium/Albuterol Sulfate 3 ML AMPUL.NEB INHALATION ×2 (07:02→13:05)
[2024-07-13] MEDS: Latanoprost 0.005% 1 Bottle 1 DRP OPHTHALMIC (07:55)
[2024-07-13] MEDS: Tolterodine Tartrate 2 MG CAP.SA PO (07:58)
[2024-07-13] MEDS: ARIPiprazole 10 MG Tablet 20 MG PO (07:59)
[2024-07-13] MEDS: amLODIPine 5 MG Tablet PO (08:00)
[2024-07-13] MEDS: Sertraline 100 MG Tablet 200 MG PO (08:01)
[2024-07-13] MEDS: buPROPion (XL) 300 MG TABLET.XL PO (08:01)
[2024-07-13] MEDS: Pantoprazole Sodium 20 MG Tablet PO (08:01)
[2024-07-13] MEDS: Pregabalin 75 MG Capsule 150 MG PO (08:09)
[2024-07-13] MEDS: 0.9% Saline Lock 10 ML Syringe IV (09:24)
[2024-07-13] MEDS: Furosemide 40 MG/4 ML Vial IV (09:25)
--- NOTE | 2024-07-13 10:00 | CASEMGMT ---
RN SHEA FLASH DEVELOPER CM to room to meet with patient for initial transition planning/care coordination assessment. SYDNI VALDIVIA introduced self and role at [facility]. Pt voices understanding and consents to assessment at this time. Pt sitting up in recliner chair in no distress at this time. Friend/Kayleen MCPHERSON, @ bedside and pt agreeable to her being present during assessment. Pt is A/O at this time and answers all questions appropriately. Care providers, pharmacy, and demographics verified/updated at this time. PCP: Dr Weston Specialists: Dr Perez- ortho. Dr Grace Yao-puldavon. Palliative: Pt was active w/Palliative care and then transferred to hospice care. Pt then had surgery and got better, so hospice released her. She did not end up going back on palliative care. She would like new referral for palliative care at this time. MS3 SYDNI VALDIVIA, [facility], made aware. Preferred Pharmacy: Insurance: [employer] Prescription Benefit: Yes Living Will/HPOA: Pt has a HCPOA and LW but would like to make some changs. SW notified. LNOK: Friend/HCPOA Kayleen. Sister, Kay. Living Arrangements: Lives w/Kayleen in 2-story home w/ramp enterance. FFSU. Independent w/ADL's and manages her own medications. Kayleen does the cooking and most home mgnt tasks. Transportation: FriendKayleen DME: has the following DME: shower chair, rails/grab bars, ramp entrance into home, hospital bed, walker, hand held shower, nebulizer, pulse ox, O2 through [employer]. Pt states has been wearing it @ 3 L/M continuously. Per Dann @ [employer], current orders are 2 L/M w/exertion and HS. She has a concentrator and portable o2 tanks. Pt has portable o2 tank in her room to go home on. Pt made aware home O2 amb testing will be completed prior to discharge and if she qualifies for more than 2 L/M w/exertion, new updated O2 script will be sent to [employer] ([facility]). She is in the process of getting a W/C and denies needing assistance w/this. She denies need for further DME. HHC/SNF: No history of either. Pt denies need for HHC, [facility], or OP therapy. Made aware if she changes her mind, to discuss options w/PCP. Pt wishes to return home and states has no concerns with going home at time of discharge. CM to follow for any increase in home oxygen needs and any further discharge planning/needs. Pt and Kayleen voice no further concerns/needs at this time. Advised them to ask for CM if any further questions/concerns/needs arise. They voice understanding. PLAN: Home w/support of friend, Kayleen. CM to follow for any Home O2 needs @ discharge. Jacquelyn MAYAN RN CM
--- NOTE | 2024-07-13 12:00 | CASEMGMT ---
Addendum entered by Klaudia Michaels 07/13/24 16:01: Spoke with pt nurse to confirm that pt needs tested at [facility] and on 2L with exertion. Pt to be retested for oxygen requirements. Addendum entered by Klaudia Michaels 07/13/24 12:16: Received confirmation via email that referral was received for palliative care. Original Note: Received handoff from RN SHEA that pt is interested in palliative care. Pt screened with [facility] Palliative Care screening tool, pt met criteria. Received order, referral sent to Palliative Care via email. Green sheet on chart should pt need an increase in oxygen requirements.
--- NOTE | 2024-07-13 14:46 | CHAPLAIN ---
Type of Pastoral Visit _x__ Initial Visit ___ Follow-up Visit ___ On-call Visit ___ General Patient Visit ___ Spiritual Assessment ___ Family Conference ___ Bereavement ___ Rapid Response ___ Code Blue ___ Other (describe below) Pastoral Care Referral From __x_ Patient ___ Family ___ Nurse ___ Physician ___ Yarn Winder ___ [employer] Manager ___ Other (describe below) Sacrament/Intervention _x__ Active listening ___ Anointing ___ Congregational ___ Bereavement ___ Communion _x__ Iliana exploration ___ _x__ Life review _x__ Prayer ___ Reconciliation ___ Sacrament of Sick ___ Supportive presence ___ Wedding ___ Other (describe below) Pastoral Comments patient is welcoming and describes her condition; pt expresses eagerness to go home and is waiting for the doctor to release me; pt speaks of her anxious thoughts of which is not afraid to but afraid of the dying part; listened and explored what this means to the patient; pt has lost a handicapped son at age 21 and she reflects on his and that now he has no limitations, but is whole; pt uses her iliana to find comfort and hope; pt is expressive and talkative about life and iliana; pt welcomes presence and prayer; pt expresses gratitude for the spiritual care support
--- NOTE | 2024-07-13 15:49 | DCINST_ITS ---
Discharge Instructions Diet Discharge Diet: No restrictions Activity Discharge Activity: Return to Normal Activity Weight Bearing Status: Full weight bearing Follow Up Care Test Results: Test results from this visit will be discussed in further detail at your follow- up appointment, if applicable. Discharge Plan Admission Admit Date/Time: 07/12/24 18:42 Primary Reason for Your Visit: Hypoxia, uncontrolled hypertension Attending Provider: Octaviano Casey Primary Care Provider: Tre Weston Consulting Providers: Chidi Conde Additional Instructions / Restrictions: Discussed with your family doctor your use of gabapentin and pregabalin at the same time, I recommend that they stop one of them and increase the dose of the other Your oxygen requirement is 3 L/min at rest and while ambulating Discharge Orders/Prescriptions Prescriptions: Continued (DME) nebulizer 0 .ROUTE .MEDSUPPLY albuterol sulfate 90 mcg/actuation HFA aerosol inhaler 2 puff inhalation Q4-6H PRN (Reason: shortness of breath or wheezing) gabapentin 600 mg tablet 600 mg PO TID pregabalin 150 mg capsule 150 mg PO BID gabapentin 300 mg capsule 300 mg PO QHS sertraline 100 mg tablet 200 mg PO DAILY aripiprazole 20 mg tablet 20 mg PO DAILY Breztri Aerosphere 160-9-4.8 mcg/actuation HFA aerosol inhaler 2 inh inhalation BID latanoprost 0.005 % drops 1 drp ophthalmic (eye) DAILY albuterol sulfate 2.5 mg /3 mL (0.083 %) solution for nebulization 2.5 mg inhalation Q6H brinzolamide 1 % drops,suspension 1 drp ophthalmic (eye) BID ergocalciferol (vitamin D2) 1,250 mcg (50,000 unit) capsule 1,250 mcg PO QWEEK bupropion HCl 300 mg tablet extended release 24 hr 300 mg PO DAILY fesoterodine 4 mg tablet extended release 24 hr 4 mg PO DAILY (DME) blood pressure monitor [Blood Pressure Kit] Kit See Rx Instructions .ROUTE .MEDSUPPLY Qty: 1 0RF Rx Instructions: Check daily and as needed (DME) Pulse oximeter See Rx Instructions .Route .MEDSUPPLY Qty: 1 0RF Rx Instructions: Monitor daily or as needed (DME) Ultra-Light Rollator Misc See Rx Instructions .ROUTE .MEDSUPPLY Qty: 1 0RF Rx Instructions: As directed amlodipine 5 mg tablet 5 mg PO DAILY Qty: 90 3RF (DME) underpads [Bed Underpads] Pad See Rx Instructions .Route Qty: 40 6RF Rx Instructions: R32. esomeprazole magnesium 20 mg capsule,delayed release(DR/EC) 20 mg PO DAILY Qty: 90 3RF levothyroxine 50 mcg tablet 50 mcg PO DAILY Qty: 30 2RF Referrals / Follow Up: Tre Weston MD [Primary Care Provider] - 07/16/24 10:00 am (As previously scheduled ) Disposition Disposition (needs filled in before D/C Order can be placed): Home, Self Care
--- NOTE | 2024-07-13 15:57 | CASEMGMT ---
Social Work Pt has a living will and Health care POA on file at [facility]. Pt requesting to make changes. SW met with pt and assisted in making new HCPOA naming her friend Kayleen Maguire as primary decision maker and sister Kay Reardon as first alternate. SW reviewed pt's current living will with pt and pt choosing to not make changes to this and leave living will in place. Copy of HCPOA placed on pt chart and original given to pt. TAVON Rollins
--- NOTE | 2024-07-13 16:06 | DS.PCM_ITS ---
Providers Date of Admission: 07/12/24 Date of Discharge: 07/13/24 Primary Care Physician: Tre Weston MD Reason For Visit: ACUTE ON CHRONIC RESP FAILURE Diagnosis Discharge Diagnosis (1) Hypoxia: Status: Acute Code(s): R09.02 - Hypoxemia (2) Hypertension: Status: Chronic Code(s): I10 - Essential (primary) hypertension Plan 1. Acute hypoxia on a backdrop of chronic hypoxic respiratory failure #2 acute on chronic debility #3 uncontrolled hypertension #4 morbid obesity #5 chronic hypoxic respiratory failure Medications at Discharge Home Medications sertraline 100 mg tablet 200 mg PO DAILY depression 10/23/20 aripiprazole 20 mg tablet 20 mg PO DAILY mood 01/06/21 Pulse oximeter #1 ea 02/05/21 blood pressure monitor (Blood Pressure Kit) #1 ea 02/05/21 walker (Ultra-Light Rollator misc) #1 ea 03/24/21 amlodipine 5 mg tablet 5 mg PO DAILY blood pressure #90 tabs 01/14/22 underpads (Bed Underpads) #40 ea 02/16/22 esomeprazole magnesium 20 mg capsule,delayed release 20 mg PO DAILY gerd #90 caps 08/12/22 nebulizer 12/08/22 budesonide 160 mcg-glycopyr 9 mcg-formot 4.8 mcg/actuation HFA inhaler (Breztri Aerosphere) 2 inh inhalation BID 03/24/23 levothyroxine 50 mcg tablet 50 mcg PO DAILY #30 tabs 08/09/23 albuterol sulfate 90 mcg/actuation aerosol inhaler 2 puff inhalation Q4-6H PRN shortness of breath or wheezing 12/01/23 gabapentin 600 mg tablet 600 mg PO TID 04/18/24 pregabalin 150 mg capsule 150 mg PO BID 04/18/24 albuterol sulfate 2.5 mg/3 mL (0.083 %) solution for nebulization 2.5 mg inhalation Q6H 06/21/24 brinzolamide 1 % eye drops,suspension 1 drp ophthalmic (eye) BID 06/21/24 bupropion HCl 300 mg 24 hr tablet, extended release 300 mg PO DAILY 06/21/24 ergocalciferol (vitamin D2) 1,250 mcg (50,000 unit) capsule 1,250 mcg PO QWEEK 06/21/24 fesoterodine 4 mg tablet,extended release 24 hr 4 mg PO DAILY 06/21/24 latanoprost 0.005 % eye drops 1 drp ophthalmic (eye) DAILY 06/21/24 gabapentin 300 mg capsule 300 mg PO QHS 06/29/24 Hospital Course Operations None Procedures None Summary of Care Provided Minutes Spent on Discharge: 31 Hospital Course: This 68-year-old white female was seen in the emergency room at [facility] with a chief complaint of nausea and dizziness. Patient stated her blood pressure was elevated at home at 217/110. Patient was noted to be hypoxic in triage on her home O2 setting with 3 L, this was increased to 5 L labs revealed a normal white blood cell count, chemistry panel was unremarkable, chest x-ray showed findings suggestive of a chronic interstitial fibrosis and a mild degree of CHF. Patient was admitted to [place] [id number] for acute hypoxia [place] drop of chronic hypoxic respiratory failure and acute on chronic debility, blood pressure was monitored and improved without additional medications. On 07/13/2024, patient was on her outpatient oxygen setting and felt improved, she requested discharge home. On 07/13/2024, patient was seen and examined: On examination she appeared in good health and spirits, she does not appear to be in any distress. Vital signs as documented. Skin warm and dry and without overt rashes. Neck without JVD, thyroid appears normal, trachea is midline, neck is supple. Lungs clear, normal air movement was noted. Heart exam notable for regular rhythm, normal sounds and absence of murmurs, rubs or gallops. Abdomen unremarkable and without evidence of organomegaly, masses, or abdominal aortic enlargement, bowel sounds are present in all 4 quadrants, no abdominal tenderness was noted. Extremities nonedematous, no cyanosis was noted, no clubbing was noted. Neuro: Cranial nerves II through XII are grossly intact, no focal motor deficits were noted, sensation to light touch and pinprick is intact, motor exam 5/5 throughout. Psych: Patient is alert and oriented x3, she does not appear anxious or depressed, she does not appear agitated. Patient was discharged home in stable condition on 07/13/2024. Weight / BMI Weight Weight: 100.425 kg Body Mass Index (BMI) 43.2 ABG / Lab / Microbiology Data 07/13/24 06:15 07/13/24 06:15 Laboratory: Laboratory Results - last 24 hr 07/12/24 14:22: WBC 10.0, RBC 4.61, Hgb 11.8 L, Hct 37.1, MCV 80.5 L, MCH 25.6 L , MCHC 31.8 L, RDW Std Deviation 47.0 H, RDW Coeff of Ronny 16.1 H, Plt Count 245, MPV 8.0, Immature Gran % (Auto) 1.200 H, Neut % (Auto) 83.4 H, Lymph % (Auto) 7.7 L, [place] % (Auto) 5.2, Eos % (Auto) 2.1, Baso % (Auto) 0.4, Absolute Neuts (auto) 8.3 H, Absolute Lymphs (auto) 0.77 L, Nucleated RBC % 0 07/13/24 06:15: WBC 11.7 H, RBC 4.65, Hgb 11.8 L, Hct 37.4, MCV 80.4 L, MCH 25.4 L, MCHC 31.6 L, RDW Std Deviation 46.5 H, RDW Coeff of Ronny 16.0 H, Plt Count 247, MPV 7.9, Sodium 134 L, Potassium 4.4, Chloride 94 L, Carbon Dioxide 34.0 H, Anion Gap 7, BUN 14, Creatinine 1.03 H, Estim Creat Clear Calc 54.13, Est GFR (MDRD) Af Amer 68, Est GFR (MDRD) Non-Af 56 L, BUN/Creatinine Ratio 13.6, G lucose 125 H, Calcium 10.2 H D/C Instructions Discharge Diet: No restrictions Weight Bearing Status: Full weight bearing Meaningful Use Info Meaningful Use Meaningful Use Diagnoses (Choose all that apply): None applicable Ischemic Stroke Statin Dosing Therapy Reference: STATIN DOSE THERAPY REFERENCE: * Patients > 75 years receive moderate or high dose statin therapy. * Patients 75 years or YOUNGER should receive HIGH intensity statin dose unless contraindicated. You will be required to document reason for non-treatment if statin daily dose does not meet guidelines. HIGH DOSE STATIN THERAPY DAILY Atorvastatin > than or = to 40 mg Rosuvastatin > than or = to 20 mg Amlodipine + Atorvastatin > than or = to 2.5/40 mg Ezetimibe + Simvastatin 10/80 mg Simvastatin 80mg Discharge Plan Admission Admit Date/Time: 07/12/24 18:42 Primary Reason for Your Visit: Hypoxia, uncontrolled hypertension Attending Provider: Octaviano Casey Primary Care Provider: Tre Weston Consulting Providers: Chidi Conde Additional Instructions / Restrictions: Discussed with your family doctor your use of gabapentin and pregabalin at the same time, I recommend that they stop one of them and increase the dose of the other Your oxygen requirement is 3 L/min at rest and while ambulating Discharge Orders/Prescriptions Prescriptions: Continued (DME) nebulizer 0 .ROUTE .MEDSUPPLY albuterol sulfate 90 mcg/actuation HFA aerosol inhaler 2 puff inhalation Q4-6H PRN (Reason: shortness of breath or wheezing) gabapentin 600 mg tablet 600 mg PO TID pregabalin 150 mg capsule 150 mg PO BID gabapentin 300 mg capsule 300 mg PO QHS sertraline 100 mg tablet 200 mg PO DAILY aripiprazole 20 mg tablet 20 mg PO DAILY Breztri Aerosphere 160-9-4.8 mcg/actuation HFA aerosol inhaler 2 inh inhalation BID latanoprost 0.005 % drops 1 drp ophthalmic (eye) DAILY albuterol sulfate 2.5 mg /3 mL (0.083 %) solution for nebulization 2.5 mg inhalation Q6H brinzolamide 1 % drops,suspension 1 drp ophthalmic (eye) BID ergocalciferol (vitamin D2) 1,250 mcg (50,000 unit) capsule 1,250 mcg PO QWEEK bupropion HCl 300 mg tablet extended release 24 hr 300 mg PO DAILY fesoterodine 4 mg tablet extended release 24 hr 4 mg PO DAILY (DME) blood pressure monitor [Blood Pressure Kit] Kit See Rx Instructions .ROUTE .MEDSUPPLY Qty: 1 0RF Rx Instructions: Check daily and as needed (DME) Pulse oximeter See Rx Instructions .Route .MEDSUPPLY Qty: 1 0RF Rx Instructions: Monitor daily or as needed (DME) Ultra-Light Rollator Misc See Rx Instructions .ROUTE .MEDSUPPLY Qty: 1 0RF Rx Instructions: As directed amlodipine 5 mg tablet 5 mg PO DAILY Qty: 90 3RF (DME) underpads [Bed Underpads] Pad See Rx Instructions .Route Qty: 40 6RF Rx Instructions: R32. esomeprazole magnesium 20 mg capsule,delayed release(DR/EC) 20 mg PO DAILY Qty: 90 3RF levothyroxine 50 mcg tablet 50 mcg PO DAILY Qty: 30 2RF Referrals / Follow Up: Tre Weston MD [Primary Care Provider] - 07/16/24 10:00 am (As previously scheduled ) Disposition Disposition (needs filled in before D/C Order can be placed): Home, Self Care Charges/Coding Visit Charges Inpatient E&M: 20819 Disch Hosp >30min
== END 2024-07-13 16:31 | disposition home or self-care (01) | DRG 189 ==
LOC: ED 19:04 → MS3 19:49
PROVIDERS: Admitting Provider Hospitalist; Emergency Provider Emergency Medicine; PCP Family Medicine; Visit Provider Internal Medicine
DX: J81.0 Acute pulmonary edema (principal); J96.11 Chronic respiratory failure with hypoxia; Z68.41 Body mass index [BMI] 40.0-44.9, adult; Z66 Do not resuscitate; J84.10 Pulmonary fibrosis, unspecified; Z99.81 Dependence on supplemental oxygen; J44.9 Chronic obstructive pulmonary disease, unspecified; I10 Essential (primary) hypertension; E03.9 Hypothyroidism, unspecified; F32.A Depression, unspecified; E66.01 Morbid (severe) obesity due to excess calories; I89.0 Lymphedema, not elsewhere classified; G62.9 Polyneuropathy, unspecified; H61.21 Impacted cerumen, right ear; F41.9 Anxiety disorder, unspecified; Z79.890 Hormone replacement therapy; Z79.899 Other long term (current) drug therapy; Z87.891 Personal history of nicotine dependence
CPT/HCPCS: 36415; 71045; 80048; 80053; 83605; 83880; 84484; 85025; 85027; 93005; 94640; 94668; 99284; 99285; 99406; A4216; J1940

== ENCOUNTER 2024-07-20 02:38 | Emergency (ER) | payer MEDICARE, MEDICAID, SELFPAY ==
[2024-04-16 11:16] VITALS: BMI 41.0
[2024-07-20] VITALS (8 sets, daily range): BP systolic 143–151; BP diastolic 83–88; PULSE 83–96; RESP 15–24; TEMP 36.6–36.7; O2SAT 92–96; BMI 44.3
--- NOTE | 2024-07-20 03:00 | CT_ITS ---
EXAM: CT ABDOMEN AND PELVIS WITH INTRAVENOUS CONTRAST CLINICAL INDICATION: Abdominal pain TECHNIQUE: Helically acquired images were obtained of the abdomen and pelvis with intravenous contrast. This CT exam was performed using one or more of the following dose reduction techniques: automated exposure control, adjustment of the mA and/or kV according to patient size, and/or use of iterative reconstruction technique. CONTRAST: 100 cc of Isovue-370 IV. RADIATION DOSE: CTDIvol = 17.08 mGy, DLP = 1812.98 mGy-cm COMPARISON: No relevant prior studies available. FINDINGS: LOWER THORAX: Coronary artery calcifications. Lung bases are clear. No cardiomegaly. No significant pericardial effusion. ABDOMEN: LIVER: There is diffuse low-attenuation of the liver. GALLBLADDER AND BILE DUCTS: Cholecystectomy. No intra- or extrahepatic biliary ductal dilation. PANCREAS: Unremarkable. No focal cystic or solid mass. SPLEEN: Unremarkable. Normal size without focal cystic or solid mass. ADRENALS: Unremarkable. No nodules. KIDNEYS AND URETERS: Unremarkable. Normal renal size and position. No hydronephrosis. STOMACH AND BOWEL: Unremarkable. No stomach or bowel distention. No focal inflammatory change. PELVIS: APPENDIX: Normal appendix. BLADDER: Unremarkable. REPRODUCTIVE: Hysterectomy. ABDOMEN and PELVIS: INTRAPERITONEAL SPACE: Unremarkable. No ascites or other fluid collection. No free air. BONES/JOINTS: Unremarkable. No suspicious lytic or blastic abnormality. SOFT TISSUES: Unremarkable. No discrete abdominal or pelvic wall hernia. VASCULATURE: See above. LYMPH NODES: Unremarkable. No enlarged lymph nodes. CT/Abdomen/Pelvis W IV Cont ONLY IMPRESSION: 1. No acute abdominal pelvic abnormality. 2. Fatty liver. 3. Cholecystectomy. 4. Hysterectomy. 5. Coronary artery disease. Electronically Signed: Denzel Lee MD at 4:17 EST ,
--- NOTE | 2024-07-20 03:02 | EKG12_ITS ---
Test Reason : DYSRHYTHMIA Blood Pressure : */* mmHG Vent. Rate : 86 BPM Atrial Rate : 86 BPM P-R Int : 146 ms QRS Dur : 80 ms QT Int : 350 ms P-R-T Axes : 53 22 29 degrees QTcB Int : 418 ms Normal sinus rhythm Normal ECG Confirmed by Denzel Celestin ([id number]), news editor KINGS SAAVEDRA ([id number]) on 07/23/2024 6:18:49 AM Referred By: Confirmed By: Denzel Celestin
--- NOTE | 2024-07-20 03:12 | EX.ED.GENINJ ---
HPI History of Present Illness Chief Complaint: Nausea/Vomiting Narrative Narrative: Chief complaint and HPI: Nausea and vomiting. 68-year-old female with history of COPD on 3 L nasal cannula at baseline, HTN presents for evaluation of nausea/vomiting and multiple complaints. Patient states she mostly presents for evaluation of nausea, vomiting, diarrhea, abdominal pain. Onset of symptoms yesterday. Patient states her vomit and diarrhea is nonbloody. She endorses diffuse abdominal pain. She denies any fever, URI symptoms, cough, chest pain, dysuria, hematuria. Patient endorses shortness of breath however she states that she is short of breath at baseline. Triage note states that the patient was diagnosed with fluid overload yesterday however family in the room states this is incorrect. They state that she was diagnosed with this in the past but not yesterday. Patient denies any significant swelling in the body or lower extremities. Patient received Zofran by EMS prior to arrival Review of systems: See HPI Medications: As listed on the chart Allergies: As listed on the chart PFSH: Per chart Vital signs: As listed on the chart. Reviewed. Physical exam: Gen: A&O x3, NAD Head: Normocephalic, atraumatic Eyes: No sclera icterus, conjunctiva clear, PERRL, EOMI ENT: Mildly dry mucous membranes Neck: Trachea midline, No JVD, full range of motion CV: RRR, no murmurs, no peripheral edema Resp: Lungs diminished bilaterally and mildly coarse, + expiratory wheeze diffusely-patient states she wheezes at baseline, on her baseline 3 L nasal cannula GI: Abd soft, non-distended, mildly tender to palpation diffusely, no r/r Musc: Moves all extremity Skin: Warm, dry Neuro: Alert, oriented, grossly intact, sensation intact Psych: Cooperative, appropriate mood and affect [facility] Medical History Gallstones BMI 40.0-44.9, adult Spinal stenosis Encounter for screening for malignant neoplasm of lung in current smoker with 30 pack year history or greater Tobacco use disorder, continuous Degenerative lumbar spinal stenosis Oral thrush Cough due to bronchospasm Dyspnea on exertion Arthritis Kidney stones GERD (gastroesophageal reflux disease) Hypertension Anxiety and depression COPD (chronic obstructive pulmonary disease) PTSD (post-traumatic stress disorder) Home Medications ?Medication ?Instructions ?Recorded ?Last Taken ?Type sertraline 100 mg tablet 200 mg PO DAILY depression 10/23/20 01/08/21 History aripiprazole 20 mg tablet 20 mg PO DAILY mood 01/06/21 01/08/21 History Pulse oximeter #1 ea 02/05/21 Unknown Rx blood pressure monitor (Blood #1 ea 02/05/21 Unknown Rx Pressure Kit) deepak (Ultra-Light Rollator misc) #1 ea 03/24/21 Unknown Rx amlodipine 5 mg tablet 5 mg PO DAILY blood pressure #90 01/14/22 Unknown Rx tabs underpads (Bed Underpads) #40 ea 02/16/22 Unknown Rx esomeprazole magnesium 20 mg 20 mg PO DAILY gerd #90 caps 08/12/22 Unknown Rx capsule,delayed release nebulizer 12/08/22 Unknown History budesonide 160 mcg-glycopyr 9 2 inh inhalation BID 03/24/23 Unknown History mcg-formot 4.8 mcg/actuation HFA inhaler (Breztri Aerosphere) levothyroxine 50 mcg tablet 50 mcg PO DAILY #30 tabs 08/09/23 Unknown Rx albuterol sulfate 90 mcg/actuation 2 puff inhalation Q4-6H PRN 12/01/23 Unknown History aerosol inhaler shortness of breath or wheezing gabapentin 600 mg tablet 600 mg PO TID 04/18/24 Unknown History pregabalin 150 mg capsule 150 mg PO BID 04/18/24 Unknown History albuterol sulfate 2.5 mg/3 mL 2.5 mg inhalation Q6H 06/21/24 Unknown History (0.083 %) solution for nebulization brinzolamide 1 % eye 1 drp ophthalmic (eye) BID 06/21/24 Unknown History drops,suspension bupropion HCl 300 mg 24 hr tablet, 300 mg PO DAILY 06/21/24 Unknown History extended release ergocalciferol (vitamin D2) 1,250 1,250 mcg PO QWEEK 06/21/24 Unknown History mcg (50,000 unit) capsule fesoterodine 4 mg tablet,extended 4 mg PO DAILY 06/21/24 Unknown History release 24 hr latanoprost 0.005 % eye drops 1 drp ophthalmic (eye) DAILY 06/21/24 Unknown History gabapentin 300 mg capsule 300 mg PO QHS 06/29/24 Unknown History cephalexin 500 mg capsule 500 mg PO Q12 #14 CAPSULES 07/20/24 Unknown Rx ondansetron 4 mg disintegrating 4 mg PO Q8H PRN PRN Nausea #10 tabs 07/20/24 Unknown Rx tablet Allergy/AdvReac Type Severity Reaction Status Date / Time Sulfa (Sulfonamide Allergy Vomiting Verified 07/20/24 02:38 Antibiotics) Family History Mother Diabetes Hypertension Breast cancer Father Heart disease Hypertension Myocardial infarction, Onset Age: 46 Surgical History Hx of hernia repair Hx of cholecystectomy History of hand surgery History of hysterectomy History of History of D&C Social History household members: none Smoking Status: Former smoker quit date: 01/03/21 Tobacco: How many years used: 36 alcohol intake: never substance use type: does not use what type of physical activity do you participate in: none EXAM Physical Exam Const Vital Signs: 07/20/24 02:39 07/20/24 02:42 07/20/24 03:10 Temperature 97.9 F 97.9 F Temperature Source Oral Oral Pulse Rate 96 96 Respiratory Rate 18 18 Respiratory Pattern Blood Pressure 148/88 H 148/88 H Blood Pressure Mean 108 108 Pulse Ox 92 92 93 Oxygen Delivery Method Nasal Cannula Nasal Cannula Nasal Cannula Oxygen Flow Rate (L/min) 3 3 3 07/20/24 03:42 07/20/24 03:52 07/20/24 04:00 Temperature 97.9 F 97.8 F Temperature Source Oral Oral Pulse Rate 83 86 83 Respiratory Rate 18 24 H 15 Respiratory Pattern Tachypnea Blood Pressure 147/85 H 151/88 H Blood Pressure Mean 105 109 Pulse Ox 96 95 Oxygen Delivery Method Nasal Cannula Nasal Cannula Oxygen Flow Rate (L/min) 3 3 MDM MDM MDM Narrative Medical decision making narrative: 68-year-old female with history of COPD on 3 L nasal cannula baseline presents for evaluation of nausea, vomiting, diarrhea, abdominal pain, and baseline shortness of breath. Differential diagnosis includes but is not limited to viral illness, gastroenteritis, colitis, diverticulitis, pancreatitis, UTI, pneumonia, COPD exacerbation, CHF exacerbation. See physical exam findings. Patient has diffuse expiratory wheezing. DuoNeb ordered. Will hold off on steroids for now given that patient states her shortness of breath is mostly at baseline and not significantly worse which makes me suspect less likely COPD exacerbation. Cardiac/respiratory/abdominal pain workup ordered. Zofran ordered for nausea. Small NS bolus ordered. EKG and chest x-ray reviewed see below. CBC with mild leukocytosis of 12.5. This appears to be about patient's baseline. No anemia. CMP shows baseline mild hyponatremia as well as renal insufficiency. Patient at her baseline elevated alk phos. No transaminitis. Troponin unremarkable. BNP unremarkable. Lipase unremarkable. COVID, flu, RSV negative. CT abdomen pelvis shows no acute intra-abdominal pathology. UA positive for UTI. Urine culture sent. On previous microbiology, patient has grown out protease which is sensitive to penicillins. Patient placed on Keflex x 7 days. Despite her UTI, I suspect most of her symptoms are secondary to viral etiology. On reexamination, patient's nausea has improved. Her and her family were updated of all the results. Plan is for discharge home. Patient will be prescribed Keflex as well as Zofran for her symptoms. Follow-up with PCP. Given that patient feels that her shortness of breath is at her baseline will not place on steroids for COPD exacerbation. EKG: Interpreted by me/EM physician: EKG shows normal sinus rhythm without any acute ischemic changes. Heart rate 86. Diagnostic: Interpreted by me/EM physician: Chest x-ray shows increased interstitial markings which is similar to previous chest x-ray. No pneumonia, effusion, pneumothorax. Impression: 1. Nausea, vomiting, diarrhea 2. UTI 3. Shortness of breath with history of COPD Lab Data Labs: Laboratory Results - last 24 hr 07/20/24 07/20/24 03:08 04:19 WBC 12.5 H RBC 4.85 Hgb 12.2 Hct 38.8 MCV 80.0 L MCH 25.2 L MCHC 31.4 L RDW Std Deviation 46.5 H RDW Coeff of Ronny 16.1 H Plt Count 351 MPV 7.9 Immature Gran % (Auto) 2.300 H Neut % (Auto) 81.8 H Lymph % (Auto) 7.5 L [place] % (Auto) 6.2 Eos % (Auto) 1.7 Baso % (Auto) 0.5 Absolute Neuts (auto) 10.2 H Absolute Lymphs (auto) 0.94 Nucleated RBC % 0 Sodium 134 L Potassium 4.0 Chloride 93 L Carbon Dioxide 34.0 H Anion Gap 7 BUN 17 Creatinine 1.16 H Estim Creat Clear Calc 48.80 Est GFR (MDRD) Af Amer 59 L Est GFR (MDRD) Non-Af 49 L BUN/Creatinine Ratio 14.7 Glucose 127 H Calcium 9.9 Total Bilirubin 0.30 AST 26 ALT 36 Alkaline Phosphatase 118 H Troponin I High Sens 10 B-Natriuretic Peptide 12.2 Total Protein 7.4 Albumin 3.2 Globulin 4.2 Albumin/Globulin Ratio 0.8 L Lipase 50 Urine Color Yellow Urine Clarity Clear Urine pH 7.0 Ur Specific [place] 1.010 Urine Protein 30 H Urine Glucose (UA) Normal Urine Ketones Negative Urine Occult Blood 10 H Urine Nitrite Positive H Urine Bilirubin Negative Urine Urobilinogen Normal Ur Leukocyte Esterase 25 H Urine RBC 10-25 SEEN Urine WBC 5-10 SEEN Ur Squamous Epith Cells 5-10 SEEN Urine Bacteria 1+ Urine Mucus 0 SEEN Radiography Diagnostic Testing: Clinical Impression(s) from Imaging Studies Abdomen/Pelvis CT 07/20/24 03:00 IMPRESSION: 1. No acute abdominal pelvic abnormality. 2. Fatty liver. 3. Cholecystectomy. 4. Hysterectomy. 5. Coronary artery disease. Electronically Signed: Denzel Lee MD at 4:17 EST , Chest X-Ray 07/20/24 03:40 IMPRESSION: 1. Low lung volumes limit the exam. No consolidations. 2. Prominence of the interstitial markings unchanged since previous exam. Electronically Signed: Denzel Lee MD at 4:35 EST , Discharge Plan Triage Chief Complaint: Nausea/Vomiting ED Provider: Juan Diego Boyce Dx/Rx/DC Orders Clinical Impression: Nausea vomiting and diarrhea, UTI (urinary tract infection) Instructions: Urinary Tract Infections in Women, ED Diet Vomiting Diarrhea, ED Vomit Diarrhea [place] Adult Prescriptions: New ondansetron 4 mg tablet,disintegrating 4 mg PO Q8H PRN PRN (Reason: Nausea) Qty: 10 0RF cephalexin 500 mg capsule 500 mg PO Q12 Qty: 14 0RF No Action (DME) nebulizer 0 .ROUTE .MEDSUPPLY albuterol sulfate 90 mcg/actuation HFA aerosol inhaler 2 puff inhalation Q4-6H PRN (Reason: shortness of breath or wheezing) gabapentin 600 mg tablet 600 mg PO TID pregabalin 150 mg capsule 150 mg PO BID gabapentin 300 mg capsule 300 mg PO QHS sertraline 100 mg tablet 200 mg PO DAILY aripiprazole 20 mg tablet 20 mg PO DAILY Breztri Aerosphere 160-9-4.8 mcg/actuation HFA aerosol inhaler 2 inh inhalation BID latanoprost 0.005 % drops 1 drp ophthalmic (eye) DAILY albuterol sulfate 2.5 mg /3 mL (0.083 %) solution for nebulization 2.5 mg inhalation Q6H brinzolamide 1 % drops,suspension 1 drp ophthalmic (eye) BID ergocalciferol (vitamin D2) 1,250 mcg (50,000 unit) capsule 1,250 mcg PO QWEEK bupropion HCl 300 mg tablet extended release 24 hr 300 mg PO DAILY fesoterodine 4 mg tablet extended release 24 hr 4 mg PO DAILY (DME) blood pressure monitor [Blood Pressure Kit] Kit See Rx Instructions .ROUTE .MEDSUPPLY Qty: 1 0RF Rx Instructions: Check daily and as needed (DME) Pulse oximeter See Rx Instructions .Route .MEDSUPPLY Qty: 1 0RF Rx Instructions: Monitor daily or as needed (DME) Ultra-Light Rollator Misc See Rx Instructions .ROUTE .MEDSUPPLY Qty: 1 0RF Rx Instructions: As directed amlodipine 5 mg tablet 5 mg PO DAILY Qty: 90 3RF (DME) underpads [Bed Underpads] Pad See Rx Instructions .Route Qty: 40 6RF Rx Instructions: R32. esomeprazole magnesium 20 mg capsule,delayed release(DR/EC) 20 mg PO DAILY Qty: 90 3RF levothyroxine 50 mcg tablet 50 mcg PO DAILY Qty: 30 2RF Primary Care Provider: Tre Weston Referrals: Tre Weston MD [Primary Care Provider] - 3-5 Days Print Language: Lithuanian Disposition Disposition: Home, Self Care
[2024-07-20] MEDS: 0.9% Normal Saline (500mL Bag) 500 ML 999 ML IV (03:15)
[2024-07-20 03:23] LABS: Absolute Lymphocyte Count 0.94 X10^3/uL (0.83-4.51); Absolute Neutrophil Count 10.2 X10^3/uL (2.0-7.7); Basophil# 0.06 X10^3/uL; Basophil% 0.5 % (0-1); Eosinophil# 0.21 X10^3/uL; Eosinophils% 1.7 % (0-5); Hematocrit 38.8 % (37-47); Hemoglobin 12.2 g/dL (12.0-15.0); Lymphocyte # 0.94 X10^3/ul (0.83-4.51); Lymphocyte % 7.5 % (19-41); Mean Corp Hgb Conc 31.4 g/dL (32-36); Mean Corpuscular Hgb 25.2 pg (27.0-32.0); Mean Platelet Vol. 7.9 fl (6.2-12.0); Monocyte# 0.77 X10^3/uL; Monocyte% 6.2 % (0-10); NRBC Flagged by Analyzer 0 % (0-5); Neutrophil # 10.19 X10^3/uL (2.7-7.7); Neutrophil % 81.8 % (47-70); Platelet Count 351 K/mm3 (150-450); RBC Distribution Width CV 16.1 % (11.6-14.6); RBC Distribution Width SD 46.5 fl (35.1-43.9); Red Blood Count 4.85 M/mm3 (4.2-5.4); White Blood Count 12.5 K/mm3 (4.4-11.0)
[2024-07-20 03:38] LABS: BNP,B-Type NATRIURETIC PEPTIDE 12.2 pg/mL (0-100)
[2024-07-20 03:40] LABS: Lipase 50 U/L (13-75); Troponin-I HS 10 pg/mL (3.0-54.0)
--- NOTE | 2024-07-20 03:40 | RAD_ITS ---
EXAM: XR CHEST, 2 VIEWS CLINICAL INDICATION: Shortness of breath TECHNIQUE: Frontal and lateral views of the chest. COMPARISON: 07/12/2024. FINDINGS: LUNGS AND PLEURAL SPACES: Low lung volumes limit the exam. Prominence of the interstitial markings unchanged since previous exam. No pneumothorax. No effusion. HEART: Unremarkable. Cardiac silhouette not enlarged. MEDIASTINUM: Central airways and mediastinal contour are unremarkable. BONES/JOINTS: Unremarkable. No acute fracture. SOFT TISSUES: Unremarkable. RAD/Chest PA and Lateral IMPRESSION: 1. Low lung volumes limit the exam. No consolidations. 2. Prominence of the interstitial markings unchanged since previous exam. Electronically Signed: Denzel Lee MD at 4:35 EST ,
[2024-07-20] MEDS: Ipratropium/Albuterol Sulfate 3 ML AMPUL.NEB INHALATION (03:52)
[2024-07-20 04:15] LABS: ALB/GLOB Ratio 0.8 RATIO (0.9-2.4); AST(SGOT) 26 U/L (15-37); Alanine Aminotransfer ALT/SGPT 36 U/L (13-56); Albumin, Serum 3.2 g/dL (3.2-5.0); Alkaline Phosphatase 118 U/L (45-117); Anion Gap 7 (5-15); BUN 17 mg/dL (7-18); BUN/Creat Ratio 14.7 RATIO (10-20); Calcium,Total 9.9 mg/dL (8.5-10.1); Chloride 93 mmol/L (98-107); Creatinine, Serum 1.16 mg/dL (0.55-1.02); EST Glomerular Filtration Rate 49 mL/min (>60); Est Glom Filt Rate - Afr Amer 59 mL/min (>60); Globulin 4.2 g/dL (2.2-4.2); Glucose 127 mg/dL (74-106); Protein, Total 7.4 g/dL (6.4-8.2); Sodium Level 134 mmol/L (136-145)
[2024-07-20] MEDS: Ondansetron 4 MG/2 ML Vial IV (04:28)
[2024-07-20 04:35] LABS: Mucous, Urine 0 SEEN /hpf (<or=2+)
[2024-07-20 04:40] LABS: Color, Urine Yellow (Yellow); Glucose, Dipstick Normal (Normal); Ketone-Dipstick Negative (Negative); Leukocyte Esterase-Dipstick 25 /ul (Negative); Nitrite-Dipstick Positive (Negative); Occult Blood-Urine 10 /ul (Negative); Protein-Dipstick 30 mg/dl (Negative); Urine Bilirubin Dipstick Negative (Negative); Urine Clarity Clear (Clear); Urine Urobilinogen Normal (Normal)
[2024-07-20 05:11] LABS: Bacteria 1+ /hpf (None Seen); Red Blood Cells-Urine 10-25 SEEN /hpf (0-5); Squamous Epithelial Cells - UA 5-10 SEEN /hpf (5-10); White Blood Cells 5-10 SEEN /hpf (0-5)
== END 2024-07-20 05:31 | disposition home or self-care (01) ==
PROVIDERS: Emergency Provider Surgery; PCP Family Medicine; Visit Provider Surgery
DX: R11.2 Nausea with vomiting, unspecified (principal); J44.9 Chronic obstructive pulmonary disease, unspecified; R19.7 Diarrhea, unspecified; R10.84 Generalized abdominal pain; N39.0 Urinary tract infection, site not specified; I10 Essential (primary) hypertension; N28.9 Disorder of kidney and ureter, unspecified; Z11.52 Encounter for screening for COVID-19; R06.02 Shortness of breath; Z79.899 Other long term (current) drug therapy; Z99.81 Dependence on supplemental oxygen; Z87.891 Personal history of nicotine dependence
CPT/HCPCS: 71046; 74177; 80053; 81001; 83690; 83880; 84484; 85025; 87077; 87086; 87088; 87186; 87631; 93005; 94640; 96361; 96374; 99285; J7040; Q9967; A4216; J2405

== ENCOUNTER → 2024-08-03 | Outpatient (CLI) | payer MEDICARE, MEDICAID, SELFPAY ==
[2024-04-16 11:16] VITALS: BMI 41.0
[2024-08-03 12:13] LABS: Absolute Lymphocyte Count 2.45 X10^3/uL (0.83-4.51); Absolute Neutrophil Count 17.1 X10^3/uL (2.0-7.7); Basophil# 0.13 X10^3/uL; Basophil% 0.6 % (0-1); Eosinophil# 0.29 X10^3/uL; Eosinophils% 1.3 % (0-5); Lymphocyte # 2.45 X10^3/ul (0.83-4.51); Lymphocyte % 11.3 % (19-41); Mean Corpuscular Hgb 25.4 pg (27.0-32.0); Mean Corpuscular Volume 82.2 fL (81-99); Mean Platelet Vol. 8.4 fl (6.2-12.0); Monocyte# 1.29 X10^3/uL; NRBC Flagged by Analyzer 0 % (0-5); Neutrophil % 78.9 % (47-70); Platelet Count 391 K/mm3 (150-450); RBC Distribution Width SD 49.8 fl (35.1-43.9); Red Blood Count 5.11 M/mm3 (4.2-5.4); White Blood Count 21.7 K/mm3 (4.4-11.0)
== END | disposition home or self-care (01) ==
LOC: MTLAB 10:32
PROVIDERS: PCP Family Medicine; Referring Provider Family Medicine; Visit Provider Family Medicine
DX: K92.1 Melena (principal)
CPT/HCPCS: 36415; 85025

== ENCOUNTER 2024-09-21 08:48 | Day surgery (SDC) | payer MEDICARE, MEDICAID, SELFPAY ==
[2024-08-09 14:08] VITALS: BMI 41.0
--- NOTE | 2024-09-18 21:19 | PAT.ANESEVAL ---
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 When Was Last Pacemaker Check QUESTION #4 FULL TEXT: You/Your Family Experience fever (hyperthermia) with Anesthesia Last Oral Intake Last Oral intake: Last Oral Intake NPO since Meds taken in AM with sips of water? Meds patient instructed to take am of surgery PONV PONV - letterset press set up operator: PONV - letterset press set up operator Female Yes 09/18/24 10:30 HX of Motion Sickness No 09/18/24 10:30 HX of N/V After Surgery No 09/18/24 10:30 Non-Smoker Yes 09/18/24 10:30 Duration of Surgery greater No 09/18/24 10:30 than 60 minutes Number of Risk Factors 2 09/18/24 10:30 PONV Score Moderate Risk 09/18/24 10:30 Height & Weight Height & Weight: Anesthesia: Height & Weight Height 5 ft 09/07/24 13:33 Respiratory Assessment Respiratory Assessment - letterset press set up operator: Respiratory Tract Infection Hx - letterset press set up operator Hx Respiratory Tract Infection No 09/18/24 10:30 STOP Sleep Apnea STOP Sleep Apnea - letterset press set up operator: STOP Sleep Apnea - letterset press set up operator Hx Hypertension Yes: CONTROLLED WITH MEDS 09/18/24 10:30 Hx Sleep Apnea No 09/18/24 10:30 CPAP BIPAP Do you snore loudly (louder No 09/18/24 10:30 than talking or can be heard Do you often feel tired/ No 09/18/24 10:30 fatigued/ sleepy during daytime? Has anyone observed you stop No 09/18/24 10:30 breathing during sleep? STOP Results Negative 09/18/24 10:30 QUESTION #5 FULL TEXT : Do you snore loudly (louder than talking or can be heard through closed doors)? 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 Specify any problems Hx of Preganancy in last 3 No 09/18/24 10:30 Months Nurse Filling Out Transfusion [email or web address] 09/18/24 10:30 & Questions: Date: 09/18/24 09/18/24 10:30 Time: 10:35 09/18/24 10:30 Patient unable to answer at this time (ie. confused, unrespo /Reproduction History /Reproductive History - letterset press set up operator: /Reproductive Hx- letterset press set up operator Hx Now Gestational Age (in weeks): EDC: Hx Hx Para Hx Section SAB PFSH Medical History (Updated 09/18/24 @ 10:41 by Carlos Alberto Carnes) Wears dentures Wears glasses Thyroid disease Walker as ambulation aid Uses wheelchair Gastric reflux Former smoker Dependence on continuous supplemental oxygen Shortness of breath on exertion History of echocardiogram Hypoxia Gallstones BMI 40.0-44.9, adult Spinal stenosis Encounter for screening for malignant neoplasm of lung in current smoker with 30 pack year history or greater Tobacco use disorder, continuous Degenerative lumbar spinal stenosis Oral thrush Cough due to bronchospasm Dyspnea on exertion Arthritis Kidney stones GERD (gastroesophageal reflux disease) Hypertension Anxiety and depression COPD (chronic obstructive pulmonary disease) PTSD (post-traumatic stress disorder) Home Medications ?Medication ?Instructions ?Recorded ?Last Taken ?Type sertraline 100 mg tablet 200 mg PO DAILY depression 10/23/20 01/08/21 History aripiprazole 20 mg tablet 20 mg PO DAILY mood 01/06/21 01/08/21 History Pulse oximeter #1 ea 02/05/21 Unknown Rx blood pressure monitor (Blood #1 ea 02/05/21 Unknown Rx Pressure Kit) deepak (Ultra-Light Rollator misc) #1 ea 03/24/21 Unknown Rx underpads (Bed Underpads) #40 ea 02/16/22 Unknown Rx nebulizer 12/08/22 Unknown History budesonide 160 mcg-glycopyr 9 2 inh inhalation BID 03/24/23 Unknown History mcg-formot 4.8 mcg/actuation HFA inhaler (Breztri Aerosphere) levothyroxine 50 mcg tablet 50 mcg PO DAILY #30 tabs 08/09/23 Unknown Rx albuterol sulfate 90 mcg/actuation 2 puff inhalation Q4-6H PRN 12/01/23 Unknown History aerosol inhaler shortness of breath or wheezing pregabalin 150 mg capsule 150 mg PO TID 04/18/24 Unknown History albuterol sulfate 2.5 mg/3 mL 2.5 mg inhalation Q6H 06/21/24 Unknown History (0.083 %) solution for nebulization brinzolamide 1 % eye 1 drp ophthalmic (eye) BID 06/21/24 Unknown History drops,suspension bupropion HCl 300 mg 24 hr tablet, 300 mg PO DAILY 06/21/24 Unknown History extended release latanoprost 0.005 % eye drops 1 drp ophthalmic (eye) DAILY 06/21/24 Unknown History esomeprazole magnesium 40 mg 40 mg PO QDAY 09/07/24 Unknown History capsule,delayed release furosemide 20 mg tablet (Lasix) 20 mg PO QAM 09/07/24 Unknown History lisinopril 20 1 tab PO QDAY 09/07/24 Unknown History mg-hydrochlorothiazide 12.5 mg tablet roflumilast 500 mcg tablet 500 mcg PO QDAY 09/07/24 Unknown History Allergy/AdvReac Type Severity Reaction Status Date / Time Sulfa (Sulfonamide Allergy Vomiting Verified 09/18/24 10:25 Antibiotics) Family History Mother Diabetes Hypertension Breast cancer Father Heart disease Hypertension Myocardial infarction, Onset Age: 46 Surgical History (Updated 09/18/24 @ 10:41 by Carlos Alberto Carnes) Hx of hernia repair Hx of cholecystectomy History of hand surgery History of hysterectomy History of History of D&C Social History household members: none Smoking Status: Former smoker quit date: 01/03/21 Tobacco: How many years used: 36 alcohol intake: never substance use type: does not use what type of physical activity do you participate in: none Audit: Pertinent Findings Pertinent Findings EKG Perinent findings: July 20, 2024. Normal sinus rhythm. Echo (EF%) pertinent findings: January 05, 2022 ejection fraction is 70%. Right ventricular systolic pressure is 31 mmHg. No aortic stenosis noted. Pulmonary function results/spirometer pertinent findings: Chest x-ray done July 20, 2024. 1. Low lung volumes limited exam. No consolidations. 2. Prominence of interstitial markings unchanged since the previous exam. Recommendation Anesthesia Recommendation Anesthesia recommendation: OPTIMIZED for anesthesia
[2024-09-21] VITALS (8 sets, daily range): BP systolic 98–117; BP diastolic 58–78; PULSE 72–81; RESP 16–20; TEMP 36.2–36.6; O2SAT 90–100; BMI 43.0
[2024-09-21] MEDS: Ipratropium/Albuterol Sulfate 3 ML AMPUL.NEB INHALATION (09:46)
--- NOTE | 2024-09-21 09:48 | PCM.PRE.AN2 ---
ASA Classification* ASA Classification ASA Classification: 4 Assessment & Plan Anesthesia* Anesthesia Assessment Anesthesia Assessment: Discussed sedation and/or anesthesia options, risks, benefits, and alternatives with patient/parents/legal guardian/POA. Questions invited. The patient/parents/legal guardian/POA seems to understand and agrees to proceed with anesthesia plan. Reviewed the physical assessment, medical history, allergy history and patient home medications list prior to surgery/procedure/anesthetic and documented any changes. Performed airway and anesthesia risk assessments. Anesthesia Type Anesthesia Type: MAC Anesthesia Focused Assessment* Temperature: 97.9 F Pulse Rate: 76 Blood Pressure: 111/78 Respiratory Rate: 17 Pulse Ox: 95 Oxygen Delivery Method: Nasal Cannula Oxygen Flow Rate (L/min): 3 Airway Assessment Mouth opens: >3 cm Mallampati Score: II Teeth Condition: Dentures Neck Range of motion (ROM): Full ROM Comment: Wide neck Focused Labs Anesthesia Preop lab: CBC WBC 21.7 K/mm3 (4.4-11.0) H 08/03/24 10:34 RBC 5.11 M/mm3 (4.2-5.4) 08/03/24 10:34 Hgb 13.0 g/dL (12.0-15.0) 08/03/24 10:34 Hct 42.0 % (37-47) 08/03/24 10:34 Plt Count 391 K/mm3 (150-450) 08/03/24 10:34 CHEMISTRY Potassium 4.0 mmol/L (3.5-5.1) 07/20/24 03:08 Sodium 134 mmol/L (136-145) L 07/20/24 03:08 Magnesium 1.8 mg/dL (1.6-2.6) 11/27/22 03:05 BUN 17 mg/dL (7-18) 07/20/24 03:08 Creatinine 1.16 mg/dL (0.55-1.02) H 07/20/24 03:08 Glucose 127 mg/dL (74-106) H 07/20/24 03:08 POC Glucose 145 mg/dL (70-110) H 01/12/21 11:25 TSH 1.770 uIU/mL (0.358-3.740) 05/25/24 09:50 COAG PT 12.3 SECONDS (11.7-14.9) 09/06/23 10:30 Pre-Assessment Diagnosis/Proposed Procedure Planned Operative Procedure(s): EGD Anesthesia History 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 When Was Last Pacemaker Check QUESTION #4 FULL TEXT: You/Your Family Experience fever (hyperthermia) with Anesthesia Last Oral Intake Last Oral intake: Last Oral Intake NPO since 22:00 09/21/24 09:08 Meds taken in AM with sips of water? Meds patient instructed to take am of surgery PONV PONV - privacy compliance manager: PONV - privacy compliance manager Female Yes 09/18/24 10:30 HX of Motion Sickness No 09/18/24 10:30 HX of N/V After Surgery No 09/18/24 10:30 Non-Smoker Yes 09/18/24 10:30 Duration of Surgery greater No 09/18/24 10:30 than 60 minutes Number of Risk Factors 2 09/18/24 10:30 PONV Score Moderate Risk 09/18/24 10:30 Height & Weight Height & Weight: Anesthesia: Height & Weight Height 5 ft 09/21/24 09:08 Weight: 100 kg 09/21/24 09:08 Body Mass Index (BMI) 43.0 09/21/24 09:08 Respiratory Assessment Respiratory Assessment - privacy compliance manager: Respiratory Tract Infection Hx - privacy compliance manager Hx Respiratory Tract Infection No 09/18/24 10:30 STOP Sleep Apnea STOP Sleep Apnea - privacy compliance manager: STOP Sleep Apnea - privacy compliance manager Hx Hypertension Yes: CONTROLLED WITH MEDS 09/18/24 10:30 Hx Sleep Apnea No 09/18/24 10:30 CPAP BIPAP Do you snore loudly (louder No 09/18/24 10:30 than talking or can be heard Do you often feel tired/ No 09/18/24 10:30 fatigued/ sleepy during daytime? Has anyone observed you stop No 09/18/24 10:30 breathing during sleep? STOP Results Negative 09/18/24 10:30 QUESTION #5 FULL TEXT : Do you snore loudly (louder than talking or can be heard through closed doors)? 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 Specify any problems Hx of Preganancy in last 3 No 09/18/24 10:30 Months Nurse Filling Out Transfusion [email or web address] 09/18/24 10:30 & Questions: Date: 09/18/24 09/18/24 10:30 Time: 10:35 09/18/24 10:30 Patient unable to answer at this time (ie. confused, unrespo /Reproduction History /Reproductive History - privacy compliance manager: /Reproductive Hx- privacy compliance manager Hx Now Gestational Age (in weeks): EDC: Hx Hx Para Hx Section SAB [facility] Medical History Wears dentures Wears glasses Thyroid disease Walker as ambulation aid Uses wheelchair Gastric reflux Former smoker Dependence on continuous supplemental oxygen Shortness of breath on exertion History of echocardiogram Hypoxia Gallstones BMI 40.0-44.9, adult Spinal stenosis Encounter for screening for malignant neoplasm of lung in current smoker with 30 pack year history or greater Tobacco use disorder, continuous Degenerative lumbar spinal stenosis Oral thrush Cough due to bronchospasm Dyspnea on exertion Arthritis Kidney stones GERD (gastroesophageal reflux disease) Hypertension Anxiety and depression COPD (chronic obstructive pulmonary disease) PTSD (post-traumatic stress disorder) Home Medications ?Medication ?Instructions ?Recorded ?Last Taken ?Type sertraline 100 mg tablet 200 mg PO DAILY depression 10/23/20 01/08/21 History aripiprazole 20 mg tablet 20 mg PO DAILY mood 01/06/21 01/08/21 History Pulse oximeter #1 ea 02/05/21 Unknown Rx blood pressure monitor (Blood #1 ea 02/05/21 Unknown Rx Pressure Kit) walker (Ultra-Light Rollator misc) #1 ea 03/24/21 Unknown Rx underpads (Bed Underpads) #40 ea 02/16/22 Unknown Rx nebulizer 12/08/22 Unknown History budesonide 160 mcg-glycopyr 9 2 inh inhalation BID 03/24/23 Unknown History mcg-formot 4.8 mcg/actuation HFA inhaler (Breztri Aerosphere) levothyroxine 50 mcg tablet 50 mcg PO DAILY #30 tabs 08/09/23 Unknown Rx albuterol sulfate 90 mcg/actuation 2 puff inhalation Q4-6H PRN 12/01/23 Unknown History aerosol inhaler shortness of breath or wheezing pregabalin 150 mg capsule 150 mg PO TID 04/18/24 Unknown History albuterol sulfate 2.5 mg/3 mL 2.5 mg inhalation Q6H 06/21/24 Unknown History (0.083 %) solution for nebulization brinzolamide 1 % eye 1 drp ophthalmic (eye) BID 06/21/24 Unknown History drops,suspension bupropion HCl 300 mg 24 hr tablet, 300 mg PO DAILY 06/21/24 Unknown History extended release latanoprost 0.005 % eye drops 1 drp ophthalmic (eye) DAILY 06/21/24 Unknown History esomeprazole magnesium 40 mg 40 mg PO QDAY 09/07/24 Unknown History capsule,delayed release furosemide 20 mg tablet (Lasix) 20 mg PO QAM 09/07/24 Unknown History lisinopril 20 1 tab PO QDAY 09/07/24 Unknown History mg-hydrochlorothiazide 12.5 mg tablet roflumilast 500 mcg tablet 500 mcg PO QDAY 01/10/25 Unknown History Allergy/AdvReac Type Severity Reaction Status Date / Time Sulfa (Sulfonamide Allergy Vomiting Verified 09/21/24 09:06 Antibiotics) Family History Mother Diabetes Hypertension Breast cancer Father Heart disease Hypertension Myocardial infarction, Onset Age: 46 Surgical History Hx of hernia repair Hx of cholecystectomy History of hand surgery History of hysterectomy History of History of D&C Social History household members: none Smoking Status: Former smoker quit date: 01/03/21 Tobacco: How many years used: 36 alcohol intake: never substance use type: does not use what type of physical activity do you participate in: none Review of Systems (Anesthesia) ROS Narrative System reviewed and no additional complaints, except as documented. Physical Exam Const alert General Appearance: anxious Orientation / Consciousness: awake Nutritional Appearance: obese Chest Chest Narrative: . Resp Resp Narrative: Poor basal air Auscultation: crackles GI Inspection: abdominal distention Back/Spine normal ROM Cervical Spine: cervical ROM abnormal
--- NOTE | 2024-09-21 09:53 | HP.PCM_ITS ---
History and Physical Date of Admission: 09/21/24 Intake Vital Signs 08/09/2414:08 09/07/2512:33 Height 5 ft 5 ft Weight: 221 lb BMI 43.1 BP 117/81 H Blood Pressure Location Rt brachial Position Sitting Respiration 19 H Pulse 82 Pulse Source Monitor Pulse Oximetry (%) 90 Oxygen Delivery Method nasal canula Oxygen Flow Rate (L/min) 3 Intake Visit Reasons: Gastroesophageal reflux disease (GERD) Chief Complaint: gerd Is patient in pain?: Yes Allergies Sulfa (Sulfonamide Antibiotics) Allergy (Verified 09/07/24 13:35) Vomiting Medications ?Medication ?Instructions ?Recorded ?Confirmed ?Type sertraline 100 mg tablet 200 mg PO DAILY depression 10/23/20 09/07/24 History aripiprazole 20 mg tablet 20 mg PO DAILY mood 01/06/21 09/07/24 History Pulse oximeter #1 ea 02/05/21 09/05/24 Rx blood pressure monitor (Blood #1 ea 02/05/21 09/05/24 Rx Pressure Kit) walker (Ultra-Light Rollator misc) #1 ea 03/24/21 09/05/24 Rx underpads (Bed Underpads) #40 ea 02/16/22 09/05/24 Rx nebulizer 12/08/22 09/05/24 History budesonide 160 mcg-glycopyr 9 2 inh inhalation BID 03/24/23 09/07/24 History mcg-formot 4.8 mcg/actuation HFA inhaler (Breztri Aerosphere) levothyroxine 50 mcg tablet 50 mcg PO DAILY #30 tabs 08/09/23 09/07/24 Rx albuterol sulfate 90 mcg/actuation 2 puff inhalation Q4-6H PRN 12/01/23 09/07/24 History aerosol inhaler shortness of breath or wheezing pregabalin 150 mg capsule 150 mg PO BID 04/18/24 09/07/24 History albuterol sulfate 2.5 mg/3 mL 2.5 mg inhalation Q6H 06/21/24 09/07/24 History (0.083 %) solution for nebulization brinzolamide 1 % eye 1 drp ophthalmic (eye) BID 06/21/24 09/07/24 History drops,suspension bupropion HCl 300 mg 24 hr tablet, 300 mg PO DAILY 06/21/24 09/07/24 History extended release ergocalciferol (vitamin D2) 1,250 1,250 mcg PO QWEEK 06/21/24 09/07/24 History mcg (50,000 unit) capsule latanoprost 0.005 % eye drops 1 drp ophthalmic (eye) DAILY 06/21/24 09/07/24 History esomeprazole magnesium 40 mg 40 mg PO QDAY 09/07/24 09/07/24 History capsule,delayed release furosemide 20 mg tablet (Lasix) 20 mg PO QAM 09/07/24 09/07/24 History lisinopril 20 1 tab PO QDAY 09/07/24 09/07/24 History mg-hydrochlorothiazide 12.5 mg tablet roflumilast 500 mcg tablet 500 mcg PO QDAY 09/07/24 09/07/24 History Have you fallen in the past year?: No PFSH Medical History Hypoxia Gallstones BMI 40.0-44.9, adult Spinal stenosis Encounter for screening for malignant neoplasm of lung in current smoker with 30 pack year history or greater Tobacco use disorder, continuous Degenerative lumbar spinal stenosis Oral thrush Cough due to bronchospasm Dyspnea on exertion Arthritis Kidney stones GERD (gastroesophageal reflux disease) Hypertension Anxiety and depression COPD (chronic obstructive pulmonary disease) PTSD (post-traumatic stress disorder) Surgical History Hx of hernia repair Hx of cholecystectomy History of hand surgery History of hysterectomy History of History of D&C Family History Mother Diabetes Hypertension Breast cancerFather Heart disease Hypertension Myocardial infarction, Onset Age: 46 Social History household members: none Smoking Status: Former smoker quit date: 01/03/21 Tobacco: How many years used: 36 alcohol intake: never substance use type: does not use what type of physical activity do you participate in: none HPI HPI HPI: Patient is a 68-year-old female here for reflux. She says that it is bad especially after she eats. She is also having a choking sensation after she eats. ROS General General: Yes fatigue; No weight change, appetite, colon cancer, breast cancer or weakness HEENT HEENT: Yes difficulty swallowing and eye surgery; No eye injury, swollen glands or hoarseness Endo Endocrine: Yes thyroid disease; No diabetes mellitus, thyroid cancer, Hair loss, heat intolerance or cold intolerance Skin Skin: No rash or changing moles Musc Musculoskeletal: Yes back problems and arthritis; No rheumatoid arthritis, gout or joint pain Cardio Cardiovascular: Yes murmur and high blood pressure; No pacemaker, heart disease, atrial fibrillation, heart attack, heart stent, palpitations, shortness of breat with exertion or chest pain Psych Psychiatric: Yes depression and anxiety; No hearing voices Resp Respiratory: Yes shortness of breath, No sleep apnea, Yes cough, Yes COPD, No asthma, No emphysema and No wheezing Gastro Gastrointestinal: No abdominal pain, Yes nausea or vomiting, No diarrhea, No constipation, No blood in stool, Yes acid reflux, Yes hemorrhoids, Yes ulcers, Yes gallbladder problem and No black,tarry stools Shen Hematologic: No blood thinners, No blood disorders, No bleeding, No anemia and No blood clots Neuro Neurologic: No system reviewed and no additional complaints, except as documented, No as per HPI, No abnormal gait, No abnormal hearing, No abnormal movements, No abnormal speech, No behavioral changes, No burning sensations, No confusion, No convulsions, No disequilibrium, No dizziness, No localized weakness, No frequent falls, No headache(s), No lack of coordination, No loss of vision, No memory loss, No numbness, No other visual disturbances, No radicular pain, No restless legs, No sensory deficit, No syncope, No tingling, No tremor(s), No weakness and No other Exam Const General: cooperative Orientation: alert and oriented x3 HENSD Head: normal to inspection Neck Neck: normal visual inspection and full ROM Chest Chest palpation & inspection: normal inspection of the chest Resp Effort & Inspection: normal respiratory effort Auscultation: clear to auscultation bilaterally Cardio Rate: regular rate Rhythm: regular rhythm GI Inspection: non-distended Palpation: soft and nontender Skin General: no rashes or lesions noted Neuro General: patient alert and patient oriented x3 Extrem General: full ROM Psych Appearance: grossly normal Mental Status: mental status grossly normal Assessment and Plan Assessment and Plan (1) GERD (gastroesophageal reflux disease): Status: Chronic Plan: Patient has been having choking sensation after eating as well as reflux. She is on a PPI. I will plan to perform an EGD to evaluate. I explained endoscopy in detail to the patient. I explained the risks including but not limited to stroke or heart attack with anesthesia, perforation of the GI tract, bleeding, infection. I explained that any of these could necessitate further emergency surgery. The patient understands and all questions were answered sufficiently. The patient wishes to proceed with procedure. Jose De Souza MD Pager: [facility] [address] [place] [address] [address] [place] [address] Office: I have examined the patient and the H&P has been reviewed. There are no clinical changes since date of exam.
--- NOTE | 2024-09-21 10:12 | OP.EGD_ITS ---
Patient Name: Janina Heart Procedure Date: 09/21/2024 9:57 AM Date of : 1955 Age: 68 Procedure: Upper GI endoscopy Indications: Suspected esophageal reflux, Globus sensation Providers: Jose De Souza MD Referring MD: Tre Weston Md Medicines: Propofol per Anesthesia Patient Profile: This is a 68 year old female. Refer to note in patient chart for documentation of history and physical. Complications: No immediate complications. Procedure: Pre-Anesthesia Assessment: - Prior to the procedure, a History and Physical was performed, and patient medications and allergies were reviewed. The patient's tolerance of previous anesthesia was also reviewed. The risks and benefits of the procedure and the sedation options and risks were discussed with the patient. All questions were answered, and informed consent was obtained. Prior Anticoagulants: The patient has taken no anticoagulant or antiplatelet agents. After reviewing the risks and benefits, the patient was deemed in satisfactory condition to undergo the procedure. After obtaining informed consent, the endoscope was passed under direct vision. Throughout the procedure, the patient's blood pressure, pulse, and oxygen saturations were monitored continuously. The Endoscope was introduced through the mouth, and advanced to the fourth part of duodenum. The upper GI endoscopy was accomplished without difficulty. The patient tolerated the procedure well. Scope In: 10:07:37 AM Scope Out: 10:10:08 AM Total Procedure Duration Time 0 hours 2 minutes 31 seconds Findings: The esophagus was normal. The stomach was normal. The examined duodenum was normal. Impression: - Normal esophagus. - Normal stomach. - Normal examined duodenum. - No specimens collected. Recommendation: - Discharge patient to home. - Resume previous diet. - Continue present medications. Procedure Code(s): --- Professional --- 45594, Esophagogastroduodenoscopy, flexible, transoral; diagnostic, including collection of specimen(s) by brushing or washing, when performed (separate procedure) Diagnosis Code(s): --- Professional --- F45.8, Other somatoform disorders CPT copyright 2021 [employer]. All rights reserved. The codes documented in this report are preliminary and upon manufacturing technology professor review may be revised to meet current compliance requirements. Jose De Souza MD 09/21/2024 10:12:22 AM This report has been signed electronically. Number of Addenda: 0 Note Initiated On: 09/21/2024 9:57 AM
--- NOTE | 2024-09-21 10:13 | OP.CCLET_ITS ---
09/21/2024 Tre Weston Md Re : Upper GI endoscopy procedure for Janina Heart Dear Trista This procedure was performed on Saturday, September 21, 2024. My impressions and recommendations are as follows: Impressions : - Normal esophagus. - Normal stomach. - Normal examined duodenum. - No specimens collected. Recommendations : - Discharge patient to home. - Resume previous diet. - Continue present medications. My findings are described in the full procedure note, which is enclosed. If I can be of further assistance, please feel free to contact me at Doctor phone number(s): , Work: . Sincerely, Jose De Souza MD 09/21/2024 10:12:22 AM This report has been signed electronically.
--- NOTE | 2024-09-21 10:19 | PCM.POST.ANE ---
Anesthesia: Postop Eval I Current Vital Signs Temperature: 97.1 F Pulse Rate: 78 Blood Pressure: 102/68 Respiratory Rate: 18 Pulse Ox: 90 Oxygen Delivery Method: Nasal Cannula Oxygen Flow Rate (L/min): 3 Assessment Airway patent: Yes Spontaneous unlabored respirations: Yes Mental status: Awake and Calm nausea: No Vomiting: No Anesthesia Complication: No Fluid Hydration Crystalloid volume administer (ml): 30 Total IV fluid infused: 30 Progress Note Anesthesia document: Postop Eval 1 completed: Yes
--- NOTE | 2024-09-21 10:47 | PCM.POSTANE2 ---
Anesthesia Postop Eval I Sum Postop Eval Completion status Anesthesia document: Postop Eval 1 completed: Yes Anesthesia Postop Eval I Summary Anesthesia Postop Eval I Summary: Anesthesia Postop Eval I: Assessment Summary Airway patent Yes 09/21/24 10:20 [email or web address] Spontaneous unlabored Yes 09/21/24 10:20 [email or web address] respirations Mental status Awake,Calm 09/21/24 10:20 [email or web address] nausea No 09/21/24 10:20 [email or web address] Vomiting No 09/21/24 10:20 [email or web address] Anesthesia Postop Eval I: Fluid Summary Crystalloid volume administer 30 09/21/24 10:20 [email or web address] (ml) Colloids volume administered ( ml) Blood Product volume administered (ml) Total IV fluid infused 30 09/21/24 10:20 [email or web address] Anesthesia Postop Eval I: Summary Notes Anesthesia Complication No 09/21/24 10:20 [email or web address] Anesthesia Complication Comment: Post-operative progress note Anesthesia: Postop Eval II Evaluation Mental status: Awake Pain Level: 1 nausea: No Vomiting: No Complications Anesthesia Complication: No
== END 2024-09-21 10:53 | disposition home or self-care (01) ==
LOC: EN 08:48 → AC 08:49
PROVIDERS: PCP Family Medicine; Referring Provider Family Medicine; Visit Provider Surgery
PROC: 0DJ08ZZ Inspection of Upper Intestinal Tract, Via Natural or Artificial Opening Endoscopic (ICD-10-PCS; CPT 43235; principal; 2024-09-21 09:55)
DX: K21.9 Gastro-esophageal reflux disease without esophagitis (principal); J44.9 Chronic obstructive pulmonary disease, unspecified; Z87.891 Personal history of nicotine dependence; I10 Essential (primary) hypertension; Z79.899 Other long term (current) drug therapy; F45.8 Other somatoform disorders
CPT/HCPCS: 43235; 94640; A4216; J2405

== ENCOUNTER → 2024-10-24 | Outpatient (CLI) | payer MEDICARE, MEDICAID, SELFPAY ==
[2024-08-09 14:08] VITALS: BMI 41.0
--- NOTE | 2024-10-24 12:41 | RAD_ITS ---
PROCEDURE: CHEST PA AND LATERAL REASON FOR EXAM: SOB. TECHNIQUE: Frontal view of the chest. COMPARISON: 07/20/2024. FINDINGS: The cardiac and mediastinal contours are normal. Interstitial prominence is similar to the prior exam. RAD/Chest PA and Lateral IMPRESSION: Interstitial prominence is similar to the prior exam may represent chronic inte rstitial changes. Superimposed pneumonitis or edema can not be excluded. Reading Location: [place] [address]
[2024-10-24 15:21] LABS: Hematocrit 39.5 % (37-47); Mean Corp Hgb Conc 30.4 g/dL (32-36); Mean Corpuscular Volume 78.8 fL (81-99); Mean Platelet Vol. 8.6 fl (6.2-12.0); Platelet Count 374 K/mm3 (150-450); RBC Distribution Width CV 15.9 % (11.6-14.6); RBC Distribution Width SD 45.1 fl (35.1-43.9); Red Blood Count 5.01 M/mm3 (4.2-5.4); White Blood Count 13.7 K/mm3 (4.4-11.0)
[2024-10-24 19:24] LABS: ALB/GLOB Ratio 1.3 RATIO (0.9-2.4); AST(SGOT) 32 U/L (<=31); Alanine Aminotransfer ALT/SGPT 25 U/L (<=34); Albumin, Serum 4.1 g/dL (3.4-4.8); Alkaline Phosphatase 143 U/L (35-104); Anion Gap 14 (5-15); BUN 10 mg/dL (4-19); Calcium 10.3 mg/dL (7.6-11.0); Carbon Dioxide 29.4 mmol/L (22.0-29.0); Chloride 95 mmol/L (96-108); Creatinine, Serum 0.9 mg/dL (0.6-1.0); EST Glomerular Filtration Rate 68 (>60); Globulin 3.1 g/dL (2.2-4.2); Glucose 87 mg/dL (70-99); Protein, Total 7.2 g/dL (5.9-8.4); Sodium Level 138 mmol/L (133-145); Total Bilirubin 0.23 mg/dL (0.00-1.30)
== END | disposition home or self-care (01) ==
LOC: MTLAB 12:39
PROVIDERS: PCP Family Medicine
DX: J44.1 Chronic obstructive pulmonary disease with (acute) exacerbation (principal)
CPT/HCPCS: 36415; 71046; 80053; 85027

== ENCOUNTER → 2024-11-27 | Outpatient (CLI) | payer MEDICARE, MEDICAID, SELFPAY ==
[2024-08-09 14:08] VITALS: BMI 41.0
--- NOTE | 2024-11-27 15:20 | BD_ITS ---
PROCEDURE: DEXA BONE DENSITY STUDY REASON FOR EXAM: None provided TECHNIQUE: DEXA scan of the lumbar spine and bilateral hips, using a Hologic Horizon W unit. REFERENCE LINKS: ISCD Adult Positions COMPARISON: None FINDINGS: LUMBAR SPINE: Bone mineral denisty, L1 and L4: 1.057 g/cm???, potentially artificially elevated by hypertrophic bony degenerative changes. T-score: 0.2 LEFT FEMORAL NECK: Bone mineral denisty: 0.585 g/cm??? T-score: -2.4 LEFT TOTAL HIP: Bone mineral denisty: 0.821 g/cm??? T-score: -1.0 RIGHT FEMORAL NECK: Bone mineral denisty: 0.633 g/cm??? T-score: -2.0 RIGHT TOTAL HIP: Bone mineral denisty: 0.808 g/cm??? T-score: -1.1 FRAX*: 10 Year Probability of Fracture: Major Osteoporotic Fracture(1): 18.0% Hip Fracture(2): 4.5% *FRAX is a trademark of the [employer]'s [employer] for Metabolic Bone Disease, World Health Organization (WHO) Collaborating [employer]. 1-Major Osteoporotic Fracture: Clinical Spine, Forearm, Hip or Shoulder. 2-The 10-year probability of fracture may be lower than reported if the patient has received treatment. BD/Dexa Bone Density Study IMPRESSION: 1. Bone mineral denisty is borderline but technically very osteopenic. 2. No prior exams are available for comparison. 3. Additional description as above. Reading Location: [facility]
== END | disposition home or self-care (01) ==
LOC: OPBD 15:19
PROVIDERS: PCP Family Medicine; Referring Provider Nurse Practitioner Family; Visit Provider Nurse Practitioner Family
DX: Z13.820 Encounter for screening for osteoporosis (principal); M81.0 Age-related osteoporosis without current pathological fracture
CPT/HCPCS: 77080

== ENCOUNTER → 2024-12-03 | Outpatient (CLI) | payer MEDICARE, MEDICAID, SELFPAY ==
[2024-08-09 14:08] VITALS: BMI 41.0
== END | disposition home or self-care (01) ==
LOC: LABSPEC 08:02
PROVIDERS: PCP Family Medicine; Visit Provider Nurse Practitioner Family
DX: R82.90 Unspecified abnormal findings in urine (principal)
CPT/HCPCS: 87086; 87088; 87186

== ENCOUNTER → 2024-12-07 | Outpatient (CLI) | payer MEDICARE, MEDICAID, SELFPAY ==
[2024-08-09 14:08] VITALS: BMI 41.0
--- NOTE | 2024-12-07 12:45 | US_ITS ---
PROCEDURE: KIDNEY AND BLADDER 12/07/2024 REASON FOR EXAM: UTI TECHNIQUE: Bilateral renal ultrasound. COMPARISON: None. FINDINGS: Kidneys: Normal renal sizes, parenchymal thicknesses, and echotextures. No hydronephrosis or renal calculi. Cysts or Masses: No cysts or large solid renal masses. Other: None. RIGHT Kidney Size: 11.2 x 5.7 x 4.3 cm Volume: 143 mL Parenchymal Thickness: 11 mm (>14mm is normal) LEFT Kidney Size: 10.3 x 5.2 x 4.9 cm Volume: 136 mL Parenchymal Thickness: 15 mm (>14mm is normal) Urinary bladder: The urinary bladder is minimally distended with normal wall thickness. Nonvisualization of the bilateral ureters. US/Kidney and Bladder IMPRESSION: NORMAL RENAL ULTRASOUND. Reading Location: [id number]
== END | disposition home or self-care (01) ==
LOC: US 12:44
PROVIDERS: PCP Family Medicine; Referring Provider Urology; Visit Provider Urology
DX: N39.0 Urinary tract infection, site not specified (principal)
CPT/HCPCS: 76770

== ENCOUNTER → 2024-12-14 | Outpatient (CLI) | payer MEDICARE, MEDICAID, SELFPAY ==
[2024-08-09 14:08] VITALS: BMI 41.0
--- NOTE | 2024-12-14 18:37 | CT_ITS ---
PROCEDURE: CHEST WITHOUT CONTRAST 12/14/2024 REASON FOR EXAM: LUNG NODLUES TECHNIQUE: Chest CT without contrast. Coronal and Sagittal reconstruction series were provided. One or more dose reduction techniques were used (e.g., Automated exposure control, adjustment of the mA and/or kV according to patient size, use of iterative reconstruction technique RADIATION DOSE SUMMARY: CTDlvol: 19.3 mGy DLP: 666 mGycm COMPARISON: Chest radiograph on 10/24/2024. FINDINGS: Mild diffuse gaseous dilatation of the esophagus, probably reflux. Moderate diffuse spondylosis. No pulmonary nodule or mass lesion is identified. Bilateral basilar atelectatic pulmonary changes. Mild bilateral basilar chronic interstitial pulmonary thickening. Moderate emphysema. Scattered paraseptal blebs are noted in the left lower lobe. Hepatomegaly. Hepatic steatosis. Mild diffuse irregularity of the hepatic contour, probably chronic parenchymal liver disease. Prior cholecystectomy. Normal unenhanced main pulmonary artery and right and left pulmonary arteries. Normal bilateral peripheral pulmonary arteries. Mild atheromatous plaques of the thoracic aorta and visualized great vessels. There is no demonstrated aortic aneurysm. Normal pericardium. Normal mediastinum. Normal hilar regions. Normal visualized trachea and thickened bronchi. Normal pleura. CT/Chest without Contrast IMPRESSION: 1. Coronary artery calcification (CAC) is is present 2. Mild diffuse gaseous dilatation of the esophagus, probably reflux. 3. Moderate diffuse spondylosis. 4. No pulmonary nodule or mass lesion is identified. 5. Bilateral basilar atelectatic pulmonary changes. 6. Mild bilateral basilar chronic interstitial pulmonary thickening. 7. Moderate emphysema. 8. Scattered paraseptal blebs are noted in the left lower lobe. 9. Hepatomegaly. 10. Hepatic steatosis. 11. Mild diffuse irregularity of the hepatic contour, probably chronic parenchy mal liver disease. 12. Prior cholecystectomy. 13. No pneumonic consolidation is identified. Reading Location[facility] [id number]
== END | disposition home or self-care (01) ==
LOC: CT 18:35
PROVIDERS: PCP Family Medicine; Referring Provider Nurse Practitioner Family; Visit Provider Nurse Practitioner Family
DX: R91.8 Other nonspecific abnormal finding of lung field (principal)
CPT/HCPCS: 71250

== ENCOUNTER 2025-01-04 07:56 | Day surgery (SDC) | payer MEDICARE, MEDICAID, SELFPAY ==
[2024-08-09 14:08] VITALS: BMI 41.0
--- NOTE | 2025-01-02 14:19 | PAT.ANE_ITS ---
Pre-Assessment Diagnosis/Proposed Procedure Planned Operative Procedure(s): CSCOPE Anesthesia History Anesthesia History - air quality consultant: Anesthesia History - air quality consultant Hx Hospitalization No 01/02/25 12:01 Any Problems With Anesthesia No: AWAKENED DURING CSECTION 01/02/25 12:01 MANY YRS Cholinesterase deficiency No 01/02/25 12:01 You/Your Family Experience No 01/02/25 12:01 fever (hyperthermia) with Relationship Recent Exposure to Contagious No 09/21/24 09:08 Disease Does patient have nerve No 01/02/25 12:01 stimulator Patient instructed to have device shut off --Does patient have Pacemaker or ICD? When Was Last Pacemaker Check QUESTION #4 FULL TEXT: You/Your Family Experience fever (hyperthermia) with Anesthesia Last Oral Intake Last Oral intake: Last Oral Intake NPO since Meds taken in AM with sips of water? Meds patient instructed to take am of surgery PONV PONV - air quality consultant: PONV - air quality consultant Female Yes 01/02/25 12:01 HX of Motion Sickness No 01/02/25 12:01 HX of N/V After Surgery No 01/02/25 12:01 Non-Smoker Yes 01/02/25 12:01 Duration of Surgery greater No 01/02/25 12:01 than 60 minutes Number of Risk Factors 2 01/02/25 12:01 PONV Score Moderate Risk 01/02/25 12:01 Height & Weight Height & Weight: Anesthesia: Height & Weight Height 5 ft 12/06/24 08:49 Respiratory Assessment Respiratory Assessment - air quality consultant: Respiratory Tract Infection Hx - air quality consultant Hx Respiratory Tract Infection No 01/02/25 12:01 STOP Sleep Apnea STOP Sleep Apnea - air quality consultant: STOP Sleep Apnea - air quality consultant Hx Hypertension Yes: CONTROLLED WITH MEDS 01/02/25 12:01 Hx Sleep Apnea No 01/02/25 12:01 CPAP BIPAP Do you snore loudly (louder Yes 01/02/25 12:01 than talking or can be heard Do you often feel tired/ No 01/02/25 12:01 fatigued/ sleepy during daytime? Has anyone observed you stop No 01/02/25 12:01 breathing during sleep? STOP Results Positive 01/02/25 12:01 QUESTION #5 FULL TEXT : Do you snore loudly (louder than talking or can be heard through closed doors)? Tobacco Use History Tobacco Use History - air quality consultant: Tobacco Use History - air quality consultant Tobacco Use Cigarettes 08/09/24 14:08 Smoking Status Former smoker 01/02/25 12:01 Hx Tobacco Use No 01/02/25 12:01 Years Smoking Packs Smoked per Day Smoking Cessation Date was Yes - quit smoking within 15 01/02/25 12:01 within the last 15 years years Hx Smoking Cessation Date 08/24/20 01/02/25 12:01 Hx Smoking Cessation No 01/02/25 12:01 Counseling Hematologic Medial History Hematologic Hx - air quality consultant: Hematologic Medical Hx - critical care transport nurse Hx of Blood Transfusion No 01/02/25 12:01 Hx of Transfusion in last 3 No 01/02/25 12:01 Months Date of Last Transfusion (if within last 3 months) Ever experience any problems No 01/02/25 12:01 with transfusion(s)? Specify any problems Hx of Preganancy in last 3 No 01/02/25 12:01 Months Nurse Filling Out Transfusion DSCHRIBER 01/02/25 12:01 & Questions: Date: 01/02/25 01/02/25 12:01 Time: 12:05 01/02/25 12:01 Patient unable to answer at this time (ie. confused, unrespo /Reproduction History /Reproductive History - air quality consultant: /Reproductive Hx- air quality consultant Hx Now No 01/02/25 12:01 Gestational Age (in weeks): EDC: Hx Hx Para Hx Section SAB No 01/02/25 12:01 PFSH Medical History (Updated 01/02/25 @ 12:12 by Brooke Dunaway) Bladder disease History of pain when walking History of rheumatic fever History of ESBL E. coli infection Wears dentures Wears glasses Thyroid disease Walker as ambulation aid Uses wheelchair Gastric reflux Former smoker Dependence on continuous supplemental oxygen Shortness of breath on exertion History of echocardiogram Hypoxia BMI 40.0-44.9, adult Spinal stenosis Encounter for screening for malignant neoplasm of lung in current smoker with 30 pack year history or greater Degenerative lumbar spinal stenosis Oral thrush Cough due to bronchospasm Dyspnea on exertion Arthritis Kidney stones GERD (gastroesophageal reflux disease) Hypertension Anxiety and depression COPD (chronic obstructive pulmonary disease) PTSD (post-traumatic stress disorder) Home Medications ?Medication ?Instructions ?Recorded ?Last Taken ?Type sertraline 100 mg tablet 200 mg PO DAILY depression 0 10/23/20 01/08/21 History aripiprazole 20 mg tablet 20 mg PO DAILY mood 01/06/21 01/08/21 History Pulse oximeter #1 ea 02/05/21 Unknown Rx blood pressure monitor (Blood #1 ea 02/05/21 Unknown R x Pressure Kit) deepak (Ultra-Light Rollator misc) #1 ea 03/24/21 Unkn own Rx underpads (Bed Underpads) #40 ea 02/16/22 Unknown Rx nebulizer 12/08/22 Unknown History budesonide 160 mcg-glycopyr 9 2 inh inhalation BID Unknown History mcg-formot 4.8 mcg/actuation HFA inhaler (Breztri Aerosphere) levothyroxine 50 mcg tablet 50 mcg PO DAILY #30 tabs 1 10/10/22 Unknown Rx albuterol sulfate 90 mcg/actuation 2 puff inhalation Q 4-6H PRN 12/01/23 Unknown History aerosol inhaler shortness of breath or wheez ing pregabalin 150 mg capsule 150 mg PO TID 04/18/24 Unkno wn History albuterol sulfate 2.5 mg/3 mL 2.5 mg inhalation Q6H RI N 06/21/24 Unknown History (0.083 %) solution for nebulization shortness of breat h or wheezing bupropion HCl 300 mg 24 hr tablet, 300 mg PO DAILY Unknown History extended release esomeprazole magnesium 40 mg 40 mg PO QDAY 09/07/24 Un known History capsule,delayed release lisinopril 20 1 tab PO QDAY 09/07/24 Unkno wn History mg-hydrochlorothiazide 12.5 mg tablet roflumilast 500 mcg tablet 500 mcg PO QDAY 09/07/24 Un known History d-mannose 500 mg capsule 1,000 mg PO BID 01/02/25 Unk nown History estradiol 0.01% (0.1 mg/gram) 1 appful vaginal MOWEFR 01/02/25 Unknown History vaginal cream hydroxyzine HCl 25 mg tablet 25 mg PO TID PRN anxiety 01/02/25 Unknown History nystatin 100,000 unit/mL oral 5 ml PO PRN PRN THRUSH 0 01/02/25 Unknown History suspension Allergy/AdvReac Type Severity Reaction Status Date / Time Sulfa (Sulfonamide Allergy Vomiting Verified 01/02/25 11:52 Antibiotics) Family History Mother Diabetes Hypertension Breast cancer Father Heart disease Hypertension Myocardial infarction, Onset Age: 46 Surgical History (Updated 01/02/25 @ 12:12 by Brooke Dunaway) History of esophagogastroduodenoscopy (EGD) Hx of hernia repair Hx of cholecystectomy History of hand surgery History of hysterectomy History of History of D&C Social History household members: none Smoking Status: Former smoker quit date: 01/03/21 Tobacco: How many years used: 36 alcohol intake: never substance use type: does not use what type of physical activity do you participate in: none Audit: Pertinent Findings Pertinent Findings EKG Perinent findings: 06/2024: NSR Echo (EF%) pertinent findings: 12/2021: LVEF 70%. RVSP 31. Mild MV & TV insuffiency, wiht mild aortic valve thickening and trivial aortic valve insuffiency. No evidence for diastolic dysfunction Recommendation Anesthesia Recommendation Anesthesia recommendation: OPTIMIZED for anesthesia
[2025-01-04] VITALS (8 sets, daily range): BP systolic 132–141; BP diastolic 65–95; PULSE 80–89; RESP 16–19; TEMP 36–36.2; O2SAT 94–98; BMI 47.3
[2025-01-04] MEDS: Lactated Ringers 1,000 ML 15 ML IV (08:51)
--- NOTE | 2025-01-04 09:15 | PRE.ANES_ITS ---
ASA Classification* ASA Classification ASA Classification: 3 Assessment & Plan Anesthesia* Anesthesia Assessment Anesthesia Assessment: Discussed sedation and/or anesthesia options, risks, benefits, and alternatives with patient/parents/legal guardian/POA. Questions invited. The patient/parents/legal guardian/POA seems to understand and agrees to proceed with anesthesia plan. Reviewed the physical assessment, medical history, allergy history and patient home medications list prior to surgery/procedure/anesthetic and documented any changes. Performed airway and anesthesia risk assessments. Anesthesia Type Anesthesia Type: MAC History Source History Obtained from:: Patient and Chart Anesthesia Focused Assessment* Temperature: 97.1 F Pulse Rate: 80 Blood Pressure: 135/65 Respiratory Rate: 19 Pulse Ox: 97 Oxygen Delivery Method: Nasal Cannula (3L at all times even at home) Oxygen Flow Rate (L/min): 3 Airway Assessment Mouth opens: >3 cm Mallampati Score: II Teeth Condition: Dentures and Full Neck Range of motion (ROM): Full ROM Focused Labs Anesthesia Preop lab: CBC WBC 13.7 K/mm3 (4.4-11.0) H 10/24/24 12:41 5 RBC 5.01 M/mm3 (4.2-5.4) 10/24/24 12:41 10/24/24 Hgb 12.0 g/dL (12.0-15.0) 10/24/24 12:41 10/24/24 Hct 39.5 % (37-47) 10/24/24 12:41 10/24/24 Plt Count 374 K/mm3 (150-450) 10/24/24 12:41 10/24/24 CHEMISTRY Potassium 4.0 mmol/L (3.3-5.1) 10/24/24 12:41 10/24/24 Sodium 138 mmol/L (133-145) 10/24/24 12:41 10/24/24 Magnesium 1.8 mg/dL (1.6-2.6) 11/27/22 03:05 11/27/22 BUN 10 mg/dL (4-19) 10/24/24 12:41 10/24/24 Creatinine 0.9 mg/dL (0.6-1.0) 10/24/24 12:41 10/24/24 Glucose 87 mg/dL (70-99) 10/24/24 12:41 10/24/24 POC Glucose 145 mg/dL (70-110) H 01/12/21 11:25 01/12/21 TSH 1.770 uIU/mL (0.358-3.740) 05/25/24 09:50 04/30 03/21 COAG PT 12.3 SECONDS (11.7-14.9) 09/06/23 10:30 Pre-Assessment Diagnosis/Proposed Procedure Planned Operative Procedure(s): CSCOPE Anesthesia History Anesthesia History - green chain marker: Anesthesia History - green chain marker Hx Hospitalization No 01/02/25 12:01 Any Problems With Anesthesia No: AWAKENED DURING CSECTION 01/02/25 12:01 MANY YRS Cholinesterase deficiency No 01/02/25 12:01 You/Your Family Experience No 01/02/25 12:01 fever (hyperthermia) with Relationship Recent Exposure to Contagious No 01/04/25 08:45 Disease Does patient have nerve No 01/02/25 12:01 stimulator Patient instructed to have device shut off --Does patient have Pacemaker No 01/04/25 08:45 or ICD? When Was Last Pacemaker Check QUESTION #4 FULL TEXT: You/Your Family Experience fever (hyperthermia) with Anesthesia Last Oral Intake Last Oral intake: Last Oral Intake NPO since 12:00 01/04/25 08:45 Meds taken in AM with sips of No 01/04/25 08:45 water? Meds patient instructed to take am of surgery PONV PONV - green chain marker: PONV - green chain marker Female Yes 01/02/25 12:01 HX of Motion Sickness No 01/02/25 12:01 HX of N/V After Surgery No 01/02/25 12:01 Non-Smoker Yes 01/02/25 12:01 Duration of Surgery greater No 01/02/25 12:01 than 60 minutes Number of Risk Factors 2 01/02/25 12:01 PONV Score Moderate Risk 01/02/25 12:01 Height & Weight Height & Weight: Anesthesia: Height & Weight Height 4 ft 9 in 01/04/25 08:45 Weight: 99.2 kg 01/04/25 08:45 Body Mass Index (BMI) 47.3 01/04/25 08:45 Respiratory Assessment Respiratory Assessment - green chain marker: Respiratory Tract Infection Hx - green chain marker Hx Respiratory Tract Infection No 01/02/25 12:01 STOP Sleep Apnea STOP Sleep Apnea - green chain marker: STOP Sleep Apnea - green chain marker Hx Hypertension Yes: CONTROLLED WITH MEDS 01/02/25 12:01 Hx Sleep Apnea No 01/02/25 12:01 CPAP BIPAP Do you snore loudly (louder Yes 01/02/25 12:01 than talking or can be heard Do you often feel tired/ No 01/02/25 12:01 fatigued/ sleepy during daytime? Has anyone observed you stop No 01/02/25 12:01 breathing during sleep? STOP Results Positive 01/02/25 12:01 QUESTION #5 FULL TEXT : Do you snore loudly (louder than talking or can be heard through closed doors)? Tobacco Use History Tobacco Use History - green chain marker: Tobacco Use History - green chain marker Tobacco Use Cigarettes 08/09/24 14:08 Smoking Status Former smoker 01/02/25 12:01 Hx Tobacco Use No 01/02/25 12:01 Years Smoking Packs Smoked per Day Smoking Cessation Date was Yes - quit smoking within 15 01/02/25 12:01 within the last 15 years years Hx Smoking Cessation Date 08/24/20 01/02/25 12:01 Hx Smoking Cessation No 01/02/25 12:01 Counseling Hematologic Medial History Hematologic Hx - green chain marker: Hematologic Medical Hx - allergy specialist Hx of Blood Transfusion No 01/02/25 12:01 Hx of Transfusion in last 3 No 01/02/25 12:01 Months Date of Last Transfusion (if within last 3 months) Ever experience any problems No 01/02/25 12:01 with transfusion(s)? Specify any problems Hx of Preganancy in last 3 No 01/02/25 12:01 Months Nurse Filling Out Transfusion DSCHRIBER 01/02/25 12:01 & Questions: Date: 01/02/25 01/02/25 12:01 Time: 12:05 01/02/25 12:01 Patient unable to answer at this time (ie. confused, unrespo /Reproduction History /Reproductive History - green chain marker: /Reproductive Hx- green chain marker Hx Now No 01/02/25 12:01 Gestational Age (in weeks): EDC: Hx Hx Para Hx Section SAB No 01/02/25 12:01 Active Medications Active Medications: Current Medications Generic Name Dose Route Start Last Admin Trade Name Freq PRN Reason Stop Dose Admin Lactated Ringer's 1,000 mls @ 15 mls/hr 01/04/25 08:15 01/04/25 08:51 IV 15 mls/hr .Q48H PRATIK Administration PFSH Medical History Bladder disease History of pain when walking History of rheumatic fever History of ESBL E. coli infection Wears dentures Wears glasses Thyroid disease Walker as ambulation aid Uses wheelchair Gastric reflux Former smoker Dependence on continuous supplemental oxygen Shortness of breath on exertion History of echocardiogram Hypoxia BMI 40.0-44.9, adult Spinal stenosis Encounter for screening for malignant neoplasm of lung in current smoker with 30 pack year history or greater Degenerative lumbar spinal stenosis Oral thrush Cough due to bronchospasm Dyspnea on exertion Arthritis Kidney stones GERD (gastroesophageal reflux disease) Hypertension Anxiety and depression COPD (chronic obstructive pulmonary disease) PTSD (post-traumatic stress disorder) Home Medications ?Medication ?Instructions ?Recorded ?Last Taken ?Type sertraline 100 mg tablet 200 mg PO DAILY depression 0 10/23/20 01/08/21 History aripiprazole 20 mg tablet 20 mg PO DAILY mood 01/06/21 01/08/21 History Pulse oximeter #1 ea 02/05/21 Unknown Rx blood pressure monitor (Blood #1 ea 02/05/21 Unknown R x Pressure Kit) walker (Ultra-Light Rollator misc) #1 ea 03/24/21 Unkn own Rx underpads (Bed Underpads) #40 ea 02/16/22 Unknown Rx nebulizer 12/08/22 Unknown History budesonide 160 mcg-glycopyr 9 2 inh inhalation BID Unknown History mcg-formot 4.8 mcg/actuation HFA inhaler (Breztri Aerosphere) levothyroxine 50 mcg tablet 50 mcg PO DAILY #30 tabs 1 10/10/22 Unknown Rx albuterol sulfate 90 mcg/actuation 2 puff inhalation Q 4-6H PRN 12/01/23 Unknown History aerosol inhaler shortness of breath or wheez ing pregabalin 150 mg capsule 150 mg PO TID 04/18/24 Unkno wn History albuterol sulfate 2.5 mg/3 mL 2.5 mg inhalation Q6H WI N 06/21/24 Unknown History (0.083 %) solution for nebulization shortness of breat h or wheezing bupropion HCl 300 mg 24 hr tablet, 300 mg PO DAILY Unknown History extended release esomeprazole magnesium 40 mg 40 mg PO QDAY 09/07/24 Un known History capsule,delayed release lisinopril 20 1 tab PO QDAY 09/07/24 Unkno wn History mg-hydrochlorothiazide 12.5 mg tablet roflumilast 500 mcg tablet 500 mcg PO QDAY 09/07/24 Un known History d-mannose 500 mg capsule 1,000 mg PO BID 01/02/25 Unk nown History estradiol 0.01% (0.1 mg/gram) 1 appful vaginal MOWEFR 01/02/25 Unknown History vaginal cream hydroxyzine HCl 25 mg tablet 25 mg PO TID PRN anxiety 01/02/25 Unknown History nystatin 100,000 unit/mL oral 5 ml PO PRN PRN THRUSH 0 01/02/25 Unknown History suspension Allergy/AdvReac Type Severity Reaction Status Date / Time Sulfa (Sulfonamide Allergy Vomiting Verified 01/04/25 08:43 Antibiotics) Family History Mother Diabetes Hypertension Breast cancer Father Heart disease Hypertension Myocardial infarction, Onset Age: 46 Surgical History (Updated 01/02/25 @ 12:12 by Brooke Dunaway) History of esophagogastroduodenoscopy (EGD) Hx of hernia repair Hx of cholecystectomy History of hand surgery History of hysterectomy History of History of D&C Social History household members: none Smoking Status: Former smoker quit date: 01/03/21 Tobacco: How many years used: 36 alcohol intake: never substance use type: does not use what type of physical activity do you participate in: none Review of Systems (Anesthesia) ROS Narrative System reviewed and no additional complaints, except as documented. Physical Exam Const alert and oriented x3 Resp Resp Narrative: slightly wheezy, didnt take inhalers this morning always on 3L NC Effort and Inspection: decreased respiratory effort Auscultation: wheezes
--- NOTE | 2025-01-04 09:26 | PCM.HP.BLA ---
History and Physical Date of Admission: 01/04/25 Intake Vital Signs 09/21/2508:08 12/07/2507:49 Height 5 ft 5 ft Weight: 224 lb BMI 43.7 BP 125/76 H Blood Pressure Location Rt brachial Position Sitting Respiration 19 H Pulse 71 Pulse Source Monitor Temp 97.3 F L Temp Source Temporal Pulse Oximetry (%) 92 Oxygen Delivery Method nasal canula Oxygen Flow Rate (L/min) 3 Intake Visit Reasons: COLONOSCOPY Chief Complaint: colonoscopy Is patient in pain?: Yes (back arthritis) Allergies Sulfa (Sulfonamide Antibiotics) Allergy (Verified 12/06/24 08:50) Vomiting Medications ?Medication ?Instructions ?Recorded ?Confirmed ?Type sertraline 100 mg tablet 200 mg PO DAILY depression 10/23/20 12/06/24 History aripiprazole 20 mg tablet 20 mg PO DAILY mood 01/06/21 12/06/24 History Pulse oximeter #1 ea 02/05/21 12/06/24 Rx blood pressure monitor (Blood #1 ea 02/05/21 12/06/24 Rx Pressure Kit) walker (Ultra-Light Rollator misc) #1 ea 03/24/21 12/06/24 Rx underpads (Bed Underpads) #40 ea 02/16/22 12/06/24 Rx nebulizer 12/08/22 12/06/24 History budesonide 160 mcg-glycopyr 9 2 inh inhalation BID 03/24/23 12/06/24 History mcg-formot 4.8 mcg/actuation HFA inhaler (Breztri Aerosphere) levothyroxine 50 mcg tablet 50 mcg PO DAILY #30 tabs 08/09/23 12/06/24 Rx albuterol sulfate 90 mcg/actuation 2 puff inhalation Q4-6H PRN 12/01/23 12/06/24 History aerosol inhaler shortness of breath or wheezing pregabalin 150 mg capsule 150 mg PO TID 04/18/24 12/06/24 History albuterol sulfate 2.5 mg/3 mL 2.5 mg inhalation Q6H 06/21/24 12/06/24 History (0.083 %) solution for nebulization brinzolamide 1 % eye 1 drp ophthalmic (eye) BID 06/21/24 12/06/24 History drops,suspension bupropion HCl 300 mg 24 hr tablet, 300 mg PO DAILY 10/24/24 04/10/25 History extended release latanoprost 0.005 % eye drops 1 drp ophthalmic (eye) DAILY 06/21/24 12/06/24 History esomeprazole magnesium 40 mg 40 mg PO QDAY 09/07/24 12/06/24 History capsule,delayed release furosemide 20 mg tablet (Lasix) 20 mg PO QAM 09/07/24 12/06/24 History lisinopril 20 1 tab PO QDAY 09/07/24 12/06/24 History mg-hydrochlorothiazide 12.5 mg tablet roflumilast 500 mcg tablet 500 mcg PO QDAY 09/07/24 12/06/24 History nitrofurantoin 100 mg PO Q12H 7 days #14 caps 12/02/24 12/06/24 Rx monohydrate/macrocrystals 100 mg capsule (Macrobid) Have you fallen in the past year?: No PFSH Medical History (Updated 12/06/24 @ 08:49 by Marlin Trevino) History of ESBL E. coli infection Wears dentures Wears glasses Thyroid disease Walker as ambulation aid Uses wheelchair Gastric reflux Former smoker Dependence on continuous supplemental oxygen Shortness of breath on exertion History of echocardiogram Hypoxia Gallstones BMI 40.0-44.9, adult Spinal stenosis Encounter for screening for malignant neoplasm of lung in current smoker with 30 pack year history or greater Tobacco use disorder, continuous Degenerative lumbar spinal stenosis Oral thrush Cough due to bronchospasm Dyspnea on exertion Arthritis Kidney stones GERD (gastroesophageal reflux disease) Hypertension Anxiety and depression COPD (chronic obstructive pulmonary disease) PTSD (post-traumatic stress disorder) Surgical History Hx of hernia repair Hx of cholecystectomy History of hand surgery History of hysterectomy History of History of D&C Family History Mother Diabetes Hypertension Breast cancerFather Heart disease Hypertension Myocardial infarction, Onset Age: 46 Social History household members: none Smoking Status: Former smoker quit date: 01/03/21 Tobacco: How many years used: 36 alcohol intake: never substance use type: does not use what type of physical activity do you participate in: none HPI HPI HPI: Patient is a 69-year-old female here for colonoscopy. Her last colonoscopy was a long time ago and she does not remember when. She just had an EGD in August which was normal. She denies any abdominal pain or blood in her stool. ROS General General: Yes fatigue; No weight change, appetite, colon cancer, breast cancer or weakness HEENT HEENT: Yes difficulty swallowing and eye surgery; No eye injury, swollen glands or hoarseness Endo Endocrine: Yes thyroid disease; No diabetes mellitus, thyroid cancer, Hair loss, heat intolerance or cold intolerance Skin Skin: No rash or changing moles Musc Musculoskeletal: Yes back problems and arthritis; No rheumatoid arthritis, gout or joint pain Cardio Cardiovascular: Yes murmur and high blood pressure; No pacemaker, heart disease, atrial fibrillation, heart attack, heart stent, palpitations, shortness of breath with exertion or chest pain Psych Psychiatric: Yes depression and anxiety; No hearing voices Resp Respiratory: Yes shortness of breath, No sleep apnea, Yes cough, Yes COPD, No asthma, No emphysema and No wheezing Gastro Gastrointestinal: No abdominal pain, No nausea or vomiting, No diarrhea, No constipation, No blood in stool, Yes acid reflux, Yes hemorrhoids, Yes ulcers, No gallbladder problem and No black,tarry stools Shen Hematologic: No blood thinners, No blood disorders, No bleeding, No anemia and No blood clots Neuro Neurologic: No system reviewed and no additional complaints, except as documented, No as per HPI, No abnormal gait, No abnormal hearing, No abnormal movements, No abnormal speech, No behavioral changes, No burning sensations, No confusion, No convulsions, No disequilibrium, No dizziness, No localized weakness, No frequent falls, No headache(s), No lack of coordination, No loss of vision, No memory loss, No numbness, No other visual disturbances, No radicular pain, No restless legs, No sensory deficit, No syncope, No tingling, No tremor(s), No weakness and No other Exam Const General: cooperative Orientation: alert and oriented x3 HENMT Head: normal to inspection Neck Neck: normal visual inspection and full ROM Chest Chest palpation & inspection: normal inspection of the chest Resp Effort & Inspection: normal respiratory effort Auscultation: clear to auscultation bilaterally Cardio Rate: regular rate Rhythm: regular rhythm GI Inspection: non-distended Palpation: soft and nontender Skin General: no rashes or lesions noted Neuro General: patient alert and patient oriented x3 Extrem General: full ROM Psych Appearance: grossly normal Mental Status: mental status grossly normal Assessment and Plan Assessment and Plan (1) Encounter for screening colonoscopy: Status: Acute Plan: I explained endoscopy in detail to the patient. I explained the risks including but not limited to stroke or heart attack with anesthesia, perforation of the GI tract, bleeding, infection. I explained that any of these could necessitate further emergency surgery. The patient understands and all questions were answered sufficiently. The patient wishes to proceed with procedure. Jose De Souza MD Pager: [facility] [address] [place] [address], [address] [place] [address] Office: I have examined the patient and the H&P has been reviewed. There are no clinical changes since date of exam.
--- NOTE | 2025-01-04 09:50 | OP.COLON_ITS ---
Patient Name: Janina Heart Procedure Date: 01/04/2025 9:28 AM Date of : 1955 Age: 69 Procedure: Colonoscopy Indications: Screening for colorectal malignant neoplasm Providers: Jose De Souza MD Referring MD: Tre Weston Md Medicines: Propofol per Anesthesia Patient Profile: This is a 69 year old female. Refer to note in patient chart for documentation of history and physical. Last Colonoscopy: more than 10 years ago. Complications: No immediate complications. Procedure: Pre-Anesthesia Assessment: - Prior to the procedure, a History and Physical was performed, and patient medications and allergies were reviewed. The patient's tolerance of previous anesthesia was also reviewed. The risks and benefits of the procedure and the sedation options and risks were discussed with the patient. All questions were answered, and informed consent was obtained. Prior Anticoagulants: The patient has taken no anticoagulant or antiplatelet agents. After reviewing the risks and benefits, the patient was deemed in satisfactory condition to undergo the procedure. After I obtained informed consent, the scope was passed under direct vision. Throughout the procedure, the patient's blood pressure, pulse, and oxygen saturations were monitored continuously. The pediatric colonoscope was introduced through the anus and advanced to the cecum, identified by appendiceal orifice and ileocecal valve. The colonoscopy was performed without difficulty. The patient tolerated the procedure well. The quality of the bowel preparation was good. The ileocecal valve, appendiceal orifice, and rectum were photographed. Scope In: 9:41:13 AM Scope Withdrawal Time 0 hours 6 minutes 3 seconds Scope Out: 9:49:46 AM Total Procedure Duration Time 0 hours 8 minutes 33 seconds Findings: The entire examined colon appeared normal on direct and retroflexion views. Impression: - The entire examined colon is normal on direct and retroflexion views. - No specimens collected. Recommendation: - Discharge patient to home. - Resume previous diet. - Continue present medications. - Repeat colonoscopy is not recommended due to current age (66 years or older) for screening purposes. Procedure Code(s): --- Professional --- 70619, Colonoscopy, flexible; diagnostic, including collection of specimen(s) by brushing or washing, when performed (separate procedure) Diagnosis Code(s): --- Professional --- Z12.11, Encounter for screening for malignant neoplasm of colon CPT copyright 2021 [employer]. All rights reserved. The codes documented in this report are preliminary and upon tube bender hand review may be revised to meet current compliance requirements. Jose De Souza MD 01/04/2025 9:50:17 AM This report has been signed electronically. Number of Addenda: 0 Note Initiated On: 01/04/2025 9:28 AM
--- NOTE | 2025-01-04 09:50 | OP.CCLET_ITS ---
01/04/2025 Tre Weston Md Re : Colonoscopy procedure for Janina Heart Dear Trista This procedure was performed on Saturday, January 04, 2025. My impressions and recommendations are as follows: Impressions : - The entire examined colon is normal on direct and retroflexion views. - No specimens collected. Recommendations : - Discharge patient to home. - Resume previous diet. - Continue present medications. - Repeat colonoscopy is not recommended due to current age (66 years or older) for screening purposes. My findings are described in the full procedure note, which is enclosed. If I can be of further assistance, please feel free to contact me at Doctor phone number(s): , Work: . Sincerely, Jose De Souza MD 01/04/2025 9:50:17 AM This report has been signed electronically.
--- NOTE | 2025-01-04 09:56 | PCM.POST.ANE ---
Anesthesia: Postop Eval I Current Vital Signs Temperature: 97.2 F Pulse Rate: 89 Blood Pressure: 138/86 Respiratory Rate: 16 Pulse Ox: 94 Oxygen Delivery Method: Room Air Assessment Airway patent: Yes Spontaneous unlabored respirations: Yes Mental status: Awake nausea: No Vomiting: No Anesthesia Complication: No Fluid Hydration Crystalloid volume administer (ml): 300 Total IV fluid infused: 300 Progress Note Anesthesia document: Postop Eval 1 completed: Yes
--- NOTE | 2025-01-04 11:00 | POSTOPAN2_ITS ---
Anesthesia Postop Eval I Sum Postop Eval Completion status Anesthesia document: Postop Eval 1 completed: Yes Anesthesia Postop Eval I Summary Anesthesia Postop Eval I Summary: Anesthesia Postop Eval I: Assessment Summary Airway patent Yes 01/04/25 09:57 FRUIT [email or web address] Spontaneous unlabored Yes 01/04/25 09:57 FRUIT [email or web address] respirations Mental status Awake 01/04/25 09:57 FRUIT [email or web address] nausea No 01/04/25 09:57 FRUIT [email or web address] Vomiting No 01/04/25 09:57 FRUIT [email or web address] Anesthesia Postop Eval I: Fluid Summary Crystalloid volume administer 300 01/04/25 09:57 FRUIT [email or web address] (ml) Colloids volume administered ( ml) Blood Product volume administered (ml) Total IV fluid infused 300 01/04/25 09:57 FRUIT [email or web address] Anesthesia Postop Eval I: Summary Notes Anesthesia Complication No 01/04/25 09:57 FRUIT [email or web address] Anesthesia Complication Comment: Post-operative progress note Anesthesia: Postop Eval II Evaluation Mental status: Awake and Calm Pain Level: 1 nausea: No Vomiting: No
--- NOTE | 2025-01-04 11:00 | PCM.POSTANE2 ---
Anesthesia Postop Eval I Sum Postop Eval Completion status Anesthesia document: Postop Eval 1 completed: Yes Anesthesia Postop Eval I Summary Anesthesia Postop Eval I Summary: Anesthesia Postop Eval I: Assessment Summary Airway patent Yes 01/04/25 09:57 LINEMAN A CLASS.SOBR Spontaneous unlabored Yes 01/04/25 09:57 LINEMAN A CLASS.SOBR respirations Mental status Awake 01/04/25 09:57 LINEMAN A CLASS.SOBR nausea No 01/04/25 09:57 LINEMAN A CLASS.SOBR Vomiting No 01/04/25 09:57 LINEMAN A CLASS.SOBR Anesthesia Postop Eval I: Fluid Summary Crystalloid volume administer 300 01/04/25 09:57 LINEMAN A CLASS.SOBR (ml) Colloids volume administered ( ml) Blood Product volume administered (ml) Total IV fluid infused 300 01/04/25 09:57 LINEMAN A CLASS.SOBR Anesthesia Postop Eval I: Summary Notes Anesthesia Complication No 01/04/25 09:57 LINEMAN A CLASS.SOBR Anesthesia Complication Comment: Post-operative progress note Anesthesia: Postop Eval II Evaluation Mental status: Awake and Calm Pain Level: 1 nausea: No Vomiting: No
== END 2025-01-04 10:50 | disposition home or self-care (01) ==
LOC: EN 07:57 → AC 07:58
PROVIDERS: PCP Family Medicine; Referring Provider Family Medicine; Visit Provider Surgery
PROC: 0DJD8ZZ Inspection of Lower Intestinal Tract, Via Natural or Artificial Opening Endoscopic (ICD-10-PCS; CPT 45378; principal; 2025-01-04 09:10)
DX: Z12.11 Encounter for screening for malignant neoplasm of colon (principal); J44.9 Chronic obstructive pulmonary disease, unspecified; K21.9 Gastro-esophageal reflux disease without esophagitis; I10 Essential (primary) hypertension; E07.9 Disorder of thyroid, unspecified; F32.A Depression, unspecified; F41.9 Anxiety disorder, unspecified; Z79.890 Hormone replacement therapy; Z79.899 Other long term (current) drug therapy; Z87.891 Personal history of nicotine dependence
CPT/HCPCS: G0121

== ENCOUNTER 2025-02-04 14:41 | Inpatient (IN) | payer MEDICARE, MEDICAID, SELFPAY ==
[2024-08-09 14:08] VITALS: BMI 41.0
[2025-02-04] VITALS (22 sets, daily range): BP systolic 139–170; BP diastolic 75–119; PULSE 75–93; RESP 11–25; TEMP 36.8–37.1; O2SAT 93–99; BMI 44.1
--- NOTE | 2025-02-04 15:17 | EKG12_ITS ---
Test Reason : RA Blood Pressure : */* mmHG Vent. Rate : 73 BPM Atrial Rate : 73 BPM P-R Int : 152 ms QRS Dur : 88 ms QT Int : 386 ms P-R-T Axes : 52 20 40 degrees QTcB Int : 425 ms Normal sinus rhythm Normal ECG When compared with ECG of 04-Feb-2025 15:01, MANUAL COMPARISON REQUIRED DATA IS UNCONFIRMED Confirmed by Denzel Celestin ([id number]), assignment desk editor NOAH CHAPA ([id number]) on 02/05/2025 11:07:31 AM Referred By: MONTSERRAT Confirmed By: Denzel Celestin
--- NOTE | 2025-02-04 15:33 | ED.VIS.DYS ---
HPI History of Present Illness Chief Complaint: Shortness of Breath Informant: patient Narrative Narrative: Patient is a 69-year-old female with history of chronic respiratory failure on 3 L of oxygen at baseline, thyroid disease, hypertension, COPD and GERD presenting with worsening shortness of breath. Patient states she has had worsening respiratory symptoms for the past 48 hours however became much more worse today. She states Dr. Yao started her on prednisone 40 mg on Tuesday for her breathing. She states that she did everything she was supposed to do today including having 3 albuterol nebulized treatments prior to arrival, took her normal medications as well as a rescue inhaler but she still feels that she has had a hard time breathing. States she is been coughing up a lot but feels that there is other mucus that is too deep and thick to get out. States the mucus is beige in color. She denies any chest pain but does have chest tightness. Denies any fever or leg swelling. Does report some associated sinus congestion. Came in for further evaluation per recommendation of the pulmonology office. Patient does note that she had to turn her oxygen up to 4 L at home because she was feeling so short of breath. Has required admission to the hospital for COPD exacerbation about a year ago but she is never required ICU level of care, BiPAP or intubation. [facility] Medical History Chronic respiratory failure with hypoxia COPD (chronic obstructive pulmonary disease) Bladder disease History of pain when walking History of rheumatic fever History of ESBL E. coli infection Wears dentures Wears glasses Thyroid disease Walker as ambulation aid Uses wheelchair Gastric reflux Former smoker Dependence on continuous supplemental oxygen Shortness of breath on exertion History of echocardiogram Hypoxia BMI 40.0-44.9, adult Spinal stenosis Encounter for screening for malignant neoplasm of lung in current smoker with 30 pack year history or greater Degenerative lumbar spinal stenosis Oral thrush Cough due to bronchospasm Dyspnea on exertion Arthritis Kidney stones GERD (gastroesophageal reflux disease) Hypertension Anxiety and depression COPD (chronic obstructive pulmonary disease) PTSD (post-traumatic stress disorder) Home Medications ?Medication ?Instructions ?Recorded ?Last Taken ?Type sertraline 100 mg tablet 200 mg PO DAILY depression 10/23/20 02/04/25 History aripiprazole 20 mg tablet 20 mg PO DAILY mood 01/06/21 02/04/25 History Pulse oximeter #1 ea 02/05/21 Unknown Rx blood pressure monitor (Blood #1 ea 02/05/21 Unknown Rx Pressure Kit) walker (Ultra-Light Rollator misc) #1 ea 03/24/21 Unknown Rx underpads (Bed Underpads) #40 ea 02/16/22 Unknown Rx nebulizer 12/08/22 Unknown History levothyroxine 50 mcg tablet 50 mcg PO DAILY #30 tabs 08/09/23 02/04/25 Rx albuterol sulfate 90 mcg/actuation 2 puff inhalation Q4-6H PRN 12/01/23 02/04/25 History aerosol inhaler shortness of breath or wheezing albuterol sulfate 2.5 mg/3 mL 2.5 mg inhalation Q6H PRN 06/21/24 02/04/25 History (0.083 %) solution for nebulization shortness of breath or wheezing bupropion HCl 300 mg 24 hr tablet, 300 mg PO DAILY 06/21/24 02/04/25 History extended release esomeprazole magnesium 40 mg 40 mg PO QDAY 09/07/24 02/04/25 History capsule,delayed release roflumilast 500 mcg tablet 500 mcg PO QDAY 09/07/24 02/04/25 History d-mannose 500 mg capsule 1,000 mg PO BID 01/02/25 02/04/25 History hydroxyzine HCl 25 mg tablet 25 mg PO TID PRN anxiety 01/02/25 Unknown History budesonide 160 mcg-glycopyr 9 2 inh inhalation BID #10.7 grams 01/31/25 02/04/25 Rx mcg-formot 4.8 mcg/actuation HFA inhaler (Breztri Aerosphere) furosemide 20 mg tablet 20 mg PO QDAY 01/31/25 02/04/25 History lisinopril 20 mg tablet 20 mg PO QDAY 01/31/25 02/04/25 History pregabalin 100 mg capsule 100 mg PO TID 01/31/25 02/04/25 History sucralfate 1 gram tablet 1 g PO TID 01/31/25 02/04/25 History Allergy/AdvReac Type Severity Reaction Status Date / Time Sulfa (Sulfonamide Allergy Vomiting Verified 02/04/25 14:41 Antibiotics) Family History Mother Diabetes Hypertension Breast cancer Father Heart disease Hypertension Myocardial infarction, Onset Age: 46 Surgical History History of esophagogastroduodenoscopy (EGD) Hx of hernia repair Hx of cholecystectomy History of hand surgery History of hysterectomy History of History of D&C Social History household members: none Smoking Status: Former smoker quit date: 01/03/21 Tobacco: How many years used: 36 alcohol intake: never substance use type: does not use what type of physical activity do you participate in: none ROS ROS ED Constitutional Constitutional ED: Denies chills or fever(s) ENT ENT ED: Reports other Details: Nasal congestion ; Denies ear pain, rhinorrhea or sore throat Cardiovascular Cardiovascular: Denies chest pain or palpitations Respiratory/Chest Respiratory/Chest: Reports cough, dyspnea and sputum Gastrointestinal Gastrointestinal: Denies abdominal pain, nausea or vomiting Musculoskeletal Musculoskeletal: Denies arthralgias or myalgias Integumentary Denies rash Neurologic Neurologic: Denies weakness Hematologic/Lymphatic Hematologic/Lymphatic: Denies easy bleeding EXAM Physical Exam Const Vital Signs: 02/04/25 14:41 02/04/25 15:06 02/04/25 15:46 Temperature 98.3 F Temperature Source Oral Pulse Rate 90 Respiratory Rate 22 H Respiratory Effort Short of Breath Respiratory Depth Shallow Respiratory Pattern Tachypnea Blood Pressure 139/75 H 144/81 H Blood Pressure Mean 96 101 Pulse Ox 93 Oxygen Delivery Method Nasal Cannula Nasal Cannula Oxygen Flow Rate (L/min) 3 3 02/04/25 15:47 02/04/25 15:47 02/04/25 16:00 Temperature 98.7 F 98.7 F Temperature Source Oral Oral Pulse Rate 81 84 Respiratory Rate 21 H 11 L Respiratory Effort Respiratory Depth Respiratory Pattern Blood Pressure 144/81 H 140/119 H Blood Pressure Mean 102 126 Pulse Ox 97 97 Oxygen Delivery Method Nasal Cannula Nasal Cannula Nasal Cannula Oxygen Flow Rate (L/min) 2 3 3 02/04/25 16:00 02/04/25 16:11 02/04/25 16:15 Temperature Temperature Source Pulse Rate 84 Respiratory Rate 20 H Respiratory Effort Respiratory Depth Respiratory Pattern Normal Blood Pressure 140/119 H Blood Pressure Mean 127 Pulse Ox 96 99 Oxygen Delivery Method Oxygen Flow Rate (L/min) 02/04/25 16:21 02/04/25 16:30 02/04/25 16:45 Temperature Temperature Source Pulse Rate 85 80 83 Respiratory Rate 16 16 19 H Respiratory Effort Respiratory Depth Respiratory Pattern Blood Pressure 150/101 H 161/100 H Blood Pressure Mean 107 119 Pulse Ox 97 98 99 Oxygen Delivery Method Nasal Cannula Nasal Cannula Oxygen Flow Rate (L/min) 3 3 02/04/25 17:00 02/04/25 17:15 02/04/25 17:30 Temperature Temperature Source Pulse Rate 78 79 77 Respiratory Rate 14 15 17 Respiratory Effort Respiratory Depth Respiratory Pattern Blood Pressure 170/87 H 165/88 H Blood Pressure Mean 110 109 Pulse Ox 98 98 96 Oxygen Delivery Method Nasal Cannula Oxygen Flow Rate (L/min) 3 02/04/25 17:45 02/04/25 18:00 Temperature Temperature Source Pulse Rate 82 88 Respiratory Rate 20 H 25 H Respiratory Effort Respiratory Depth Respiratory Pattern Blood Pressure Blood Pressure Mean Pulse Ox 96 97 Oxygen Delivery Method Oxygen Flow Rate (L/min) Positive well nourished and well developed General Appearance ED: well developed and NAD; Negative for pallor HEENT Reports TM's clear and moist mucous membranes atraumatic Tympanic Membrane ED: Yes TM's clear Neck no JVD Resp Resp Narrative: Mildly increased work of breathing. Rhonchorous breath sounds at the bases that are diminished at the bases. Expiratory wheezing noted in the upper lung ng. Cardio regular rate, regular rhythm and no murmurs GI non-tender and non-distended GI Narrative: Chaperoned rectal exam performed shows brown stool. Is Hemoccult positive Auscultation: normoactive bowel sounds Palpation: soft; Negative for tender Extremity normal to inspection General Extremety ED: Negative for edema General Extremity: Negative for edema Neuro oriented x3 Sensorium / Orientation: alert Motor Exam: Negative for general weakness Psych mental status grossly normal Skin no wounds General Skin Exam: Negative for jaundice or pallor MDM MDM MDM Narrative Medical decision making narrative: Patient evaluated for worsening shortness of breath over the past 2 days or so. She is already on steroids at home but does not feel improved. She has been doing regular breathing treatments as well. She does have end-stage COPD and wears 3 L of oxygen at baseline. Differential includes COPD exacerbation, failure of outpatient treatment, symptomatic anemia, pleural effusion, FADUMO or cardiogenic cause. Clinically patient does not have any signs of fluid overload and she is not having chest pain. EKG does not show acute ischemia and I do not think she requires troponins. She does have a mild leukocytosis on her CBC but this could be reactive from her current steroids. She has a mild anemia with a hemoglobin of 9.2 which is microcytic in nature. This is acute compared to her hemoglobin of 12.0 in September. Patient denies any black or blood in her stool but at one point there was concern that she was having GI bleed and she had recent endoscopy with Dr. De Souza 1 month ago. She had a colonoscopy and review of note from the procedure shows a normal colonoscopy. This was a screening colonoscopy. She had an EGD and 09/17/2024 for reflux and globus sensation and that was normal. VBG obtained which is more consistent with hyperventilation with a compensated respiratory acidosis. She does not require BiPAP or more emergent airway intervention. She is given ipratropium (she already had albuterol and feels jittery from that prior to arrival) as well as 60 mg IV Solu-Medrol. She does feel improved with this. CMP shows a mild elevation of her BUN compared to her labs in September which would be concerning for an upper GI bleed. She has a chronic elevation of her bicarb which is consistent with her chronic respiratory failure. She also has a mild transaminitis of uncertain clinical significance however she is not complain of abdominal pain. Her bilirubin is normal. Rectal exam for checking for melena or fecal occult blood is performed. There is brown stool but it is occult positive. She is ambulated and while she does not desaturate she is quite symptomatic. Given this acute anemia with concern for possible occult GI bleeding in the setting of a COPD exacerbation I do think she would benefit from admission. Also not sure if some of her dyspnea is associated with symptomatic anemia. Patient is agreeable with admission. This time I do not think she requires emergent blood transfusion. She is not on a blood thinner. Case discussed with hospice, Dr. Conde for admission. Lab Data Attestation: I reviewed the patient's lab results. Labs: Laboratory Results - last 24 hr 02/04/25 15:30 WBC 15.3 H RBC 4.19 L Hgb 9.2 L Hct 30.5 L MCV 72.8 L MCH 22.0 L MCHC 30.2 L RDW Std Deviation 46.3 H RDW Coeff of Ronny 17.4 H Plt Count 326 MPV 8.3 Immature Gran % (Auto) 1.700 H Neut % (Auto) 90.4 H Lymph % (Auto) 4.2 L [place] % (Auto) 3.0 Eos % (Auto) 0.4 Baso % (Auto) 0.3 Absolute Neuts (auto) 13.8 H Absolute Lymphs (auto) 0.64 L Nucleated RBC % 0 PT 11.9 INR 0.9 APTT 23.8 L Sodium 137 Potassium 4.3 Chloride 94 L Carbon Dioxide 33.2 H Anion Gap 10 BUN 21 H Creatinine 0.87 Estim Creat Clear Calc 63.99 Est GFR (MDRD) Non-Af 71 BUN/Creatinine Ratio 23.6 H Glucose 192 H Calcium 9.5 Iron 20 L TIBC 449 Iron Saturation 5.0 L Unsaturated IBC 429 H Ferritin 15 L Total Bilirubin 0.15 Direct Bilirubin < 0.08 AST 65 H ALT 59 H Alkaline Phosphatase 176 H Total Protein 6.5 Albumin 3.7 Globulin 2.7 Vitamin B12 375 ABG Data ABG results: ABG 02/04/25 16:25 Specimen Type DIANA Sample Site Not entered O2 % 3.0 VBG pH 7.46 H VBG pO2 65 H VBG HCO3 39 H VBG Total CO2 41 H VBG O2 Sat (Calc) 93 H VBG Base Excess 15 H POC Mix VBG pCO2 Pt Tmp 54.5 H O2 Delivery Device Not entered Radiography Chest X-Ray - ED: 2 View, Read by ED Physician and Read by Radiologist Diagnostic Testing: Clinical Impression(s) from Imaging Studies Chest X-Ray 02/04/25 15:50 IMPRESSION: No acute process. Reading [facility] Rhythm Strip Rhythm Strip: Sinus Rhythm Rate: 85 Ectopy: None EKG Initial EKG: Attestation: I personally reviewed and interpreted this EKG as follows: Interpretation: Sinus Rhythm Comments: Normal sinus rhythm rate of 85 bpm Normal axis Normal intervals Normal ST segments Compared to prior EKG on 07/20/2024 no acute changes Management Discussion w/another healthcare provider: Hospitalist and Engineering Mgr (Pulmonology-Dr. Yao-no further recommendations besides standard treatment for COPD exacerbation) Discharge Plan Dx/Rx/DC Orders Clinical Impression: COPD exacerbation, Chronic hypoxemic respiratory failure, Anemia, Fecal occult blood test positive Disposition Disposition: Acute Care Hospital [facility] Discharge Date/Time: 02/04/25 19:00
[2025-02-04] MEDS: MethylPREDNISolone 125 MG/2 ML Vial 60 MG IV (15:45)
[2025-02-04] MEDS: 0.9% Normal Saline (500mL Bag) 500 ML 999 ML IV (15:45)
[2025-02-04 15:47] LABS: Absolute Lymphocyte Count 0.64 X10^3/uL (0.83-4.51); Absolute Neutrophil Count 13.8 X10^3/uL (2.0-7.7); Basophil# 0.04 X10^3/uL; Basophil% 0.3 % (0-1); Eosinophil# 0.06 X10^3/uL; Eosinophils% 0.4 % (0-5); Hematocrit 30.5 % (37-47); Hemoglobin 9.2 g/dL (12.0-15.0); Lymphocyte # 0.64 X10^3/ul (0.83-4.51); Lymphocyte % 4.2 % (19-41); Mean Corp Hgb Conc 30.2 g/dL (32-36); Mean Corpuscular Volume 72.8 fL (81-99); Mean Platelet Vol. 8.3 fl (6.2-12.0); Monocyte# 0.46 X10^3/uL; NRBC Flagged by Analyzer 0 % (0-5); Neutrophil # 13.84 X10^3/uL (2.7-7.7); Neutrophil % 90.4 % (47-70); Platelet Count 326 K/mm3 (150-450); RBC Distribution Width CV 17.4 % (11.6-14.6); RBC Distribution Width SD 46.3 fl (35.1-43.9); Red Blood Count 4.19 M/mm3 (4.2-5.4); White Blood Count 15.3 K/mm3 (4.4-11.0)
--- NOTE | 2025-02-04 15:50 | RAD_ITS ---
PROCEDURE: CHEST PA AND LATERAL 02/04/2025 REASON FOR EXAM: Shortness of breath TECHNIQUE: Frontal and lateral views of the chest. COMPARISON: October 24, 2024 chest radiograph FINDINGS: Hardware: EKG lead wires Heart: Normal size Mediastinum: Normal contour and appearance Lungs: Pleural-parenchymal changes in the lung bases are stable compared to the prior September exam Bones: No aggressive bony lesion. RAD/Chest PA and Lateral IMPRESSION: No acute process. Reading [facility]
[2025-02-04 16:07] LABS: Anion Gap 10 (5-15); BUN 21 mg/dL (4-19); BUN/Creat Ratio 23.6 RATIO (10-20); Calcium,Total 9.5 mg/dL (7.6-11.0); Carbon Dioxide 33.2 mmol/L (21.0-32.0); Chloride 94 mmol/L (98-108); Creatinine, Serum 0.87 mg/dL (0.70-1.20); EST Glomerular Filtration Rate 71 (>60); Estimated Creatinine Clearance 63.99 ml/min (50-250); Glucose 192 mg/dL (70-99); Potassium 4.3 mmol/L (3.3-5.1); Sodium Level 137 mmol/L (133-145)
[2025-02-04] MEDS: Ipratropium 0.5 MG/2.5 ML SOLUTION INHALATION (16:09)
[2025-02-04 16:29] LABS: Blood Gas Specimen Type VEN; O2 Delivery Device Not entered; SITE Not entered; VBG BASE EXCESS 15 mmol/L (-1.0-3.5); VBG Bicarbonate 39 mmol/L (22-26); VBG PO2 65 mmHg (25-40); VBG SO2 93 % (50-70); VBG TCO2 41 mmol/L (23-33); VBG pCO2 54.5 mmHg (41-51); VBG pH 7.46 (7.32-7.42)
--- NOTE | 2025-02-04 18:03 | HP.PCM.HOS_ITS ---
HPI - General General Date of Admission: 02/04/25 Date of Service: 02/04/25 Chief Complaint: Worsening shortness of breath HPI Narrative MAX TOM, is a 69 F who presented to [facility] ED on 02/04/2025 with worsening shortness of breath. Patient has history of COPD and is on 3 L nasal cannula at baseline. She follows with Dr. Yao and saw him in the office on 01/31. Was noted the patient has Gold stage III COPD and is on triple therapy and has completed pulmonary rehab. Because of her decompensated status and frequent exacerbations, she was felt to be a good candidate for low-dose prednisone therapy. Was noted that she was wheezing on exam so she was given a 5-day prednisone 40 mg burst starting on Tuesday. She does not feel like this helped her breathing much over the weekend, so she came to the ED today for further evaluation. She was wheezy on exam but was otherwise satting in the mid 90s on 3 L nasal cannula. However, she was found to have a hemoglobin of 9.2, down from her baseline of 11-12. Hemoccult positive. She denies any dark or bloody stools recently. Of note, she had a colonoscopy done in December and an EGD done in August both with Dr. De Souza that were unremarkable. Lab workup was otherwise fairly benign. With her worsening hemoglobin and concern for GI bleed along with symptomatic anemia, hospitalist was contacted for admission. I saw the patient at bedside in the ED. Patient was fatigued appearing but otherwise sitting back comfortably in bed and breathing comfortably on her home 3 L nasal cannula and answering questions appropriately for me. She noted feeling more fatigued, weak and short of breath over the past 3 to 4 days especially. She has history of acid reflux but denies any worsening of symptoms recently. Denies any nausea or episodes of vomiting recently. No other acute concerns at this time. [facility] Medical History Chronic respiratory failure with hypoxia COPD (chronic obstructive pulmonary disease) Bladder disease History of pain when walking History of rheumatic fever History of ESBL E. coli infection Wears dentures Wears glasses Thyroid disease Walker as ambulation aid Uses wheelchair Gastric reflux Former smoker Dependence on continuous supplemental oxygen Shortness of breath on exertion History of echocardiogram Hypoxia BMI 40.0-44.9, adult Spinal stenosis Encounter for screening for malignant neoplasm of lung in current smoker with 30 pack year history or greater Degenerative lumbar spinal stenosis Oral thrush Cough due to bronchospasm Dyspnea on exertion Arthritis Kidney stones GERD (gastroesophageal reflux disease) Hypertension Anxiety and depression COPD (chronic obstructive pulmonary disease) PTSD (post-traumatic stress disorder) Home Medications ?Medication ?Instructions ?Recorded ?Last Taken ?Type sertraline 100 mg tablet 200 mg PO DAILY depression 0 10/23/20 02/04/25 History aripiprazole 20 mg tablet 20 mg PO DAILY mood 01/06/21 02/04/25 History Pulse oximeter #1 ea 02/05/21 Unknown Rx blood pressure monitor (Blood #1 ea 02/05/21 Unknown R x Pressure Kit) walker (Ultra-Light Rollator misc) #1 ea 03/24/21 Unkn own Rx underpads (Bed Underpads) #40 ea 02/16/22 Unknown Rx nebulizer 12/08/22 Unknown History levothyroxine 50 mcg tablet 50 mcg PO DAILY #30 tabs 1 10/10/22 02/04/25 Rx albuterol sulfate 90 mcg/actuation 2 puff inhalation Q 4-6H PRN 12/01/23 02/04/25 History aerosol inhaler shortness of breath or wheez ing albuterol sulfate 2.5 mg/3 mL 2.5 mg inhalation Q6H RI N 06/21/24 02/04/25 History (0.083 %) solution for nebulization shortness of breat h or wheezing bupropion HCl 300 mg 24 hr tablet, 300 mg PO DAILY 02/04/25 History extended release esomeprazole magnesium 40 mg 40 mg PO QDAY 09/07/24 History capsule,delayed release roflumilast 500 mcg tablet 500 mcg PO QDAY 09/07/24 History d-mannose 500 mg capsule 1,000 mg PO BID 01/02/2505/23 History hydroxyzine HCl 25 mg tablet 25 mg PO TID PRN anxiety 01/02/25 Unknown History budesonide 160 mcg-glycopyr 9 2 inh inhalation BID #10 .7 grams 01/31/25 02/04/25 Rx mcg-formot 4.8 mcg/actuation HFA inhaler (Breztri Aerosphere) furosemide 20 mg tablet 20 mg PO QDAY 01/31/2502/04 History lisinopril 20 mg tablet 20 mg PO QDAY 01/31/2502/04 History pregabalin 100 mg capsule 100 mg PO TID 01/31/2502/04 History sucralfate 1 gram tablet 1 g PO TID 01/31/25 02/04/25 History Allergy/AdvReac Type Severity Reaction Status Date / Time Sulfa (Sulfonamide Allergy Vomiting Verified 02/04/25 14:41 Antibiotics) Family History Mother Diabetes Hypertension Breast cancer Father Heart disease Hypertension Myocardial infarction, Onset Age: 46 Surgical History History of esophagogastroduodenoscopy (EGD) Hx of hernia repair Hx of cholecystectomy History of hand surgery History of hysterectomy History of History of D&C Social History household members: none Smoking Status: Former smoker quit date: 01/03/21 Tobacco: How many years used: 36 alcohol intake: never substance use type: does not use what type of physical activity do you participate in: none ROS Constitutional Constitutional: Reports fatigue and weakness; Denies chills or fever(s) Eyes Eyes: Denies change in vision Cardiovascular Cardiovascular: Denies chest pain, edema or lightheadedness Respiratory/Chest Respiratory/Chest: Reports cough, dyspnea, shortness of breath at rest, shortness of breath with exertion and wheezing Gastrointestinal Gastrointestinal: Denies abdominal pain, coffee ground emesis, constipation, diarrhea, hematemesis, hematochezia or melena Genitourinary Genitourinary: Denies dysuria or hematuria Musculoskeletal Musculoskeletal: Denies arthralgias or myalgias Neurologic Neurologic: Denies dizziness, focal weakness or headache(s) Vital Signs Vital Signs Vital Signs: 02/04/25 14:41 02/04/25 15:06 02/04/25 15:46 Temperature 98.3 F Temperature Source Oral Pulse Rate 90 Respiratory Rate 22 H Respiratory Effort Short of Breath Respiratory Depth Shallow Respiratory Pattern Tachypnea Blood Pressure 139/75 H 144/81 H Blood Pressure Mean 96 101 Pulse Ox 93 Oxygen Delivery Method Nasal Cannula Nasal Cannula Oxygen Flow Rate (L/min) 3 3 02/04/25 15:47 02/04/25 15:47 02/04/25 16:00 Temperature 98.7 F 98.7 F Temperature Source Oral Oral Pulse Rate 81 84 Respiratory Rate 21 H 11 L Respiratory Effort Respiratory Depth Respiratory Pattern Blood Pressure 144/81 H 140/119 H Blood Pressure Mean 102 126 Pulse Ox 97 97 Oxygen Delivery Method Nasal Cannula Nasal Cannula Nasal Cannula Oxygen Flow Rate (L/min) 2 3 3 02/04/25 16:00 02/04/25 16:11 02/04/25 16:15 Temperature Temperature Source Pulse Rate 84 Respiratory Rate 20 H Respiratory Effort Respiratory Depth Respiratory Pattern Normal Blood Pressure 140/119 H Blood Pressure Mean 127 Pulse Ox 96 99 Oxygen Delivery Method Oxygen Flow Rate (L/min) 02/04/25 16:21 02/04/25 16:30 02/04/25 16:45 Temperature Temperature Source Pulse Rate 85 80 83 Respiratory Rate 16 16 19 H Respiratory Effort Respiratory Depth Respiratory Pattern Blood Pressure 150/101 H 161/100 H Blood Pressure Mean 107 119 Pulse Ox 97 98 99 Oxygen Delivery Method Nasal Cannula Nasal Cannula Oxygen Flow Rate (L/min) 3 3 02/04/25 17:00 02/04/25 17:15 Temperature Temperature Source Pulse Rate 78 79 Respiratory Rate 14 15 Respiratory Effort Respiratory Depth Respiratory Pattern Blood Pressure 170/87 H Blood Pressure Mean 110 Pulse Ox 98 98 Oxygen Delivery Method Oxygen Flow Rate (L/min) Weight Weight: 102.6 kg Body Mass Index (BMI) 44.1 Physical Exam Const alert, oriented x3 and no apparent distress Constitutional Narrative: Elderly female, class III obesity, fatigued and somewhat chronically ill- appearing, otherwise sitting back comfortably in bed, conversing normally, in no acute distress. General Appearance: cooperative and comfortable HEENT normocephalic, head/scalp atraumatic, hearing grossly normal bilaterally, nasal mucous membranes and turbinates normal and moist oral mucous membranes Eyes PERRL, EOMs intact bilaterally and conjunctivae normal Neck full ROM Chest inspection of chest normal Resp normal respiratory effort and no use of accessory muscles Resp Narrative: Breathing comfortably on home 3 L nasal cannula at rest. Moderate wheezing with rhonchi noted in mid to upper airways bilaterally. Cardio regular rate, regular rhythm, no murmurs and peripheral pulses 2+ throughout GI normal to inspection, nondistended, normoactive bowel sounds, soft to palpation, non-tender and non-distended Back/Spine normal ROM Extremity normal to inspection, full ROM and no pedal edema Skin no rashes or lesions noted Psych mental status grossly normal Results Lab / Micro Data 02/04/25 19:33 02/04/25 15:30 Labs: Laboratory Results - last 24 hr 02/04/25 15:30: WBC 15.3 H, RBC 4.19 L, Hgb 9.2 L, Hct 30.5 L, MCV 72.8 L, MCH 22.0 L, MCHC 30.2 L, RDW Std Deviation 46.3 H, RDW Coeff of Ronny 17.4 H, Plt Count 326, MPV 8.3, Immature Gran % (Auto) 1.700 H, Neut % (Auto) 90.4 H, Lymph % (Auto) 4.2 L, [place] % (Auto) 3.0, Eos % (Auto) 0.4, Baso % (Auto) 0.3, Absolute Neuts (auto) 13.8 H, Absolute Lymphs (auto) 0.64 L, Nucleated RBC % 0, Sodium 137, Potassium 4.3, Chloride 94 L, Carbon Dioxide 33.2 H, Anion Gap 10, BUN 21 H , Creatinine 0.87, Estim Creat Clear Calc 63.99, Est GFR (MDRD) Non-Af 71, B UN/Creatinine Ratio 23.6 H, Glucose 192 H, Calcium 9.5 Micro: Microbiology 02/04/25 17:12 Stool Stool Occult Blood (MARIANN) - Final Occult Blood Positive ABG Data ABG results: ABG 02/04/25 16:25 Specimen Type DIANA Sample Site Not entered O2 % 3.0 VBG pH 7.46 H VBG pO2 65 H VBG HCO3 39 H VBG Total CO2 41 H VBG O2 Sat (Calc) 93 H VBG Base Excess 15 H POC Mix VBG pCO2 Pt Tmp 54.5 H O2 Delivery Device Not entered Imaging Radiology Impression Chest X-Ray 02/04/25 15:50 IMPRESSION: No acute process. Reading Location: [facility] Assessment & Plan Assessment/Plan (1) Acute on chronic anemia: PLAN: Plan Patient is a 69-year-old female who presented [facility] ED on 02/04/2025 with worsening shortness of breath. 1. Acute on chronic iron deficiency anemia with concern for GI bleed ? Admit under inpatient status to PCU. GI consulted. Hemoglobin 9.2 on admit, baseline 11-12. Repeat hemoglobin stable at 9.2 on day of admission. BUN 21 (baseline 10-15) with creatinine at baseline concerning for upper GI bleed. Notably did have colonoscopy in December and EGD in August that were unremarkable. Iron studies with severe iron deficiency anemia with ferritin 15. N.p.o. at midnight for likely EGD tomorrow. Will treat with IV PPI twice daily for now. Will also give 2 doses of IV iron at this time. Monitor daily CBC. 2. Mild COPD exacerbation in setting of chronic respiratory failure ? Follows with outpatient pulmonology. Moderate wheezing with rhonchi noted on admission, though patient is at baseline 3 L nasal cannula with good saturations. Will treat with scheduled DuoNebs and IV steroids for now. Notably given possible GI bleed as above, would consider limiting steroids as able. Continue home inhalers. Chronic medical conditions: ? Class III obesity: BMI 44 on admit. Complicates hospital course, care and prognosis. ? Hypothyroidism: Continue home Synthroid. ? Anxiety/depression/PTSD: Stable. Continue home aripiprazole, bupropion, and sertraline. ? Neuropathy: Continue home pregabalin. DVT prophylaxis: SCDs CODE STATUS: DNR CCA, DNI. Notably is okay for short-term intubation if needed. Expected disposition: Home, TBD Total clinical time spent by myself addressing the patient's medical issues, reviewing all the data, and collaborating with patient's care team: 75 minutes. Charges/Coding Visit Charges Inpatient E&M: 68906 Init Hosp L3
--- NOTE | 2025-02-04 18:53 | CASEMGMT ---
Care Management Face to Face with patient for initial transition planning/care coordination assessment in the ED. This physician underwriter introduced self and role at [facility]. Patient alert and oriented. Patient willing to participate in assessment and is able to answer all questions appropriately. Care providers, pharmacy, and demographics verified. Admitting Diagnosis: acute on chronic anemia with shortness of breath Other diagnosis history: chronic respiratory failure on 3 L of oxygen at baseline, thyroid disease, hypertension, COPD and GERD PCP: Tre Weston Specialists: Chris, orthopedics. Jorje Yao, pulmonology. Luis, urologist. Nolvia. Preferred Pharmacy: [facility] Insurance: [employer] Dual (primary). [employer] (secondary). Prescription Benefit: yes Living Will/HPOA: on patient's file. Kayleen aMguire, friend (primary). Kay Reardon, sister (secondary). LNOK: friend/HCPOA Kayleen. Sister Kay. Living Arrangements: lives with Kayleen in a 2 story home with ramp entrance; patient has first floor living. Patient reports being independent with all ADLs with Kayleen doing most of the cooking. Transportation: Kayleen drives patient DME: shower chair, rails/grab bars, ramp entrance to home, hospital bed, walker, hand held shower, nebulizer, pulse ox, O2 through [employer] at 3lpm (looks to have portable O2 tank in room to go home on). HHC: none SNF/Rehab: none Patient goals: Patient wishes to discharge home, denies need for home health care at this time. Patient denies any further needs or concerns at this time. Disposition Plan: admission to acute; RN CM/SW to follow for discharge planning needs that may arise. Patient reports being active with palliative care for about a year. Nga Ramirez, INVENTORY PLANNER, CODING COMPLIANCE AUDITOR
[2025-02-04 18:55] LABS: International Normalized Ratio 0.9; Partial Thromboplast Time 23.8 Seconds (24.1-36.2); Prothrombin Time (Protime)PT. 11.9 SECONDS (11.7-14.9)
[2025-02-04 19:00] LABS: AST(SGOT) 65 U/L (<=31); Alanine Aminotransfer ALT/SGPT 59 U/L (<=34); Albumin, Serum 3.7 g/dL (3.4-4.8); Alkaline Phosphatase 176 U/L (35-104); Bilirubin, Direct < 0.08 mg/dL (0.00-0.30); Globulin 2.7 g/dL (2.2-4.2); Iron 20 ug/dL (50-170); Iron Binding Capacity,Total 449 ug/dL (250-450); Iron Binding Capacity,Unsat 429 ug/dL (228-428); Protein, Total 6.5 g/dL (5.9-8.4); Total Bilirubin 0.15 mg/dL (0.00-1.30); Vitamin B12 375 pg/mL (180-914)
[2025-02-04 19:31] LABS: Ferritin 15 ng/mL (22-378)
[2025-02-04 19:53] LABS: Hematocrit 30.5 % (37-47); Hemoglobin 9.2 g/dL (12.0-15.0); Mean Corp Hgb Conc 30.2 g/dL (32-36); Mean Corpuscular Hgb 21.9 pg (27.0-32.0); Mean Corpuscular Volume 72.4 fL (81-99); Mean Platelet Vol. 8.6 fl (6.2-12.0); Platelet Count 313 K/mm3 (150-450); RBC Distribution Width CV 17.5 % (11.6-14.6); RBC Distribution Width SD 45.6 fl (35.1-43.9); Red Blood Count 4.21 M/mm3 (4.2-5.4); White Blood Count 14.9 K/mm3 (4.4-11.0)
[2025-02-04] MEDS: 0.9% Saline Lock 10 ML Syringe IV (22:43)
[2025-02-04] MEDS: Pregabalin 50 MG Capsule 100 MG PO (22:43)
[2025-02-04] MEDS: Pantoprazole Sodium 40 MG in 0.9% Normal Saline (100mL MB+) 100 ML 330 MG IV (22:45)
[2025-02-04] MEDS: MELATONIN 3 MG TABLET PO (22:56)
[2025-02-05] VITALS (18 sets, daily range): BP systolic 133–161; BP diastolic 75–96; PULSE 70–86; RESP 18–22; TEMP 36.1–37; O2SAT 92–99; BMI 44.1
[2025-02-05] MEDS: Albuterol 2.5 MG/3 ML VIAL.NEB. INHALATION ×2 (03:22→12:52)
[2025-02-05] MEDS: 0.9% Saline Lock 10 ML Syringe IV ×3 (04:28→21:41)
[2025-02-05] MEDS: hydrALAZINE 20 MG/ML Vial 10 MG IV (04:28)
[2025-02-05 05:48] LABS: Hematocrit 30.4 % (37-47); Hemoglobin 9.1 g/dL (12.0-15.0); Mean Corp Hgb Conc 29.9 g/dL (32-36); Mean Corpuscular Hgb 21.6 pg (27.0-32.0); Mean Corpuscular Volume 72.2 fL (81-99); Mean Platelet Vol. 8.6 fl (6.2-12.0); Platelet Count 329 K/mm3 (150-450); RBC Distribution Width CV 17.6 % (11.6-14.6); RBC Distribution Width SD 46.2 fl (35.1-43.9); Red Blood Count 4.21 M/mm3 (4.2-5.4); White Blood Count 16.3 K/mm3 (4.4-11.0)
--- NOTE | 2025-02-05 05:55 | EKG12_ITS ---
Test Reason : SOB Blood Pressure : */* mmHG Vent. Rate : 85 BPM Atrial Rate : 85 BPM P-R Int : 154 ms QRS Dur : 86 ms QT Int : 362 ms P-R-T Axes : 44 16 54 degrees QTcB Int : 430 ms Normal sinus rhythm Normal ECG Confirmed by Denzel Celestin ([id number]), art editor NOAH CHAPA ([id number]) on 02/05/2025 11:14:44 AM Referred By: SHONDA Confirmed By: Denzel Celestin
[2025-02-05 06:15] LABS: Anion Gap 9 (5-15); BUN 24 mg/dL (4-19); BUN/Creat Ratio 27.2 RATIO (10-20); Calcium,Total 9.7 mg/dL (7.6-11.0); Carbon Dioxide 31.1 mmol/L (21.0-32.0); Chloride 97 mmol/L (98-108); Creatinine, Serum 0.89 mg/dL (0.70-1.20); EST Glomerular Filtration Rate 70 (>60); Estimated Creatinine Clearance 62.48 ml/min (50-250); Glucose 172 mg/dL (70-99); Partial Thromboplast Time 22.6 Seconds (24.1-36.2); Potassium 5.2 mmol/L (3.3-5.1); Sodium Level 137 mmol/L (133-145); Thyroid Stim Hormone (TSH) 0.288 uIU/mL (0.300-4.200)
[2025-02-05] MEDS: Sodium Ferric Gluconat 250 MG in 0.9% Normal Saline 250 ML 135 MG IV (06:52)
[2025-02-05] MEDS: Ipratropium/Albuterol Sulfate 3 ML AMPUL.NEB INHALATION ×3 (07:03→20:23)
[2025-02-05] MEDS: Budesonide Respules 0.5 MG/2 ML AMPUL.NEB. INHALATION ×2 (07:03→20:23)
--- NOTE | 2025-02-05 08:32 | PCM.PN.HOSP ---
Reason for Visit Reason for Visit: Diagnoses Anemia, unspecified (02/04/25) Subjective Subjective Still short of breath. Objective Data Objective Data Vital Signs: Vital Signs Temp Pulse Resp BP Pulse Ox O2 Del Method O2 Flow Rate 36.5 C L 77 18 152/90 H 96 Nasal Cannula 3 02/05/25 06:46 02/05/25 07:04 02/05/25 07:04 02/05/25 06:46 02/05/25 07:04 02/05/25 07:04 02/05/25 07:04 Oxygen Flow Rate (L/min) 3 Oxygen Delivery Method Nasal Cannula Weight: 102.4 kg Body Mass Index (BMI) 44.1 Intake & Output: Intake and Output for Last 24 Hours 02/03/25 02/04/25 02/05/25 23:59 23:59 23:59 Intake Total 600 / 700 100 / 100 Output Total 350 / 350 Balance 600 / 700 -250 / -250 Lab / Micro Data 02/05/25 05:26 02/05/25 05:26 Labs: Laboratory Results - last 24 hr 02/04/25 15:30: WBC 15.3 H, RBC 4.19 L, Hgb 9.2 L, Hct 30.5 L, MCV 72.8 L, MCH 22.0 L, MCHC 30.2 L, RDW Std Deviation 46.3 H, RDW Coeff of Ronny 17.4 H, Plt Count 326, MPV 8.3, Immature Gran % (Auto) 1.700 H, Neut % (Auto) 90.4 H, Lymph % (Auto) 4.2 L, [place] % (Auto) 3.0, Eos % (Auto) 0.4, Baso % (Auto) 0.3, Absolute Neuts (auto) 13.8 H, Absolute Lymphs (auto) 0.64 L, Nucleated RBC % 0, PT 11.9, INR 0.9, APTT 23.8 L, Sodium 137, Potassium 4.3, Chloride 94 L, Carbon Dioxide 33.2 H, Anion Gap 10, BUN 21 H, Creatinine 0.87, Estim Creat Clear Calc 63.99, Est GFR (MDRD) Non-Af 71, BUN/Creatinine Ratio 23.6 H, Glucose 192 H, Calcium 9.5, Iron 20 L, TIBC 449, Iron Saturation 5.0 L, Unsaturated IBC 429 H, Ferritin 15 L, Total Bilirubin 0.15, Direct Bilirubin < 0.08, AST 65 H, ALT 59 H, Alkaline Phosphatase 176 H, Total Protein 6.5, Albumin 3.7, Globulin 2.7, Vitamin B12 375 02/04/25 19:33: WBC 14.9 H, RBC 4.21, Hgb 9.2 L, Hct 30.5 L, MCV 72.4 L, MCH 21.9 L, MCHC 30.2 L, RDW Std Deviation 45.6 H, RDW Coeff of Ronny 17.5 H, Plt Count 313, MPV 8.6 02/05/25 05:26: WBC 16.3 H, RBC 4.21, Hgb 9.1 L, Hct 30.4 L, MCV 72.2 L, MCH 21.6 L, MCHC 29.9 L, RDW Std Deviation 46.2 H, RDW Coeff of Ronny 17.6 H, Plt Count 329, MPV 8.6, PT 13.0, INR 1.0, APTT 22.6 L, Sodium 137, Potassium 5.2 H, Chloride 97 L, Carbon Dioxide 31.1, Anion Gap 9, BUN 24 H, Creatinine 0.89, Estim Creat Clear Calc 62.48, Est GFR (MDRD) Non-Af 70, BUN/Creatinine Ratio 27.2 H, Glucose 172 H, Calcium 9.7, TSH 0.288 L Micro: Microbiology 02/04/25 17:12 Stool Stool Occult Blood (MARIANN) - Final Occult Blood Positive ABG Data ABG results: ABG 02/04/25 16:25 Specimen Type DIANA Sample Site Not entered O2 % 3.0 VBG pH 7.46 H VBG pO2 65 H VBG HCO3 39 H VBG Total CO2 41 H VBG O2 Sat (Calc) 93 H VBG Base Excess 15 H POC Mix VBG pCO2 Pt Tmp 54.5 H O2 Delivery Device Not entered Radiography Diagnostic Testing: Radiology Impression Chest X-Ray 02/04/25 15:50 IMPRESSION: No acute process. Reading Location: [facility] Rhythm Strip Rhythm Strip: Sinus Rhythm Rate: 85 Ectopy: None Physical Exam Const alert and no apparent distress HEENT head/scalp atraumatic and moist oral mucous membranes Cardio regular rate, regular rhythm, S1 normal heart sound and S2 normal heart sound GI normal to inspection, nondistended, normoactive bowel sounds, soft to palpation, non-tender, non-distended and hepatosplenomegaly Extremity normal to inspection and full ROM Assessment & Plan Assessment/Plan (1) GI bleed: PLAN: heme positive stools. Unclear source at this time. on IV PPI GI consult pt did have a colonoscopy on 01/[address] De Souza that was normal. EGD 02/05: 3 bleeding angiodysplastic lesions treated with a heater probe. (2) Acute on chronic anemia: PLAN: Hg in September was 11. Now at 9, but stable. monitor. no need for transfusion unless 7 or less Did recieve IV iron (3) Acute exacerbation of chronic obstructive pulmonary disease: PLAN: on BDs and methylprednisolone. PLAN: Plan Chronic conditions: hypothyroidism: levothyroxine HTN: stable. on lisinopril, depression/psychosis: aripiprazole, buproprion obesity class III: complicates care and recovery VTE prophylaxis: SCDs. Charges/Coding Visit Charges Inpatient E&M: 85225 Subs Hosp L2
[2025-02-05] MEDS: Pantoprazole Sodium 40 MG in 0.9% Normal Saline (100mL MB+) 100 ML 330 MG IV ×2 (08:58→21:41)
--- NOTE | 2025-02-05 10:28 | PRE.ANES_ITS ---
ASA Classification* ASA Classification ASA Classification: 3 and E Assessment & Plan Anesthesia* Anesthesia Assessment Anesthesia Assessment: Discussed sedation and/or anesthesia options, risks, benefits, and alternatives with patient/parents/legal guardian/POA. Questions invited. The patient/parents/legal guardian/POA seems to understand and agrees to proceed with anesthesia plan. Reviewed the physical assessment, medical history, allergy history and patient home medications list prior to surgery/procedure/anesthetic and documented any changes. Performed airway and anesthesia risk assessments. Anesthesia Type Anesthesia Type: MAC Anesthesia Focused Assessment* Temperature: 98.0 F Pulse Rate: 77 Blood Pressure: 158/83 Respiratory Rate: 18 Pulse Ox: 92 Oxygen Flow Rate (L/min): 3 Airway Assessment Mouth opens: >3 cm Mallampati Score: II Comment: Echo 01/05/2022. EF 70%. Pulmonary artery pressure 31 mmHg. Labs Anesthesia Preop lab: CBC WBC 16.3 K/mm3 (4.4-11.0) H 02/05/25 05: 5 RBC 4.21 M/mm3 (4.2-5.4) 02/05/25 05:02/05/25 Hgb 9.1 g/dL (12.0-15.0) L 02/05/25 05:02/05/25 Hct 30.4 % (37-47) L 02/05/25 05:02/05/25 Plt Count 329 K/mm3 (150-450) 02/05/25 05:02/05/25 CHEMISTRY Potassium 5.2 mmol/L (3.3-5.1) H 02/05/25 05:26 02/05/25 Sodium 137 mmol/L (133-145) 02/05/25 05:02/05/25 Magnesium 1.8 mg/dL (1.6-2.6) 11/27/22 03:05 11/27/22 BUN 24 mg/dL (4-19) H 02/05/25 05:02/05/25 Creatinine 0.89 mg/dL (0.70-1.20) 02/05/25 05:02/05/25 Glucose 172 mg/dL (70-99) H 02/05/25 05:02/05/25 POC Glucose 145 mg/dL (70-110) H 01/12/21 11:25 01/12/21 TSH 0.288 uIU/mL (0.300-4.200) L 02/05/25 05:26 COAG PT 13.0 SECONDS (11.7-14.9) 02/05/25 05:26 Pre-Assessment Diagnosis/Proposed Procedure Planned Operative Procedure(s): EGD. 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 When Was Last Pacemaker Check QUESTION #4 FULL TEXT: You/Your Family Experience fever (hyperthermia) with Anesthesia Last Oral Intake Last Oral intake: Last Oral Intake NPO since Meds taken in AM with sips of water? Meds patient instructed to take am of surgery PONV PONV - retail project merchandiser: PONV - retail project merchandiser Female HX of Motion Sickness HX of N/V After Surgery Non-Smoker Duration of Surgery greater than 60 minutes Number of Risk Factors PONV Score Height & Weight Height & Weight: Anesthesia: Height & Weight Height 5 ft 02/05/25 06:46 Weight: 102.4 kg 02/05/25 06:46 Body Mass Index (BMI) 44.1 02/05/25 06:46 Respiratory Assessment Respiratory Assessment - retail project merchandiser: Respiratory Tract Infection Hx - retail project merchandiser Hx Respiratory Tract Infection No 01/02/25 12:01 STOP Sleep Apnea STOP Sleep Apnea - retail project merchandiser: STOP Sleep Apnea - retail project merchandiser Hx Hypertension Yes: CONTROLLED WITH MEDS 02/04/25 19:14 Hx Sleep Apnea No 02/04/25 19:14 CPAP BIPAP Do you snore loudly (louder No 02/04/25 19:14 than talking or can be heard Do you often feel tired/ No 02/04/25 19:14 fatigued/ sleepy during daytime? Has anyone observed you stop No 02/04/25 19:14 breathing during sleep? STOP Results Negative 02/04/25 19:14 QUESTION #5 FULL TEXT : Do you snore loudly (louder than talking or can be heard through closed doors)? Tobacco Use History Tobacco Use History - retail project merchandiser: Tobacco Use History - retail project merchandiser Tobacco Use Cigarettes 08/09/24 14:08 Smoking Status Former smoker 02/04/25 19:14 Hx Tobacco Use No 02/04/25 19:14 Years Smoking Packs Smoked per Day Smoking Cessation Date was Yes - quit smoking within 15 02/04/25 19:14 within the last 15 years years Hx Smoking Cessation Date 08/24/20 02/04/25 19:14 Hx Smoking Cessation No 02/04/25 19:14 Counseling Hematologic Medial History Hematologic Hx - retail project merchandiser: Hematologic Medical Hx - gambling counsellor Hx of Blood Transfusion No 02/04/25 19:14 Hx of Transfusion in last 3 No 02/04/25 19:14 Months Date of Last Transfusion (if within last 3 months) Ever experience any problems No 02/04/25 19:14 with transfusion(s)? Specify any problems Hx of Preganancy in last 3 N/A 02/04/25 19:14 Months Nurse Filling Out Transfusion [email or web address] 02/04/25 19:14 & Questions: Date: 02/04/25 02/04/25 19:14 Time: 19:54 02/04/25 19:14 Patient unable to answer at this time (ie. confused, unrespo /Reproduction History /Reproductive History - retail project merchandiser: /Reproductive Hx- retail project merchandiser Hx Now Gestational Age (in weeks): EDC: Hx Hx Para Hx Section SAB No 01/02/25 12:01 Active Medications Active Medications: Current Medications Generic Name Dose Route Start Last Admin Trade Name Freq PRN Reason Stop Dose Admin Acetaminophen 650 mg 02/04/25 19:14 Acetaminophen 325 Mg Tablet PO Q6H PRN PRN Pain 1-10 Or Fever>100.7 Albuterol Sulfate 2.5 mg 02/04/25 19:28 02/05/25 03:22 Albuterol 2.5 Mg/3 Ml Vial.Neb. INHALATION 2.5 mg Q4H PRN Administration shortness of breath or wheezing Albuterol/Ipratropium 3 ml 02/04/25 19:14 02/05/25 07:03 Ipratropium/Albuterol Sulfate 3 Ml Ampul.Neb INHALATION 3 ml Q4HWA.RT PRATIK Administration Aripiprazole 20 mg 02/05/25 10:00 02/05/25 08:58 Aripiprazole 10 Mg Tablet PO Not Given DAILY PRATIK Budesonide 0.5 mg 02/04/25 22:00 02/05/25 07:03 Budesonide Respules 0.5 Mg/2 Ml Ampul.Neb. INHALATION 0.5 mg Q12H.RT PRATIK Administration Bupropion HCl 300 mg 02/05/25 10:00 02/05/25 08:58 Bupropion (Xl) 300 Mg Tablet.Xl PO Not Given DAILY PRATIK Hydroxyzine Pamoate 25 mg 02/04/25 19:14 Hydroxyzine Lucy 25 Mg Capsule PO TID PRN anxiety Sodium Chloride 250 mls @ 15 mls/hr 02/04/25 19:42 IV .[id number] PRN Saline Flush Sodium Chloride 250 mls @ 15 mls/hr 02/04/25 19:42 IV .[id number] PRN Additional IVPB Infusion Pantoprazole Sodium 40 mg/ 100 mls @ 330 mls/hr 02/04/25 22:00 02/05/25 10:19 Sodium Chloride IV Infused Q12 PRATIK Infusion Ferric Sodium Gluconate 270 mls @ 135 mls/hr 02/05/25 06:00 02/05/25 10:19 Complex 250 mg/ Sodium IV 02/06/25 07:59 Infused Chloride 0600 PRATIK Infusion Levothyroxine Sodium 50 mcg 02/05/25 06:00 02/05/25 06:49 Levothyroxine 50 Mcg Tablet PO Not Given DAILY@0600 PRATIK Melatonin 3 mg 02/04/25 22:00 02/04/25 22:56 Melatonin 3 Mg Tablet PO 3 mg QHS PRN PRN Administration INSOMNIA Methylprednisolone 40 mg 02/04/25 22:00 02/05/25 06:49 Methylprednisolone 40 Mg/Ml Vial IV 40 mg Q8 PRATIK Administration Ondansetron HCl 4 mg 02/04/25 19:14 Ondansetron 4 Mg/2 Ml Vial IV Q8H PRN PRN NAUSEA/VOMITING Pregabalin 100 mg 02/04/25 22:00 02/05/25 06:49 Pregabalin 50 Mg Capsule PO Not Given TID PRATIK Sertraline HCl 200 mg 02/05/25 10:00 02/05/25 08:58 Sertraline 100 Mg Tablet PO Not Given DAILY PRATIK Sodium Chloride 10 - 40 ml 02/04/25 19:42 02/05/25 06:49 0.9% Saline Lock 10 Ml Syringe IV 10 ml UD PRN Administration SALINE FLUSH [facility] Medical History Chronic respiratory failure with hypoxia COPD (chronic obstructive pulmonary disease) Bladder disease History of pain when walking History of rheumatic fever History of ESBL E. coli infection Wears dentures Wears glasses Thyroid disease Walker as ambulation aid Uses wheelchair Gastric reflux Former smoker Dependence on continuous supplemental oxygen Shortness of breath on exertion History of echocardiogram Hypoxia BMI 40.0-44.9, adult Spinal stenosis Encounter for screening for malignant neoplasm of lung in current smoker with 30 pack year history or greater Degenerative lumbar spinal stenosis Oral thrush Cough due to bronchospasm Dyspnea on exertion Arthritis Kidney stones GERD (gastroesophageal reflux disease) Hypertension Anxiety and depression COPD (chronic obstructive pulmonary disease) PTSD (post-traumatic stress disorder) Home Medications ?Medication ?Instructions ?Recorded ?Last Taken ?Type sertraline 100 mg tablet 200 mg PO DAILY depression 0 10/23/20 02/04/25 History aripiprazole 20 mg tablet 20 mg PO DAILY mood 01/06/21 02/04/25 History Pulse oximeter #1 ea 02/05/21 Unknown Rx blood pressure monitor (Blood #1 ea 02/05/21 Unknown R x Pressure Kit) walker (Ultra-Light Rollator misc) #1 ea 03/24/21 Unkn own Rx underpads (Bed Underpads) #40 ea 02/16/22 Unknown Rx nebulizer 12/08/22 Unknown History levothyroxine 50 mcg tablet 50 mcg PO DAILY #30 tabs 1 10/10/22 02/04/25 Rx albuterol sulfate 90 mcg/actuation 2 puff inhalation Q 4-6H PRN 12/01/23 02/04/25 History aerosol inhaler shortness of breath or wheez ing albuterol sulfate 2.5 mg/3 mL 2.5 mg inhalation Q6H MO N 06/21/24 02/04/25 History (0.083 %) solution for nebulization shortness of breat h or wheezing bupropion HCl 300 mg 24 hr tablet, 300 mg PO DAILY 02/04/25 History extended release esomeprazole magnesium 40 mg 40 mg PO QDAY 09/07/24 History capsule,delayed release roflumilast 500 mcg tablet 500 mcg PO QDAY 09/07/24 History d-mannose 500 mg capsule 1,000 mg PO BID 01/02/2505/23 History hydroxyzine HCl 25 mg tablet 25 mg PO TID PRN anxiety 01/02/25 Unknown History budesonide 160 mcg-glycopyr 9 2 inh inhalation BID #10 .7 grams 01/31/25 02/04/25 Rx mcg-formot 4.8 mcg/actuation HFA inhaler (Breztri Aerosphere) furosemide 20 mg tablet 20 mg PO QDAY 01/31/2502/04 History lisinopril 20 mg tablet 20 mg PO QDAY 01/31/2502/04 History pregabalin 100 mg capsule 100 mg PO TID 01/31/2502/04 History sucralfate 1 gram tablet 1 g PO TID 01/31/25 02/04/25 History Allergy/AdvReac Type Severity Reaction Status Date / Time Sulfa (Sulfonamide Allergy Vomiting Verified 02/04/25 14:41 Antibiotics) Family History Mother Diabetes Hypertension Breast cancer Father Heart disease Hypertension Myocardial infarction, Onset Age: 46 Surgical History History of esophagogastroduodenoscopy (EGD) Hx of hernia repair Hx of cholecystectomy History of hand surgery History of hysterectomy History of History of D&C Social History household members: none Smoking Status: Former smoker quit date: 01/03/21 Tobacco: How many years used: 36 alcohol intake: never substance use type: does not use what type of physical activity do you participate in: none Review of Systems (Anesthesia) ROS Narrative System reviewed and no additional complaints, except as documented.
[2025-02-05] MEDS: Lactated Ringers 1,000 ML 15 ML IV (10:51)
--- NOTE | 2025-02-05 12:06 | PCM.PN.BLA ---
Progress Note MAX TOM, is a 69-year-old female with history of chronic respiratory failure on 3 L of oxygen at baseline, thyroid disease, hypertension, COPD and GERD presenting with worsening shortness of breath. Patient states she has had worsening respiratory symptoms for the past 48 hours however became much more worse today. She states Dr. Yao started her on prednisone 40 mg on Tuesday for her breathing. States she is been coughing up a lot but feels that there is other mucus that is too deep and thick to get out. States the mucus is beige in color. She denies any chest pain but does have chest tightness. Denies any fever or leg swelling. Does report some associated sinus congestion. Came in for further evaluation per recommendation of the pulmonology office. I was called due to worsening hemoglobin and she also admitted to melanotic stools. Physical Exam Const alert, oriented x3, no apparent distress and healthy appearing General Appearance: cooperative GI normal to inspection, nondistended, normoactive bowel sounds, soft to palpation, non-tender and non-distended Percussion: normal to percussion Rectal Exam: deferred Assessment & Plan Assessment/Plan (1) GI bleed: PLAN: 69-year-old with acute on chronic anemia. Heme positive stools. pt did have a colonoscopy on 01/[address] De Souza that was normal. She will undergo an EGD and possible capsule endoscopy. She was explained alternatives, risk and benefits include not withstanding bleeding, fracture, subs, perforation, need for more surgery . She will have an ASA of 3. (2) Acute on chronic anemia: (3) Acute exacerbation of chronic obstructive pulmonary disease:
--- NOTE | 2025-02-05 12:42 | OP.EGD_ITS ---
Patient Name: Janina Heart Procedure Date: 02/05/2025 12:04 PM Date of : 1955 Age: 69 Procedure: Upper GI endoscopy Indications: Acute post hemorrhagic anemia, Heme positive stool, Melena, Occult blood in stool Providers: Moncho Ghosh DO Medicines: Monitored Anesthesia Care Patient Profile: This is a 69 year old female. Refer to note in patient chart for documentation of history and physical. Patient has symptoms. Complications: No immediate complications. Procedure: Pre-Anesthesia Assessment: - Prior to the procedure, a History and Physical was performed, and patient medications and allergies were reviewed. The patient is competent. The risks and benefits of the procedure and the sedation options and risks were discussed with the patient. All questions were answered and informed consent was obtained. Patient identification and proposed procedure were verified by the physician in the pre-procedure area. Mental Status Examination: alert and oriented. Airway Examination: normal oropharyngeal airway and neck mobility. Respiratory Examination: clear to auscultation. CV Examination: normal. Prophylactic Antibiotics: The patient does not require prophylactic antibiotics. Prior Anticoagulants: The patient has taken no anticoagulant or antiplatelet agents except for NSAID medication. ASA Grade Assessment: II - A patient with mild systemic disease. After reviewing the risks and benefits, the patient was deemed in satisfactory condition to undergo the procedure. The anesthesia plan was to use monitored anesthesia care (MAC). Immediately prior to administration of medications, the patient was re-assessed for adequacy to receive sedatives. The heart rate, respiratory rate, oxygen saturations, blood pressure, adequacy of pulmonary ventilation, and response to care were monitored throughout the procedure. The physical status of the patient was re-assessed after the procedure. After obtaining informed consent, the endoscope was passed under direct vision. Throughout the procedure, the patient's blood pressure, pulse, and oxygen saturations were monitored continuously. The gastroscope was introduced through the mouth, and advanced to the fourth part of duodenum. The upper GI endoscopy was accomplished without difficulty. The patient tolerated the procedure well. Scope In: 12:20:26 PM Scope Out: 12:26:05 PM Total Procedure Duration Time 0 hours 5 minutes 39 seconds Findings: The examined esophagus was normal. No gross lesions were noted in the entire examined stomach. Three 5 mm angiodysplastic lesions with bleeding were found in the first portion of the duodenum, in the second portion of the duodenum and in the third portion of the duodenum. Coagulation for hemostasis using heater probe was successful. Estimated blood loss was minimal. Impression: - Normal esophagus. - No gross lesions in the entire stomach. - Three bleeding angiodysplastic lesions in the duodenum. Treated with a heater probe. - No specimens collected. Recommendation: - [facility]. - Resume previous diet. - Continue present medications. Procedure Code(s): --- Professional --- 06395, Esophagogastroduodenoscopy, flexible, transoral; with control of bleeding, any method CPT copyright 2021 [employer]. All rights reserved. The codes documented in this report are preliminary and upon tech brazer tester review may be revised to meet current compliance requirements. Moncho Ghosh DO 02/05/2025 12:42:34 PM This report has been signed electronically. Number of Addenda: 0 Note Initiated On: 02/05/2025 12:04 PM
--- NOTE | 2025-02-05 12:43 | OP.CCLET_ITS ---
02/05/2025 Tre Weston Md Re : Upper GI endoscopy procedure for Janina Heart Dear Trista This procedure was performed on Wednesday, February 05, 2025. My impressions and recommendations are as follows: Impressions : - Normal esophagus. - No gross lesions in the entire stomach. - Three bleeding angiodysplastic lesions in the duodenum. Treated with a heater probe. - No specimens collected. Recommendations : - [facility]. - Resume previous diet. - Continue present medications. My findings are described in the full procedure note, which is enclosed. If I can be of further assistance, please feel free to contact me at . Sincerely, Moncho Ghosh, 02/05/2025 12:42:34 PM This report has been signed electronically.
--- NOTE | 2025-02-05 12:46 | SUR.PHASEI ---
PATIENT HAS COARSE SOUNDING LUNG SOUNDS, AND A WET SOUNDING COUGH. PATIENT STATES SHE HAS THIS ALL THE TIME. TACHYPNEIC AND IS SHORT OF BREATH. O2 SAT 95 ON 3L ROOM AIR. SHE HASN'T HAD HER PRN BREATHING TREATMENT SINCE 3 AM. I CALLED RESPIRATORY TO GIVE HER A TREATMENT.
--- NOTE | 2025-02-05 12:54 | SUR.PHASEI ---
DR. HORTA NOTIFIED OF PATIENT'S NEED FOR A BREATHING TREATMENT. HE WAS AGREED THAT SHE NEEDED IT.
--- NOTE | 2025-02-05 13:33 | PCM.POST.ANE ---
Anesthesia: Postop Eval I Current Vital Signs Temperature: 97.6 F Pulse Rate: 77 Blood Pressure: 137/85 Respiratory Rate: 18 Pulse Ox: 93 Oxygen Delivery Method: Nasal Cannula Oxygen Flow Rate (L/min): 3 Assessment Airway patent: Yes Spontaneous unlabored respirations: Yes Mental status: Awake nausea: No Vomiting: No Anesthesia Complication: No Fluid Hydration Crystalloid volume administer (ml): 20 Total IV fluid infused: 20 Progress Note Anesthesia document: Postop Eval 1 completed: Yes
--- NOTE | 2025-02-05 13:35 | PCM.POSTANE2 ---
Anesthesia Postop Eval I Sum Postop Eval Completion status Anesthesia document: Postop Eval 1 completed: Yes Anesthesia Postop Eval I Summary Anesthesia Postop Eval I Summary: Anesthesia Postop Eval I: Assessment Summary Airway patent Yes 02/05/25 13:34 Spontaneous unlabored Yes 02/05/25 13:34 respirations Mental status Awake 02/05/25 13:34 nausea No 02/05/25 13:34 Vomiting No 02/05/25 13:34 Anesthesia Postop Eval I: Fluid Summary Crystalloid volume administer 20 02/05/25 13:34 (ml) Colloids volume administered ( ml) Blood Product volume administered (ml) Total IV fluid infused 20 02/05/25 13:34 Anesthesia Postop Eval I: Summary Notes Anesthesia Complication No 02/05/25 13:34 Anesthesia Complication Comment: Post-operative progress note Anesthesia: Postop Eval II Evaluation Mental status: Awake Pain Level: 0 nausea: No Vomiting: No
[2025-02-05] MEDS: Pregabalin 50 MG Capsule 100 MG PO ×2 (13:36→21:43)
--- NOTE | 2025-02-05 14:30 | PCM.POST.ANE ---
Anesthesia: Postop Eval I Current Vital Signs Temperature: 97.6 F Pulse Rate: 77 Blood Pressure: 137/85 Respiratory Rate: 18 Pulse Ox: 93 Oxygen Delivery Method: Room Air Assessment Airway patent: Yes Spontaneous unlabored respirations: Yes Mental status: Awake nausea: No Vomiting: No Anesthesia Complication: No Fluid Hydration Crystalloid volume administer (ml): 200 Total IV fluid infused: 200 Progress Note Anesthesia document: Postop Eval 1 completed: Yes
[2025-02-05] MEDS: MELATONIN 3 MG TABLET PO (23:18)
[2025-02-06] VITALS (7 sets, daily range): BP systolic 153–160; BP diastolic 77–94; PULSE 75–102; RESP 18–20; TEMP 36.3; O2SAT 88–98
[2025-02-06] MEDS: Levothyroxine 50 MCG Tablet PO (05:48)
[2025-02-06] MEDS: 0.9% Saline Lock 10 ML Syringe IV (05:48)
[2025-02-06] MEDS: Pregabalin 50 MG Capsule 100 MG PO ×2 (05:48→13:26)
[2025-02-06] MEDS: Sodium Ferric Gluconat 250 MG in 0.9% Normal Saline 250 ML 135 MG IV (05:52)
[2025-02-06 06:13] LABS: Absolute Lymphocyte Count 2.48 X10^3/uL (0.83-4.51); Absolute Neutrophil Count 12.8 X10^3/uL (2.0-7.7); Basophil# 0.03 X10^3/uL; Basophil% 0.2 % (0-1); Eosinophil# 0.14 X10^3/uL; Eosinophils% 0.8 % (0-5); Hematocrit 31.5 % (37-47); Hemoglobin 9.5 g/dL (12.0-15.0); Lymphocyte # 2.48 X10^3/ul (0.83-4.51); Lymphocyte % 14.6 % (19-41); Mean Corp Hgb Conc 30.2 g/dL (32-36); Mean Corpuscular Hgb 21.9 pg (27.0-32.0); Mean Corpuscular Volume 72.6 fL (81-99); Mean Platelet Vol. 8.6 fl (6.2-12.0); Monocyte% 6.5 % (0-10); NRBC Flagged by Analyzer 0.2 % (0-5); Neutrophil # 12.81 X10^3/uL (2.7-7.7); Neutrophil % 75.3 % (47-70); Platelet Count 403 K/mm3 (150-450); RBC Distribution Width SD 46.9 fl (35.1-43.9); Red Blood Count 4.34 M/mm3 (4.2-5.4)
[2025-02-06 06:45] LABS: Anion Gap 10 (5-15); BUN 22 mg/dL (4-19); BUN/Creat Ratio 23.4 RATIO (10-20); Calcium,Total 9.8 mg/dL (7.6-11.0); Carbon Dioxide 29.3 mmol/L (21.0-32.0); Chloride 97 mmol/L (98-108); Creatinine, Serum 0.94 mg/dL (0.70-1.20); EST Glomerular Filtration Rate 65 (>60); Estimated Creatinine Clearance 59.15 ml/min (50-250); Glucose 94 mg/dL (70-99); Potassium 4.4 mmol/L (3.3-5.1); Sodium Level 137 mmol/L (133-145)
[2025-02-06] MEDS: Ipratropium/Albuterol Sulfate 3 ML AMPUL.NEB INHALATION ×3 (07:10→14:55)
[2025-02-06] MEDS: Budesonide Respules 0.5 MG/2 ML AMPUL.NEB. INHALATION (07:10)
--- NOTE | 2025-02-06 08:19 | PN.HOSP_ITS ---
Reason for Visit Reason for Visit: Diagnoses Anemia, unspecified (02/04/25) Chronic obstructive pulmonary disease with (acute) exacerbation (02/04/25) Gastrointestinal hemorrhage, unspecified (02/04/25) Subjective Subjective 2 L nasal cannula which is what she is on at home. Objective Data Objective Data Vital Signs: Vital Signs Temp Pulse Resp BP Pulse Ox O2 Del Method O2 Flow Rate 36.3 C L 75 18 153/77 H 98 Nasal Cannula 3 02/06/25 03:55 02/06/25 07:11 02/06/25 07:11 02/06/25 03:55 02/06/25 07:11 02/06/25 07:11 02/06/25 07:11 Oxygen Flow Rate (L/min) 3 Oxygen Delivery Method Nasal Cannula Weight: 102.4 kg Body Mass Index (BMI) 44.1 Intake & Output: Intake and Output for Last 24 Hours 02/04/25 02/05/25 02/06/25 23:59 23:59 23:59 Intake Total 600 / 700 1950 / 1950 0 / 0 Output Total 1400 / 1400 550 / 550 Balance 600 / 700 550 / 550 -550 / -550 Lab / Micro Data 02/06/25 05:55 02/06/25 05:55 Labs: Laboratory Results - last 24 hr 02/06/25 05:55: WBC 17.0 H, RBC 4.34, Hgb 9.5 L, Hct 31.5 L, MCV 72.6 L, MCH 21.9 L, MCHC 30.2 L, RDW Std Deviation 46.9 H, RDW Coeff of Ronny 18.0 H, Plt Count 403, MPV 8.6, Immature Gran % (Auto) 2.600 H, Neut % (Auto) 75.3 H, Lymph % (Auto) 14.6 L, Bowman % (Auto) 6.5, Eos % (Auto) 0.8, Baso % (Auto) 0.2, A bsolute Neuts (auto) 12.8 H, Absolute Lymphs (auto) 2.48, Nucleated RBC % 0.2, Sodium 137, Potassium 4.4, Chloride 97 L, Carbon Dioxide 29.3, Anion Gap 10, BUN 22 H, Creatinine 0.94, Estim Creat Clear Calc 59.15, Est GFR (MDRD) Non-Af 65, B UN/Creatinine Ratio 23.4 H, Glucose 94, Calcium 9.8 Micro: Microbiology 02/04/25 17:12 Stool Stool Occult Blood (MARIANN) - Final Occult Blood Positive Rhythm Strip Rhythm Strip: Sinus Rhythm Rate: 85 Ectopy: None Physical Exam Const alert and no apparent distress Constitutional Narrative: In bed. Nontoxic. No respiratory distress. No conversational dyspnea. Resp normal respiratory effort and no retractions Cardio regular rate, regular rhythm, S1 normal heart sound and S2 normal heart sound GI normal to inspection, nondistended, normoactive bowel sounds, soft to palpation, non-tender and non-distended Assessment & Plan Assessment/Plan (1) GI bleed: PLAN: heme positive stools. Unclear source at this time. on IV PPI GI consult pt did have a colonoscopy on 01/[address] De Souza that was normal. EGD 02/05: 3 bleeding angiodysplastic lesions treated with a heater probe. (2) Acute on chronic anemia: PLAN: Hg in September was 11. But has remained stable here. monitor. no need for transfusion unless 7 or less Did recieve IV iron x 1 while she was here. (3) Acute exacerbation of chronic obstructive pulmonary disease: PLAN: on BDs and methylprednisolone. Overall improved. Will discharge with prednisone 5-day burst of 40 mg daily. PLAN: Plan Chronic conditions: * hypothyroidism: levothyroxine * HTN: stable. on lisinopril, * depression/psychosis: aripiprazole, buproprion * obesity class III: complicates care and recovery VTE prophylaxis: SCDs. Seen by therapy and the patient is at her baseline. Patient feels comfortable returning home where she has people there she lives with.
--- NOTE | 2025-02-06 09:23 | CASEMGMT ---
Lauren from [facility] called for an update with pt DC plan. Informed her we are waiting for therapy to work with pt, they were unable to work with her yesterday D/T her low HGB level.
[2025-02-06] MEDS: Pantoprazole Sodium 40 MG in 0.9% Normal Saline (100mL MB+) 100 ML 330 MG IV (09:56)
[2025-02-06] MEDS: ARIPiprazole 10 MG Tablet 20 MG PO (10:00)
[2025-02-06] MEDS: ROFLUMILAST 500 MCG TABLET PO (10:00)
[2025-02-06] MEDS: Sertraline 100 MG Tablet 200 MG PO (10:00)
[2025-02-06] MEDS: buPROPion (XL) 300 MG TABLET.XL PO (10:00)
[2025-02-06] MEDS: Lisinopril 20 MG Tablet PO (13:26)
--- NOTE | 2025-02-06 16:38 | DS.PCM_ITS ---
Providers Date of Admission: 02/04/25 Primary Care Physician: Tre Weston MD Consultations 02/04/25 21:15 Consult: Gastroenterology Routine Consulting Provider: Lauren Gastroenter[facility] Reason for Consult: acute on chronic anemia w/ suspected upper GIB EMERGENT Consult: No MD Notified: Yes Date Notified: 02/05/25 Time Notified: 05:57 Method of Notification: Text Reason For Visit: ACUTE ON CHRONIC ANEMIA W/ SHORTNESS OF BREATH Diagnosis Discharge Diagnosis (1) GI bleed: Status: Acute Code(s): K92.2 - Gastrointestinal hemorrhage, unspecified Plan: heme positive stools. Unclear source at this time. on IV PPI GI consult pt did have a colonoscopy on 01/[address] De Souza that was normal. EGD 02/05: 3 bleeding angiodysplastic lesions treated with a heater probe. (2) Acute on chronic anemia: Status: Chronic Code(s): D64.9 - Anemia, unspecified Plan: Hg in September was 11. But has remained stable here. monitor. no need for transfusion unless 7 or less Did recieve IV iron x 1 while she was here. (3) Acute exacerbation of chronic obstructive pulmonary disease: Status: Chronic Code(s): J44.1 - Chronic obstructive pulmonary disease with (acute) exacerbation Plan: on BDs and methylprednisolone. Overall improved. Will discharge with prednisone 5-day burst of 40 mg daily. Plan Chronic conditions: * hypothyroidism: levothyroxine * HTN: stable. on lisinopril, * depression/psychosis: aripiprazole, buproprion * obesity class III: complicates care and recovery VTE prophylaxis: SCDs. Seen by therapy and the patient is at her baseline. Patient feels comfortable returning home where she has people there she lives with. Medications at Discharge Home Medications sertraline 100 mg tablet 200 mg PO DAILY depression 10/23/20 aripiprazole 20 mg tablet 20 mg PO DAILY mood 01/06/21 Pulse oximeter #1 ea 02/05/21 blood pressure monitor (Blood Pressure Kit) #1 ea 02/05/21 walker (Ultra-Light Rollator misc) #1 ea 03/24/21 underpads (Bed Underpads) #40 ea 02/16/22 nebulizer 12/08/22 levothyroxine 50 mcg tablet 50 mcg PO DAILY #30 tabs 08/09/23 albuterol sulfate 90 mcg/actuation aerosol inhaler 2 puff inhalation Q4-6H PRN shortness of breath or wheezing 12/01/23 albuterol sulfate 2.5 mg/3 mL (0.083 %) solution for nebulization 2.5 mg inhalation Q6H PRN shortness of breath or wheezing 06/21/24 bupropion HCl 300 mg 24 hr tablet, extended release 300 mg PO DAILY 06/21/24 esomeprazole magnesium 40 mg capsule,delayed release 40 mg PO QDAY 09/07/24 roflumilast 500 mcg tablet 500 mcg PO QDAY 09/07/24 d-mannose 500 mg capsule 1,000 mg PO BID 01/02/25 hydroxyzine HCl 25 mg tablet 25 mg PO TID PRN anxiety 01/02/25 budesonide 160 mcg-glycopyr 9 mcg-formot 4.8 mcg/actuation HFA inhaler (Breztri Aerosphere) 2 inh inhalation BID #10.7 grams 01/31/25 furosemide 20 mg tablet 20 mg PO QDAY 01/31/25 lisinopril 20 mg tablet 20 mg PO QDAY 01/31/25 pregabalin 100 mg capsule 100 mg PO TID 01/31/25 sucralfate 1 gram tablet 1 g PO TID 01/31/25 prednisone 20 mg tablet 40 mg (2 x 20 mg) PO DAILY #10 tabs 02/06/25 Hospital Course Operations None Procedures EGD Summary of Care Provided Minutes Spent on Discharge: 32 Hospital Course: Patient presents with shortness of breath. [place] to be due to COPD exacerbation and was on steroids and bronchodilators and is overall improved. Patient be discharged with prednisone burst. But also while she was here was noted that her hemoglobin dropped from 11 in September to 9. Patient was heme positive. Patient under went an EGD that showed 3 bleeding angiodysplastic lesions in the duodenum that is treated with heater probe. Patient did receive a dose of IV iron and did not require any transfusions while she was here. Patient is otherwise doing well and breathing at her baseline and feels comfortable returning home. Patient does have a poor baseline performance status but has been deemed stable by therapy. Weight / BMI Weight Weight: 102.4 kg Body Mass Index (BMI) 44.1 ABG / Lab / Microbiology Data 02/06/25 05:55 02/06/25 05:55 Laboratory: Laboratory Results - last 24 hr 02/06/25 05:55: WBC 17.0 H, RBC 4.34, Hgb 9.5 L, Hct 31.5 L, MCV 72.6 L, MCH 21.9 L, MCHC 30.2 L, RDW Std Deviation 46.9 H, RDW Coeff of Ronny 18.0 H, Plt Count 403, MPV 8.6, Immature Gran % (Auto) 2.600 H, Neut % (Auto) 75.3 H, Lymph % (Auto) 14.6 L, [place] % (Auto) 6.5, Eos % (Auto) 0.8, Baso % (Auto) 0.2, A bsolute Neuts (auto) 12.8 H, Absolute Lymphs (auto) 2.48, Nucleated RBC % 0.2, Sodium 137, Potassium 4.4, Chloride 97 L, Carbon Dioxide 29.3, Anion Gap 10, BUN 22 H, Creatinine 0.94, Estim Creat Clear Calc 59.15, Est GFR (MDRD) Non-Af 65, B UN/Creatinine Ratio 23.4 H, Glucose 94, Calcium 9.8 Microbiology: Microbiology 02/04/25 17:12 Stool Stool Occult Blood (MARIANN) - Final Occult Blood Positive D/C Instructions Discharge Diet: No restrictions DC O2, CPAP, BIPAP Needs Home O2 Discharge instructions: Yes Type of respiratory needs?: Oxygen Oxygen frequency: Continuous Continuous oxygen liters per minute: 2 DC home with Oxygen: Yes Home O2 MD Review: I have reviewed the oxygen testing, and the patient qualifies for home oxygen equipment and portability. The patient is mobile in the home and the community. Meaningful Use Info Meaningful Use Meaningful Use Diagnoses (Choose all that apply): None applicable Ischemic Stroke Statin Dosing Therapy Reference: STATIN DOSE THERAPY REFERENCE: * Patients > 75 years receive moderate or high dose statin therapy. * Patients 75 years or YOUNGER should receive HIGH intensity statin dose unless contraindicated. You will be required to document reason for non-treatment if statin daily dose does not meet guidelines. HIGH DOSE STATIN THERAPY DAILY Atorvastatin > than or = to 40 mg Rosuvastatin > than or = to 20 mg Amlodipine + Atorvastatin > than or = to 2.5/40 mg Ezetimibe + Simvastatin 10/80 mg Simvastatin 80mg Discharge Plan Admission Admit Date/Time: 02/04/25 18:04 Primary Reason for Your Visit: COPD exacerbation Attending Provider: Kevin Leslie Primary Care Provider: Tre Weston Consulting Providers: Chidi Conde Discharge Orders/Prescriptions Prescriptions: New prednisone 20 mg tablet 40 mg PO DAILY Qty: 10 0RF Continued (DME) nebulizer 0 .Route .MEDSUPPLY albuterol sulfate 90 mcg/actuation HFA aerosol inhaler 2 puff inhalation Q4-6H PRN (Reason: shortness of breath or wheezing) sucralfate 1 gram tablet 1 g PO TID lisinopril 20 mg tablet 20 mg PO QDAY furosemide 20 mg tablet 20 mg PO QDAY pregabalin 100 mg capsule 100 mg PO TID Breztri Aerosphere 160-9-4.8 mcg/actuation HFA aerosol inhaler 2 inh inhalation BID Qty: 10.7 6RF roflumilast 500 mcg tablet 500 mcg PO QDAY esomeprazole magnesium 40 mg capsule,delayed release(DR/EC) 40 mg PO QDAY sertraline 100 mg tablet 200 mg PO DAILY aripiprazole 20 mg tablet 20 mg PO DAILY albuterol sulfate 2.5 mg /3 mL (0.083 %) solution for nebulization 2.5 mg inhalation Q6H PRN (Reason: shortness of breath or wheezing) bupropion HCl 300 mg tablet extended release 24 hr 300 mg PO DAILY d-mannose 500 mg capsule 1,000 mg PO BID hydroxyzine HCl 25 mg tablet 25 mg PO TID PRN (Reason: anxiety) (DME) blood pressure monitor [Blood Pressure Kit] Kit See Rx Instructions .ROUTE .MEDSUPPLY Qty: 1 0RF Rx Instructions: Check daily and as needed (DME) Pulse oximeter See Rx Instructions .Route .MEDSUPPLY Qty: 1 0RF Rx Instructions: Monitor daily or as needed (DME) Ultra-Light Rollator Misc See Rx Instructions .ROUTE .MEDSUPPLY Qty: 1 0RF Rx Instructions: As directed (DME) underpads [Bed Underpads] Pad See Rx Instructions .Route Qty: 40 6RF Rx Instructions: R32. levothyroxine 50 mcg tablet 50 mcg PO DAILY Qty: 30 2RF Referrals / Follow Up: Tre Weston MD [Primary Care Provider] - Within 2 Weeks Disposition Disposition (needs filled in before D/C Order can be placed): Home, Self Care Charges/Coding Visit Charges Inpatient E&M: 37281 Disch Hosp >30min
[2025-02-06 17:08] LABS: Bedside Glucose 235 mg/dL (74-106)
[2025-02-08 16:09] LABS: Folate, RBC (Hct) Test 34.1 % (34.0-46.6); Folates, RBC Test 1331 ng/mL (>498)
== END 2025-02-06 18:20 | disposition home or self-care (01) | DRG 811 ==
LOC: ED 18:14 → PCU 18:28
PROVIDERS: Anesthesiology; Internal Medicine Gastroenterology; Admitting Provider Hospitalist; Emergency Provider Emergency Medicine; PCP Family Medicine
PROC: 0DJ08ZZ Inspection of Upper Intestinal Tract, Via Natural or Artificial Opening Endoscopic (ICD-10-PCS; CPT 43235; principal; 2025-02-05 11:25)
DX: D64.9 Anemia, unspecified (principal); K31.811 Angiodysplasia of stomach and duodenum with bleeding; J44.1 Chronic obstructive pulmonary disease with (acute) exacerbation; Z68.41 Body mass index [BMI] 40.0-44.9, adult; J96.11 Chronic respiratory failure with hypoxia; F29 Unspecified psychosis not due to a substance or known physiological condition; Z66 Do not resuscitate; I10 Essential (primary) hypertension; E03.9 Hypothyroidism, unspecified; F32.A Depression, unspecified; G62.9 Polyneuropathy, unspecified; R19.5 Other fecal abnormalities; F41.9 Anxiety disorder, unspecified; F43.10 Post-traumatic stress disorder, unspecified; Z79.890 Hormone replacement therapy; Z90.710 Acquired absence of both cervix and uterus; E66.813 Obesity, class 3; Z87.891 Personal history of nicotine dependence
CPT/HCPCS: 36415; 71046; 80048; 80076; 82274; 82607; 82728; 82747; 82803; 82962; 83540; 83550; 84443; 85014; 85025; 85027; 85610; 85730; 93005; 94640; 94668; 97161; 97166; 99285; C1889; A4216; J2916

== ENCOUNTER → 2025-02-18 | Outpatient (CLI) | payer MEDICARE, MEDICAID, SELFPAY ==
[2024-08-09 14:08] VITALS: BMI 41.0
[2025-02-18 15:15] LABS: Absolute Lymphocyte Count 0.74 X10^3/uL (0.83-4.51); Absolute Neutrophil Count 15.8 X10^3/uL (2.0-7.7); Basophil# 0.05 X10^3/uL; Basophil% 0.3 % (0-1); Eosinophil# 0.13 X10^3/uL; Eosinophils% 0.7 % (0-5); Hematocrit 34.3 % (37-47); Hemoglobin 10.1 g/dL (12.0-15.0); Lymphocyte # 0.74 X10^3/ul (0.83-4.51); Lymphocyte % 4.2 % (19-41); Mean Corp Hgb Conc 29.4 g/dL (32-36); Mean Corpuscular Hgb 22.5 pg (27.0-32.0); Mean Corpuscular Volume 76.4 fL (81-99); Monocyte# 0.58 X10^3/uL; Monocyte% 3.3 % (0-10); NRBC Flagged by Analyzer 0 % (0-5); Neutrophil # 15.81 X10^3/uL (2.7-7.7); POSITIVE MORPHOLOGY YES; Platelet Count 277 K/mm3 (150-450); RBC Distribution Width CV 22.1 % (11.6-14.6); RBC Distribution Width SD 57.4 fl (35.1-43.9); Red Blood Count 4.49 M/mm3 (4.2-5.4); White Blood Count 17.6 K/mm3 (4.4-11.0)
[2025-02-18 15:16] LABS: Differential Indicated SCAN CRITERIA MET
[2025-02-18 15:58] LABS: Ferritin 250 ng/mL (22-378)
[2025-02-18 16:20] LABS: Iron 56 ug/dL (50-170); Iron Binding Capacity,Total 403 ug/dL (250-450); Iron Binding Capacity,Unsat 347 ug/dL (228-428)
[2025-02-18 20:05] LABS: Anisocytosis 2+; Differential Comment SCANNED; Microcytosis 2+; Stomatocyte 2+
== END | disposition home or self-care (01) ==
LOC: LAB 11:55
PROVIDERS: PCP Family Medicine; Referring Provider Family Medicine; Visit Provider Family Medicine
DX: D64.9 Anemia, unspecified (principal)
CPT/HCPCS: 36415; 82728; 83540; 83550; 85025

== ENCOUNTER → 2025-02-28 | Outpatient (CLI) | payer MEDICARE, MEDICAID, SELFPAY ==
[2024-08-09 14:08] VITALS: BMI 41.0
[2025-02-28 11:34] VITALS: PULSE 100; PULSE 102; PULSE 107; PULSE 80; PULSE 84; PULSE 95; PULSE 98; O2SAT 88; O2SAT 91; O2SAT 94; O2SAT 95; O2SAT 96; O2SAT 98
== END | disposition home or self-care (01) ==
LOC: PSN 10:53
PROVIDERS: PCP Family Medicine; Referring Provider Internal Medicine Critical Care Medicine; Visit Provider Internal Medicine Critical Care Medicine
DX: J44.9 Chronic obstructive pulmonary disease, unspecified (principal)
CPT/HCPCS: 94618

== ENCOUNTER 2025-03-11 20:44 | Emergency (ER) | payer MEDICARE, MEDICAID, SELFPAY ==
[2024-08-09 14:08] VITALS: BMI 41.0
[2025-03-11 20:44] VITALS: BP 118/76; PULSE 90; RESP 20; TEMP 36.4; O2SAT 90
[2025-03-11 21:02] VITALS: BMI 43.2
[2025-03-11 21:03] VITALS: O2SAT 95
[2025-03-11 21:46] VITALS: BP 117/70; PULSE 85; RESP 18; TEMP 36.9; O2SAT 97
--- NOTE | 2025-03-11 22:20 | EKG12_ITS ---
Test Reason : SOB Blood Pressure : */* mmHG Vent. Rate : 89 BPM Atrial Rate : 89 BPM P-R Int : 142 ms QRS Dur : 86 ms QT Int : 356 ms P-R-T Axes : 42 20 39 degrees QTcB Int : 433 ms Normal sinus rhythm Normal ECG Confirmed by Denzel Celestin ([id number]), assistant production editor NOAH CHAPA ([id number]) on 03/13/2025 11:20:31 AM Referred By: JAQUAN Confirmed By: Denzel Celestin
--- NOTE | 2025-03-11 22:20 | EKG12_ITS ---
Test Reason : SOB Blood Pressure : */* mmHG Vent. Rate : 89 BPM Atrial Rate : 89 BPM P-R Int : 142 ms QRS Dur : 86 ms QT Int : 356 ms P-R-T Axes : 42 20 39 degrees QTcB Int : 433 ms Normal sinus rhythm Normal ECG Confirmed by Denzel Celestin ([id number]), editor in chief newspaper NOAH CHAPA ([id number]) on 03/13/2025 11:20:31 AM Referred By: JAQUAN Confirmed By: Denzel Celestin
[2025-03-11 22:31] VITALS: PULSE 82; RESP 19; O2SAT 97
[2025-03-11 22:34] LABS: Hematocrit 34.5 % (37-47); Hemoglobin 10.4 g/dL (12.0-15.0); Immature Granulocytes Count 0.160 X10^3/uL (0.0-0.0); Mean Corp Hgb Conc 30.1 g/dL (32-36); Mean Corpuscular Volume 77.4 fL (81-99); Mean Platelet Vol. 8.3 fl (6.2-12.0); NRBC Flagged by Analyzer 0 % (0-5); POSITIVE DIFFERENTIAL YES; POSITIVE MORPHOLOGY YES; Platelet Count 239 K/mm3 (150-450); RBC Distribution Width CV 22.4 % (11.6-14.6); RBC Distribution Width SD 61.7 fl (35.1-43.9); Red Blood Count 4.46 M/mm3 (4.2-5.4); White Blood Count 12.5 K/mm3 (4.4-11.0)
[2025-03-11 22:56] LABS: Prothrombin Time (Protime)PT. 13.1 SECONDS (11.7-14.9)
[2025-03-11 22:57] LABS: Partial Thromboplast Time 32.5 Seconds (24.1-36.2)
[2025-03-11 23:00] VITALS: BP 131/72; PULSE 82; RESP 18; TEMP 36.9; O2SAT 96
[2025-03-11 23:07] LABS: Anion Gap 14 (5-15); BUN 15 mg/dL (4-19); BUN/Creat Ratio 15.4 RATIO (10-20); Calcium,Total 9.8 mg/dL (7.6-11.0); Carbon Dioxide 29.2 mmol/L (21.0-32.0); Chloride 93 mmol/L (98-108); Estimated Creatinine Clearance 56.68 ml/min (50-250); Glucose 137 mg/dL (70-99); Magnesium 1.9 mg/dL (1.5-2.2); Potassium 4.0 mmol/L (3.3-5.1); Pro- Brain NATRIURETIC PEPTIDE 61 pg/mL (<=900)
--- NOTE | 2025-03-11 23:16 | RAD_ITS ---
PROCEDURE: CHEST PA AND LATERAL 03/11/2025 REASON FOR EXAM: DYSPNEA TECHNIQUE: CHEST PA AND LATERAL COMPARISON: 02/04/2025 FINDINGS: Lungs/Pleura: Central pulmonary vascular congestion, and bilateral reticular airspace opacities suggestive of interstitial edema. No sizable pleural effusion. No pneumothorax. Heart/Mediastinum: Mild cardiomegaly. Tortuous and calcified thoracic aorta. Bones/Soft tissues: Mild degenerative changes of the thoracic spine. RAD/Chest PA and Lateral IMPRESSION: Cardiomegaly with vascular congestion and interstitial edema. Reading Location: [id number]
--- NOTE | 2025-03-11 23:16 | RAD_ITS ---
PROCEDURE: CHEST PA AND LATERAL 03/11/2025 REASON FOR EXAM: DYSPNEA TECHNIQUE: CHEST PA AND LATERAL COMPARISON: 02/04/2025 FINDINGS: Lungs/Pleura: Central pulmonary vascular congestion, and bilateral reticular airspace opacities suggestive of interstitial edema. No sizable pleural effusion. No pneumothorax. Heart/Mediastinum: Mild cardiomegaly. Tortuous and calcified thoracic aorta. Bones/Soft tissues: Mild degenerative changes of the thoracic spine. RAD/Chest PA and Lateral IMPRESSION: Cardiomegaly with vascular congestion and interstitial edema. Reading Location: [id number]
[2025-03-11 23:32] LABS: Differential Indicated SCAN CRITERIA MET
[2025-03-11 23:33] LABS: Anisocytosis 3+; Differential Comment SCANNED
[2025-03-11 23:34] LABS: Basophilic Stippling 1+; Microcytosis 2+; Schistocytes RARE
[2025-03-12] VITALS: BP 148/81; PULSE 81; RESP 20; TEMP 36.9; O2SAT 97; O2SAT 98
[2025-03-12 00:21] VITALS: BP 148/81; PULSE 75; RESP 18; TEMP 36.9; O2SAT 99
--- NOTE | 2025-03-12 00:22 | EDS_ITS ---
HPI History of Present Illness Chief Complaint: Shortness of Breath Informant: patient and family Narrative Narrative: Patient is a 69-year-old female with past medical history of CHF and COPD on chronic nasal cannula oxygen. Patient states she has been wearing her oxygen and doing her home medications but despite this she has been having persistent shortness of breath throughout the entire day. She denies any fevers or chills or known sick contact. However with the persistent shortness of breath that does not seem to be improving with her home treatment she presents for evaluation. [facility] Medical History Anemia Emotional problems Chronic hypoxemic respiratory failure Hypertension Right knee DJD Spondylosis, lumbar, with myelopathy Cervicalgia Cholelithiasis Ventral hernia Abnormal biliary HIDA scan Hypothyroidism (acquired) Tobacco use disorder, continuous Mixed obstructive and restrictive ventilatory defect Spinal stenosis of lumbar region at multiple levels Nicotine dependence, cigarettes, in remission PTSD (post-traumatic stress disorder) Chronic respiratory failure with hypoxia Bladder disease History of pain when walking History of rheumatic fever History of ESBL E. coli infection Wears dentures Wears glasses Thyroid disease Walker as ambulation aid Uses wheelchair Gastric reflux Former smoker Dependence on continuous supplemental oxygen Shortness of breath on exertion History of echocardiogram Hypoxia BMI 40.0-44.9, adult Spinal stenosis Encounter for screening for malignant neoplasm of lung in current smoker with 30 pack year history or greater Degenerative lumbar spinal stenosis Oral thrush Cough due to bronchospasm Dyspnea on exertion Arthritis Kidney stones GERD (gastroesophageal reflux disease) Anxiety and depression Home Medications ?Medication ?Instructions ?Recorded ?Last Taken ?Type sertraline 100 mg tablet 200 mg PO DAILY depression 0 10/23/20 03/12/25 09:00 History aripiprazole 20 mg tablet 20 mg PO DAILY mood 01/06/21 02/04/25 History Pulse oximeter #1 ea 02/05/21 Unknown Rx blood pressure monitor (Blood #1 ea 02/05/21 Unknown R x Pressure Kit) walker (Ultra-Light Rollator misc) #1 ea 03/24/21 Unkn own Rx underpads (Bed Underpads) #40 ea 02/16/22 Unknown Rx nebulizer 12/08/22 Unknown History levothyroxine 50 mcg tablet 50 mcg PO DAILY thhyroid # 30 tabs 08/09/23 02/04/25 Rx albuterol sulfate 2.5 mg/3 mL 2.5 mg inhalation Q6H AR N 06/21/24 02/04/25 History (0.083 %) solution for nebulization shortness of breat h or wheezing bupropion HCl 300 mg 24 hr tablet, 300 mg PO DAILY [facility] 06/21/24 02/04/25 History extended release esomeprazole magnesium 40 mg 40 mg PO QDAY reflux 08/2902/04/25 History capsule,delayed release furosemide 20 mg tablet 20 mg PO QDAY diuretic 01/3102/04/25 History lisinopril 20 mg tablet 20 mg PO QDAY blood pressure 01/31/25 02/04/25 History pregabalin 100 mg capsule 100 mg PO TID PRN panic riaz cks 01/31/25 02/04/25 History ondansetron 4 mg disintegrating 4 mg PO BID nausea and vomiting 02/28/25 Unknown History tablet prednisone 20 mg tablet 10 mg PO DAILY Congestion 03/12/25 History albuterol sulfate 90 mcg/actuation inhalation Wheezing /SOB 03/12/25 Unknown History aerosol inhaler azithromycin 250 mg tablet 250 mg PO Antibiotic Unknown History hydroxyzine HCl 25 mg tablet 25 mg PO TID Anxiety 02/26 01/20 Unknown History ipratropium 0.5 mg-albuterol 3 mg 3 ml inhalation 4X/D AY PRN 03/12/25 Unknown Rx (2.5 mg base)/3 mL nebulization Shortness of breath/wh eeze #180 mL soln roflumilast 500 mcg tablet 500 mcg PO COPD 03/12/25 Un known History Allergy/AdvReac Type Severity Reaction Status Date / Time Sulfa (Sulfonamide Allergy Vomiting Verified 03/12/25 12:40 Antibiotics) Family History Mother Diabetes Hypertension Breast cancer Father Heart disease Hypertension Myocardial infarction, Onset Age: 46 Surgical History History of esophagogastroduodenoscopy (EGD) Hx of hernia repair Hx of cholecystectomy History of hand surgery History of hysterectomy History of History of D&C Social History household members: none Smoking Status: Former smoker quit date: 01/03/21 Tobacco: How many years used: 36 alcohol intake: never substance use type: does not use what type of physical activity do you participate in: none ROS ROS ED Constitutional Constitutional ED: Denies chills or fever(s) Eyes Eyes: Denies change in vision ENT ENT ED: Denies rhinorrhea or sore throat Cardiovascular Cardiovascular: Denies chest pain, palpitations or racing heartbeat Respiratory/Chest Respiratory/Chest: Reports cough, dyspnea and dyspnea on exertion Gastrointestinal Gastrointestinal: Denies abdominal pain, diarrhea, nausea or vomiting Genitourinary Genitourinary ED: Denies dysuria Musculoskeletal Musculoskeletal: Denies myalgias Integumentary Denies rash Neurologic Neurologic: Denies headache(s) Psychiatric Psychiatric: Reports anxiety Hematologic/Lymphatic Hematologic/Lymphatic: Denies easy bleeding or easy bruising EXAM Physical Exam Const Vital Signs: 03/11/25 20:44 03/11/25 21:03 03/11/25 21:46 Temperature 97.6 F L 98.5 F Temperature Source Oral Oral Pulse Rate 90 85 Respiratory Rate 20 H 18 Respiratory Effort Labored Respiratory Depth Normal Respiratory Pattern Normal Blood Pressure 118/76 117/70 Blood Pressure Mean 90 85 Pulse Ox 90 97 Oxygen Delivery Method Nasal Cannula Nasal Cannula Nasal Cannula Oxygen Flow Rate (L/min) 4 4 4 03/11/25 22:31 03/11/25 22:31 03/11/25 23:00 Temperature 98.5 F Temperature Source Oral Pulse Rate 82 82 Respiratory Rate 19 H 18 Respiratory Effort Respiratory Depth Respiratory Pattern Normal Blood Pressure 131/72 H Blood Pressure Mean 91 Pulse Ox 97 96 Oxygen Delivery Method Nasal Cannula Nasal Cannula Oxygen Flow Rate (L/min) 4 4 03/12/25 00:00 03/12/25 00:21 Temperature 98.4 F 98.4 F Temperature Source Oral Pulse Rate 81 75 Respiratory Rate 20 H 18 Respiratory Effort Respiratory Depth Respiratory Pattern Blood Pressure 148/81 H 148/81 H Blood Pressure Mean 103 103 Pulse Ox 98 99 Oxygen Delivery Method Nasal Cannula Oxygen Flow Rate (L/min) 4 Positive well nourished, well developed and obese General Appearance ED: well developed; Negative for pallor Nutritional Appearance: obese HEENT HEENT Narrative: Normocephalic atraumatic No tongue or lip swelling no oral lesions no airway edema or compromise; no secondary findings in the posterior pharynx to suggest infection Eyes PERRL and EOMs intact bilaterally General Eye ED: Negative for scleral icterus Neck supple Neck Narrative: Trace JVD is noted No meningeal signs or nuchal rigidity Chest Wall palpation of chest normal Chest Narrative: No bony deformity or crepitance of the chest wall palpated Resp Resp Narrative: Breath sounds are diminished throughout there are diffuse inspiratory and expiratory wheezing as well as rhonchi in the bilateral bases Patient does have mild tachypnea and accessory muscle use Cardio regular rate and regular rhythm Rate: other Other Details: Radial and carotid pulses are equal and symmetric GI normal to inspection, nondistended, normoactive bowel sounds, non-tender, non- distended and no masses GI Narrative: No voluntary guarding or rigidity or pulsatile mass Auscultation: normoactive bowel sounds Palpation: soft Extremity Extremity Narrative: +1-2 pitting edema to the bilateral lower extremities that is equal and symmetric Negative Homans' sign bilaterally Neuro oriented x3, CN's II-XII intact bilaterally and no sensory deficits noted Sensorium / Orientation: alert Motor Exam: strength 5/5 throughout Psych Mood & Affect: anxious Skin no rashes or lesions noted General Skin Exam: Negative for jaundice or pallor MDM MDM MDM Narrative Medical decision making narrative: Patient arrived to the ER with mild respiratory distress as she was tachypneic with accessory muscle use. However she was satting in the low 90s on her normal 4 L of nasal cannula oxygen. With her report of shortness of breath throughout the day not responding to home therapy there is concern that she is having a COPD exacerbation has developed pneumonia or having CHF exacerbation. Secondary to this basic labs were obtained as well as a chest x-ray. Labs revealed no sign of acute blood loss anemia as her hemoglobin is at baseline. There were no signs of acute kidney injury or clinically significant electrolyte abnormality. She does have a history of CHF but her proBNP is 61 going against volume overload, however proBNP is can be falsely low and obese individuals. The chest x-ray did not reveal any type of infiltrate but did show changes consistent with pulmonary edema/vascular congestion. After receiving treatment in the ER the patient did report feeling better and her pulse ox improved to the mid to high 90s. The patient was ambulated in the ER and her pulse ox remained in the mid 90s and she did not feel any worsening shortness of breath with ambulation. I discussed with patient potential elevation to her daily steroids for outpatient therapy versus admission for IV steroids and potential IV diuresis. She states that after the medication she received in the ER her shortness of breath has essentially resolved and is at its baseline. Moreover as she can ambulate without any shortness of breath she does not want to be placed in the hospital. Therefore I will place the patient on a prolonged taper of steroids to help reduce any inflammatory response. She understands that if she continues to worsen despite this new intervention that she should return to the ER for potential admission. History & Record Review Discussion w/independent historian: Patient and Family Lab Data Attestation: I reviewed the patient's lab results. Labs: Laboratory Results - last 24 hr 03/11/25 21:03 WBC 12.5 H RBC 4.46 Hgb 10.4 L Hct 34.5 L MCV 77.4 L MCH 23.3 L MCHC 30.1 L RDW Std Deviation 61.7 H RDW Coeff of Ronny 22.4 H Plt Count 239 MPV 8.3 Immature Gran % (Auto) 1.300 H Neut % (Auto) 92.5 H Lymph % (Auto) 3.3 L [place] % (Auto) 2.6 Eos % (Auto) 0.1 Baso % (Auto) 0.2 Absolute Neuts (auto) 11.6 H Absolute Lymphs (auto) 0.41 L Nucleated RBC % 0 Differential Comment SCANNED Platelet Estimate ADEQUATE Basophilic Stippling 1+ Anisocytosis 3+ Microcytosis 2+ Schistocytes RARE PT 13.1 INR 1.0 APTT 32.5 Sodium 136 Potassium 4.0 Chloride 93 L Carbon Dioxide 29.2 Anion Gap 14 BUN 15 Creatinine 0.97 Estim Creat Clear Calc 56.68 Est GFR (MDRD) Non-Af 62 BUN/Creatinine Ratio 15.4 Glucose 137 H Calcium 9.8 Magnesium 1.9 NT pro BNP II 61 Radiography Diagnostic Testing: Clinical Impression(s) from Imaging Studies Chest X-Ray 03/11/25 23:16 IMPRESSION: Cardiomegaly with vascular congestion and interstitial edema. Reading Location: [facility] Chest x-ray as interpreted by the emergency medicine physician reveals cardiomegaly with interstitial edema without obvious infiltrate or pneumothorax Discharge Plan Triage Chief Complaint: Shortness of Breath ED Provider: Kris Napier Dx/Rx/DC Orders Clinical Impression: Acute exacerbation of chronic obstructive pulmonary disease, CHF exacerbation, Anemia Instructions: COPD: Wheezing and Chest Tightness Prescriptions: New ipratropium-albuterol 0.5 mg-3 mg(2.5 mg base)/3 mL solution for nebulization 3 ml inhalation 4X/DAY PRN (Reason: Shortness of breath/wheeze) Qty: 180 0RF No Action (DME) nebulizer 0 .Route .MEDSUPPLY lisinopril 20 mg tablet 20 mg PO QDAY furosemide 20 mg tablet 20 mg PO QDAY pregabalin 100 mg capsule 100 mg PO TID PRN (Reason: panic attacks ) Patient Comments: Takes as needed for panic attacks; taken about 2 weeks ago esomeprazole magnesium 40 mg capsule,delayed release(DR/EC) 40 mg PO QDAY ondansetron 4 mg tablet,disintegrating 4 mg PO BID Patient Comments: Has been a long time since last taken prednisone 20 mg tablet 10 mg PO DAILY sertraline 100 mg tablet 200 mg PO DAILY aripiprazole 20 mg tablet 20 mg PO DAILY albuterol sulfate 2.5 mg /3 mL (0.083 %) solution for nebulization 2.5 mg inhalation Q6H PRN (Reason: shortness of breath or wheezing) bupropion HCl 300 mg tablet extended release 24 hr 300 mg PO DAILY albuterol sulfate 90 mcg/actuation HFA aerosol inhaler inhalation azithromycin 250 mg tablet 250 mg PO hydroxyzine HCl 25 mg tablet 25 mg PO TID roflumilast 500 mcg tablet 500 mcg PO (DME) blood pressure monitor [Blood Pressure Kit] Kit See Rx Instructions .ROUTE .MEDSUPPLY Qty: 1 0RF Rx Instructions: Check daily and as needed (DME) Pulse oximeter See Rx Instructions .Route .MEDSUPPLY Qty: 1 0RF Rx Instructions: Monitor daily or as needed (DME) Ultra-Light Rollator Misc See Rx Instructions .ROUTE .MEDSUPPLY Qty: 1 0RF Rx Instructions: As directed (DME) underpads [Bed Underpads] Pad See Rx Instructions .Route Qty: 40 6RF Rx Instructions: R32. levothyroxine 50 mcg tablet 50 mcg PO DAILY Qty: 30 2RF Primary Care Provider: Trista,Chalon Referrals: Tre Weston MD [Primary Care Provider] - Activity Restrictions/Additional Instructions: Your workup today showed no obvious signs of heart damage pneumonia or repeat internal bleeding. This indicates you are having a COPD exacerbation. Stop your once daily prednisone and begin taking the taper for improved inflammatory control. Begin using the DuoNeb up to 4 times a day to help with bronchospasm and shortness of breath as well. If you have any further concerns or worsening of symptoms please return to the ER for repeat evaluation Print Language: Nepali Disposition Disposition: Home, Self Care Discharge Date/Time: 03/12/25 00:33
== END 2025-03-12 00:33 | disposition home or self-care (01) ==
PROVIDERS: Emergency Provider Emergency Medicine; PCP Family Medicine; Visit Provider Emergency Medicine
DX: J44.1 Chronic obstructive pulmonary disease with (acute) exacerbation (principal); J96.11 Chronic respiratory failure with hypoxia; I11.0 Hypertensive heart disease with heart failure; I50.9 Heart failure, unspecified; D64.9 Anemia, unspecified; F32.A Depression, unspecified; F41.9 Anxiety disorder, unspecified; Z79.890 Hormone replacement therapy; Z79.899 Other long term (current) drug therapy; Z87.891 Personal history of nicotine dependence
CPT/HCPCS: 71046; 80048; 83735; 83880; 85025; 85610; 85730; 87631; 93005; 94640; A4216; J2405

== ENCOUNTER 2025-03-12 12:38 | Inpatient (IN) | payer MEDICARE, MEDICAID, SELFPAY ==
[2024-08-09 14:08] VITALS: BMI 41.0
[2025-03-12] VITALS (13 sets, daily range): BP systolic 130–156; BP diastolic 70–125; PULSE 66–88; RESP 15–22; TEMP 36.4–37.2; O2SAT 93–97; BMI 43.6; BMI 42.7
[2025-03-12 13:23] LABS: Hematocrit 34.9 % (37-47); Hemoglobin 10.5 g/dL (12.0-15.0); Immature Granulocytes Count 0.150 X10^3/uL (0.0-0.0); Mean Corp Hgb Conc 30.1 g/dL (32-36); Mean Corpuscular Volume 77.4 fL (81-99); Mean Platelet Vol. 8.1 fl (6.2-12.0); NRBC Flagged by Analyzer 0 % (0-5); POSITIVE DIFFERENTIAL YES; POSITIVE MORPHOLOGY YES; Platelet Count 222 K/mm3 (150-450); RBC Distribution Width CV 22.5 % (11.6-14.6); RBC Distribution Width SD 61.8 fl (35.1-43.9); Red Blood Count 4.51 M/mm3 (4.2-5.4); White Blood Count 11.5 K/mm3 (4.4-11.0)
[2025-03-12 13:32] LABS: Differential Indicated SCAN CRITERIA MET
[2025-03-12 13:48] LABS: Anion Gap 13 (5-15); Anisocytosis 1+; BUN 16 mg/dL (4-19); BUN/Creat Ratio 16.5 RATIO (10-20); Calcium,Total 9.8 mg/dL (7.6-11.0); Carbon Dioxide 28.5 mmol/L (21.0-32.0); Chloride 94 mmol/L (98-108); Glucose 222 mg/dL (70-99); Macrocytosis 1+; Polychromasia 1+; Potassium 4.5 mmol/L (3.3-5.1)
--- NOTE | 2025-03-12 14:38 | ED.VIS.DYS ---
HPI History of Present Illness Chief Complaint: Shortness of Breath Informant: patient and friend Narrative Narrative: History of COPD chronic 4 L oxygenation. Presents symptoms cough congestion started yesterday increasing wheezing. States cannot cough things up. Seen yesterday in the ED workup negative sent home earlier this morning on a steroid taper. Did start her first dose this morning. She reports was able to ambulate her oxygen before being discharged. States there was potential plans of keeping her in the hospital however she wanted to go home. She states with her 2 friends who helps her. Since being home has and continued cough still wheezing states burning to the face from sinus congestion. She states with exertion she feels more short of breath. No chest or abdominal pain. She used her nebulizer this morning and took her oral steroids this morning. Prior similar symptoms: Yes PFSH PFSH Medical History Anemia Emotional problems Chronic hypoxemic respiratory failure Hypertension Right knee DJD Spondylosis, lumbar, with myelopathy Cervicalgia Cholelithiasis Ventral hernia Abnormal biliary HIDA scan Hypothyroidism (acquired) Tobacco use disorder, continuous Mixed obstructive and restrictive ventilatory defect Spinal stenosis of lumbar region at multiple levels Nicotine dependence, cigarettes, in remission PTSD (post-traumatic stress disorder) Chronic respiratory failure with hypoxia Bladder disease History of pain when walking History of rheumatic fever History of ESBL E. coli infection Wears dentures Wears glasses Thyroid disease Walker as ambulation aid Uses wheelchair Gastric reflux Former smoker Dependence on continuous supplemental oxygen Shortness of breath on exertion History of echocardiogram Hypoxia BMI 40.0-44.9, adult Spinal stenosis Encounter for screening for malignant neoplasm of lung in current smoker with 30 pack year history or greater Degenerative lumbar spinal stenosis Oral thrush Cough due to bronchospasm Dyspnea on exertion Arthritis Kidney stones GERD (gastroesophageal reflux disease) Anxiety and depression Home Medications ?Medication ?Instructions ?Recorded ?Last Taken ?Type sertraline 100 mg tablet 200 mg PO DAILY depression 10/23/20 02/04/25 History aripiprazole 20 mg tablet 20 mg PO DAILY mood 01/06/21 02/04/25 History Pulse oximeter #1 ea 02/05/21 Unknown Rx blood pressure monitor (Blood #1 ea 02/05/21 Unknown Rx Pressure Kit) walker (Ultra-Light Rollator misc) #1 ea 03/24/21 Unknown Rx underpads (Bed Underpads) #40 ea 02/16/22 Unknown Rx nebulizer 12/08/22 Unknown History levothyroxine 50 mcg tablet 50 mcg PO DAILY thhyroid #30 tabs 08/09/23 02/04/25 Rx albuterol sulfate 2.5 mg/3 mL 2.5 mg inhalation Q6H PRN 06/21/24 02/04/25 History (0.083 %) solution for nebulization shortness of breath or wheezing bupropion HCl 300 mg 24 hr tablet, 300 mg PO DAILY mental health 06/21/24 02/04/25 History extended release esomeprazole magnesium 40 mg 40 mg PO QDAY reflux 09/07/24 02/04/25 History capsule,delayed release furosemide 20 mg tablet 20 mg PO QDAY diuretic 01/31/25 02/04/25 History lisinopril 20 mg tablet 20 mg PO QDAY blood pressure 01/31/25 02/04/25 History pregabalin 100 mg capsule 100 mg PO TID 01/31/25 02/04/25 History ondansetron 4 mg disintegrating 4 mg PO BID PRN 02/28/25 Unknown History tablet prednisone 20 mg tablet 10 mg PO DAILY 03/04/25 Unknown History ipratropium 0.5 mg-albuterol 3 mg 3 ml inhalation 4X/DAY PRN 03/12/25 Unknown Rx (2.5 mg base)/3 mL nebulization Shortness of breath/wheeze #180 mL soln prednisone 10 mg tablet 10 mg PO DAILY #63 tabs 03/12/25 Unknown Rx Allergy/AdvReac Type Severity Reaction Status Date / Time Sulfa (Sulfonamide Allergy Vomiting Verified 03/12/25 12:40 Antibiotics) Family History Mother Diabetes Hypertension Breast cancer Father Heart disease Hypertension Myocardial infarction, Onset Age: 46 Surgical History History of esophagogastroduodenoscopy (EGD) Hx of hernia repair Hx of cholecystectomy History of hand surgery History of hysterectomy History of History of D&C Social History household members: none Smoking Status: Former smoker quit date: 01/03/21 Tobacco: How many years used: 36 alcohol intake: never substance use type: does not use what type of physical activity do you participate in: none ROS ROS ED Constitutional Constitutional ED: Denies chills, fever(s) or sweats ENT ENT ED: Reports other Details: Sinus congestion ; Denies sore throat Cardiovascular Cardiovascular: Denies chest pain, leg edema, palpitations or racing heartbeat Respiratory/Chest Respiratory/Chest: Reports cough and dyspnea; Denies dyspnea on exertion Gastrointestinal Gastrointestinal: Denies abdominal pain, diarrhea, nausea or vomiting Genitourinary Genitourinary ED: Denies dysuria, hematuria or urinary frequency Musculoskeletal Musculoskeletal: Denies back pain, extremity pain or neck pain Integumentary Denies rash or wounds Neurologic Neurologic: Denies headache(s), paresthesias or weakness EXAM Physical Exam Const Vital Signs: 03/12/25 12:39 03/12/25 13:38 03/12/25 14:19 Temperature 97.8 F 98.8 F Temperature Source Temporal Temporal Pulse Rate 88 72 Respiratory Rate 22 H 17 Respiratory Effort Respiratory Pattern Blood Pressure 156/125 H 150/87 H Blood Pressure Mean 135 108 Pulse Ox 94 94 95 Oxygen Delivery Method Nasal Cannula Nasal Cannula Nasal Cannula Oxygen Flow Rate (L/min) 4 4 4 03/12/25 14:20 03/12/25 14:25 03/12/25 14:33 Temperature Temperature Source Pulse Rate 66 Respiratory Rate 15 20 H Respiratory Effort Short of Breath Labored Respiratory Pattern Tachypnea Blood Pressure Blood Pressure Mean Pulse Ox 94 Oxygen Delivery Method Nasal Cannula Nasal Cannula Oxygen Flow Rate (L/min) 4 4 03/12/25 14:33 Temperature Temperature Source Pulse Rate Respiratory Rate Respiratory Effort Respiratory Pattern Blood Pressure Blood Pressure Mean Pulse Ox 96 Oxygen Delivery Method Nasal Cannula Oxygen Flow Rate (L/min) 3 Positive well nourished and well developed Constitutional Narrative: 4 L nasal cannula no respiratory distress General Appearance ED: well developed and NAD HEENT Reports moist mucous membranes normocephalic and atraumatic Eyes General Eye ED: Yes normal appearance of both eyes Neck full ROM Chest Wall Chest: Negative for tenderness Resp Resp Narrative: Coarse breath sounds with wheezing Effort and Inspection: symmetric chest movement; Negative for respiratory distress Cardio regular rate, regular rhythm and no murmurs Peripheral Pulses: pulses 2+ throughout GI normal to inspection, nondistended, normoactive bowel sounds and non-tender Palpation: Negative for guarding or rebound tenderness present Extremity normal to inspection General Extremety ED: Negative for edema or tenderness General Extremity: Negative for edema Neuro oriented x3 and no sensory deficits noted Sensorium / Orientation: awake and alert Skin no rashes or lesions noted and no wounds MDM MDM MDM Narrative Medical decision making narrative: Interventions / MDM: Differential diagnosis: COPD exacerbation, failed outpatient therapy Diagnosis considered but do not suspect: N/A My EKG interpretation: N/A Imaging independently reviewed and interpreted by myself: N/A External documents reviewed: Reviewed workup from late last night negative workup chest x-ray slight vascular congestion however BNP was negative. White count was 12. Discharged with prednisone taper and refill of her aerosol treatments. Test considered but not ordered:N/A ED course: Vital stable, she is on her nasal cannula oxygenation she has wheezing on exam. Return for concerns of increasing dyspnea. Nursing protocol read check labs white count 11.5 creatinine 0.98. I ordered for additional aerosols due to wheezing. She has had her steroid dosing in the ED and took her morning dose. I will discuss with hospitalist service for admission. I discussed with Dr. Conde for admission. He requests patient be given dose of Lasix with the best congestion on x-ray overnight. Ordered for respiratory panel. Patient admitted to PCU. Re-evaluation: stable Disposition discussed with patient/family/significant other: Patient Case discussed with consulting clinician: Hospitalist This note was generated with [employer] dictation software. It may contain incorrect words, spelling, and punctuation that were not noted in checking the note before signing. Lab Data Attestation: I reviewed the patient's lab results. Labs: Laboratory Results - last 24 hr 03/12/25 13:09 WBC 11.5 H RBC 4.51 Hgb 10.5 L Hct 34.9 L MCV 77.4 L MCH 23.3 L MCHC 30.1 L RDW Std Deviation 61.8 H RDW Coeff of Ronny 22.5 H Plt Count 222 MPV 8.1 Immature Gran % (Auto) 1.300 H Neut % (Auto) 94.7 H Lymph % (Auto) 2.4 L [place] % (Auto) 1.5 Eos % (Auto) 0.0 Baso % (Auto) 0.1 Absolute Neuts (auto) 10.9 H Absolute Lymphs (auto) 0.28 L Nucleated RBC % 0 Platelet Estimate A Polychromasia 1+ Anisocytosis 1+ Macrocytosis 1+ Sodium 135 Potassium 4.5 Chloride 94 L Carbon Dioxide 28.5 Anion Gap 13 BUN 16 Creatinine 0.98 Est GFR (MDRD) Non-Af 62 BUN/Creatinine Ratio 16.5 Glucose 222 H Hemoglobin A1c 6.1 H Calcium 9.8 Procalcitonin 0.15 H Discharge Plan Disposition Disposition: Acute Care Hospital [facility] Discharge Date/Time: 03/12/25 16:17
--- NOTE | 2025-03-12 14:46 | HP.PCM.HOS_ITS ---
[facility] - General General Date of Admission: 03/12/25 Date of Service: 03/12/25 Chief Complaint: Shortness of breath with exertion with wheezing and congestion HPI Narrative MAX TOM, is a 69 F who presented to [facility] ED on 03/12/2025 with worsening shortness of breath with exertion with wheezing and congestion. Medical history is significant for COPD with chronic respiratory failure on 4 L, class III obesity, iron deficiency anemia and recent upper GI bleed. Patient was hospitalized here in early January and found to have acute on chronic anemia. EGD showed 3 angiodysplastic lesions that were cauterized, and hemoglobin stabilized after this. Was given 1 dose of IV iron at that time. Patient had been doing well until a few days ago when she developed worsening shortness of breath with exertion with wheezing and congestion. She was seen in the ED late yesterday evening for this. Chest x-ray showed cardiomegaly with vascular congestion and interstitial edema. However, BNP was normal and CBC and BMP were benign. Patient was given a breathing treatment and did maintain appropriate oxygen saturation with exertion, so she was discharged home with DuoNebs and a prednisone taper. However, she felt more short of breath with exertion with no improvement so she came back to the ED today for further evaluation. CBC and BMP are essentially unchanged. ED physician noted the patient was quite wheezy on exam even after breathing treatment, so hospitalist was contacted for admission. I saw the patient at bedside in the ED. Patient was fatigued appearing but otherwise laying back fairly comfortably in bed, conversing normally, in no acute distress. She does report ongoing wheezing and some shortness of breath at rest. Denies any lower extremity swelling. Denies any fevers or chills. Denies any chest pain. No other acute concerns currently. Will be admitted for further management. [facility] Medical History Anemia Emotional problems Chronic hypoxemic respiratory failure Hypertension Right knee DJD Spondylosis, lumbar, with myelopathy Cervicalgia Cholelithiasis Ventral hernia Abnormal biliary HIDA scan Hypothyroidism (acquired) Tobacco use disorder, continuous Mixed obstructive and restrictive ventilatory defect Spinal stenosis of lumbar region at multiple levels Nicotine dependence, cigarettes, in remission PTSD (post-traumatic stress disorder) Chronic respiratory failure with hypoxia Bladder disease History of pain when walking History of rheumatic fever History of ESBL E. coli infection Wears dentures Wears glasses Thyroid disease Walker as ambulation aid Uses wheelchair Gastric reflux Former smoker Dependence on continuous supplemental oxygen Shortness of breath on exertion History of echocardiogram Hypoxia BMI 40.0-44.9, adult Spinal stenosis Encounter for screening for malignant neoplasm of lung in current smoker with 30 pack year history or greater Degenerative lumbar spinal stenosis Oral thrush Cough due to bronchospasm Dyspnea on exertion Arthritis Kidney stones GERD (gastroesophageal reflux disease) Anxiety and depression Home Medications ?Medication ?Instructions ?Recorded ?Last Taken ?Type sertraline 100 mg tablet 200 mg PO DAILY depression 0 10/23/20 02/04/25 History aripiprazole 20 mg tablet 20 mg PO DAILY mood 01/06/21 02/04/25 History Pulse oximeter #1 ea 02/05/21 Unknown Rx blood pressure monitor (Blood #1 ea 02/05/21 Unknown R x Pressure Kit) walker (Ultra-Light Rollator misc) #1 ea 03/24/21 Unkn own Rx underpads (Bed Underpads) #40 ea 02/16/22 Unknown Rx nebulizer 12/08/22 Unknown History levothyroxine 50 mcg tablet 50 mcg PO DAILY thhyroid # 30 tabs 08/09/23 02/04/25 Rx albuterol sulfate 2.5 mg/3 mL 2.5 mg inhalation Q6H LA N 06/21/24 02/04/25 History (0.083 %) solution for nebulization shortness of breat h or wheezing bupropion HCl 300 mg 24 hr tablet, 300 mg PO DAILY Move In History 06/21/24 02/04/25 History extended release esomeprazole magnesium 40 mg 40 mg PO QDAY reflux 08/2902/04/25 History capsule,delayed release furosemide 20 mg tablet 20 mg PO QDAY diuretic 01/3102/04/25 History lisinopril 20 mg tablet 20 mg PO QDAY blood pressure 01/31/25 02/04/25 History pregabalin 100 mg capsule 100 mg PO TID 01/31/2502/04 History ondansetron 4 mg disintegrating 4 mg PO BID PRN Unknown History tablet prednisone 20 mg tablet 10 mg PO DAILY 03/04/25 Unkn own History ipratropium 0.5 mg-albuterol 3 mg 3 ml inhalation 4X/D AY PRN 03/12/25 Unknown Rx (2.5 mg base)/3 mL nebulization Shortness of breath/wh eeze #180 mL soln prednisone 10 mg tablet 10 mg PO DAILY #63 tabs 02/26 01/20 Unknown Rx Allergy/AdvReac Type Severity Reaction Status Date / Time Sulfa (Sulfonamide Allergy Vomiting Verified 03/12/25 12:40 Antibiotics) Family History Mother Diabetes Hypertension Breast cancer Father Heart disease Hypertension Myocardial infarction, Onset Age: 46 Surgical History History of esophagogastroduodenoscopy (EGD) Hx of hernia repair Hx of cholecystectomy History of hand surgery History of hysterectomy History of History of D&C Social History household members: none Smoking Status: Former smoker quit date: 01/03/21 Tobacco: How many years used: 36 alcohol intake: never substance use type: does not use what type of physical activity do you participate in: none ROS Constitutional Constitutional: Reports fatigue; Denies chills, fever(s) or weakness Eyes Eyes: Denies change in vision Cardiovascular Cardiovascular: Reports dyspnea on exertion; Denies chest pain, edema, lightheadedness or orthopnea Respiratory/Chest Respiratory/Chest: Reports cough, shortness of breath at rest, shortness of breath with exertion and wheezing; Denies productive cough Gastrointestinal Gastrointestinal: Denies abdominal pain Musculoskeletal Musculoskeletal: Denies arthralgias or myalgias Vital Signs Vital Signs Vital Signs: 03/12/25 12:39 03/12/25 13:38 03/12/25 14:19 Temperature 97.8 F 98.8 F Temperature Source Temporal Temporal Pulse Rate 88 72 Respiratory Rate 22 H 17 Respiratory Effort Respiratory Pattern Blood Pressure 156/125 H 150/87 H Blood Pressure Mean 135 108 Pulse Ox 94 94 95 Oxygen Delivery Method Nasal Cannula Nasal Cannula Nasal Cannula Oxygen Flow Rate (L/min) 4 4 4 03/12/25 14:20 03/12/25 14:25 03/12/25 14:33 Temperature Temperature Source Pulse Rate 66 Respiratory Rate 15 20 H Respiratory Effort Short of Breath Labored Respiratory Pattern Tachypnea Blood Pressure Blood Pressure Mean Pulse Ox 94 Oxygen Delivery Method Nasal Cannula Nasal Cannula Oxygen Flow Rate (L/min) 4 4 03/12/25 14:33 Temperature Temperature Source Pulse Rate Respiratory Rate Respiratory Effort Respiratory Pattern Blood Pressure Blood Pressure Mean Pulse Ox 96 Oxygen Delivery Method Nasal Cannula Oxygen Flow Rate (L/min) 3 Weight Weight: 101.287 kg Body Mass Index (BMI) 43.6 Physical Exam Const alert, oriented x3 and no apparent distress Constitutional Narrative: Elderly female, class III obesity, fatigued and chronically ill-appearing, otherwise sitting back fairly comfortably in bed, conversing normally, in no acute distress. General Appearance: cooperative and comfortable HEENT normocephalic, head/scalp atraumatic, hearing grossly normal bilaterally, nasal mucous membranes and turbinates normal and moist oral mucous membranes Eyes PERRL, EOMs intact bilaterally and conjunctivae normal Neck full ROM Chest inspection of chest normal Resp normal respiratory effort and no use of accessory muscles Resp Narrative: Breathing comfortably on home 4 L nasal cannula at rest. Diffuse end expiratory wheezing noted bilaterally throughout, with mild crackles noted in mid lung zones. Cardio regular rate, regular rhythm, no murmurs and peripheral pulses 2+ throughout GI normal to inspection, nondistended, normoactive bowel sounds, soft to palpation, non-tender and non-distended Back/Spine normal ROM Extremity normal to inspection, full ROM and no pedal edema Skin no rashes or lesions noted Psych mental status grossly normal Results Lab / Micro Data 03/12/25 13:09 03/12/25 13:09 Labs: Laboratory Results - last 24 hr 03/12/25 13:09: WBC 11.5 H, RBC 4.51, Hgb 10.5 L, Hct 34.9 L, MCV 77.4 L, MCH 23.3 L, MCHC 30.1 L, RDW Std Deviation 61.8 H, RDW Coeff of Ronny 22.5 H, Plt Count 222, MPV 8.1, Immature Gran % (Auto) 1.300 H, Neut % (Auto) 94.7 H, Lymph % (Auto) 2.4 L, [place] % (Auto) 1.5, Eos % (Auto) 0.0, Baso % (Auto) 0.1, Absolute Neuts (auto) 10.9 H, Absolute Lymphs (auto) 0.28 L, Nucleated RBC % 0, Platelet Estimate A, Polychromasia 1+, Anisocytosis 1+, Macrocytosis 1+, Sodium 135, Potassium 4.5, Chloride 94 L, Carbon Dioxide 28.5, Anion Gap 13, BUN 16, Creatinine 0.98, Est GFR (MDRD) Non-Af 62, BUN/Creatinine Ratio 16.5, Glucose 222 H, Calcium 9.8 Assessment & Plan Assessment/Plan (1) Acute exacerbation of chronic obstructive pulmonary disease: (2) CHF exacerbation: PLAN: Plan Patient is a 69-year-old female who presented [facility] ED on 03/12/2025 with worsening shortness of breath with exertion with wheezing and congestion. 1. Acute COPD exacerbation in setting of chronic hypoxic respiratory failure ? Admit under inpatient status to PCU. Follows with outpatient pulmonology, is on 4 L at home. Stable at rest on 4 L in the ED but saturations dropping with exertion. Chest x-ray with cardiomegaly with vascular congestion and interstitial edema concerning for CHF as below. COVID/flu/RSV negative on 03/11. Full respiratory PCR panel sent. Procalcitonin ordered. Will treat with scheduled DuoNebs and prednisone 40 mg daily for now. 2. Suspected acute CHF exacerbation ? Patient reporting shortness of breath with exertion and chest x-ray with vascular congestion and interstitial edema as above. BNP normal but this notably is underestimated in heart failure. Last echo in 2021 showed EF 70%, no diastolic dysfunction, no other concerning findings. Repeat echo ordered. Given 1 dose of IV Lasix 40 mg in the ED. Monitor daily BMP and urine output. Will hold on further IV Lasix until echo has resulted. Chronic medical conditions: ? Class III obesity: BMI 43 on admit. Complicates hospital course, care and prognosis. ? Chronic iron deficiency anemia with recent upper GI bleed: Hemoglobin 10.5 on admit, at baseline. Had recent GI bleed with 3 angiodysplastic lesions treated with heater probe on EGD on 02/05. Continue home PPI twice daily. ? Anxiety/depression/PTSD: Stable. Continue home aripiprazole, bupropion and sertraline. ? Neuropathy: Continue home pregabalin. ? Hypothyroidism: Continue home Synthroid. DVT prophylaxis: Lovenox twice daily CODE STATUS: DNR CCA, DNI Expected disposition: Home, TBD Total clinical time spent by myself addressing the patient's medical issues, reviewing all the data, and collaborating with patient's care team: 75 minutes. Charges/Coding Visit Charges Inpatient E&M: 84345 Init Hosp L3
--- NOTE | 2025-03-12 14:52 | ECHOCS_ITS ---
Reason For Study Reason For Study: CONGESTIVE HEART FAILURE Procedure This was a 2D Doppler, Color Flow transthoracic echocardiogram. The study was technically difficult. Contrast injection was performed. Patient was scanned sitting upright due to shortness of breath. Exam performed portable in patient room. Left Ventricle Normal size and thickness. The LV ejection fraction is 50 %. Normal diastology for age. Right Ventricle Normal right ventricle. Atria The left and right atria are normal. Mitral Valve Trivial mitral valve insufficiency. Tricuspid Valve Normal tricuspid valve. Aortic Valve The aortic valve is not well visualized in the short axis view. Trivial aortic valve regurgitation. Valve not well- visualized however mean peak gradient 10 mmHg which would suggest mild aortic valve stenosis. Pulmonic Valve The pulmonic valve is not well visualized. Great Vessels Normal sized aortic root. Pericardium/Pleural No pericardial effusion. Medication Diluted definity 1ml given slow IV push to enhance endocardial definition. MMode/2D Measurements & Calculations RVDd: 3.9 cm LVOT diam: 2.2 cm asc Aorta Diam: 3.2 cm LVOT area: 3.6 cm2 LAV(MOD-bp): 26.2 ml LVAd ap4: 22.1 cm2 LVAd ap2: 23.1 cm2 LAV(MOD-bp) Indexed: 13.4 ml/m2 LVLd ap4: 6.9 cm LVLd ap2: 7.4 cm LAV(MOD-sp2): 27.4 ml EDV(MOD-sp4): 57.8 ml EDV(MOD-sp2): 59.6 ml LAV(MOD-sp4): 25.3 ml EDV(sp4-el): 60.4 ml EDV(sp2-el): 60.8 ml LVAs ap4: 15.8 cm2 LVAs ap2: 16.1 cm2 LVLs ap4: 6.2 cm LVLs ap2: 6.7 cm ESV(MOD-sp4): 32.8 ml ESV(MOD-sp2): 32.2 ml ESV(sp4-el): 34.0 ml ESV(sp2-el): 33.0 ml EF(MOD-sp4): 43.3 % EF(MOD-sp2): 45.9 % EF(sp4-el): 43.7 % SV(MOD-sp4): 25.1 ml SV(MOD-sp2): 27.4 ml SV(sp4-el): 26.4 ml SI(MOD-sp4): 12.8 ml/m2 SI(MOD-sp2): 14.0 ml/m2 Ao sinus diam: 3.[address] [place]: 2.7 cm LA A4 area: 12.7 cm2 LA dimension(2D): 3.1 cm RA A4 area: 10.9 cm2 TAPSE: 2.1 cm Time Measurements MV dec time: 0.17 sec Doppler Measurements & Calculations MV E max josé miguel: 76.0 cm/sec Lat Peak E' José Miguel: 12.4 cm/sec Med Peak E' José Miguel: 6.1 cm/sec MV A max josé miguel: 99.4 cm/sec E/E' lat: 6.1 E/E' med: 12.5 MV E/A: 0.77 Ao V2 max: 199.1 cm/sec LV V1 max: 111.7 cm/sec MV dec slope: 453.4 cm/sec2 Ao max P.9 mmHg LV V1 max P.0 mmHg Ao V2 mean: 155.6 cm/sec LV V1 mean P.9 mmHg Ao mean P.3 mmHg LV V1 mean: 82.1 cm/sec Ao V2 VTI: 26.9 cm LV V1 VTI: 16.6 cm AV (velocity ratio): 0.62 DAVE(I,D): 2.3 cm2 DAVE(V,D): 2.0 cm2 SV(LVOT): 60.6 ml PA V2 max: 114.1 cm/sec ECHO/Echo Complete W/ Contrast Interpretation Summary Technically difficult study with suboptimal images. The LV ejection fraction is 50 %. Trivial aortic valve regurgitation. Valve not well-visualized however mean peak gradient 10 mmHg which would suggest mild aortic valve stenosis. Ordering Physician: Chidi Conde Performed By: Evelyn Fraire RDCS
[2025-03-12 16:39] LABS: Procalcitonin 0.15 ng/mL (<=0.10)
[2025-03-13] VITALS (15 sets, daily range): BP systolic 129–151; BP diastolic 65–89; PULSE 72–104; RESP 18–26; TEMP 36.7–37.6; O2SAT 88–96; BMI 42.8
[2025-03-13 05:51] LABS: Hematocrit 35.3 % (37-47); Hemoglobin 10.8 g/dL (12.0-15.0); Mean Corp Hgb Conc 30.6 g/dL (32-36); Mean Corpuscular Volume 76.7 fL (81-99); Mean Platelet Vol. 8.3 fl (6.2-12.0); POSITIVE MORPHOLOGY YES; Platelet Count 243 K/mm3 (150-450); RBC Distribution Width CV 22.5 % (11.6-14.6); RBC Distribution Width SD 61.3 fl (35.1-43.9); Red Blood Count 4.60 M/mm3 (4.2-5.4); White Blood Count 13.5 K/mm3 (4.4-11.0)
[2025-03-13 06:24] LABS: Anion Gap 12 (5-15); BUN 23 mg/dL (4-19); BUN/Creat Ratio 22.7 RATIO (10-20); Calcium,Total 9.7 mg/dL (7.6-11.0); Carbon Dioxide 30.4 mmol/L (21.0-32.0); Chloride 94 mmol/L (98-108); Estimated Creatinine Clearance 53.59 ml/min (50-250); Glucose 132 mg/dL (70-99); Potassium 4.1 mmol/L (3.3-5.1)
[2025-03-13 06:38] LABS: Scan Indicated on CBC? Y/N YES- FLAGS NOTED
--- NOTE | 2025-03-13 08:52 | PN.HOSP_ITS ---
Reason for Visit Chief Complaint: Shortness of breath with exertion with wheezing and congestion Subjective Subjective Patient is a 69-year-old lady with past medical history significant for for chronic hypoxic respiratory failure secondary to COPD who presented to the emergency department with worsening shortness of breath with exertion with wheezing and congestion. Objective Data Objective Data Vital Signs: Vital Signs Temp Pulse Resp BP Pulse Ox O2 Del Method O2 Flow Rate 98.1 F 85 20 H 135/77 H 96 Nasal Cannula 4 03/13/25 06:00 03/13/25 07:31 03/13/25 07:31 03/13/25 06:00 03/13/25 07:32 03/13/25 07:32 03/13/25 07:32 Oxygen Flow Rate (L/min) 4 Oxygen Delivery Method Nasal Cannula Weight: 99.5 kg Body Mass Index (BMI) 42.8 Intake & Output: Intake and Output for Last 24 Hours 03/11/25 03/12/25 03/13/25 23:59 23:59 23:59 Intake Total 240 / 480 600 / 600 Output Total 1999 / 1999 Balance 240 / -170 -1400 / -1400 Lab / Micro Data 03/13/25 05:07 03/13/25 05:07 Labs: Laboratory Results - last 24 hr 03/12/25 13:09: WBC 11.5 H, RBC 4.51, Hgb 10.5 L, Hct 34.9 L, MCV 77.4 L, MCH 23.3 L, MCHC 30.1 L, RDW Std Deviation 61.8 H, RDW Coeff of Ronny 22.5 H, Plt Count 222, MPV 8.1, Immature Gran % (Auto) 1.300 H, Neut % (Auto) 94.7 H, Lymph % (Auto) 2.4 L, [place] % (Auto) 1.5, Eos % (Auto) 0.0, Baso % (Auto) 0.1, Absolute Neuts (auto) 10.9 H, Absolute Lymphs (auto) 0.28 L, Nucleated RBC % 0, Platelet Estimate A, Polychromasia 1+, Anisocytosis 1+, Macrocytosis 1+, Sodium 135, Potassium 4.5, Chloride 94 L, Carbon Dioxide 28.5, Anion Gap 13, BUN 16, Creatinine 0.98, Est GFR (MDRD) Non-Af 62, BUN/Creatinine Ratio 16.5, Glucose 222 H, Hemoglobin A1c 6.1 H, Calcium 9.8, Procalcitonin 0.15 H 03/13/25 05:07: WBC 13.5 H, RBC 4.60, Hgb 10.8 L, Hct 35.3 L, MCV 76.7 L, MCH 23.5 L, MCHC 30.6 L, RDW Std Deviation 61.3 H, RDW Coeff of Ronny 22.5 H, Plt Count 243, MPV 8.3, Sodium 135, Potassium 4.1, Chloride 94 L, Carbon Dioxide 30.4, Anion Gap 12, BUN 23 H, Creatinine 1.02, Estim Creat Clear Calc 53.59, Est GFR (MDRD) Non-Af 59 L, BUN/Creatinine Ratio 22.7 H, Glucose 132 H, Calcium 9.7 Micro: Microbiology 03/12/25 17:07 Mucosa - Nasopharyngeal Respiratory Panel (PCR) - Final Human [place] Physical Exam Narrative GENERAL: cooperative appears dyspneic at rest HEENT: Atraumatic; normocephalic EYES; Anicteric, Normal Conjunctiva NECK; supple, normal thyroid, RESPIRATORY: Diminished to auscultation CARDIOVASCULAR: Regular S1 S2, GI: soft, normoactive bowel sounds, : No Renal angle tenderness; EXTREMITIES: Trace bipedal edema, no clubbing, MUSCULOSKELETAL: no muscle wasting NEURO: Awake; no lateralizing signs. SKIN: No Rash PSYCH; Flat affect Assessment & Plan Assessment/Plan (1) Acute exacerbation of chronic obstructive pulmonary disease: (2) CHF exacerbation: PLAN: Plan Patient is a 69-year-old lady with past medical history significant for for chronic hypoxic respiratory failure secondary to COPD who presented to the emergency department with worsening shortness of breath with exertion with wheezing and congestion. 1. Acute dyspnea ? Superimposed on chronic hypoxic respiratory failure suspected to be secondary to combination of COPD with acute exacerbation as well as acute congestive heart failure 2. COPD with acute exacerbation. Stated by patient he millimeter pneumo virus infection ? Patient started on bronchodilator treatment, systemic steroid as well as antibiotic therapy. Patient placed on oxygen titrated to keep saturation greater than 90. 3. Suspected acute congestive heart failure ? Patient presented with dyspnea with exertion and was found to have vascular congestion on chest x-ray. Patient BNP was not elevated which is expected given the her BMI of 42. Patient was started on furosemide. Admitted to a monitored bed ordered a 2D echo serial cardiac enzymes strict input and output low-sodium diet and daily weights 4. Human metapneumovirus upper respiratory tract infection ? Presenting etiology for patient's COPD exacerbation plan is to treat symptomatically in addition to treatment of her underlying COPD exacerbation 5. Hypertension ? Blood pressure controlled, home medications continued with dose adjustment as needed 6. Hypothyroidism ? Patient is on levothyroxine home dose continued 7. GERD ? On PPI 8. Chronic iron deficiency anemia with recent upper GI bleed: Hemoglobin 10.5 on admit, at baseline. Had recent GI bleed with 3 angiodysplastic lesions treated with heater probe on EGD on 02/05. Continue home PPI twice daily. Subsequently monitoring H&H with plans to transfuse if hemoglobin falls below 7 or patient is deemed to be symptomatic 9. Anxiety/depression/PTSD - Stable. Continue home aripiprazole, bupropion and sertraline. 10. Peripheral neuropathy ? Continue home pregabalin. 11. Class III obesity with BMI of 43 ? Complicating care weight loss advised 12. Chronic hypoxic respiratory failure ? Secondary to COPD patient is on home oxygen 4 L at baseline 13 DVT prophylaxis -Lovenox twice daily Time spent in the patient's overall evaluation,decision-making process, review of diagnostic data, adjustment of management, discussion with other providers, nursing nursing and ancillary staff involved in patient's care documentation, 52 Minutes Charges/Coding Visit Charges Inpatient E&M: 11358 [facility] Hosp L3
[2025-03-13] MEDS: buPROPion (XL) 300 MG TABLET.XL PO (09:26)
--- NOTE | 2025-03-13 11:20 | CASEMGMT ---
SYDNI VALDIVIA Face to Face with patient for initial transition planning/care coordination assessment. RN SHEA introduced self and role at [facility]. Patient lying in bed, alert and oriented. Patient willing to participate in assessment and is able to answer all questions appropriately. Care providers, pharmacy, and demographics verified. Strata: 2 PCP: Trista Specialists: Chris Obrien Pharmacy:[facility] Insurance: [employer] Prescription Benefit: yes Living Will/HPOA: yes, friend Kayleen Maguire LNOK: friend, Kayleen Living Arrangements: Patient lives with Kayleen in 2 story home with bed and bath on the first floor, no steps to enter. Patient is independent at home. Transportation: Kayleen DME/HHC: Patient has shower chair, hospital bed, grab bars, rollator, wheelchair, nebuilzer, pulse ox, and home oxygen through [employer]. No previous HHC or SNF. Patient is active with [facility]. Patient wishes to discharge home. Will monitor progress with therapy for recommendation. Will monitor for increase in home oxygen. Patient states she has no further needs or concerns at this time. CM to follow for discharge planning needs that may arise. Disposition Plan: Patient to discharge home with family support and follow-up plans in place. Will monitor for increase in home oxygen and possible HHC. Esperanza SENIOR, RN, CM
--- NOTE | 2025-03-13 15:23 | RAD_ITS ---
EXAM: XR Chest, 1 View CLINICAL INDICATION: DYSPNEA TECHNIQUE: Frontal view of the chest. COMPARISON: No relevant prior studies available. FINDINGS: LUNGS AND PLEURAL SPACES: Pulmonary congestion and edema. Pneumonia cannot be excluded. Bibasilar atelectasis or pneumonia. No pneumothorax. HEART: Unremarkable. No cardiomegaly. MEDIASTINUM: Unremarkable. Normal mediastinal contour. BONES/JOINTS: Unremarkable. No acute fracture. RAD/Chest 1 View (Portable) IMPRESSION: 1. Pulmonary congestion and edema. Pneumonia cannot be excluded. 2. Bibasilar atelectasis or pneumonia. Reading Location: [facility]
[2025-03-13 16:06] LABS: Base Excess 12 mmol/L (-2 to +2); FI02 4.0; PO2 65 mmHG (75-100); SITE R Radial; SO2 93 % (95-99)
[2025-03-13] MEDS: levoFLOXacin IV 750 MG/150 ML BAG 100 MG IV (17:03)
[2025-03-13] MEDS: 0.9% Saline Lock 10 ML Syringe IV ×2 (17:03→20:38)
[2025-03-14] VITALS (14 sets, daily range): BP systolic 122–141; BP diastolic 74–88; PULSE 82–103; RESP 17–24; TEMP 36.6–36.8; O2SAT 92–96; BMI 42.4
[2025-03-14 06:20] LABS: Hematocrit 37.2 % (37-47); Hemoglobin 11.7 g/dL (12.0-15.0); Immature Granulocytes Count 0.210 X10^3/uL (0.0-0.0); Mean Corp Hgb Conc 31.5 g/dL (32-36); Mean Corpuscular Volume 75.0 fL (81-99); Mean Platelet Vol. 8.4 fl (6.2-12.0); NRBC Flagged by Analyzer 0.2 % (0-5); POSITIVE MORPHOLOGY YES; Platelet Count 270 K/mm3 (150-450); RBC Distribution Width CV 22.4 % (11.6-14.6); RBC Distribution Width SD 58.8 fl (35.1-43.9); Red Blood Count 4.96 M/mm3 (4.2-5.4); White Blood Count 12.1 K/mm3 (4.4-11.0)
[2025-03-14 06:30] LABS: Differential Indicated SCAN CRITERIA MET
[2025-03-14 06:54] LABS: Anisocytosis 2+; Differential Comment SCANNED
[2025-03-14 06:59] LABS: AST(SGOT) 67 U/L (<=31); Alanine Aminotransfer ALT/SGPT 71 U/L (<=34); Albumin, Serum 4.2 g/dL (3.4-4.8); Alkaline Phosphatase 153 U/L (35-104); Anion Gap 17 (5-15); BUN 35 mg/dL (4-19); BUN/Creat Ratio 22.8 RATIO (10-20); Bilirubin, Direct 0.10 mg/dL (0.00-0.30); Calcium,Total 10.2 mg/dL (7.6-11.0); Carbon Dioxide 30.3 mmol/L (21.0-32.0); Chloride 89 mmol/L (98-108); Cholesterol 180 mg/dL (<=200); Estimated Creatinine Clearance 35.77 ml/min (50-250); Globulin 3.6 g/dL (2.2-4.2); Glucose 157 mg/dL (70-99); Low Density Lipoprotein Calc. 59 mg/dL; Magnesium 1.8 mg/dL (1.5-2.2); Potassium 4.1 mmol/L (3.3-5.1); Triglycerides 274 mg/dL; Very Low Density Lipoprotein 55 mg/dL (5-40); cholesterol:hdl ratio screen 2.73
[2025-03-14] MEDS: buPROPion (XL) 300 MG TABLET.XL PO (09:24)
--- NOTE | 2025-03-14 09:32 | PCM.PN.HOSP ---
Reason for Visit Chief Complaint: Shortness of breath with exertion with wheezing and congestion Subjective Subjective Patient went into acute respiratory distress the day prior. Repeat checks x-ray ordered showed focal vascular congestion did increase patient Lasix dose. Also increased patient's steroid dose and added Levaquin. Objective Data Objective Data Vital Signs: Vital Signs Temp Pulse Resp BP Pulse Ox O2 Del Method O2 Flow Rate 98.3 F 100 22 H 127/76 H 93 Nasal Cannula 4 03/14/25 08:00 03/14/25 08:00 03/14/25 08:00 03/14/25 08:00 03/14/25 08:00 03/14/25 08:00 03/14/25 08:00 Oxygen Flow Rate (L/min) 4 Oxygen Delivery Method Nasal Cannula Weight: 98.6 kg Body Mass Index (BMI) 42.4 Intake & Output: Intake and Output for Last 24 Hours 03/12/25 03/13/25 03/14/25 23:59 23:59 23:59 Intake Total 240 / 480 1100 / 1100 Output Total 3300 / 3300 550 / 550 Balance 240 / -170 -2200 / -2200 -550 / -550 Lab / Micro Data 03/14/25 05:29 03/14/25 05:29 Labs: Laboratory Results - last 24 hr 03/13/25 12:10: POC Glucose 142 H 03/13/25 20:28: POC Glucose 167 H 03/14/25 05:29: WBC 12.1 H, RBC 4.96, Hgb 11.7 L, Hct 37.2, MCV 75.0 L, MCH 23.6 L, MCHC 31.5 L, RDW Std Deviation 58.8 H, RDW Coeff of Ronny 22.4 H, Plt Count 270, MPV 8.4, Immature Gran % (Auto) 1.700 H, Neut % (Auto) 88.9 H, Lymph % (Auto) 5.1 L, [place] % (Auto) 4.1, Eos % (Auto) 0.0, Baso % (Auto) 0.2, Absolute Neuts (auto) 10.7 H, Absolute Lymphs (auto) 0.62 L, Nucleated RBC % 0.2, Differential Comment SCANNED, Anisocytosis 2+, Sodium 136, Potassium 4.1, Chloride 89 L, Carbon Dioxide 30.3, Anion Gap 17 H, BUN 35 H, Creatinine 1.52 H, Estim Creat Clear Calc 35.77 L, Est GFR (MDRD) Non-Af 36 L, BUN/Creatinine Ratio 22.8 H, Glucose 157 H, Calcium 10.2, Phosphorus 4.7 H, Magnesium 1.8, Total Bilirubin 0.23, Direct Bilirubin 0.10, AST 67 H, ALT 71 H, Alkaline Phosphatase 153 H, Total Protein 7.7, Albumin 4.2, Globulin 3.6, Triglycerides 274 H, Cholesterol 180, LDL Cholesterol, Calc 59, VLDL Cholesterol 55 H, HDL Cholesterol 66, Cholesterol/HDL Ratio 2.73 Micro: Microbiology 03/12/25 17:07 Mucosa - Nasopharyngeal Respiratory Panel (PCR) - Final Human Aurora ABG Data ABG results: ABG 03/13/25 16:03 Specimen Type ART Sample Site R Radial pH 7.45 Bicarbonate Actual 36.3 H Total CO2 38 Base Excess 12 H O2 Saturation 93 L O2 % 4.0 ABG pCO2 52.2 H ABG pO2 65 L O2 Delivery Device Cannula Vent Mode Not entered Radiography Diagnostic Testing: Radiology Impression Echocardiogram 03/12/25 14:52 Interpretation Summary Technically difficult study with suboptimal images. The LV ejection fraction is 50 %. Trivial aortic valve regurgitation. Valve not well-visualized however mean peak gradient 10 mmHg which would suggest mild aortic valve stenosis. Ordering Physician: Chidi Conde Performed By: Evelyn Fraire, CS Chest X-Ray 03/13/25 15:23 IMPRESSION: 1. Pulmonary congestion and edema. Pneumonia cannot be excluded. 2. Bibasilar atelectasis or pneumonia. Reading Location: [facility] Physical Exam Narrative GENERAL: cooperative appears dyspneic at rest HEENT: Atraumatic; normocephalic EYES; Anicteric, Normal Conjunctiva NECK; supple, normal thyroid, RESPIRATORY: Diminished to auscultation CARDIOVASCULAR: Regular S1 S2, GI: soft, normoactive bowel sounds, : No Renal angle tenderness; EXTREMITIES: Trace bipedal edema, no clubbing, MUSCULOSKELETAL: no muscle wasting NEURO: Awake; no lateralizing signs. SKIN: No Rash PSYCH; Flat affect Const alert, oriented x3 and no apparent distress Constitutional Narrative: Elderly female, class III obesity, fatigued and chronically ill-appearing, otherwise sitting back fairly comfortably in bed, conversing normally, in no acute distress. General Appearance: cooperative and comfortable HEENT normocephalic, head/scalp atraumatic, hearing grossly normal bilaterally, nasal mucous membranes and turbinates normal and moist oral mucous membranes Eyes PERRL, EOMs intact bilaterally and conjunctivae normal Neck full ROM Chest inspection of chest normal Resp normal respiratory effort and no use of accessory muscles Resp Narrative: Breathing comfortably on home 4 L nasal cannula at rest. Diffuse end expiratory wheezing noted bilaterally throughout, with mild crackles noted in mid lung zones. Cardio regular rate, regular rhythm, no murmurs and peripheral pulses 2+ throughout GI normal to inspection, nondistended, normoactive bowel sounds, soft to palpation, non-tender and non-distended Back/Spine normal ROM Extremity normal to inspection, full ROM and no pedal edema Skin no rashes or lesions noted Psych mental status grossly normal Assessment & Plan Assessment/Plan (1) Acute exacerbation of chronic obstructive pulmonary disease: (2) CHF exacerbation: PLAN: Plan Patient is a 69-year-old lady with past medical history significant for for chronic hypoxic respiratory failure secondary to COPD who presented to the emergency department with worsening shortness of breath with exertion with wheezing and congestion. 1. Acute dyspnea ? Superimposed on chronic hypoxic respiratory failure suspected to be secondary to combination of COPD with acute exacerbation as well as acute congestive heart failure 2. COPD with acute exacerbation. Stated by patient he millimeter pneumo virus infection ? Patient started on bronchodilator treatment, systemic steroid as well as antibiotic therapy. Patient placed on oxygen titrated to keep saturation greater than 90. 3. Acute congestive heart failure with preserved ejection ? Patient presented with dyspnea with exertion and was found to have vascular congestion on chest x-ray. Patient BNP was not elevated which is expected given the her BMI of 42. Patient was started on furosemide. Admitted to a monitored bed ordered a 2D echo serial cardiac enzymes strict input and output low-sodium diet and daily weights ? Patient 2D echo demonstrated EF of 50% with trivial aortic valve regurgitation 4. Human metapneumovirus upper respiratory tract infection ? Presenting etiology for patient's COPD exacerbation plan is to treat symptomatically in addition to treatment of her underlying COPD exacerbation 5. Acute kidney injury ? Secondary to aggressive diuresis following patient respiratory distress did decrease Lasix dose repeat BMP ordered for a.m. 6. Hypothyroidism ? Patient is on levothyroxine home dose continued 7. GERD ? On PPI 8. Chronic iron deficiency anemia with recent upper GI bleed: Hemoglobin 10.5 on admit, at baseline. Had recent GI bleed with 3 angiodysplastic lesions treated with heater probe on EGD on 02/05. Continue home PPI twice daily. Subsequently monitoring H&H with plans to transfuse if hemoglobin falls below 7 or patient is deemed to be symptomatic 9. Anxiety/depression/PTSD - Stable. Continue home aripiprazole, bupropion and sertraline. 10. Peripheral neuropathy ? Continue home pregabalin. 11. Class III obesity with BMI of 43 ? Complicating care weight loss advised 12. Chronic hypoxic respiratory failure ? Secondary to COPD patient is on home oxygen 4 L at baseline 13. Hypertension ? Blood pressure controlled, home medications continued with dose adjustment as needed 14. DVT prophylaxis -Lovenox twice daily Time spent in the patient's overall evaluation,decision-making process, review of diagnostic data, adjustment of management, discussion with other providers, nursing nursing and ancillary staff involved in patient's care documentation, 50 Minutes Charges/Coding Visit Charges Inpatient E&M: 27109 [facility] Hosp L3
[2025-03-14] MEDS: levoFLOXacin IV 750 MG/150 ML BAG 100 MG IV (10:45)
[2025-03-14] MEDS: MELATONIN 3 MG TABLET PO (20:32)
[2025-03-15] VITALS (13 sets, daily range): BP systolic 114–143; BP diastolic 65–80; PULSE 80–102; RESP 15–24; TEMP 35.4–37.1; O2SAT 93–97; BMI 42.3
[2025-03-15] MEDS: 0.9% Saline Lock 10 ML Syringe IV (05:45)
[2025-03-15 06:23] LABS: Hematocrit 36.8 % (37-47); Hemoglobin 11.5 g/dL (12.0-15.0); Immature Granulocytes Count 0.220 X10^3/uL (0.0-0.0); Mean Corp Hgb Conc 31.3 g/dL (32-36); Mean Corpuscular Volume 74.5 fL (81-99); Mean Platelet Vol. 8.3 fl (6.2-12.0); NRBC Flagged by Analyzer 0 % (0-5); POSITIVE MORPHOLOGY YES; Platelet Count 286 K/mm3 (150-450); RBC Distribution Width CV 22.5 % (11.6-14.6); RBC Distribution Width SD 58.2 fl (35.1-43.9); Red Blood Count 4.94 M/mm3 (4.2-5.4); White Blood Count 14.0 K/mm3 (4.4-11.0)
[2025-03-15 06:36] LABS: Differential Indicated SCAN CRITERIA MET
[2025-03-15 06:53] LABS: Anion Gap 18 (5-15); BUN 54 mg/dL (4-19); BUN/Creat Ratio 26.7 RATIO (10-20); Calcium,Total 9.8 mg/dL (7.6-11.0); Carbon Dioxide 26.4 mmol/L (21.0-32.0); Chloride 88 mmol/L (98-108); Estimated Creatinine Clearance 27.01 ml/min (50-250); Glucose 166 mg/dL (70-99); Potassium 3.9 mmol/L (3.3-5.1)
[2025-03-15 07:28] LABS: Anisocytosis 1+
[2025-03-15] MEDS: buPROPion (XL) 300 MG TABLET.XL PO (10:05)
--- NOTE | 2025-03-15 10:42 | PCM.PN.HOSP ---
Reason for Visit Chief Complaint: Shortness of breath with exertion with wheezing and congestion Subjective Subjective Patient creatinine up to 2.0. Discontinue diuretic therapy. Also de-escalated patient's systemic steroid from IV Solu-Medrol to p.o. prednisone Objective Data Objective Data Vital Signs: Vital Signs Temp Pulse Resp BP Pulse Ox O2 Del Method O2 Flow Rate 98.7 F 88 18 118/80 93 Nasal Cannula 4 03/15/25 09:54 03/15/25 09:54 03/15/25 09:54 03/15/25 09:54 03/15/25 09:54 03/15/25 09:54 03/15/25 09:54 Oxygen Flow Rate (L/min) 4 Oxygen Delivery Method Nasal Cannula Weight: 98.4 kg Body Mass Index (BMI) 42.3 Intake & Output: Intake and Output for Last 24 Hours 03/13/25 03/14/25 03/15/25 23:59 23:59 23:59 Intake Total 1100 / 1100 720 / 720 120 / 120 Output Total 3300 / 3300 2000 / 2000 130 / 130 Balance -2200 / -2200 -1280 / -1280 -10 / -10 Lab / Micro Data 03/15/25 05:39 03/15/25 05:39 Labs: Laboratory Results - last 24 hr 03/14/25 11:44: POC Glucose 151 H 03/14/25 20:31: POC Glucose 169 H 03/15/25 05:39: WBC 14.0 H, RBC 4.94, Hgb 11.5 L, Hct 36.8 L, MCV 74.5 L, MCH 23.3 L, MCHC 31.3 L, RDW Std Deviation 58.2 H, RDW Coeff of Ronny 22.5 H, Plt Count 286, MPV 8.3, Immature Gran % (Auto) 1.600 H, Neut % (Auto) 84.7 H, Lymph % (Auto) 6.7 L, [place] % (Auto) 6.8, Eos % (Auto) 0.0, Baso % (Auto) 0.2, Absolute Neuts (auto) 11.8 H, Absolute Lymphs (auto) 0.94, Nucleated RBC % 0, Anisocytosis 1+, Sodium 133, Potassium 3.9, Chloride 88 L, Carbon Dioxide 26.4, Anion Gap 18 H, BUN 54 H, Creatinine 2.01 H, Estim Creat Clear Calc 27.01 L, Est GFR (MDRD) Non-Af 26 L, BUN/Creatinine Ratio 26.7 H, Glucose 166 H, Calcium 9.8 03/15/25 06:36: POC Glucose 153 H Micro: Microbiology 03/12/25 17:07 Mucosa - Nasopharyngeal Respiratory Panel (PCR) - Final Human [place] Physical Exam Narrative GENERAL: cooperative HEENT: Atraumatic; normocephalic EYES; Anicteric, Normal Conjunctiva NECK; supple, normal thyroid, RESPIRATORY: Diminished to auscultation CARDIOVASCULAR: Regular S1 S2, GI: soft, normoactive bowel sounds, : No Renal angle tenderness; EXTREMITIES: Trace bipedal edema, no clubbing, MUSCULOSKELETAL: no muscle wasting NEURO: Awake; no lateralizing signs. SKIN: No Rash PSYCH; Flat affect Assessment & Plan Assessment/Plan (1) Acute exacerbation of chronic obstructive pulmonary disease: (2) CHF exacerbation: PLAN: Plan Patient is a 69-year-old lady with past medical history significant for for chronic hypoxic respiratory failure secondary to COPD who presented to the emergency department with worsening shortness of breath with exertion with wheezing and congestion. 1. Acute dyspnea ? Superimposed on chronic hypoxic respiratory failure suspected to be secondary to combination of COPD with acute exacerbation as well as acute congestive heart failure 2. COPD with acute exacerbation. Stated by patient he millimeter pneumo virus infection ? Patient started on bronchodilator treatment, systemic steroid as well as antibiotic therapy. Patient placed on oxygen titrated to keep saturation greater than 90. ? 03/15/2025; patient had been placed on systemic steroid 2 days prior given worsening symptoms de-escalated and started patient on p.o. prednisone started today 3. Acute congestive heart failure with preserved ejection ? Patient presented with dyspnea with exertion and was found to have vascular congestion on chest x-ray. Patient BNP was not elevated which is expected given the her BMI of 42. Patient was started on furosemide. Admitted to a monitored bed ordered a 2D echo serial cardiac enzymes strict input and output low-sodium diet and daily weights ? Patient 2D echo demonstrated EF of 50% with trivial aortic valve regurgitation ? 03/15/2025; discontinued IV diuretic therapy given worsening kidney 4. Human metapneumovirus upper respiratory tract infection ? Presenting etiology for patient's COPD exacerbation plan is to treat symptomatically in addition to treatment of her underlying COPD exacerbation 5. Acute kidney injury ? Secondary to aggressive diuresis following patient respiratory distress did decrease Lasix dose repeat BMP ordered for a.m. ? 03/15/2025; patient kidney function continues to worsen discontinue diuretic therapy started patient on gentle IV fluid repeat BMP ordered for a.m. 6. Hypothyroidism ? Patient is on levothyroxine home dose continued 7. GERD ? On PPI 8. Chronic iron deficiency anemia with recent upper GI bleed: Hemoglobin 10.5 on admit, at baseline. Had recent GI bleed with 3 angiodysplastic lesions treated with heater probe on EGD on 02/05. Continue home PPI twice daily. Subsequently monitoring H&H with plans to transfuse if hemoglobin falls below 7 or patient is deemed to be symptomatic 9. Anxiety/depression/PTSD - Stable. Continue home aripiprazole, bupropion and sertraline. 10. Peripheral neuropathy ? Continue home pregabalin. 11. Class III obesity with BMI of 43 ? Complicating care weight loss advised 12. Chronic hypoxic respiratory failure ? Secondary to COPD patient is on home oxygen 4 L at baseline 13. Hypertension ? Blood pressure controlled, home medications continued with dose adjustment as needed 14. DVT prophylaxis -Lovenox twice daily Time spent in the patient's overall evaluation,decision-making process, review of diagnostic data, adjustment of management, discussion with other providers, nursing nursing and ancillary staff involved in patient's care documentation, 38 Minutes Charges/Coding Visit Charges Inpatient E&M: 03155 [facility] Hosp L2
[2025-03-15] MEDS: 0.9% Normal Saline (1000mL) 1,000 ML 100 ML IV ×2 (12:30→22:02)
--- NOTE | 2025-03-15 13:11 | CASEMGMT ---
Addendum entered by Denis Andres 03/15/25 16:17: Pt states Kayleen can bring in her home O2 to go home on @ dc. Addendum entered by Denis Andres 03/15/25 16:07: Pt made aware [facility] able to accept her. Addendum entered by Denis Andres 03/15/25 14:20: Laly Amado CM, called for update on pt. Update provided. Addendum entered by Denis Andres 03/15/25 14:04: Pt states her top 3 C preferences are: Any[facility] dc commercial escrow assistant, made aware and to send referral. Addendum entered by Denis Andres 03/15/25 13:42: Pt made aware [facility] not in-network w/her insurance. Pt given HHC list that was prepared by silvina Calhoun commercial escrow assistant. Pt to review and made aware to pick top 3 preferences. Addendum entered by Denis Andres 03/15/25 13:31: Call received back from Lora @ [facility]. They are not in-network w/pt's insurance. Original Note: SYDNI VALDIVIA note: RN SHEA to room. Introduced self and role. Discussed discharge planning. Questions answered. Pt would like HHC and verifies she is homebound. She states [facility] is [facility] preference & declines wanting list of other HHC options unless [facility] unable to accept her. Call placed to [facility] and referral made. Awaiting response. Jacquelyn SENIOR RN CM
--- NOTE | 2025-03-15 13:34 | CASEMGMT ---
Discharge Planning A list of?HH providers including quality and resource use data and consistent with the patient's preferred geographic region, medical needs, and insurance network was created in [employer] Guide.? This list was provided to the RN SHEA. Unique Marquez, Discharge Planning Asst.
--- NOTE | 2025-03-15 15:11 | CASEMGMT ---
Discharge Planning HH referral sent to [facility] with acceptance. RN CM updated. Unique Marquez DC Planning Asst.
[2025-03-15] MEDS: MELATONIN 3 MG TABLET PO (20:45)
[2025-03-16 04:00] VITALS: BP 145/86; PULSE 83; RESP 18; TEMP 35.7; O2SAT 95
[2025-03-16 05:25] VITALS: PULSE 70; RESP 18
[2025-03-16] MEDS: Albuterol 2.5 MG/3 ML VIAL.NEB. INHALATION (05:25)
[2025-03-16 06:00] VITALS: BMI 43.1
[2025-03-16 06:56] LABS: Hematocrit 33.2 % (37-47); Hemoglobin 10.3 g/dL (12.0-15.0); Immature Granulocytes Count 0.200 X10^3/uL (0.0-0.0); Mean Corp Hgb Conc 31.0 g/dL (32-36); Mean Corpuscular Volume 75.3 fL (81-99); Mean Platelet Vol. 8.4 fl (6.2-12.0); NRBC Flagged by Analyzer 0 % (0-5); POSITIVE MORPHOLOGY YES; Platelet Count 253 K/mm3 (150-450); RBC Distribution Width CV 22.0 % (11.6-14.6); RBC Distribution Width SD 58.8 fl (35.1-43.9); Red Blood Count 4.41 M/mm3 (4.2-5.4); White Blood Count 13.5 K/mm3 (4.4-11.0)
[2025-03-16 07:04] LABS: Differential Indicated SCAN CRITERIA MET
[2025-03-16 07:51] LABS: Anion Gap 14 (5-15); BUN 49 mg/dL (4-19); BUN/Creat Ratio 34.0 RATIO (10-20); Calcium,Total 9.3 mg/dL (7.6-11.0); Carbon Dioxide 24.2 mmol/L (21.0-32.0); Chloride 96 mmol/L (98-108); Estimated Creatinine Clearance 38.09 ml/min (50-250); Glucose 135 mg/dL (70-99); Potassium 4.1 mmol/L (3.3-5.1)
[2025-03-16 08:09] LABS: Anisocytosis 2+
[2025-03-16] MEDS: 0.9% Normal Saline (1000mL) 1,000 ML 100 ML IV (08:45)
[2025-03-16 10:25] VITALS: O2SAT 94
[2025-03-16 10:52] VITALS: PULSE 78; RESP 18; O2SAT 93
[2025-03-16 10:57] VITALS: BP 143/69; PULSE 77; RESP 18; TEMP 36.2; O2SAT 100
[2025-03-16] MEDS: levoFLOXacin IV 750 MG/150 ML BAG 100 MG IV (11:01)
[2025-03-16] MEDS: buPROPion (XL) 300 MG TABLET.XL PO (11:02)
--- NOTE | 2025-03-16 12:00 | PCM.DC.SUM ---
Providers Date of Admission: 03/12/25 Date of Discharge: 03/16/25 Primary Care Physician: Tre Weston MD Reason For Visit: COPD AND CHF EXACERBATION Diagnosis Discharge Diagnosis (1) Acute exacerbation of chronic obstructive pulmonary disease: Status: Chronic Code(s): J44.1 - Chronic obstructive pulmonary disease with (acute) exacerbation (2) CHF exacerbation: Status: Chronic Code(s): I50.9 - Heart failure, unspecified Plan Patient is a 69-year-old lady with past medical history significant for for chronic hypoxic respiratory failure secondary to COPD who presented to the emergency department with worsening shortness of breath with exertion with wheezing and congestion. 1. Acute dyspnea ? Superimposed on chronic hypoxic respiratory failure suspected to be secondary to combination of COPD with acute exacerbation as well as acute congestive heart failure 2. COPD with acute exacerbation. Stated by patient he millimeter pneumo virus infection ? Patient started on bronchodilator treatment, systemic steroid as well as antibiotic therapy. Patient placed on oxygen titrated to keep saturation greater than 90. ? 03/15/2025; patient had been placed on systemic steroid 2 days prior given worsening symptoms de-escalated and started patient on p.o. prednisone started today ? Patient was discharged home on her previous home regimen including azithromycin to 50 mg daily, prednisone 10 mg daily as well as her bronchodilator treatment 3. Acute congestive heart failure with preserved ejection ? Patient presented with dyspnea with exertion and was found to have vascular congestion on chest x-ray. Patient BNP was not elevated which is expected given the her BMI of 42. Patient was started on furosemide. Admitted to a monitored bed ordered a 2D echo serial cardiac enzymes strict input and output low-sodium diet and daily weights ? Patient 2D echo demonstrated EF of 50% with trivial aortic valve regurgitation ? 03/15/2025; discontinued IV diuretic therapy given worsening kidney 4. Human metapneumovirus upper respiratory tract infection ? Presenting etiology for patient's COPD exacerbation plan is to treat symptomatically in addition to treatment of her underlying COPD exacerbation 5. Acute kidney injury ? Secondary to aggressive diuresis following patient respiratory distress did decrease Lasix dose repeat BMP ordered for a.m. ? 03/15/2025; patient kidney function continues to worsen discontinue diuretic therapy started patient on gentle IV fluid repeat BMP ordered for a.m. ? 03/16/2025; patient kidney function did improvePrior to discharge. Was 2.01 on 718 and was 1.44 on 719. Plan is for patient to have repeat BMP to be performed as outpatient within the week by PCP 6. Hypothyroidism ? Patient is on levothyroxine home dose continued 7. GERD ? On PPI 8. Chronic iron deficiency anemia with recent upper GI bleed: Hemoglobin 10.5 on admit, at baseline. Had recent GI bleed with 3 angiodysplastic lesions treated with heater probe on EGD on 02/05. Continue home PPI twice daily. Subsequently monitoring H&H with plans to transfuse if hemoglobin falls below 7 or patient is deemed to be symptomatic 9. Anxiety/depression/PTSD - Stable. Continue home aripiprazole, bupropion and sertraline. 10. Peripheral neuropathy ? Continue home pregabalin. 11. Class III obesity with BMI of 43 ? Complicating care weight loss advised 12. Chronic hypoxic respiratory failure ? Secondary to COPD patient is on home oxygen 4 L at baseline 13. Hypertension ? Blood pressure controlled, home medications continued with dose adjustment as needed 14. DVT prophylaxis -Lovenox twice daily Time spent in the patient's overall evaluation,decision-making process, review of diagnostic data, adjustment of management, discussion with other providers, nursing nursing and ancillary staff involved in patient's care documentation, 38 Minutes Medications at Discharge Home Medications sertraline 100 mg tablet 200 mg PO DAILY depression 10/23/20 aripiprazole 20 mg tablet 20 mg PO DAILY mood 01/06/21 Pulse oximeter #1 ea 02/05/21 blood pressure monitor (Blood Pressure Kit) #1 ea 02/05/21 walker (Ultra-Light Rollator misc) #1 ea 03/24/21 underpads (Bed Underpads) #40 ea 02/16/22 nebulizer 12/08/22 levothyroxine 50 mcg tablet 50 mcg PO DAILY thhyroid #30 tabs 08/09/23 albuterol sulfate 2.5 mg/3 mL (0.083 %) solution for nebulization 2.5 mg inhalation Q6H PRN shortness of breath or wheezing 06/21/24 bupropion HCl 300 mg 24 hr tablet, extended release 300 mg PO DAILY mental health 06/21/24 esomeprazole magnesium 40 mg capsule,delayed release 40 mg PO QDAY reflux 09/07/24 furosemide 20 mg tablet 20 mg PO QDAY diuretic 01/31/25 lisinopril 20 mg tablet 20 mg PO QDAY blood pressure 01/31/25 pregabalin 100 mg capsule 100 mg PO TID PRN panic attacks 01/31/25 ondansetron 4 mg disintegrating tablet 4 mg PO BID nausea and vomiting 02/28/25 prednisone 20 mg tablet 10 mg PO DAILY Congestion 03/04/25 albuterol sulfate 90 mcg/actuation aerosol inhaler inhalation Wheezing/SOB 03/12/25 hydroxyzine HCl 25 mg tablet 25 mg PO TID Anxiety 03/12/25 ipratropium 0.5 mg-albuterol 3 mg (2.5 mg base)/3 mL nebulization soln 3 ml inhalation 4X/DAY PRN Shortness of breath/wheeze #180 mL 03/12/25 roflumilast 500 mcg tablet 500 mcg PO .QD COPD 03/12/25 azithromycin 250 mg tablet 250 mg PO DAILY Antibiotic 7 days #7 tabs 03/16/25 Physical Exam Narrative GENERAL: cooperative HEENT: Atraumatic; normocephalic EYES; Anicteric, Normal Conjunctiva NECK; supple, normal thyroid, RESPIRATORY: Diminished to auscultation CARDIOVASCULAR: Regular S1 S2, GI: soft, normoactive bowel sounds, : No Renal angle tenderness; EXTREMITIES: Trace bipedal edema, no clubbing, MUSCULOSKELETAL: no muscle wasting NEURO: Awake; no lateralizing signs. SKIN: No Rash PSYCH; Flat affect Weight / BMI Weight Weight: 100.1 kg Body Mass Index (BMI) 43.1 ABG / Lab / Microbiology Data 03/16/25 05:58 03/16/25 05:58 Laboratory: Laboratory Results - last 24 hr 03/15/25 12:25: POC Glucose 158 H 03/15/25 16:52: POC Glucose 172 H 03/16/25 05:58: WBC 13.5 H, RBC 4.41, Hgb 10.3 L, Hct 33.2 L, MCV 75.3 L, MCH 23.4 L, MCHC 31.0 L, RDW Std Deviation 58.8 H, RDW Coeff of Ronny 22.0 H, Plt Count 253, MPV 8.4, Immature Gran % (Auto) 1.500 H, Neut % (Auto) 86.7 H, Lymph % (Auto) 6.1 L, [place] % (Auto) 5.6, Eos % (Auto) 0.0, Baso % (Auto) 0.1, Absolute Neuts (auto) 11.7 H, Absolute Lymphs (auto) 0.82 L, Nucleated RBC % 0, Platelet Estimate A, Anisocytosis 2+, Ovalocytes 1+, Sodium 134, Potassium 4.1, Chloride 96 L, Carbon Dioxide 24.2, Anion Gap 14, BUN 49 H, Creatinine 1.44 H, Estim Creat Clear Calc 38.09 L, Est GFR (MDRD) Non-Af 39 L, BUN/Creatinine Ratio 34.0 H, Glucose 135 H, Calcium 9.3 Microbiology: Microbiology 03/12/25 17:07 Mucosa - Nasopharyngeal Respiratory Panel (PCR) - Final Human [place] D/C Instructions Discharge Activity: Return to Normal Activity Call your doctor if you observe: Fever of 101 or Higher, Shortness of breath, Fainting spells and Chest pain DC O2, CPAP, BIPAP Needs Home O2 Discharge instructions: Yes Type of respiratory needs?: Oxygen Oxygen frequency: Continuous Continuous oxygen liters per minute: 3 DC home with Oxygen: Yes Home O2 MD Review: I have reviewed the oxygen testing, and the patient qualifies for home oxygen equipment and portability. The patient is mobile in the home and the community. Meaningful Use Info Meaningful Use Meaningful Use Diagnoses (Choose all that apply): CHF CHF MADIE/ARB ordered at discharge?: Yes Documented LVEF (%): 50 Discharge Plan Admission Admit Date/Time: 03/12/25 14:48 Attending Provider: Saad Cobb Primary Care Provider: Tre Weston Consulting Providers: Chidi Conde Discharge Orders/Prescriptions Prescriptions: Continued (DME) nebulizer 0 .Route .MEDSUPPLY lisinopril 20 mg tablet 20 mg PO QDAY furosemide 20 mg tablet 20 mg PO QDAY pregabalin 100 mg capsule 100 mg PO TID PRN (Reason: panic attacks ) Patient Comments: Takes as needed for panic attacks; taken about 2 weeks ago esomeprazole magnesium 40 mg capsule,delayed release(DR/EC) 40 mg PO QDAY ondansetron 4 mg tablet,disintegrating 4 mg PO BID Patient Comments: Has been a long time since last taken prednisone 20 mg tablet 10 mg PO DAILY sertraline 100 mg tablet 200 mg PO DAILY aripiprazole 20 mg tablet 20 mg PO DAILY albuterol sulfate 2.5 mg /3 mL (0.083 %) solution for nebulization 2.5 mg inhalation Q6H PRN (Reason: shortness of breath or wheezing) bupropion HCl 300 mg tablet extended release 24 hr 300 mg PO DAILY ipratropium-albuterol 0.5 mg-3 mg(2.5 mg base)/3 mL solution for nebulization 3 ml inhalation 4X/DAY PRN (Reason: Shortness of breath/wheeze) Qty: 180 0RF albuterol sulfate 90 mcg/actuation HFA aerosol inhaler inhalation hydroxyzine HCl 25 mg tablet 25 mg PO TID roflumilast 500 mcg tablet 500 mcg PO .QD (DME) blood pressure monitor [Blood Pressure Kit] Kit See Rx Instructions .ROUTE .MEDSUPPLY Qty: 1 0RF Rx Instructions: Check daily and as needed (DME) Pulse oximeter See Rx Instructions .Route .MEDSUPPLY Qty: 1 0RF Rx Instructions: Monitor daily or as needed (DME) Ultra-Light Rollator Misc See Rx Instructions .ROUTE .MEDSUPPLY Qty: 1 0RF Rx Instructions: As directed (DME) underpads [Bed Underpads] Pad See Rx Instructions .Route Qty: 40 6RF Rx Instructions: R32. levothyroxine 50 mcg tablet 50 mcg PO DAILY Qty: 30 2RF Changed azithromycin 250 mg tablet 250 mg PO DAILY 7 Days Qty: 7 0RF Other Ambulatory Orders: Basic Metabolic Profile (BMP) (Routine) Timeframe: [id number] Facility: [facility] - Location: Laboratory Ordered By: Dr. Saad Cobb Referrals / Follow Up: Tre Weston MD [Primary Care Provider] - Within 2 Weeks Disposition Disposition (needs filled in before D/C Order can be placed): Home, Self Care Charges/Coding Visit Charges Inpatient E&M: 33710 Disch Hosp >30min
[2025-03-16 13:45] VITALS: O2SAT 93; O2SAT 95
== END 2025-03-16 14:28 | disposition home or self-care (01) | DRG 291 ==
LOC: ED 15:06 → PCU 15:52
PROVIDERS: Admitting Provider Hospitalist; Emergency Provider Emergency Medicine; PCP Family Medicine; Visit Provider Internal Medicine
DX: I11.0 Hypertensive heart disease with heart failure (principal); I50.31 Acute diastolic (congestive) heart failure; J44.1 Chronic obstructive pulmonary disease with (acute) exacerbation; Z68.41 Body mass index [BMI] 40.0-44.9, adult; J96.11 Chronic respiratory failure with hypoxia; N17.9 Acute kidney failure, unspecified; Z66 Do not resuscitate; Z99.81 Dependence on supplemental oxygen; E03.9 Hypothyroidism, unspecified; D50.9 Iron deficiency anemia, unspecified; F32.A Depression, unspecified; G62.9 Polyneuropathy, unspecified; F41.9 Anxiety disorder, unspecified; K21.9 Gastro-esophageal reflux disease without esophagitis; J06.9 Acute upper respiratory infection, unspecified; B97.81 Human metapneumovirus as the cause of diseases classified elsewhere; E66.813 Obesity, class 3; F43.10 Post-traumatic stress disorder, unspecified; Z79.890 Hormone replacement therapy; Z79.52 Long term (current) use of systemic steroids; Z87.891 Personal history of nicotine dependence
CPT/HCPCS: 36415; 36600; 71045; 71046; 80048; 80061; 80076; 82803; 82962; 83036; 83735; 83880; 84100; 84145; 85025; 85027; 85610; 85730; 87631; 87633; 93005; 93306; 94640; 94668; 94760; 96374; 96375; 97116; 97162; 97166; 97530; 97535; 99283; Q9957; A4216; C8929; J1938; J2405

== ENCOUNTER 2025-03-20 15:06 | Emergency (ER) | payer MEDICARE, MEDICAID, SELFPAY ==
[2025-03-13 11:57] VITALS: BMI 41.0
[2025-03-20 15:06] VITALS: BP 126/65; PULSE 97; RESP 18; TEMP 36.8; O2SAT 88
--- NOTE | 2025-03-20 15:53 | EX.ED.DYSGE1 ---
HPI History of Present Illness Chief Complaint: GI Bleed [facility] Medical History Anemia Emotional problems Chronic hypoxemic respiratory failure Hypertension Right knee DJD Spondylosis, lumbar, with myelopathy Cervicalgia Cholelithiasis Ventral hernia Abnormal biliary HIDA scan Hypothyroidism (acquired) Tobacco use disorder, continuous Mixed obstructive and restrictive ventilatory defect Spinal stenosis of lumbar region at multiple levels Nicotine dependence, cigarettes, in remission PTSD (post-traumatic stress disorder) Chronic respiratory failure with hypoxia Bladder disease History of pain when walking History of rheumatic fever History of ESBL E. coli infection Wears dentures Wears glasses Thyroid disease Walker as ambulation aid Uses wheelchair Gastric reflux Former smoker Dependence on continuous supplemental oxygen Shortness of breath on exertion History of echocardiogram Hypoxia BMI 40.0-44.9, adult Spinal stenosis Encounter for screening for malignant neoplasm of lung in current smoker with 30 pack year history or greater Degenerative lumbar spinal stenosis Oral thrush Cough due to bronchospasm Dyspnea on exertion Arthritis Kidney stones GERD (gastroesophageal reflux disease) Anxiety and depression Home Medications Medication Instructions Recorded Last Taken Type sertraline 100 mg tablet 200 mg PO DAILY depression 10/23/20 03/20/25 History aripiprazole 20 mg tablet 20 mg PO DAILY mood 01/06/21 03/20/25 History Pulse oximeter #1 ea 02/05/21 Unknown Rx blood pressure monitor (Blood #1 ea 02/05/21 Unknown Rx Pressure Kit) walker (Ultra-Light Rollator misc) #1 ea 03/24/21 Unknown Rx underpads (Bed Underpads) #40 ea 02/16/22 Unknown Rx nebulizer 12/08/22 Unknown History levothyroxine 50 mcg tablet 50 mcg PO DAILY thhyroid #30 tabs 08/09/23 03/20/25 Rx bupropion HCl 300 mg 24 hr tablet, 300 mg PO DAILY mental health 06/21/24 03/20/25 History extended release esomeprazole magnesium 40 mg 40 mg PO QDAY reflux 09/07/24 03/20/25 History capsule,delayed release furosemide 20 mg tablet 20 mg PO QDAY diuretic 01/31/25 03/20/25 History lisinopril 20 mg tablet 20 mg PO QDAY blood pressure 01/31/25 03/20/25 History pregabalin 100 mg capsule 100 mg PO TID PRN panic attacks 01/31/25 03/20/25 History albuterol sulfate 90 mcg/actuation 2 puff inhalation Q4H PRN 03/12/25 03/20/25 History aerosol inhaler Wheezing/SOB hydroxyzine HCl 25 mg tablet 25 mg PO TID Anxiety 03/12/25 03/20/25 History ipratropium 0.5 mg-albuterol 3 mg 3 ml inhalation 4X/DAY PRN 03/12/25 03/20/25 Rx (2.5 mg base)/3 mL nebulization Shortness of breath/wheeze #180 mL soln roflumilast 500 mcg tablet 500 mcg PO DAILY COPD 03/12/25 03/20/25 History azithromycin 250 mg tablet 250 mg PO DAILY Antibiotic 7 days 03/16/25 03/20/25 Rx #7 tabs ferrous fumarate 324 mg (106 mg 324 mg PO DAILY 03/20/25 03/20/25 History iron) tablet prednisone 10 mg tablet 10 mg PO DAILY 03/20/25 03/20/25 History Allergy/AdvReac Type Severity Reaction Status Date / Time Sulfa (Sulfonamide Allergy Vomiting Verified 03/20/25 15:08 Antibiotics) Family History Mother Diabetes Hypertension Breast cancer Father Heart disease Hypertension Myocardial infarction, Onset Age: 46 Surgical History History of esophagogastroduodenoscopy (EGD) Hx of hernia repair Hx of cholecystectomy History of hand surgery History of hysterectomy History of History of D&C Social History household members: none Smoking Status: Former smoker quit date: 01/03/21 Tobacco: How many years used: 36 alcohol intake: never substance use type: does not use what type of physical activity do you participate in: none EXAM Physical Exam Const Vital Signs: 03/20/25 15:06 03/20/25 17:06 03/20/25 19:00 Temperature 98.3 F Temperature Source Oral Pulse Rate 97 78 82 Respiratory Rate 18 16 18 Blood Pressure 126/65 H 137/78 H 119/71 Blood Pressure Mean 85 97 87 Pulse Ox 88 98 97 Oxygen Delivery Method Nasal Cannula Room Air Oxygen Flow Rate (L/min) 4 03/20/25 21:08 Temperature 97.6 F L Temperature Source Pulse Rate 84 Respiratory Rate 18 Blood Pressure 119/72 Blood Pressure Mean 87 Pulse Ox 98 Oxygen Delivery Method Oxygen Flow Rate (L/min) [facility] [place] Narrative Medical decision making narrative: HISTORY OF PRESENT ILLNESS: Chief complaint: Rectal bleeding 69-year-old female history of chronic hypoxic respiratory failure, COPD, GERD who is on no anticoagulation notes she had 1 episode of bright red blood per rectum. Notes she noted red blood in the toilet. No other episodes noted. No dark stools. No recent NSAID use. No upper abdominal pain. No fevers noted. No urinary complaints noted. REVIEW OF SYSTEMS: Pertinent positives: Red blood per rectum Pertinent negatives: Dizziness, worsening fatigue, shortness of breath or chest pain PHYSICAL EXAM: Nursing triage notes reviewed, Vital signs reviewed Constitutional: please see mdm HENT: MMM Eyes: Pupils equal round and reactive to light, Extraocular muscles intact Neck: No stridor, no JVD, full neck ROM Lungs: Clear to auscultation, No wheezing or rales. No increased work of breathing, no conversational dyspnea, no accessory muscle use, no nasal flaring. No respiratory distress noted Heart: Regular rate and rhythm, No murmurs, No rubs and No gallops, 2+ distal pulses (radial, femoral, posterior tibial) in all extremities Abdomen: Soft, there is no tenderness, rigidity, rebound or guarding, no obvious peritoneal signs, no palpable pulsatile abdominal masses, no auscultated abdominal bruit : No CVAT Extremities: No edema Rectal: Performed with preflight mechanic nurse Kaley present. Verbal consent was given for sensitive exam. Rectal exam with brown stool, no melena, no active bleeding. Noted hemorrhoid approximately 6 o'clock position. Is non-thrombosed and is not actively bleeding. Neuro: No new focal neurological deficits, cranial nerves II through XII intact, 5/5 strength in all present extremities. Intact sensation to light touch in all present extremities, 2+ reflexes bilateral patella tendons. Skin: No rash or lesions noted MEDICAL DECISION MAKING: Chief Complaint: please see [facility] External records reviewed: Recent hospitalization for COPD and CHF exacerbation. Echocardiogram from this visit showed ejection fraction of 50%. Reviewed prior hemoglobin Factors affecting care: as per HPI Social determinants of health: none History obtained from others: Roommates Consults: none [facility] Narrative: Patient was initially hemodynamically stable, afebrile saturating 88% the setting of COPD and chronic hypoxic respiratory failure on her home nasal cannula 4 L. IV O2 monitor placed I considered the following differential diagnosis: Anemia, GI bleed I obtained a broad lab work to further determine if the patient was suffering from a life-threatening etiology. ALL IMAGES (IF OBTAINED) HAVE BEEN PERSONALLY REVIEWED AND INTERPRETED BY MYSELF. Stool occult sample positive consistent with GI bleed. CBC with marked leukocytosis suggestive of systemic inflammation (likely secondary to recent steroid use however given concern with GI bleed obtained a CT scan of the abdomen pelvis.) CBC showed improved anemia that improved from last study (10.3 g/dL to 10.9 g/dL), no thrombocytopenia noted. CMP shows baseline abnormalities liver function test, no FADUMO, no sign of metabolic acidosis or endorgan hypoperfusion CT scan abdomen/pelvis shows no acute abnormality The synthesis of the patient's history, physical exam, labs imaging suggest a GI bleed. She does not require inpatient admission as her vitals are stable she is on a blood thinner she has no active bleeding here in the ED and her blood counts have improved. She is appropriate for outpatient follow-up with GI. Will give GI instructions. Strict return precaution will be discussed The patient and/or family, caregivers express understanding. The patient and/or family, caregivers agrees with the plan. Shared decision making: I will have a discussion with the patient and or visitors regarding risk/benefits of further testing or admission. They will be made aware of of the risk/benefits inherent in this decision they will be given the opportunity to voice understanding. Total critical care time today provided was at least 0 minutes. This excludes separately billable procedures. Critical care time (if documented) is secondary to the patient having high probability of clinically significant/life threatening deterioration in the patient's condition which required my urgent intervention. Impression: 1. Bright red blood per rectum 2. GI bleed 3. Leukocytosis Dispo: Discharge home This note was generated with [email or web address] dictation software. It may contain incorrect words, spelling, and punctuation that were not noted in review of the chart prior to signing. Lab Data Labs: Laboratory Results - last 24 hr 03/20/25 03/20/25 03/20/25 15:21 15:21 19:06 WBC Cancelled 21.8 H Corrected WBC Cancelled RBC Cancelled 4.63 Hgb Cancelled 10.9 L Hct Cancelled 35.4 L MCV Cancelled 76.5 L MCH Cancelled 23.5 L MCHC Cancelled 30.8 L RDW Std Deviation Cancelled 60.1 H RDW Coeff of Ronny Cancelled 22.3 H Plt Count Cancelled 320 MPV Cancelled 8.4 Immature Gran % (Auto) Cancelled 4.000 H Neut % (Auto) Cancelled 84.7 H Lymph % (Auto) Cancelled 6.1 L [place] % (Auto) Cancelled 3.8 Eos % (Auto) Cancelled 0.9 Baso % (Auto) Cancelled 0.5 Absolute Neuts (auto) Cancelled 18.5 H Absolute Lymphs (auto) Cancelled 1.33 Total Counted Cancelled Neutrophils % (Manual) Cancelled Band Neutrophils % Cancelled Lymphocytes % (Manual) Cancelled Monocytes % (Manual) Cancelled Eosinophils % (Manual) Cancelled Basophils % (Manual) Cancelled Metamyelocytes % Cancelled Myelocytes % Cancelled Promyelocytes % Cancelled Blast Cells % Cancelled Plasma Cell % (Manual) Cancelled Other Cells % Cancelled Nucleated RBC % Cancelled 0 Nucleated RBCs/100 WBC Cancelled Differential Comment Cancelled SCANNED Diff Path Review Cancelled Hypersegmented Neuts Cancelled Atypical Lymphocytes Cancelled Reactive Lymphocytes Cancelled Smudge Cells Cancelled Toxic Granulation Cancelled Toxic Vacuolation Cancelled Dohle Bodies Cancelled Sourav Rods Cancelled Platelet Estimate Cancelled ADEQUATE Plt Morphology Comment Cancelled RBC Morphology Cancelled Cancelled Polychromasia Cancelled 1+ Hypochromasia Cancelled Basophilic Stippling Cancelled Anisocytosis Cancelled 2+ Microcytosis Cancelled Macrocytosis Cancelled Spherocytes Cancelled Sickle Cells Cancelled Target Cells Cancelled Tear Drop Cells Cancelled Ovalocytes Cancelled Stomatocytes Cancelled [place] Bodies Cancelled Gee Cells Cancelled Bite Cells Cancelled Crenated Cell Cancelled Acanthocytes (Spur) Cancelled Rouleaux Cancelled Schistocytes Cancelled Sodium Cancelled 136 Potassium Cancelled 4.5 Chloride Cancelled 96 L Carbon Dioxide Cancelled 26.5 Anion Gap Cancelled 14 BUN Cancelled 24 H Creatinine Cancelled 1.01 Estim Creat Clear Calc Cancelled Est GFR (MDRD) Non-Af Cancelled 60 BUN/Creatinine Ratio Cancelled 23.4 H Glucose Cancelled 119 H Calcium Cancelled 9.9 Total Bilirubin Cancelled < 0.15 AST Cancelled 36 H ALT Cancelled 76 H Alkaline Phosphatase Cancelled 165 H Total Protein Cancelled 6.6 Albumin Cancelled 3.8 Globulin Cancelled 2.9 Albumin/Globulin Ratio Cancelled 1.3 Radiography Diagnostic Testing: Clinical Impression(s) from Imaging Studies Abdomen/Pelvis CT 03/20/25 19:26 IMPRESSION: No acute intra-abdominal process. Reading Location: [facility] Discharge Plan Triage Chief Complaint: GI Bleed ED Provider: Austin Keita Dx/Rx/DC Orders Clinical Impression: GI (gastrointestinal bleed) Instructions: ED Lower GI Bleeding (Stable) Prescriptions: No Action (DME) nebulizer 0 .Route .MEDSUPPLY lisinopril 20 mg tablet 20 mg PO QDAY furosemide 20 mg tablet 20 mg PO QDAY pregabalin 100 mg capsule 100 mg PO TID PRN (Reason: panic attacks ) Patient Comments: Takes as needed for panic attacks; taken about 2 weeks ago esomeprazole magnesium 40 mg capsule,delayed release(DR/EC) 40 mg PO QDAY sertraline 100 mg tablet 200 mg PO DAILY aripiprazole 20 mg tablet 20 mg PO DAILY bupropion HCl 300 mg tablet extended release 24 hr 300 mg PO DAILY ipratropium-albuterol 0.5 mg-3 mg(2.5 mg base)/3 mL solution for nebulization 3 ml inhalation 4X/DAY PRN (Reason: Shortness of breath/wheeze) Qty: 180 0RF albuterol sulfate 90 mcg/actuation HFA aerosol inhaler 2 puff inhalation Q4H PRN (Reason: Wheezing/SOB) hydroxyzine HCl 25 mg tablet 25 mg PO TID roflumilast 500 mcg tablet 500 mcg PO DAILY azithromycin 250 mg tablet 250 mg PO DAILY 7 Days Qty: 7 0RF prednisone 10 mg tablet 10 mg PO DAILY ferrous fumarate 324 mg (106 mg iron) tablet 324 mg PO DAILY (DME) blood pressure monitor [Blood Pressure Kit] Kit See Rx Instructions .ROUTE .MEDSUPPLY Qty: 1 0RF Rx Instructions: Check daily and as needed (DME) Pulse oximeter See Rx Instructions .Route .MEDSUPPLY Qty: 1 0RF Rx Instructions: Monitor daily or as needed (DME) Ultra-Light Rollator Misc See Rx Instructions .ROUTE .MEDSUPPLY Qty: 1 0RF Rx Instructions: As directed (DME) underpads [Bed Underpads] Pad See Rx Instructions .Route Qty: 40 6RF Rx Instructions: R32. levothyroxine 50 mcg tablet 50 mcg PO DAILY Qty: 30 2RF Primary Care Provider: Tre Weston Referrals: Moncho Ghosh DO [Med Staff - Active Staff] - Activity Restrictions/Additional Instructions: Thank you for trusting us with your care today! Your labs are consistent with a lower GI bleed however your blood counts are stable in fact improving from prior. Your CT scan also was unremarkable. You require outpatient GI follow-up. Please follow-up with Dr. Ghosh. His information has been provided. Please take Tylenol (2 pills, 650 mg), ibuprofen (2 pills, 400 mg) every 6 hours as needed for pain and fever control. Please return to the emergency department if your symptoms change or worsen. Please follow with your primary care physician for further outpatient evaluation and management. Print Language: Liberian Disposition Disposition: Home, Self Care Discharge Date/Time: 03/20/25 21:09
[2025-03-20 17:06] VITALS: BP 137/78; PULSE 78; RESP 16; O2SAT 98
[2025-03-20 19:00] VITALS: BP 119/71; PULSE 82; RESP 18; O2SAT 97
[2025-03-20 19:18] LABS: Hematocrit 35.4 % (37-47); Hemoglobin 10.9 g/dL (12.0-15.0); Immature Granulocytes Count 0.870 X10^3/uL (0.0-0.0); Mean Corp Hgb Conc 30.8 g/dL (32-36); Mean Corpuscular Volume 76.5 fL (81-99); Mean Platelet Vol. 8.4 fl (6.2-12.0); NRBC Flagged by Analyzer 0 % (0-5); POSITIVE MORPHOLOGY YES; Platelet Count 320 K/mm3 (150-450); RBC Distribution Width CV 22.3 % (11.6-14.6); RBC Distribution Width SD 60.1 fl (35.1-43.9); Red Blood Count 4.63 M/mm3 (4.2-5.4); White Blood Count 21.8 K/mm3 (4.4-11.0)
[2025-03-20 19:22] LABS: Differential Indicated SCAN CRITERIA MET
--- NOTE | 2025-03-20 19:26 | CT_ITS ---
PROCEDURE: ABDOMEN/PELVIS W IV CONT ONLY 03/20/2025 REASON FOR EXAM: GI BLEEDING, ELEVATED WHITE BLOOD CELL COUNT TECHNIQUE: ABDOMEN/PELVIS W IV CONT ONLY Coronal and Sagittal reconstruction series were provided. CONTRAST: 100 mL of Isovue 370 One or more dose reduction techniques were used (e.g., Automated exposure control, adjustment of the mA and/or kV according to patient size, use of iterative reconstruction technique. RADIATION DOSE SUMMARY: DLP: 1197 mGycm COMPARISON: 07/20/2024 FINDINGS: Limited sections of the lung bases demonstrate no focal pulmonary mass or consolidations. [id number] pulmonary emphysema. Bibasilar subsegmental atelectasis. The liver, spleen, pancreas, and both adrenal glands demonstrate no acute findings. Hepatic steatosis. 1.1 cm predominantly fatty nodule within the left adrenal gland. The gallbladder is surgically absent. The stomach is unremarkable. The small bowel loops are not dilated. The appendix is normal. No colonic obstruction. There is no free air or significant free fluid. 5 mm nonobstructive stone within the left kidney. Otherwise bilateral kidneys are unremarkable. No hydronephrosis. No obstructive uropathy. The urinary bladder is partially distended. The pelvic structures are intact. There is no solid pelvic mass. No significant lymphadenopathy. Uterus is surgically absent. Tortuous abdominal aorta with extensive atherosclerosis. Visualized osseous structures demonstrate no acute abnormality. Moderate multilevel degenerative changes of the lumbar spine. CT/Abdomen/Pelvis W IV Cont ONLY IMPRESSION: No acute intra-abdominal process. Reading Location: [id number]
[2025-03-20 20:13] LABS: AST(SGOT) 36 U/L (<=31); Alanine Aminotransfer ALT/SGPT 76 U/L (<=34); Albumin, Serum 3.8 g/dL (3.4-4.8); Alkaline Phosphatase 165 U/L (35-104); Anion Gap 14 (5-15); BUN 24 mg/dL (4-19); BUN/Creat Ratio 23.4 RATIO (10-20); Calcium,Total 9.9 mg/dL (7.6-11.0); Carbon Dioxide 26.5 mmol/L (21.0-32.0); Chloride 96 mmol/L (98-108); Globulin 2.9 g/dL (2.2-4.2); Glucose 119 mg/dL (70-99); Potassium 4.5 mmol/L (3.3-5.1)
[2025-03-20 20:38] LABS: Differential Comment SCANNED
[2025-03-20 20:45] LABS: Anisocytosis 2+; Polychromasia 1+
[2025-03-20 21:08] VITALS: BP 119/72; PULSE 84; RESP 18; TEMP 36.4; O2SAT 98
== END 2025-03-20 21:09 | disposition home or self-care (01) ==
PROVIDERS: Emergency Provider Emergency Medicine; PCP Family Medicine; Referring Provider Emergency Medicine; Visit Provider Emergency Medicine
DX: K92.2 Gastrointestinal hemorrhage, unspecified (principal); J96.11 Chronic respiratory failure with hypoxia; I11.0 Hypertensive heart disease with heart failure; I50.9 Heart failure, unspecified; J44.9 Chronic obstructive pulmonary disease, unspecified; D72.829 Elevated white blood cell count, unspecified; E03.9 Hypothyroidism, unspecified; F32.A Depression, unspecified; F41.9 Anxiety disorder, unspecified; Z79.899 Other long term (current) drug therapy; Z87.891 Personal history of nicotine dependence
CPT/HCPCS: 36415; 74177; 80053; 82274; 85025; 99282; Q9967; A4216

== ENCOUNTER 2025-03-27 14:30 | Inpatient (IN) | payer MEDICARE, MEDICAID, SELFPAY ==
[2025-03-13 11:57] VITALS: BMI 41.0
[2025-03-27] VITALS (10 sets, daily range): BP systolic 116–148; BP diastolic 67–95; PULSE 84–108; RESP 14–24; TEMP 35.9–36.7; O2SAT 89–100; BMI 44.7; BMI 43.1
--- NOTE | 2025-03-27 15:04 | CT_ITS ---
PROCEDURE: ABDOMEN/PELVIS W IV CONT ONLY 03/27/2025 REASON FOR EXAM: LLQ ABDOMINAL PAIN TECHNIQUE: ABDOMEN/PELVIS W IV CONT ONLY Coronal and Sagittal reconstruction series were provided. CONTRAST: 100 mL of Isovue 370 One or more dose reduction techniques were used (e.g., Automated exposure control, adjustment of the mA and/or kV according to patient size, use of iterative reconstruction technique. RADIATION DOSE SUMMARY: DLP: 652 mGycm COMPARISON: 03/20/25 FINDINGS: Limited sections of the lung bases demonstrate no focal pulmonary mass or consolidations. Bibasilar subsegmental atelectasis. Moderate pulmonary emphysema. Extensive coronary atherosclerosis. The liver, spleen, pancreas, and both adrenal glands demonstrate no acute findings. Stable 8mm left adrenal nodule The gallbladder is surgically removed. The stomach is unremarkable. The small bowel loops are not dilated. The appendix is normal. No colonic obstruction. There is no free air or significant free fluid. Nonobstructive tiny stone within the left kidney; otherwise bilateral kidneys are unremarkable. The urinary bladder is not distended. The pelvic structures are intact. There is no solid pelvic mass. No significant lymphadenopathy. Uterus is surgically absent. The aorta and IVC demonstrate no acute findings. Ectasia of the infrarenal abdominal with extensive atherosclerosis. Visualized osseous structures demonstrate no acute abnormality. Moderate multilevel degenerative changes of the lumbar spine. CT/Abdomen/Pelvis W IV Cont ONLY IMPRESSION: No acute intra-abdominal process. Reading Location: [facility]
--- NOTE | 2025-03-27 15:12 | ED.VIS.GI ---
HPI HPI - GI History of Present Illness Chief Complaint: GI Bleed Narrative Narrative: Patient is a 69-year-old female presenting emergency department for 1 episode of bright red blood per rectum. Patient is not on any oral anticoagulation. She states that about a week ago she had a similar episode and was seen in the ED. She states that she had 1 episode today prior to arrival of bright red blood per rectum. She endorses some generalized weakness. Denies fever, chills, chest pain, shortness of breath worse than normal, nausea, vomiting, diarrhea or constipation. She states her bowel movements are not painful. Denies any dysuria or hematuria. Denies lightheadedness or dizziness. States she does follow with GI, . Friend, and her family called the office prior to coming today and was instructed to come to the ED. She was seen by GI on 03/04 and had a EGD on 02/05 that showed three angiodysplastic lesions in the duodenum. [facility] Medical History Anemia Emotional problems Chronic hypoxemic respiratory failure Hypertension Right knee DJD Spondylosis, lumbar, with myelopathy Cervicalgia Cholelithiasis Ventral hernia Abnormal biliary HIDA scan Hypothyroidism (acquired) Tobacco use disorder, continuous Mixed obstructive and restrictive ventilatory defect Spinal stenosis of lumbar region at multiple levels Nicotine dependence, cigarettes, in remission PTSD (post-traumatic stress disorder) Chronic respiratory failure with hypoxia Bladder disease History of pain when walking History of rheumatic fever History of ESBL E. coli infection Wears dentures Wears glasses Thyroid disease Walker as ambulation aid Uses wheelchair Gastric reflux Former smoker Dependence on continuous supplemental oxygen Shortness of breath on exertion History of echocardiogram Hypoxia BMI 40.0-44.9, adult Spinal stenosis Encounter for screening for malignant neoplasm of lung in current smoker with 30 pack year history or greater Degenerative lumbar spinal stenosis Oral thrush Cough due to bronchospasm Dyspnea on exertion Arthritis Kidney stones GERD (gastroesophageal reflux disease) Anxiety and depression Home Medications ?Medication ?Instructions ?Recorded ?Last Taken ?Type sertraline 100 mg tablet 200 mg PO DAILY depression 10/23/20 03/20/25 History aripiprazole 20 mg tablet 20 mg PO DAILY mood 01/06/21 03/20/25 History Pulse oximeter #1 ea 02/05/21 Unknown Rx blood pressure monitor (Blood #1 ea 02/05/21 Unknown Rx Pressure Kit) walker (Ultra-Light Rollator misc) #1 ea 03/24/21 Unknown Rx underpads (Bed Underpads) #40 ea 02/16/22 Unknown Rx nebulizer 12/08/22 Unknown History levothyroxine 50 mcg tablet 50 mcg PO DAILY thhyroid #30 tabs 08/09/23 03/20/25 Rx bupropion HCl 300 mg 24 hr tablet, 300 mg PO DAILY mental health 06/21/24 03/20/25 History extended release esomeprazole magnesium 40 mg 40 mg PO QDAY reflux 09/07/24 03/20/25 History capsule,delayed release furosemide 20 mg tablet 20 mg PO QDAY diuretic 01/31/25 03/20/25 History lisinopril 20 mg tablet 20 mg PO QDAY blood pressure 01/31/25 03/20/25 History pregabalin 100 mg capsule 100 mg PO TID PRN panic attacks 01/31/25 03/20/25 History albuterol sulfate 90 mcg/actuation 2 puff inhalation Q4H PRN 03/12/25 03/20/25 History aerosol inhaler Wheezing/SOB hydroxyzine HCl 25 mg tablet 25 mg PO TID Anxiety 03/12/25 03/20/25 History ipratropium 0.5 mg-albuterol 3 mg 3 ml inhalation 4X/DAY PRN 03/12/25 03/20/25 Rx (2.5 mg base)/3 mL nebulization Shortness of breath/wheeze #180 mL soln roflumilast 500 mcg tablet 500 mcg PO DAILY COPD 03/12/25 03/20/25 History azithromycin 250 mg tablet 250 mg PO DAILY Antibiotic 7 days 03/16/25 03/20/25 Rx #7 tabs ferrous fumarate 324 mg (106 mg 324 mg PO DAILY 03/20/25 03/20/25 History iron) tablet prednisone 10 mg tablet 10 mg PO DAILY 03/20/25 03/20/25 History Allergy/AdvReac Type Severity Reaction Status Date / Time Sulfa (Sulfonamide Allergy Vomiting Verified 03/27/25 14:32 Antibiotics) Family History Mother Diabetes Hypertension Breast cancer Father Heart disease Hypertension Myocardial infarction, Onset Age: 46 Surgical History History of esophagogastroduodenoscopy (EGD) Hx of hernia repair Hx of cholecystectomy History of hand surgery History of hysterectomy History of History of D&C Social History household members: none Smoking Status: Former smoker quit date: 01/03/21 Tobacco: How many years used: 36 alcohol intake: never substance use type: does not use what type of physical activity do you participate in: none ROS ROS ED ROS Narrative Please see HPI EXAM Physical Exam Const Vital Signs: 03/27/25 14:31 03/27/25 14:54 03/27/25 15:30 Temperature 96.6 F L Temperature Source Temporal Pulse Rate 108 H 95 Respiratory Rate 24 H 14 Blood Pressure 148/84 H 116/67 Blood Pressure Mean 105 83 Pulse Ox 89 98 Oxygen Delivery Method Nasal Cannula Nasal Cannula Room Air Oxygen Flow Rate (L/min) 4 4 Positive well nourished and well developed General Appearance ED: well developed and NAD; Negative for pallor HEENT normocephalic and atraumatic Eyes PERRL General Eye ED: Negative for pale conjunctiva or scleral icterus Resp normal respiratory effort and clear to auscultation bilaterally Resp Narrative: on baseline 4 L NC Effort and Inspection: Negative for respiratory distress Auscultation: Negative for rales, rhonchi or wheezes Cardio regular rate, regular rhythm, S1 normal heart sound, S2 normal heart sound and no murmurs GI Negative for non-distended or no masses GI Narrative: LLQ tenderness to palpation Inspection: Negative for abdominal distention Auscultation: normoactive bowel sounds Palpation: soft; Negative for guarding, rigid or rebound tenderness present Narrative: Rectal exam performed with RN, Estelle Shaw, at bedside. No gross blood or melena. Brown stool seen. Small hemorrhoid seen with no thrombosis. No fissures. Neuro Sensorium / Orientation: alert, oriented to person, oriented to place and oriented to time Skin General Skin Exam: Negative for pallor MDM MDM MDM Narrative Medical decision making narrative: Patient is a 69-year-old female presenting to the emergency department for 1 episode of bright red blood per rectum. Patient was seen and examined. Vitals are stable. Patient resting bed comfortably no acute distress. She is on her 4 L nasal cannula baseline for COPD. Patient endorses some generalized weakness but no other symptoms including lightheadedness, dizziness or palpitations. Rectal exam with no gross blood or melena. With the patient's left lower quadrant abdominal pain a CT abdomen pelvis with IV contrast was ordered to evaluate for any diverticular disease causing the bleeding. Labs ordered to assess for worsening anemia. Patient signed out to Dr. Keita pending CBC, CMP, urinalysis, fecal occult results and CT abd/pelvis. History & Record Review Discussion w/independent historian: Patient and Family Discharge Plan Triage Chief Complaint: GI Bleed ED Provider: Yaquelin Gaytan Dx/Rx/DC Orders Prescriptions: No Action (DME) nebulizer 0 .Route .MEDSUPPLY lisinopril 20 mg tablet 20 mg PO QDAY furosemide 20 mg tablet 20 mg PO QDAY pregabalin 100 mg capsule 100 mg PO TID PRN (Reason: panic attacks ) Patient Comments: Takes as needed for panic attacks; taken about 2 weeks ago esomeprazole magnesium 40 mg capsule,delayed release(DR/EC) 40 mg PO QDAY sertraline 100 mg tablet 200 mg PO DAILY aripiprazole 20 mg tablet 20 mg PO DAILY bupropion HCl 300 mg tablet extended release 24 hr 300 mg PO DAILY ipratropium-albuterol 0.5 mg-3 mg(2.5 mg base)/3 mL solution for nebulization 3 ml inhalation 4X/DAY PRN (Reason: Shortness of breath/wheeze) Qty: 180 0RF albuterol sulfate 90 mcg/actuation HFA aerosol inhaler 2 puff inhalation Q4H PRN (Reason: Wheezing/SOB) hydroxyzine HCl 25 mg tablet 25 mg PO TID roflumilast 500 mcg tablet 500 mcg PO DAILY azithromycin 250 mg tablet 250 mg PO DAILY 7 Days Qty: 7 0RF prednisone 10 mg tablet 10 mg PO DAILY ferrous fumarate 324 mg (106 mg iron) tablet 324 mg PO DAILY (DME) blood pressure monitor [Blood Pressure Kit] Kit See Rx Instructions .ROUTE .MEDSUPPLY Qty: 1 0RF Rx Instructions: Check daily and as needed (DME) Pulse oximeter See Rx Instructions .Route .MEDSUPPLY Qty: 1 0RF Rx Instructions: Monitor daily or as needed (DME) Ultra-Light Rollator Misc See Rx Instructions .ROUTE .MEDSUPPLY Qty: 1 0RF Rx Instructions: As directed (DME) underpads [Bed Underpads] Pad See Rx Instructions .Route Qty: 40 6RF Rx Instructions: R32. levothyroxine 50 mcg tablet 50 mcg PO DAILY Qty: 30 2RF Primary Care Provider: Tre Weston Referrals: Tre Weston MD [Primary Care Provider] - Print Language: Belarusian
[2025-03-27 16:05] LABS: Hematocrit 31.5 % (37-47); Hemoglobin 9.3 g/dL (12.0-15.0); Immature Granulocytes Count 0.180 X10^3/uL (0.0-0.0); Mean Corp Hgb Conc 29.5 g/dL (32-36); Mean Corpuscular Volume 79.7 fL (81-99); Mean Platelet Vol. 8.5 fl (6.2-12.0); NRBC Flagged by Analyzer 0 % (0-5); POSITIVE MORPHOLOGY YES; Platelet Count 299 K/mm3 (150-450); RBC Distribution Width CV 21.7 % (11.6-14.6); RBC Distribution Width SD 62.5 fl (35.1-43.9); Red Blood Count 3.95 M/mm3 (4.2-5.4); White Blood Count 13.0 K/mm3 (4.4-11.0)
[2025-03-27 16:14] LABS: AST(SGOT) 20 U/L (<=31); Alanine Aminotransfer ALT/SGPT 23 U/L (<=34); Albumin, Serum 3.6 g/dL (3.4-4.8); Alkaline Phosphatase 120 U/L (35-104); Anion Gap 11 (5-15); BUN 9 mg/dL (4-19); BUN/Creat Ratio 10.4 RATIO (10-20); Calcium,Total 9.0 mg/dL (7.6-11.0); Carbon Dioxide 28.7 mmol/L (21.0-32.0); Chloride 100 mmol/L (98-108); Globulin 2.6 g/dL (2.2-4.2); Glucose 121 mg/dL (70-99); Potassium 3.8 mmol/L (3.3-5.1)
[2025-03-27 16:34] LABS: Mucous, Urine 0 SEEN /hpf (<or=2+); Red Blood Cells-Urine 0 SEEN /hpf (0-5); Squamous Epithelial Cells - UA 0 SEEN /hpf (5-10)
[2025-03-27 17:03] LABS: Differential Indicated SCAN CRITERIA MET
[2025-03-27 17:45] LABS: Color, Urine Straw (Yellow); Glucose, Dipstick Normal (Normal); Ketone-Dipstick Negative (Negative); Leukocyte Esterase-Dipstick Negative /ul (Negative); Nitrite-Dipstick Negative (Negative); Occult Blood-Urine Negative /ul (Negative); Protein-Dipstick Negative (Negative); Specific Gravity, Urine 1.010 (1.002-1.030); Urine Bilirubin Dipstick Negative (Negative)
--- NOTE | 2025-03-27 18:37 | PCM.HP.STD ---
[facility] - General General Date of Admission: 03/27/25 Date of Service: 03/27/25 Chief Complaint: Recurrent GI bleed [facility] Narrative MAX TOM, is a 69 F who presented to [facility] ED on 03/27/2025 for recurrent GI bleed. Medical history significant for COPD with chronic respiratory failure on 4 L and class III obesity. Patient was hospitalized here in early January for acute on chronic anemia. Had EGD with Dr. Ghosh that showed 3 bleeding angiodysplastic lesions in the duodenum that were treated with heater probe. Hemoglobin remained stable post EGD and she was discharged home on hospital day 3. She was hospitalized here again in mid February for a COPD exacerbation and improved with steroids and scheduled bronchodilators. Importantly, she had an outpatient colonoscopy done by Dr. De Souza on 01/04 that showed no concerning findings. She came to the ED initially on 03/20 episode of bright red blood per rectum. Her hemoglobin was found to be stable from previous and she was discharged home. She presented again today after a large episode of bright red blood per rectum this afternoon. Hemoglobin 9.3, down from 10.9 last week but on lab review her baseline hemoglobin is around 9-10 so she is still essentially at baseline. However, with this being a second episode in a week, case was discussed with Dr. Ghosh who recommended admission for further evaluation. Hospitalist was then contacted for admission. I saw the patient at bedside in the ED, daughter was present. Patient was mildly fatigued appearing but otherwise sitting back comfortably in bed, conversing normally and in no acute distress. Has had no further bowel movements since this afternoon. Denies any pain with a bowel movement, though she does report mild left lower quadrant pain currently. CT abdomen pelvis was done in the ED and was nonacute. She is normotensive and heart rate is stable in the 80s. She denies any acid reflux symptoms. Denies any other acute concerns currently. Will be admitted for further management. [facility] Medical History Anemia Emotional problems Chronic hypoxemic respiratory failure Hypertension Right knee DJD Spondylosis, lumbar, with myelopathy Cervicalgia Cholelithiasis Ventral hernia Abnormal biliary HIDA scan Hypothyroidism (acquired) Tobacco use disorder, continuous Mixed obstructive and restrictive ventilatory defect Spinal stenosis of lumbar region at multiple levels Nicotine dependence, cigarettes, in remission PTSD (post-traumatic stress disorder) Chronic respiratory failure with hypoxia Bladder disease History of pain when walking History of rheumatic fever History of ESBL E. coli infection Wears dentures Wears glasses Thyroid disease Walker as ambulation aid Uses wheelchair Gastric reflux Former smoker Dependence on continuous supplemental oxygen Shortness of breath on exertion History of echocardiogram Hypoxia BMI 40.0-44.9, adult Spinal stenosis Encounter for screening for malignant neoplasm of lung in current smoker with 30 pack year history or greater Degenerative lumbar spinal stenosis Oral thrush Cough due to bronchospasm Dyspnea on exertion Arthritis Kidney stones GERD (gastroesophageal reflux disease) Anxiety and depression Home Medications ?Medication ?Instructions ?Recorded ?Last Taken ?Type sertraline 100 mg tablet 200 mg PO DAILY depression 10/23/20 03/27/25 History aripiprazole 20 mg tablet 20 mg PO DAILY mood 01/06/21 03/27/25 History Pulse oximeter #1 ea 02/05/21 Unknown Rx blood pressure monitor (Blood #1 ea 02/05/21 Unknown Rx Pressure Kit) walker (Ultra-Light Rollator misc) #1 ea 03/24/21 Unknown Rx underpads (Bed Underpads) #40 ea 02/16/22 Unknown Rx nebulizer 12/08/22 Unknown History levothyroxine 50 mcg tablet 50 mcg PO DAILY thhyroid #30 tabs 08/09/23 03/27/25 Rx bupropion HCl 300 mg 24 hr tablet, 300 mg PO DAILY mental health 06/21/24 03/27/25 History extended release esomeprazole magnesium 40 mg 40 mg PO QDAY reflux 09/07/24 03/27/25 History capsule,delayed release furosemide 20 mg tablet 20 mg PO QDAY diuretic 01/31/25 03/27/25 History lisinopril 20 mg tablet 20 mg PO QDAY blood pressure 01/31/25 03/27/25 History pregabalin 100 mg capsule 100 mg PO TID PRN panic attacks 01/31/25 03/27/25 History albuterol sulfate 90 mcg/actuation 2 puff inhalation Q4H PRN 03/12/25 03/20/25 History aerosol inhaler Wheezing/SOB hydroxyzine HCl 25 mg tablet 25 mg PO TID Anxiety 03/12/25 03/27/25 History ipratropium 0.5 mg-albuterol 3 mg 3 ml inhalation 4X/DAY PRN 03/12/25 03/27/25 Rx (2.5 mg base)/3 mL nebulization Shortness of breath/wheeze #180 mL soln roflumilast 500 mcg tablet 500 mcg PO DAILY COPD 03/12/25 03/27/25 History ferrous fumarate 324 mg (106 mg 324 mg PO DAILY anemia 03/20/25 03/27/25 History iron) tablet prednisone 10 mg tablet 10 mg PO DAILY breathing 03/20/25 03/27/25 History Allergy/AdvReac Type Severity Reaction Status Date / Time Sulfa (Sulfonamide Allergy Vomiting Verified 03/27/25 14:32 Antibiotics) Family History Mother Diabetes Hypertension Breast cancer Father Heart disease Hypertension Myocardial infarction, Onset Age: 46 Surgical History History of esophagogastroduodenoscopy (EGD) Hx of hernia repair Hx of cholecystectomy History of hand surgery History of hysterectomy History of History of D&C Social History household members: none Smoking Status: Former smoker quit date: 01/03/21 Tobacco: How many years used: 36 alcohol intake: never substance use type: does not use what type of physical activity do you participate in: none ROS Constitutional Constitutional: Reports fatigue; Denies chills or fever(s) Eyes Eyes: Denies change in vision Cardiovascular Cardiovascular: Denies chest pain Respiratory/Chest Respiratory/Chest: Denies cough or shortness of breath at rest Gastrointestinal Gastrointestinal: Reports abdominal pain and hematochezia; Denies constipation, diarrhea, melena, nausea or vomiting Musculoskeletal Musculoskeletal: Denies arthralgias or myalgias Vital Signs Vital Signs Vital Signs: 03/27/25 14:31 03/27/25 14:54 03/27/25 15:30 Temperature 96.6 F L Temperature Source Temporal Pulse Rate 108 H 95 Respiratory Rate 24 H 14 Blood Pressure 148/84 H 116/67 Blood Pressure Mean 105 83 Pulse Ox 89 98 Oxygen Delivery Method Nasal Cannula Nasal Cannula Room Air Oxygen Flow Rate (L/min) 4 4 03/27/25 16:21 03/27/25 17:00 03/27/25 18:00 Temperature Temperature Source Pulse Rate 84 91 93 Respiratory Rate 17 19 H 18 Blood Pressure 131/86 H 148/77 H 135/95 H Blood Pressure Mean 101 100 108 Pulse Ox 95 96 95 Oxygen Delivery Method Nasal Cannula Nasal Cannula Nasal Cannula Oxygen Flow Rate (L/min) 4 4 4 Weight Weight: 103.9 kg Body Mass Index (BMI) 44.7 Physical Exam Const alert, oriented x3 and no apparent distress Constitutional Narrative: Elderly female, class III obesity, chronically ill-appearing, mildly fatigued appearing, otherwise sitting back comfortably in bed, conversing normally, in no acute distress. General Appearance: cooperative and comfortable HEENT normocephalic, head/scalp atraumatic, hearing grossly normal bilaterally, nasal mucous membranes and turbinates normal and moist oral mucous membranes Eyes PERRL, EOMs intact bilaterally and conjunctivae normal Neck full ROM Chest inspection of chest normal Resp normal respiratory effort and no use of accessory muscles Resp Narrative: Breathing comfortably on home 4 L nasal cannula. Mildly diminished breath sounds bilaterally throughout but no wheezing or crackles noted. Cardio regular rate, regular rhythm, no murmurs and peripheral pulses 2+ throughout GI normal to inspection, nondistended, normoactive bowel sounds, soft to palpation, non-tender and non-distended Back/Spine normal ROM Extremity normal to inspection, full ROM and no pedal edema Skin no rashes or lesions noted Psych mental status grossly normal Results Lab / Micro Data 03/27/25 15:03 03/27/25 15:03 Labs: Laboratory Results - last 24 hr 03/27/25 15:03: WBC 13.0 H, RBC 3.95 L, Hgb 9.3 L, Hct 31.5 L, MCV 79.7 L, MCH 23.5 L, MCHC 29.5 L, RDW Std Deviation 62.5 H, RDW Coeff of Ronny 21.7 H, Plt Count 299, MPV 8.5, Immature Gran % (Auto) 1.400 H, Neut % (Auto) 83.7 H, Lymph % (Auto) 8.7 L, [place] % (Auto) 4.1, Eos % (Auto) 1.8, Baso % (Auto) 0.3, Absolute Neuts (auto) 10.9 H, Absolute Lymphs (auto) 1.13, Nucleated RBC % 0, Sodium 140, Potassium 3.8, Chloride 100, Carbon Dioxide 28.7, Anion Gap 11, BUN 9, Creatinine 0.90, Est GFR (MDRD) Non-Af 69, BUN/Creatinine Ratio 10.4, Glucose 121 H, Calcium 9.0, Total Bilirubin < 0.15, AST 20, ALT 23, Alkaline Phosphatase 120 H, Total Protein 6.3, Albumin 3.6, Globulin 2.6, Albumin/Globulin Ratio 1.4 03/27/25 16:23: Urine Color Straw, Urine Clarity Clear, Urine pH 6.0, Ur Specific [place] 1.010, Urine Protein Negative, Urine Glucose (UA) Normal, Urine Ketones Negative, Urine Occult Blood Negative, Urine Nitrite Negative, Urine Bilirubin Negative, Urine Urobilinogen Normal, Ur Leukocyte Esterase Negative, Urine RBC 0 SEEN, Urine WBC 0 SEEN, Ur Squamous Epith Cells 0 SEEN, Urine Bacteria 0 SEEN, Urine Mucus 0 SEEN Micro: Microbiology 03/27/25 15:03 Stool Stool Occult Blood (MARIANN) - Final Occult Blood Positive Imaging Radiology Impression Abdomen/Pelvis CT 03/27/25 15:04 IMPRESSION: No acute intra-abdominal process. Reading Location: [facility] Assessment & Plan Assessment/Plan (1) GI (gastrointestinal bleed): PLAN: Plan Patient is a 69-year-old female who presented [facility] ED on 03/27/2025 with bright red blood per rectum. 1. Bright red blood per rectum with recurrent GI bleed ? Admit under inpatient status to PCU. GI consulted. Hospitalized in early January with acute on chronic anemia. EGD showed 3 angiodysplastic lesions in duodenum that were cauterized. Notably had colonoscopy in early December that was unremarkable. Had 1 episode of bright red blood rectum on 03/20 and came to ED for this; hemoglobin was stable so she was discharged home. Second episode of BRBPR this afternoon. Discussed with Dr. Ghosh; will complete prep tonight with likely plan for both EGD and colonoscopy tomorrow. Follow-up a.m. CBC. Continue home p.o. PPI twice daily. 2. Chronic iron deficiency anemia ? Hemoglobin 9.3 on admit, baseline hemoglobin 9-10. Hemoglobin was 10.9 on previous ED visit on 03/20 but on chart review hemoglobin has been in the low 9 range as recently as January so it does not appear she is far from her baseline. Treatment for GI bleed as above. Continue home iron supplement. Monitor daily CBC. 3. COPD with chronic respiratory failure ? Follows with pulmonology. Stable on home 4 L nasal cannula on admit, not in acute exacerbation. Continue home inhalers, low-dose prednisone and Roflumilast. 4. Anxiety/depression/PTSD/neuropathy ? Stable. Continue home sertraline, aripiprazole, bupropion and hydroxyzine as needed. 5. Hypertension ? Will hold home lisinopril and Lasix for now. 6. Chronic debility ? PT/OT/case management consulted. Patient went home with home health care after recent hospitalization in mid February. Suspect she will be okay to resume home health care on discharge but appreciate therapy recommendations. 7. Hypothyroidism ? Continue home Synthroid. DVT prophylaxis: SCDs CODE STATUS: DNR-CCA, DNI Expected disposition: Home, TBD Total clinical time spent by myself addressing the patient's medical issues, reviewing all the data, and collaborating with patient's care team: 75 minutes. Charges/Coding Visit Charges Inpatient E&M: 58841 Init Hosp L3
[2025-03-27 18:44] LABS: Differential Comment SCANNED
[2025-03-27 18:45] LABS: Anisocytosis 2+
[2025-03-27 18:46] LABS: Polychromasia 1+
--- NOTE | 2025-03-27 18:46 | CASEMGMT ---
Social Work Patient was recently DC from [facility] on 03/20/25. SW verified that there has been no changes since last face to face assessment. Patient also verified the HH was started, patient has been receiving both PT and SN one time a week. Ines Murray SCRAP HANDLER, ENGINE MANAGER
[2025-03-27] MEDS: Polyethylene Glycol 3350 BOWEL PREP PO (22:07)
[2025-03-28] VITALS (13 sets, daily range): BP systolic 118–154; BP diastolic 58–91; PULSE 83–100; RESP 14–24; TEMP 36.7–37.3; O2SAT 94–100; BMI 43.1
--- NOTE | 2025-03-28 05:55 | EKG12_ITS ---
Test Reason : PRE-OP Blood Pressure : */* mmHG Vent. Rate : 84 BPM Atrial Rate : 84 BPM P-R Int : 156 ms QRS Dur : 90 ms QT Int : 354 ms P-R-T Axes : 58 22 12 degrees QTcB Int : 418 ms Normal sinus rhythm Normal ECG When compared with ECG of 11-Mar-2025 22:38, No significant change was found Confirmed by DUKE POWERS, ROBE ([id number]), features editor KINGS SAAVEDRA ([id number]) on 03/28/2025 8:43:59 AM Referred By: Confirmed By: ROBE WALL MD
[2025-03-28 06:38] LABS: Hematocrit 32.1 % (37-47); Hemoglobin 9.6 g/dL (12.0-15.0); Mean Corp Hgb Conc 29.9 g/dL (32-36); Mean Corpuscular Volume 79.3 fL (81-99); Mean Platelet Vol. 8.2 fl (6.2-12.0); POSITIVE MORPHOLOGY YES; Platelet Count 276 K/mm3 (150-450); RBC Distribution Width CV 21.7 % (11.6-14.6); RBC Distribution Width SD 62.4 fl (35.1-43.9); Red Blood Count 4.05 M/mm3 (4.2-5.4); White Blood Count 13.1 K/mm3 (4.4-11.0)
[2025-03-28 06:53] LABS: Anion Gap 12 (5-15); BUN 7 mg/dL (4-19); BUN/Creat Ratio 8.3 RATIO (10-20); Calcium,Total 9.1 mg/dL (7.6-11.0); Carbon Dioxide 29.0 mmol/L (21.0-32.0); Chloride 100 mmol/L (98-108); Estimated Creatinine Clearance 60.95 ml/min (50-250); Glucose 91 mg/dL (70-99); Potassium 3.6 mmol/L (3.3-5.1)
[2025-03-28 07:06] LABS: Prothrombin Time (Protime)PT. 12.9 SECONDS (11.7-14.9)
[2025-03-28 07:07] LABS: Partial Thromboplast Time 28.5 Seconds (24.1-36.2)
[2025-03-28 08:32] LABS: Scan Indicated on CBC? Y/N YES- FLAGS NOTED
--- NOTE | 2025-03-28 12:53 | PN_ITS ---
Subjective Subjective Patient seen and examined with her nurse by her bedside. She had no active complaitns. She has not had any more rectal bleeding since admission. She is due for EGD and colonoscopy today. Review of systems is otherwise negative. Hb today is 9.6. Objective Data Objective Data Vital Signs: Vital Signs Temp Pulse Resp BP Pulse Ox O2 Del Method O2 Flow Rate 98.7 F 89 14 124/66 H 98 Nasal Cannula 4 03/28/25 09:16 03/28/25 09:16 03/28/25 09:16 03/28/25 09:16 03/28/25 09:16 03/28/25 09:16 03/28/25 12:06 Oxygen Flow Rate (L/min) 4 Oxygen Delivery Method Nasal Cannula Weight: 220 lb 10.923 oz Body Mass Index (BMI) 43.1 Intake & Output: Intake and Output for Last 24 Hours 03/26/25 03/27/25 03/28/25 23:59 23:59 23:59 Output Total 700 / 700 Balance -700 / -700 Lab / Micro Data 03/28/25 06:21 03/28/25 06:21 Labs: Laboratory Results - last 24 hr 03/27/25 15:03: WBC 13.0 H, RBC 3.95 L, Hgb 9.3 L, Hct 31.5 L, MCV 79.7 L, MCH 23.5 L, MCHC 29.5 L, RDW Std Deviation 62.5 H, RDW Coeff of Ronny 21.7 H, Plt Count 299, MPV 8.5, Immature Gran % (Auto) 1.400 H, Neut % (Auto) 83.7 H, Lymph % (Auto) 8.7 L, [place] % (Auto) 4.1, Eos % (Auto) 1.8, Baso % (Auto) 0.3, Absolute Neuts (auto) 10.9 H, Absolute Lymphs (auto) 1.13, Nucleated RBC % 0, Differential Comment SCANNED, Platelet Estimate ADEQUATE, Polychromasia 1+, Anisocytosis 2+, Sodium 140, Potassium 3.8, Chloride 100, Carbon Dioxide 28.7, Anion Gap 11, BUN 9, Creatinine 0.90, Est GFR (MDRD) Non-Af 69, BUN/Creatinine Ratio 10.4, Glucose 121 H, Calcium 9.0, Total Bilirubin < 0.15, AST 20, ALT 23, Alkaline Phosphatase 120 H, Total Protein 6.3, Albumin 3.6, Globulin 2.6, Albumin/Globulin Ratio 1.4 03/27/25 16:23: Urine Color Straw, Urine Clarity Clear, Urine pH 6.0, Ur Specific Waterproof 1.010, Urine Protein Negative, Urine Glucose (UA) Normal, Urine Ketones Negative, Urine Occult Blood Negative, Urine Nitrite Negative, Urine Bilirubin Negative, Urine Urobilinogen Normal, Ur Leukocyte Esterase Negative, Urine RBC 0 SEEN, Urine WBC 0 SEEN, Ur Squamous Epith Cells 0 SEEN, Urine Bacteria 0 SEEN, Urine Mucus 0 SEEN 03/28/25 06:21: WBC 13.1 H, RBC 4.05 L, Hgb 9.6 L, Hct 32.1 L, MCV 79.3 L, MCH 23.7 L, MCHC 29.9 L, RDW Std Deviation 62.4 H, RDW Coeff of Ronny 21.7 H, Plt Count 276, MPV 8.2, PT 12.9, INR 1.0, APTT 28.5, Sodium 140, Potassium 3.6, Chloride 100, Carbon Dioxide 29.0, Anion Gap 12, BUN 7, Creatinine 0.90, Estim Creat Clear Calc 60.95, Est GFR (MDRD) Non-Af 68, BUN/Creatinine Ratio 8.3 L, Glucose 91, Calcium 9.1 Micro: Microbiology 03/27/25 15:03 Stool Stool Occult Blood (MARIANN) - Final Occult Blood Positive Radiography Diagnostic Testing: Radiology Impression Abdomen/Pelvis CT 03/27/25 15:04 IMPRESSION: No acute intra-abdominal process. Reading Location: [facility] Physical Exam Const alert, oriented x3 and no apparent distress Constitutional Narrative: class III obesity General Appearance: cooperative HEENT normocephalic, head/scalp atraumatic, moist oral mucous membranes, oropharynx normal and gingiva normal Eyes PERRL and EOMs intact bilaterally Neck no lymphadenopathy and supple Lymph Lymphatic: no lymphadenopathy noted and no lymphedema noted Resp Resp Narrative: mildly diminished breath sounds bibasally, no wheezes or crackles. On 4L of oxygen by nasal canula Cardio regular rate, regular rhythm, S1 normal heart sound, S2 normal heart sound and no murmurs GI normal to inspection, nondistended, normoactive bowel sounds, soft to palpation, non-tender and non-distended Extremity normal capillary refill, no clubbing, cyanosis or edema and no calf tenderness General Extremity: no tenderness to palpation of joints or extremities Skin General Skin Exam: no breakdown Neuro CN's II-XII intact bilaterally, no focal motor deficits, no sensory deficits noted and deep tendon reflexes 2+ bilaterally Motor Exam: general weakness Psych thought process normal and cooperative Appearance: appropriate Assessment & Plan Assessment/Plan (1) FADUMO (acute kidney injury): (2) Anemia: PLAN: Plan #Acute lower GI bleed * admitted with a complaitn of rcurrent bright red bleeding per rectum * currently NPO * had previous EGD which showed 3 angiodysplastic lesions in the duodenum which were cauterized. * had colonoscopy in December 2024 which showed no evidence of bleeding * Hemoglobin today is 9.6. On IV pantoprazole 40 mg twice daily. Trend hemoglobin. GI on board. For EGD and colonoscopy today. #Acute on chronic anemia * Hb today is 9.6. Baseline is ~ 10 * here for lower GI bleed. On iron supplementaiton * monitor and transfuse if Hb <7 * #Chronic respiratory failure due to COPD * On 4 L of oxygen at baseline. Not in exacerbation from COPD. Continue breathing treatments bronchodilators. On Roflumilast and low-dose prednisone. #Anxiety and depression: on srdtraline, aripiprazole and bupriopion as well as hydroxyzine #Hypertension: on lisinoprila nd lasix which are on hold #Debility and weakness: PT/OT On board. fall precuations #Hypothyroidism:on synthroid DVT prophylaxis: SCDs Charges/Coding Visit Charges Inpatient E&M: 32861 Subs Hosp L2
--- NOTE | 2025-03-28 14:55 | NURSING ---
report called to eugenie in [facility]
[2025-03-28] MEDS: Lactated Ringers 1,000 ML 15 ML IV (15:21)
--- NOTE | 2025-03-28 15:25 | PRE.ANES_ITS ---
ASA Classification* ASA Classification ASA Classification: 3 Assessment & Plan Anesthesia* Anesthesia Assessment Anesthesia Assessment: Discussed sedation and/or anesthesia options, risks, benefits, and alternatives with patient/parents/legal guardian/POA. Questions invited. The patient/parents/legal guardian/POA seems to understand and agrees to proceed with anesthesia plan. Reviewed the physical assessment, medical history, allergy history and patient home medications list prior to surgery/procedure/anesthetic and documented any changes. Performed airway and anesthesia risk assessments. Anesthesia Type Anesthesia Type: MAC History Source History Obtained from:: Patient, Chart and Parent/ Guardian Anesthesia Focused Assessment* Temperature: 98.9 F Pulse Rate: 90 Blood Pressure: 131/58 Respiratory Rate: 15 Pulse Ox: 100 Oxygen Delivery Method: Nasal Cannula (34 L/min at baseline with sat 93% at baseline. ) Oxygen Flow Rate (L/min): 4 Airway Assessment Mouth opens: >3 cm Mallampati Score: II Teeth Condition: Dentures Neck Range of motion (ROM): Limited ROM Labs Anesthesia Preop lab: CBC WBC 13.1 K/mm3 (4.4-11.0) H 03/28/25 06: 5 RBC 4.05 M/mm3 (4.2-5.4) L 03/28/25 06:21 03/28/25 Hgb 9.6 g/dL (12.0-15.0) L 03/28/25 06:21 03/28/25 Hct 32.1 % (37-47) L 03/28/25 06:21 03/28/25 Plt Count 276 K/mm3 (150-450) 03/28/25 06:21 03/28/25 CHEMISTRY Potassium 3.6 mmol/L (3.3-5.1) 03/28/25 06:03/28/25 Sodium 140 mmol/L (133-145) 03/28/25 06:03/28/25 Magnesium 1.8 mg/dL (1.5-2.2) 03/14/25 05:29 03/14/25 Phosphorus 4.7 mg/dL (2.7-4.5) H 03/14/25 05:03/14/25 BUN 7 mg/dL (4-19) 03/28/25 06:21 03/28/25 Creatinine 0.90 mg/dL (0.70-1.20) 03/28/25 06:21 03/28/25 Glucose 91 mg/dL (70-99) 03/28/25 06:21 03/28/25 POC Glucose 169 mg/dL (74-106) H 03/16/25 11:05 03/16/25 TSH 0.288 uIU/mL (0.300-4.200) L 02/05/25 05:26 COAG PT 12.9 SECONDS (11.7-14.9) 03/28/25 06:21 Pre-Assessment Diagnosis/Proposed Procedure Planned Operative Procedure(s): EGD and colonoscopy Anesthesia History 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 When Was Last Pacemaker Check QUESTION #4 FULL TEXT: You/Your Family Experience fever (hyperthermia) with Anesthesia Last Oral Intake Last Oral intake: Last Oral Intake NPO since 00:00 03/28/25 14:49 Meds taken in AM with sips of No 03/28/25 14:49 water? Meds patient instructed to take am of surgery PONV PONV - photogravure press operator: PONV - photogravure press operator Female HX of Motion Sickness HX of N/V After Surgery Non-Smoker Duration of Surgery greater than 60 minutes Number of Risk Factors PONV Score Height & Weight Height & Weight: Anesthesia: Height & Weight Height 5 ft 03/28/25 14:49 Weight: 100.1 kg 03/28/25 14:49 Body Mass Index (BMI) 43.1 03/28/25 14:49 Respiratory Assessment Respiratory Assessment - photogravure press operator: Respiratory Tract Infection Hx - photogravure press operator Hx Respiratory Tract Infection Yes: PNA about a week ago 03/28/25 01:06 STOP Sleep Apnea STOP Sleep Apnea - photogravure press operator: STOP Sleep Apnea - photogravure press operator Hx Hypertension Yes 03/28/25 12:59 Hx Sleep Apnea No 03/27/25 19:18 CPAP BIPAP Do you snore loudly (louder No 03/27/25 19:18 than talking or can be heard Do you often feel tired/ No 03/27/25 19:18 fatigued/ sleepy during daytime? Has anyone observed you stop No 03/27/25 19:18 breathing during sleep? STOP Results Negative 03/27/25 19:18 QUESTION #5 FULL TEXT : Do you snore loudly (louder than talking or can be heard through closed doors)? 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 Specify any problems Hx of Preganancy in last 3 No 03/27/25 19:18 Months Nurse Filling Out Transfusion RSMAILES 03/27/25 19:18 & Questions: Date: 03/27/25 03/27/25 19:18 Time: 19:58 03/27/25 19:18 Patient unable to answer at this time (ie. confused, unrespo /Reproduction History /Reproductive History - photogravure press operator: /Reproductive Hx- photogravure press operator Hx Now No 03/28/25 01:06 Gestational Age (in weeks): EDC: Hx Hx Para Hx Section SAB No 03/28/25 01:06 Active Medications Active Medications: Current Medications Generic Name Dose Route Start Last Admin Trade Name Freq PRN Reason Stop Dose Admin Acetaminophen 650 mg 03/27/25 19:20 Acetaminophen 325 Mg Tablet PO Q6H PRN PRN Pain 1-10 Or Fever>100.7 Albuterol/Ipratropium 3 ml 03/27/25 19:20 03/27/25 23:30 Ipratropium/Albuterol Sulfate 3 Ml Ampul.Neb INHALATION 3 ml 4X/DAY PRN Administration Shortness of breath/wheeze Aripiprazole 20 mg 03/28/25 10:00 Aripiprazole 10 Mg Tablet PO DAILY PRATIK Bupropion HCl 300 mg 03/28/25 10:00 Bupropion (Xl) 300 Mg Tablet.Xl PO DAILY [facility] Calamine/Phenol 1 applic 03/28/25 10:00 Menthol/Lanolin/Calamine/Znox 113 Gm Tube TOPICAL BID [facility] Protocol Calamine/Phenol 1 applic 03/28/25 14:00 Menthol/Lanolin/Calamine/Znox 113 Gm Tube TOPICAL TID [facility] Protocol Ferrous Gluconate 324 mg 03/28/25 10:00 Ferrous Gluconate 324 Mg Tablet PO DAILY [facility] Hydroxyzine Pamoate 25 mg 03/27/25 19:20 Hydroxyzine Lucy 25 Mg Capsule PO TID PRN ANXIETY/AGITATION Lactated Ringer's 1,000 mls @ 15 mls/hr 03/28/25 15:30 03/28/25 15:21 IV 15 mls/hr .Q48H PRATIK Administration Levothyroxine Sodium 50 mcg 03/28/25 06:00 03/28/25 06:24 Levothyroxine 50 Mcg Tablet PO Not Given DAILY@0600 [facility] Melatonin 3 mg 03/27/25 19:20 Melatonin 3 Mg Tablet PO QHS PRN PRN INSOMNIA Ondansetron HCl 4 mg 03/27/25 19:20 Ondansetron 4 Mg/2 Ml Vial IV Q8H PRN PRN NAUSEA/VOMITING Pantoprazole Sodium 40 mg 03/27/25 22:00 03/27/25 22:08 Pantoprazole Sodium 40 Mg Tablet PO 40 mg BID PRATIK Administration Prednisone 10 mg 03/28/25 08:00 [facility] P[facility] 100 mg 03/27/25 19:31 Pregabalin 50 Mg Capsule PO TID PRN panic attacks Sertraline HCl 200 mg 03/28/25 10:00 Sertraline 100 Mg Tablet PO DAILY PRATIK Sodium Chloride 10 - 40 ml 03/27/25 19:35 0.9% Saline Lock 10 Ml Syringe IV UD PRN SALINE FLUSH [facility] Medical History Anemia Emotional problems Chronic hypoxemic respiratory failure Hypertension Right knee DJD Spondylosis, lumbar, with myelopathy Cervicalgia Cholelithiasis Ventral hernia Abnormal biliary HIDA scan Hypothyroidism (acquired) Tobacco use disorder, continuous Mixed obstructive and restrictive ventilatory defect Spinal stenosis of lumbar region at multiple levels Nicotine dependence, cigarettes, in remission PTSD (post-traumatic stress disorder) Chronic respiratory failure with hypoxia Bladder disease History of pain when walking History of rheumatic fever History of ESBL E. coli infection Wears dentures Wears glasses Thyroid disease Walker as ambulation aid Uses wheelchair Gastric reflux Former smoker Dependence on continuous supplemental oxygen Shortness of breath on exertion History of echocardiogram Hypoxia BMI 40.0-44.9, adult Spinal stenosis Encounter for screening for malignant neoplasm of lung in current smoker with 30 pack year history or greater Degenerative lumbar spinal stenosis Oral thrush Cough due to bronchospasm Dyspnea on exertion Arthritis Kidney stones GERD (gastroesophageal reflux disease) Anxiety and depression Home Medications ?Medication ?Instructions ?Recorded ?Last Taken ?Type sertraline 100 mg tablet 200 mg PO DAILY depression 0 10/23/20 03/27/25 History aripiprazole 20 mg tablet 20 mg PO DAILY mood 01/06/21 03/27/25 History Pulse oximeter #1 ea 02/05/21 Unknown Rx blood pressure monitor (Blood #1 ea 02/05/21 Unknown R x Pressure Kit) walker (Ultra-Light Rollator [facility] [place] [place]) #1 ea 03/24/21 Unkn own Rx underpads (Bed Underpads) #40 ea 02/16/22 Unknown Rx nebulizer 12/08/22 Unknown History levothyroxine 50 mcg tablet 50 mcg PO DAILY thhyroid # 30 tabs 08/09/23 03/27/25 Rx bupropion HCl 300 mg 24 hr tablet, 300 mg PO DAILY [facility] 06/21/24 03/27/25 History extended release esomeprazole magnesium 40 mg 40 mg PO QDAY reflux 08/2903/27/25 History capsule,delayed release furosemide 20 mg tablet 20 mg PO QDAY diuretic 01/3103/27/25 History lisinopril 20 mg tablet 20 mg PO QDAY blood pressure 01/31/25 03/27/25 History pregabalin 100 mg capsule 100 mg PO TID PRN panic riaz cks 01/31/25 03/27/25 History albuterol sulfate 90 mcg/actuation 2 puff inhalation Q 4H PRN 03/12/25 03/20/25 History aerosol inhaler Wheezing/SOB hydroxyzine HCl 25 mg tablet 25 mg PO TID Anxiety 02/2603/27/25 History ipratropium 0.5 mg-albuterol 3 mg 3 ml inhalation 4X/D AY PRN 03/12/25 03/27/25 Rx (2.5 mg base)/3 mL nebulization Shortness of breath/wh eeze #180 mL soln roflumilast 500 mcg tablet 500 mcg PO DAILY COPD 03/1203/27/25 History ferrous fumarate 324 mg (106 mg 324 mg PO DAILY anemia 03/20/25 03/27/25 History iron) tablet prednisone 10 mg tablet 10 mg PO DAILY breathing 03/27/25 History Allergy/AdvReac Type Severity Reaction Status Date / Time Sulfa (Sulfonamide Allergy Vomiting Verified 03/27/25 14:32 Antibiotics) Family History Mother Diabetes Hypertension Breast cancer Father Heart disease Hypertension Myocardial infarction, Onset Age: 46 Surgical History History of esophagogastroduodenoscopy (EGD) Hx of hernia repair Hx of cholecystectomy History of hand surgery History of hysterectomy History of History of D&C Social History household members: none Smoking Status: Former smoker quit date: 01/03/21 Tobacco: How many years used: 36 alcohol intake: never substance use type: does not use what type of physical activity do you participate in: none Review of Systems (Anesthesia) ROS Narrative System reviewed and no additional complaints, except as documented.
--- NOTE | 2025-03-28 16:41 | EX.PCM.CON.G ---
HPI Consult Data Date of Consult: 03/28/25 HPI Narrative Reason for Consultation: Anemia HPI Narrative: MAX TOM, is a 69 F who presents1 F who presented to [facility] ED with worsening shortness of breath. Patient has history of COPD and is on 3 L nasal cannula at baseline. She follows with Dr. Yao and saw him in the office on 01/31. She was noted the patient has Gold stage III COPD and is on triple therapy and has completed pulmonary rehab. Because of her decompensated status and frequent exacerbations, she was felt to be a good candidate for low-dose prednisone therapy. Was noted that she was wheezing on exam so she was given a 5-day prednisone 40 mg burst starting on Tuesday. She does not feel like this helped her breathing much over the weekend, so she came to the ED today for further evaluation. She was wheezy on exam but was otherwise satting in the mid 90s on 3 L nasal cannula. However, she was found to have a hemoglobin of 9.2, down from her baseline of 11-12. Hemoccult positive. She denies any dark or bloody stools recently. Of note, she had a colonoscopy done in December and an EGD done in August both with Dr. De Souza that were unremarkable. Lab workup was otherwise fairly benign. With her worsening hemoglobin and concern for GI bleed along with symptomatic anemia. I was consulted for anemia. I saw the patient at bedside in the ED. Patient was fatigued appearing but otherwise sitting back comfortably in bed and breathing comfortably on her home 3 L nasal cannula and answering questions appropriately for me. She noted feeling more fatigued, weak and short of breath over the past 3 to 4 days especially. She has history of acid reflux but denies any worsening of symptoms recently. Denies any nausea or episodes of vomiting recently. No other acute concerns at this time. [facility] Medical History Anemia Emotional problems Chronic hypoxemic respiratory failure Hypertension Right knee DJD Spondylosis, lumbar, with myelopathy Cervicalgia Cholelithiasis Ventral hernia Abnormal biliary HIDA scan Hypothyroidism (acquired) Tobacco use disorder, continuous Mixed obstructive and restrictive ventilatory defect Spinal stenosis of lumbar region at multiple levels Nicotine dependence, cigarettes, in remission PTSD (post-traumatic stress disorder) Chronic respiratory failure with hypoxia Bladder disease History of pain when walking History of rheumatic fever History of ESBL E. coli infection Wears dentures Wears glasses Thyroid disease Walker as ambulation aid Uses wheelchair Gastric reflux Former smoker Dependence on continuous supplemental oxygen Shortness of breath on exertion History of echocardiogram Hypoxia BMI 40.0-44.9, adult Spinal stenosis Encounter for screening for malignant neoplasm of lung in current smoker with 30 pack year history or greater Degenerative lumbar spinal stenosis Oral thrush Cough due to bronchospasm Dyspnea on exertion Arthritis Kidney stones GERD (gastroesophageal reflux disease) Anxiety and depression Home Medications ?Medication ?Instructions ?Recorded ?Last Taken ?Type sertraline 100 mg tablet 200 mg PO DAILY depression 10/23/20 03/27/25 History aripiprazole 20 mg tablet 20 mg PO DAILY mood 01/06/21 03/27/25 History Pulse oximeter #1 ea 02/05/21 Unknown Rx blood pressure monitor (Blood #1 ea 02/05/21 Unknown Rx Pressure Kit) walker (Ultra-Light Rollator misc) #1 ea 03/24/21 Unknown Rx underpads (Bed Underpads) #40 ea 02/16/22 Unknown Rx nebulizer 12/08/22 Unknown History levothyroxine 50 mcg tablet 50 mcg PO DAILY thhyroid #30 tabs 08/09/23 03/27/25 Rx bupropion HCl 300 mg 24 hr tablet, 300 mg PO DAILY mental health 06/21/24 03/27/25 History extended release esomeprazole magnesium 40 mg 40 mg PO QDAY reflux 09/07/24 03/27/25 History capsule,delayed release furosemide 20 mg tablet 20 mg PO QDAY diuretic 01/31/25 03/27/25 History lisinopril 20 mg tablet 20 mg PO QDAY blood pressure 01/31/25 03/27/25 History pregabalin 100 mg capsule 100 mg PO TID PRN panic attacks 01/31/25 03/27/25 History albuterol sulfate 90 mcg/actuation 2 puff inhalation Q4H PRN 03/12/25 03/20/25 History aerosol inhaler Wheezing/SOB hydroxyzine HCl 25 mg tablet 25 mg PO TID Anxiety 03/12/25 03/27/25 History ipratropium 0.5 mg-albuterol 3 mg 3 ml inhalation 4X/DAY PRN 03/12/25 03/27/25 Rx (2.5 mg base)/3 mL nebulization Shortness of breath/wheeze #180 mL soln roflumilast 500 mcg tablet 500 mcg PO DAILY COPD 03/12/25 03/27/25 History ferrous fumarate 324 mg (106 mg 324 mg PO DAILY anemia 03/20/25 03/27/25 History iron) tablet prednisone 10 mg tablet 10 mg PO DAILY breathing 03/20/25 03/27/25 History Allergy/AdvReac Type Severity Reaction Status Date / Time Sulfa (Sulfonamide Allergy Vomiting Verified 03/27/25 14:32 Antibiotics) Family History Mother Diabetes Hypertension Breast cancer Father Heart disease Hypertension Myocardial infarction, Onset Age: 46 Surgical History History of esophagogastroduodenoscopy (EGD) Hx of hernia repair Hx of cholecystectomy History of hand surgery History of hysterectomy History of History of D&C Social History household members: none Smoking Status: Former smoker quit date: 01/03/21 Tobacco: How many years used: 36 alcohol intake: never substance use type: does not use what type of physical activity do you participate in: none ROS Constitutional Constitutional: Denies fatigue, fever(s), poor appetite, weight gain or weight loss Gastrointestinal Gastrointestinal: Denies belching, bloating, change in bowel habits, change in stool character, chewing difficulty, coffee ground emesis, constipation, cramping, diarrhea, dyspepsia, dysphagia, early satiety, excessive flatus, fecal incontinence, heartburn, hematemesis, hematochezia, hemorrhoids, loose stools, melena, nausea, odynophagia, rectal bleeding, tenesmus, vomiting or weight changes Physical Exam Const alert, oriented x3 and no apparent distress Constitutional Narrative: class III obesity General Appearance: cooperative HEENT normocephalic, head/scalp atraumatic, moist oral mucous membranes, oropharynx normal and gingiva normal Eyes PERRL and EOMs intact bilaterally Neck no lymphadenopathy and supple Lymph Lymphatic: no lymphadenopathy noted and no lymphedema noted Resp Resp Narrative: mildly diminished breath sounds bibasally, no wheezes or crackles. On 4L of oxygen by nasal canula Cardio regular rate, regular rhythm, S1 normal heart sound, S2 normal heart sound and no murmurs GI normal to inspection, nondistended, normoactive bowel sounds, soft to palpation, non-tender and non-distended Extremity normal capillary refill, no clubbing, cyanosis or edema and no calf tenderness General Extremity: no tenderness to palpation of joints or extremities Skin General Skin Exam: no breakdown Neuro CN's II-XII intact bilaterally, no focal motor deficits, no sensory deficits noted and deep tendon reflexes 2+ bilaterally Motor Exam: general weakness Psych thought process normal and cooperative Appearance: appropriate Lab / Micro Data 03/28/25 06:21 03/28/25 06:21 Labs: Laboratory Results - last 24 hr 03/27/25 15:03: WBC 13.0 H, RBC 3.95 L, Hgb 9.3 L, Hct 31.5 L, MCV 79.7 L, MCH 23.5 L, MCHC 29.5 L, RDW Std Deviation 62.5 H, RDW Coeff of Ronny 21.7 H, Plt Count 299, MPV 8.5, Immature Gran % (Auto) 1.400 H, Neut % (Auto) 83.7 H, Lymph % (Auto) 8.7 L, [place] % (Auto) 4.1, Eos % (Auto) 1.8, Baso % (Auto) 0.3, Absolute Neuts (auto) 10.9 H, Absolute Lymphs (auto) 1.13, Nucleated RBC % 0, Differential Comment SCANNED, Platelet Estimate ADEQUATE, Polychromasia 1+, Anisocytosis 2+ 03/27/25 16:23: Urine Color Straw, Urine Clarity Clear, Urine pH 6.0, Ur Specific Sall[place] 1.010, Urine Protein Negative, Urine Glucose (UA) Normal, Urine Ketones Negative, Urine Occult Blood Negative, Urine Nitrite Negative, Urine Bilirubin Negative, Urine Urobilinogen Normal, Ur Leukocyte Esterase Negative, Urine RBC 0 SEEN, Urine WBC 0 SEEN, Ur Squamous Epith Cells 0 SEEN, Urine Bacteria 0 SEEN, Urine Mucus 0 SEEN 03/28/25 06:21: WBC 13.1 H, RBC 4.05 L, Hgb 9.6 L, Hct 32.1 L, MCV 79.3 L, MCH 23.7 L, MCHC 29.9 L, RDW Std Deviation 62.4 H, RDW Coeff of Ronny 21.7 H, Plt Count 276, MPV 8.2, PT 12.9, INR 1.0, APTT 28.5, Sodium 140, Potassium 3.6, Chloride 100, Carbon Dioxide 29.0, Anion Gap 12, BUN 7, Creatinine 0.90, Estim Creat Clear Calc 60.95, Est GFR (MDRD) Non-Af 68, BUN/Creatinine Ratio 8.3 L, Glucose 91, Calcium 9.1 Micro: Microbiology 03/27/25 15:03 Stool Stool Occult Blood (MARIANN) - Final Occult Blood Positive Imaging Radiology Impression Abdomen/Pelvis CT 03/27/25 15:04 IMPRESSION: No acute intra-abdominal process. Reading Location: [facility] Assessment & Plan Assessment/Plan (1) Acute exacerbation of chronic obstructive pulmonary disease: (2) CHF exacerbation: (3) Anemia: PLAN: Plan Patient is a 69-year-old lady with past medical history significant for for chronic hypoxic respiratory failure secondary to COPD who presented to the emergency department with worsening shortness of breath and discovered to have a decreased hemoglobin from 11.8 to 9.0. Acute on Chronic iron deficiency anemia with recent upper GI bleed: Hemoglobin 10.5 on admit, at baseline. She Had recent GI bleed with 3 angiodysplastic lesions treated with heater probe on EGD on 02/05. Continue home PPI twice daily. Subsequently monitoring H&H with plans to transfuse if hemoglobin falls below 7 or patient is deemed to be symptomatic. Will repeat upper endoscopy and perform colonoscopy to evaluate her GI tract. She was explained alternatives, risk and benefits include not withstanding bleeding, infection, sepsis, perforation, need emergent . She will have an ASA of 3. Charges/Coding Visit Charges Inpatient E&M: 90355 Init Hosp L3
--- NOTE | 2025-03-28 17:10 | OP.EGD_ITS ---
Patient Name: Janina Heart Procedure Date: 03/28/2025 3:48 PM Date of : 1955 Age: 69 Procedure: Upper GI endoscopy Indications: Iron deficiency anemia Providers: Moncho Ghosh DO Medicines: Monitored Anesthesia Care Patient Profile: This is a 69 year old female. Refer to note in patient chart for documentation of history and physical. Patient has symptoms. Complications: No immediate complications. Procedure: Pre-Anesthesia Assessment: - Prior to the procedure, a History and Physical was performed, and patient medications and allergies were reviewed. The patient is competent. The risks and benefits of the procedure and the sedation options and risks were discussed with the patient. All questions were answered and informed consent was obtained. Patient identification and proposed procedure were verified by the physician in the pre-procedure area. Mental Status Examination: alert and oriented. Airway Examination: normal oropharyngeal airway and neck mobility. Respiratory Examination: clear to auscultation. CV Examination: normal. Prophylactic Antibiotics: The patient does not require prophylactic antibiotics. Prior Anticoagulants: The patient has taken no anticoagulant or antiplatelet agents except for NSAID medication. ASA Grade Assessment: II - A patient with mild systemic disease. After reviewing the risks and benefits, the patient was deemed in satisfactory condition to undergo the procedure. The anesthesia plan was to use monitored anesthesia care (MAC). Immediately prior to administration of medications, the patient was re-assessed for adequacy to receive sedatives. The heart rate, respiratory rate, oxygen saturations, blood pressure, adequacy of pulmonary ventilation, and response to care were monitored throughout the procedure. The physical status of the patient was re-assessed after the procedure. After obtaining informed consent, the endoscope was passed under direct vision. Throughout the procedure, the patient's blood pressure, pulse, and oxygen saturations were monitored continuously. The pediatric colonoscope was introduced through the mouth, and advanced to the fourth part of the duodenum. Small bowel enteroscopy was deemed necessary. The upper GI endoscopy was accomplished without difficulty. The patient tolerated the procedure well. Scope In: 4:50:06 PM Scope Out: 4:52:40 PM Total Procedure Duration Time 0 hours 2 minutes 34 seconds Findings: The examined esophagus was normal. The entire examined stomach was normal. No gross lesions were noted in the entire examined duodenum. Impression: - Normal esophagus. - Normal stomach. - No gross lesions in the entire examined duodenum. - No specimens collected. Recommendation: - Discharge patient to home. - Resume regular diet. - Continue present medications. Procedure Code(s): --- Professional --- 46422, Small intestinal endoscopy, enteroscopy beyond second portion of duodenum, not including ileum; diagnostic, including collection of specimen(s) by brushing or washing, when performed (separate procedure) CPT copyright 2021 [employer]. All rights reserved. The codes documented in this report are preliminary and upon special technical operations officer review may be revised to meet current compliance requirements. Moncho Ghosh DO 03/28/2025 5:10:06 PM This report has been signed electronically. Number of Addenda: 0 Note Initiated On: 03/28/2025 3:48 PM
--- NOTE | 2025-03-28 17:10 | OP.PROVAT_ITS ---
03/28/2025 Tre Weston Md Re : Upper GI endoscopy procedure for Janina Heart Dear Trista This procedure was performed on February. My impressions and recommendations are as follows: Impressions : - Normal esophagus. - Normal stomach. - No gross lesions in the entire examined duodenum. - No specimens collected. Recommendations : - Discharge patient to home. - Resume regular diet. - Continue present medications. My findings are described in the full procedure note, which is enclosed. If I can be of further assistance, please feel free to contact me at . Sincerely, Moncho Ghosh, 03/28/2025 5:10:06 PM This report has been signed electronically.
--- NOTE | 2025-03-28 17:12 | OP.COLON_ITS ---
Patient Name: Janina Heart Procedure Date: 03/28/2025 4:52 PM Date of : 1955 Age: 69 Procedure: Colonoscopy Indications: Iron deficiency anemia Providers: Moncho Ghosh DO Medicines: Monitored Anesthesia Care Patient Profile: This is a 69 year old female. Refer to note in patient chart for documentation of history and physical. Patient has symptoms. Last Colonoscopy: 6 months ago. Complications: No immediate complications. Procedure: Pre-Anesthesia Assessment: - Prior to the procedure, a History and Physical was performed, and patient medications and allergies were reviewed. The patient is competent. The risks and benefits of the procedure and the sedation options and risks were discussed with the patient. All questions were answered and informed consent was obtained. Patient identification and proposed procedure were verified by the physician in the pre-procedure area. Mental Status Examination: alert and oriented. Airway Examination: normal oropharyngeal airway and neck mobility. Respiratory Examination: clear to auscultation. CV Examination: normal. Prophylactic Antibiotics: The patient does not require prophylactic antibiotics. Prior Anticoagulants: The patient has taken no anticoagulant or antiplatelet agents except for NSAID medication. ASA Grade Assessment: II - A patient with mild systemic disease. After reviewing the risks and benefits, the patient was deemed in satisfactory condition to undergo the procedure. The anesthesia plan was to use monitored anesthesia care (MAC). Immediately prior to administration of medications, the patient was re-assessed for adequacy to receive sedatives. The heart rate, respiratory rate, oxygen saturations, blood pressure, adequacy of pulmonary ventilation, and response to care were monitored throughout the procedure. The physical status of the patient was re-assessed after the procedure. After I obtained informed consent, the scope was passed under direct vision. Throughout the procedure, the patient's blood pressure, pulse, and oxygen saturations were monitored continuously. The pediatric colonoscope was introduced through the anus and advanced to the terminal ileum. The colonoscopy was performed without difficulty. The patient tolerated the procedure well. The quality of the bowel preparation was adequate. The terminal ileum, ileocecal valve, appendiceal orifice, and rectum were photographed. Scope In: 4:55:23 PM Scope Withdrawal Time 0 hours 6 minutes 6 seconds Scope Out: 5:04:35 PM Total Procedure Duration Time 0 hours 9 minutes 12 seconds Findings: The perianal and digital rectal examinations were normal. Multiple small-mouthed diverticula were found in the recto-sigmoid colon and sigmoid colon. A single large localized angiodysplastic lesion with bleeding was found in the cecum. Coagulation for hemostasis using heater probe was successful. Estimated blood loss was minimal. The terminal ileum appeared normal. Impression: - Diverticulosis in the recto-sigmoid colon and in the sigmoid colon. - A single bleeding colonic angiodysplastic lesion. Treated with a heater probe. - The examined portion of the ileum was normal. - No specimens collected. Recommendation: - Resume regular diet. - Continue present medications. - No repeat colonoscopy due to age. Procedure Code(s): --- Professional --- 64374, Colonoscopy, flexible; with control of bleeding, any method CPT copyright 2021 [employer]. All rights reserved. The codes documented in this report are preliminary and upon personal companion review may be revised to meet current compliance requirements. Moncho Ghosh DO 03/28/2025 5:12:17 PM This report has been signed electronically. Number of Addenda: 0 Note Initiated On: 03/28/2025 4:52 PM
--- NOTE | 2025-03-28 17:12 | PCM.POST.ANE ---
Anesthesia: Postop Eval I Current Vital Signs Temperature: 99.2 F Pulse Rate: 100 Blood Pressure: 148/81 Respiratory Rate: 24 Pulse Ox: 99 Oxygen Delivery Method: Nasal Cannula Oxygen Flow Rate (L/min): 4 Assessment Airway patent: Yes Spontaneous unlabored respirations: Yes Mental status: Awake nausea: No Vomiting: No Anesthesia Complication: No Fluid Hydration Crystalloid volume administer (ml): 400 Total IV fluid infused: 400 Progress Note Anesthesia document: Postop Eval 1 completed: Yes
--- NOTE | 2025-03-28 17:13 | OP.PROVAT_ITS ---
03/28/2025 Tre Weston Md Re : Colonoscopy procedure for Janina Heart Dear Trista This procedure was performed on February. My impressions and recommendations are as follows: Impressions : - Diverticulosis in the recto-sigmoid colon and in the sigmoid colon. - A single bleeding colonic angiodysplastic lesion. Treated with a heater probe. - The examined portion of the ileum was normal. - No specimens collected. Recommendations : - Resume regular diet. - Continue present medications. - No repeat colonoscopy due to age. My findings are described in the full procedure note, which is enclosed. If I can be of further assistance, please feel free to contact me at . Sincerely, Moncho Ghosh, 03/28/2025 5:12:17 PM This report has been signed electronically.
--- NOTE | 2025-03-28 17:33 | POSTOPAN2_ITS ---
Anesthesia Postop Eval I Sum Postop Eval Completion status Anesthesia document: Postop Eval 1 completed: Yes Anesthesia Postop Eval I Summary Anesthesia Postop Eval I Summary: Anesthesia Postop Eval I: Assessment Summary Airway patent Yes 03/28/25 17:13 SLEEPING ROOM [email or web address].SHOF Spontaneous unlabored Yes 03/28/25 17:13 SLEEPING ROOM CLEANER.SHOF respirations Mental status Awake 03/28/25 17:13 SLEEPING ROOM CLEANER.SHOF nausea No 03/28/25 17:13 SLEEPING ROOM CLEANER.SHOF Vomiting No 03/28/25 17:13 SLEEPING ROOM CLEANER.SHOF Anesthesia Postop Eval I: Fluid Summary Crystalloid volume administer 400 03/28/25 17:13 SLEEPING ROOM CLEANER.SHOF (ml) Colloids volume administered ( ml) Blood Product volume administered (ml) Total IV fluid infused 400 03/28/25 17:13 SLEEPING ROOM CLEANER.SHOF Anesthesia Postop Eval I: Summary Notes Anesthesia Complication No 03/28/25 17:13 SLEEPING ROOM CLEANER.SHOF Anesthesia Complication Comment: Post-operative progress note Anesthesia: Postop Eval II Evaluation Mental status: Awake and Calm Pain Level: 1 nausea: No Vomiting: No Complications Anesthesia Complication: No
--- NOTE | 2025-03-28 17:33 | PCM.POSTANE2 ---
Anesthesia Postop Eval I Sum Postop Eval Completion status Anesthesia document: Postop Eval 1 completed: Yes Anesthesia Postop Eval I Summary Anesthesia Postop Eval I Summary: Anesthesia Postop Eval I: Assessment Summary Airway patent Yes 03/28/25 17:13 CAMPAIGN ANALYST.SHOF Spontaneous unlabored Yes 03/28/25 17:13 CAMPAIGN ANALYST.SHOF respirations Mental status Awake 03/28/25 17:13 CAMPAIGN ANALYST.SHOF nausea No 03/28/25 17:13 CAMPAIGN ANALYST.SHOF Vomiting No 03/28/25 17:13 CAMPAIGN ANALYST.SHOF Anesthesia Postop Eval I: Fluid Summary Crystalloid volume administer 400 03/28/25 17:13 CAMPAIGN ANALYST.SHOF (ml) Colloids volume administered ( ml) Blood Product volume administered (ml) Total IV fluid infused 400 03/28/25 17:13 CAMPAIGN ANALYST.SHOF Anesthesia Postop Eval I: Summary Notes Anesthesia Complication No 03/28/25 17:13 CAMPAIGN ANALYST.SHOF Anesthesia Complication Comment: Post-operative progress note Anesthesia: Postop Eval II Evaluation Mental status: Awake and Calm Pain Level: 1 nausea: No Vomiting: No Complications Anesthesia Complication: No
[2025-03-28] MEDS: buPROPion (XL) 300 MG TABLET.XL PO (18:02)
[2025-03-28] MEDS: ROFLUMILAST 500 MCG TABLET PO (18:03)
[2025-03-28] MEDS: MELATONIN 3 MG TABLET PO (21:17)
[2025-03-28] MEDS: 0.9% Saline Lock 10 ML Syringe IV (21:17)
[2025-03-29] VITALS (7 sets, daily range): BP systolic 132–150; BP diastolic 65–82; PULSE 79–92; RESP 17–20; TEMP 36.1–36.6; O2SAT 94–99
[2025-03-29] MEDS: buPROPion (XL) 300 MG TABLET.XL PO (08:39)
[2025-03-29] MEDS: ROFLUMILAST 500 MCG TABLET PO (08:39)
[2025-03-29 09:34] LABS: Differential Indicated SCAN CRITERIA MET; Hematocrit 34.2 % (37-47); Hemoglobin 10.2 g/dL (12.0-15.0); Immature Granulocytes Count 0.160 X10^3/uL (0.0-0.0); Mean Corp Hgb Conc 29.8 g/dL (32-36); Mean Corpuscular Volume 79.5 fL (81-99); Mean Platelet Vol. 8.1 fl (6.2-12.0); NRBC Flagged by Analyzer 0 % (0-5); POSITIVE MORPHOLOGY YES; Platelet Count 273 K/mm3 (150-450); RBC Distribution Width CV 21.5 % (11.6-14.6); RBC Distribution Width SD 62.3 fl (35.1-43.9); Red Blood Count 4.30 M/mm3 (4.2-5.4); White Blood Count 12.8 K/mm3 (4.4-11.0)
--- NOTE | 2025-03-29 10:00 | CASEMGMT ---
SYDNI VALDIVIA Chart review: Patient was admitted 03/12-03/16 for acute exacerbation COPD and CHF. See Assessment from 03/13/25. Patient discharge to home with [facility], family support, home oxygen as previously ordered, and follow-up plans in place. Patient returned to [facility] ED on 03/27/25 for GI Bleed and was admitted for recurrent GI Bleed. SYDNI VALDIVIA int to discuss readmission and discharge plans. Patient was wearing oxygen as ordered. Patient states she has been taking medications as prescribed and attended follow-up appts. Patient states [facility] is active with patient and wishes to return home with [facility]. Patient states she has portable oxygen at discharge. Patient denies further needs or concerns. SYDNI VALDIVIA sent updates to [facility] with plans of resumption. CM will continue to follow this patient and plan for a safe discharge.
[2025-03-29 10:03] LABS: Anisocytosis 2+; Differential Comment SCANNED
[2025-03-29 10:12] LABS: Anion Gap 10 (5-15); BUN 7 mg/dL (4-19); BUN/Creat Ratio 7.5 RATIO (10-20); Calcium,Total 9.6 mg/dL (7.6-11.0); Carbon Dioxide 29.9 mmol/L (21.0-32.0); Chloride 99 mmol/L (98-108); Estimated Creatinine Clearance 63.05 ml/min (50-250); Glucose 146 mg/dL (70-99); Potassium 4.5 mmol/L (3.3-5.1)
--- NOTE | 2025-03-29 14:33 | DS.PCM_ITS ---
Providers Date of Admission: 03/27/25 Date of Discharge: 03/29/25 Primary Care Physician: Tre Weston MD Consultations 03/27/25 19:20 Consult: Gastroenterology Routine Consulting Provider: [facility] Reason for Consult: recurrent GI bleed EMERGENT Consult: No Notified: Yes Date Notified: 03/28/25 Time Notified: 07:11 Method of Notification: Text Reason For Visit: RECURRENT GI BLEED Diagnosis Discharge Diagnosis (1) Acute exacerbation of chronic obstructive pulmonary disease: Status: Resolved Code(s): J44.1 - Chronic obstructive pulmonary disease with (acute) exacerbation (2) CHF exacerbation: Status: Resolved Code(s): I50.9 - Heart failure, unspecified (3) Anemia: Status: Acute Code(s): D64.9 - Anemia, unspecified Plan #Acute lower GI bleed * admitted with a complaitn of rcurrent bright red bleeding per rectum * currently NPO * had previous EGD which showed 3 angiodysplastic lesions in the duodenum which were cauterized. * had colonoscopy in December 2024 which showed no evidence of bleeding * Hemoglobin today is 9.6. On IV pantoprazole 40 mg twice daily. Trend hemoglobin. GI on board. For EGD and colonoscopy today. #Acute on chronic anemia * Hb today is 9.6. Baseline is ~ 10 * here for lower GI bleed. On iron supplementaiton * monitor and transfuse if Hb <7 * #Chronic respiratory failure due to COPD * On 4 L of oxygen at baseline. Not in exacerbation from COPD. Continue breathing treatments bronchodilators. On Roflumilast and low-dose prednisone. #Anxiety and depression: on srdtraline, aripiprazole and bupriopion as well as hydroxyzine #Hypertension: on lisinoprila nd lasix which are on hold #Debility and weakness: PT/OT On board. fall precuations #Hypothyroidism:on synthroid DVT prophylaxis: SCDs Medications at Discharge Home Medications sertraline 100 mg tablet 200 mg PO DAILY depression 10/23/20 aripiprazole 20 mg tablet 20 mg PO DAILY mood 01/06/21 Pulse oximeter #1 ea 02/05/21 blood pressure monitor (Blood Pressure Kit) #1 ea 02/05/21 walker (Ultra-Light Rollator misc) #1 ea 03/24/21 underpads (Bed Underpads) #40 ea 02/16/22 nebulizer 12/08/22 levothyroxine 50 mcg tablet 50 mcg PO DAILY thhyroid #30 tabs 08/09/23 bupropion HCl 300 mg 24 hr tablet, extended release 300 mg PO DAILY mental health 06/21/24 esomeprazole magnesium 40 mg capsule,delayed release 40 mg PO QDAY reflux 09/07/24 furosemide 20 mg tablet 20 mg PO QDAY diuretic 01/31/25 lisinopril 20 mg tablet 20 mg PO QDAY blood pressure 01/31/25 pregabalin 100 mg capsule 100 mg PO TID PRN panic attacks 01/31/25 albuterol sulfate 90 mcg/actuation aerosol inhaler 2 puff inhalation Q4H PRN Wheezing/SOB 03/12/25 hydroxyzine HCl 25 mg tablet 25 mg PO TID Anxiety 03/12/25 ipratropium 0.5 mg-albuterol 3 mg (2.5 mg base)/3 mL nebulization soln 3 ml inhalation 4X/DAY PRN Shortness of breath/wheeze #180 mL 03/12/25 roflumilast 500 mcg tablet 500 mcg PO DAILY COPD 03/12/25 ferrous fumarate 324 mg (106 mg iron) tablet 324 mg PO DAILY anemia 03/20/25 prednisone 10 mg tablet 10 mg PO DAILY breathing 03/20/25 Hospital Course Operations None Procedures Colonoscopy and EGD Summary of Care Provided Minutes Spent on Discharge: 45 Hospital Course: Patient is a 69-year-old female with past medical history as outlined was admitted to the ED on 03/27/2025 with complaint of recurrent GI bleed. She had been hospitalized in early January 2025 for acute on chronic anemia and had EGD done which showed 3 bleeding angiodysplastic lesions in the duodenum which were treated with a heater probe. She had an outpatient colonoscopy done by Dr. De Souza in December 2024 which showed no acute findings. She came to the ED on 03/20/2025 with complaint of bright red bleeding per rectum. Hemoglobin was 9.3 and so she was sent home to follow-up on outpatient basis. However the bleeding recurred so she came back to the ED. CT of the abdomen and pelvis done showed no acute pathology. She was admitted and managed for acute recurrent lower GI bleed. Gastroenterology was consulted. She had EGD on 03/28/2025 which showed no evidence of acute bleeding or any acute pathology. She had colonoscopy which showed diverticulosis in the rectosigmoid and sigmoid colon and a single bleeding colonic angiodysplastic lesion which was treated with a heater probe. She remained stable after the colonoscopy and was discharged home on 03/29/2025. She is to follow-up with her primary care doctor and follow-up with gastroenterology within 1 to 2 weeks. Patient was seen and examined prior to discharge. She had no complaints and felt well. She had an uneventful night. Review of systems otherwise negative. Labs and vitals reviewed. Home medication reviewed and reconciled. Physical Exam Const alert, oriented x3 and no apparent distress Constitutional Narrative: class III obesity General Appearance: cooperative and comfortable HEENT normocephalic, head/scalp atraumatic, hearing grossly normal bilaterally, nasal mucous membranes and turbinates normal, moist oral mucous membranes, oropharynx normal and gingiva normal Mouth: oral and palatal mucosa normal Eyes PERRL, EOMs intact bilaterally and conjunctivae normal Neck full ROM, no lymphadenopathy and supple Lymph Lymphatic: no lymphadenopathy noted and no lymphedema noted Chest inspection of chest normal Resp Resp Narrative: mildly diminished breath sounds bibasally, no wheezes or crackles. On 4L of oxygen by nasal canula Cardio regular rate, regular rhythm, S1 normal heart sound, S2 normal heart sound, no murmurs and peripheral pulses 2+ throughout GI normal to inspection, nondistended, normoactive bowel sounds, soft to palpation, non-tender and non-distended Back/Spine normal ROM Extremity normal to inspection, full ROM, normal capillary refill, no clubbing, cyanosis or edema, no calf tenderness and no pedal edema General Extremity: no tenderness to palpation of joints or extremities Skin no rashes or lesions noted General Skin Exam: no breakdown Neuro oriented x3, CN's II-XII intact bilaterally, moves all extremities, no focal motor deficits, no sensory deficits noted and deep tendon reflexes 2+ bilaterally Sensorium / Orientation: awake and alert Motor Exam: general weakness Psych mental status grossly normal, thought process normal and cooperative Appearance: appropriate Weight / BMI Weight Weight: 220 lb 10.923 oz Body Mass Index (BMI) 43.1 ABG / Lab / Microbiology Data 03/29/25 09:21 03/29/25 09:21 Laboratory: Laboratory Results - last 24 hr 03/29/25 09:21: WBC 12.8 H, RBC 4.30, Hgb 10.2 L, Hct 34.2 L, MCV 79.5 L, MCH 23.7 L, MCHC 29.8 L, RDW Std Deviation 62.3 H, RDW Coeff of Ronny 21.5 H, Plt Count 273, MPV 8.1, Immature Gran % (Auto) 1.200 H, Neut % (Auto) 81.0 H, Lymph % (Auto) 12.9 L, [place] % (Auto) 3.4, Eos % (Auto) 1.2, Baso % (Auto) 0.3, A bsolute Neuts (auto) 10.4 H, Absolute Lymphs (auto) 1.65, Nucleated RBC % 0, Differential Comment SCANNED, Anisocytosis 2+, Sodium 139, Potassium 4.5, Chloride 99, Carbon Dioxide 29.9, Anion Gap 10, BUN 7, Creatinine 0.87, Estim Creat Clear Calc 63.05, Est GFR (MDRD) Non-Af 71, BUN/Creatinine Ratio 7.5 L, G lucose 146 H, Calcium 9.6 Microbiology: Microbiology 03/27/25 15:03 Stool Stool Occult Blood (MARIANN) - Final Occult Blood Positive D/C Instructions Discharge Activity: Return to Normal Activity Call your doctor if you observe: Fever of 101 or Higher, Shortness of breath and - (recurrent rectal bleeding) DC O2, CPAP, BIPAP Needs Home O2 Discharge instructions: Yes Type of respiratory needs?: Oxygen Oxygen frequency: Continuous Continuous oxygen liters per minute: 4 DC home with Oxygen: Yes Home O2 MD Review: I have reviewed the oxygen testing, and the patient qualifies for home oxygen equipment and portability. The patient is mobile in the home and the community. Meaningful Use Info Meaningful Use Meaningful Use Diagnoses (Choose all that apply): None applicable Discharge Plan Admission Admit Date/Time: 03/27/25 18:42 Primary Reason for Your Visit: acute lower GI bleed Attending Provider: Sharri Mason Primary Care Provider: Tre Weston Consulting Providers: Chidi Conde Instructions Patient Instructions: Lower GI Endoscopy, ED Lower GI Bleeding (Stable) Discharge Orders/Prescriptions Prescriptions: Continued (DME) nebulizer 0 .Route .MEDSUPPLY lisinopril 20 mg tablet 20 mg PO QDAY furosemide 20 mg tablet 20 mg PO QDAY pregabalin 100 mg capsule 100 mg PO TID PRN (Reason: panic attacks ) Patient Comments: Takes as needed for panic attacks; taken about 2 weeks ago esomeprazole magnesium 40 mg capsule,delayed release(DR/EC) 40 mg PO QDAY sertraline 100 mg tablet 200 mg PO DAILY aripiprazole 20 mg tablet 20 mg PO DAILY bupropion HCl 300 mg tablet extended release 24 hr 300 mg PO DAILY ipratropium-albuterol 0.5 mg-3 mg(2.5 mg base)/3 mL solution for nebulization 3 ml inhalation 4X/DAY PRN (Reason: Shortness of breath/wheeze) Qty: 180 0RF albuterol sulfate 90 mcg/actuation HFA aerosol inhaler 2 puff inhalation Q4H PRN (Reason: Wheezing/SOB) hydroxyzine HCl 25 mg tablet 25 mg PO TID roflumilast 500 mcg tablet 500 mcg PO DAILY prednisone 10 mg tablet 10 mg PO DAILY ferrous fumarate 324 mg (106 mg iron) tablet 324 mg PO DAILY (DME) blood pressure monitor [Blood Pressure Kit] Kit See Rx Instructions .ROUTE .MEDSUPPLY Qty: 1 0RF Rx Instructions: Check daily and as needed (DME) Pulse oximeter See Rx Instructions .Route .MEDSUPPLY Qty: 1 0RF Rx Instructions: Monitor daily or as needed (DME) Ultra-Light Rollator Misc See Rx Instructions .ROUTE .MEDSUPPLY Qty: 1 0RF Rx Instructions: As directed (DME) underpads [Bed Underpads] Pad See Rx Instructions .Route Qty: 40 6RF Rx Instructions: R32. levothyroxine 50 mcg tablet 50 mcg PO DAILY Qty: 30 2RF Referrals / Follow Up: Tre Weston MD [Primary Care Provider] - Within 1 Week Moncho Ghosh DO [Med Staff - Active Staff] - Within 2 Weeks Disposition Disposition (needs filled in before D/C Order can be placed): Home, Self Care Charges/Coding Visit Charges Inpatient E&M: 04995 Disch Hosp >30min
--- NOTE | 2025-03-29 14:41 | CASEMGMT ---
SYDNI VALDIVIA note: [facility] notified pt is discharging home today. Discharge instructions sent to [facility] via [facility]. Jacquelyn SENIOR RN CM
--- NOTE | 2025-03-29 18:42 | PCM.PN.BLA ---
Progress Note The patient is doing well without any signs of bleeding at this time Physical Exam Const alert, oriented x3 and no apparent distress Constitutional Narrative: class III obesity General Appearance: cooperative HEENT normocephalic, head/scalp atraumatic, moist oral mucous membranes, oropharynx normal and gingiva normal Eyes PERRL and EOMs intact bilaterally Neck no lymphadenopathy and supple Lymph Lymphatic: no lymphadenopathy noted and no lymphedema noted Resp Resp Narrative: mildly diminished breath sounds bibasally, no wheezes or crackles. On 4L of oxygen by nasal canula Cardio regular rate, regular rhythm, S1 normal heart sound, S2 normal heart sound and no murmurs GI normal to inspection, nondistended, normoactive bowel sounds, soft to palpation, non-tender and non-distended Extremity normal capillary refill, no clubbing, cyanosis or edema and no calf tenderness General Extremity: no tenderness to palpation of joints or extremities Skin General Skin Exam: no breakdown Neuro CN's II-XII intact bilaterally, no focal motor deficits, no sensory deficits noted and deep tendon reflexes 2+ bilaterally Motor Exam: general weakness Psych thought process normal and cooperative Appearance: appropriate Assessment & Plan Assessment/Plan (1) Acute exacerbation of chronic obstructive pulmonary disease: (2) CHF exacerbation: (3) Anemia: PLAN: Plan Patient is a 69-year-old lady with past medical history significant for for chronic hypoxic respiratory failure secondary to COPD who presented to the emergency department with worsening shortness of breath and discovered to have a decreased hemoglobin from 11.8 to 9.0. Acute on Chronic iron deficiency anemia with recent upper GI bleed: Hemoglobin 10.5 on admit, at baseline. She Had recent GI bleed with 3 angiodysplastic lesions treated with heater probe on EGD on 02/05. Continue home PPI twice daily. Subsequently monitoring H&H with plans to transfuse if hemoglobin falls below 7 or patient is deemed to be symptomatic. Visit Charges Inpatient E&M: 50696 Subs Hosp L3
== END 2025-03-29 16:34 | disposition home health service (06) | DRG 378 ==
LOC: ED 15:50 → PCU 18:51
PROVIDERS: Anesthesiology; Internal Medicine Gastroenterology; Admitting Provider Hospitalist; Emergency Provider Student in an Organized Health Care Education/Training Program; PCP Family Medicine; Visit Provider Student in an Organized Health Care Education/Training Program
PROC: 0DJD8ZZ Inspection of Lower Intestinal Tract, Via Natural or Artificial Opening Endoscopic (ICD-10-PCS; CPT 45378; principal; 2025-03-28 15:55)
DX: K55.21 Angiodysplasia of colon with hemorrhage (principal); J96.10 Chronic respiratory failure, unspecified whether with hypoxia or hypercapnia; Z68.41 Body mass index [BMI] 40.0-44.9, adult; Z66 Do not resuscitate; J44.9 Chronic obstructive pulmonary disease, unspecified; E03.9 Hypothyroidism, unspecified; D50.9 Iron deficiency anemia, unspecified; F32.A Depression, unspecified; I10 Essential (primary) hypertension; K57.30 Diverticulosis of large intestine without perforation or abscess without bleeding; G62.9 Polyneuropathy, unspecified; F41.9 Anxiety disorder, unspecified; E66.813 Obesity, class 3; F43.10 Post-traumatic stress disorder, unspecified; Z79.52 Long term (current) use of systemic steroids; Z87.891 Personal history of nicotine dependence; Z79.51 Long term (current) use of inhaled steroids; Z79.899 Other long term (current) drug therapy
CPT/HCPCS: 36415; 74177; 80048; 80053; 81001; 82274; 85025; 85027; 85610; 85730; 93005; 94640; 94668; 97116; 97162; 97166; 99284; C1889; A4216

== ENCOUNTER → 2025-04-04 | Outpatient (CLI) | payer MEDICAID, SELFPAY ==
[2025-03-13 11:57] VITALS: BMI 41.0
[2025-04-04 15:24] LABS: Hematocrit 34.0 % (37-47); Hemoglobin 10.0 g/dL (12.0-15.0); Immature Granulocytes Count 0.060 X10^3/uL (0.0-0.0); Mean Corp Hgb Conc 29.4 g/dL (32-36); Mean Corpuscular Volume 80.4 fL (81-99); Mean Platelet Vol. 8.5 fl (6.2-12.0); NRBC Flagged by Analyzer 0 % (0-5); POSITIVE MORPHOLOGY YES; Platelet Count 238 K/mm3 (150-450); RBC Distribution Width CV 21.7 % (11.6-14.6); RBC Distribution Width SD 63.7 fl (35.1-43.9); Red Blood Count 4.23 M/mm3 (4.2-5.4); White Blood Count 9.4 K/mm3 (4.4-11.0)
[2025-04-04 15:29] LABS: Differential Indicated SCAN CRITERIA MET
[2025-04-04 16:04] LABS: Anion Gap 11 (5-15); BUN 13 mg/dL (4-19); BUN/Creat Ratio 12.7 RATIO (10-20); Calcium,Total 9.4 mg/dL (7.6-11.0); Carbon Dioxide 30.1 mmol/L (21.0-32.0); Chloride 96 mmol/L (98-108); Glucose 143 mg/dL (70-99); Potassium 3.9 mmol/L (3.3-5.1)
[2025-04-04 20:28] LABS: Anisocytosis 2+; Differential Comment SCANNED
[2025-04-04 20:29] LABS: Polychromasia 1+
== END | disposition home or self-care (01) ==
PROVIDERS: PCP Family Medicine; Referring Provider Family Medicine; Visit Provider Family Medicine
DX: D64.9 Anemia, unspecified (principal); E03.9 Hypothyroidism, unspecified
CPT/HCPCS: 36415; 80048; 84443; 85025

== ENCOUNTER 2025-04-06 05:33 | Emergency (ER) | payer MEDICARE, MEDICAID, SELFPAY ==
[2025-03-13 11:57] VITALS: BMI 41.0
[2025-04-06 05:33] VITALS: BP 128/76; PULSE 92; RESP 17; TEMP 36.8; O2SAT 99; BMI 46.0
--- NOTE | 2025-04-06 05:49 | CT_ITS ---
PROCEDURE: CTA ABD/PELVIS W/WO CONTRAST 04/06/2025 REASON FOR EXAM: GI BLEED TECHNIQUE: CTA ABD/PELVIS W/WO CONTRAST Multiplanar Sagittal and Coronal images were obtained. 3D and or MIPS post processing was performed CONTRAST: Isovue 370 VOLUME: 95 mL One or more dose reduction techniques were used (e.g., Automated exposure control, adjustment of the mA and/or kV according to patient size, use of iterative reconstruction technique). RADIATION DOSE SUMMARY: CTDlvol: 61 mGy DLP: 1181 mGycm COMPARISON: March 27, 2025, March 20, 2025 FINDINGS: Aorta: Moderate atherosclerotic plaque. No aortic rupture, aneurysm or dissection seen. Mild tortuosity of the infrarenal abdominal aorta Iliac Arteries: Scattered atherosclerotic plaque. No aneurysm or significant stenosis. 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 Mild poststenotic dilation to 9 mm.. SMA: Minimal atherosclerotic plaque. No stenosis. IRMA : Normal Right Renal: Mild mixed calcified and soft plaque identified. Left Renal: Mild mixed calcified and soft plaque identified. Extravascular Findings: Emphysema is present. Subsegmental atelectasis right middle lobe and left lower lobe. The liver, spleen, pancreas, adrenals appear normal. 4 mm calculus left lower pole. No collecting system dilation. Cholecystectomy. The stomach, small bowel and colon appear normal. The appendix is normal. No mass or lymphadenopathy. Bladder stimulator is present on the right. Hysterectomy. Disc space narrowing, marginal endplate spurring throughout the lower thoracic and lumbar spine. Lumbar facet hypertrophy is present. CT/CTA Abd/Pelvis W/WO Contrast IMPRESSION: 1. Moderate atherosclerotic plaque. No acute aortic abnormality. 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 2. Nonobstructing calculus left lower pole. 3. Cholecystectomy Reading Location: [id number]
--- NOTE | 2025-04-06 05:53 | EDS_ITS ---
HPI History of Present Illness Chief Complaint: GI Bleed Narrative Narrative: Patient is a 69-year-old female with a past medical history of chronic hypoxic respiratory failure chronically on 4 L nasal cannula, hypertension, hypothyroidism, PTSD, GI bleed, who presented to the emergency department with chief complaint of GI bleed. Patient states that she woke up this morning felt nauseous went to the bathroom and noted that she passed a large clot and noted that she had bright red blood per rectum. She states that she was told that if this was to occur again that she needs come here to the hospital. States that she was recently here for a similar circumstance and noted that she was advised to follow-up in the outpatient setting. [facility] Medical History Anemia Emotional problems Chronic hypoxemic respiratory failure Hypertension Right knee DJD Spondylosis, lumbar, with myelopathy Cervicalgia Cholelithiasis Ventral hernia Abnormal biliary HIDA scan Hypothyroidism (acquired) Tobacco use disorder, continuous Mixed obstructive and restrictive ventilatory defect Spinal stenosis of lumbar region at multiple levels Nicotine dependence, cigarettes, in remission PTSD (post-traumatic stress disorder) Chronic respiratory failure with hypoxia Bladder disease History of pain when walking History of rheumatic fever History of ESBL E. coli infection Wears dentures Wears glasses Thyroid disease Walker as ambulation aid Uses wheelchair Gastric reflux Former smoker Dependence on continuous supplemental oxygen Shortness of breath on exertion History of echocardiogram Hypoxia BMI 40.0-44.9, adult Spinal stenosis Encounter for screening for malignant neoplasm of lung in current smoker with 30 pack year history or greater Degenerative lumbar spinal stenosis Oral thrush Cough due to bronchospasm Dyspnea on exertion Arthritis Kidney stones GERD (gastroesophageal reflux disease) Anxiety and depression Home Medications ?Medication ?Instructions ?Recorded ?Last Taken ?Type sertraline 100 mg tablet 200 mg PO DAILY depression 0 10/23/20 03/27/25 History aripiprazole 20 mg tablet 20 mg PO DAILY mood 01/06/21 03/27/25 History Pulse oximeter #1 ea 02/05/21 Unknown Rx blood pressure monitor (Blood #1 ea 02/05/21 Unknown R x Pressure Kit) walker (Ultra-Light Rollator misc) #1 ea 03/24/21 Unkn own Rx underpads (Bed Underpads) #40 ea 02/16/22 Unknown Rx nebulizer 12/08/22 Unknown History levothyroxine 50 mcg tablet 50 mcg PO DAILY thhyroid # 30 tabs 08/09/23 03/27/25 Rx bupropion HCl 300 mg 24 hr tablet, 300 mg PO DAILY [facility] 06/21/24 03/27/25 History extended release esomeprazole magnesium 40 mg 40 mg PO QDAY reflux 08/2903/27/25 History capsule,delayed release furosemide 20 mg tablet 20 mg PO QDAY diuretic 01/3103/27/25 History lisinopril 20 mg tablet 20 mg PO QDAY blood pressure 01/31/25 03/27/25 History pregabalin 100 mg capsule 100 mg PO TID PRN panic riaz cks 01/31/25 03/27/25 History albuterol sulfate 90 mcg/actuation 2 puff inhalation Q 4H PRN 03/12/25 03/20/25 History aerosol inhaler Wheezing/SOB hydroxyzine HCl 25 mg tablet 25 mg PO TID Anxiety 02/2603/27/25 History ipratropium 0.5 mg-albuterol 3 mg 3 ml inhalation 4X/D AY PRN 03/12/25 03/27/25 Rx (2.5 mg base)/3 mL nebulization Shortness of breath/wh eeze #180 mL soln roflumilast 500 mcg tablet 500 mcg PO DAILY COPD 03/1203/27/25 History ferrous fumarate 324 mg (106 mg 324 mg PO DAILY anemia 03/20/25 03/27/25 History iron) tablet prednisone 10 mg tablet 10 mg PO DAILY breathing 03/27/25 History Allergy/AdvReac Type Severity Reaction Status Date / Time Sulfa (Sulfonamide Allergy Vomiting Verified 04/06/25 05:34 Antibiotics) Family History Mother Diabetes Hypertension Breast cancer Father Heart disease Hypertension Myocardial infarction, Onset Age: 46 Surgical History History of esophagogastroduodenoscopy (EGD) Hx of hernia repair Hx of cholecystectomy History of hand surgery History of hysterectomy History of History of D&C Social History household members: none Smoking Status: Former smoker quit date: 01/03/21 Tobacco: How many years used: 36 alcohol intake: never substance use type: does not use what type of physical activity do you participate in: none ROS ROS ED ROS Narrative Constitutional: Denies fevers, chills, lightheadedness Cardiovascular: Denies chest pain Respiratory: Denies shortness of breath Abdomen: Denies abdominal pain nausea or vomiting complains of bright red blood per rectum as noted above : Denies any urinary symptoms Neurological: Denies any numbness, weakness, tingling Musculoskeletal: Denies any back pain Skin: Denies any rashes or lesions EXAM Physical Exam Narrative Exam Narrative: General: Patient is lying in bed resting comfortably did not appear to be in acute distress Head: Atraumatic, normocephalic Eyes: PERRL bilaterally, EOMI bilaterally, no conjunctival injection noted Neck: Soft, supple, trachea midline Cardiovascular: Regular rate and rhythm Respiratory: Clear to auscultation bilaterally Abdomen: Soft, nondistended, no tenderness to palpation Rectal: Patient had bright red blood per rectum noted on exam no evidence of external hemorrhoids Extremities: +4/5 strength noted in the bilateral upper and lower extremities Neurological: Patient following commands knew that she was at [facility] the year is 2024 Skin: Warm, dry, intact no rashes or lesions noted Const Vital Signs: 04/06/25 05:33 04/06/25 06:33 Temperature 98.2 F Temperature Source Oral Pulse Rate 92 79 Respiratory Rate 17 14 Blood Pressure 128/76 H 132/71 H Blood Pressure Mean 93 91 Pulse Ox 99 99 Oxygen Delivery Method Nasal Cannula Nasal Cannula Oxygen Flow Rate (L/min) 4 4 MDM MDM MDM Narrative Medical decision making narrative: Patient is a 69-year-old female who presents to the emergency room with concern for lower GI bleed. On the differential diagnosis includes but unknown to diverticulosis, angiodysplasia, hemorrhoids. Once the workup is obtained and reviewed she will be reevaluated. Patient states that she is not on any blood thinning medications. Patient's discharge summary from 03/29/2025 was reviewed and patient had previous EGD which showed 3 angiodysplastic lesions in the duodenum which were cauterized Colonoscopy in December 2024 which showed no evidence of bleeding. Patient had EGD again on 03/28/2025 which showed no active bleeding colonoscopy showed diverticulosis in the rectosigmoid and sigmoid colon and a single bleeding colonic angiodysplastic lesion was treated with heater probe. Patient's CBC was reviewed and showed no evidence leukocytosis white blood count was normal at 10, hemoglobin is 10.3 which is stable, platelet count normal at 257. Patient's sodium normal 130, potassium normal 4.7, creatinine normal at 1.07. Patient's total bilirubin was noted be normal at less than 0.15, AST and ALT were noted to be 18 and 18 respectively. Patient alk phosphatase of 126. Patient lipase normal at 39. Patient CTA abdomen pelvis are still pending. I spoke with on-call welt pocket machine operator Dr. Ghosh who states that if her CTA is normal that she can be discharged home. He notes that she should do clear liquid diet for the next 2 to 3 days and if her symptoms are worsening then she should return to the emergency department at that point time. I did discuss this plan with the patient and she is agreeable pending that her CAT scan is normal. This was signed out to oncoming provider to follow-up on see their addendum for ultimate details. Lab Data Labs: Laboratory Results - last 24 hr 04/06/25 05:50 WBC 10.0 RBC 4.19 L Hgb 10.3 L Hct 34.0 L MCV 81.1 MCH 24.6 L MCHC 30.3 L RDW Std Deviation 63.1 H RDW Coeff of Ronny 21.2 H Plt Count 257 MPV 8.4 Immature Gran % (Auto) 1.100 H Neut % (Auto) 74.1 H Lymph % (Auto) 13.6 L [place] % (Auto) 5.3 Eos % (Auto) 5.5 H Baso % (Auto) 0.4 Absolute Neuts (auto) 7.4 Absolute Lymphs (auto) 1.35 Nucleated RBC % 0 Sodium 138 Potassium 4.7 Chloride 97 L Carbon Dioxide 31.9 Anion Gap 9 BUN 12 Creatinine 1.07 Estim Creat Clear Calc 53.37 Est GFR (MDRD) Non-Af 56 L BUN/Creatinine Ratio 11.3 Glucose 125 H Calcium 10.0 Total Bilirubin < 0.15 AST 18 ALT 18 Alkaline Phosphatase 126 H Total Protein 6.5 Albumin 3.6 Globulin 2.8 Albumin/Globulin Ratio 1.3 Lipase 39 Discharge Plan Triage Chief Complaint: GI Bleed ED Provider: Rich Crow Dx/Rx/DC Orders Clinical Impression: GI bleed, Diverticulosis, History of anemia Prescriptions: No Action (DME) nebulizer 0 .Route .MEDSUPPLY lisinopril 20 mg tablet 20 mg PO QDAY furosemide 20 mg tablet 20 mg PO QDAY pregabalin 100 mg capsule 100 mg PO TID PRN (Reason: panic attacks ) Patient Comments: Takes as needed for panic attacks; taken about 2 weeks ago esomeprazole magnesium 40 mg capsule,delayed release(DR/EC) 40 mg PO QDAY sertraline 100 mg tablet 200 mg PO DAILY aripiprazole 20 mg tablet 20 mg PO DAILY bupropion HCl 300 mg tablet extended release 24 hr 300 mg PO DAILY ipratropium-albuterol 0.5 mg-3 mg(2.5 mg base)/3 mL solution for nebulization 3 ml inhalation 4X/DAY PRN (Reason: Shortness of breath/wheeze) Qty: 180 0RF albuterol sulfate 90 mcg/actuation HFA aerosol inhaler 2 puff inhalation Q4H PRN (Reason: Wheezing/SOB) hydroxyzine HCl 25 mg tablet 25 mg PO TID roflumilast 500 mcg tablet 500 mcg PO DAILY prednisone 10 mg tablet 10 mg PO DAILY ferrous fumarate 324 mg (106 mg iron) tablet 324 mg PO DAILY (DME) blood pressure monitor [Blood Pressure Kit] Kit See Rx Instructions .ROUTE .MEDSUPPLY Qty: 1 0RF Rx Instructions: Check daily and as needed (DME) Pulse oximeter See Rx Instructions .Route .MEDSUPPLY Qty: 1 0RF Rx Instructions: Monitor daily or as needed (DME) Ultra-Light Rollator Misc See Rx Instructions .ROUTE .MEDSUPPLY Qty: 1 0RF Rx Instructions: As directed (DME) underpads [Bed Underpads] Pad See Rx Instructions .Route Qty: 40 6RF Rx Instructions: R32. levothyroxine 50 mcg tablet 50 mcg PO DAILY Qty: 30 2RF Primary Care Provider: Tre Weston Referrals: Tre Weston MD [Primary Care Provider] - Activity Restrictions/Additional Instructions: Follow-up your doctors in outpatient setting. If you are having multiple bowel movements with large clots and are having shortness of breath, lightheadedness or any other concerns return to the emergency department. Your blood work did not show any acute findings today and your blood counts are stable. Print Language: Spanish
[2025-04-06 06:03] LABS: Hematocrit 34.0 % (37-47); Hemoglobin 10.3 g/dL (12.0-15.0); Immature Granulocytes Count 0.110 X10^3/uL (0.0-0.0); Mean Corp Hgb Conc 30.3 g/dL (32-36); Mean Corpuscular Volume 81.1 fL (81-99); Mean Platelet Vol. 8.4 fl (6.2-12.0); NRBC Flagged by Analyzer 0 % (0-5); POSITIVE MORPHOLOGY YES; Platelet Count 257 K/mm3 (150-450); RBC Distribution Width CV 21.2 % (11.6-14.6); RBC Distribution Width SD 63.1 fl (35.1-43.9); Red Blood Count 4.19 M/mm3 (4.2-5.4); White Blood Count 10.0 K/mm3 (4.4-11.0)
[2025-04-06 06:04] LABS: Differential Indicated SCAN CRITERIA MET
[2025-04-06] MEDS: 0.9% Normal Saline (1000mL) 1,000 ML 999 ML IV (06:04)
[2025-04-06 06:19] LABS: Lipase 39 U/L (13-75)
[2025-04-06 06:20] LABS: AST(SGOT) 18 U/L (<=31); Alanine Aminotransfer ALT/SGPT 18 U/L (<=34); Albumin, Serum 3.6 g/dL (3.4-4.8); Alkaline Phosphatase 126 U/L (35-104); Anion Gap 9 (5-15); BUN 12 mg/dL (4-19); BUN/Creat Ratio 11.3 RATIO (10-20); Calcium,Total 10.0 mg/dL (7.6-11.0); Carbon Dioxide 31.9 mmol/L (21.0-32.0); Chloride 97 mmol/L (98-108); Estimated Creatinine Clearance 53.37 ml/min (50-250); Globulin 2.8 g/dL (2.2-4.2); Glucose 125 mg/dL (70-99); Potassium 4.7 mmol/L (3.3-5.1)
[2025-04-06 06:33] VITALS: BP 132/71; PULSE 79; RESP 14; O2SAT 99
[2025-04-06 07:24] VITALS: BP 131/78; PULSE 74; RESP 19; O2SAT 100
[2025-04-06 07:28] LABS: Anisocytosis 2+
[2025-04-06 07:35] VITALS: BP 131/78; PULSE 74; RESP 19; TEMP 36.8; O2SAT 100
== END 2025-04-06 07:44 | disposition home or self-care (01) ==
PROVIDERS: Emergency Provider Emergency Medicine; PCP Family Medicine; Visit Provider Emergency Medicine
DX: K57.90 Diverticulosis of intestine, part unspecified, without perforation or abscess without bleeding (principal); I10 Essential (primary) hypertension; Z79.51 Long term (current) use of inhaled steroids; Z79.899 Other long term (current) drug therapy; Z87.891 Personal history of nicotine dependence
CPT/HCPCS: 74174; 80053; 82274; 83690; 85025; 96360; 99283; Q9967; A4216

== ENCOUNTER → 2025-04-23 | Outpatient (CLI) | payer MEDICARE, MEDICAID, SELFPAY ==
[2025-03-13 11:57] VITALS: BMI 41.0
[2025-04-23 12:28] LABS: Hematocrit 35.5 % (37-47); Hemoglobin 10.6 g/dL (12.0-15.0); Immature Granulocytes Count 0.070 X10^3/uL (0.0-0.0); Mean Corp Hgb Conc 29.9 g/dL (32-36); Mean Corpuscular Volume 81.8 fL (81-99); Mean Platelet Vol. 8.4 fl (6.2-12.0); NRBC Flagged by Analyzer 0 % (0-5); Platelet Count 261 K/mm3 (150-450); RBC Distribution Width CV 19.7 % (11.6-14.6); RBC Distribution Width SD 58.9 fl (35.1-43.9); Red Blood Count 4.34 M/mm3 (4.2-5.4); White Blood Count 10.6 K/mm3 (4.4-11.0)
== END | disposition home or self-care (01) ==
LOC: MTLAB 10:16
PROVIDERS: PCP Family Medicine; Referring Provider Family Medicine; Visit Provider Family Medicine
DX: D64.9 Anemia, unspecified (principal)
CPT/HCPCS: 36415; 85025

== ENCOUNTER 2025-05-07 08:56 | Emergency (ER) | payer MEDICARE, MEDICAID, SELFPAY ==
[2025-03-13 11:57] VITALS: BMI 41.0
[2025-05-07] VITALS (16 sets, daily range): BP systolic 109–156; BP diastolic 43–103; PULSE 73–89; RESP 14–20; TEMP 35.6–36; O2SAT 93–100
--- NOTE | 2025-05-07 09:24 | ED.VIS.GI ---
HPI HPI - GI History of Present Illness Chief Complaint: GI Bleed Narrative Narrative: 69-year-old female with past medical history of previous GI bleeding with ulcers that were cauterized by . Friend presents with bright red blood per rectum that began today. She states yesterday everything was fine. Of note, she states that she was sent to a music arranger in [place] named Dr. Kidd who she saw virtually last week. This was secondary to her having previous bleeding ulcers of the small bowel. They thought that maybe her bleeding ulcers were from Aleve use, however she has stopped this. She does not take any blood thinners such as aspirin, Xarelto, or Eliquis. No nausea or vomiting. She presents today because of bright red blood per rectum. She states she is here to have her blood levels checked to make sure that she does not have to have a transfusion. She has not had to have blood transfusion in the past. No exacerbating or alleviating factors. [facility] Medical History Asymptomatic bacteriuria Urge incontinence Nocturia Overactive bladder Anemia Emotional problems Chronic hypoxemic respiratory failure Hypertension Right knee DJD Spondylosis, lumbar, with myelopathy Cervicalgia Cholelithiasis Ventral hernia Abnormal biliary HIDA scan Hypothyroidism (acquired) Tobacco use disorder, continuous Mixed obstructive and restrictive ventilatory defect Spinal stenosis of lumbar region at multiple levels Nicotine dependence, cigarettes, in remission PTSD (post-traumatic stress disorder) Chronic respiratory failure with hypoxia Bladder disease History of pain when walking History of rheumatic fever History of ESBL E. coli infection Wears dentures Wears glasses Thyroid disease Walker as ambulation aid Uses wheelchair Gastric reflux Former smoker Dependence on continuous supplemental oxygen Shortness of breath on exertion History of echocardiogram Hypoxia BMI 40.0-44.9, adult Spinal stenosis Encounter for screening for malignant neoplasm of lung in current smoker with 30 pack year history or greater Degenerative lumbar spinal stenosis Oral thrush Cough due to bronchospasm Dyspnea on exertion Arthritis Kidney stones GERD (gastroesophageal reflux disease) Anxiety and depression Home Medications ?Medication ?Instructions ?Recorded ?Last Taken ?Type sertraline 100 mg tablet 200 mg PO DAILY depression 10/23/20 03/27/25 History aripiprazole 20 mg tablet 20 mg PO DAILY mood 01/06/21 03/27/25 History Pulse oximeter #1 ea 02/05/21 Unknown Rx blood pressure monitor (Blood #1 ea 02/05/21 Unknown Rx Pressure Kit) walker (Ultra-Light Rollator misc) #1 ea 03/24/21 Unknown Rx underpads (Bed Underpads) #40 ea 02/16/22 Unknown Rx nebulizer 12/08/22 Unknown History bupropion HCl 300 mg 24 hr tablet, 300 mg PO DAILY mental health 06/21/24 03/27/25 History extended release esomeprazole magnesium 40 mg 40 mg PO QDAY reflux 09/07/24 03/27/25 History capsule,delayed release furosemide 20 mg tablet 20 mg PO QDAY diuretic 01/31/25 03/27/25 History lisinopril 20 mg tablet 20 mg PO QDAY blood pressure 01/31/25 03/27/25 History pregabalin 100 mg capsule 100 mg PO TID PRN panic attacks 01/31/25 03/27/25 History albuterol sulfate 90 mcg/actuation 2 puff inhalation Q4H PRN 03/12/25 03/20/25 History aerosol inhaler Wheezing/SOB hydroxyzine HCl 25 mg tablet 25 mg PO TID Anxiety 03/12/25 03/27/25 History ipratropium 0.5 mg-albuterol 3 mg 3 ml inhalation 4X/DAY PRN 03/12/25 03/27/25 Rx (2.5 mg base)/3 mL nebulization Shortness of breath/wheeze #180 mL soln roflumilast 500 mcg tablet 500 mcg PO DAILY COPD 03/12/25 03/27/25 History ferrous fumarate 324 mg (106 mg 324 mg PO DAILY anemia 03/20/25 03/27/25 History iron) tablet levothyroxine 75 mcg tablet 75 mcg PO QDAY 04/23/25 Unknown History prednisone 10 mg tablet 10 mg PO QDAY #30 tabs 04/24/25 Unknown Rx Allergy/AdvReac Type Severity Reaction Status Date / Time Sulfa (Sulfonamide Allergy Vomiting Verified 05/07/25 08:57 Antibiotics) Family History Mother Diabetes Hypertension Breast cancer Father Heart disease Hypertension Myocardial infarction, Onset Age: 46 Surgical History History of esophagogastroduodenoscopy (EGD) Hx of hernia repair Hx of cholecystectomy History of hand surgery History of hysterectomy History of History of D&C Social History household members: none Smoking Status: Former smoker quit date: 01/03/21 Tobacco: How many years used: 36 alcohol intake: never substance use type: does not use what type of physical activity do you participate in: none ROS ROS ED ROS Narrative Review of systems positive for bright red blood per rectum. No weakness, no increased shortness of breath. No abdominal pain. No nausea or vomiting. Denies other bleeding diathesis. EXAM Physical Exam Narrative Exam Narrative: Afebrile. Vital signs noted. Nontoxic-appearing. Wearing nasal cannula oxygen for COPD. Cardiovascular examination regular rate and rhythm. Lungs clear to auscultation bilaterally with diminished breath sounds diffusely. Abdomen is soft and nontender without guarding or rebound. Positive bowel sounds. Neurological examination nonfocal, nonlateralizing. No active noted bleeding diathesis currently. No pallor of skin or so conjunctiva, no central cyanosis. Const Vital Signs: 05/07/25 08:57 05/07/25 09:56 05/07/25 09:57 Temperature 96.1 F L Temperature Source Temporal Pulse Rate 77 73 Pulse Rate [Lying] Pulse Rate [Sitting (for 1 minute prior to obtaining)] Pulse Rate [Standing (for 1 minute prior to obtaining)] Respiratory Rate 14 20 H Blood Pressure 134/89 H 127/68 H Blood Pressure [Lying] Blood Pressure [Sitting (for 1 minute prior to obtaining)] Blood Pressure [Standing (for 1 minute prior to obtaining)] Blood Pressure Mean 104 87 Blood Pressure Mean [Lying] Blood Pressure Mean [Sitting (for 1 minute prior to obtaining)] Blood Pressure Mean [Standing (for 1 minute prior to obtaining)] Pulse Ox 93 100 100 Oxygen Delivery Method Room Air Nasal Cannula Oxygen Flow Rate (L/min) 5 05/07/25 10:00 05/07/25 10:15 05/07/25 10:30 Temperature Temperature Source Pulse Rate Pulse Rate [Lying] Pulse Rate [Sitting (for 1 minute prior to obtaining)] Pulse Rate [Standing (for 1 minute prior to obtaining)] Respiratory Rate Blood Pressure 156/59 H 145/48 H 109/49 L Blood Pressure [Lying] Blood Pressure [Sitting (for 1 minute prior to obtaining)] Blood Pressure [Standing (for 1 minute prior to obtaining)] Blood Pressure Mean 91 84 71 Blood Pressure Mean [Lying] Blood Pressure Mean [Sitting (for 1 minute prior to obtaining)] Blood Pressure Mean [Standing (for 1 minute prior to obtaining)] Pulse Ox 100 Oxygen Delivery Method Oxygen Flow Rate (L/min) 05/07/25 10:49 05/07/25 11:00 05/07/25 11:15 Temperature Temperature Source Pulse Rate 82 Pulse Rate [Lying] Pulse Rate [Sitting (for 1 minute prior to obtaining)] Pulse Rate [Standing (for 1 minute prior to obtaining)] Respiratory Rate 16 Blood Pressure 124/47 H 111/43 L Blood Pressure [Lying] Blood Pressure [Sitting (for 1 minute prior to obtaining)] Blood Pressure [Standing (for 1 minute prior to obtaining)] Blood Pressure Mean 71 68 Blood Pressure Mean [Lying] Blood Pressure Mean [Sitting (for 1 minute prior to obtaining)] Blood Pressure Mean [Standing (for 1 minute prior to obtaining)] Pulse Ox 100 100 Oxygen Delivery Method Oxygen Flow Rate (L/min) 05/07/25 11:30 05/07/25 11:36 05/07/25 11:37 Temperature Temperature Source Pulse Rate Pulse Rate [Lying] 89 Pulse Rate [Sitting (for 1 minute prior to obtaining)] 77 Pulse Rate [Standing (for 1 minute prior to obtaining)] 85 Respiratory Rate Blood Pressure 146/71 H 125/52 H Blood Pressure [Lying] 125/52 H Blood Pressure [Sitting (for 1 minute prior to obtaining)] 141/73 H Blood Pressure [Standing (for 1 minute prior to obtaining)] 146/92 H Blood Pressure Mean 96 75 Blood Pressure Mean [Lying] 76 Blood Pressure Mean [Sitting (for 1 minute prior to obtaining)] 95 Blood Pressure Mean [Standing (for 1 minute prior to obtaining)] 110 Pulse Ox 100 Oxygen Delivery Method Oxygen Flow Rate (L/min) 05/07/25 11:38 05/07/25 11:40 05/07/25 11:45 Temperature Temperature Source Pulse Rate 74 Pulse Rate [Lying] Pulse Rate [Sitting (for 1 minute prior to obtaining)] Pulse Rate [Standing (for 1 minute prior to obtaining)] Respiratory Rate 15 Blood Pressure 141/73 H 146/92 H 138/63 H Blood Pressure [Lying] Blood Pressure [Sitting (for 1 minute prior to obtaining)] Blood Pressure [Standing (for 1 minute prior to obtaining)] Blood Pressure Mean 88 111 86 Blood Pressure Mean [Lying] Blood Pressure Mean [Sitting (for 1 minute prior to obtaining)] Blood Pressure Mean [Standing (for 1 minute prior to obtaining)] Pulse Ox 100 100 100 Oxygen Delivery Method Oxygen Flow Rate (L/min) 05/07/25 12:39 Temperature 96.8 F L Temperature Source Pulse Rate 76 Pulse Rate [Lying] Pulse Rate [Sitting (for 1 minute prior to obtaining)] Pulse Rate [Standing (for 1 minute prior to obtaining)] Respiratory Rate 20 H Blood Pressure 135/103 H Blood Pressure [Lying] Blood Pressure [Sitting (for 1 minute prior to obtaining)] Blood Pressure [Standing (for 1 minute prior to obtaining)] Blood Pressure Mean 113 Blood Pressure Mean [Lying] Blood Pressure Mean [Sitting (for 1 minute prior to obtaining)] Blood Pressure Mean [Standing (for 1 minute prior to obtaining)] Pulse Ox 100 Oxygen Delivery Method Oxygen Flow Rate (L/min) MDM MDM MDM Narrative Medical decision making narrative: Differential diagnosis includes but not limited to brisk upper GI bleed versus hemorrhoidal bleed versus bleeding ulcer versus AV malformation bleeding. I reviewed her prior gastroenterology records. At her follow-up in March, she had been referred to a specialist for deep enteroscopy. She had undergone capsule endoscopy which showed some blood in the small bowel. During her most recent hospital stay as she has had intermittent admissions for COPD and GI bleeding, upper GI endoscopy showed no abnormalities but there was an AV malformation which was cauterized by Dr. Ghosh. I will check her laboratory work and make sure she does not have anemia requiring transfusions. I will also perform a rectal examination to see if there is any bright red blood per rectum/active bleeding. On chaperoned rectal examination, she did have brown stool with a small amount of bright red blood per rectum, but no excessive, active hemorrhage. Patient will be discussed with gastroenterology. I was able to discuss patient with Dr. Ghosh. Given that her hemoglobin is rising and is better than previous, as well as orthostatics showing no significant increase in her pulse, it was felt that she can follow-up as an outpatient given her history of AV malformation. It was not felt that she requires admission. I did review strict return instructions with her including increased bleeding, or any new or worsening symptoms. She will also follow-up with her music arranger for deep enteroscopy. Disposition is discharged home in stable condition. History & Record Review Discussion w/independent historian: Patient Additional record(s) reviewed:: Prior inpatient record, Prior outpatient record (Gastroenterology visit, had AV malformation of colon.) and Prior ED visit Lab Data Attestation: I reviewed the patient's lab results. Labs: Laboratory Results - last 24 hr 05/07/25 09:25 WBC 13.2 H RBC 4.56 Hgb 11.3 L Hct 37.7 MCV 82.7 MCH 24.8 L MCHC 30.0 L RDW Std Deviation 57.5 H RDW Coeff of Ronny 19.1 H Plt Count 286 MPV 8.0 Immature Gran % (Auto) 0.800 Neut % (Auto) 76.4 H Lymph % (Auto) 13.9 L [place] % (Auto) 5.1 Eos % (Auto) 3.5 Baso % (Auto) 0.3 Absolute Neuts (auto) 10.1 H Absolute Lymphs (auto) 1.84 Nucleated RBC % 0 Sodium 141 Potassium 4.1 Chloride 100 Carbon Dioxide 31.5 Anion Gap 9 BUN 22 H Creatinine 1.02 Est GFR (MDRD) Non-Af 59 L BUN/Creatinine Ratio 21.6 H Glucose 99 Calcium 9.6 Management Discussion w/another healthcare provider: Plant Attendant (Dr. Ghosh, gastroenterology) Discharge Plan Triage Chief Complaint: GI Bleed ED Provider: Marcellus Hadley Dx/Rx/DC Orders Clinical Impression: Lower gastrointestinal bleeding, AVM (arteriovenous malformation) of colon Instructions: ED Lower GI Bleeding (Stable) Prescriptions: No Action (DME) nebulizer 0 .Route .MEDSUPPLY lisinopril 20 mg tablet 20 mg PO QDAY furosemide 20 mg tablet 20 mg PO QDAY pregabalin 100 mg capsule 100 mg PO TID PRN (Reason: panic attacks ) Patient Comments: Takes as needed for panic attacks; taken about 2 weeks ago esomeprazole magnesium 40 mg capsule,delayed release(DR/EC) 40 mg PO QDAY levothyroxine 75 mcg tablet 75 mcg PO QDAY sertraline 100 mg tablet 200 mg PO DAILY aripiprazole 20 mg tablet 20 mg PO DAILY bupropion HCl 300 mg tablet extended release 24 hr 300 mg PO DAILY ipratropium-albuterol 0.5 mg-3 mg(2.5 mg base)/3 mL solution for nebulization 3 ml inhalation 4X/DAY PRN (Reason: Shortness of breath/wheeze) Qty: 180 0RF albuterol sulfate 90 mcg/actuation HFA aerosol inhaler 2 puff inhalation Q4H PRN (Reason: Wheezing/SOB) hydroxyzine HCl 25 mg tablet 25 mg PO TID roflumilast 500 mcg tablet 500 mcg PO DAILY ferrous fumarate 324 mg (106 mg iron) tablet 324 mg PO DAILY (DME) blood pressure monitor [Blood Pressure Kit] Kit See Rx Instructions .ROUTE .MEDSUPPLY Qty: 1 0RF Rx Instructions: Check daily and as needed (DME) Pulse oximeter See Rx Instructions .Route .MEDSUPPLY Qty: 1 0RF Rx Instructions: Monitor daily or as needed (DME) Ultra-Light Rollator Misc See Rx Instructions .ROUTE .MEDSUPPLY Qty: 1 0RF Rx Instructions: As directed (DME) underpads [Bed Underpads] Pad See Rx Instructions .Route Qty: 40 6RF Rx Instructions: R32. prednisone 10 mg tablet 10 mg PO QDAY Qty: 30 3RF Primary Care Provider: Tre Weston Referrals: Tre Weston MD [Primary Care Provider] - Moncho Ghosh DO [Med Staff - Active Staff] - 1 Week if not improving Activity Restrictions/Additional Instructions: Continue refraining from NSAID use. Follow-up with Dr. Ghosh and gastroenterology in 1 week if not improving. Return with increased rectal bleeding, new or worsening symptoms. Print Language: Mauritian Disposition Disposition: Home, Self Care Discharge Date/Time: 05/07/25 12:40
[2025-05-07 09:37] LABS: Hematocrit 37.7 % (37-47); Hemoglobin 11.3 g/dL (12.0-15.0); Immature Granulocytes Count 0.100 X10^3/uL (0.0-0.0); Mean Corp Hgb Conc 30.0 g/dL (32-36); Mean Corpuscular Volume 82.7 fL (81-99); Mean Platelet Vol. 8.0 fl (6.2-12.0); NRBC Flagged by Analyzer 0 % (0-5); Platelet Count 286 K/mm3 (150-450); RBC Distribution Width CV 19.1 % (11.6-14.6); RBC Distribution Width SD 57.5 fl (35.1-43.9); Red Blood Count 4.56 M/mm3 (4.2-5.4); White Blood Count 13.2 K/mm3 (4.4-11.0)
[2025-05-07 10:30] LABS: Anion Gap 9 (5-15); BUN 22 mg/dL (4-19); BUN/Creat Ratio 21.6 RATIO (10-20); Calcium,Total 9.6 mg/dL (7.6-11.0); Carbon Dioxide 31.5 mmol/L (21.0-32.0); Chloride 100 mmol/L (98-108); Glucose 99 mg/dL (70-99); Potassium 4.1 mmol/L (3.3-5.1)
== END 2025-05-07 12:40 | disposition home or self-care (01) ==
PROVIDERS: Emergency Provider Emergency Medicine; PCP Family Medicine; Visit Provider Emergency Medicine
DX: K92.2 Gastrointestinal hemorrhage, unspecified (principal); K55.20 Angiodysplasia of colon without hemorrhage; Z87.891 Personal history of nicotine dependence
CPT/HCPCS: 80048; 82274; 85025; 99283; A4216

== ENCOUNTER 2025-05-10 15:41 | Emergency (ER) | payer MEDICARE, MEDICAID, SELFPAY ==
[2025-03-13 11:57] VITALS: BMI 41.0
[2025-05-10 15:44] VITALS: BP 129/69; PULSE 77; RESP 20; TEMP 36.4; O2SAT 93
[2025-05-10 17:31] LABS: Hematocrit 34.2 % (37-47); Hemoglobin 10.7 g/dL (12.0-15.0); Mean Corp Hgb Conc 31.3 g/dL (32-36); Mean Corpuscular Volume 81.2 fL (81-99); Mean Platelet Vol. 8.2 fl (6.2-12.0); Platelet Count 256 K/mm3 (150-450); RBC Distribution Width CV 18.7 % (11.6-14.6); RBC Distribution Width SD 55.4 fl (35.1-43.9); Red Blood Count 4.21 M/mm3 (4.2-5.4); White Blood Count 14.3 K/mm3 (4.4-11.0)
[2025-05-10 17:43] VITALS: BP 136/67; PULSE 65; RESP 14; O2SAT 99
[2025-05-10 17:48] LABS: Anion Gap 11 (5-15); BUN 16 mg/dL (4-19); BUN/Creat Ratio 18.3 RATIO (10-20); Calcium,Total 9.9 mg/dL (7.6-11.0); Carbon Dioxide 28.1 mmol/L (21.0-32.0); Chloride 96 mmol/L (98-108); Glucose 144 mg/dL (70-99); Potassium 4.7 mmol/L (3.3-5.1)
[2025-05-10 18:11] VITALS: BMI 44.1
--- NOTE | 2025-05-10 18:19 | EX.ED.DYSGE1 ---
HPI History of Present Illness Chief Complaint: GI Bleed Detail of Chief Complaint: Black stool Informant: patient Onset/Context/Timing Onset: Today Context: Sudden Onset Timing: Intermittent Quality: Black stool. Patient Location: History of GI bleed Current Severity: Moderate Maximum Severity: Moderate Worsened by: Nothing Relieved by: Nothing Narrative Narrative: Patient is a 69-year-old woman with history of GI bleed. She has history of iron deficiency anemia. She has undergone colonoscopy and EGD by Dr. Ghosh. Colonoscopy revealed diverticulosis in the rectosigmoid colon and sigmoid colon. There was a single bleeding colonic angiodysplastic lesion noted and treated with 8 probe. This was performed on March 28, 2025. She had an EGD on March 28 as well and revealed normal esophagus, normal stomach, no gross lesions in the entire examined duodenum. Dr. Ghosh's office visit from April 05 was reviewed. Assessment was anemia. She had a recent capsule endoscopy showing an AVM and possible ulcer in the small bowel.s recommendation was referral for deep enteroscopy. She is scheduled to be seen in May at [facility]. Patient presents today because of reported black stool. She denies orthostatic symptoms. She denies dyspnea or dyspnea on exertion. She denies anginal symptoms. She complains of some mild abdominal discomfort in the suprapubic region. Prior similar symptoms: Yes Recent Illness/Hospitalization: Yes [facility] Medical History Asymptomatic bacteriuria Urge incontinence Nocturia Overactive bladder Anemia Emotional problems Chronic hypoxemic respiratory failure Hypertension Right knee DJD Spondylosis, lumbar, with myelopathy Cervicalgia Cholelithiasis Ventral hernia Abnormal biliary HIDA scan Hypothyroidism (acquired) Tobacco use disorder, continuous Mixed obstructive and restrictive ventilatory defect Spinal stenosis of lumbar region at multiple levels Nicotine dependence, cigarettes, in remission PTSD (post-traumatic stress disorder) Chronic respiratory failure with hypoxia Bladder disease History of pain when walking History of rheumatic fever History of ESBL E. coli infection Wears dentures Wears glasses Thyroid disease Walker as ambulation aid Uses wheelchair Gastric reflux Former smoker Dependence on continuous supplemental oxygen Shortness of breath on exertion History of echocardiogram Hypoxia BMI 40.0-44.9, adult Spinal stenosis Encounter for screening for malignant neoplasm of lung in current smoker with 30 pack year history or greater Degenerative lumbar spinal stenosis Oral thrush Cough due to bronchospasm Dyspnea on exertion Arthritis Kidney stones GERD (gastroesophageal reflux disease) Anxiety and depression Home Medications ?Medication ?Instructions ?Recorded ?Last Taken ?Type sertraline 100 mg tablet 200 mg PO DAILY depression 10/23/20 03/27/25 History aripiprazole 20 mg tablet 20 mg PO DAILY mood 01/06/21 03/27/25 History Pulse oximeter #1 ea 02/05/21 Unknown Rx blood pressure monitor (Blood #1 ea 02/05/21 Unknown Rx Pressure Kit) walker (Ultra-Light Rollator misc) #1 ea 03/24/21 Unknown Rx underpads (Bed Underpads) #40 ea 02/16/22 Unknown Rx nebulizer 12/08/22 Unknown History bupropion HCl 300 mg 24 hr tablet, 300 mg PO DAILY mental health 06/21/24 03/27/25 History extended release esomeprazole magnesium 40 mg 40 mg PO QDAY reflux 09/07/24 03/27/25 History capsule,delayed release furosemide 20 mg tablet 20 mg PO QDAY diuretic 01/31/25 03/27/25 History lisinopril 20 mg tablet 20 mg PO QDAY blood pressure 01/31/25 03/27/25 History pregabalin 100 mg capsule 100 mg PO TID PRN panic attacks 01/31/25 03/27/25 History albuterol sulfate 90 mcg/actuation 2 puff inhalation Q4H PRN 03/12/25 03/20/25 History aerosol inhaler Wheezing/SOB hydroxyzine HCl 25 mg tablet 25 mg PO TID Anxiety 03/12/25 03/27/25 History ipratropium 0.5 mg-albuterol 3 mg 3 ml inhalation 4X/DAY PRN 03/12/25 03/27/25 Rx (2.5 mg base)/3 mL nebulization Shortness of breath/wheeze #180 mL soln roflumilast 500 mcg tablet 500 mcg PO DAILY COPD 03/12/25 03/27/25 History ferrous fumarate 324 mg (106 mg 324 mg PO DAILY anemia 03/20/25 03/27/25 History iron) tablet levothyroxine 75 mcg tablet 75 mcg PO QDAY 04/23/25 Unknown History prednisone 10 mg tablet 10 mg PO QDAY #30 tabs 04/24/25 Unknown Rx Allergy/AdvReac Type Severity Reaction Status Date / Time Sulfa (Sulfonamide Allergy Vomiting Verified 09/12/25 15:44 Antibiotics) Family History Mother Diabetes Hypertension Breast cancer Father Heart disease Hypertension Myocardial infarction, Onset Age: 46 Surgical History History of esophagogastroduodenoscopy (EGD) Hx of hernia repair Hx of cholecystectomy History of hand surgery History of hysterectomy History of History of D&C Social History household members: none Smoking Status: Former smoker quit date: 01/03/21 Tobacco: How many years used: 36 alcohol intake: never substance use type: does not use what type of physical activity do you participate in: none ROS ROS ED Constitutional Constitutional ED: Denies chills, fever(s), subjective, sweats or weight loss Cardiovascular Cardiovascular: Denies chest pain or palpitations EXAM Physical Exam Const Vital Signs: 05/10/25 15:44 05/10/25 17:43 05/10/25 18:23 Temperature 97.6 F L Temperature Source Temporal Pulse Rate 77 65 Pulse Rate [Lying] 64 Pulse Rate [Sitting (for 1 minute prior to obtaining)] 70 Pulse Rate [Standing (for 1 minute prior to obtaining)] 88 Respiratory Rate 20 H 14 Blood Pressure 129/69 H 136/67 H Blood Pressure [Lying] 140/73 H Blood Pressure [Sitting (for 1 minute prior to obtaining)] 143/76 H Blood Pressure [Standing (for 1 minute prior to obtaining)] 124/87 H Blood Pressure Mean 89 90 Blood Pressure Mean [Lying] 95 Blood Pressure Mean [Sitting (for 1 minute prior to obtaining)] 98 Blood Pressure Mean [Standing (for 1 minute prior to obtaining)] 99 Pulse Ox 93 99 Oxygen Delivery Method Nasal Cannula Nasal Cannula Oxygen Flow Rate (L/min) 5 5 MDM MDM MDM Narrative Medical decision making narrative: Need to evaluate for GI bleed. When I told the patient of her results her roommate and cloth mender games in the room. She informed her that she had bright red blood per rectum. In light of this anoscopy was performed. Anoscopy reveals a hemorrhoid at 5:00 lithotomy position. Stool above the scope is a grayish-green color. It is not black. There is no maroon-colored stool. There is no bright red blood noted above the scope. There is no blood mixed in with the stool. Suspect her bright red blood per rectum is due to external hemorrhoid. Lab Data Attestation: I reviewed the patient's lab results. Lab results narrative: CBC reveals slight elevated white count. H&H is at baseline. BUN and creatinine are normal and BUN to creatinine ratio less than 21. Stool is a dark green color and not melena in my opinion patient does not have a GI bleed and she will be discharged to home Labs: Laboratory Results - last 24 hr 05/10/25 17:10 WBC 14.3 H RBC 4.21 Hgb 10.7 L Hct 34.2 L MCV 81.2 MCH 25.4 L MCHC 31.3 L RDW Std Deviation 55.4 H RDW Coeff of Ronny 18.7 H Plt Count 256 MPV 8.2 Sodium 135 Potassium 4.7 Chloride 96 L Carbon Dioxide 28.1 Anion Gap 11 BUN 16 Creatinine 0.88 Est GFR (MDRD) Non-Af 70 BUN/Creatinine Ratio 18.3 Glucose 144 H Calcium 9.9 Blood Type O POSITIVE Discharge Plan Triage Chief Complaint: GI Bleed ED Provider: Delfino Salmeron Dx/Rx/DC Orders Clinical Impression: Black stool, AVM (arteriovenous malformation) of colon, Arteriovenous malformation small bowel, History of small intestine ulcer, Chronic anemia, Bleeding external hemorrhoids Instructions: ED Anemia, Type Not Specified (Adult), ED Hemorrhoids Prescriptions: No Action (DME) nebulizer 0 .Route .MEDSUPPLY lisinopril 20 mg tablet 20 mg PO QDAY furosemide 20 mg tablet 20 mg PO QDAY pregabalin 100 mg capsule 100 mg PO TID PRN (Reason: panic attacks ) Patient Comments: Takes as needed for panic attacks; taken about 2 weeks ago esomeprazole magnesium 40 mg capsule,delayed release(DR/EC) 40 mg PO QDAY levothyroxine 75 mcg tablet 75 mcg PO QDAY sertraline 100 mg tablet 200 mg PO DAILY aripiprazole 20 mg tablet 20 mg PO DAILY bupropion HCl 300 mg tablet extended release 24 hr 300 mg PO DAILY ipratropium-albuterol 0.5 mg-3 mg(2.5 mg base)/3 mL solution for nebulization 3 ml inhalation 4X/DAY PRN (Reason: Shortness of breath/wheeze) Qty: 180 0RF albuterol sulfate 90 mcg/actuation HFA aerosol inhaler 2 puff inhalation Q4H PRN (Reason: Wheezing/SOB) hydroxyzine HCl 25 mg tablet 25 mg PO TID roflumilast 500 mcg tablet 500 mcg PO DAILY ferrous fumarate 324 mg (106 mg iron) tablet 324 mg PO DAILY (DME) blood pressure monitor [Blood Pressure Kit] Kit See Rx Instructions .ROUTE .MEDSUPPLY Qty: 1 0RF Rx Instructions: Check daily and as needed (DME) Pulse oximeter See Rx Instructions .Route .MEDSUPPLY Qty: 1 0RF Rx Instructions: Monitor daily or as needed (DME) Ultra-Light Rollator Misc See Rx Instructions .ROUTE .MEDSUPPLY Qty: 1 0RF Rx Instructions: As directed (DME) underpads [Bed Underpads] Pad See Rx Instructions .Route Qty: 40 6RF Rx Instructions: R32. prednisone 10 mg tablet 10 mg PO QDAY Qty: 30 3RF Primary Care Provider: Tre Weston Referrals: Tre Weston MD [Primary Care Provider] - As Needed Print Language: Portuguese Disposition Disposition: Home, Self Care
[2025-05-10 18:23] VITALS: BP 124/87; BP 140/73; BP 143/76; PULSE 64; PULSE 70; PULSE 88
[2025-05-10 18:50] VITALS: BP 136/85; PULSE 65; RESP 14; TEMP 36.4; O2SAT 99
[2025-05-10 18:51] VITALS: BP 136/85
== END 2025-05-10 18:55 | disposition home or self-care (01) ==
PROVIDERS: Emergency Provider Emergency Medicine; PCP Family Medicine; Visit Provider Emergency Medicine
DX: K55.20 Angiodysplasia of colon without hemorrhage (principal); D64.9 Anemia, unspecified; K64.4 Residual hemorrhoidal skin tags; Z87.891 Personal history of nicotine dependence
CPT/HCPCS: 80048; 85027; 86850; 86900; 86901; 99284; A4216

== ENCOUNTER → 2025-05-17 | Outpatient (CLI) | payer MEDICARE, MEDICAID, SELFPAY ==
[2025-03-13 11:57] VITALS: BMI 41.0
[2025-05-17 15:22] LABS: Hematocrit 37.3 % (37-47); Hemoglobin 11.1 g/dL (12.0-15.0); Immature Granulocytes Count 0.070 X10^3/uL (0.0-0.0); Mean Corp Hgb Conc 29.8 g/dL (32-36); Mean Corpuscular Volume 83.4 fL (81-99); Mean Platelet Vol. 8.6 fl (6.2-12.0); NRBC Flagged by Analyzer 0 % (0-5); Platelet Count 296 K/mm3 (150-450); RBC Distribution Width CV 18.3 % (11.6-14.6); RBC Distribution Width SD 55.6 fl (35.1-43.9); Red Blood Count 4.47 M/mm3 (4.2-5.4); White Blood Count 13.0 K/mm3 (4.4-11.0)
[2025-05-17 16:01] LABS: Iron 36 ug/dL (50-170); Vitamin B12 315 pg/mL (180-914)
[2025-05-17 16:20] LABS: FOLATES,SERUM (FOLIC ACID) 8.34 ng/mL (4.60-34.80)
[2025-05-22 09:08] LABS: Copper, Serum or Plasma 93 ug/dL (80-158); Zinc, Plasma or Serum 104 ug/dL (44-115)
== END | disposition home or self-care (01) ==
PROVIDERS: PCP Family Medicine; Referring Provider Family Medicine; Visit Provider Family Medicine
DX: D64.9 Anemia, unspecified (principal)
CPT/HCPCS: 36415; 82525; 82607; 82746; 83540; 84630; 85025; 86200

== ENCOUNTER 2025-06-10 13:19 | Inpatient (IN) | payer MEDICARE, MEDICAID, SELFPAY ==
[2025-03-13 11:57] VITALS: BMI 41.0
[2025-06-10] VITALS (18 sets, daily range): BP systolic 96–138; BP diastolic 64–91; PULSE 82–109; RESP 12–21; TEMP 36.6–37; O2SAT 93–98; BMI 42.5
--- NOTE | 2025-06-10 14:15 | EKG12_ITS ---
Test Reason : CHEST TIGHTNESS/SOB Blood Pressure : */* mmHG Vent. Rate : 106 BPM Atrial Rate : 106 BPM P-R Int : 142 ms QRS Dur : 78 ms QT Int : 344 ms P-R-T Axes : 53 45 59 degrees QTcB Int : 456 ms Sinus tachycardia Otherwise normal ECG Confirmed by DUKE POWERS, ROBE ([id number]), editor in chief newspaper NOAH CHAPA ([id number]) on 06/12/2025 7:28:30 AM Referred By: Confirmed By: ROBE WALL MD
[2025-06-10 14:24] LABS: Hematocrit 39.8 % (37-47); Hemoglobin 12.3 g/dL (12.0-15.0); Immature Granulocytes Count 0.160 X10^3/uL (0.0-0.0); Mean Corp Hgb Conc 30.9 g/dL (32-36); Mean Corpuscular Volume 80.9 fL (81-99); Mean Platelet Vol. 8.3 fl (6.2-12.0); NRBC Flagged by Analyzer 0 % (0-5); Platelet Count 356 K/mm3 (150-450); RBC Distribution Width CV 15.9 % (11.6-14.6); RBC Distribution Width SD 46.9 fl (35.1-43.9); Red Blood Count 4.92 M/mm3 (4.2-5.4); White Blood Count 16.9 K/mm3 (4.4-11.0)
[2025-06-10 14:39] LABS: Anion Gap 13 (5-15); BUN 39 mg/dL (4-19); BUN/Creat Ratio 27.5 RATIO (10-20); Calcium,Total 10.6 mg/dL (7.6-11.0); Carbon Dioxide 27.8 mmol/L (21.0-32.0); Chloride 98 mmol/L (98-108); Estimated Creatinine Clearance 38.08 ml/min (50-250); Glucose 117 mg/dL (70-99); Potassium 3.9 mmol/L (3.3-5.1); Troponin T High Sensitivity 32 ng/L (<=14)
--- NOTE | 2025-06-10 14:50 | ED.VIS.DYS ---
HPI History of Present Illness Chief Complaint: Shortness of Breath Narrative Narrative: Chief complaint and HPI: 69-year-old female with past medical history of COPD, GERD, overactive bladder, hypothyroidism, chronic hypoxia on 3 L nasal cannula presents for evaluation of shortness of breath. Patient states for the past 2 weeks she has had URI symptoms and cough. States her shortness of breath is progressively worsening. Shortness of breath is worse with ambulation. Also endorses generalized weakness. Has been using her DuoNebs with little relief. Follows with pulmonology, Dr. Yao. She denies any fever, chills, chest pain, abdominal pain, nausea, vomiting, dysuria, bilateral lower extremity swelling. Review of systems: See HPI Medications: As listed on the chart Allergies: As listed on the chart PFSH: Per chart Vital signs: As listed on the chart. Reviewed. Physical exam: Gen: A&O x3, NAD Head: Normocephalic, atraumatic Eyes: No sclera icterus, conjunctiva clear ENT: Moist mucous membranes Neck: Trachea midline CV: Tachycardic, regular rhythm, no murmurs, no peripheral edema Resp: Lungs diminished in the bilateral bases, coarse, expiratory wheeze, on 4 L nasal cannula GI: Abd soft, non-distended, non-tender, no r/r/g Musc: Moves all extremities, no deformity Skin: Warm, dry Neuro: Alert, oriented, grossly intact, sensation intact Psych: Cooperative, appropriate mood and affect [facility] Medical History Asymptomatic bacteriuria Urge incontinence Nocturia Overactive bladder Anemia Emotional problems Chronic hypoxemic respiratory failure Hypertension Right knee DJD Spondylosis, lumbar, with myelopathy Cervicalgia Cholelithiasis Ventral hernia Abnormal biliary HIDA scan Hypothyroidism (acquired) Tobacco use disorder, continuous Mixed obstructive and restrictive ventilatory defect Spinal stenosis of lumbar region at multiple levels Nicotine dependence, cigarettes, in remission PTSD (post-traumatic stress disorder) Chronic respiratory failure with hypoxia Bladder disease History of pain when walking History of rheumatic fever History of ESBL E. coli infection Wears dentures Wears glasses Thyroid disease Walker as ambulation aid Uses wheelchair Gastric reflux Former smoker Dependence on continuous supplemental oxygen Shortness of breath on exertion History of echocardiogram Hypoxia BMI 40.0-44.9, adult Spinal stenosis Encounter for screening for malignant neoplasm of lung in current smoker with 30 pack year history or greater Degenerative lumbar spinal stenosis Oral thrush Cough due to bronchospasm Dyspnea on exertion Arthritis Kidney stones GERD (gastroesophageal reflux disease) Anxiety and depression Home Medications Medication Instructions Recorded Last Taken Type sertraline 100 mg tablet 200 mg PO DAILY depression 10/23/20 06/10/25 History aripiprazole 20 mg tablet 20 mg PO DAILY mood 01/06/21 06/10/25 History Pulse oximeter #1 ea 02/05/21 Unknown Rx blood pressure monitor (Blood #1 ea 02/05/21 Unknown Rx Pressure Kit) walker (Ultra-Light Rollator misc) #1 ea 03/24/21 Unknown Rx underpads (Bed Underpads) #40 ea 02/16/22 Unknown Rx nebulizer 12/08/22 Unknown History bupropion HCl 300 mg 24 hr tablet, 300 mg PO DAILY mental health 06/21/24 06/10/25 History extended release esomeprazole magnesium 40 mg 40 mg PO QDAY reflux 09/07/24 06/10/25 History capsule,delayed release furosemide 20 mg tablet 20 mg PO QDAY diuretic 01/31/25 06/10/25 History lisinopril 20 mg tablet 20 mg PO QDAY blood pressure 01/31/25 06/10/25 History pregabalin 100 mg capsule 100 mg PO TID PRN panic attacks 01/31/25 06/10/25 History albuterol sulfate 90 mcg/actuation 2 puff inhalation Q4H PRN 03/12/25 06/10/25 History aerosol inhaler Wheezing/SOB roflumilast 500 mcg tablet 500 mcg PO DAILY COPD 03/12/25 06/10/25 History levothyroxine 75 mcg tablet 75 mcg PO QDAY 04/23/25 06/10/25 History prednisone 10 mg tablet 10 mg PO QDAY PREVENTATIVE #30 tabs 04/24/25 06/10/25 Rx budesonide 160 mcg-glycopyr 9 2 inh inhalation BID COPD 06/10/25 06/10/25 History mcg-formot 4.8 mcg/actuation HFA inhaler (Breztri Aerosphere) ferrous fumarate 324 mg (106 mg 324 mg PO DAILY SUPPLEMENT 06/10/25 06/10/25 History iron) tablet hydroxyzine HCl 25 mg tablet 25 mg PO TID PRN PANIC ATTACKS 06/10/25 06/10/25 History latanoprost 0.005 % eye drops 1 drp ophthalmic (eye) DAILY 06/10/25 06/10/25 History GLAUCOMA Allergy/AdvReac Type Severity Reaction Status Date / Time Sulfa (Sulfonamide Allergy Vomiting Verified 06/10/25 13:21 Antibiotics) Family History Mother Diabetes Hypertension Breast cancer Father Heart disease Hypertension Myocardial infarction, Onset Age: 46 Surgical History History of esophagogastroduodenoscopy (EGD) Hx of hernia repair Hx of cholecystectomy History of hand surgery History of hysterectomy History of History of D&C Social History household members: none Smoking Status: Former smoker quit date: 01/03/21 Tobacco: How many years used: 36 alcohol intake: never substance use type: does not use what type of physical activity do you participate in: none EXAM Physical Exam Const Vital Signs: 06/10/25 13:19 06/10/25 13:51 06/10/25 13:51 Temperature 97.9 F Temperature Source Oral Pulse Rate 109 H Respiratory Rate 20 H 18 Respiratory Effort Respiratory Depth Respiratory Pattern Blood Pressure 108/70 Blood Pressure Mean 82 Pulse Ox 93 96 Oxygen Delivery Method Nasal Cannula Nasal Cannula Nasal Cannula Oxygen Flow Rate (L/min) 4 4 4 06/10/25 14:43 06/10/25 14:46 06/10/25 14:58 Temperature Temperature Source Pulse Rate 108 H 103 H Respiratory Rate 16 12 Respiratory Effort Respiratory Depth Respiratory Pattern Blood Pressure Blood Pressure Mean Pulse Ox 98 Oxygen Delivery Method Nasal Cannula Oxygen Flow Rate (L/min) 4 06/10/25 15:00 06/10/25 15:07 06/10/25 15:08 Temperature 97.9 F Temperature Source Oral Pulse Rate 105 H 105 H Respiratory Rate 15 15 Respiratory Effort Respiratory Depth Respiratory Pattern Blood Pressure 103/91 H 103/91 H 103/91 H Blood Pressure Mean 97 95 95 Pulse Ox 98 98 Oxygen Delivery Method Nasal Cannula Nasal Cannula Oxygen Flow Rate (L/min) 4 4 06/10/25 15:09 06/10/25 15:15 06/10/25 15:30 Temperature Temperature Source Pulse Rate 105 H Respiratory Rate 17 Respiratory Effort Short of Breath Respiratory Depth Normal Respiratory Pattern Normal Blood Pressure 98/64 107/65 Blood Pressure Mean 77 76 Pulse Ox 97 Oxygen Delivery Method Nasal Cannula Oxygen Flow Rate (L/min) 4 06/10/25 15:30 06/10/25 15:30 06/10/25 15:45 Temperature Temperature Source Pulse Rate 105 H 106 H Respiratory Rate 18 17 Respiratory Effort Respiratory Depth Respiratory Pattern Blood Pressure 107/65 107/65 124/89 H Blood Pressure Mean 76 76 100 Pulse Ox 97 96 Oxygen Delivery Method Oxygen Flow Rate (L/min) 06/10/25 16:00 06/10/25 16:28 06/10/25 16:55 Temperature 98.6 F 98.6 F Temperature Source Oral Oral Pulse Rate 100 102 H 94 Respiratory Rate 21 H 16 17 Respiratory Effort Respiratory Depth Respiratory Pattern Blood Pressure 96/67 138/82 H 128/83 H Blood Pressure Mean 76 100 98 Pulse Ox 98 97 97 Oxygen Delivery Method Nasal Cannula Nasal Cannula Nasal Cannula Oxygen Flow Rate (L/min) 4 4 4 06/10/25 16:55 Temperature 98.6 F Temperature Source Pulse Rate 94 Respiratory Rate 17 Respiratory Effort Respiratory Depth Respiratory Pattern Blood Pressure 128/83 H Blood Pressure Mean 98 Pulse Ox 97 Oxygen Delivery Method Oxygen Flow Rate (L/min) MDM MDM MDM Narrative Medical decision making narrative: 69-year-old female with past medical history of COPD, GERD, overactive bladder, hypothyroidism, chronic hypoxia on 3 L nasal cannula presents for evaluation of shortness of breath. Patient states for the past 2 weeks she has had URI symptoms and cough. States her shortness of breath is progressively worsening. Shortness of breath is worse with ambulation. On presentation, patient is tachycardic and mildly tachypneic. She is on her baseline 4 L nasal cannula. DuoNeb and Solu-Medrol ordered. Respiratory workup ordered. Differential diagnosis includes but is not limited to viral illness, pneumonia, COPD exacerbation, electrolyte abnormality, CHF, ACS. CBC with leukocytosis of 16.9. No anemia. Platelets unremarkable. BMP shows mild renal insufficiency with creatinine of 1.43. Troponin 32. Repeat troponin 28. Patient not actively having chest pain. COVID, flu, RSV negative. VBG with mild hypercapnia 54.2. Normal pH. BNP unremarkable. At this point in time, I suspect patient's symptoms are secondary to his COPD exacerbation. On reevaluation, she still has wheezing. Patient is on her baseline oxygen. She was ambulated in the emergency department and became dyspneic. Does not feel comfortable discharging home. Given that patient is progressively worsening despite home treatment, I do think it is appropriate to admit the patient for continued treatment. I discussed the patient with Dr. Monge. She accepted admission. Will start her on Levaquin. EKG: Interpreted by me/EM physician: EKG shows sinus tachycardia without any acute ischemic changes. Heart rate 106 Diagnostic: Interpreted by me/EM physician: Chest x-ray without large effusion, cardiomegaly, pneumothorax, consolidation. Patient has atelectasis. Radiology in agreement. Impression: 1. COPD exacerbation 2. Renal insufficiency Lab Data Labs: Laboratory Results - last 24 hr 06/10/25 06/10/25 14:02 16:04 WBC 16.9 H RBC 4.92 Hgb 12.3 Hct 39.8 MCV 80.9 L MCH 25.0 L MCHC 30.9 L RDW Std Deviation 46.9 H RDW Coeff of Ronny 15.9 H Plt Count 356 MPV 8.3 Immature Gran % (Auto) 0.900 Neut % (Auto) 82.3 H Lymph % (Auto) 9.8 L [place] % (Auto) 5.4 Eos % (Auto) 1.2 Baso % (Auto) 0.4 Absolute Neuts (auto) 13.9 H Absolute Lymphs (auto) 1.66 Nucleated RBC % 0 Sodium 139 Potassium 3.9 Chloride 98 Carbon Dioxide 27.8 Anion Gap 13 BUN 39 H Creatinine 1.43 H Estim Creat Clear Calc 38.08 L Est GFR (MDRD) Non-Af 39 L BUN/Creatinine Ratio 27.5 H Glucose 117 H Calcium 10.6 Troponin T High Sens 32 H Troponin T Hi Sens 2 Hr 28 H NT pro BNP II 38 ABG Data ABG results: ABG 06/10/25 16:07 Specimen Type DIANA Sample Site Not entered VBG pH 7.39 VBG pO2 66 H VBG HCO3 32 H VBG Total CO2 34 H VBG O2 Sat (Calc) 92 H VBG Base Excess 7 H POC Mix VBG pCO2 Pt Tmp 54.2 H O2 Delivery Device Not entered Radiography Diagnostic Testing: Clinical Impression(s) from Imaging Studies Chest X-Ray 06/10/25 15:35 IMPRESSION: Emphysema. Reading Location: [facility] Discharge Plan Triage Chief Complaint: Shortness of Breath ED Provider: Juan Diego Boyce Dx/Rx/DC Orders Prescriptions: No Action (DME) nebulizer 0 .Route .MEDSUPPLY lisinopril 20 mg tablet 20 mg PO QDAY furosemide 20 mg tablet 20 mg PO QDAY pregabalin 100 mg capsule 100 mg PO TID PRN (Reason: panic attacks ) Patient Comments: Takes as needed for panic attacks; taken about 2 weeks ago esomeprazole magnesium 40 mg capsule,delayed release(DR/EC) 40 mg PO QDAY levothyroxine 75 mcg tablet 75 mcg PO QDAY sertraline 100 mg tablet 200 mg PO DAILY aripiprazole 20 mg tablet 20 mg PO DAILY bupropion HCl 300 mg tablet extended release 24 hr 300 mg PO DAILY albuterol sulfate 90 mcg/actuation HFA aerosol inhaler 2 puff inhalation Q4H PRN (Reason: Wheezing/SOB) roflumilast 500 mcg tablet 500 mcg PO DAILY Breztri Aerosphere 160-9-4.8 mcg/actuation HFA aerosol inhaler 2 inh inhalation BID hydroxyzine HCl 25 mg tablet 25 mg PO TID PRN (Reason: PANIC ATTACKS) Patient Comments: PT STATES BID ferrous fumarate 324 mg (106 mg iron) tablet 324 mg PO DAILY latanoprost 0.005 % drops 1 drp ophthalmic (eye) DAILY (DME) blood pressure monitor [Blood Pressure Kit] Kit See Rx Instructions .ROUTE .MEDSUPPLY Qty: 1 0RF Rx Instructions: Check daily and as needed (DME) Pulse oximeter See Rx Instructions .Route .MEDSUPPLY Qty: 1 0RF Rx Instructions: Monitor daily or as needed (DME) Ultra-Light Rollator Misc See Rx Instructions .ROUTE .MEDSUPPLY Qty: 1 0RF Rx Instructions: As directed (DME) underpads [Bed Underpads] Pad See Rx Instructions .Route Qty: 40 6RF Rx Instructions: R32. prednisone 10 mg tablet 10 mg PO QDAY Qty: 30 3RF Primary Care Provider: Tre Westno Referrals: Tre Weston MD [Primary Care Provider, Family Practice] Print Language: Korean
--- NOTE | 2025-06-10 15:35 | RAD_ITS ---
PROCEDURE: CHEST PA AND LATERAL 06/10/2025 REASON FOR EXAM: SHORTNESS OF BREATH TECHNIQUE: Procedure Code: RADCXR Modality: DX Procedure: CHEST PA AND LATERAL COMPARISON: March 11, 2025 FINDINGS: Hardware: EKG leads Heart: Normal size Mediastinum: There are atherosclerotic calcifications of the thoracic aorta. Lungs: Hyperlucent upper lobes consistent with emphysema. Subsegmental atelectasis or scarring at the lung bases. No consolidation. Bones: Degenerative changes are identified within the thoracic spine. RAD/Chest PA and Lateral IMPRESSION: Emphysema. Reading Location: [id number]
[2025-06-10 16:12] LABS: SITE Not entered; VBG BASE EXCESS 7 mmol/L (-1.0-3.5); VBG PO2 66 mmHg (25-40); VBG SO2 92 % (50-70); VBG TCO2 34 mmol/L (23-33)
[2025-06-10] MEDS: 0.9% Normal Saline (1000mL) 1,000 ML 1000 ML IV (16:27)
[2025-06-10 16:28] LABS: Pro- Brain NATRIURETIC PEPTIDE 38 pg/mL (<=900)
[2025-06-10 16:38] LABS: Troponin T High Sens 2 HR 28 ng/L (<=14)
--- NOTE | 2025-06-10 17:11 | PCM.HP.STD ---
HPI - General General Date of Admission: 06/10/25 Date of Service: 06/10/25 Chief Complaint: Shortness of breath HPI Narrative MAX TOM, is a 69 F who presented to the emergency department at [facility] on 06/10/2025 with a chief complaint of worsening shortness of breath. Patient states that at baseline she has COPD and wears 4 L nasal cannula and she has been doing okay on her baseline oxygen however she is extremely poor exercise reserve and bad shortness of breath exertion to the point she can only walk a few feet before she has to stop. She states she has been notably wheezy at home. She reports she started having symptoms about 2 weeks ago and has progressively gotten worse. She has had chills but no fever. She has had sick contacts in the house. She also has had some mild nausea and some generalized weakness. She has been using her home DuoNebs with little relief and has been compliant with her home therapy otherwise. She follows an outpatient with Dr. Yao. It appears per pulmonology records she is supposed to be on 3 L at baseline however it looks like she may be up titrated her oxygen independently of pulmonary recommendations. She does get frequent exacerbations per documentation. Patient no longer smokes. Vital signs on presentation showed temperature of 97.9, heart rate 109, respiratory 20, blood pressure is 108/70 and pulse ox was 93% on 4 L nasal cannula. She remained 93% with exertion however she was not able to go very far due to extreme shortness of breath. CBC showed a leukocytosis with a white count of 16.9 and a left shift having a 82.3% neutrophilia. A VBG showed a pH of 7.39. Chemistry panel showed elevated serum creatinine from baseline of 0.8-1 currently at 1.43 with a BUN of 39. Blood glucose is 117. Initial troponin was 32 with a delta of 28 and a 4-hour troponin of 21. proBNP was 38. Checked x-ray showed emphysematous changes only. Given the fact the patient gets so extremely short of breath with exertion it was felt that admission was warranted as she is fairly limited from a functional status at baseline on her most recent PFTs from 2020 her DLCO low is 38% predicted. Her FEV1 was 52% predicted. [facility] Medical History Asymptomatic bacteriuria Urge incontinence Nocturia Overactive bladder Emotional problems Anemia Chronic hypoxemic respiratory failure Bladder disease History of pain when walking History of rheumatic fever History of ESBL E. coli infection Wears dentures Wears glasses Thyroid disease Walker as ambulation aid Uses wheelchair Gastric reflux Former smoker Dependence on continuous supplemental oxygen Shortness of breath on exertion History of echocardiogram Hypoxia Hypertension Right knee DJD Spondylosis, lumbar, with myelopathy Cervicalgia Cholelithiasis Ventral hernia Abnormal biliary HIDA scan Hypothyroidism (acquired) BMI 40.0-44.9, adult Spinal stenosis Encounter for screening for malignant neoplasm of lung in current smoker with 30 pack year history or greater Tobacco use disorder, continuous Mixed obstructive and restrictive ventilatory defect Degenerative lumbar spinal stenosis Spinal stenosis of lumbar region at multiple levels Chronic respiratory failure with hypoxia Oral thrush Nicotine dependence, cigarettes, in remission Cough due to bronchospasm Dyspnea on exertion Arthritis Kidney stones GERD (gastroesophageal reflux disease) Anxiety and depression PTSD (post-traumatic stress disorder) Home Medications Medication Instructions Recorded Last Taken Type sertraline 100 mg tablet 200 mg PO DAILY depression 10/23/20 06/10/25 History aripiprazole 20 mg tablet 20 mg PO DAILY mood 01/06/21 06/10/25 History Pulse oximeter #1 ea 02/05/21 Unknown Rx blood pressure monitor (Blood #1 ea 02/05/21 Unknown Rx Pressure Kit) walker (Ultra-Light Rollator misc) #1 ea 03/24/21 Unknown Rx underpads (Bed Underpads) #40 ea 02/16/22 Unknown Rx nebulizer 12/08/22 Unknown History bupropion HCl 300 mg 24 hr tablet, 300 mg PO DAILY mental health 06/21/24 06/10/25 History extended release esomeprazole magnesium 40 mg 40 mg PO QDAY reflux 09/07/24 06/10/25 History capsule,delayed release furosemide 20 mg tablet 20 mg PO QDAY diuretic 01/31/25 06/10/25 History lisinopril 20 mg tablet 20 mg PO QDAY blood pressure 01/31/25 06/10/25 History pregabalin 100 mg capsule 100 mg PO TID PRN panic attacks 01/31/25 06/10/25 History albuterol sulfate 90 mcg/actuation 2 puff inhalation Q4H PRN 03/12/25 06/10/25 History aerosol inhaler Wheezing/SOB roflumilast 500 mcg tablet 500 mcg PO DAILY COPD 03/12/25 06/10/25 History levothyroxine 75 mcg tablet 75 mcg PO QDAY 04/23/25 06/10/25 History prednisone 10 mg tablet 10 mg PO QDAY PREVENTATIVE #30 tabs 04/24/25 06/10/25 Rx budesonide 160 mcg-glycopyr 9 2 inh inhalation BID COPD 06/10/25 06/10/25 History mcg-formot 4.8 mcg/actuation HFA inhaler (Breztri Aerosphere) ferrous fumarate 324 mg (106 mg 324 mg PO DAILY SUPPLEMENT 06/10/25 06/10/25 History iron) tablet hydroxyzine HCl 25 mg tablet 25 mg PO TID PRN PANIC ATTACKS 06/10/25 06/10/25 History latanoprost 0.005 % eye drops 1 drp ophthalmic (eye) DAILY 06/10/25 06/10/25 History GLAUCOMA Allergy/AdvReac Type Severity Reaction Status Date / Time Sulfa (Sulfonamide Allergy Vomiting Verified 06/10/25 13:21 Antibiotics) Family History Mother Diabetes Hypertension Breast cancer Father Heart disease Hypertension Myocardial infarction, Onset Age: 46 Surgical History History of esophagogastroduodenoscopy (EGD) Hx of hernia repair Hx of cholecystectomy History of hand surgery History of hysterectomy History of History of D&C Social History household members: friend(s) and none housing: house Smoking Status: Former smoker quit date: 01/03/21 Tobacco: How many years used: 36 alcohol intake: never substance use type: does not use what type of physical activity do you participate in: none ROS Constitutional Constitutional: Reports anorexia, chills, fatigue, malaise and weakness; Denies change in weight, fever(s), night sweats or other Eyes Eyes: Denies blurry vision, change in eye color, change in vision, discharge from eye(s), double vision, erythema, eye pain, loss of vision or other ENT HEENT: Denies abnormal hearing, dysphagia, ear pain, epistaxis, headache(s), hearing loss, nasal congestion, nasal discharge, post nasal drip, sinus pressure, sore throat or other Cardiovascular Cardiovascular: Reports dyspnea on exertion; Denies chest pain, claudication, edema, lightheadedness, orthopnea, palpitations, paroxysmal nocturnal dyspnea, rapid heart rate, syncope or other Respiratory/Chest Respiratory/Chest: Reports cough, dyspnea, excessive phlegm production, productive cough, shortness of breath at rest, shortness of breath with exertion and wheezing; Denies hemoptysis or other Gastrointestinal Gastrointestinal: Reports nausea; Denies abdominal pain, coffee ground emesis, constipation, diarrhea, dyspepsia, hematemesis, hematochezia, loose stools, melena, vomiting or other Genitourinary Genitourinary: Denies burning urination, difficulty urinating, dysuria, hematuria, nocturia, urinary frequency, urinary hesitancy, urinary incontinence, urinary urgency or other Musculoskeletal Musculoskeletal: Reports back pain; Denies arthralgias, joint pain, joint stiffness, joint swelling, myalgias, neck pain or other Neurologic Neurologic: Denies abnormal gait, abnormal speech, confusion, disequilibrium, dizziness, focal weakness, headache(s), numbness, paresthesias, seizure-like activity, seizures, syncope, tingling, tremor(s) or other Psychiatric Psychiatric: Reports depression; Denies anxiety, homicidal ideation, suicidal ideation or other Endocrine Endocrinology: Denies change in body appearance, cold intolerance, excessive sweating, heat intolerance, polydipsia, polyuria or other Hematologic/Lymphatic Hematologic/Lymphatic: Denies anemia, easy bleeding, easy bruising, lymphadenopathy or other Allergic/Immunologic Allergic/Immunologic: Denies rhinitis, hives, eczemia, asthma or other Vital Signs Vital Signs Vital Signs: 06/10/25 13:19 06/10/25 13:51 06/10/25 13:51 Temperature 97.9 F Temperature Source Oral Pulse Rate 109 H Respiratory Rate 20 H 18 Respiratory Effort Respiratory Depth Respiratory Pattern Blood Pressure 108/70 Blood Pressure Mean 82 Pulse Ox 93 96 Oxygen Delivery Method Nasal Cannula Nasal Cannula Nasal Cannula Oxygen Flow Rate (L/min) 4 4 4 06/10/25 14:43 06/10/25 14:46 06/10/25 14:58 Temperature Temperature Source Pulse Rate 108 H 103 H Respiratory Rate 16 12 Respiratory Effort Respiratory Depth Respiratory Pattern Blood Pressure Blood Pressure Mean Pulse Ox 98 Oxygen Delivery Method Nasal Cannula Oxygen Flow Rate (L/min) 4 06/10/25 15:00 06/10/25 15:07 06/10/25 15:08 Temperature 97.9 F Temperature Source Oral Pulse Rate 105 H 105 H Respiratory Rate 15 15 Respiratory Effort Respiratory Depth Respiratory Pattern Blood Pressure 103/91 H 103/91 H 103/91 H Blood Pressure Mean 97 95 95 Pulse Ox 98 98 Oxygen Delivery Method Nasal Cannula Nasal Cannula Oxygen Flow Rate (L/min) 4 4 06/10/25 15:09 06/10/25 15:15 06/10/25 15:30 Temperature Temperature Source Pulse Rate 105 H Respiratory Rate 17 Respiratory Effort Short of Breath Respiratory Depth Normal Respiratory Pattern Normal Blood Pressure 98/64 107/65 Blood Pressure Mean 77 76 Pulse Ox 97 Oxygen Delivery Method Nasal Cannula Oxygen Flow Rate (L/min) 4 06/10/25 15:30 06/10/25 15:30 06/10/25 15:45 Temperature Temperature Source Pulse Rate 105 H 106 H Respiratory Rate 18 17 Respiratory Effort Respiratory Depth Respiratory Pattern Blood Pressure 107/65 107/65 124/89 H Blood Pressure Mean 76 76 100 Pulse Ox 97 96 Oxygen Delivery Method Oxygen Flow Rate (L/min) 06/10/25 16:00 06/10/25 16:28 06/10/25 16:55 Temperature 98.6 F 98.6 F Temperature Source Oral Oral Pulse Rate 100 102 H 94 Respiratory Rate 21 H 16 17 Respiratory Effort Respiratory Depth Respiratory Pattern Blood Pressure 96/67 138/82 H 128/83 H Blood Pressure Mean 76 100 98 Pulse Ox 98 97 97 Oxygen Delivery Method Nasal Cannula Nasal Cannula Nasal Cannula Oxygen Flow Rate (L/min) 4 4 4 06/10/25 16:55 Temperature 98.6 F Temperature Source Pulse Rate 94 Respiratory Rate 17 Respiratory Effort Respiratory Depth Respiratory Pattern Blood Pressure 128/83 H Blood Pressure Mean 98 Pulse Ox 97 Oxygen Delivery Method Oxygen Flow Rate (L/min) Weight Weight: 98.883 kg Body Mass Index (BMI) 42.5 Physical Exam Const alert, oriented x3, no apparent distress and well nourished; Negative for average body habitus or healthy appearing Constitutional Narrative: Morbidly obese, white female, reclining in bed in the emergency department, appears ill but not toxic, can hear audible wheezing as I enter the room, appears fatigued General Appearance: cooperative HEENT normocephalic, head/scalp atraumatic and hearing grossly normal bilaterally HEENT Narrative: Mucous membranes are slightly dry, Mallampati is 3-4, no thrush, dentures in place Eyes conjunctivae normal Eyes Narrative: No scleral icterus Neck supple Neck Narrative: Neck is short and thick, trachea midline Resp No normal respiratory effort, no retractions, no use of accessory muscles and No clear to auscultation bilaterally Resp Narrative: Diffuse end expiratory and inspiratory wheezes mild tachypnea but no signs of respiratory extremis or distress Auscultation: wheezes; Negative for crackles or rhonchi Cardio regular rate, regular rhythm, S1 normal heart sound, S2 normal heart sound, no murmurs, no rub, no gallops and no clicks GI normal to inspection, nondistended, normoactive bowel sounds, soft to palpation and non-tender GI Narrative: Large protuberant abdomen Extremity Extremity Narrative: No significant edema bilateral lower extremities, clubbing is noted, no cyanosis Skin no jaundice, no petechiae and no mottling Neuro moves all extremities and no focal motor deficits Speech: speech normal Psych Psych Narrative: Affect is slightly flat but appropriate for the situation and how she is feeling, eye contact is good and patient interacts appropriately Results Lab / Micro Data 06/10/25 14:02 06/10/25 14:02 Labs: Laboratory Results - last 24 hr 06/10/25 14:02: WBC 16.9 H, RBC 4.92, Hgb 12.3, Hct 39.8, MCV 80.9 L, MCH 25.0 L, MCHC 30.9 L, RDW Std Deviation 46.9 H, RDW Coeff of Ronny 15.9 H, Plt Count 356, MPV 8.3, Immature Gran % (Auto) 0.900, Neut % (Auto) 82.3 H, Lymph % (Auto) 9.8 L, [place] % (Auto) 5.4, Eos % (Auto) 1.2, Baso % (Auto) 0.4, Absolute Neuts (auto) 13.9 H, Absolute Lymphs (auto) 1.66, Nucleated RBC % 0, Sodium 139, Potassium 3.9, Chloride 98, Carbon Dioxide 27.8, Anion Gap 13, BUN 39 H, Creatinine 1.43 H, Estim Creat Clear Calc 38.08 L, Est GFR (MDRD) Non-Af 39 L, BUN/Creatinine Ratio 27.5 H, Glucose 117 H, Calcium 10.6, Troponin T High Sens 32 H, NT pro BNP II 38 06/10/25 16:04: Troponin T Hi Sens 2 Hr 28 H Micro: Microbiology 06/10/25 14:02 Mucosa - Nose SARS-CoV-2, Influenza & RSV (PCR) - Final ABG Data ABG results: ABG 06/10/25 16:07 Specimen Type DIANA Sample Site Not entered VBG pH 7.39 VBG pO2 66 H VBG HCO3 32 H VBG Total CO2 34 H VBG O2 Sat (Calc) 92 H VBG Base Excess 7 H POC Mix VBG pCO2 Pt Tmp 54.2 H O2 Delivery Device Not entered Imaging Radiology Impression Chest X-Ray 06/10/25 15:35 IMPRESSION: Emphysema. Reading Location: [facility] Assessment & Plan Assessment/Plan (1) Chronic hypoxic respiratory failure: (2) COPD with acute exacerbation: (3) Shortness of breath: (4) FADUMO (acute kidney injury): (5) Leukocytosis: (6) Elevated troponin: PLAN: Plan Shortness of breath secondary to acute exacerbation of COPD with history of chronic hypoxic respiratory failure - Baseline oxygen is 3 L per documentation from Dr. Yao's office in January 2025 - patient is currently requiring 4 L to maintain oxygen saturation and it sounds as if patient has been wearing this much at home pretty consistently -Will need ambulatory pulse ox prior to discharge - most recent PFTs from 2020 her DLCO low is 38% predicted. Her FEV1 was 52% predicted - Patient has a change in sputum production so we will start her on Levaquin - Solu-Medrol 40 every 8 - Aggressive pulmonary toilet - I-S - Acapella 10 times every 2 hours while awake - Hold home medications and restart at discharge - COVID/flu/RSV is negative - check respiratory viral panel - sputum culture is ordered Leukocytosis - With change in sputum production and severe COPD baseline little treat with Levaquin - Sputum culture has been ordered - Repeat CBC in a.m. Elevated troponin - Suspect secondary to demand ischemia from hypoxia and upper respiratory infection - No further workup at this time - BNP is normal FADUMO - Baseline renal function appears to run between 0.8 and 1 - 1.44 on presentation - states she has not been drinking or eating much recently because she has not been feeling well - Hold home Lasix - Patient received 1 L of IV fluids in the emergency department and we will give her 1 more and reassess renal function in a.m. GERD - Continue home PPI Anxiety/depression/panic disorder/PTSD - Continue home Abilify - Continue home sertraline - Continue home Lyrica - Continue home as needed hydroxyzine - Continue home Wellbutrin Glaucoma - Continue home eyedrops Essential hypertension - Continue home lisinopril but watch renal function closely - I do expect renal function to improve with IV fluids Hypothyroidism - Continue home levothyroxine Morbid obesity - BMI is 42.5 - Recommend weight loss - Complicates treatment, prognosis, outcomes - Patient should likely have polysomnography however I do suspect she may not be tolerant of CPAP with history of PTSD History of tobacco abuse - Remote - Encouraged ongoing cessation DVT prophylaxis - Subcu Lovenox twice daily CODE STATUS - DNR CCA with no intubation as per discussion prior to admission Charges/Coding Visit Charges Inpatient E&M: 86024 Init Hosp L2
--- NOTE | 2025-06-10 17:30 | CASEMGMT ---
Care Management Face to Face with patient for initial transition planning/care coordination assessment in the ED. This web content writer introduced self and role at [facility]. Patient alert and oriented. Patient willing to participate in assessment and is able to answer all questions appropriately. Care providers, pharmacy, and demographics verified. Admitting Diagnosis: Chronic hypoxic respiratory failure, COPD with acute exacerbation Other diagnosis history: COPD, GERD, overactive bladder, hypothyroidism, chronic hypoxia PCP: Trista Specialists: Chris, orthopedics. Maximilian, pulmonology. Preferred Pharmacy: [facility] [place] Insurance: [employer] (primary). [employer] (secondary). Prescription Benefit: yes Living Will/HPOA: friend, Kayleen (primary). Sister, Kay (secondary). LNOK: friend, Kayleen. Living Arrangements: lives with Kayleen in a 2 story home with first floor living. No steps to enter and patient reports to be independent at home with ADLs/IADLs. Transportation: Kayleen drives patient when needed DME: shower chair, hospital bed, grab bars, rollator, wheelchair, nebulizer, pulse ox, home O2 (4L continuous) through [employer] HHC: [facility] (current) SNF/Rehab: none Community Resources: previously set up with [facility], but patient does not believe patient is active with this at this time. Patient goals: Patient wishes to discharge home and desires for [facility] to resume. Patient denies any further needs or concerns at this time. Disposition Plan: admission to acute; RN CM/SW to follow for discharge planning needs that may arise. Nga Ramirez, CLOUD SYSTEMS ARCHITECT, ROBOTIC TOY INVENTOR
[2025-06-10] MEDS: Lactated Ringers 1,000 ML 75 ML IV (18:54)
[2025-06-10 19:10] LABS: Troponin T High Sens 4 HR 21 ng/L (<=14)
[2025-06-11] VITALS (11 sets, daily range): BP systolic 96–143; BP diastolic 54–79; PULSE 74–98; RESP 14–18; TEMP 36.2–36.7; O2SAT 94–97; BMI 42.7
[2025-06-11 07:35] LABS: Hematocrit 35.0 % (37-47); Hemoglobin 10.8 g/dL (12.0-15.0); Immature Granulocytes Count 0.180 X10^3/uL (0.0-0.0); Mean Corp Hgb Conc 30.9 g/dL (32-36); Mean Corpuscular Volume 80.3 fL (81-99); Mean Platelet Vol. 8.3 fl (6.2-12.0); NRBC Flagged by Analyzer 0 % (0-5); Platelet Count 267 K/mm3 (150-450); RBC Distribution Width CV 15.6 % (11.6-14.6); RBC Distribution Width SD 45.6 fl (35.1-43.9); Red Blood Count 4.36 M/mm3 (4.2-5.4); White Blood Count 12.8 K/mm3 (4.4-11.0)
[2025-06-11 08:26] LABS: AST(SGOT) 39 U/L (<=31); Alanine Aminotransfer ALT/SGPT 40 U/L (<=34); Albumin, Serum 3.6 g/dL (3.4-4.8); Alkaline Phosphatase 122 U/L (35-104); Anion Gap 10 (5-15); BUN 35 mg/dL (4-19); BUN/Creat Ratio 31.1 RATIO (10-20); Calcium,Total 9.9 mg/dL (7.6-11.0); Carbon Dioxide 25.5 mmol/L (21.0-32.0); Chloride 100 mmol/L (98-108); Estimated Creatinine Clearance 48.98 ml/min (50-250); Globulin 2.8 g/dL (2.2-4.2); Glucose 130 mg/dL (70-99); Magnesium 1.9 mg/dL (1.5-2.2); Potassium 4.6 mmol/L (3.3-5.1)
[2025-06-11] MEDS: FLU VACCINE HIGH DOSE 25-26(65YR UP) 180 MCG/0.5 ML SYRINGE IM (09:28)
[2025-06-11] MEDS: 0.9% Saline Lock 10 ML Syringe IV ×2 (09:37→14:00)
[2025-06-11] MEDS: buPROPion (XL) 300 MG TABLET.XL PO (09:39)
--- NOTE | 2025-06-11 10:26 | CASEMGMT ---
Addendum entered by Unique Marquez 06/11/25 10:51: [facility] verified that pt is active and receives PT/SN. Unique Marquez DC Planning Asst. Original Note: Discharge Planning Msg sent via [facility] to [facility] to confirm that pt is active and verify disciplines receiving. Awaiting response. Unique Marquez DC Planning Asst.
[2025-06-11] MEDS: Latanoprost 0.005% 1 Bottle 1 DRP OPHTHALMIC (10:35)
--- NOTE | 2025-06-11 10:55 | CASEMGMT ---
SYDNI CM into pt room, pt sitting up in bed with oxygen on in no distress. Discussed that pt is active with [facility] for SN and PT, pt confirmed. Pt states she would like this agency to resume upon dc. She denies need for a list of other options to choose from. Pt asks if her sister Johnnie was removed from her contacts, she is aware that she is per her request. She denies need to add another contact. Pt reports she has portable oxygen tanks at home and one can be brought in at time of dc for transport home. Pt denies any further needs at this time.
--- NOTE | 2025-06-11 12:52 | CASEMGMT ---
Social Work SW met w/pt in room. SW did inquire w/pt if she wanted to update her POA papers. Her sister Johnnie is on the document as the alternate and pt states she has had a "setback." She states that she does not think her sister would be able to help w/decisions anymore. Her POA is her friend Kayleen. SW printed the document and gave to pt to review. At this time she does not want to make any changes, she states she does not have anyone else to add to the document. SW did give pt the RAC card w/the SW number and put them both in her discharge packet. SW explained to pt that if she would want to update the documents at some point, she can call to make an appt to complete new POA for Healthcare. Pt states understanding. NOEMÍ Lorenzo
--- NOTE | 2025-06-11 14:23 | PCM.PN.HOSP ---
Reason for Visit Chief Complaint: Shortness of breath Subjective Subjective Patient was seen and examined today, at rest she requires 4 L of oxygen-she says this is her home setting. Patient states for the last week she has had increased shortness of breath with a nonproductive cough. Her respiratory panel is negative. Objective Data Objective Data Vital Signs: Vital Signs Temp Pulse Resp BP Pulse Ox O2 Del Method O2 Flow Rate 97.2 F L 98 18 96/54 L 94 Nasal Cannula 4 06/11/25 14:04 06/11/25 14:04 06/11/25 14:04 06/11/25 14:04 06/11/25 14:04 06/11/25 14:09 06/11/25 14:09 Oxygen Flow Rate (L/min) 4 Oxygen Delivery Method Nasal Cannula Weight: 98.6 kg Body Mass Index (BMI) 42.7 Intake & Output: Intake and Output for Last 24 Hours 06/09/25 06/10/25 06/11/25 23:59 23:59 23:59 Intake Total 1000 / 1100 1100 / 1100 Balance 1000 / 1100 1100 / 1100 Lab / Micro Data 06/11/25 07:17 06/11/25 07:17 Labs: Laboratory Results - last 24 hr 06/10/25 14:02: WBC 16.9 H, RBC 4.92, Hgb 12.3, Hct 39.8, MCV 80.9 L, MCH 25.0 L, MCHC 30.9 L, RDW Std Deviation 46.9 H, RDW Coeff of Ronny 15.9 H, Plt Count 356, MPV 8.3, Immature Gran % (Auto) 0.900, Neut % (Auto) 82.3 H, Lymph % (Auto) 9.8 L, Leake % (Auto) 5.4, Eos % (Auto) 1.2, Baso % (Auto) 0.4, Absolute Neuts (auto) 13.9 H, Absolute Lymphs (auto) 1.66, Nucleated RBC % 0, Sodium 139, Potassium 3.9, Chloride 98, Carbon Dioxide 27.8, Anion Gap 13, BUN 39 H, Creatinine 1.43 H, Estim Creat Clear Calc 38.08 L, Est GFR (MDRD) Non-Af 39 L, BUN/Creatinine Ratio 27.5 H, Glucose 117 H, Calcium 10.6, Troponin T High Sens 32 H, NT pro BNP II 38 06/10/25 16:04: Troponin T Hi Sens 2 Hr 28 H 06/10/25 18:28: Troponin T Hi Sens 4Hr 21 H 06/11/25 07:17: WBC 12.8 H, RBC 4.36, Hgb 10.8 L, Hct 35.0 L, MCV 80.3 L, MCH 24.8 L, MCHC 30.9 L, RDW Std Deviation 45.6 H, RDW Coeff of Ronny 15.6 H, Plt Count 267, MPV 8.3, Immature Gran % (Auto) 1.400 H, Neut % (Auto) 89.1 H, Lymph % (Auto) 5.6 L, Leake % (Auto) 3.6, Eos % (Auto) 0.0, Baso % (Auto) 0.3, Absolute Neuts (auto) 11.4 H, Absolute Lymphs (auto) 0.72 L, Nucleated RBC % 0, Sodium 136, Potassium 4.6, Chloride 100, Carbon Dioxide 25.5, Anion Gap 10, BUN 35 H, Creatinine 1.11, Estim Creat Clear Calc 48.98 L, Est GFR (MDRD) Non-Af 53 L, BUN/Creatinine Ratio 31.1 H, Glucose 130 H, Calcium 9.9, Phosphorus 3.5, Magnesium 1.9, Total Bilirubin < 0.15, AST 39 H, ALT 40 H, Alkaline Phosphatase 122 H, Total Protein 6.5, Albumin 3.6, Globulin 2.8, Albumin/Globulin Ratio 1.3, TSH 0.263 L Micro: Microbiology 06/10/25 18:50 Sputum, Expectorated/Coughed Gram Stain - Final 06/10/25 18:50 Mucosa - Nasopharyngeal Respiratory Panel (PCR) - Final 06/10/25 14:02 Mucosa - Nose SARS-CoV-2, Influenza & RSV (PCR) - Final ABG Data ABG results: ABG 06/10/25 16:07 Specimen Type DIANA Sample Site Not entered VBG pH 7.39 VBG pO2 66 H VBG HCO3 32 H VBG Total CO2 34 H VBG O2 Sat (Calc) 92 H VBG Base Excess 7 H POC Mix VBG pCO2 Pt Tmp 54.2 H O2 Delivery Device Not entered Radiography Diagnostic Testing: Radiology Impression Chest X-Ray 06/10/25 15:35 IMPRESSION: Emphysema. Reading Location: [facility] Physical Exam Const alert, oriented x3 and no apparent distress General Appearance: cooperative, well kempt and well developed Orientation / Consciousness: awake, oriented to person, oriented to place and oriented to time HEENT normocephalic, head/scalp atraumatic and moist oral mucous membranes Eyes PERRL, EOMs intact bilaterally and conjunctivae normal Neck supple, no JVD, thyroid normal and no carotid bruits General: trachea midline Resp normal respiratory effort, no retractions and no use of accessory muscles Resp Narrative: Scattered expiratory wheezes are noted bilaterally over all lung ng Auscultation: wheezes expiratory wheezes and throughout; Negative for rales or rhonchi Cardio regular rate, regular rhythm, S1 normal heart sound, S2 normal heart sound, no murmurs, no rub and no gallops GI normal to inspection, nondistended, normoactive bowel sounds, soft to palpation, non-tender and non-distended Extremity no clubbing, cyanosis or edema Skin no rashes or lesions noted General Skin Exam: no breakdown Neuro oriented x3, CN's II-XII intact bilaterally, moves all extremities, no focal motor deficits and no sensory deficits noted Sensorium / Orientation: awake and alert Speech: speech normal Psych affect normal Assessment & Plan Assessment/Plan (1) COPD with acute exacerbation: PLAN: Plan 1. Exacerbation of COPD-patient will remain on her aerosol treatments and IV corticosteroids, pulse ox will be monitored #2 chronic hypoxic respiratory failure-patient's pulse ox will be monitored #3 acute kidney injury-resolved #4 essential hypertension-patient is to maintain her outpatient medications including lisinopril and Lasix #5 hypothyroidism-patient is on Synthroid #6 chronic anxiety/depression-patient will remain on her current home medications #7 leukocytosis-etiology unclear, patient was placed on oral Levaquin on admission, I have elected to continue this antibiotic Total clinical time spent by myself addressing the patient's medical issues, reviewing all of her data, and collaborating with the patient's care team: 35 minutes Charges/Coding Visit Charges Inpatient E&M: 21479 Subs Hosp L2
[2025-06-11] MEDS: hydrOXYzine PAM 25 MG Capsule PO (20:08)
[2025-06-11] MEDS: MELATONIN 3 MG TABLET PO (22:25)
[2025-06-12] VITALS (7 sets, daily range): BP systolic 119–150; BP diastolic 53–86; PULSE 69–84; RESP 14–18; TEMP 36.6–37.1; O2SAT 95–100; BMI 42.8
[2025-06-12] MEDS: buPROPion (XL) 300 MG TABLET.XL PO (07:57)
[2025-06-12] MEDS: Latanoprost 0.005% 1 Bottle 1 DRP OPHTHALMIC (07:57)
--- NOTE | 2025-06-12 10:55 | DCINST_ITS ---
Discharge Instructions DC O2, CPAP, BIPAP needs Home O2 Discharge instructions: Yes Type of respiratory needs?: Oxygen Oxygen frequency: Continuous Continuous oxygen liters per minute: 4L Follow Up Care Test Results: Test results from this visit will be discussed in further detail at your follow- up appointment, if applicable. Discharge Plan Admission Admit Date/Time: 06/10/25 17:05 Primary Reason for Your Visit: Exacerbation of COPD Attending Provider: Octaviano Casey Primary Care Provider: Tre Weston Consulting Providers: Mikayla Monge Discharge Orders/Prescriptions Prescriptions: New prednisone 20 mg tablet 20 mg PO BID Qty: 14 0RF azithromycin [Zithromax] 500 mg tablet 500 mg PO DAILY 5 Days Qty: 5 0RF Rx Instructions: start on 06/13/25 Continued (DME) nebulizer 0 .Route .MEDSUPPLY lisinopril 20 mg tablet 20 mg PO QDAY furosemide 20 mg tablet 20 mg PO QDAY pregabalin 100 mg capsule 100 mg PO TID PRN (Reason: panic attacks ) Patient Comments: Takes as needed for panic attacks; taken about 2 weeks ago esomeprazole magnesium 40 mg capsule,delayed release(DR/EC) 40 mg PO QDAY levothyroxine 75 mcg tablet 75 mcg PO QDAY sertraline 100 mg tablet 200 mg PO DAILY aripiprazole 20 mg tablet 20 mg PO DAILY bupropion HCl 300 mg tablet extended release 24 hr 300 mg PO DAILY albuterol sulfate 90 mcg/actuation HFA aerosol inhaler 2 puff inhalation Q4H PRN (Reason: Wheezing/SOB) roflumilast 500 mcg tablet 500 mcg PO DAILY Breztri Aerosphere 160-9-4.8 mcg/actuation HFA aerosol inhaler 2 inh inhalation BID hydroxyzine HCl 25 mg tablet 25 mg PO TID PRN (Reason: PANIC ATTACKS) Patient Comments: PT STATES BID ferrous fumarate 324 mg (106 mg iron) tablet 324 mg PO DAILY latanoprost 0.005 % drops 1 drp ophthalmic (eye) DAILY (DME) blood pressure monitor [Blood Pressure Kit] Kit See Rx Instructions .ROUTE .MEDSUPPLY Qty: 1 0RF Rx Instructions: Check daily and as needed (DME) Pulse oximeter See Rx Instructions .Route .MEDSUPPLY Qty: 1 0RF Rx Instructions: Monitor daily or as needed (DME) Ultra-Light Rollator Misc See Rx Instructions .ROUTE .MEDSUPPLY Qty: 1 0RF Rx Instructions: As directed (DME) underpads [Bed Underpads] Pad See Rx Instructions .Route Qty: 40 6RF Rx Instructions: R32. Discontinued prednisone 10 mg tablet 10 mg PO QDAY Qty: 30 3RF Referrals / Follow Up: Tre Weston MD [Primary Care Provider, Family Practice] - See Referral Note Referral Note: in two weeks Disposition Disposition (needs filled in before D/C Order can be placed): Home, Self Care
--- NOTE | 2025-06-12 11:05 | DS.PCM_ITS ---
Providers Date of Admission: 06/10/25 Date of Discharge: 06/12/25 Primary Care Physician: Tre Weston MD Reason For Visit: AECOPD Diagnosis Discharge Diagnosis (1) COPD with acute exacerbation: Status: Chronic Code(s): J44.1 - Chronic obstructive pulmonary disease with (acute) exacerbation Plan 1. Exacerbation of COPD-patient will remain on her aerosol treatments and IV corticosteroids, pulse ox will be monitored #2 chronic hypoxic respiratory failure-patient's pulse ox will be monitored #3 acute kidney injury-resolved #4 essential hypertension-patient is to maintain her outpatient medications including lisinopril and Lasix #5 hypothyroidism-patient is on Synthroid #6 chronic anxiety/depression-patient will remain on her current home medications #7 leukocytosis-etiology unclear, patient was placed on oral Levaquin on admission, I have elected to continue this antibiotic Total clinical time spent by myself addressing the patient's medical issues, reviewing all of her data, and collaborating with the patient's care team: 35 minutes Medications at Discharge Home Medications sertraline 100 mg tablet 200 mg PO DAILY depression 10/23/20 aripiprazole 20 mg tablet 20 mg PO DAILY mood 01/06/21 Pulse oximeter #1 ea 02/05/21 blood pressure monitor (Blood Pressure Kit) #1 ea 02/05/21 walker (Ultra-Light Rollator misc) #1 ea 03/24/21 underpads (Bed Underpads) #40 ea 02/16/22 nebulizer 12/08/22 bupropion HCl 300 mg 24 hr tablet, extended release 300 mg PO DAILY mental health 06/21/24 esomeprazole magnesium 40 mg capsule,delayed release 40 mg PO QDAY reflux 09/07/24 furosemide 20 mg tablet 20 mg PO QDAY diuretic 01/31/25 lisinopril 20 mg tablet 20 mg PO QDAY blood pressure 01/31/25 pregabalin 100 mg capsule 100 mg PO TID PRN panic attacks 01/31/25 albuterol sulfate 90 mcg/actuation aerosol inhaler 2 puff inhalation Q4H PRN Wheezing/SOB 03/12/25 roflumilast 500 mcg tablet 500 mcg PO DAILY COPD 03/12/25 levothyroxine 75 mcg tablet 75 mcg PO QDAY 04/23/25 budesonide 160 mcg-glycopyr 9 mcg-formot 4.8 mcg/actuation HFA inhaler (Breztri Aerosphere) 2 inh inhalation BID COPD 06/10/25 ferrous fumarate 324 mg (106 mg iron) tablet 324 mg PO DAILY SUPPLEMENT 06/10/25 hydroxyzine HCl 25 mg tablet 25 mg PO TID PRN PANIC ATTACKS 06/10/25 latanoprost 0.005 % eye drops 1 drp ophthalmic (eye) DAILY GLAUCOMA 06/10/25 azithromycin 500 mg tablet (Zithromax) 500 mg PO DAILY 5 days #5 tabs 06/12/25 prednisone 20 mg tablet 20 mg PO BID #14 tabs 06/12/25 Hospital Course Operations None Procedures None Summary of Care Provided Minutes Spent on Discharge: 31 Hospital Course: 69-year-old white female was seen in the emergency room [facility] with a chief complaint of worsening shortness of breath. Patient wears 4 L of oxygen at home at baseline due to COPD. Patient complained of having wheezing at home. Workup in the emergency room included a CBC which showed a white blood cell count of 16.9, chemistry panel showed a creatinine of 1.43 which was elevated over her usual creatinine of 0.8. Pro beta natruretic peptide was normal, chest x-ray showed emphysematous changes. Patient was admitted to [place] [address], she was treated with IV corticosteroids and aerosol treatments. Labs were monitored and her creatinine improved. Patient improved during her hospitalization. On 06/12/2025, patient was seen and examined: On examination she appeared in good health and spirits. Vital signs as documented. Skin warm and dry and without overt rashes. Neck without JVD, neck was supple, trachea midline, thyroid was normal. Lungs clear bilaterally, normal air movement was noted, scattered expiratory wheezing was noted which was not severe. Heart exam notable for regular rhythm, normal sounds and absence of murmurs, rubs or gallops. Abdomen unremarkable and without evidence of organomegaly, masses, or abdominal aortic enlargement. Bowel sounds are present, abdomen is not distended. Extremities nonedematous, no cyanosis was noted, no clubbing was noted. Neuro: Cranial nerves II through XII are grossly intact, no focal motor deficits were noted, sensation to light touch and pinprick intact, motor exam 5/5 throughout. Psych: Patient is alert and oriented x3, she does not appear anxious or depressed, she does not appear agitated. Patient was discharged home in stable condition on 06/12/2025. 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 The patient is mobile in the home and the community. Meaningful Use Info Meaningful Use Meaningful Use Diagnoses (Choose all that apply): None applicable Discharge Plan Admission Admit Date/Time: 06/10/25 17:05 Primary Reason for Your Visit: Exacerbation of COPD Attending Provider: Octaviano Casey Primary Care Provider: Tre Weston Consulting Providers: Mikayla Monge Discharge Orders/Prescriptions Prescriptions: New prednisone 20 mg tablet 20 mg PO BID Qty: 14 0RF azithromycin [Zithromax] 500 mg tablet 500 mg PO DAILY 5 Days Qty: 5 0RF Rx Instructions: start on 06/13/25 Continued (DME) nebulizer 0 .Route .MEDSUPPLY lisinopril 20 mg tablet 20 mg PO QDAY furosemide 20 mg tablet 20 mg PO QDAY pregabalin 100 mg capsule 100 mg PO TID PRN (Reason: panic attacks ) Patient Comments: Takes as needed for panic attacks; taken about 2 weeks ago esomeprazole magnesium 40 mg capsule,delayed release(DR/EC) 40 mg PO QDAY levothyroxine 75 mcg tablet 75 mcg PO QDAY sertraline 100 mg tablet 200 mg PO DAILY aripiprazole 20 mg tablet 20 mg PO DAILY bupropion HCl 300 mg tablet extended release 24 hr 300 mg PO DAILY albuterol sulfate 90 mcg/actuation HFA aerosol inhaler 2 puff inhalation Q4H PRN (Reason: Wheezing/SOB) roflumilast 500 mcg tablet 500 mcg PO DAILY Breztri Aerosphere 160-9-4.8 mcg/actuation HFA aerosol inhaler 2 inh inhalation BID hydroxyzine HCl 25 mg tablet 25 mg PO TID PRN (Reason: PANIC ATTACKS) Patient Comments: PT STATES BID ferrous fumarate 324 mg (106 mg iron) tablet 324 mg PO DAILY latanoprost 0.005 % drops 1 drp ophthalmic (eye) DAILY (DME) blood pressure monitor [Blood Pressure Kit] Kit See Rx Instructions .ROUTE .MEDSUPPLY Qty: 1 0RF Rx Instructions: Check daily and as needed (DME) Pulse oximeter See Rx Instructions .Route .MEDSUPPLY Qty: 1 0RF Rx Instructions: Monitor daily or as needed (DME) Ultra-Light Rollator Misc See Rx Instructions .ROUTE .MEDSUPPLY Qty: 1 0RF Rx Instructions: As directed (DME) underpads [Bed Underpads] Pad See Rx Instructions .Route Qty: 40 6RF Rx Instructions: R32. Discontinued prednisone 10 mg tablet 10 mg PO QDAY Qty: 30 3RF Referrals / Follow Up: Tre Weston MD [Primary Care Provider, Family Practice] - See Referral Note Referral Note: in two weeks Disposition Disposition (needs filled in before D/C Order can be placed): Home Health Service Charges/Coding Visit Charges Inpatient E&M: 04887 Disch Hosp >30min
--- NOTE | 2025-06-12 11:35 | PHA.DC_ITS ---
Pharmacy [facility] has performed discharge medication counseling for this patient. The patient was counseled on the following discharge medications and changes in medications for homegoing review. - Azithromycin 500 mg tablet, Prednisone 20 mg tablet The Reason for Use, instructions for use, and potential side effects were reviewed for all new medications. The patient's questions regarding all of their medications were answered. The patient was able to verbally demonstrate an understanding of their discharge medications. Medications at Discharge Home Medications sertraline 100 mg tablet 200 mg PO DAILY depression 10/23/20 aripiprazole 20 mg tablet 20 mg PO DAILY mood 01/06/21 Pulse oximeter #1 ea 02/05/21 blood pressure monitor (Blood Pressure Kit) #1 ea 02/05/21 walker (Ultra-Light Rollator misc) #1 ea 03/24/21 underpads (Bed Underpads) #40 ea 02/16/22 nebulizer 12/08/22 bupropion HCl 300 mg 24 hr tablet, extended release 300 mg PO DAILY mental health 06/21/24 esomeprazole magnesium 40 mg capsule,delayed release 40 mg PO QDAY reflux 09/07/24 furosemide 20 mg tablet 20 mg PO QDAY diuretic 01/31/25 lisinopril 20 mg tablet 20 mg PO QDAY blood pressure 01/31/25 pregabalin 100 mg capsule 100 mg PO TID PRN panic attacks 01/31/25 albuterol sulfate 90 mcg/actuation aerosol inhaler 2 puff inhalation Q4H PRN Wheezing/SOB 03/12/25 roflumilast 500 mcg tablet 500 mcg PO DAILY COPD 03/12/25 levothyroxine 75 mcg tablet 75 mcg PO QDAY 04/23/25 budesonide 160 mcg-glycopyr 9 mcg-formot 4.8 mcg/actuation HFA inhaler (Breztri Aerosphere) 2 inh inhalation BID COPD 06/10/25 ferrous fumarate 324 mg (106 mg iron) tablet 324 mg PO DAILY SUPPLEMENT 06/10/25 hydroxyzine HCl 25 mg tablet 25 mg PO TID PRN PANIC ATTACKS 06/10/25 latanoprost 0.005 % eye drops 1 drp ophthalmic (eye) DAILY GLAUCOMA 06/10/25 azithromycin 500 mg tablet (Zithromax) 500 mg PO DAILY 5 days #5 tabs 06/12/25 prednisone 20 mg tablet 20 mg PO BID #14 tabs 06/12/25
--- NOTE | 2025-06-12 12:18 | CASEMGMT ---
Spoke with pt nurse and pt does not need an increase in oxygen requirements. Sent HH order and dc instructions to [facility] via [facility] at this time. Pt to dc this date.
== END 2025-06-12 12:37 | disposition home health service (06) | DRG 191 ==
LOC: ED 17:20 → MS3 17:30
PROVIDERS: Admitting Provider Internal Medicine; Emergency Provider Surgery; PCP Family Medicine; Visit Provider Internal Medicine
DX: J44.1 Chronic obstructive pulmonary disease with (acute) exacerbation (principal); N17.9 Acute kidney failure, unspecified; I24.89 Other forms of acute ischemic heart disease; Z68.41 Body mass index [BMI] 40.0-44.9, adult; J96.11 Chronic respiratory failure with hypoxia; Z66 Do not resuscitate; Z99.81 Dependence on supplemental oxygen; E03.9 Hypothyroidism, unspecified; F32.A Depression, unspecified; I10 Essential (primary) hypertension; J43.9 Emphysema, unspecified; E66.01 Morbid (severe) obesity due to excess calories; K21.9 Gastro-esophageal reflux disease without esophagitis; J06.9 Acute upper respiratory infection, unspecified; F41.9 Anxiety disorder, unspecified; D72.829 Elevated white blood cell count, unspecified; H40.9 Unspecified glaucoma; F43.10 Post-traumatic stress disorder, unspecified; Z23 Encounter for immunization; Z11.52 Encounter for screening for COVID-19; Z79.890 Hormone replacement therapy; Z79.52 Long term (current) use of systemic steroids; Z79.899 Other long term (current) drug therapy; Z87.891 Personal history of nicotine dependence
CPT/HCPCS: 36415; 71046; 80048; 80053; 82803; 83735; 83880; 84100; 84443; 84484; 85025; 87070; 87205; 87631; 87633; 93005; 94640; 94668; 97161; 97166; 99252; 99285; A4216; G0463

== ENCOUNTER → 2025-07-01 | Outpatient (CLI) | payer MEDICARE, MEDICAID, SELFPAY ==
[2025-03-13 11:57] VITALS: BMI 41.0
[2025-07-01 18:07] LABS: Hematocrit 32.9 % (37-47); Hemoglobin 9.9 g/dL (12.0-15.0); Immature Granulocytes Count 0.270 X10^3/uL (0.0-0.0); Mean Corp Hgb Conc 30.1 g/dL (32-36); Mean Corpuscular Volume 81.8 fL (81-99); Mean Platelet Vol. 8.4 fl (6.2-12.0); NRBC Flagged by Analyzer 0 % (0-5); Platelet Count 229 K/mm3 (150-450); RBC Distribution Width CV 15.9 % (11.6-14.6); RBC Distribution Width SD 47.6 fl (35.1-43.9); Red Blood Count 4.02 M/mm3 (4.2-5.4); White Blood Count 13.5 K/mm3 (4.4-11.0)
[2025-07-01 18:13] LABS: AST(SGOT) 15 U/L (<=31); Alanine Aminotransfer ALT/SGPT 17 U/L (<=34); Albumin, Serum 3.6 g/dL (3.4-4.8); Alkaline Phosphatase 104 U/L (35-104); Anion Gap 11 (5-15); BUN 13 mg/dL (4-19); BUN/Creat Ratio 12.9 RATIO (10-20); Calcium,Total 9.3 mg/dL (7.6-11.0); Carbon Dioxide 29.1 mmol/L (21.0-32.0); Chloride 93 mmol/L (98-108); Globulin 2.8 g/dL (2.2-4.2); Glucose 100 mg/dL (70-99); Potassium 4.4 mmol/L (3.3-5.1)
== END | disposition home or self-care (01) ==
LOC: MTLAB 11:43 → MFPLAB 11:59
PROVIDERS: PCP Family Medicine; Referring Provider Family Medicine; Visit Provider Family Medicine
DX: D64.9 Anemia, unspecified (principal)
CPT/HCPCS: 36415; 80053; 85025

== ENCOUNTER 2025-07-05 13:32 | Emergency (ER) | payer MEDICARE, MEDICAID, SELFPAY ==
[2025-03-13 11:57] VITALS: BMI 41.0
[2025-07-05 13:33] VITALS: BP 102/68; PULSE 108; RESP 18; TEMP 37; O2SAT 96; BMI 43.7
[2025-07-05 13:36] VITALS: BP 102/68; PULSE 106; RESP 19; TEMP 37; O2SAT 97
[2025-07-05 13:39] VITALS: O2SAT 98
--- NOTE | 2025-07-05 14:13 | EKG12_ITS ---
Test Reason : SOB Blood Pressure : */* mmHG Vent. Rate : 98 BPM Atrial Rate : 98 BPM P-R Int : 146 ms QRS Dur : 82 ms QT Int : 320 ms P-R-T Axes : 45 18 44 degrees QTcB Int : 408 ms Normal sinus rhythm Normal ECG Confirmed by Denzel Celestin ([id number]), newspaper photo editor KINGS SAAVEDRA ([id number]) on 07/10/2025 5:53:43 AM Referred By: Confirmed By: Denzel Celestin
--- NOTE | 2025-07-05 14:20 | RAD_ITS ---
PROCEDURE: CHEST 1 VIEW (PORTABLE) 07/05/2025 REASON FOR EXAM: DYSPNEA TECHNIQUE: Frontal view of the chest. COMPARISON: 06/10/2025 FINDINGS: Hardware: None. Heart: The heart size is normal. Lungs: The lungs are clear. No pneumothorax or pleural effusion. Bones: The bones are unremarkable. RAD/Chest 1 View (Portable) IMPRESSION: No Acute Findings. Reading [facility]
[2025-07-05 14:27] LABS: Hematocrit 34.4 % (37-47); Hemoglobin 10.4 g/dL (12.0-15.0); Immature Granulocytes Count 0.450 X10^3/uL (0.0-0.0); Mean Corp Hgb Conc 30.2 g/dL (32-36); Mean Corpuscular Volume 80.6 fL (81-99); Mean Platelet Vol. 8.2 fl (6.2-12.0); NRBC Flagged by Analyzer 0 % (0-5); Platelet Count 256 K/mm3 (150-450); RBC Distribution Width CV 15.7 % (11.6-14.6); RBC Distribution Width SD 45.5 fl (35.1-43.9); Red Blood Count 4.27 M/mm3 (4.2-5.4); White Blood Count 15.2 K/mm3 (4.4-11.0)
[2025-07-05 14:29] VITALS: PULSE 105; RESP 18
[2025-07-05 14:56] LABS: Anion Gap 10 (5-15); BUN 21 mg/dL (4-19); BUN/Creat Ratio 18.7 RATIO (10-20); Calcium,Total 10.3 mg/dL (7.6-11.0); Carbon Dioxide 30.5 mmol/L (21.0-32.0); Chloride 94 mmol/L (98-108); Estimated Creatinine Clearance 49.38 ml/min (50-250); Glucose 123 mg/dL (70-99); Potassium 4.5 mmol/L (3.3-5.1)
[2025-07-05 15:19] VITALS: BP 101/60; PULSE 100; RESP 16; TEMP 36.6; O2SAT 95
--- NOTE | 2025-07-05 15:48 | ED.VIS.DYS ---
HPI History of Present Illness Chief Complaint: Shortness of Breath Informant: patient, family and EMS Narrative Narrative: 69-year-old female presenting to the emergency room with shortness of breath. Patient has a history of underlying COPD is on chronic 4 L home O2. She states that she got up today and decided to go into the kitchen to eat breakfast. She states that she began to feel short of breath and fatigued. She was unable to really ambulate outside of the kitchen. She did not feel like eating. Symptoms seem to be progressive and EMS was called. EMS notes that her oxygen tubing seem to form did not it was kinked off. They noted that she was hypoxic but came up into the 90s on their oxygen. She notes that she chronically has some degree of wheezing. She notes a slightly worse than normal cough. No reported fever. [facility] Medical History Elevated troponin Leukocytosis FADUMO (acute kidney injury) Shortness of breath COPD with acute exacerbation Chronic hypoxic respiratory failure Asymptomatic bacteriuria Urge incontinence Nocturia Overactive bladder Emotional problems Anemia Chronic hypoxemic respiratory failure Bladder disease History of pain when walking History of rheumatic fever History of ESBL E. coli infection Wears dentures Wears glasses Thyroid disease Walker as ambulation aid Uses wheelchair Gastric reflux Former smoker Dependence on continuous supplemental oxygen Shortness of breath on exertion History of echocardiogram Hypoxia Hypertension Right knee DJD Spondylosis, lumbar, with myelopathy Cervicalgia Cholelithiasis Ventral hernia Abnormal biliary HIDA scan Hypothyroidism (acquired) BMI 40.0-44.9, adult Spinal stenosis Encounter for screening for malignant neoplasm of lung in current smoker with 30 pack year history or greater Tobacco use disorder, continuous Mixed obstructive and restrictive ventilatory defect Degenerative lumbar spinal stenosis Spinal stenosis of lumbar region at multiple levels Chronic respiratory failure with hypoxia Oral thrush Nicotine dependence, cigarettes, in remission Cough due to bronchospasm Dyspnea on exertion Arthritis Kidney stones GERD (gastroesophageal reflux disease) Anxiety and depression PTSD (post-traumatic stress disorder) Home Medications ?Medication ?Instructions ?Recorded ?Last Taken ?Type sertraline 100 mg tablet 200 mg PO DAILY depression 10/23/20 06/10/25 History aripiprazole 20 mg tablet 20 mg PO DAILY mood 01/06/21 06/10/25 History Pulse oximeter #1 ea 02/05/21 Unknown Rx blood pressure monitor (Blood #1 ea 02/05/21 Unknown Rx Pressure Kit) deepak [facility] #1 ea 03/24/21 Unknown Rx underpads (Bed Underpads) #40 ea 02/16/22 Unknown Rx nebulizer 12/08/22 Unknown History bupropion HCl 300 mg 24 hr tablet, 300 mg PO DAILY mental health 06/21/24 06/10/25 History extended release esomeprazole magnesium 40 mg 40 mg PO QDAY reflux 09/07/24 06/10/25 History capsule,delayed release furosemide 20 mg tablet 20 mg PO QDAY diuretic 01/31/25 06/10/25 History lisinopril 20 mg tablet 20 mg PO QDAY blood pressure 01/31/25 06/10/25 History pregabalin 100 mg capsule 100 mg PO TID PRN panic attacks 01/31/25 06/10/25 History albuterol sulfate 90 mcg/actuation 2 puff inhalation Q4H PRN 03/12/25 06/10/25 History aerosol inhaler Wheezing/SOB roflumilast 500 mcg tablet 500 mcg PO DAILY COPD 03/12/25 06/10/25 History levothyroxine 75 mcg tablet 75 mcg PO QDAY 04/23/25 06/10/25 History budesonide 160 mcg-glycopyr 9 2 inh inhalation BID COPD 06/10/25 06/10/25 History mcg-formot 4.8 mcg/actuation HFA inhaler (Breztri Aerosphere) ferrous fumarate 324 mg (106 mg 324 mg PO DAILY SUPPLEMENT 06/10/25 06/10/25 History iron) tablet hydroxyzine HCl 25 mg tablet 25 mg PO TID PRN PANIC ATTACKS 06/10/25 06/10/25 History latanoprost 0.005 % eye drops 1 drp ophthalmic (eye) DAILY 06/10/25 06/10/25 History GLAUCOMA azithromycin 500 mg tablet 500 mg PO DAILY 5 days #5 tabs 06/12/25 Unknown Rx (Zithromax) prednisone 20 mg tablet 20 mg PO BID #14 tabs 06/12/25 Unknown Rx prednisone 20 mg tablet 60 mg (3 x 20 mg) PO DAILY #15 07/05/25 Unknown Rx TABLETS Allergy/AdvReac Type Severity Reaction Status Date / Time Sulfa (Sulfonamide Allergy Vomiting Verified 06/10/25 13:21 Antibiotics) Family History Mother Diabetes Hypertension Breast cancer Father Heart disease Hypertension Myocardial infarction, Onset Age: 46 Surgical History History of esophagogastroduodenoscopy (EGD) Hx of hernia repair Hx of cholecystectomy History of hand surgery History of hysterectomy History of History of D&C Social History household members: friend(s) and none housing: house Smoking Status: Former smoker quit date: 01/03/21 Tobacco: How many years used: 36 alcohol intake: never substance use type: does not use what type of physical activity do you participate in: none ROS ROS ED ROS Narrative Generalized fatigue Constitutional Constitutional ED: Denies chills, fever(s) or weight loss Eyes Eyes: Denies change in vision or diplopia ENT ENT ED: Denies ear pain, rhinorrhea or sore throat Cardiovascular Cardiovascular: Denies chest pain, orthopnea, palpitations or racing heartbeat Respiratory/Chest Respiratory/Chest: Reports cough and dyspnea on exertion; Denies dyspnea or orthopnea Gastrointestinal Gastrointestinal: Denies abdominal pain, diarrhea, nausea or vomiting Genitourinary Genitourinary ED: Denies dysuria, hematuria or urinary frequency Musculoskeletal Musculoskeletal: Denies arthralgias or myalgias Integumentary Denies abscess or rash Neurologic Neurologic: Denies headache(s) or weakness Psychiatric Psychiatric: Denies anxiety, depression, suicidal ideation or suicidal thoughts Endocrine Endocrinology: Denies polydipsia, polyphagia or polyuria Allergic/Immunologic Allergic/Immunologic ED: Denies mouth swelling, tongue swelling or urticaria EXAM Physical Exam Const Vital Signs: 07/05/25 13:33 07/05/25 13:36 07/05/25 13:39 Temperature 98.6 F 98.6 F Temperature Source Oral Oral Pulse Rate 108 H 106 H Respiratory Rate 18 19 H Respiratory Effort Short of Breath Respiratory Pattern Blood Pressure 102/68 102/68 Blood Pressure Mean 79 79 Pulse Ox 96 97 Oxygen Delivery Method Nasal Cannula Nasal Cannula Nasal Cannula Oxygen Flow Rate (L/min) 4 4 4 07/05/25 14:13 07/05/25 14:29 07/05/25 14:40 Temperature Temperature Source Pulse Rate 105 H Respiratory Rate 18 Respiratory Effort Respiratory Pattern Tachypnea Blood Pressure Blood Pressure Mean Pulse Ox Oxygen Delivery Method Nasal Cannula Nasal Cannula Oxygen Flow Rate (L/min) 4 4 07/05/25 15:19 Temperature 97.8 F Temperature Source Pulse Rate 100 Respiratory Rate 16 Respiratory Effort Respiratory Pattern Blood Pressure 101/60 Blood Pressure Mean 73 Pulse Ox 95 Oxygen Delivery Method Oxygen Flow Rate (L/min) Positive well nourished and well developed General Appearance ED: well developed and NAD HEENT Reports normocephalic, head/scalp atraumatic and moist mucous membranes Eyes PERRL and EOMs intact bilaterally Neck no lymphadenopathy, supple and no JVD Resp normal respiratory effort Resp Narrative: There are expiratory wheezes at the end of expiration. She does have a slightly moist cough. Cardio regular rate, regular rhythm and no murmurs GI normal to inspection, nondistended, normoactive bowel sounds and non-tender Palpation: soft Back/Spine no CVA tenderness and normal ROM Extremity normal to inspection General Extremety ED: Negative for edema General Extremity: Negative for edema Neuro oriented x3 and CN's II-XII intact bilaterally Sensorium / Orientation: alert Motor Exam: strength 5/5 throughout Psych mental status grossly normal Mood & Affect: Negative for depressed or tearful Skin no rashes or lesions noted and no wounds MDM MDM MDM Narrative Medical decision making narrative: Differential diagnosis includes but not limited to pneumothorax COPD exacerbation pneumonia bronchospasm bronchitis [place] effusion hypoxia anemia Basic blood work obtained shows white count of 15.2. Creatinine 1.12 with a BUN of 21. Glucose 123. My independent interpretation of the chest x-ray is no acute process. Patient's EKG is a normal sinus rhythm at a rate of 98. Patient has been resting company in the bed. She received a DuoNeb. I think her acute symptoms today are most likely the result of hypoxia brought on by her oxygen tubing having a kink in it. Using shared decision making family is going to check her tubing when they get home to ensure that it is free of kinks. She will keep a closer eye on the tubing as she moves around her house. She does take daily prednisone and is wondering about a short course of prednisone. I think this is reasonable. I will prescribe a short burst dose of 60 mg/day. Patient to return if worsening or concerns History & Record Review Discussion w/independent historian: EMS personnel, Patient and Family Additional record(s) reviewed:: Prior ED visit Lab Data Attestation: I reviewed the patient's lab results. Labs: Laboratory Results - last 24 hr 07/05/25 13:40 WBC 15.2 H RBC 4.27 Hgb 10.4 L Hct 34.4 L MCV 80.6 L MCH 24.4 L MCHC 30.2 L RDW Std Deviation 45.5 H RDW Coeff of Ronny 15.7 H Plt Count 256 MPV 8.2 Immature Gran % (Auto) 3.000 H Neut % (Auto) 83.9 H Lymph % (Auto) 6.7 L Cassia % (Auto) 4.5 Eos % (Auto) 1.4 Baso % (Auto) 0.5 Absolute Neuts (auto) 12.8 H Absolute Lymphs (auto) 1.02 Nucleated RBC % 0 Sodium 134 Potassium 4.5 Chloride 94 L Carbon Dioxide 30.5 Anion Gap 10 BUN 21 H Creatinine 1.12 Estim Creat Clear Calc 49.38 L Est GFR (MDRD) Non-Af 53 L BUN/Creatinine Ratio 18.7 Glucose 123 H Calcium 10.3 Radiography Diagnostic Testing: Clinical Impression(s) from Imaging Studies Chest X-Ray 07/05/25 14:20 IMPRESSION: No Acute Findings. Reading Location: [facility] EKG Initial EKG: Attestation: I personally reviewed and interpreted this EKG as follows: Comments: Normal sinus rhythm ventricular rate of 98 bpm Discharge Plan Triage Chief Complaint: Shortness of Breath ED Provider: Anatoliy Bautista Dx/Rx/DC Orders Clinical Impression: COPD (chronic obstructive pulmonary disease), Acute and chronic respiratory failure with hypoxia, Acute dyspnea Instructions: COPD: Wheezing and Chest Tightness Prescriptions: New prednisone 20 mg tablet 60 mg PO DAILY Qty: 15 0RF No Action (DME) nebulizer 0 .Route .MEDSUPPLY lisinopril 20 mg tablet 20 mg PO QDAY furosemide 20 mg tablet 20 mg PO QDAY pregabalin 100 mg capsule 100 mg PO TID PRN (Reason: panic attacks ) Patient Comments: Takes as needed for panic attacks; taken about 2 weeks ago esomeprazole magnesium 40 mg capsule,delayed release(DR/EC) 40 mg PO QDAY levothyroxine 75 mcg tablet 75 mcg PO QDAY sertraline 100 mg tablet 200 mg PO DAILY aripiprazole 20 mg tablet 20 mg PO DAILY bupropion HCl 300 mg tablet extended release 24 hr 300 mg PO DAILY albuterol sulfate 90 mcg/actuation HFA aerosol inhaler 2 puff inhalation Q4H PRN (Reason: Wheezing/SOB) roflumilast 500 mcg tablet 500 mcg PO DAILY Breztri Aerosphere 160-9-4.8 mcg/actuation HFA aerosol inhaler 2 inh inhalation BID hydroxyzine HCl 25 mg tablet 25 mg PO TID PRN (Reason: PANIC ATTACKS) Patient Comments: PT STATES BID ferrous fumarate 324 mg (106 mg iron) tablet 324 mg PO DAILY latanoprost 0.005 % drops 1 drp ophthalmic (eye) DAILY prednisone 20 mg tablet 20 mg PO BID Qty: 14 0RF azithromycin [Zithromax] 500 mg tablet 500 mg PO DAILY 5 Days Qty: 5 0RF Rx Instructions: start on 06/13/25 (DME) blood pressure monitor [Blood Pressure Kit] Kit See Rx Instructions .ROUTE .MEDSUPPLY Qty: 1 0RF Rx Instructions: Check daily and as needed (DME) Pulse oximeter See Rx Instructions .Route .MEDSUPPLY Qty: 1 0RF Rx Instructions: Monitor daily or as needed (DME) Ultra-Light Rollator Misc See Rx Instructions .ROUTE .MEDSUPPLY Qty: 1 0RF Rx Instructions: As directed (DME) underpads [Bed Underpads] Pad See Rx Instructions .Route Qty: 40 6RF Rx Instructions: R32. Primary Care Provider: Tre Weston Referrals: Tre Weston MD [Primary Care Provider, Family Practice] - [facility] appointment Print Language: Vincentian Disposition Disposition: Home, Self Care Discharge Date/Time: 07/05/25 15:23
== END 2025-07-05 15:23 | disposition home or self-care (01) ==
PROVIDERS: Emergency Provider Emergency Medicine; PCP Family Medicine; Visit Provider Emergency Medicine
DX: J44.9 Chronic obstructive pulmonary disease, unspecified (principal); J96.21 Acute and chronic respiratory failure with hypoxia; I10 Essential (primary) hypertension; Z99.81 Dependence on supplemental oxygen; Z79.51 Long term (current) use of inhaled steroids; Z79.52 Long term (current) use of systemic steroids; Z79.899 Other long term (current) drug therapy; Z87.891 Personal history of nicotine dependence
CPT/HCPCS: 71045; 80048; 85025; 93005; 94640; 99285; A4216

== ENCOUNTER → 2025-08-06 | Outpatient (CLI) | payer MEDICARE, MEDICAID, SELFPAY ==
[2025-03-13 11:57] VITALS: BMI 41.0
[2025-08-06 16:26] LABS: Hematocrit 29.3 % (37-47); Hemoglobin 8.5 g/dL (12.0-15.0); Immature Granulocytes Count 0.300 X10^3/uL (0.0-0.0); Mean Corp Hgb Conc 29.0 g/dL (32-36); Mean Corpuscular Volume 79.6 fL (81-99); Mean Platelet Vol. 8.2 fl (6.2-12.0); NRBC Flagged by Analyzer 0 % (0-5); Platelet Count 369 K/mm3 (150-450); RBC Distribution Width CV 16.0 % (11.6-14.6); RBC Distribution Width SD 46.3 fl (35.1-43.9); Red Blood Count 3.68 M/mm3 (4.2-5.4); White Blood Count 14.6 K/mm3 (4.4-11.0)
== END | disposition home or self-care (01) ==
LOC: LABSPEC 15:20
PROVIDERS: PCP Family Medicine; Referring Provider Family Medicine; Visit Provider Family Medicine
DX: D64.9 Anemia, unspecified (principal)
CPT/HCPCS: 85025